=== PATIENT | female | born 1960 | race Caucasian/White ===

== ENCOUNTER → 2017-10-31 09:10 | Outpatient (CLI) | payer MEDICARE, OTHER, SELFPAY ==
[2017-10-31 09:48] LABS: Basophils # 0.1 K/mm3 (0-0.2); Basophils % 0.7 % (0.1-2.0); Eosinophils # 0.2 K/mm3 (0.0-0.4); Eosinophils % 2.3 % (0.1-12.0); Hematocrit 42.1 % (37.0-47.0); Hemoglobin 13.6 g/dL (12.2-16.2); Lymphocytes # 1.7 K/mm3 (0.7-4.5); Lymphocytes % 18.8 K/mm3 (10-50); Mean Corpuscular HGB Conc 32.4 g/dL (31.8-35.4); Mean Corpuscular Hemoglobin 33.5 pg (27.0-31.2); Mean Corpuscular Volume 103.5 fl (81-99); Monocytes # 0.7 K/mm3 (0.1-1.0); Monocytes % 7.8 % (1.7-9.3); Neutrophils # 6.5 K/mm3 (1.8-7.8); Neutrophils % 70.4 % (37.0-80.0); Platelet Count 322 K/mm3 (142-424); Red Blood Count 4.07 M/mm3 (4.20-5.40); Red Cell Distribution Width 15.6 % (11.5-17.5); White Blood Count 9.2 K/mm3 (4.8-10.8)
[2017-10-31 10:44] LABS: Alanine Aminotransferase 25 U/L (12-78); Aspartate Amino Transferase 21 U/L (15-37); Blood Urea Nitrogen 21 mg/dL (7-18); Creatinine,Serum 0.85 mg/dL (0.55-1.02); Estimated Glomerular Filt Rate 69 ml/min (>60); GFR (African American) 84 ML/MIN (>60)
[2017-10-31 10:55] LABS: Chol/HDL Ratio 1.9 (1-3.5); Cholesterol 153 mg/dL (140-200); HDL Cholesterol 79 mg/dL (29-89); LDL Cholesterol 47 mg/dL (0-130); Triglycerides 136 mg/dL (30-200); VLDL Cholesterol 27 mg/dL (0-40)
[2017-11-01 10:16] LABS: Creatinine, Urine 62.7 mg/dL (Not Estab.); Microalbumin, Urine <3.0 ug/mL (Not Estab.)
== END ==
PROVIDERS: Nurse Practitioner; PCP Family Medicine; Visit Provider Family Medicine
DX: M06.9 Rheumatoid arthritis, unspecified (principal); E78.5 Hyperlipidemia, unspecified; I10 Essential (primary) hypertension
CPT/HCPCS: 36415; 80061; 82043; 82565; 84450; 84460; 84520; 85025

== ENCOUNTER → 2018-01-27 10:49 | Outpatient (CLI) | payer MEDICARE, OTHER, SELFPAY ==
--- NOTE | 2018-01-27 10:53 | MM_ITS ---
MM Dig screening mamm BI w/CAD CAD Screening COMPARISON: Digital mammograms 12/27/2016 and 12/09/2015 INDICATION: There is a history of breast cancer patient's mother diagnosed in her 50s TECHNIQUE: Standard CC and MLO images were obtained. R2 CAD reviewed. FINDINGS: The breasts are composed primarily of fat with minimal scattered fiber glandular densities in each breast. There is no suspicious lesion in either breast and there are no suspicious microcalcifications. IMPRESSION: Fatty type breast parenchyma with no suspicious lesion seen BI-RADS Category: 1 Negative RECOMMENDED FOLLOW-UP: 1YR - 1 YEAR FOLLOW-UP (A letter has been sent to the patient regarding results of the study.)
[2018-01-27 11:48] LABS: Basophils # 0.1 K/mm3 (0-0.2); Basophils % 0.4 % (0.1-2.0); Eosinophils # 0.1 K/mm3 (0.0-0.4); Eosinophils % 0.7 % (0.1-12.0); Hematocrit 48.1 % (37.0-47.0); Hemoglobin 15.4 g/dL (12.2-16.2); Lymphocytes # 1.3 K/mm3 (0.7-4.5); Lymphocytes % 7.7 K/mm3 (10-50); Mean Corpuscular HGB Conc 32.1 g/dL (31.8-35.4); Mean Corpuscular Hemoglobin 33.8 pg (27.0-31.2); Mean Corpuscular Volume 105.4 fl (81-99); Mean Platelet Volume 8.4 fl (7.4-10.4); Monocytes # 0.7 K/mm3 (0.1-1.0); Monocytes % 4.1 % (1.7-9.3); Neutrophils # 14.3 K/mm3 (1.8-7.8); Platelet Count 431 K/mm3 (142-424); Red Blood Count 4.57 M/mm3 (4.20-5.40); Red Cell Distribution Width 14.5 % (11.5-17.5); White Blood Count 16.4 K/mm3 (4.8-10.8)
[2018-01-27 11:51] LABS: MANUAL DIFFERENTIAL MANUAL DIFFERENTIAL (MANUAL DIFF)
[2018-01-27 12:30] LABS: Lymphocytes % 3 % (10-50); Monocytes % 6 % (2-9); Neutrophils % 91 % (42-76); Platelet Estimate Slight Increase; Total Cells Counted 100
[2018-01-27 12:31] LABS: Macrocytosis 1+
[2018-01-27 12:32] LABS: Erythrocyte Sedimentation Rate 32 mm/hr (0-30)
[2018-01-27 14:57] LABS: Alanine Aminotransferase 27 U/L (12-78); Aspartate Amino Transferase 24 U/L (15-37); Blood Urea Nitrogen 18 mg/dL (7-18); Creatinine,Serum 1.04 mg/dL (0.55-1.02); Estimated Glomerular Filt Rate 55 ml/min (>60); GFR (African American) 66 ML/MIN (>60)
== END ==
PROVIDERS: Nurse Practitioner; PCP Family Medicine; Visit Provider Family Medicine
DX: Z12.31 Encounter for screening mammogram for malignant neoplasm of breast (principal); M06.9 Rheumatoid arthritis, unspecified
CPT/HCPCS: 36415; 77067; 82565; 84450; 84460; 84520; 85007; 85025; 85651

== ENCOUNTER → 2018-02-15 13:23 | Outpatient (CLI) | payer MEDICARE, OTHER, SELFPAY ==
[2018-02-15 14:04] LABS: Basophils % 0.3 % (0.1-2.0); Eosinophils % 0.3 % (0.1-12.0); Hematocrit 43.5 % (37.0-47.0); Hemoglobin 14.3 g/dL (12.2-16.2); Lymphocytes # 0.9 K/mm3 (0.7-4.5); Mean Corpuscular Hemoglobin 33.8 pg (27.0-31.2); Mean Corpuscular Volume 102.5 fl (81-99); Mean Platelet Volume 8.4 fl (7.4-10.4); Monocytes # 0.8 K/mm3 (0.1-1.0); Monocytes % 5.7 % (1.7-9.3); Neutrophils # 11.6 K/mm3 (1.8-7.8); Neutrophils % 86.7 % (37.0-80.0); Platelet Count 342 K/mm3 (142-424); Red Blood Count 4.24 M/mm3 (4.20-5.40); Red Cell Distribution Width 14.8 % (11.5-17.5); White Blood Count 13.4 K/mm3 (4.8-10.8)
[2018-02-15 14:20] LABS: MANUAL DIFFERENTIAL MANUAL DIFFERENTIAL (MANUAL DIFF)
[2018-02-15 15:33] LABS: Erythrocyte Sedimentation Rate 26 mm/hr (0-30)
[2018-02-15 16:07] LABS: Alanine Aminotransferase 23 U/L (12-78); Aspartate Amino Transferase 24 U/L (15-37); Creatinine,Serum 1.03 mg/dL (0.55-1.02); Estimated Glomerular Filt Rate 55 ml/min (>60); GFR (African American) 67 ML/MIN (>60)
[2018-02-15 17:03] LABS: Lymphocytes % 4 % (10-50); Monocytes % 4 % (2-9); Neutrophils % 91 % (42-76); Platelet Estimate Normal; Total Cells Counted 100
[2018-02-15 17:04] LABS: Macrocytosis 1+
== END ==
PROVIDERS: Visit Provider Nurse Practitioner
DX: M06.9 Rheumatoid arthritis, unspecified (principal); Z79.899 Other long term (current) drug therapy
CPT/HCPCS: 36415; 82565; 84450; 84460; 85007; 85025; 85651

== ENCOUNTER → 2018-04-25 11:52 | Outpatient (CLI) | payer MEDICARE, OTHER, SELFPAY ==
[2018-04-25 12:14] LABS: Basophils # 0.1 K/mm3 (0-0.2); Basophils % 0.4 % (0.1-2.0); Eosinophils # 0.1 K/mm3 (0.0-0.4); Eosinophils % 0.9 % (0.1-12.0); Hematocrit 48.7 % (37.0-47.0); Hemoglobin 14.9 g/dL (12.2-16.2); Lymphocytes % 6.6 K/mm3 (10-50); Mean Corpuscular HGB Conc 30.6 g/dL (31.8-35.4); Mean Corpuscular Hemoglobin 31.9 pg (27.0-31.2); Mean Platelet Volume 8.5 fl (7.4-10.4); Monocytes # 0.8 K/mm3 (0.1-1.0); Monocytes % 5.2 % (1.7-9.3); Neutrophils # 13.6 K/mm3 (1.8-7.8); Platelet Count 344 K/mm3 (142-424); Red Blood Count 4.68 M/mm3 (4.20-5.40); Red Cell Distribution Width 14.7 % (11.5-17.5); White Blood Count 15.6 K/mm3 (4.8-10.8)
[2018-04-25 12:34] LABS: MANUAL DIFFERENTIAL MANUAL DIFFERENTIAL (MANUAL DIFF)
[2018-04-25 13:27] LABS: Alanine Aminotransferase 26 U/L (12-78); Aspartate Amino Transferase 16 U/L (15-37); Blood Urea Nitrogen 25 mg/dL (7-18); Creatinine,Serum 0.92 mg/dL (0.55-1.02); Estimated Glomerular Filt Rate 63 ml/min (>60); GFR (African American) 76 ML/MIN (>60)
[2018-04-25 14:22] LABS: Lymphocytes % 12 % (10-50); Monocytes % 5 % (2-9); Neutrophils % 80 % (42-76); Platelet Estimate Normal; Total Cells Counted 100
[2018-04-25 14:23] LABS: Macrocytosis 1+
== END ==
PROVIDERS: Visit Provider Nurse Practitioner
DX: M06.9 Rheumatoid arthritis, unspecified (principal)
CPT/HCPCS: 36415; 82565; 84450; 84460; 84520; 85007; 85025

== ENCOUNTER → 2018-05-04 11:25 | Outpatient (CLI) | payer MEDICARE, OTHER, SELFPAY ==
[2018-05-04 11:30] LABS: Microscopic, Urine URINE MICROSCOPIC (MICROSCOPIC)
--- NOTE | 2018-05-04 11:49 | XR_ITS ---
XR chest 2V HISTORY: ITS.REASON: LEUKOCYTOSIS ORDERING PHYSICIAN: Sandoval Tuttle MD PATIENT AGE: 57 years Technique: PA lateral chest COMPARISON: 03/10/2016 comparison & October 2011. FINDINGS: Patient with pronounced thoracic kyphosis which distorts the chest. However overall lungs appears stable with nothing definitely acute evident. No significant new findings. There is slight blunting right CP angle but this appears to be chronic in nature. Bilateral rib deformities from Multiple old left rib fractures and right rib fractures are seen since 2011. Cardiomegaly but no vascular congestion or CHF. The prominent ascending aorta again noted and stable feature. Possibly reflection of underlying hypertension A small subtle old area of calcification in density just above the posterior left hemidiaphragm was seen on 2010 CT with subtle stippled calcification stable here since prior chest films IMPRESSION stable chest nothing definitely acute. Cardiomegaly. Bilateral rib fractures. Pronounced kyphosis
[2018-05-04 11:59] LABS: Basophils % 0.4 % (0.1-2.0); Eosinophils # 0.2 K/mm3 (0.0-0.4); Eosinophils % 1.6 % (0.1-12.0); Hematocrit 43.3 % (37.0-47.0); Hemoglobin 13.9 g/dL (12.2-16.2); Lymphocytes # 1.8 K/mm3 (0.7-4.5); Lymphocytes % 15.1 K/mm3 (10-50); Mean Corpuscular HGB Conc 32.1 g/dL (31.8-35.4); Mean Corpuscular Hemoglobin 33.7 pg (27.0-31.2); Mean Corpuscular Volume 104.7 fl (81-99); Mean Platelet Volume 8.2 fl (7.4-10.4); Monocytes # 0.7 K/mm3 (0.1-1.0); Monocytes % 6.2 % (1.7-9.3); Neutrophils # 8.9 K/mm3 (1.8-7.8); Neutrophils % 76.7 % (37.0-80.0); Platelet Count 345 K/mm3 (142-424); Red Blood Count 4.14 M/mm3 (4.20-5.40); Red Cell Distribution Width 14.8 % (11.5-17.5); White Blood Count 11.7 K/mm3 (4.8-10.8)
[2018-05-04 12:23] LABS: Appearance,Urine CLEAR (Clear); Bilirubin,Urine Negative (Negative); Blood, Urine Negative (Negative); Color,Urine YELLOW (Yellow); Glucose,Urine (UA) Negative (Negative); Ketones,Urine Negative (Negative); Leukocyte Esterase,Urine TRACE (Negative); Nitrate,Urine Negative (Negative); Protein,Urine Negative (Negative); Urobilinogen,Urine 0.2 EU/dl (0.2)
[2018-05-04 12:56] LABS: Bacteria,Urine Trace /lpf
[2018-05-04 13:21] LABS: Alanine Aminotransferase 31 U/L (12-78); Albumin Level 3.8 gm/dL (3.4-5.0); Albumin/Globulin Ratio 1.2 (1.1-1.8); Alkaline Phosphatase 103 U/L (46-116); Anion Gap 15.2 mEq/L (5-15); Aspartate Amino Transferase 19 U/L (15-37); Bilirubin,Total 0.6 mg/dL (0.2-1.0); Blood Urea Nitrogen 22 mg/dL (7-18); Calcium 9.5 mg/dL (8.5-10.1); Carbon Dioxide 27 mmol/L (21.0-32.0); Chloride 100 mmol/L (98-107); Chol/HDL Ratio 2.2 (1-3.5); Cholesterol 152 mg/dL (140-200); Creatinine,Serum 0.87 mg/dL (0.55-1.02); Estimated Glomerular Filt Rate 67 ml/min (>60); GFR (African American) 81 ML/MIN (>60); Globulin 3.1 gm/dl (1.3-3.2); Glucose 94 mg/dL (74-106); HDL Cholesterol 70 mg/dL (29-89); LDL Cholesterol 56 mg/dL (0-130); Potassium 4.2 mmoL/L (3.5-5.1); Sodium 138 mmol/L (136-145); Thyroid Stimulating Hormone 2.05 uIU/ml (0.358-3.740); Total Protein,Serum 6.9 gm/dL (6.4-8.2); Triglycerides 130 mg/dL (30-200); VLDL Cholesterol 26 mg/dL (0-40)
[2018-05-05 14:54] LABS: Folate >20.0 ng/mL (>3.0); Vitamin B12 589 pg/mL (232-1245)
[2018-05-06 11:28] LABS: Peripheral Smear Review Scanned Result
== END ==
PROVIDERS: Visit Provider Family Medicine
DX: R71.8 Other abnormality of red blood cells (principal); R10.84 Generalized abdominal pain; I10 Essential (primary) hypertension; E78.5 Hyperlipidemia, unspecified; D72.829 Elevated white blood cell count, unspecified; M06.9 Rheumatoid arthritis, unspecified
CPT/HCPCS: 36415; 71046; 80053; 80061; 81001; 82607; 82746; 84443; 85025

== ENCOUNTER → 2018-07-17 09:25 | Outpatient (CLI) | payer MEDICARE, OTHER, SELFPAY ==
[2018-07-17 10:23] LABS: Alanine Aminotransferase 25 U/L (12-78); Aspartate Amino Transferase 19 U/L (15-37); Blood Urea Nitrogen 21 mg/dL (7-18); Creatinine,Serum 0.91 mg/dL (0.55-1.02); Estimated Glomerular Filt Rate 64 ml/min (>60); GFR (African American) 77 ML/MIN (>60)
== END ==
PROVIDERS: PCP Family Medicine; Visit Provider Nurse Practitioner
DX: M06.9 Rheumatoid arthritis, unspecified (principal)
CPT/HCPCS: 36415; 82565; 84450; 84460; 84520

== ENCOUNTER → 2018-07-24 09:28 | Outpatient (CLI) | payer MEDICARE, OTHER, SELFPAY ==
[2018-07-24 10:00] LABS: Basophils # 0.1 K/mm3 (0-0.2); Basophils % 0.4 % (0.1-2.0); Eosinophils # 0.2 K/mm3 (0.0-0.4); Eosinophils % 1.4 % (0.1-12.0); Hematocrit 41.4 % (37.0-47.0); Hemoglobin 13.1 g/dL (12.2-16.2); Lymphocytes # 1.3 K/mm3 (0.7-4.5); Lymphocytes % 9.8 K/mm3 (10-50); Mean Corpuscular HGB Conc 31.6 g/dL (31.8-35.4); Mean Corpuscular Hemoglobin 33.2 pg (27.0-31.2); Mean Corpuscular Volume 105.3 fl (81-99); Mean Platelet Volume 7.9 fl (7.4-10.4); Monocytes # 0.9 K/mm3 (0.1-1.0); Monocytes % 6.4 % (1.7-9.3); Platelet Count 344 K/mm3 (142-424); Red Blood Count 3.93 M/mm3 (4.20-5.40); White Blood Count 13.4 K/mm3 (4.8-10.8)
[2018-07-24 11:07] LABS: Erythrocyte Sedimentation Rate 35 mm/hr (0-30)
== END ==
PROVIDERS: PCP Family Medicine; Visit Provider Nurse Practitioner
DX: Z79.899 Other long term (current) drug therapy (principal)
CPT/HCPCS: 36415; 85025; 85651

== ENCOUNTER → 2018-10-27 12:19 | Outpatient (CLI) | payer MEDICARE, OTHER, SELFPAY ==
[2018-10-27 12:34] LABS: Basophils % 0.3 % (0.1-2.0); Eosinophils # 0.1 K/mm3 (0.0-0.4); Eosinophils % 0.3 % (0.1-12.0); Hematocrit 44.7 % (37.0-47.0); Hemoglobin 14.2 g/dL (12.2-16.2); Lymphocytes # 1.2 K/mm3 (0.7-4.5); Lymphocytes % 7.7 % (10-50); Mean Corpuscular HGB Conc 31.9 g/dL (31.8-35.4); Mean Corpuscular Hemoglobin 32.7 pg (27.0-31.2); Mean Corpuscular Volume 102.7 fl (81-99); Monocytes # 0.7 K/mm3 (0.1-1.0); Monocytes % 4.6 % (1.7-9.3); Neutrophils # 13.2 K/mm3 (1.8-7.8); Neutrophils % 87.1 % (37.0-80.0); Platelet Count 383 K/mm3 (142-424); Red Blood Count 4.35 M/mm3 (4.20-5.40); Red Cell Distribution Width 15.7 % (11.5-17.5); White Blood Count 15.1 K/mm3 (4.8-10.8)
[2018-10-27 12:37] LABS: MANUAL DIFFERENTIAL MANUAL DIFFERENTIAL (MANUAL DIFF)
[2018-10-27 14:28] LABS: Lymphocytes % 7 % (10-50); Macrocytosis 1+; Monocytes % 3 % (2-9); Neutrophils % 90 % (42-76); Platelet Estimate Normal; Total Cells Counted 100
[2018-10-27 15:18] LABS: Alanine Aminotransferase 36 U/L (12-78); Aspartate Amino Transferase 22 U/L (15-37); Blood Urea Nitrogen 24 mg/dL (7-18); Creatinine,Serum 0.99 mg/dL (0.55-1.02); Estimated Glomerular Filt Rate 58 ml/min (>60); GFR (African American) 70 ML/MIN (>60)
== END ==
PROVIDERS: Visit Provider Nurse Practitioner
DX: M06.9 Rheumatoid arthritis, unspecified (principal)
CPT/HCPCS: 36415; 82565; 84450; 84460; 84520; 85007; 85025

== ENCOUNTER → 2019-02-01 11:19 | Outpatient (CLI) | payer MEDICARE, OTHER, SELFPAY ==
[2019-02-01 12:05] LABS: Basophils # 0.1 K/mm3 (0-0.2); Basophils % 0.5 % (0.1-2.0); Eosinophils # 0.1 K/mm3 (0.0-0.4); Eosinophils % 0.9 % (0.1-12.0); Hematocrit 45.5 % (37.0-47.0); Hemoglobin 14.6 g/dL (12.2-16.2); Lymphocytes # 1.2 K/mm3 (0.7-4.5); Mean Corpuscular HGB Conc 32.2 g/dL (31.8-35.4); Mean Corpuscular Hemoglobin 33.5 pg (27.0-31.2); Mean Corpuscular Volume 104.3 fl (81-99); Mean Platelet Volume 7.5 fl (7.4-10.4); Monocytes # 0.7 K/mm3 (0.1-1.0); Monocytes % 5.7 % (1.7-9.3); Neutrophils # 10.2 K/mm3 (1.8-7.8); Neutrophils % 82.9 % (37.0-80.0); Platelet Count 430 K/mm3 (142-424); Red Blood Count 4.37 M/mm3 (4.20-5.40); Red Cell Distribution Width 14.6 % (11.5-17.5); White Blood Count 12.4 K/mm3 (4.8-10.8)
[2019-02-01 15:52] LABS: Alanine Aminotransferase 49 U/L (12-78); Aspartate Amino Transferase 27 U/L (15-37); Blood Urea Nitrogen 18 mg/dL (7-18); Creatinine,Serum 0.99 mg/dL (0.55-1.02); Estimated Glomerular Filt Rate 58 ml/min (>60); GFR (African American) 70 ML/MIN (>60)
== END ==
PROVIDERS: Visit Provider Nurse Practitioner
DX: M06.9 Rheumatoid arthritis, unspecified (principal)
CPT/HCPCS: 36415; 82565; 84450; 84460; 84520; 85025

== ENCOUNTER → 2019-02-20 10:57 | Outpatient (CLI) | payer MEDICARE, OTHER, SELFPAY ==
--- NOTE | 2019-02-20 11:01 | MM_ITS ---
MM Dig screening mamm BI w/CAD ORDERING PHYSICIAN : Sandoval Tuttle MD PATIENT AGE: 58 years GENDER: Female COMPARISON: Bilateral digital mammogram from January 2018, December 2016, 2015 INDICATION: Routine screening no hormones. No new complaints. Rheumatoid arthritis since age 19 Family history. Mother with breast cancer age 50 TECHNIQUE: Standard CC and MLO images were obtained. R2 CAD reviewed. FINDINGS: Low-density breast bilaterally with generalized fatty replacement. Minor residual fibroglandular elements bilateral No suspicious findings. No New areas of concern either breast. No dominant mass nor suspicious calcifications either breast. No new areas of significant concern. Computer CAD review highlights no areas of concern either.. Follow follow-up one year recommended ...... IMPRESSION: ......... Negative stable bilateral mammogram. Low-density breast with no new areas of concern Bilateral follow-up one year BI-RADS Category: 1 Negative RECOMMENDED FOLLOW-UP: 1YR 1 YEAR FOLLOW-UP (A letter has been sent to the patient regarding results of the study.)
== END ==
PROVIDERS: PCP Family Medicine; Visit Provider Family Medicine
DX: Z12.31 Encounter for screening mammogram for malignant neoplasm of breast (principal)
CPT/HCPCS: 77067

== ENCOUNTER → 2019-04-23 10:01 | Outpatient (CLI) | payer MEDICARE, OTHER, SELFPAY ==
[2019-04-23 11:12] LABS: Basophils % 0.5 % (0.1-2.0); Eosinophils # 0.2 K/mm3 (0.0-0.4); Eosinophils % 1.8 % (0.1-12.0); Hematocrit 40.9 % (37.0-47.0); Hemoglobin 12.8 g/dL (12.2-16.2); Lymphocytes # 1.7 K/mm3 (0.7-4.5); Lymphocytes % 19.6 % (10-50); Mean Corpuscular HGB Conc 31.3 g/dL (31.8-35.4); Mean Corpuscular Hemoglobin 31.7 pg (27.0-31.2); Mean Corpuscular Volume 101.3 fl (81-99); Mean Platelet Volume 8.7 fl (7.4-10.4); Monocytes # 0.7 K/mm3 (0.1-1.0); Monocytes % 8.6 % (1.7-9.3); Neutrophils # 5.9 K/mm3 (1.8-7.8); Neutrophils % 69.5 % (37.0-80.0); Platelet Count 325 K/mm3 (142-424); Red Blood Count 4.04 M/mm3 (4.20-5.40); Red Cell Distribution Width 15.1 % (11.5-17.5); White Blood Count 8.4 K/mm3 (4.8-10.8)
[2019-04-23 13:49] LABS: Erythrocyte Sedimentation Rate 20 mm/hr (0-30)
[2019-04-23 14:30] LABS: Alanine Aminotransferase 26 U/L (12-78); Albumin Level 3.7 gm/dL (3.4-5.0); Albumin/Globulin Ratio 1.2 (1.1-1.8); Alkaline Phosphatase 156 U/L (46-116); Aspartate Amino Transferase 20 U/L (15-37); Bilirubin,Total 0.5 mg/dL (0.2-1.0); Blood Urea Nitrogen 21 mg/dL (7-18); Calcium 9.3 mg/dL (8.5-10.1); Carbon Dioxide 27 mmol/L (21.0-32.0); Chloride 101 mmol/L (98-107); Creatinine,Serum 1.01 mg/dL (0.55-1.02); Estimated Glomerular Filt Rate 56 ml/min (>60); GFR (African American) 68 ML/MIN (>60); Glucose 82 mg/dL (74-106); Sodium 138 mmol/L (136-145); Thyroid Stimulating Hormone 1.92 uIU/ml (0.358-3.740); Total Protein,Serum 6.7 gm/dL (6.4-8.2)
[2019-04-26 10:23] LABS: Chol/HDL Ratio 2.1 (1-3.5); Cholesterol 146 mg/dL (140-200); HDL Cholesterol 68 mg/dL (29-89); LDL Cholesterol 54 mg/dL (0-130); Triglycerides 121 mg/dL (30-200); VLDL Cholesterol 24 mg/dL (0-40)
== END ==
PROVIDERS: Nurse Practitioner; Visit Provider Family Medicine
DX: E78.5 Hyperlipidemia, unspecified (principal); I10 Essential (primary) hypertension; Z79.899 Other long term (current) drug therapy
CPT/HCPCS: 36415; 80053; 80061; 82565; 84443; 84450; 84460; 85025; 85651

== ENCOUNTER → 2019-08-13 09:56 | Outpatient (CLI) | payer MEDICARE, OTHER, SELFPAY ==
[2019-08-13 10:30] LABS: Basophils # 0.1 K/mm3 (0-0.2); Basophils % 0.5 % (0.1-2.0); Eosinophils # 0.2 K/mm3 (0.0-0.4); Hemoglobin 14.3 g/dL (12.2-16.2); Lymphocytes # 1.9 K/mm3 (0.7-4.5); Lymphocytes % 17.8 % (10-50); Mean Corpuscular HGB Conc 31.2 g/dL (31.8-35.4); Mean Corpuscular Hemoglobin 33.1 pg (27.0-31.2); Mean Corpuscular Volume 106.1 fl (81-99); Mean Platelet Volume 9.6 fl (7.4-10.4); Monocytes # 0.8 K/mm3 (0.1-1.0); Monocytes % 7.3 % (1.7-9.3); Neutrophils # 7.6 K/mm3 (1.8-7.8); Neutrophils % 72.4 % (37.0-80.0); Platelet Count 332 K/mm3 (142-424); Red Blood Count 4.33 M/mm3 (4.20-5.40); Red Cell Distribution Width 14.6 % (11.5-17.5); White Blood Count 10.4 K/mm3 (4.8-10.8)
[2019-08-13 11:42] LABS: Alanine Aminotransferase 21 U/L (12-78); Aspartate Amino Transferase 11 U/L (15-37); Creatinine,Serum 0.83 mg/dL (0.55-1.02); Estimated Glomerular Filt Rate 71 ml/min (>60); GFR (African American) 85 ML/MIN (>60)
[2019-08-13 15:10] LABS: Erythrocyte Sedimentation Rate 15 mm/hr (0-30)
== END ==
PROVIDERS: Visit Provider Nurse Practitioner
DX: M06.9 Rheumatoid arthritis, unspecified (principal)
CPT/HCPCS: 36415; 82565; 84450; 84460; 85025; 85651

== ENCOUNTER → 2019-11-13 10:45 | Outpatient (CLI) | payer MEDICARE, BC, SELFPAY ==
--- NOTE | 2019-11-13 10:50 | XR_ITS ---
PROCEDURE: XR DEXA AXIAL SKELETON CLINICAL HISTORY: POST MENOPAUSAL COMPARISON: No exams were available for comparison FINDINGS: The L1-L4 density is 1.204 g cm sq with a T-score of 1.4 which is normal. The hips were not performed as the patient has had bilateral hip replacement IMPRESSION: Normal bone density of the lumbar Dictated by: Soto Camargo MD 11/14/2019 13:39 Electronically signed by Soto Camargo MD in [place] 11/14/2019 13:39
[2019-11-13 11:42] LABS: Basophils % 0.3 % (0.1-2.0); Eosinophils # 0.2 K/mm3 (0.0-0.4); Eosinophils % 1.5 % (0.1-12.0); Hematocrit 44.8 % (37.0-47.0); Hemoglobin 14.1 g/dL (12.2-16.2); Lymphocytes # 1.3 K/mm3 (0.7-4.5); Lymphocytes % 8.8 % (10-50); Mean Corpuscular HGB Conc 31.5 g/dL (31.8-35.4); Mean Corpuscular Hemoglobin 32.4 pg (27.0-31.2); Mean Corpuscular Volume 102.9 fl (81-99); Mean Platelet Volume 9.1 fl (7.4-10.4); Monocytes # 0.9 K/mm3 (0.1-1.0); Monocytes % 6.1 % (1.7-9.3); Neutrophils # 12.1 K/mm3 (1.8-7.8); Neutrophils % 83.4 % (37.0-80.0); Platelet Count 372 K/mm3 (142-424); Red Blood Count 4.35 M/mm3 (4.20-5.40); Red Cell Distribution Width 14.9 % (11.5-17.5); White Blood Count 14.5 K/mm3 (4.8-10.8)
[2019-11-13 12:18] LABS: Erythrocyte Sedimentation Rate 19 mm/hr (0-30)
[2019-11-13 17:07] LABS: Alanine Aminotransferase 24 U/L (12-78); Aspartate Amino Transferase 19 U/L (15-37); Creatinine,Serum 0.98 mg/dL (0.55-1.02); Estimated Glomerular Filt Rate 58 ml/min (>60); GFR (African American) 71 ML/MIN (>60)
== END ==
PROVIDERS: PCP Family Medicine; Visit Provider Nurse Practitioner
DX: M81.0 Age-related osteoporosis without current pathological fracture (principal); Z79.899 Other long term (current) drug therapy
CPT/HCPCS: 36415; 77080; 82565; 84450; 84460; 85025; 85651

== ENCOUNTER → 2020-03-24 09:33 | Outpatient (CLI) | payer MEDICARE, BC, SELFPAY ==
[2020-03-24 10:53] LABS: Aspartate Amino Transferase 27 U/L (14-36)
== END ==
PROVIDERS: Visit Provider Nurse Practitioner
DX: Z79.899 Other long term (current) drug therapy (principal)
CPT/HCPCS: 36415; 84450

== ENCOUNTER → 2020-04-16 09:17 | Outpatient (CLI) | payer MEDICARE, BC, SELFPAY ==
--- NOTE | 2020-04-16 09:22 | MM_ITS ---
PROCEDURE: MM DIG SCREENING MAMM BI W/CAD DIGITAL BREAST TOMOSYNTHESIS INCLUDED Patient Age:59Y CLINICAL INDICATION: SCREENING patient kyphotic/rheumatoid arthritis No hormones and no new complaints.. Family history mother with breast cancer in her 50s COMPARISON: [facility] DIG MAMM-SCREEN CLARITA W/CAD from 12/27/2016 [facility] MM Dig screening mamm BI w/CAD from 01/27/2018 DIG MAMM-SCREEN CLARITA from 02/20/2019 TECHNIQUE: Standard CC and MLO images were obtained. R2 CAD reviewed. Bilateral digital breast tomosynthesis included. additional left breast mlo and cc views for nipple profile a. Findings: minimal Residual Fibroglandular Elements But Moderate Fatty Change Throughout But Fibroglandular Elements Are Only Slightly More Evident On Today's Higher Contrast Study t No Significant New Findings No Dominant Or Suspicious New Mass Or Density. No Suspicious Calcifications. Bilateral Follow-up 1 Year recommended Impression: Stable bilateralMammogram. No new areas of concern Bilateral follow-up 1 year recommended BI-RAD Category: 1 Negative FOLLOW-UP: 1YR 1 Year Follow-up (A letter has been sent to the patient regarding results of the study.) Dictated by: Edwin Soto MD 04/21/2020 11:40 Electronically signed by Edwin Soto MD in [place] 04/21/2020 11:40
== END ==
PROVIDERS: PCP Family Medicine; Visit Provider Family Medicine
DX: Z12.31 Encounter for screening mammogram for malignant neoplasm of breast (principal)
CPT/HCPCS: 77063; 77067

== ENCOUNTER → 2020-06-09 11:00 | Outpatient (CLI) | payer MEDICARE, BC, SELFPAY ==
--- NOTE | 2020-06-09 11:12 | XR_ITS ---
PROCEDURE: XR CHEST PORTABLE CLINICAL HISTORY: COVID TESTING COMPARISON: CR CXR CHEST(2 VIEWS-NOT PORTABLE) from 03/10/2016 CR CXR2V XR chest 2V from 05/04/2018 FINDINGS: There is cardiomegaly without failure. There are low lung volumes with chronic changes in the lung bases. There are multiple old bilateral rib fractures. The patient's chin obscures the upper chest centrally. No obvious lobar consolidation or collapse. No acute bony abnormalities. IMPRESSION: Cardiomegaly with chronic changes with old bilateral rib fractures, no acute finding Dictated by: Soto Camargo MD 06/09/2020 11:30 Soto Camargo MD in [place] 06/09/2020 11:30
[2020-06-09 14:18] LABS: Basophils # 0.1 K/mm3 (0-0.2); Basophils % 0.4 % (0.1-2.0); Eosinophils # 0.1 K/mm3 (0.0-0.4); Eosinophils % 0.4 % (0.1-12.0); Hematocrit 38.8 % (37.0-47.0); Hemoglobin 12.8 g/dL (12.2-16.2); Lymphocytes # 1.2 K/mm3 (0.7-4.5); Lymphocytes % 8.9 % (10-50); Mean Corpuscular HGB Conc 33.1 g/dL (31.8-35.4); Mean Corpuscular Volume 102.5 fl (81-99); Mean Platelet Volume 9.4 fl (7.4-10.4); Monocytes # 1.2 K/mm3 (0.1-1.0); Monocytes % 8.7 % (1.7-9.3); Neutrophils # 11.3 K/mm3 (1.8-7.8); Neutrophils % 81.6 % (37.0-80.0); Platelet Count 414 K/mm3 (142-424); Red Blood Count 3.78 M/mm3 (4.20-5.40); Red Cell Distribution Width 15.2 % (11.5-17.5); White Blood Count 13.9 K/mm3 (4.8-10.8)
[2020-06-10 13:10] LABS: Covid-19 Nasal PCR Sendout Lex Positive
== END ==
PROVIDERS: PCP Family Medicine; Visit Provider Family Medicine
DX: Z20.828 Contact with and (suspected) exposure to other viral communicable diseases (principal); U07.1 COVID-19
CPT/HCPCS: 36415; 71045; 85025; U0004

== ENCOUNTER → 2020-07-21 09:45 | Outpatient (CLI) | payer MEDICARE, BC, SELFPAY ==
[2020-07-21 10:34] LABS: Basophils # 0.1 K/mm3 (0-0.2); Basophils % 0.7 % (0.1-2.0); Eosinophils # 0.2 K/mm3 (0.0-0.4); Eosinophils % 1.7 % (0.1-12.0); Hematocrit 45.2 % (37.0-47.0); Hemoglobin 13.9 g/dL (12.2-16.2); Lymphocytes # 2.4 K/mm3 (0.7-4.5); Lymphocytes % 21.7 % (10-50); Mean Corpuscular HGB Conc 30.7 g/dL (31.8-35.4); Mean Corpuscular Hemoglobin 33.3 pg (27.0-31.2); Mean Corpuscular Volume 108.5 fl (81-99); Mean Platelet Volume 8.7 fl (7.4-10.4); Monocytes # 1.1 K/mm3 (0.1-1.0); Monocytes % 9.4 % (1.7-9.3); Neutrophils # 7.4 K/mm3 (1.8-7.8); Neutrophils % 66.6 % (37.0-80.0); Platelet Count 328 K/mm3 (142-424); Red Blood Count 4.16 M/mm3 (4.20-5.40); White Blood Count 11.1 K/mm3 (4.8-10.8)
[2020-07-21 10:57] LABS: Creatinine,Urine Random 26 mg/dL (Not Estab.)
[2020-07-21 11:01] LABS: Chloride 100 mmol/L (98-107); Potassium 4.2 mmoL/L (3.5-5.1); Sodium 138 mmol/L (136-145)
[2020-07-21 11:02] LABS: Microalbumin < 6.000 mg/L (0-16.7)
[2020-07-21 11:03] LABS: Alanine Aminotransferase 19 U/L (12-78); Anion Gap 13.2 mEq/L (5-15); Aspartate Amino Transferase 25 U/L (14-36); Blood Urea Nitrogen 20 mg/dl (7-17); Carbon Dioxide 29 mmol/L (22.0-30.0); Estimated Glomerular Filt Rate 86 ml/min (>60); GFR (African American) 104 ML/MIN (>60)
[2020-07-21 11:04] LABS: Albumin Level 4.3 g/dl (3.5-5.0); Albumin/Globulin Ratio 1.7 (1.1-1.8); Alkaline Phosphatase 136 U/L (38-126); Bilirubin,Total 0.6 mg/dl (0.2-1.3); Calcium 9.6 mg/dl (8.4-10.2); Chol/HDL Ratio 2.3 (1-3.5); Cholesterol 182 mg/dl (140-200); Globulin 2.5 g/dL (1.3-3.2); Glucose 89 mg/dl (74-100); HDL Cholesterol 80 mg/dl (40-60); Total Protein,Serum 6.8 g/dl (6.3-8.2); Triglycerides 185 mg/dl (30-150); VLDL Cholesterol 37 mg/dL (0-40)
[2020-07-21 11:15] LABS: Direct LDL Cholesterol 69.49 mg/dL (100-129)
[2020-07-21 11:35] LABS: Thyroid Stimulating Hormone 1.92 uIU/mL (0.465-4.68)
== END ==
PROVIDERS: Visit Provider Family Medicine
DX: I10 Essential (primary) hypertension (principal); E78.5 Hyperlipidemia, unspecified
CPT/HCPCS: 36415; 80053; 80061; 82043; 82570; 84443; 85025

== ENCOUNTER → 2020-09-01 08:42 | Outpatient (CLI) | payer MEDICARE, BC, SELFPAY ==
[2020-09-01 10:41] LABS: Coronavirus 19 IgG Antibody Negative (Negative); Coronavirus 19 IgM Antibody Negative (Negative)
== END ==
PROVIDERS: Visit Provider Ophthalmology
DX: Z01.818 Encounter for other preprocedural examination (principal)
CPT/HCPCS: 36415; 86328

== ENCOUNTER 2020-09-02 09:06 | Day surgery (SDC) | payer MEDICARE, BC, SELFPAY ==
[2020-08-26 12:59] VITALS: BMI 26.6
[2020-09-02 10:05] VITALS: BP 126/78; PULSE 103; RESP 18; TEMP 36.4; O2SAT 99
[2020-09-02 11:04] VITALS: BP 120/67; PULSE 99; RESP 18; TEMP 36.1; O2SAT 95
== END 2020-09-02 11:10 | disposition home or self-care (01) ==
LOC: OUTP 09:08
PROVIDERS: PCP Family Medicine; Visit Provider Ophthalmology
PROC: (CPT 66821; principal; 2020-09-02 09:30)
DX: H26.493 Other secondary cataract, bilateral (principal); Z96.1 Presence of intraocular lens; I10 Essential (primary) hypertension; E78.00 Pure hypercholesterolemia, unspecified; J45.909 Unspecified asthma, uncomplicated; F41.9 Anxiety disorder, unspecified; K21.9 Gastro-esophageal reflux disease without esophagitis; M19.90 Unspecified osteoarthritis, unspecified site; Z96.649 Presence of unspecified artificial hip joint; Z96.659 Presence of unspecified artificial knee joint; Z88.0 Allergy status to penicillin; Z79.899 Other long term (current) drug therapy
CPT/HCPCS: 66821

== ENCOUNTER → 2020-10-20 10:07 | Outpatient (CLI) | payer MEDICARE, BC, SELFPAY ==
[2020-10-20 10:53] LABS: Basophils # 0.1 K/mm3 (0-0.2); Basophils % 0.7 % (0.1-2.0); Eosinophils # 0.2 K/mm3 (0.0-0.4); Eosinophils % 1.2 % (0.1-12.0); Hematocrit 49.8 % (37.0-47.0); Hemoglobin 15.7 g/dL (12.2-16.2); Lymphocytes # 1.4 K/mm3 (0.7-4.5); Lymphocytes % 11.5 % (10-50); Mean Corpuscular HGB Conc 31.5 g/dL (31.8-35.4); Mean Corpuscular Volume 104.7 fl (81-99); Mean Platelet Volume 8.5 fl (7.4-10.4); Monocytes % 7.8 % (1.7-9.3); Neutrophils # 9.7 K/mm3 (1.8-7.8); Neutrophils % 78.8 % (37.0-80.0); Platelet Count 328 K/mm3 (142-424); Red Blood Count 4.76 M/mm3 (4.20-5.40); Red Cell Distribution Width 15.7 % (11.5-17.5); White Blood Count 12.3 K/mm3 (4.8-10.8)
[2020-10-20 12:40] LABS: Chloride 99 mmol/L (98-107); Potassium 4.1 mmoL/L (3.5-5.1); Sodium 138 mmol/L (136-145)
[2020-10-20 12:43] LABS: Alanine Aminotransferase 18 U/L (12-78); Albumin Level 4.4 g/dl (3.5-5.0); Albumin/Globulin Ratio 1.6 (1.1-1.8); Alkaline Phosphatase 133 U/L (38-126); Anion Gap 15.1 mEq/L (5-15); Aspartate Amino Transferase 26 U/L (14-36); Bilirubin,Total 0.6 mg/dl (0.2-1.3); Blood Urea Nitrogen 25 mg/dl (7-17); Carbon Dioxide 28 mmol/L (22.0-30.0); Estimated Glomerular Filt Rate 73 ml/min (>60); GFR (African American) 89 ML/MIN (>60); Globulin 2.8 g/dL (1.3-3.2); Total Protein,Serum 7.2 g/dl (6.3-8.2)
[2020-10-20 12:44] LABS: Calcium 9.8 mg/dl (8.4-10.2); Glucose 89 mg/dl (74-100)
== END ==
PROVIDERS: Visit Provider Internal Medicine Rheumatology
DX: Z79.899 Other long term (current) drug therapy (principal)
CPT/HCPCS: 36415; 80053; 85025

== ENCOUNTER → 2020-12-10 12:09 | Outpatient (CLI) | payer MEDICARE, BC, SELFPAY ==
[2020-12-10 12:39] LABS: Basophils # 0.1 K/mm3 (0-0.2); Basophils % 0.6 % (0.1-2.0); Eosinophils # 0.2 K/mm3 (0.0-0.4); Eosinophils % 1.1 % (0.1-12.0); Hematocrit 41.5 % (37.0-47.0); Hemoglobin 13.1 g/dL (12.2-16.2); Lymphocytes # 1.7 K/mm3 (0.7-4.5); Lymphocytes % 13.1 % (10-50); Mean Corpuscular HGB Conc 31.6 g/dL (31.8-35.4); Mean Corpuscular Hemoglobin 32.9 pg (27.0-31.2); Mean Corpuscular Volume 103.9 fl (81-99); Mean Platelet Volume 9.1 fl (7.4-10.4); Monocytes # 0.8 K/mm3 (0.1-1.0); Monocytes % 6.2 % (1.7-9.3); Neutrophils # 10.4 K/mm3 (1.8-7.8); Platelet Count 356 K/mm3 (142-424); Red Cell Distribution Width 16.3 % (11.5-17.5); White Blood Count 13.1 K/mm3 (4.8-10.8)
[2020-12-10 13:11] LABS: Erythrocyte Sedimentation Rate 20 mm/hr (0-30)
[2020-12-10 13:39] LABS: Chloride 102 mmol/L (98-107); Potassium 3.8 mmoL/L (3.5-5.1); Sodium 137 mmol/L (136-145)
[2020-12-10 13:42] LABS: Alanine Aminotransferase 28 U/L (12-78); Albumin Level 4.1 g/dl (3.5-5.0); Albumin/Globulin Ratio 1.7 (1.1-1.8); Alkaline Phosphatase 122 U/L (38-126); Anion Gap 11.8 mEq/L (5-15); Aspartate Amino Transferase 33 U/L (14-36); Bilirubin,Total 0.5 mg/dl (0.2-1.3); Blood Urea Nitrogen 26 mg/dl (7-17); Calcium 9.6 mg/dl (8.4-10.2); Carbon Dioxide 27 mmol/L (22.0-30.0); Estimated Glomerular Filt Rate 86 ml/min (>60); GFR (African American) 104 ML/MIN (>60); Globulin 2.4 g/dL (1.3-3.2); Glucose 93 mg/dl (74-100); Total Protein,Serum 6.5 g/dl (6.3-8.2)
[2020-12-10 13:48] LABS: C-Reactive Protein 1.1 mg/L (0-4)
== END ==
PROVIDERS: Visit Provider Internal Medicine Rheumatology
DX: Z79.899 Other long term (current) drug therapy (principal)
CPT/HCPCS: 36415; 80053; 85025; 85651; 86140

== ENCOUNTER → 2021-03-13 11:47 | Outpatient (CLI) | payer MEDICARE, BC, SELFPAY ==
[2021-03-13 12:10] LABS: Basophils # 0.1 K/mm3 (0-0.2); Basophils % 0.4 % (0.1-2.0); Eosinophils # 0.2 K/mm3 (0.0-0.4); Eosinophils % 1.5 % (0.1-12.0); Hematocrit 41.7 % (37.0-47.0); Hemoglobin 13.6 g/dL (12.2-16.2); Lymphocytes # 1.2 K/mm3 (0.7-4.5); Lymphocytes % 10.6 % (10-50); Mean Corpuscular HGB Conc 32.7 g/dL (31.8-35.4); Mean Corpuscular Hemoglobin 33.3 pg (27.0-31.2); Mean Corpuscular Volume 101.8 fl (81-99); Mean Platelet Volume 8.7 fl (7.4-10.4); Monocytes # 0.7 K/mm3 (0.1-1.0); Neutrophils # 9.1 K/mm3 (1.8-7.8); Neutrophils % 81.6 % (37.0-80.0); Platelet Count 300 K/mm3 (142-424); Red Cell Distribution Width 16.3 % (11.5-17.5); White Blood Count 11.2 K/mm3 (4.8-10.8)
[2021-03-13 12:26] LABS: Chloride 100 mmol/L (98-107); Potassium 4.1 mmoL/L (3.5-5.1); Sodium 137 mmol/L (136-145)
[2021-03-13 12:28] LABS: Blood Urea Nitrogen 19 mg/dl (7-17); Estimated Glomerular Filt Rate 73 ml/min (>60); GFR (African American) 89 ML/MIN (>60)
[2021-03-13 12:29] LABS: Alanine Aminotransferase 47 U/L (12-78); Albumin Level 4.1 g/dl (3.5-5.0); Albumin/Globulin Ratio 1.6 (1.1-1.8); Alkaline Phosphatase 158 U/L (38-126); Anion Gap 14.1 mEq/L (5-15); Aspartate Amino Transferase 41 U/L (14-36); Bilirubin,Total 0.7 mg/dl (0.2-1.3); Calcium 9.3 mg/dl (8.4-10.2); Carbon Dioxide 27 mmol/L (22.0-30.0); Globulin 2.5 g/dL (1.3-3.2); Glucose 100 mg/dl (74-100); Total Protein,Serum 6.6 g/dl (6.3-8.2)
[2021-03-13 12:36] LABS: C-Reactive Protein 4.5 mg/L (0-4)
[2021-03-13 12:41] LABS: Erythrocyte Sedimentation Rate 18 mm/hr (0-30)
== END ==
PROVIDERS: Visit Provider Internal Medicine Rheumatology
DX: Z79.899 Other long term (current) drug therapy (principal)
CPT/HCPCS: 36415; 80053; 85025; 85651; 86140

== ENCOUNTER → 2021-04-01 10:55 | Outpatient (CLI) | payer MEDICARE, BC, SELFPAY ==
--- NOTE | 2021-04-01 | XR_ITS ---
PROCEDURE: XR ANKLE LT MIN 3V CLINICAL INDICATION: ACUTE LT ANKLE PAIN Mild osteopenia, no acute findings seen COMPARISON: No exams were available for comparison FINDINGS: There is mild generalized osteopenia. Lower tibia and fibula appear intact, medial and lateral malleolus appear grossly normal. There is minor spurring of the tip of the lateral malleolus. The ankle mortise appears. There is minor spurring superiorly of the talo navicular articulation there is no significant soft tissue swelling. IMPRESSION: No acute findings. Dictated by: Dr. Андрей Sawyer MD 04/01/2021 12:13 Dr. Андрей Sawyer MD in [place] 04/01/2021 12:13
--- NOTE | 2021-04-01 | XR_ITS ---
PROCEDURE: XR FOOT RT MIN 3V CLINICAL INDICATION: RT FOOT PAIN COMPARISON: No exams were available for comparison FINDINGS: There is generalized osteopenia. There is mild deformity of the distal fibula secondary an old healed fracture. There is apparent auto fusion of the talus and navicular bone and there is sclerosis and narrowing of the navicular trapezium articulation. Metatarsals and phalanges appear intact. There appear to be hammertoe deformities of the 2nd through 5th toes. The plantar arch is normal, the there are no calcaneal spurs. There is very minor cortical irregularity of the head of the 4th metatarsal possibly due to old healed fracture. The possibility of an acute nondisplaced fracture cannot be entirely excluded, difficult to be certain because of the underlying osteopenia. Other findings:None. IMPRESSION: Generalized osteopenia which could be secondary to the patient's known rheumatoid arthritis, apparent auto fusion of the talus and navicular bone and arthritic changes between the navicular and trapezium. Hammertoe deformities as noted. Question nondisplaced fracture head of 4th metatarsal though somewhat favor deformity from an old healed fracture. Dictated by: Dr. Андрей Sawyer MD 04/01/2021 12:20 Dr. Андрей Sawyer MD in [place] 04/01/2021 12:20
--- NOTE | 2021-04-01 | XR_ITS ---
PROCEDURE: XR TIBIA FIBULA LT 2V CLINICAL INDICATION: ACUTE LT ANKLE PAIN COMPARISON: No exams were available for comparison FINDINGS: A total knee prosthesis in place. The femoral component is in alignment apposition to the tibial plateau component. Opaque methylmethacrylate seen about the medullary stem of the tibial component. No evidence of loosening. There is and opaque plug undersurface of patella. The proximal tibia and fibula appear intact with no evidence of recent or old fracture. The soft tissues are normal. IMPRESSION: Normal appearing total knee prosthesis and proximal tibia and fibula Dictated by: Dr. Андрей Sawyer MD 04/01/2021 12:10 Dr. Андрей Sawyer MD in [place] 04/01/2021 12:10
--- NOTE | 2021-04-01 | CA_ITS ---
APPROVED REPORT Left Lower Extremity Venous Study for DVT. Sports Writer: RT Minesh(R) Indications Lower Extremity Pain: Left Fell 1 week ago with pain to the posterior lateral distal calf. Redness noted. HTN, hyperlipidemia Vein Imaging CFV (L): compressive, spontaneous, phasic, augmentation FEM (L): compressive, spontaneous, phasic, augmentation POP (L): compressive, spontaneous, phasic, augmentation PTV (L): Compressible GSV (L): Compressible Peroneals (L):Compressible GAS (L): Compressible Findings No evidence of DVT or superficial thrombophlebitis in the veins scanned of the left lower extremity. Conclusion No evidence of DVT or superficial thrombophlebitis in the veins scanned of the left lower extremity. Electronically signed by : Soto Camargo MD 04/02/2021 16:12:29
== END ==
PROVIDERS: PCP Family Medicine; Visit Provider Nurse Practitioner
DX: M79.662 Pain in left lower leg (principal); M25.572 Pain in left ankle and joints of left foot; M79.671 Pain in right foot
CPT/HCPCS: 73590; 73610; 73630; 93971

== ENCOUNTER → 2021-04-27 09:59 | Outpatient (CLI) | payer MEDICARE, BC, SELFPAY ==
--- NOTE | 2021-04-27 10:04 | MM_ITS ---
PROCEDURE: MM DIG SCREENING MAMM BI W/CAD Digital Breast Tomosynthesis Included CLINICAL INDICATION: SCREENING COMPARISON: MG MM DIG SCREENING MAMM BI W/CAD from 04/16/2020 TECHNIQUE: Standard CC and MLO images and 3D Tomosynthesis was obtained. R2 CAD reviewed. FINDINGS: The breasts are composed of scattered fibroglandular tissue. No dominant mass lesion, suspicious calcification or architectural distortion is noted. IMPRESSION: No focal lesions. BI-RAD Category: 1 Negative FOLLOW-UP: 1 YR 1 Year Follow-up (A letter has been sent to the patient regarding results of the study.) Dictated by: Carol Shah 04/28/2021 08:33 Carol Shah in [place] 04/28/2021 08:33
== END ==
PROVIDERS: PCP Family Medicine; Visit Provider Family Medicine
DX: Z12.31 Encounter for screening mammogram for malignant neoplasm of breast (principal)
CPT/HCPCS: 77063; 77067

== ENCOUNTER → 2021-05-12 11:09 | Outpatient (POV) | payer MEDICARE, BC, SELFPAY | PROVIDERS: Visit Provider Dermatology | DX: Z00.00 Encounter for general adult medical examination without abnormal findings (principal) ==

== ENCOUNTER → 2021-05-28 11:52 | Outpatient (CLI) | payer MEDICARE, BC, SELFPAY ==
[2021-05-28 12:34] LABS: Basophils # 0.1 K/mm3 (0-0.2); Basophils % 0.5 % (0.1-2.0); Eosinophils # 0.2 K/mm3 (0.0-0.4); Eosinophils % 1.2 % (0.1-12.0); Hematocrit 42.2 % (37.0-47.0); Hemoglobin 14.1 g/dL (12.2-16.2); Lymphocytes # 1.7 K/mm3 (0.7-4.5); Lymphocytes % 11.6 % (10-50); Mean Corpuscular HGB Conc 33.5 g/dL (31.8-35.4); Mean Corpuscular Hemoglobin 33.5 pg (27.0-31.2); Mean Corpuscular Volume 100.1 fl (81-99); Mean Platelet Volume 9.1 fl (7.4-10.4); Monocytes # 1.1 K/mm3 (0.1-1.0); Monocytes % 7.5 % (1.7-9.3); Neutrophils # 11.3 K/mm3 (1.8-7.8); Neutrophils % 79.2 % (37.0-80.0); Platelet Count 365 K/mm3 (142-424); Red Blood Count 4.22 M/mm3 (4.20-5.40); Red Cell Distribution Width 16.5 % (11.5-17.5); White Blood Count 14.3 K/mm3 (4.8-10.8)
[2021-05-28 13:01] LABS: Erythrocyte Sedimentation Rate 18 mm/hr (0-30)
[2021-05-28 13:12] LABS: Alanine Aminotransferase 23 U/L (12-78); Aspartate Amino Transferase 33 U/L (14-36); Blood Urea Nitrogen 20 mg/dl (7-17); Estimated Glomerular Filt Rate 85 ml/min (>60); GFR (African American) 103 ML/MIN (>60)
[2021-05-28 13:13] LABS: Albumin Level 4.4 g/dl (3.5-5.0); Albumin/Globulin Ratio 1.8 (1.1-1.8); Alkaline Phosphatase 174 U/L (38-126); Bilirubin,Total 0.6 mg/dl (0.2-1.3); Calcium 9.3 mg/dl (8.4-10.2); Creatine Kinase 23 U/L (30-135); Globulin 2.5 g/dL (1.3-3.2); Glucose 94 mg/dl (74-100); Total Protein,Serum 6.9 g/dl (6.3-8.2)
[2021-05-28 13:18] LABS: C-Reactive Protein 1.8 mg/L (0-4)
[2021-05-28 19:18] LABS: Anion Gap 14.3 mEq/L (5-15); Carbon Dioxide 26 mmol/L (22.0-30.0); Chloride 101 mmol/L (98-107); Potassium 4.3 mmoL/L (3.5-5.1); Sodium 137 mmol/L (136-145)
[2021-05-29 17:34] LABS: Aldolase 7.9 U/L (3.3-10.3)
== END ==
PROVIDERS: Visit Provider Internal Medicine Rheumatology
DX: D72.829 Elevated white blood cell count, unspecified (principal); M34.9 Systemic sclerosis, unspecified; I10 Essential (primary) hypertension; E78.00 Pure hypercholesterolemia, unspecified; M81.0 Age-related osteoporosis without current pathological fracture; Z79.899 Other long term (current) drug therapy
CPT/HCPCS: 36415; 80053; 82085; 82550; 85025; 85651; 86140

== ENCOUNTER → 2021-06-17 11:53 | Outpatient (CLI) | payer MEDICARE, BC, SELFPAY ==
[2021-06-17 13:41] LABS: Uric Acid 5.5 mg/dl (2.5-6.2)
== END ==
PROVIDERS: Visit Provider Internal Medicine Rheumatology
DX: D72.829 Elevated white blood cell count, unspecified (principal); M81.0 Age-related osteoporosis without current pathological fracture; E78.00 Pure hypercholesterolemia, unspecified; I10 Essential (primary) hypertension; M34.9 Systemic sclerosis, unspecified; Z79.52 Long term (current) use of systemic steroids; Z79.899 Other long term (current) drug therapy; Z96.652 Presence of left artificial knee joint; Z96.651 Presence of right artificial knee joint
CPT/HCPCS: 36415; 84550

== ENCOUNTER → 2021-07-14 11:08 | Outpatient (POV) | payer MEDICARE, BC, SELFPAY | PROVIDERS: Visit Provider Dermatology | DX: Z00.00 Encounter for general adult medical examination without abnormal findings (principal) ==

== ENCOUNTER → 2021-08-11 15:23 | Outpatient (POV) | payer MEDICARE, BC, SELFPAY | PROVIDERS: Visit Provider Dermatology | DX: Z00.00 Encounter for general adult medical examination without abnormal findings (principal) ==

== ENCOUNTER → 2021-08-17 09:05 | Outpatient (CLI) | payer MEDICARE, SELFPAY ==
[2021-08-17 10:16] LABS: Alanine Aminotransferase 17 U/L (12-78); Albumin Level 3.8 g/dl (3.5-5.0); Albumin/Globulin Ratio 1.6 (1.1-1.8); Alkaline Phosphatase 140 U/L (38-126); Anion Gap 10.2 mEq/L (5-15); Aspartate Amino Transferase 26 U/L (14-36); Bilirubin,Total 0.4 mg/dl (0.2-1.3); Blood Urea Nitrogen 24 mg/dl (7-17); Calcium 8.9 mg/dl (8.4-10.2); Carbon Dioxide 26 mmol/L (22.0-30.0); Chloride 103 mmol/L (98-107); Chol/HDL Ratio 2.1 (1-3.5); Cholesterol 158 mg/dl (140-200); Estimated Glomerular Filt Rate 102 ml/min (>60); GFR (African American) 123 ML/MIN (>60); Globulin 2.4 g/dL (1.3-3.2); Glucose 83 mg/dl (74-100); HDL Cholesterol 74 mg/dl (40-60); Potassium 4.2 mmoL/L (3.5-5.1); Sodium 135 mmol/L (136-145); Total Protein,Serum 6.2 g/dl (6.3-8.2); Triglycerides 82 mg/dl (30-150); VLDL Cholesterol 16 mg/dL (0-40)
[2021-08-17 10:27] LABS: Direct LDL Cholesterol 64.43 mg/dL (100-129)
[2021-08-17 10:46] LABS: Thyroid Stimulating Hormone 1.24 uIU/mL (0.465-4.68)
[2021-08-17 11:30] LABS: Creatinine,Urine Random 53 mg/dL (Not Estab.)
[2021-08-17 11:50] LABS: Microalbumin < 6.000 mg/L (0-16.7)
== END ==
PROVIDERS: Visit Provider Family Medicine
DX: I10 Essential (primary) hypertension (principal); E78.5 Hyperlipidemia, unspecified
CPT/HCPCS: 36415; 80053; 80061; 82043; 82570; 84443

== ENCOUNTER → 2021-08-25 13:23 | Outpatient (POV) | payer MEDICARE, BC, OTHER, SELFPAY | PROVIDERS: Visit Provider Dermatology | DX: Z00.00 Encounter for general adult medical examination without abnormal findings (principal) ==

== ENCOUNTER → 2021-10-02 10:36 | Outpatient (CLI) | payer MEDICARE, SELFPAY ==
[2021-10-02 13:15] LABS: Adenovirus,PCR Not Detected (NotDetected); Bordetella Pertussis Not Detected (NotDetected); Chlamydophila Pneumoniae, PCR Not Detected (NotDetected); Coronavirus 229E Not Detected (NotDetected); Coronavirus NL63 Not Detected (NotDetected); Coronavirus OC43 Not Detected (NotDetected); Coronovirus HKU1,PCR Not Detected (NotDetected); Human Metapneumovirus Not Detected (NotDetected); Influenza A, PCR Not Detected (NotDetected); Influenza AH1, 2009 Not Detected (NotDetected); Influenza AH1, PCR Not Detected (NotDetected); Influenza AH3,PCR Not Detected (NotDetected); Influenza B, PCR Not Detected (NotDetected); Mycoplasma Pneumoniae, PCR Not Detected (NotDetected); Parainfluenza 1, PCR Not Detected (NotDetected); Parainfluenza 2, PCR Not Detected (NotDetected); Parainfluenza 3, PCR Not Detected (NotDetected); Parainfluenza 4, PCR Not Detected (NotDetected); Respiratory Syncytial Virus Not Detected (NotDetected); Rhinovirus/Enterovirus Not Detected (NotDetected)
[2021-10-02 13:23] LABS: Basophils # 0.1 K/mm3 (0-0.2); Basophils % 0.6 % (0.1-2.0); Eosinophils # 0.1 K/mm3 (0.0-0.4); Eosinophils % 0.5 % (0.1-12.0); Hematocrit 42.8 % (37.0-47.0); Hemoglobin 13.5 g/dL (12.2-16.2); Lymphocytes # 1.3 K/mm3 (0.7-4.5); Mean Corpuscular HGB Conc 31.5 g/dL (31.8-35.4); Mean Corpuscular Hemoglobin 33.9 pg (27.0-31.2); Mean Corpuscular Volume 107.9 fl (81-99); Mean Platelet Volume 10.1 fl (7.4-10.4); Monocytes # 0.9 K/mm3 (0.1-1.0); Monocytes % 8.4 % (1.7-9.3); Neutrophils # 8.3 K/mm3 (1.8-7.8); Neutrophils % 78.5 % (37.0-80.0); Platelet Count 313 K/mm3 (142-424); Red Blood Count 3.97 M/mm3 (4.20-5.40); Red Cell Distribution Width 16.3 % (11.5-17.5); White Blood Count 10.5 K/mm3 (4.8-10.8)
[2021-10-02 14:45] LABS: Coronavirus 19, PCR Detected (NotDetected)
== END ==
PROVIDERS: PCP Family Medicine; Visit Provider Family Medicine
DX: U07.1 COVID-19 (principal)
CPT/HCPCS: 36415; 85025; 87581; 87632; 87798; C9803; U0003; U0005

== ENCOUNTER → 2021-11-29 11:01 | Outpatient (CLI) | payer MEDICARE, SELFPAY | PROVIDERS: Visit Provider Nurse Practitioner | DX: Z20.822 Contact with and (suspected) exposure to COVID-19 (principal) | CPT/HCPCS: C9803; U0003; U0005 ==

== ENCOUNTER → 2021-12-17 12:26 | Outpatient (CLI) | payer MEDICARE, SELFPAY ==
--- NOTE | 2021-12-17 12:29 | CT_ITS ---
FINAL REPORT TECHNIQUE: Axial images were obtained from the lung apex to the mid abdomen by computed tomography. Coronal reformatted images were obtained. This study was performed with techniques to keep radiation doses as low as reasonably achievable, (ALARA). Individualized dose reduction techniques using automated exposure control or adjustment of mA and/or kV according to the patient''s size were employed. CLINICAL HISTORY: HTN,ELEVATED WBC,M[employer] THERAPY-- scleroderma FINDINGS: There is no axillary adenopathy. There is no hilar or mediastinal adenopathy. Heart size is normal. There is a right-sided aortic arch as a variant. There are moderate coronary artery calcifications. There is no pericardial or pleural effusion. Limited images of the upper abdomen demonstrate postoperative changes from cholecystectomy. There is mild scarring. There is mild to moderate peripheral interstitial fibrosis which is worse in the lung bases. There is mild honeycombing in the bases, right greater than left. There are multiple right chronic rib fractures. There is mild degenerative change in the shoulders. IMPRESSION: Mild to moderate peripheral interstitial fibrosis worse in the lung bases. Honeycombing in the lung bases, right greater the left. Reviewed, Interpreted and Dictated by Federico Coello III, MD Transcribed by Jennifer Castellon Authenticated by Federico Coello III, MD on 12/17/2021 02:06:10 PM [facility]
== END ==
PROVIDERS: PCP Family Medicine; Visit Provider Internal Medicine Rheumatology
DX: M34.9 Systemic sclerosis, unspecified (principal); M35.1 Other overlap syndromes; I10 Essential (primary) hypertension; E78.00 Pure hypercholesterolemia, unspecified; M43.26 Fusion of spine, lumbar region; D72.829 Elevated white blood cell count, unspecified; M81.0 Age-related osteoporosis without current pathological fracture; Z79.52 Long term (current) use of systemic steroids; Z79.899 Other long term (current) drug therapy
CPT/HCPCS: 71250; 93306

== ENCOUNTER → 2022-02-10 15:55 | Outpatient (CLI) | payer MEDICARE, SELFPAY ==
[2022-02-10 16:01] LABS: Adenovirus F 40/41, stool Not Detected (NotDetected); Campylobacter Not Detected (NotDetected); Clostridium Difficile A/B, PCR Not Detected (NotDetected); Cryptosporidium Not Detected (NotDetected); Cyclospora Cayetanesis Not Detected (NotDetected); Entamoeba histolytica Not Detected (NotDetected); Enteroaggregative E coli Not Detected (NotDetected); Enteropathogenic E coli Not Detected (NotDetected); Enterotoxigenic E coli Not Detected (NotDetected); Giardia lamblia Not Detected (NotDetected); Norovirus Not Detected (NotDetected); Plesimonas Shigalloides, PCR Not Detected (NotDetected); Rotavirus A Not Detected (NotDetected); Salmonella, PCR Not Detected (NotDetected); Sapovirus Not Detected (NotDetected); Shiga-like toxin E coli Not Detected (NotDetected); Shigella Enterovasive E coli Not Detected (NotDetected); Vibrio Cholerae Not Detected (NotDetected); Vibrio, PCR Not Detected (NotDetected); Yersinia Entercolitica, PCR Not Detected (NotDetected)
[2022-02-10 21:38] LABS: Astrovirus Detected (NotDetected)
== END ==
PROVIDERS: PCP Family Medicine; Visit Provider Nurse Practitioner
DX: A08.32 Astrovirus enteritis; R19.7 Diarrhea, unspecified; M34.9 Systemic sclerosis, unspecified; Z79.52 Long term (current) use of systemic steroids
CPT/HCPCS: 87507

== ENCOUNTER → 2022-02-16 10:47 | Outpatient (CLI) | payer MEDICARE, SELFPAY ==
--- NOTE | 2022-02-16 10:52 | XR_ITS ---
FINAL REPORT CLINICAL HISTORY: OSTEOPENIA, BACK PAIN FINDINGS: THORACIC SPINE SERIES. Three views were obtained. There is severe diffuse thoracic kyphosis. There is mild chronic wedging of T12. There is no acute fracture. There are moderate degenerative changes. There is no malalignment. There are multiple chronic bilateral rib fractures. IMPRESSION: Moderate degenerative change with severe diffuse thoracic kyphosis. Mild chronic wedging of T12. Reviewed, Interpreted and Dictated by Federico Coello III, MD Transcribed by Sean Dias Authenticated by Federico Coello III, MD on 02/16/2022 01:21:46 PM [facility]
--- NOTE | 2022-02-16 10:52 | XR_ITS ---
FINAL REPORT CLINICAL HISTORY: LOW BACK PAIN, OSTEOPENIA FINDINGS: Lumbar spine Five views were obtained. There is mild chronic wedging of T12. There is no acute fracture. Alignment is normal. There is mild rightward curvature. There are mild degenerative changes. Vascular calcifications are present. IMPRESSION: Mild degenerative change. Reviewed, Interpreted and Dictated by Federico Coello III, MD Transcribed by Sean Dias Authenticated by Federico Coello III, MD on 02/16/2022 01:21:29 PM [facility]
== END ==
PROVIDERS: PCP Family Medicine; Visit Provider Internal Medicine Rheumatology
DX: M34.9 Systemic sclerosis, unspecified (principal); M35.1 Other overlap syndromes; M85.80 Other specified disorders of bone density and structure, unspecified site; J84.9 Interstitial pulmonary disease, unspecified; Z78.0 Asymptomatic menopausal state; Z79.899 Other long term (current) drug therapy; Z79.52 Long term (current) use of systemic steroids
CPT/HCPCS: 72072; 72110

== ENCOUNTER → 2022-04-30 11:12 | Outpatient (CLI) | payer MEDICARE, SELFPAY ==
--- NOTE | 2022-04-30 11:12 | MM_ITS ---
PROCEDURE INFORMATION: Exam: MG Bilateral Screening 3D Mammography Exam date and time: 04/30/2022 11:08 AM Age: 61 years old Clinical indication: Screening examination TECHNIQUE: Imaging protocol: Bilateral Screening tomosynthesis and 2D mammography including computer-aided detection (CAD) when performed. COMPARISON: 1. MG MM DIG SCREENING MAMM BI W/CAD 04/27/2021 10:03 AM 2. MG MM DIG SCREENING MAMM BI W/CAD 04/16/2020 9:33 AM FINDINGS: MAMMOGRAPHY: Breast composition: There are scattered areas of fibroglandular density. Mass: None. Architectural distortion: None. Calcifications: No suspicious calcifications. Asymmetric density: None. Skin thickening: None. Axillary adenopathy: None. IMPRESSION: No mammographic evidence of malignancy. Annual screening is recommended unless otherwise clinically indicated. ASSESSMENT: BI-RADS Category 1: Negative
== END ==
PROVIDERS: PCP Family Medicine; Visit Provider Family Medicine
DX: Z12.31 Encounter for screening mammogram for malignant neoplasm of breast (principal)
CPT/HCPCS: 77063; 77067

== ENCOUNTER → 2022-05-13 13:35 | Outpatient (CLI) | payer MEDICARE, SELFPAY ==
[2022-05-13 14:53] LABS: Basophils # 0.1 K/mm3 (0-0.2); Basophils % 1.1 % (0.1-2.0); Eosinophils % 0.2 % (0.1-12.0); Hematocrit 42.1 % (37.0-47.0); Hemoglobin 12.8 g/dL (12.2-16.2); Lymphocytes # 0.7 K/mm3 (0.7-4.5); Lymphocytes % 5.2 % (10-50); Mean Corpuscular HGB Conc 30.3 g/dL (31.8-35.4); Mean Corpuscular Volume 105.3 fl (81-99); Mean Platelet Volume 9.8 fl (7.4-10.4); Monocytes # 0.6 K/mm3 (0.1-1.0); Monocytes % 4.1 % (1.7-9.3); Neutrophils # 11.9 K/mm3 (1.8-7.8); Neutrophils % 89.3 % (37.0-80.0); Platelet Count 409 K/mm3 (142-424); Red Cell Distribution Width 18.1 % (11.5-17.5); White Blood Count 13.3 K/mm3 (4.8-10.8)
[2022-05-13 14:54] LABS: MANUAL DIFFERENTIAL MANUAL DIFFERENTIAL (MANUAL DIFF)
[2022-05-13 15:36] LABS: Lymphocytes % 8 % (10-50); Monocytes % 3 % (2-9); Neutrophils % 89 % (42-76); Total Cells Counted 100
[2022-05-13 15:37] LABS: Anisocytosis 2+; Macrocytosis 1+; Platelet Estimate Normal
[2022-05-13 16:16] LABS: Vitamin B12 759 pg/mL (239-931)
[2022-05-15 13:52] LABS: Peripheral Smear Review Scanned Result
== END ==
PROVIDERS: PCP Family Medicine; Visit Provider Internal Medicine Medical Oncology
DX: D72.829 Elevated white blood cell count, unspecified (principal)
CPT/HCPCS: 36415; 82607; 85007; 85025

== ENCOUNTER → 2022-05-20 09:07 | Outpatient (CLI) | payer MEDICARE, SELFPAY ==
--- NOTE | 2022-05-20 09:12 | XR_ITS ---
FINAL REPORT TECHNIQUE: Bone mineral density was calculated of the lumbar spine. CLINICAL HISTORY: osteoporosis, carlos. hip replacements and carlos fx wrist could only image spine FINDINGS: DEXA BONE DENSITY AXIAL SKELETON Using L1-4, the bone mineral density of the spine is 1.207 g/cm2, corresponding to T-score of 1.5. Hips were not evaluated due to bilateral joint replacements. Forearms were not evaluated due to fractures bilaterally NOTE: T-score: Standard deviation compared with peak bone mass of young adult mean. *Following the recommendations of the International Society of Bone densitometry, classification of hip BMD is based on the lower of two T-scores; total hip or femoral neck. IMPRESSION: Normal bone mineral density of the lumbar spine . Note that these values may be falsely elevated secondary to hypertrophic change. Reviewed, Interpreted and Dictated by Federico Coello III, MD Transcribed by Jennifer Castellon Authenticated and [facility]
== END ==
PROVIDERS: PCP Family Medicine; Visit Provider Internal Medicine Pulmonary Disease
DX: Z78.0 Asymptomatic menopausal state (principal)
CPT/HCPCS: 77080; 94060; 94726; 94729

== ENCOUNTER 2022-05-21 08:59 | Emergency (ER) | payer MEDICARE, SELFPAY ==
[2022-05-21] VITALS (8 sets, daily range): BP systolic 103–138; BP diastolic 73–91; PULSE 79–97; RESP 16–17; TEMP 36.7–36.8; O2SAT 95–99; BMI 29.5
--- NOTE | 2022-05-21 09:05 | PC.NURSE ---
pt to restroom via wc to try and leave a urine sample; assisted by family
--- NOTE | 2022-05-21 09:09 | PC.NURSE ---
ER at for patient eval; pt hooked to monitor
[2022-05-21 09:14] LABS: Microscopic, Urine URINE MICROSCOPIC (MICROSCOPIC)
--- NOTE | 2022-05-21 09:14 | CT_ITS ---
FINAL REPORT TECHNIQUE: Pre-and postcontrast images of the abdomen were performed by computed tomography. Extensive 3-D reconstruction images were performed. A CTA was performed. This study was performed with techniques to keep radiation doses as low as reasonably achievable (ALARA). Individualized dose reduction techniques using automated exposure control or adjustment of mA and/or kV according to the patient''s size were employed. CLINICAL HISTORY: Midline abd pain radiating to back FINDINGS: ABDOMEN AND PELVIS: The lung bases are clear. Precontrast images demonstrate no evidence of nephrolithiasis. No adrenal masses are identified. Patient is status post cholecystectomy. A small cyst is seen in the right kidney. There is a mass in the lateral left kidney measuring 22 mm, which does not represent a simple cyst. Favor complex cyst. There is mild left renal scarring. There is mild stranding adjacent to the pancreatic body with mildly heterogeneous enhancement, of uncertain significance. Findings may represent pancreatitis. The liver and spleen are without acute abnormality. The appendix is normal. There is sigmoid diverticulosis without evidence of diverticulitis. Postoperative changes are seen of the hips bilaterally resulting in streak artifact. CTA: There are moderate vascular calcifications of the abdominal aorta. There is no aneurysm or dissection. No stenosis is seen in the proximal celiac axis or SMA. There is no evidence of renal artery stenosis. The KORIN is patent. No stenosis is seen of the the common iliac or external iliacs. Internal iliacs are patent. IMPRESSION: No evidence of renal vascular hypertension or significant renal artery stenosis. Mild stranding adjacent to the pancreatic body with mildly heterogeneous enhancement which could represent pancreatitis. Left renal mass, not a simple cyst. Favor complex cyst. Recommend renal mass protocol CT for further evaluation. Reviewed, Interpreted and Dictated by Federico Coelol III, MD Transcribed by Mirian Gandhi Authenticated and [facility]
[2022-05-21 09:15] LABS: Appearance,Urine CLEAR (Clear); Bilirubin,Urine Negative (Negative); Blood, Urine Negative (Negative); Color,Urine YELLOW (Yellow); Glucose,Urine (UA) Negative (Negative); Ketones,Urine Negative (Negative); Leukocyte Esterase,Urine Negative (Negative); Nitrate,Urine Negative (Negative); PH,Urine 6.5 (5.0-8.5); Protein,Urine Negative (Negative)
--- NOTE | 2022-05-21 09:16 | HMH.EDGENADL ---
ED Disposition Clinical Impression: Pancreatitis, Renal mass Disposition: Home, Self-Care Condition on Discharge: Good Additional Instructions: At this time was felt you are safe to be discharged from the emergency department. If new or worsening symptoms please do not hesitate to return. Please follow-up with your doctor in the coming days for evaluation of your pancreatitis as well as your left renal mass. Prescriptions: Ondansetron [Zofran 4mg ODT] 4 mg PO Q6H PRN #8 tab PRN Reason: Nausea Transmission Status: Pending to [facility] (Now [facility]) Referrals: Sandoval Tuttle MD [Primary Care Provider] - - Critical Care Critical Care Time: No Attestation: On , the high probability of a clinically significant, sudden or life threatening deterioration of the following system(s) required my full and direct attention, intervention and personal management. The time I documented below is in addition to time spent performing reported procedures but includes the following listed in this critical care notation. Medical Decision Making - Eduardo Inquiry Pt receiving controlled substance: No Vital Signs: 05/21/22 09:12 05/21/22 09:14 05/21/22 09:30 Temperature 98.3 F Temperature Source Oral Pulse Rate 97 H 82 Pulse Rate [Left Radial] 90 Respiratory Rate 17 Blood Pressure 120/91 H 123/84 Blood Pressure [Right Arm] 120/91 H Blood Pressure Mean 100 104 Blood Pressure Mean [Right Arm] 100 02 Sat by Pulse Oximetry 99 95 95 Oxygen Delivery Method Room Air 05/21/22 10:00 Temperature Temperature Source Pulse Rate 80 Pulse Rate [Left Radial] Respiratory Rate Blood Pressure 126/87 Blood Pressure [Right Arm] Blood Pressure Mean 100 Blood Pressure Mean [Right Arm] 02 Sat by Pulse Oximetry 97 Oxygen Delivery Method Room Air - Lab Data Lab Results 05/21/22 09:07: Urine Color Yellow, Urine Appearance Clear, Urine pH 6.5, Ur Specific [place] 1.010, Urine Protein Negative, Urine Glucose (UA) Negative, Urine Ketones Negative, Urine Blood Negative, Urine Nitrate Negative, Urine Bilirubin Negative, Urine Urobilinogen 1.0, Ur Leukocyte Esterase Negative, Urine RBC None, Urine WBC Occasional, Ur Squamous Epith Cells None, Urine Bacteria Trace 05/21/22 09:36: WBC 8.3, RBC 3.96 L, Hgb 12.7, Hct 42.1, MCV 106.3 H, MCH 32.2 H, MCHC 30.3 L, RDW 18.3 H, Plt Count 381, MPV 9.3, Neut % (Auto) 73.9, Lymph % (Auto) 15.8, [place] % (Auto) 6.6, Eos % (Auto) 2.4, Baso % (Auto) 1.3, Neut # (Auto) 6.1, Lymph # (Auto) 1.3, [place] # (Auto) 0.6, Eos # (Auto) 0.2, Baso # (Auto) 0.1 05/21/22 09:36: Sodium 137, Potassium 4.0, Chloride 101, Carbon Dioxide 31 H, Anion Gap 9.0, BUN 17, Creatinine 0.70, Estimated Creat Clear 73, Estimated GFR 85, Est GFR ( Amer) 103, Glucose 99, Calcium 9.1, Total Bilirubin 0.3, AST 35, ALT 27, Alkaline Phosphatase 119, Troponin I < 0.01, Total Protein 7.1, Albumin 3.9, Globulin 3.2, Albumin/Globulin Ratio 1.2, Lipase 464 H 05/21/22 09:36: Lactate 1.3 Result diagrams: 05/21/22 09:36 05/21/22 09:36 Orders (Tests/Meds): ED MEDICATIONS Discontinued Medications Generic Name Dose Route Start Last Admin Trade Name Julio Cesarq PRN Reason Stop Dose Admin Acetaminophen 1,000 mg 05/21/22 09:14 05/21/22 09:19 Acetaminophen 500mg Tab PO 05/21/22 09:15 1,000 mg ONCE ONE Administration Belladonna Alkaloids 60 ml 05/21/22 09:14 05/21/22 09:20 Gi Cocktail 60ml Udc PO 05/21/22 09:15 60 ml ONCE ONE Administration Iopamidol 100 ml 05/21/22 11:30 05/21/22 11:30 Iopamidol-370 (76%);100ml Bottle IV 05/21/22 11:31 100 ml ONCE ONE Administration Ondansetron HCl 4 mg 05/21/22 09:14 05/21/22 09:19 Ondansetron 4mg/2ml Vial IV 05/21/22 09:15 4 mg ONCE ONE Administration Sodium Chloride 10 ml 05/21/22 11:30 05/21/22 11:30 Sodium Chloride 0.9% 10ml Syr (Rad Only) IV 05/21/22 11:31 10 ml ONCE ONE Administration
--- NOTE | 2022-05-21 09:21 | PC.NURSE ---
Maritza RN at BS to start IV, collect blood, EKG and give medications. Family at BS
[2022-05-21 09:30] LABS: WBC,Urine Occasional #/hpf (0-3)
[2022-05-21 09:31] LABS: Bacteria,Urine Trace /lpf
--- NOTE | 2022-05-21 09:34 | ECG_ITS ---
APPROVED REPORT Exam: Resting ECG HR:86 bpm ECG Measurements Heart Rate 86 AXES NM 183 P 49 QRSd 124 QRS 116 QT 362 T 15 QTc 405 Conclusion SINUS RHYTHM RIGHT AXIS DEVIATION [QRS AXIS > 100] RIGHT BUNDLE BRANCH BLOCK [120+ ms QRS DURATION, UPRIGHT V1, 40+ ms S IN I/aVL/V4/V5/V6] ABNORMAL ECG UNCONFIRMED REPORT Electronically signed by : Osmany Zuniga MD 05/21/2022 21:40:17
--- NOTE | 2022-05-21 09:43 | PC.NURSE ---
pt medicated per DEC. IV established, blood sent to the lab and ekg obtained. pt resting in bed with no needs voiced. at the bedside. pt updated on POC.
[2022-05-21 09:51] LABS: Basophils # 0.1 K/mm3 (0-0.2); Basophils % 1.3 % (0.1-2.0); Eosinophils # 0.2 K/mm3 (0.0-0.4); Eosinophils % 2.4 % (0.1-12.0); Hematocrit 42.1 % (37.0-47.0); Hemoglobin 12.7 g/dL (12.2-16.2); Lymphocytes # 1.3 K/mm3 (0.7-4.5); Lymphocytes % 15.8 % (10-50); Mean Corpuscular HGB Conc 30.3 g/dL (31.8-35.4); Mean Corpuscular Hemoglobin 32.2 pg (27.0-31.2); Mean Corpuscular Volume 106.3 fl (81-99); Mean Platelet Volume 9.3 fl (7.4-10.4); Monocytes # 0.6 K/mm3 (0.1-1.0); Monocytes % 6.6 % (1.7-9.3); Neutrophils # 6.1 K/mm3 (1.8-7.8); Neutrophils % 73.9 % (37.0-80.0); Platelet Count 381 K/mm3 (142-424); Red Blood Count 3.96 M/mm3 (4.20-5.40); Red Cell Distribution Width 18.3 % (11.5-17.5); White Blood Count 8.3 K/mm3 (4.8-10.8)
[2022-05-21 09:53] LABS: Lactic Acid 1.3 mmol/L (0.7-2.1)
[2022-05-21 09:54] LABS: Alanine Aminotransferase 27 U/L (12-78); Albumin Level 3.9 g/dl (3.5-5.0); Albumin/Globulin Ratio 1.2 (1.1-1.8); Alkaline Phosphatase 119 U/L (38-126); Aspartate Amino Transferase 35 U/L (14-36); Bilirubin,Total 0.3 mg/dl (0.2-1.3); Blood Urea Nitrogen 17 mg/dl (7-17); Calcium 9.1 mg/dl (8.4-10.2); Carbon Dioxide 31 mmol/L (22.0-30.0); Chloride 101 mmol/L (98-107); Creatinine Clearance Estimated 73 mL/min (50-200); Estimated Glomerular Filt Rate 85 ml/min (>60); GFR (African American) 103 ML/MIN (>60); Globulin 3.2 g/dL (1.3-3.2); Glucose 99 mg/dl (74-100); Lipase 464 U/L (23-300); Sodium 137 mmol/L (136-145); Total Protein,Serum 7.1 g/dl (6.3-8.2)
[2022-05-21 10:08] LABS: Troponin I < 0.01 ng/ml (0.00-0.034)
--- NOTE | 2022-05-21 10:11 | PC.NURSE ---
pt's notified staff he was stepping out of the department for a few minutes. pt resting in bed at this time. no needs voiced
--- NOTE | 2022-05-21 10:15 | PC.NURSE ---
called radiology for CT abd. renal function WNL
--- NOTE | 2022-05-21 10:15 | PC.NURSE ---
back to the bedside. MD at the bedside to speak with pt for update
--- NOTE | 2022-05-21 10:25 | PC.NURSE ---
pt to ct via wheelchair at this time
--- NOTE | 2022-05-21 10:38 | HMH.ITSTN ---
couldnt use iv that nurse started , pt stated it hurt to bad when flushing with saline , took back to room they will attempt and iv with ultrasound
--- NOTE | 2022-05-21 10:42 | PC.NURSE ---
CT notified staff that IV was hurting pt when flushed. pt back to room at this time and MD is at the bedside establishing another IV via u/s.
--- NOTE | 2022-05-21 11:10 | PC.NURSE ---
Notified Marimar in radiology that patient had a good IV placed and was ready to go back to CT
--- NOTE | 2022-05-21 11:16 | PC.NURSE ---
pt to CT at this time via wheelchair
--- NOTE | 2022-05-21 11:29 | PC.NURSE ---
pt return from CT
--- NOTE | 2022-05-21 11:39 | PC.NURSE ---
rounded on pt at this time, pt given additional warm blanket. Hooked call light to pt bedside, oriented pt to call light. Pt has visitor at BS. Pt states no other needs at this time, will continue to monitor.
--- NOTE | 2022-05-21 12:27 | PC.NURSE ---
pt provided with leo ceballos and dylon santos for PO challenge per MD request
--- NOTE | 2022-05-21 12:38 | PC.NURSE ---
at the bedside reviewing CT with pt
== END 2022-05-21 13:08 | disposition home or self-care (01) ==
PROVIDERS: Emergency Provider Emergency Medicine; PCP Family Medicine
DX: N28.9 Disorder of kidney and ureter, unspecified (principal); K85.90 Acute pancreatitis without necrosis or infection, unspecified; M54.9 Dorsalgia, unspecified; E78.41 Elevated Lipoprotein(a); Z86.16 Personal history of COVID-19; I10 Essential (primary) hypertension; K21.9 Gastro-esophageal reflux disease without esophagitis; E78.5 Hyperlipidemia, unspecified; M06.9 Rheumatoid arthritis, unspecified; M34.81 Systemic sclerosis with lung involvement; J84.10 Pulmonary fibrosis, unspecified; J45.909 Unspecified asthma, uncomplicated; Z79.51 Long term (current) use of inhaled steroids; Z79.52 Long term (current) use of systemic steroids; Z79.899 Other long term (current) drug therapy; Z88.0 Allergy status to penicillin; Z96.641 Presence of right artificial hip joint; Z96.631 Presence of right artificial wrist joint; Z96.651 Presence of right artificial knee joint; Z82.49 Family history of ischemic heart disease and other diseases of the circulatory system; Z80.3 Family history of malignant neoplasm of breast
CPT/HCPCS: 74174; 80053; 81001; 83605; 83690; 84484; 85025; 87086; 93005; 96374; 99285; J2405; Q9967

== ENCOUNTER → 2022-06-03 10:02 | Outpatient (CLI) | payer MEDICARE, SELFPAY ==
--- NOTE | 2022-06-03 10:09 | XR_ITS ---
FINAL REPORT CLINICAL HISTORY: cough COVID OUT PATIENT FINDINGS: A portable view of the chest was obtained. Comparison is made to a prior exam dated June 09, 2020. Cardiac silhouette is enlarged but stable. The mediastinum is prominent but stable. There are bibasilar opacities, slightly asymmetric to the left, and could be related to atelectasis or pneumonia. Pleural effusions are not excluded. There is no pneumothorax. IMPRESSION: Bibasilar opacities, slightly asymmetric to the left. Recommend upright PA and lateral radiographs when patient is able to tolerate. Reviewed, Interpreted and Dictated by Keri Schofield MD Transcribed by Nuha Sy Authenticated and [facility]
[2022-06-03 11:23] LABS: Basophils # 0.1 K/mm3 (0-0.2); Basophils % 0.5 % (0.1-2.0); Eosinophils # 0.2 K/mm3 (0.0-0.4); Eosinophils % 1.4 % (0.1-12.0); Hematocrit 35.7 % (37.0-47.0); Hemoglobin 11.2 g/dL (12.2-16.2); Lymphocytes % 8.3 % (10-50); Mean Corpuscular HGB Conc 31.3 g/dL (31.8-35.4); Mean Corpuscular Hemoglobin 32.3 pg (27.0-31.2); Mean Corpuscular Volume 103.2 fl (81-99); Mean Platelet Volume 8.9 fl (7.4-10.4); Monocytes # 1.7 K/mm3 (0.1-1.0); Monocytes % 13.8 % (1.7-9.3); Neutrophils # 9.2 K/mm3 (1.8-7.8); Neutrophils % 76.1 % (37.0-80.0); Platelet Count 465 K/mm3 (142-424); Red Blood Count 3.46 M/mm3 (4.20-5.40); White Blood Count 12.1 K/mm3 (4.8-10.8)
== END ==
PROVIDERS: PCP Family Medicine; Visit Provider Family Medicine
DX: R05.9 Cough, unspecified (principal); Z20.822 Contact with and (suspected) exposure to COVID-19
CPT/HCPCS: 36415; 71045; 85025; C9803; U0003; U0005

== ENCOUNTER 2022-06-03 15:39 | Inpatient (IN) | payer MEDICARE, SELFPAY ==
[2022-06-03] VITALS (14 sets, daily range): BP systolic 106–146; BP diastolic 60–69; PULSE 78–114; RESP 12–22; TEMP 36.8–36.9; O2SAT 93–95; BMI 29.5; BMI 30.1
--- NOTE | 2022-06-03 16:03 | ECG_ITS ---
APPROVED REPORT Exam: Resting ECG HR:99 bpm ECG Measurements Heart Rate 99 AXES KS 156 P 50 QRSd 121 QRS 155 QT 356 T 39 QTc 413 Conclusion SINUS RHYTHM RIGHT AXIS DEVIATION [QRS AXIS > 100] RIGHT BUNDLE BRANCH BLOCK [120+ ms QRS DURATION, UPRIGHT V1, 40+ ms S IN I/aVL/V4/V5/V6] ABNORMAL ECG UNCONFIRMED REPORT Electronically signed by : Osmany Zuniga MD 06/05/2022 08:06:03
--- NOTE | 2022-06-03 16:08 | XR_ITS ---
FINAL REPORT CLINICAL HISTORY: sob COMPARISON: 06/03/2022 FINDINGS: SINGLE-VIEW CHEST The heart size is normal. The mediastinum is normal. The patient is rotated to the right. The lungs are underinflated. There is deformity of the right and left chest valderrama consistent with old fractures. There is pleural thickening at the periphery of the right hemithorax and scarring at the lung bases. There is no pneumothorax. IMPRESSION: Chronic appearing findings without acute cardiopulmonary process. Reviewed, Interpreted and Dictated by Adryan Oropeza MD Transcribed by Carolina Nicholson Authenticated and [facility]
[2022-06-03 16:24] LABS: Basophils # 0.1 K/mm3 (0-0.2); Basophils % 0.4 % (0.1-2.0); Eosinophils % 0.3 % (0.1-12.0); Hematocrit 37.6 % (37.0-47.0); Hemoglobin 11.7 g/dL (12.2-16.2); Lymphocytes # 0.8 K/mm3 (0.7-4.5); Lymphocytes % 5.4 % (10-50); Mean Corpuscular Hemoglobin 32.3 pg (27.0-31.2); Mean Corpuscular Volume 103.9 fl (81-99); Mean Platelet Volume 8.6 fl (7.4-10.4); Monocytes % 6.9 % (1.7-9.3); Neutrophils # 12.2 K/mm3 (1.8-7.8); Platelet Count 492 K/mm3 (142-424); Red Blood Count 3.62 M/mm3 (4.20-5.40); Red Cell Distribution Width 18.8 % (11.5-17.5)
[2022-06-03 16:27] LABS: Lactic Acid 1.5 mmol/L (0.7-2.1)
[2022-06-03 16:28] LABS: Alanine Aminotransferase 23 U/L (12-78); Albumin Level 3.7 g/dl (3.5-5.0); Albumin/Globulin Ratio 1.2 (1.1-1.8); Alkaline Phosphatase 146 U/L (38-126); Anion Gap 9.5 mEq/L (5-15); Aspartate Amino Transferase 38 U/L (14-36); Bilirubin,Total 1.2 mg/dl (0.2-1.3); Blood Urea Nitrogen 9 mg/dl (7-17); Calcium 8.4 mg/dl (8.4-10.2); Carbon Dioxide 32 mmol/L (22.0-30.0); Chloride 90 mmol/L (98-107); Creatinine Clearance Estimated 73 mL/min (50-200); Estimated Glomerular Filt Rate 102 ml/min (>60); GFR (African American) 123 ML/MIN (>60); Glucose 143 mg/dl (74-100); Potassium 3.5 mmoL/L (3.5-5.1); Sodium 128 mmol/L (136-145); Total Protein,Serum 6.7 g/dl (6.3-8.2)
--- NOTE | 2022-06-03 16:35 | HMH.EDGENADL ---
Discharge Plan Disposition Patient Disposition: Admitted As Inpatient Condition: Good Chief Complaint: Shortness of Breath/Dyspnea Clinical Impressions Clinical Impression: Pneumonia Discharge ED Provider: Anabell Loo General Adult HPI General Chief complaint: Shortness of Breath/Dyspnea Stated complaint: Cough,SOA,Fever Time Seen by Provider: 06/03/22 16:22 Mode of Arrival: Wheelchair Source of Information: Patient Limitations: No Limitations Description of Symptoms (Recalled from ER Triage Doc. by RN): pt states she has had increased shortness of breath for a week and it has been progressively worse today, she has a productive cough and states she is coughing up yellow sputum, she had a low grade fever yesterday, she was seen on the by Dr. Tuttle for the same thing where she received a zpack and cough syrup, she received labs, covid test, and chest xray this morning outpatient History of Present Illness HPI narrative: This patient is a 61-year-old female with a history of scleroderma and pulmonary issues presented to the emergency department for evaluation of shortness of breath. She states that she has been sick for about a week and a half, and her cough has become much worse. She states she is coughing up a lot of yellow sputum. She also had a fever yesterday. She was seen on the by Dr. Tuttle for similar symptoms, and she was prescribed a Z-Juan and cough syrup. Her shortness of breath has continued to worsen. She denies any chest pain, abdominal pain, nausea, vomiting, changes in bowel movements, rashes, or swelling. Exertion makes her symptoms worse. Related Data Home Medications Medication Instructions Recorded Confirmed lisinopril 10 mg tablet 10 mg PO DAILY bp 08/26/20 06/03/22 metoclopramide HCl 10 mg tablet 10 mg PO DAILY bowels 08/26/20 06/03/22 montelukast 10 mg tablet 10 mg PO PM allergies 08/26/20 06/03/22 verapamil 80 mg tablet 80 mg PO DAILY bp 08/26/20 06/03/22 omeprazole 40 mg capsule,delayed 40 mg PO DAILY GERD 05/13/22 06/03/22 release famotidine 20 mg tablet 20 mg PO HS GERD 05/26/22 06/03/22 folic acid 1 mg tablet 3 mg PO DAILY Supplement 05/26/22 06/03/22 methotrexate sodium 2.5 mg tablet 2.5 mg PO DAILY Pain 05/26/22 06/03/22 prednisone 5 mg tablet 5 mg PO DAILY Cough/cold 05/26/22 06/03/22 ondansetron 4 mg disintegrating 4 mg PO NEEDED PRN Nausea 05/31/22 06/03/22 tablet albuterol sulfate 90 mcg/actuation 2 inh inhalation QID Asthma 06/03/22 06/03/22 breath activated powder inhaler azithromycin 250 mg tablet See Rx Instructions PO .COMPLEX 06/03/22 06/03/22 (Zithromax Z-Juan) Infection budesonide-formoterol HFA 80 1 inh inhalation BID Cough/cold 06/03/22 06/03/22 mcg-4.5 mcg/actuation aerosol inhaler (Symbicort) [id number] 1 cap PO TID malabsorption 06/03/22 06/03/22 36,000-114,000-180,000 unit capsule,delay rel (Creon) Previous Rx's Medication Instructions Recorded buspirone 10 mg tablet 10 mg PO BID Anxiety #90 tabs 04/23/22 atorvastatin 40 mg tablet 20 mg PO HS Cholesterol #90 tabs 05/10/22 furosemide 40 mg tablet 40 mg PO DAILY bp #90 tabs 05/10/22 promethazine-DM 6.25 mg-15 mg/5 mL 5 ml PO Q4-6H PRN cough #473 mL 05/26/22 oral syrup Allergies Allergy/AdvReac Type Severity Reaction Status Date / Time Penicillin Allergy Intermediate I-ITCHING Uncoded 05/31/22 10:37 PFSH PFS Social History Smoking Status: Never smoker alcohol intake: never substance use type: denies use current occupational status: disabled household members: spouse housing: house caffeine: Yes ROS Obtained: Yes All systems reviewed & no additional complaints except as documented 14 point review of systems obtained and negative except otherwise mentioned in HPI. Physical Exam General General appearance: alert and in no apparent distress Head Head exam: atraumatic and normocephali
[2022-06-03 16:38] LABS: MANUAL DIFFERENTIAL MANUAL DIFFERENTIAL (MANUAL DIFF)
[2022-06-03 17:16] LABS: NT Pro Brain Natriuretic Pep. 2310 pg/mL (0-125)
[2022-06-03 17:23] LABS: Troponin I 0.01 ng/ml (0.00-0.034)
--- NOTE | 2022-06-03 17:44 | PC.NURSE ---
Called lab about covid test pt said she had this morning to see if they could switch it to rapid. Cecilia in lab stated she would look and get that changed.
--- NOTE | 2022-06-03 17:45 | PC.NURSE ---
Assisted pt to restroom by wheelchair. When pt returned from restroom she was 88% on RA but quickly recovered to 94% on RA. MD rincon.
--- NOTE | 2022-06-03 17:47 | PC.NURSE ---
Lab called and said pt's covid swab will be back in 62 minutes. aware.
[2022-06-03 18:09] LABS: Lymphocytes % 6 % (10-50); Monocytes % 4 % (2-9); Neutrophils % 89 % (42-76); Total Cells Counted 100
--- NOTE | 2022-06-03 18:09 | PC.NURSE ---
Provided pt with a can of dylon mist. at bedside.
[2022-06-03 18:10] LABS: Macrocytosis 1+; Platelet Estimate Slight Increase
--- NOTE | 2022-06-03 18:23 | PC.NURSE ---
Dr. Loo speaking with Stroke attendee with at this time
--- NOTE | 2022-06-03 19:08 | PC.NURSE ---
Dr. Tuttle is being paged by roper operator for LEYDA STEWART
--- NOTE | 2022-06-03 20:16 | PC.NURSE ---
Report called to Sandy GOLDMAN.
--- NOTE | 2022-06-03 20:29 | PC.NURSE ---
PT ARRIVED TO FLOOR VIA W/C FROM ED W/STAFF @ 2027
[2022-06-03 20:50] LABS: Troponin I < 0.01 ng/ml (0.00-0.034)
[2022-06-03 23:32] LABS: Troponin I < 0.01 ng/ml (0.00-0.034)
[2022-06-04] VITALS (14 sets, daily range): BP systolic 106–138; BP diastolic 51–87; PULSE 78–120; RESP 18–27; TEMP 36.4–36.8; O2SAT 94–98; BMI 30.1
--- NOTE | 2022-06-04 00:10 | PC.NURSE ---
pt's oxygen saturation 87-88% on room air, applied 2LNC and pt's oxygen saturation increased to 92%
[2022-06-04 06:21] LABS: Chloride 95 mmol/L (98-107)
[2022-06-04 06:22] LABS: Potassium 3.8 mmoL/L (3.5-5.1); Sodium 132 mmol/L (136-145)
[2022-06-04 06:23] LABS: Basophils % 0.1 % (0.1-2.0); Eosinophils % 0.2 % (0.1-12.0); Hemoglobin 10.8 g/dL (12.2-16.2); Lymphocytes # 0.3 K/mm3 (0.7-4.5); Mean Corpuscular HGB Conc 30.9 g/dL (31.8-35.4); Mean Corpuscular Hemoglobin 31.9 pg (27.0-31.2); Mean Corpuscular Volume 103.2 fl (81-99); Monocytes # 0.2 K/mm3 (0.1-1.0); Neutrophils # 6.1 K/mm3 (1.8-7.8); Neutrophils % 91.7 % (37.0-80.0); Platelet Count 444 K/mm3 (142-424); Red Blood Count 3.39 M/mm3 (4.20-5.40); White Blood Count 6.7 K/mm3 (4.8-10.8)
[2022-06-04 06:25] LABS: Anion Gap 10.8 mEq/L (5-15); Carbon Dioxide 30 mmol/L (22.0-30.0)
--- NOTE | 2022-06-04 06:42 | PC.NURSE ---
pt rested well overnight, pt's VSS with HR mid-nineties to one-teens, occasional pvc's noted on tele monitor, pt on 2LNC to keep sats above 90%, pt with frequent non-productive cough, pt did not c/o any pain throughout shift, pt gets up to bsc to void with one assist and adequate UOP
[2022-06-04 06:54] LABS: MANUAL DIFFERENTIAL MANUAL DIFFERENTIAL (MANUAL DIFF)
[2022-06-04 07:18] LABS: Blood Urea Nitrogen 10 mg/dl (7-17); Calcium 8.3 mg/dl (8.4-10.2); Creatinine Clearance Estimated 75 mL/min (50-200); Estimated Glomerular Filt Rate 102 ml/min (>60); GFR (African American) 123 ML/MIN (>60); Glucose 154 mg/dl (74-100)
--- NOTE | 2022-06-04 07:36 | P.CONPHA_ITS ---
[facility] Pharmacy VTE Monitoring Patient Demographics Admission date: 06/03/22 Report Date: 06/04/22 Time: 07:36 Patient Allergies Penicillin Allergy (Intermediate, Uncoded 05/31/22 10:37) I-ITCHING Height: 1.63 m Weight: 79.946 kg Current Active Problems (Updated 06/03/22 @ 21:29 by Sandy Hernandez RN) Pneumonia (Acute) VTE Risk Labs: VTE Related Lab Results Hgb 10.8 g/dL (12.2-16.2) L 06/04/22 05:40 Hct 35.0 % (37.0-47.0) L 06/04/22 05:40 Plt Count 444 K/mm3 (142-424) H 06/04/22 05:40 BUN 10 mg/dl (7-17) 06/04/22 05:40 Creatinine 0.60 mg/dl (0.52-1.04) 06/04/22 05:40 Estimated Creat Clear 75 mL/min (50-200) 06/04/22 05:40 Prophylaxis VTE Prophylaxis Ordered?: Yes Types of VTE Prophylaxis: TEDS Knee High and Pharmacological Location of Applied Device: Bilateral Lower Extremeties Pharmacologic Type: Enoxaparin
[2022-06-04 07:51] LABS: Anisocytosis 1+; Lymphocytes % 4 % (10-50); Macrocytosis 1+; Monocytes % 4 % (2-9); Neutrophils % 92 % (42-76); Platelet Estimate Slight Increase; Total Cells Counted 100
--- NOTE | 2022-06-04 08:20 | EXP.HP ---
History of Present Illness *Admission Date: 06/03/22 *Reason for consult:: shortness of breath *History of present illness: Ms. Clark is a 61-year-old female with a history of Raynaud's, rheumatoid arthritis, and asthma. She states she has been sick for approximately a week and a half and has been to see Dr. Tuttle and was prescribed a Z-Juan and some cough syrup. States her shortness of breath and cough continued to worsen and she was coughing up yellow-brown sputum. She developed a low-grade fever as well. Her shortness of breath got so bad yesterday she was unable to walk across her home and presented to the emergency room for further evaluation and treatment. Patient's chest x-ray showed chronic findings without acute cardiopulmonary process. Her white blood cell count was elevated and she was placed on IV antibiotics and admitted. This a.m. she is feeling slightly better. [facility] Medical History (Updated 06/04/22 @ 14:30 by Sandoval Tuttle MD) Allergies Asthma Cataract GERD (gastroesophageal reflux disease) History of COVID-19 Hyperlipidemia Hypertension Rheumatoid arthritis Scleroderma Surgical History (Updated 06/04/22 @ 08:41 by DARIA Gomez) History of bilateral hip replacements History of cholecystectomy History of colonoscopy History of knee replacement History of wrist replacement Family History (Updated 06/04/22 @ 08:41 by DARIA Gomez) Breast cancer in female Hypertension Stroke Social History (Updated 06/03/22 @ 21:26 by Sandy Hernandez RN) Smoking Status: Never smoker alcohol intake: never substance use type: denies use current occupational status: disabled Travel in the last 8 weeks: None adopted: No household members: spouse housing: house caffeine: Yes Review of Systems Constitutional Constitutional: Reports chills, Reports fatigue, Reports fever(s) and Reports weakness Eyes Eyes: Denies blurry vision and Denies diplopia ENT Ears, Nose, Mouth, and Throat: Denies nasal congestion, Denies sore throat and Denies vertigo *Cardiovascular Cardiovascular: Reports chest pain, Reports dyspnea and Denies leg edema *Respiratory Respiratory: Reports cough, Reports dyspnea and Reports excessive phlegm production *Gastrointestinal Gastrointestinal: Denies abdominal pain, Denies loose stools, Denies nausea and Denies vomiting *Genitourinary Genitourinary: Denies difficulty voiding and Denies dysuria *Musculoskeletal Musculoskeletal: Reports back pain Integumentary/Breasts Skin/Breast: Denies other *Neurologic Neurologic: Denies vertigo and Reports weakness Endocrine Endocrine: Reports fatigue Meds Home Medications and Allergies Home Medications Medication Instructions Recorded Confirmed Type lisinopril 10 mg tablet 10 mg PO DAILY Hypertension 08/26/20 06/03/22 History metoclopramide HCl 10 mg tablet 10 mg PO BID bowels 08/26/20 06/04/22 History montelukast 10 mg tablet 10 mg PO PM allergies 08/26/20 06/03/22 History verapamil 80 mg tablet 80 mg PO DAILY Hypertension 08/26/20 06/03/22 History buspirone 10 mg tablet 10 mg PO BID Anxiety #90 tabs 04/23/22 06/03/22 Rx atorvastatin 40 mg tablet 20 mg PO HS Cholesterol #90 tabs 05/10/22 06/03/22 Rx omeprazole 40 mg capsule,delayed 40 mg PO DAILY GERD 05/13/22 06/03/22 History release famotidine 20 mg tablet 20 mg PO HS GERD 05/26/22 06/03/22 History folic acid 1 mg tablet 3 mg PO DAILY Supplement 05/26/22 06/03/22 History prednisone 5 mg tablet 5 mg PO DAILY STEROID 05/26/22 06/03/22 History ondansetron 4 mg disintegrating 4 mg PO TIDP PRN Nausea 05/31/22 06/04/22 History tablet albuterol sulfate 90 mcg/actuation 2 inh inhalation QID Breathing 06/03/22 06/04/22 History breath activated powder inhaler problems budesonide-formoterol HFA 80 1 inh inhalation BID Breathing 06/03/22 06/03/22 History mcg-4.5 mcg/actuation aerosol problems inhaler (Symbicort) [id number] 1 cap PO TID malabsorp
--- NOTE | 2022-06-04 11:20 | EXP.PHA.CONS ---
Pharmacy Consult Date: 06/04/22 Time: 11:21 Referring provider: DR. BASS Reason for Consult:: VANCOMYCIN DOSING Allergies Allergy/AdvReac Type Severity Reaction Status Date / Time Penicillins Allergy Unknown Unknown Verified 06/04/22 07:53 allergy reaction Home Medications Medication Instructions Recorded Confirmed Type lisinopril 10 mg tablet 10 mg PO DAILY bp 08/26/20 06/03/22 History metoclopramide HCl 10 mg tablet 10 mg PO DAILY bowels 08/26/20 06/03/22 History montelukast 10 mg tablet 10 mg PO PM allergies 08/26/20 06/03/22 History verapamil 80 mg tablet 80 mg PO DAILY bp 08/26/20 06/03/22 History buspirone 10 mg tablet 10 mg PO BID Anxiety #90 tabs 04/23/22 06/03/22 Rx atorvastatin 40 mg tablet 20 mg PO HS Cholesterol #90 tabs 05/10/22 06/03/22 Rx furosemide 40 mg tablet 40 mg PO DAILY bp #90 tabs 05/10/22 06/03/22 Rx omeprazole 40 mg capsule,delayed 40 mg PO DAILY GERD 05/13/22 06/03/22 History release famotidine 20 mg tablet 20 mg PO HS GERD 05/26/22 06/03/22 History folic acid 1 mg tablet 3 mg PO DAILY Supplement 05/26/22 06/03/22 History methotrexate sodium 2.5 mg tablet 2.5 mg PO DAILY Pain 05/26/22 06/03/22 History prednisone 5 mg tablet 5 mg PO DAILY Cough/cold 05/26/22 06/03/22 History promethazine-DM 6.25 mg-15 mg/5 mL 5 ml PO Q4-6H PRN cough #473 mL 05/26/22 06/03/22 Rx oral syrup ondansetron 4 mg disintegrating 4 mg PO NEEDED PRN Nausea 05/31/22 06/03/22 History tablet albuterol sulfate 90 mcg/actuation 2 inh inhalation QID Asthma 06/03/22 06/03/22 History breath activated powder inhaler azithromycin 250 mg tablet See Rx Instructions PO .COMPLEX 06/03/22 06/03/22 History (Zithromax Z-Juan) Infection budesonide-formoterol HFA 80 1 inh inhalation BID Cough/cold 06/03/22 06/03/22 History mcg-4.5 mcg/actuation aerosol inhaler (Symbicort) [id number]-[id number]-[id number] 1 cap PO TID malabsorption 06/03/22 06/03/22 History 36,000-114,000-180,000 unit capsule,delay rel (Creon) New Prescriptions to Start Prescriptions: Height: 1.63 m Weight: 79.946 kg Laboratory Results:: Laboratory Results - last 24 hr 06/03/22 16:00: WBC 14.0 H, RBC 3.62 L, Hgb 11.7 L, Hct 37.6, MCV 103.9 H, MCH 32.3 H, MCHC 31.0 L, RDW 18.8 H, Plt Count 492 H, MPV 8.6, Neut % (Auto) 87.0 H, Lymph % (Auto) 5.4 L, Warrick % (Auto) 6.9, Eos % (Auto) 0.3, Baso % (Auto) 0.4, Neut # (Auto) 12.2 H, Lymph # (Auto) 0.8, Warrick # (Auto) 1.0, Eos # (Auto) 0.0, Baso # (Auto) 0.1, Total Counted 100, Neutrophils % (Manual) 89 H, Band Neutrophils % 1.0, Lymphocytes % (Manual) 6 L, Monocytes % (Manual) 4, Platelet Estimate Slight increase, Macrocytosis 1+ 06/03/22 16:00: Sodium 128 L, Potassium 3.5, Chloride 90 L, Carbon Dioxide 32 H, Anion Gap 9.5, BUN 9, Creatinine 0.60, Estimated Creat Clear 73, Estimated GFR 102, Est GFR ( Amer) 123, Glucose 143 H, Calcium 8.4, Total Bilirubin 1.2, AST 38 H, ALT 23, Alkaline Phosphatase 146 H, Total Protein 6.7, Albumin 3.7, Globulin 3.0, Albumin/Globulin Ratio 1.2 06/03/22 16:00: Lactate 1.5 06/03/22 16:00: Troponin I 0.01, NT-Pro-B Natriuret Pep 2310 H 06/03/22 20:15: Troponin I < 0.01 06/03/22 22:52: Troponin I < 0.01 06/04/22 05:40: WBC 6.7 D, RBC 3.39 L, Hgb 10.8 L, Hct 35.0 L, MCV 103.2 H, MCH 31.9 H, MCHC 30.9 L, RDW 19.0 H, Plt Count 444 H, MPV 9.0, Neut % (Auto) 91.7 H, Lymph % (Auto) 5.0 L, Warrick % (Auto) 3.0, Eos % (Auto) 0.2, Baso % (Auto) 0.1, Neut # (Auto) 6.1, Lymph # (Auto) 0.3 L, Warrick # (Auto) 0.2, Eos # (Auto) 0.0, Baso # (Auto) 0.0, Total Counted 100, Neutrophils % (Manual) 92 H, Lymphocytes % (Manual) 4 L, Monocytes % (Manual) 4, Platelet Estimate Slight increase, Anisocytosis 1+, Macrocytosis 1+ 06/04/22 05:40: Sodium 132 L, Potassium 3.8, Chloride 95 L, Carbon Dioxide 30, Anion Gap 10.8, BUN 10, Creatinine 0.60, Estimated Creat Clear 75, Estimated GFR 102, Est GFR ( Amer) 123, Glucose 154 H, Calcium 8.3 L Medical History: Medical History (Updated 06/04/22 @ 08
--- NOTE | 2022-06-04 11:47 | HMH.PHAINT1 ---
Pharmacy Intervention Comments: MEDICATION RECONCILIATION COMPLETED ON PATIENT USING EXTERNAL FILL HISTORY FROM PHARMACY AND PATIENT INTERVIEW. -MISA CAMPOS, LANAD
--- NOTE | 2022-06-04 15:06 | PC.NURSE ---
rounded on patient. no concerns or questions. stated oxygen tubing was hurting ear, asked to take it off and see how her oxygen was doing. pulse ox placed on finger. encouraged her to ring out with any needs or concerns.
--- NOTE | 2022-06-04 16:19 | PC.NURSE ---
1600 pt began having a coughing fit r/t dry throat. MD fire prevention bureau captain paged as office was closed at this time. Dr Tomlin returned call at 1610. kelli dm 10ml q6h prn cough. costumed character before in comp at 1620
--- NOTE | 2022-06-04 16:33 | PC.NURSE ---
pt has been awake all afternoon. nad noted, lungs are clear, bowel sounds are active in all quads. pt is alert and oriented. pt is able to take meds whole. pt was able to ambulate to the bathroom for a shower with assist x 1. getting out of the bed was more difficult for the pt than ambulating.
[2022-06-05] VITALS (16 sets, daily range): BP systolic 132–155; BP diastolic 64–86; PULSE 97–119; RESP 16–21; TEMP 36.6–37.1; O2SAT 91–98; BMI 30.9
--- NOTE | 2022-06-05 09:25 | EXP.PN ---
Subjective *Date: 06/05/22 *Time: 09:25 Interval history: I feel better . Less SOA. Denies pain. Cough is nonproductive. Exam Data for Last 24 hours Vital signs and Labs for Last 24 Hours: Temp Pulse Resp BP Pulse Ox 98.0 F 112 H 16 146/70 H 95 06/05/22 08:00 06/05/22 08:00 06/05/22 08:00 06/05/22 08:00 06/05/22 08:00 I & O for Last 24 hours: Intake & Output 06/02/22 06/03/22 06/04/22 06/05/22 11:59 11:59 11:59 11:59 Intake Total 120 / 120 1560 / 1560 Output Total 1300 / 1300 2600 / 2600 Balance -1180 / -1180 -1040 / -1040 Weight 176 lb 4.012 oz 181 lb Microbiology Reports for the Last 24 Hours: Microbiology 06/04/22 13:40 Sputum - Expectorated Sputum Gram Stain - Final Constitutional Comments: She is alert and oriented. No respiratory distress. Breath sounds are generally diminished with scattered rhonchi. No wheezes. Abdomen is soft and nondistended with no tenderness. Extremities no edema. Assessment and Plan *Assessment and plan (1) Pneumonia: Status: Acute Qualifiers: Laterality: bilateral Lung location: lower lobe of lung Category: Medical Code(s): J18.9 - Pneumonia, unspecified organism (2) Shortness of breath: Status: Acute Category: Medical Code(s): R06.02 - Shortness of breath (3) Asthma: Status: Chronic Category: Medical Code(s): J45.909 - Unspecified asthma, uncomplicated (4) Hyperlipidemia: Status: Chronic Category: Medical Code(s): E78.5 - Hyperlipidemia, unspecified (5) Hypertension: Status: Chronic Category: Medical Code(s): I10 - Essential (primary) hypertension (6) Rheumatoid arthritis: Status: Chronic Category: Medical Code(s): M06.9 - Rheumatoid arthritis, unspecified (7) Scleroderma: Status: Chronic Category: Medical Code(s): M34.9 - Systemic sclerosis, unspecified (8) Elevated brain natriuretic peptide (BNP) level: Status: Acute Category: Medical Code(s): R79.89 - Other specified abnormal findings of blood chemistry Assessment and plan all Dx Plan of Treatment: Clinically improved. White count is normal. Sodium improved. Sputum culture is pending. Continue current antibiotics
--- NOTE | 2022-06-05 18:08 | PC.NURSE ---
Patient alert and oriented x 4, patient reports breathing has improved from previous day, lung sounds slightly diminished. Sinus tach, hypertensive, other vss, O2 sat 94% on room air. Patient did have an episode of controlled coughing, administered 10ML Robitussin DM.
[2022-06-05 21:06] LABS: Vancomycin,Trough 30.2 ug/mL (5.0-10.0)
--- NOTE | 2022-06-05 21:09 | PC.NURSE ---
notified night watch of pt's critical vanc trough level of 30.2, Elvia stated to hold night dose and will write note for pharmacy to update dosing for possible future doses
[2022-06-06] VITALS (12 sets, daily range): BP systolic 130–156; BP diastolic 66–90; PULSE 93–116; RESP 16–20; TEMP 36.3–36.9; O2SAT 94–99; BMI 30.9
[2022-06-06 08:24] LABS: Anion Gap 11.3 mEq/L (5-15); Blood Urea Nitrogen 21 mg/dl (7-17); Calcium 8.7 mg/dl (8.4-10.2); Carbon Dioxide 22 mmol/L (22.0-30.0); Chloride 103 mmol/L (98-107); Creatinine Clearance Estimated 77 mL/min (50-200); Estimated Glomerular Filt Rate 85 ml/min (>60); GFR (African American) 103 ML/MIN (>60); Glucose 145 mg/dl (74-100); Potassium 4.3 mmoL/L (3.5-5.1); Sodium 132 mmol/L (136-145)
--- NOTE | 2022-06-06 09:00 | EXP.PN ---
Subjective *Date: 06/06/22 *Time: 09:00 Interval history: She rested fairly well through the night. Still feels short of breath when up and about but improved from admission. Cough is mostly nonproductive. New complaint is that of sore mouth this morning. Exam Data for Last 24 hours Vital signs and Labs for Last 24 Hours: Temp Pulse Resp BP Pulse Ox 98.4 F 108 H 20 130/66 98 06/06/22 04:00 06/06/22 06:23 06/06/22 04:00 06/06/22 04:00 06/06/22 06:23 Laboratory Results - last 24 hr 06/05/22 20:30: Vancomycin Trough 30.2 H 06/06/22 07:47: Sodium 132 L, Potassium 4.3, Chloride 103, Carbon Dioxide 22, Anion Gap 11.3, BUN 21 H D, Creatinine 0.70, Estimated Creat Clear 77, Estimated GFR 85, Est GFR ( Amer) 103, Glucose 145 H, Calcium 8.7 I & O for Last 24 hours: Intake & Output 06/03/22 06/04/22 06/05/22 06/06/22 11:59 11:59 11:59 11:59 Intake Total 120 / 120 1810 / 1810 1540 / 1540 Output Total 1300 / 1300 3400 / 3800 2049 / 2049 Balance -1180 / -1180 -1590 / -1990 -510 / -510 Weight 176 lb 4.012 oz 181 lb 181 lb 8 oz Microbiology Reports for the Last 24 Hours: Microbiology 06/03/22 16:00 Blood Blood Culture - Preliminary NO GROWTH AFTER 48 HOURS 06/03/22 16:00 Blood Blood Culture - Preliminary NO GROWTH AFTER 48 HOURS Constitutional Comments: Alert and oriented. No respiratory distress. Color is good. Breath sounds are generally diminished with occasional rhonchi and few faint wheezes. Extremities no edema Assessment and Plan *Assessment and plan (1) Pneumonia: Status: Acute Qualifiers: Laterality: bilateral Lung location: lower lobe of lung Category: Medical Code(s): J18.9 - Pneumonia, unspecified organism (2) Asthma: Status: Chronic Category: Medical Code(s): J45.909 - Unspecified asthma, uncomplicated (3) Hyperlipidemia: Status: Chronic Category: Medical Code(s): E78.5 - Hyperlipidemia, unspecified (4) Hypertension: Status: Chronic Category: Medical Code(s): I10 - Essential (primary) hypertension (5) Rheumatoid arthritis: Status: Chronic Category: Medical Code(s): M06.9 - Rheumatoid arthritis, unspecified (6) Scleroderma: Status: Chronic Category: Medical Code(s): M34.9 - Systemic sclerosis, unspecified (7) Elevated brain natriuretic peptide (BNP) level: Status: Acute Category: Medical Code(s): R79.89 - Other specified abnormal findings of blood chemistry (8) Thrush, oral: Status: Acute Category: Medical Code(s): B37.0 - Candidal stomatitis Assessment and plan all Dx Plan of Treatment: Clinically improved. Morning labs pending. Continue current antibiotics. Sputum culture still pending. Add nystatin suspension for thrush. Encourage out of bed activity.
--- NOTE | 2022-06-06 09:11 | EXP.PHA.CONS ---
Pharmacy Consult Date: 06/06/22 Time: 09:11 Referring provider: DR SOLANO Reason for Consult:: VANCOMYCIN LEVEL OBTAINED Allergies Allergy/AdvReac Type Severity Reaction Status Date / Time Penicillins Allergy Unknown Unknown Verified 06/04/22 07:53 allergy reaction Home Medications Medication Instructions Recorded Confirmed Type lisinopril 10 mg tablet 10 mg PO DAILY Hypertension 08/26/20 06/03/22 History metoclopramide HCl 10 mg tablet 10 mg PO BID bowels 08/26/20 06/04/22 History montelukast 10 mg tablet 10 mg PO PM allergies 08/26/20 06/03/22 History verapamil 80 mg tablet 80 mg PO DAILY Hypertension 08/26/20 06/03/22 History buspirone 10 mg tablet 10 mg PO BID Anxiety #90 tabs 04/23/22 06/03/22 Rx atorvastatin 40 mg tablet 20 mg PO HS Cholesterol #90 tabs 05/10/22 06/03/22 Rx omeprazole 40 mg capsule,delayed 40 mg PO DAILY GERD 05/13/22 06/03/22 History release famotidine 20 mg tablet 20 mg PO HS GERD 05/26/22 06/03/22 History folic acid 1 mg tablet 3 mg PO DAILY Supplement 05/26/22 06/03/22 History prednisone 5 mg tablet 5 mg PO DAILY STEROID 05/26/22 06/03/22 History ondansetron 4 mg disintegrating 4 mg PO TIDP PRN Nausea 05/31/22 06/04/22 History tablet albuterol sulfate 90 mcg/actuation 2 inh inhalation QID Breathing 06/03/22 06/04/22 History breath activated powder inhaler problems budesonide-formoterol HFA 80 1 inh inhalation BID Breathing 06/03/22 06/03/22 History mcg-4.5 mcg/actuation aerosol problems inhaler (Symbicort) fevpha-mrpqycct-eekvcdu 1 cap PO TID malabsorption 06/03/22 06/03/22 History 36,000-114,000-180,000 unit capsule,delay rel (Creon) furosemide 40 mg tablet 40 mg PO DAILY Fluid 06/04/22 06/03/22 History promethazine-DM 6.25 mg-15 mg/5 mL 5 ml PO Q4HP PRN cough 06/04/22 06/04/22 History oral syrup New Prescriptions to Start Prescriptions: Height: 1.63 m Weight: 82.327 kg Laboratory Results:: Laboratory Results - last 24 hr 06/05/22 20:30: Vancomycin Trough 30.2 H 06/06/22 07:47: Sodium 132 L, Potassium 4.3, Chloride 103, Carbon Dioxide 22, Anion Gap 11.3, BUN 21 H D, Creatinine 0.70, Estimated Creat Clear 77, Estimated GFR 85, Est GFR ( Amer) 103, Glucose 145 H, Calcium 8.7 Medical History: Medical History (Updated 06/06/22 @ 09:03 by Darío Tomlin MD) Allergies Asthma Cataract GERD (gastroesophageal reflux disease) History of COVID-19 Hyperlipidemia Hypertension Rheumatoid arthritis Scleroderma Assessment and Plan Assessment and plan (1) Pneumonia: Status: Acute Qualifiers: Laterality: bilateral Lung location: lower lobe of lung Category: Medical Code(s): J18.9 - Pneumonia, unspecified organism Plan Pharmacokinetic dosing service Weight: 82 Kilograms Vancomycin single level analysis: Current dose being given: 1250 mg Current dosing interval: 12 hrs Current infusion time (hrs): 2 Single level Trough Data: Trough level obtained: 30.2 mcg/ml Timing of trough - # of hrs before next dose: 0.5 Hrs Desired peak: 35 mcg/ml Desired trough: 12.5 mcg/ml Diagnosis: PNEUMONIA Estimated PK Parameters: New rate constant (florian): 0.047 hr-1 Half-life: 14.75 Hours Vd from levels: 57.40 Liters (0.7 L/kg) CLvanco=?? 2.698 L/hr Estimated New Dose and Interval Recommended dose: 1420.4 mg Recommended interval: 23.9 Hrs Recommendations: Give Vancomycin 1500 mg q 24 hrs TO START 06/06/22 AT 09:30. Infuse over 2 hrs Expected Cpeak: 36.9 mcg/mL Expected Ctrough: 13.1 mcg/mL AUC 0-24 /MARYJO Data: MARYJO 1.0 mcg/mL:?? AUC/MARYJO:? 556.0 Thank you for the consult
--- NOTE | 2022-06-06 09:47 | PC.NURSE ---
Courtesy roel rojas: Pt is in the shower and received new linens.
--- NOTE | 2022-06-06 09:59 | EXP.ACUTE.PN ---
Subjective *Date: 06/06/22 *Time: 09:59 Medical Exam Vital signs and Labs for Last 24 Hours: Temp Pulse Resp BP Pulse Ox 97.4 F L 98 H 18 139/75 99 06/06/22 08:00 06/06/22 08:00 06/06/22 08:00 06/06/22 08:00 06/06/22 08:00 Laboratory Results - last 24 hr 06/05/22 20:30: Vancomycin Trough 30.2 H 06/06/22 07:47: Sodium 132 L, Potassium 4.3, Chloride 103, Carbon Dioxide 22, Anion Gap 11.3, BUN 21 H D, Creatinine 0.70, Estimated Creat Clear 77, Estimated GFR 85, Est GFR ( Amer) 103, Glucose 145 H, Calcium 8.7 I & O for Labs for Last 24 Hours: Intake & Output 06/03/22 06/04/22 06/05/22 06/06/22 23:59 23:59 23:59 23:59 Intake Total 960 / 960 1790 / 1790 720 / 720 Output Total 650 / 650 2650 / 3250 2750 / 2750 700 / 700 Balance -650 / -650 -1690 / -2290 -960 / -960 Weight 79.946 kg 79.946 kg 82.1 kg 82.327 kg Microbiology Reports for the Last 24 Hours: Microbiology 06/03/22 16:00 Blood Blood Culture - Preliminary NO GROWTH AFTER 48 HOURS 06/03/22 16:00 Blood Blood Culture - Preliminary NO GROWTH AFTER 48 HOURS The patient's infection will respond to the chosen ABx?: Yes (SPUTUM PENDING) Is the patient receiving the right drug, dose, and route?: Yes Could a more targeted ABx be ordered?: No
--- NOTE | 2022-06-06 13:39 | PC.NURSE ---
report given to Lobo Castellon RN
--- NOTE | 2022-06-06 15:38 | PC.NURSE ---
Pt is A/Ox4. She is pleasant and was moved rooms from 216-200. She has been sitting up in the bed, and moving to the BS with assist x2. She has tolerated her cardiac diet.
[2022-06-07] VITALS: BP 159/89; PULSE 112; RESP 16; TEMP 36.4; O2SAT 95
[2022-06-07 04:00] VITALS: BP 146/82; PULSE 106; RESP 16; TEMP 36.6; O2SAT 93
--- NOTE | 2022-06-07 04:22 | PC.NURSE ---
pt has rested throughout the night. A&OX4. up to BSC with assistance. no complaints of pain this shift. O2 sats 90s on RA. CB in reach.
[2022-06-07 04:26] VITALS: BMI 31.3
[2022-06-07 06:32] VITALS: PULSE 111; PULSE 114; O2SAT 91
[2022-06-07 07:12] LABS: Basophils % 0.3 % (0.1-2.0); Eosinophils # 0.1 K/mm3 (0.0-0.4); Eosinophils % 0.3 % (0.1-12.0); Hematocrit 32.9 % (37.0-47.0); Hemoglobin 10.5 g/dL (12.2-16.2); Lymphocytes # 0.6 K/mm3 (0.7-4.5); Lymphocytes % 3.7 % (10-50); Mean Corpuscular HGB Conc 31.8 g/dL (31.8-35.4); Mean Corpuscular Hemoglobin 32.7 pg (27.0-31.2); Mean Corpuscular Volume 102.8 fl (81-99); Mean Platelet Volume 8.4 fl (7.4-10.4); Monocytes # 0.9 K/mm3 (0.1-1.0); Monocytes % 5.8 % (1.7-9.3); Neutrophils # 13.3 K/mm3 (1.8-7.8); Neutrophils % 89.8 % (37.0-80.0); Platelet Count 441 K/mm3 (142-424); Red Cell Distribution Width 19.1 % (11.5-17.5); White Blood Count 14.8 K/mm3 (4.8-10.8)
[2022-06-07 07:14] LABS: MANUAL DIFFERENTIAL MANUAL DIFFERENTIAL (MANUAL DIFF)
[2022-06-07 07:33] VITALS: BP 129/71; PULSE 113; RESP 20; TEMP 36.9; O2SAT 96
[2022-06-07 07:43] LABS: Anisocytosis 1+; Hypochromasia 1+; Lymphocytes % 17 % (10-50); Monocytes % 5 % (2-9); Neutrophils % 78 % (42-76); Platelet Estimate Normal; Total Cells Counted 100
[2022-06-07 07:44] LABS: Anion Gap 7.8 mEq/L (5-15); Blood Urea Nitrogen 22 mg/dl (7-17); Calcium 8.6 mg/dl (8.4-10.2); Carbon Dioxide 27 mmol/L (22.0-30.0); Chloride 105 mmol/L (98-107); Creatinine Clearance Estimated 78 mL/min (50-200); Estimated Glomerular Filt Rate 85 ml/min (>60); GFR (African American) 103 ML/MIN (>60); Glucose 115 mg/dl (74-100); Potassium 3.8 mmoL/L (3.5-5.1); Sodium 136 mmol/L (136-145)
--- NOTE | 2022-06-07 08:40 | EXP.ACUTE.PN ---
Subjective *Date: 06/07/22 *Time: 08:50 Interval history: Patient feels better today, less cough. Medical Exam Vital signs and Labs for Last 24 Hours: Temp Pulse Resp BP Pulse Ox 98.4 F 113 H 20 129/71 96 06/07/22 07:33 06/07/22 07:33 06/07/22 07:33 06/07/22 07:33 06/07/22 07:33 Laboratory Results - last 24 hr 06/06/22 07:47: Sodium 132 L, Potassium 4.3, Chloride 103, Carbon Dioxide 22, Anion Gap 11.3, BUN 21 H D, Creatinine 0.70, Estimated Creat Clear 77, Estimated GFR 85, Est GFR ( Amer) 103, Glucose 145 H, Calcium 8.7 06/07/22 06:41: WBC 14.8 H, RBC 3.20 L, Hgb 10.5 L, Hct 32.9 L, MCV 102.8 H, MCH 32.7 H, MCHC 31.8, RDW 19.1 H, Plt Count 441 H, MPV 8.4, Neut % (Auto) 89.8 H, Lymph % (Auto) 3.7 L, [place] % (Auto) 5.8, Eos % (Auto) 0.3, Baso % (Auto) 0.3, Neut # (Auto) 13.3 H, Lymph # (Auto) 0.6 L, [place] # (Auto) 0.9, Eos # (Auto) 0.1, Baso # (Auto) 0.0, Total Counted 100, Neutrophils % (Manual) 78 H, Lymphocytes % (Manual) 17, Monocytes % (Manual) 5, Platelet Estimate Normal, Hypochromasia 1+, Anisocytosis 1+ 06/07/22 06:41: Sodium 136, Potassium 3.8, Chloride 105, Carbon Dioxide 27, Anion Gap 7.8, BUN 22 H, Creatinine 0.70, Estimated Creat Clear 78, Estimated GFR 85, Est GFR ( Amer) 103, Glucose 115 H D, Calcium 8.6 I & O for Labs for Last 24 Hours: Intake & Output 06/04/22 06/05/22 06/06/22 06/07/22 23:59 23:59 23:59 23:59 Intake Total 960 / 960 1790 / 1790 1560 / 1560 Output Total 2650 / 3250 2750 / 2750 2049 0 / 0 Balance -1690 / -2290 -960 / -960 -490 / -490 0 / 0 Weight 176 lb 4.012 oz 181 lb 181 lb 8 oz 183 lb 4 oz Microbiology Reports for the Last 24 Hours: Microbiology 06/04/22 13:40 Sputum - Expectorated Sputum Gram Stain - Final 06/04/22 13:40 Sputum - Expectorated Sputum Sputum Culture - Preliminary Constitutional: no acute distress Respiratory: rales (bilateral) and wheezes Cardiac: Reg Rate and Rhythm GI: soft, tenderness or normal bowel sounds Assessment and Plan *Assessment and plan (1) Pneumonia: Status: Acute Qualifiers: Laterality: bilateral Lung location: lower lobe of lung Category: Medical Code(s): J18.9 - Pneumonia, unspecified organism (2) Asthma: Status: Chronic Category: Medical Code(s): J45.909 - Unspecified asthma, uncomplicated (3) Hyperlipidemia: Status: Chronic Category: Medical Code(s): E78.5 - Hyperlipidemia, unspecified (4) Hypertension: Status: Chronic Category: Medical Code(s): I10 - Essential (primary) hypertension (5) Rheumatoid arthritis: Status: Chronic Category: Medical Code(s): M06.9 - Rheumatoid arthritis, unspecified (6) Scleroderma: Status: Chronic Category: Medical Code(s): M34.9 - Systemic sclerosis, unspecified (7) Elevated brain natriuretic peptide (BNP) level: Status: Acute Category: Medical Code(s): R79.89 - Other specified abnormal findings of blood chemistry (8) Thrush, oral: Status: Acute Category: Medical Code(s): B37.0 - Candidal stomatitis Assessment and plan all Dx Plan of Treatment: Patient has improved and is ready to go home. Plan to continue outpatient oral antibiotics and f/u in the office next week.
--- NOTE | 2022-06-07 09:03 | P.PN_ITS ---
Subjective *Date: 06/07/22 *Time: 09:03 Medical Exam Vital signs and Labs for Last 24 Hours: Temp Pulse Resp BP Pulse Ox 98.4 F 113 H 20 129/71 96 06/07/22 07:33 06/07/22 07:33 06/07/22 07:33 06/07/22 07:33 06/07/22 07:33 Laboratory Results - last 24 hr 06/07/22 06:41: WBC 14.8 H, RBC 3.20 L, Hgb 10.5 L, Hct 32.9 L, MCV 102.8 H, MCH 32.7 H, MCHC 31.8, RDW 19.1 H, Plt Count 441 H, MPV 8.4, Neut % (Auto) 89.8 H, Lymph % (Auto) 3.7 L, [place] % (Auto) 5.8, Eos % (Auto) 0.3, Baso % (Auto) 0.3, Neut # (Auto) 13.3 H, Lymph # (Auto) 0.6 L, [place] # (Auto) 0.9, Eos # (Auto) 0.1, Baso # (Auto) 0.0, Total Counted 100, Neutrophils % (Manual) 78 H, Lymphocytes % (Manual) 17, Monocytes % (Manual) 5, Platelet Estimate Normal, Hypochromasia 1+, Anisocytosis 1+ 06/07/22 06:41: Sodium 136, Potassium 3.8, Chloride 105, Carbon Dioxide 27, Anion Gap 7.8, BUN 22 H, Creatinine 0.70, Estimated Creat Clear 78, Estimated GFR 85, Est GFR ( Amer) 103, Glucose 115 H D, Calcium 8.6 I & O for Labs for Last 24 Hours: Intake & Output 06/04/22 06/05/22 06/06/22 06/07/22 23:59 23:59 23:59 23:59 Intake Total 960 / 960 1790 / 1790 1560 / 1560 Output Total 2650 / 3250 2750 / 2750 2049 / 2049 0 / 0 Balance -1690 / -2290 -960 / -960 -490 / -490 0 / 0 Weight 176 lb 4.012 oz 181 lb 181 lb 8 oz 183 lb 4 oz Microbiology Reports for the Last 24 Hours: Microbiology 06/04/22 13:40 Sputum - Expectorated Sputum Gram Stain - Final 06/04/22 13:40 Sputum - Expectorated Sputum Sputum Culture - Preliminary Assessment and Plan Assessment and plan all Dx Plan of Treatment: Patient has improved and is ready to go home. Plan to continue outpatient oral antibiotics and f/u in the office next week.
[2022-06-07 09:38] VITALS: PULSE 91; PULSE 92
--- NOTE | 2022-06-07 09:58 | HMH.PHAINT1 ---
Pharmacy Intervention Comments: DISCHARGE MEDICATION COUNSELING PROVIDED. DISCUSSED CEFDINIR (TWICE DAILY, GI UPSET/DIARRHEA POSSIBLE, MAY WANT TO TAKE WITH FOOD) AND NYSTATIN (THRUSH, FOUR TIMES DAILY). PATIENT VERBALIZED NO QUESTIONS AT THIS TIME.
--- NOTE | 2022-06-07 20:38 | EXP.DC.SUM ---
General Admission date:: 06/03/22 Discharge date: 06/07/22 HPI HPI HPI: Ms. Clark is a 61-year-old female with a history of Raynaud's, rheumatoid arthritis, and asthma. She stated she had been sick for approximately a week and a half and had been to see Dr. Tuttle and was prescribed a Z-Juan and some cough syrup. She states her shortness of breath and cough continued to worsen and she was coughing up yellow-brown sputum. She developed a low-grade fever as well. Her shortness of breath got so bad that she was unable to walk across her home and presented to the emergency room for further evaluation and treatment. Patient's chest x-ray showed chronic findings without acute cardiopulmonary process. Her white blood cell count was elevated and she was placed on IV antibiotics and admitted. The following a.m. she felt slightly better. Hospital Course Hospital Course Hospital Course: On admission patient was started on antibiotics and duo nebs for her bilateral pneumonia. She was noted to have failed outpatient treatment and was hypoxic. She was started on cefepime and vancomycin while awaiting culture results. She did develop a sore mouth and was started on nystatin for probable thrush. Patient gradually improved with less shortness of breath. Cough remained mostly nonproductive. 06/07/2022 patient had improved to the point that she was ready to be discharged to home. Plan was to continue with outpatient oral antibiotic and follow-up in the office in 1 week. Exam Data for Last 24 hours Vital signs and Labs for Last 24 Hours: Temp Pulse Resp BP Pulse Ox 98.4 F 91 H 20 129/71 96 06/07/22 07:33 06/07/22 09:38 06/07/22 07:33 06/07/22 07:33 06/07/22 07:33 Laboratory Results - last 24 hr 06/07/22 06:41: WBC 14.8 H, RBC 3.20 L, Hgb 10.5 L, Hct 32.9 L, MCV 102.8 H, MCH 32.7 H, MCHC 31.8, RDW 19.1 H, Plt Count 441 H, MPV 8.4, Neut % (Auto) 89.8 H, Lymph % (Auto) 3.7 L, [place] % (Auto) 5.8, Eos % (Auto) 0.3, Baso % (Auto) 0.3, Neut # (Auto) 13.3 H, Lymph # (Auto) 0.6 L, [place] # (Auto) 0.9, Eos # (Auto) 0.1, Baso # (Auto) 0.0, Total Counted 100, Neutrophils % (Manual) 78 H, Lymphocytes % (Manual) 17, Monocytes % (Manual) 5, Platelet Estimate Normal, Hypochromasia 1+, Anisocytosis 1+ 06/07/22 06:41: Sodium 136, Potassium 3.8, Chloride 105, Carbon Dioxide 27, Anion Gap 7.8, BUN 22 H, Creatinine 0.70, Estimated Creat Clear 78, Estimated GFR 85, Est GFR ( Amer) 103, Glucose 115 H D, Calcium 8.6 I & O for Last 24 hours: Intake & Output 06/05/22 06/06/22 06/07/22 06/08/22 11:59 11:59 11:59 11:59 Intake Total 1810 / 1810 1540 / 1540 1200 / 1200 Output Total 3400 / 3400 2350 / 2350 1050 / 1050 Balance -1590 / -1590 -810 / -810 150 / 150 Weight 181 lb 181 lb 8 oz 183 lb 4 oz Microbiology Reports for the Last 24 Hours: Microbiology 06/04/22 13:40 Sputum - Expectorated Sputum Gram Stain - Final 06/04/22 13:40 Sputum - Expectorated Sputum Sputum Culture - Preliminary Narrative: Constitutional: no acute distress Respiratory: rales (bilateral) and wheezes Cardiac: Reg Rate and Rhythm GI: soft, tenderness or normal bowel sounds Results Data Completed and Pending Completed studies during hospitalization [Text1]: 06/03/2022 CXR: FINDINGS: SINGLE-VIEW CHEST? The heart size is normal. The mediastinum is normal.? The patient is rotated to the right.? The lungs are underinflated.? There is deformity of the right and left chest valderrama consistent with old fractures.? There is pleural thickening at the periphery of the right hemithorax and scarring at the lung bases.? There is no pneumothorax. IMPRESSION: Chronic appearing findings without acute cardiopulmonary process. Labs on day of discharge: Labs from last 24 hours 06/07/22 06/07/22 06:41 06:41 WBC 14.8 H RBC 3.20 L Hgb 10.5 L Hct 32.9 L MCV 102.8 H MCH 32.7 H MCHC 31.8 RDW 19.1 H Plt Count 441 H MPV 8.4 Neut % (Auto
--- NOTE | 2022-06-08 14:47 | CARE MANAGER ---
Contacted patient related to hospital discharge. She states she is doing better, but just a little weak. She picked up her medications and denies any questions or concerns at this time. JONES Hernandez
== END 2022-06-07 11:55 | disposition home or self-care (01) | DRG 194 ==
LOC: ER 16:15 → 2ND 20:33
PROVIDERS: Admitting Provider Family Medicine; Emergency Provider Emergency Medicine; PCP Family Medicine; Visit Provider Family Medicine
DX: J18.9 Pneumonia, unspecified organism (principal); B37.0 Candidal stomatitis; J45.909 Unspecified asthma, uncomplicated; I10 Essential (primary) hypertension; M34.9 Systemic sclerosis, unspecified; M06.9 Rheumatoid arthritis, unspecified; E78.5 Hyperlipidemia, unspecified; Z96.643 Presence of artificial hip joint, bilateral; K21.9 Gastro-esophageal reflux disease without esophagitis; Z96.639 Presence of unspecified artificial wrist joint; Z96.659 Presence of unspecified artificial knee joint
CPT/HCPCS: 36415; 71045; 80048; 80053; 80202; 83605; 83880; 84484; 85007; 85025; 87040; 87070; 87205; 93005; 94640; 99285; C9803; J0456; J0696; U0003; U0005

== ENCOUNTER → 2022-06-11 15:15 | Outpatient (CLI) | payer MEDICARE, SELFPAY ==
[2022-06-11 21:24] LABS: Anion Gap 5.6 mEq/L (5-15); Blood Urea Nitrogen 18 mg/dl (7-17); Calcium 8.3 mg/dl (8.4-10.2); Carbon Dioxide 39 mmol/L (22.0-30.0); Chloride 93 mmol/L (98-107); Estimated Glomerular Filt Rate 102 ml/min (>60); GFR (African American) 123 ML/MIN (>60); Glucose 115 mg/dl (74-100); Potassium 3.6 mmoL/L (3.5-5.1); Sodium 134 mmol/L (136-145)
== END ==
PROVIDERS: PCP Family Medicine; Visit Provider Family Medicine
DX: R60.0 Localized edema (principal)
CPT/HCPCS: 80048

== ENCOUNTER → 2022-06-24 09:35 | Outpatient (CLI) | payer MEDICARE, SELFPAY ==
--- NOTE | 2022-06-24 09:39 | XR_ITS ---
FINAL REPORT TECHNIQUE: Bone densitometry calculations of both forearms were obtained. CLINICAL HISTORY: .OSTEOPOROSIS FINDINGS: DEXA BONE DENSITY AXIAL SKELETON Using the right forearm, the bone mineral density of the distal 1/3 0.357 g/cm2, corresponding to T-score of -5.6. Using the left forearm, the bone mineral density of the distal 1/3 is 0.245 g/cm2, corresponding to a T-score of -7.5. NOTE: T-score: Standard deviation compared with peak bone mass of young adult mean. *Following the recommendations of the International Society of Bone Densitometry, classification of hip BMD is based on the lower of two T-scores; total hip or femoral neck. IMPRESSION: Osteoporosis: Lowest T-score is at or below -2.5. This patient's T-score meets the World Health Organization criteria for osteoporosis. Reviewed, Interpreted and Dictated by Federico Coello III, MD Transcribed by Jennifer Castellon Authenticated and . [facility]
[2022-06-24 11:10] LABS: Alanine Aminotransferase 22 U/L (12-78); Albumin Level 3.7 g/dl (3.5-5.0); Albumin/Globulin Ratio 1.4 (1.1-1.8); Alkaline Phosphatase 155 U/L (38-126); Anion Gap 13.3 mEq/L (5-15); Aspartate Amino Transferase 29 U/L (14-36); Bilirubin,Total 0.3 mg/dl (0.2-1.3); Blood Urea Nitrogen 16 mg/dl (7-17); Calcium 8.8 mg/dl (8.4-10.2); Carbon Dioxide 32 mmol/L (22.0-30.0); Chloride 96 mmol/L (98-107); Estimated Glomerular Filt Rate 85 ml/min (>60); GFR (African American) 103 ML/MIN (>60); Globulin 2.6 g/dL (1.3-3.2); Glucose 92 mg/dl (74-100); Potassium 3.3 mmoL/L (3.5-5.1); Sodium 138 mmol/L (136-145); Total Protein,Serum 6.3 g/dl (6.3-8.2)
== END ==
PROVIDERS: PCP Family Medicine; Visit Provider Internal Medicine Rheumatology
DX: Z78.0 Asymptomatic menopausal state (principal); M81.0 Age-related osteoporosis without current pathological fracture; M35.1 Other overlap syndromes; J84.9 Interstitial pulmonary disease, unspecified; Z87.19 Personal history of other diseases of the digestive system; Z79.899 Other long term (current) drug therapy; Z79.52 Long term (current) use of systemic steroids
CPT/HCPCS: 36415; 77080; 80053

== ENCOUNTER → 2022-07-29 14:22 | Outpatient (CLI) | payer MEDICARE, SELFPAY ==
[2022-07-29 16:57] LABS: Chloride 96 mmol/L (98-107); Potassium 4.9 mmoL/L (3.5-5.1); Sodium 136 mmol/L (136-145)
[2022-07-29 17:00] LABS: Alanine Aminotransferase 24 U/L (12-78); Albumin Level 4.3 g/dl (3.5-5.0); Albumin/Globulin Ratio 1.7 (1.1-1.8); Alkaline Phosphatase 97 U/L (38-126); Amylase 66 U/L (30-110); Anion Gap 20.9 mEq/L (5-15); Aspartate Amino Transferase 34 U/L (14-36); Bilirubin,Total 0.2 mg/dl (0.2-1.3); Blood Urea Nitrogen 25 mg/dl (7-17); Calcium 9.2 mg/dl (8.4-10.2); Carbon Dioxide 24 mmol/L (22.0-30.0); Estimated Glomerular Filt Rate 56 ml/min (>60); GFR (African American) 68 ML/MIN (>60); Globulin 2.6 g/dL (1.3-3.2); Glucose 104 mg/dl (74-100); Lipase 150 U/L (23-300); Total Protein,Serum 6.9 g/dl (6.3-8.2)
[2022-07-31 13:19] LABS: Calcium, Ionized 5.3 mg/dL (4.5-5.6)
== END ==
PROVIDERS: PCP Family Medicine; Visit Provider Nurse Practitioner Family
DX: K85.90 Acute pancreatitis without necrosis or infection, unspecified (principal); K58.9 Irritable bowel syndrome, unspecified
CPT/HCPCS: 36415; 80053; 82150; 82330; 83690

== ENCOUNTER → 2022-08-05 12:54 | Outpatient (CLI) | payer MEDICARE, SELFPAY ==
[2022-08-05 13:21] LABS: Basophils # 0.1 K/mm3 (0-0.2); Basophils % 0.5 % (0.1-2.0); Eosinophils # 0.1 K/mm3 (0.0-0.4); Eosinophils % 0.5 % (0.1-12.0); Hematocrit 41.1 % (37.0-47.0); Hemoglobin 13.2 g/dL (12.2-16.2); Lymphocytes % 6.1 % (10-50); Mean Corpuscular HGB Conc 32.1 g/dL (31.8-35.4); Mean Corpuscular Hemoglobin 31.9 pg (27.0-31.2); Mean Corpuscular Volume 99.4 fl (81-99); Mean Platelet Volume 9.1 fl (7.4-10.4); Monocytes # 0.4 K/mm3 (0.1-1.0); Monocytes % 2.3 % (1.7-9.3); Neutrophils # 14.5 K/mm3 (1.8-7.8); Neutrophils % 90.6 % (37.0-80.0); Platelet Count 440 K/mm3 (142-424); Red Blood Count 4.14 M/mm3 (4.20-5.40); Red Cell Distribution Width 16.4 % (11.5-17.5)
[2022-08-05 13:26] LABS: MANUAL DIFFERENTIAL MANUAL DIFFERENTIAL (MANUAL DIFF)
[2022-08-05 13:45] LABS: Erythrocyte Sedimentation Rate 17 mm/hr (0-30)
[2022-08-05 13:53] LABS: Lymphocytes % 4 % (10-50); Monocytes % 1 % (2-9); Neutrophils % 95 % (42-76); Total Cells Counted 100
[2022-08-05 13:54] LABS: Platelet Estimate Slight Increase; RBC Morphology Normal
[2022-08-05 14:01] LABS: Chloride 97 mmol/L (98-107); Potassium 4.2 mmoL/L (3.5-5.1); Sodium 134 mmol/L (136-145)
[2022-08-05 14:04] LABS: Alanine Aminotransferase 26 U/L (12-78); Albumin Level 4.1 g/dl (3.5-5.0); Albumin/Globulin Ratio 1.9 (1.1-1.8); Alkaline Phosphatase 102 U/L (38-126); Anion Gap 13.2 mEq/L (5-15); Aspartate Amino Transferase 37 U/L (14-36); Bilirubin,Total 0.3 mg/dl (0.2-1.3); Blood Urea Nitrogen 17 mg/dl (7-17); Carbon Dioxide 28 mmol/L (22.0-30.0); Creatine Kinase 29 U/L (30-135); Estimated Glomerular Filt Rate 73 ml/min (>60); GFR (African American) 88 ML/MIN (>60); Globulin 2.2 g/dL (1.3-3.2); Glucose 107 mg/dl (74-100); Total Protein,Serum 6.3 g/dl (6.3-8.2)
[2022-08-05 14:10] LABS: C-Reactive Protein 1.4 mg/L (0-4)
[2022-08-09 15:09] LABS: Aldolase 6.2 U/L (3.3-10.3)
[2022-08-09 16:12] LABS: Pancreatic Elastase, Fecal 160 (>200)
== END ==
PROVIDERS: PCP Internal Medicine Rheumatology; Visit Provider Nurse Practitioner Family
DX: M35.1 Other overlap syndromes (principal); M81.0 Age-related osteoporosis without current pathological fracture; J84.9 Interstitial pulmonary disease, unspecified; K85.90 Acute pancreatitis without necrosis or infection, unspecified; K58.9 Irritable bowel syndrome, unspecified; Z79.52 Long term (current) use of systemic steroids; Z79.899 Other long term (current) drug therapy
CPT/HCPCS: 36415; 80053; 82085; 82550; 82656; 85007; 85025; 85651; 86140

== ENCOUNTER → 2022-08-13 08:50 | Outpatient (CLI) | payer MEDICARE, SELFPAY | PROVIDERS: PCP Internal Medicine Rheumatology; Visit Provider Nurse Practitioner Family | DX: K85.90 Acute pancreatitis without necrosis or infection, unspecified (principal); K58.9 Irritable bowel syndrome, unspecified ==

== ENCOUNTER 2022-09-07 06:29 | Day surgery (SDC) | payer MEDICARE, SELFPAY ==
[2022-09-03 13:17] VITALS: BMI 27.9
[2022-09-07 06:45] VITALS: BP 146/80; PULSE 102; RESP 18; TEMP 37.1; O2SAT 95
--- NOTE | 2022-09-07 07:00 | EXP.ANES.CKL ---
[facility] Medical History Acquired hammer toes of both feet Allergies Asthma Callus of foot Cataract Elevated brain natriuretic peptide (BNP) level GERD (gastroesophageal reflux disease) History of COVID-19 Hyperlipidemia Hypertension Keratosis Localized edema Onychodystrophy Pancreatitis Renal mass Rheumatoid arthritis Scleroderma Surgical History History of bilateral hip replacements History of cholecystectomy History of colonoscopy History of knee replacement History of wrist replacement Family History Other Breast cancer in female Hypertension Stroke Social History Smoking Status: Never smoker alcohol intake: never substance use type: denies use current occupational status: disabled Travel in the last 8 weeks: None adopted: No household members: spouse housing: house caffeine: Yes [facility] Anesthesia Checklist Patient Identification Patient Identification: Arm Band and Verbal (Name & ) Structural Data Admitted From: Home Planned Operative Procedure/s: Colonoscopy Consent for Planned Operative Procedure(s) Verified: Yes NPO Status Verified Time NPO: 00:00 Airway Assessment C-Spine Mobility Assessed: Yes TMJ Mobility Assessed: Yes Dentition: Poor Dentition Neurological Assessment Level of Consciousness: Awake Hx Seizures: No Numbness or tingling in extremities: No Anesthesia Plan Anesthesia Risk discussed: Yes Anesthesia Plan: Verified ASA Class: III Anesthesia Type: MAC
[2022-09-07 07:11] VITALS: O2SAT 95
[2022-09-07 08:01] VITALS: BP 104/61; PULSE 83; RESP 22; TEMP 36.1; O2SAT 93
--- NOTE | 2022-09-07 08:02 | HMH.SCOPE ---
Procedure: Date: 09/07/22 Patient Date of :: 1960 Procedure Performed:: Colonoscopy with polypectomy Indications:: Screening Performing Provider:: See Edwards MD Referring Provider:: Dr. Tuttle Sedation:: Monitored anesthesia care Procedure:: After informed consent was obtained the patient was taken to the endoscopy suite. Sedation ensued after the patient was transferred to the left lateral decubitus position. Pulse, blood pressure, and oxygen saturation were monitored throughout the procedure. Digital rectal exam revealed no significant abnormality. The colonoscope was placed in position. The entire colon was evaluated. The colonoscope was carefully removed and the patient was transferred to recovery in stable condition. Please see findings and specimens below for detail. Findings:: Bowel preparation moderate Scattered sigmoid diverticulosis Hemorrhoidal cushions Polyps (see specimens) Specimens:: Cecal polyp (cold biopsy forceps) Partially-pedunculated right colon polyp (cold snare) Polyp at 60 cm (cold biopsy forceps) Recommendations:: Timing of repeat colonoscopy is pending pathology but likely be between 2-3 years. Complications:: No immediate Estimated blood obtained (mL): 1
[2022-09-07 08:11] VITALS: BP 107/58; PULSE 84; RESP 20; O2SAT 97
[2022-09-07 08:21] VITALS: BP 114/64; PULSE 84; RESP 20; O2SAT 98
[2022-09-07 08:31] VITALS: BP 112/57; PULSE 86; RESP 18; TEMP 36.3; O2SAT 97
== END 2022-09-07 08:35 | disposition home or self-care (01) ==
PROVIDERS: PCP Family Medicine; Visit Provider Surgery
PROC: 0DJD8ZZ Inspection of Lower Intestinal Tract, Via Natural or Artificial Opening Endoscopic (ICD-10-PCS; principal; 2022-09-07 07:30)
DX: Z12.11 Encounter for screening for malignant neoplasm of colon (principal); D12.6 Benign neoplasm of colon, unspecified; Z79.899 Other long term (current) drug therapy
CPT/HCPCS: 45380; 45385; J2704

== ENCOUNTER → 2022-09-10 07:53 | Outpatient (CLI) | payer MEDICARE, SELFPAY ==
[2022-09-10 08:21] LABS: Blood Urea Nitrogen 17 mg/dl (7-17); Estimated Glomerular Filt Rate 73 ml/min (>60); GFR (African American) 88 ML/MIN (>60)
== END ==
PROVIDERS: PCP Internal Medicine Rheumatology; Visit Provider Nurse Practitioner Family
DX: K85.90 Acute pancreatitis without necrosis or infection, unspecified (principal)
CPT/HCPCS: 36415; 82565; 84520

== ENCOUNTER → 2022-09-17 08:59 | Outpatient (CLI) | payer MEDICARE, SELFPAY ==
--- NOTE | 2022-09-17 10:17 | HMH.ITSTN ---
called as spoke with Leonel from [facility] [employer] office. Both Mrs Harvey and her nurse were out today but i left a message making this aware that we were unsuccessful in gettinig Mrs Clarks CT With contrast. We had Roseanne from outpatient nurse come over with ultrasound to start her iv since we were unsuccessful last week to. Both of Roseanne iv extravasated.
== END ==
PROVIDERS: PCP Family Medicine; Visit Provider Nurse Practitioner Family
DX: K85.90 Acute pancreatitis without necrosis or infection, unspecified (principal)

== ENCOUNTER → 2022-10-27 10:59 | Outpatient (CLI) | payer OTHER, SELFPAY ==
[2022-10-27 11:45] LABS: Basophils # 0.1 K/mm3 (0-0.2); Basophils % 0.8 % (0.1-2.0); Eosinophils # 0.2 K/mm3 (0.0-0.4); Eosinophils % 1.8 % (0.1-12.0); Hematocrit 42.5 % (37.0-47.0); Hemoglobin 13.4 g/dL (12.2-16.2); Lymphocytes # 1.8 K/mm3 (0.7-4.5); Lymphocytes % 15.9 % (10-50); Mean Corpuscular HGB Conc 31.6 g/dL (31.8-35.4); Mean Corpuscular Volume 101.4 fl (81-99); Monocytes # 0.8 K/mm3 (0.1-1.0); Monocytes % 7.6 % (1.7-9.3); Neutrophils # 8.2 K/mm3 (1.8-7.8); Neutrophils % 73.9 % (37.0-80.0); Platelet Count 367 K/mm3 (142-424); Red Cell Distribution Width 18.3 % (11.5-17.5); White Blood Count 11.2 K/mm3 (4.8-10.8)
[2022-10-27 12:43] LABS: Alanine Aminotransferase 34 U/L (12-78); Albumin Level 4.1 g/dl (3.5-5.0); Albumin/Globulin Ratio 1.8 (1.1-1.8); Alkaline Phosphatase 63 U/L (38-126); Anion Gap 10.2 mEq/L (5-15); Aspartate Amino Transferase 45 U/L (14-36); Bilirubin,Total 0.5 mg/dl (0.2-1.3); Blood Urea Nitrogen 16 mg/dl (7-17); Calcium 8.9 mg/dl (8.4-10.2); Carbon Dioxide 30 mmol/L (22.0-30.0); Chloride 101 mmol/L (98-107); Creatine Kinase 27 U/L (30-135); Estimated Glomerular Filt Rate 85 ml/min (>60); GFR (African American) 103 ML/MIN (>60); Globulin 2.3 g/dL (1.3-3.2); Glucose 94 mg/dl (74-100); Potassium 3.2 mmoL/L (3.5-5.1); Sodium 138 mmol/L (136-145); Total Protein,Serum 6.4 g/dl (6.3-8.2)
[2022-10-27 12:48] LABS: C-Reactive Protein 0.8 mg/L (0-4)
[2022-10-27 12:57] LABS: Erythrocyte Sedimentation Rate 16 mm/hr (0-30)
[2022-10-28 17:05] LABS: Aldolase 6.6 U/L (3.3-10.3)
== END ==
PROVIDERS: PCP Family Medicine; Visit Provider Internal Medicine Rheumatology
DX: M35.1 Other overlap syndromes (principal); D72.829 Elevated white blood cell count, unspecified; M81.0 Age-related osteoporosis without current pathological fracture; J84.9 Interstitial pulmonary disease, unspecified; Z79.899 Other long term (current) drug therapy; Z79.52 Long term (current) use of systemic steroids
CPT/HCPCS: 36415; 80053; 82085; 82550; 85025; 85651; 86140

== ENCOUNTER → 2022-11-30 12:22 | Outpatient (CLI) | payer OTHER, MEDICARE, SELFPAY ==
[2022-12-01 08:16] LABS: CA 19-9 12 U/mL (0-35)
[2022-12-01 18:08] LABS: IgG, Subclass 1 523 mg/dL (248-810); IgG, Subclass 2 246 mg/dL (130-555); IgG, Subclass 3 178 mg/dL (15-102); IgG, Subclass 4 18 mg/dL (2-96); Immunoglobulin G, Qn 1003 mg/dL (586-1602)
[2022-12-30 08:00] LABS: Miscellaneous Test SCANNED IMAGE
== END ==
PROVIDERS: PCP Family Medicine; Visit Provider Nurse Practitioner Family
DX: K86.1 Other chronic pancreatitis (principal); K85.90 Acute pancreatitis without necrosis or infection, unspecified; K58.9 Irritable bowel syndrome, unspecified; K86.81 Exocrine pancreatic insufficiency
CPT/HCPCS: 36415; 82784; 82787; 86316

== ENCOUNTER → 2023-01-25 12:43 | Outpatient (CLI) | payer MEDICARE, SELFPAY ==
[2023-01-25 13:13] LABS: Basophils % 0.3 % (0.1-2.0); Eosinophils # 0.1 K/mm3 (0.0-0.4); Eosinophils % 0.7 % (0.1-12.0); Hematocrit 45.4 % (37.0-47.0); Hemoglobin 14.5 g/dL (12.2-16.2); Lymphocytes # 0.8 K/mm3 (0.7-4.5); Lymphocytes % 5.6 % (10-50); Mean Corpuscular Hemoglobin 33.6 pg (27.0-31.2); Mean Corpuscular Volume 105.2 fl (81-99); Mean Platelet Volume 8.9 fl (7.4-10.4); Monocytes # 0.7 K/mm3 (0.1-1.0); Monocytes % 4.8 % (1.7-9.3); Neutrophils % 88.7 % (37.0-80.0); Platelet Count 398 K/mm3 (142-424); Red Blood Count 4.32 M/mm3 (4.20-5.40); Red Cell Distribution Width 17.3 % (11.5-17.5); White Blood Count 13.6 K/mm3 (4.8-10.8)
[2023-01-25 13:57] LABS: MANUAL DIFFERENTIAL MANUAL DIFFERENTIAL (MANUAL DIFF)
[2023-01-25 14:08] LABS: Alanine Aminotransferase 22 U/L (12-78); Albumin Level 4.5 g/dl (3.5-5.0); Albumin/Globulin Ratio 1.7 (1.1-1.8); Alkaline Phosphatase 95 U/L (38-126); Anion Gap 13.4 mEq/L (5-15); Aspartate Amino Transferase 37 U/L (14-36); Bilirubin,Total 0.6 mg/dl (0.2-1.3); Blood Urea Nitrogen 24 mg/dl (7-17); Calcium 9.1 mg/dl (8.4-10.2); Carbon Dioxide 29 mmol/L (22.0-30.0); Chloride 97 mmol/L (98-107); Creatine Kinase 34 U/L (30-135); Estimated Glomerular Filt Rate 85 ml/min (>60); GFR (African American) 103 ML/MIN (>60); Globulin 2.6 g/dL (1.3-3.2); Glucose 105 mg/dl (74-100); Potassium 4.4 mmoL/L (3.5-5.1); Sodium 135 mmol/L (136-145); Total Protein,Serum 7.1 g/dl (6.3-8.2)
[2023-01-25 14:14] LABS: C-Reactive Protein 1.6 mg/L (0-4)
[2023-01-25 14:21] LABS: Erythrocyte Sedimentation Rate 40 mm/hr (0-30)
[2023-01-25 14:44] LABS: Lymphocytes % 4 % (10-50); Neutrophils % 96 % (42-76); Total Cells Counted 100
[2023-01-25 14:45] LABS: Macrocytosis 1+; Platelet Estimate Normal
[2023-01-27 12:14] LABS: Aldolase 6.2 U/L (3.3-10.3)
== END ==
PROVIDERS: PCP Family Medicine; Visit Provider Internal Medicine Rheumatology
DX: M35.1 Other overlap syndromes (principal); D72.829 Elevated white blood cell count, unspecified; M81.0 Age-related osteoporosis without current pathological fracture; J84.9 Interstitial pulmonary disease, unspecified; Z79.899 Other long term (current) drug therapy; Z79.52 Long term (current) use of systemic steroids
CPT/HCPCS: 36415; 80053; 82085; 82550; 85007; 85025; 85651; 86140

== ENCOUNTER → 2023-02-07 12:57 | Outpatient (CLI) | payer MEDICARE, SELFPAY ==
[2023-02-07 13:40] VITALS: PULSE 87; PULSE 90
== END ==
PROVIDERS: PCP Family Medicine; Visit Provider Internal Medicine Pulmonary Disease
DX: R06.09 Other forms of dyspnea (principal)
CPT/HCPCS: 94060; 94640; 94727; 94729

== ENCOUNTER 2023-04-19 09:07 | Day surgery (SDC) | payer MEDICARE, SELFPAY ==
[2023-04-18 08:17] VITALS: BMI 30.5
[2023-04-19 10:32] VITALS: BP 110/61; PULSE 92; RESP 16; TEMP 36.6; O2SAT 98
[2023-04-19 10:52] VITALS: BP 110/61; PULSE 92; RESP 16; TEMP 36.6; O2SAT 98
[2023-04-19 12:01] LABS: Basophils % 0.2 % (0.1-2.0); Eosinophils # 0.1 K/mm3 (0.0-0.4); Eosinophils % 0.5 % (0.1-12.0); Hematocrit 48.2 % (37.0-47.0); Hemoglobin 15.1 g/dL (12.2-16.2); Lymphocytes # 0.8 K/mm3 (0.7-4.5); Lymphocytes % 5.4 % (10-50); Mean Corpuscular HGB Conc 31.3 g/dL (31.8-35.4); Mean Corpuscular Hemoglobin 32.6 pg (27.0-31.2); Mean Platelet Volume 9.4 fl (7.4-10.4); Monocytes # 0.6 K/mm3 (0.1-1.0); Monocytes % 3.9 % (1.7-9.3); Neutrophils # 13.7 K/mm3 (1.8-7.8); Platelet Count 350 K/mm3 (142-424); Red Blood Count 4.63 M/mm3 (4.20-5.40); Red Cell Distribution Width 16.6 % (11.5-17.5); White Blood Count 15.2 K/mm3 (4.8-10.8)
[2023-04-19 12:05] LABS: MANUAL DIFFERENTIAL MANUAL DIFFERENTIAL (MANUAL DIFF)
[2023-04-19 12:48] LABS: Creatine Kinase 38 U/L (30-135)
[2023-04-19 12:58] LABS: C-Reactive Protein 1.7 mg/L (0-4)
[2023-04-19 13:15] LABS: Erythrocyte Sedimentation Rate 26 mm/hr (0-30)
[2023-04-19 13:25] LABS: Lymphocytes % 2 % (10-50); Microcytosis 1+; Monocytes % 3 % (2-9); Neutrophils % 95 % (42-76); Platelet Estimate Normal; Total Cells Counted 100
[2023-04-19 16:29] LABS: Chol/HDL Ratio 2.8 (1-3.5); Cholesterol 208 mg/dl (140-200); HDL Cholesterol 74 mg/dl (40-60); Triglycerides 202 mg/dl (30-150); VLDL Cholesterol 40 mg/dL (0-40)
[2023-04-19 16:41] LABS: Direct LDL Cholesterol 72.96 mg/dL (100-129)
[2023-04-19 16:48] LABS: Creatinine,Urine Random 55 mg/dL (Not Estab.)
[2023-04-19 16:53] LABS: Microalbumin/Creatinine Ratio 18.7
[2023-04-19 17:01] LABS: Thyroid Stimulating Hormone 1.63 uIU/mL (0.465-4.68)
[2023-04-20 16:24] LABS: Aldolase 11.4 U/L (3.3-10.3)
== END 2023-04-19 10:52 | disposition home or self-care (01) ==
PROVIDERS: PCP Family Medicine; Referring Provider Internal Medicine Rheumatology; Visit Provider Ophthalmology
PROC: (CPT 66821; principal; 2023-04-19 09:00)
DX: E78.5 Hyperlipidemia, unspecified (principal); I10 Essential (primary) hypertension; H26.40 Unspecified secondary cataract
CPT/HCPCS: 66821; 36415; 80061; 82043; 82085; 82550; 82570; 84443; 85007; 85025; 85651; 86140

== ENCOUNTER → 2023-04-21 10:27 | Outpatient (CLI) | payer MEDICARE, SELFPAY ==
[2023-04-21 11:18] LABS: Alanine Aminotransferase 21 U/L (12-78); Albumin Level 3.9 g/dl (3.5-5.0); Albumin/Globulin Ratio 1.6 (1.1-1.8); Alkaline Phosphatase 75 U/L (38-126); Aspartate Amino Transferase 27 U/L (14-36); Bilirubin,Total 0.5 mg/dl (0.2-1.3); Blood Urea Nitrogen 21 mg/dl (7-17); Calcium 8.5 mg/dl (8.4-10.2); Carbon Dioxide 27 mmol/L (22.0-30.0); Chloride 102 mmol/L (98-107); Estimated Glomerular Filt Rate 85 ml/min (>60); GFR (African American) 103 ML/MIN (>60); Globulin 2.4 g/dL (1.3-3.2); Glucose 91 mg/dl (74-100); Sodium 135 mmol/L (136-145); Total Protein,Serum 6.3 g/dl (6.3-8.2)
== END ==
PROVIDERS: PCP Internal Medicine Rheumatology; Visit Provider Family Medicine
DX: Z79.899 Other long term (current) drug therapy (principal)
CPT/HCPCS: 80053

== ENCOUNTER → 2023-05-20 10:55 | Outpatient (CLI) | payer MEDICARE, SELFPAY ==
--- NOTE | 2023-05-20 10:55 | MM_ITS ---
PROCEDURE INFORMATION: Exam: MG Bilateral Screening 3D Mammography Exam date and time: 05/20/2023 11:00 AM Age: 62 years old Clinical indication: Screening mammogram TECHNIQUE: Imaging protocol: Bilateral Screening tomosynthesis and 2D mammography including computer-aided detection (CAD) when performed. COMPARISON: 1. MG MM DIG SCREENING MAMM BI W/CAD 04/30/2022 11:08 AM 2. MG MM DIG SCREENING MAMM BI W/CAD 04/27/2021 10:03 AM 3. MG MM DIG SCREENING MAMM BI W/CAD 04/16/2020 9:33 AM 4. MG DIG MAMM-SCREEN CLARITA 02/20/2019 11:08 AM FINDINGS: MAMMOGRAPHY: Breast composition: There are scattered areas of fibroglandular density. Mass: None. Architectural distortion: No new or suspicious architectural distortion. Calcifications: No new or suspicious calcifications are present Asymmetric density: No new or suspicious asymmetric density is present Skin thickening: None. Axillary adenopathy: None. IMPRESSION: No mammographic evidence of malignancy. Recommend annual screening mammography unless otherwise clinically indicated. ASSESSMENT: BI-RADS category 1: Negative
== END ==
PROVIDERS: PCP Internal Medicine Rheumatology; Visit Provider Family Medicine
DX: Z12.31 Encounter for screening mammogram for malignant neoplasm of breast (principal)
CPT/HCPCS: 77063; 77067

== ENCOUNTER → 2023-07-21 12:43 | Outpatient (CLI) | payer MEDICARE, SELFPAY ==
--- NOTE | 2023-07-21 12:51 | XR_ITS ---
FINAL REPORT CLINICAL HISTORY: LT FOOT PAIN-- no inj poss fx FINDINGS: Left foot Three views were obtained. There is no acute fracture or dislocation. There are mild and moderate degenerative changes. There is deformity of the 3rd metatarsal head which appears chronic. The bones are osteopenic. No soft tissue abnormality is identified. IMPRESSION: Degenerative and chronic appearing findings. Reviewed, Interpreted and Dictated by Federico Coello III, MD Transcribed by Carolina Nicholson Authenticated and [facility]
[2023-07-21 13:34] LABS: Basophils % 0.3 % (0.1-2.0); Eosinophils # 0.1 K/mm3 (0.0-0.4); Eosinophils % 0.7 % (0.1-12.0); Hematocrit 41.8 % (37.0-47.0); Hemoglobin 13.8 g/dL (12.2-16.2); Lymphocytes % 6.5 % (10-50); Mean Corpuscular HGB Conc 32.9 g/dL (31.8-35.4); Mean Corpuscular Hemoglobin 35.1 pg (27.0-31.2); Mean Corpuscular Volume 106.5 fl (81-99); Mean Platelet Volume 8.6 fl (7.4-10.4); Monocytes # 0.9 K/mm3 (0.1-1.0); Monocytes % 5.7 % (1.7-9.3); Neutrophils % 86.8 % (37.0-80.0); Platelet Count 330 K/mm3 (142-424); Red Blood Count 3.92 M/mm3 (4.20-5.40); White Blood Count 14.9 K/mm3 (4.8-10.8)
[2023-07-21 13:50] LABS: MANUAL DIFFERENTIAL MANUAL DIFFERENTIAL (MANUAL DIFF)
[2023-07-21 13:57] LABS: Alanine Aminotransferase 25 U/L (12-78); Albumin Level 3.9 g/dl (3.5-5.0); Albumin/Globulin Ratio 1.4 (1.1-1.8); Alkaline Phosphatase 88 U/L (38-126); Anion Gap 13.7 mEq/L (5-15); Aspartate Amino Transferase 32 U/L (14-36); Bilirubin,Total 0.4 mg/dl (0.2-1.3); Blood Urea Nitrogen 24 mg/dl (7-17); Calcium 9.1 mg/dl (8.4-10.2); Carbon Dioxide 28 mmol/L (22.0-30.0); Chloride 99 mmol/L (98-107); Creatine Kinase 22 U/L (30-135); Estimated Glomerular Filt Rate 73 ml/min (>60); GFR (African American) 88 ML/MIN (>60); Globulin 2.8 g/dL (1.3-3.2); Glucose 104 mg/dl (74-100); Potassium 3.7 mmoL/L (3.5-5.1); Sodium 137 mmol/L (136-145); Total Protein,Serum 6.7 g/dl (6.3-8.2)
[2023-07-21 15:45] LABS: C-Reactive Protein 2.1 mg/L (0-4)
[2023-07-21 17:14] LABS: Erythrocyte Sedimentation Rate 16 mm/hr (0-30)
[2023-07-21 18:29] LABS: Lymphocytes % 4 % (10-50); Monocytes % 5 % (2-9); Neutrophils % 86 % (42-76); Platelet Estimate Normal; RBC Morphology Normal; Total Cells Counted 100
[2023-07-25 21:39] LABS: Aldolase 5.3 U/L (3.3-10.3)
== END ==
PROVIDERS: Internal Medicine Rheumatology; PCP Family Medicine; Visit Provider Family Medicine
DX: M79.672 Pain in left foot (principal); M35.1 Other overlap syndromes; D72.829 Elevated white blood cell count, unspecified; M81.0 Age-related osteoporosis without current pathological fracture; J84.9 Interstitial pulmonary disease, unspecified; Z79.52 Long term (current) use of systemic steroids; Z79.899 Other long term (current) drug therapy
CPT/HCPCS: 36415; 73630; 80053; 82085; 82550; 85007; 85025; 85651; 86140

== ENCOUNTER → 2023-08-18 11:43 | Outpatient (CLI) | payer MEDICARE, SELFPAY ==
--- NOTE | 2023-08-18 11:50 | XR_ITS ---
FINAL REPORT CLINICAL HISTORY: ACUTE COUGH COMPARISON: 06/03/2022 FINDINGS: PA and lateral views of the chest are obtained. There is no prior exam for comparison. Cardiomegaly is present, stable since the prior film of May 2022. There are improved but not resolved bilateral interstitial appearing infiltrates. There is a probable very small pleural effusion present as well. There are multiple thoracic compression fractures, age-indeterminate. IMPRESSION: Cardiomegaly, stable. Improved but not resolved bilateral interstitial appearing infiltrates. There may be a small pleural effusion present as well. Reviewed, Interpreted and Dictated by Keri Schofield MD Transcribed by Noy Salgado Authenticated and [facility]
== END ==
LOC: RAD 11:45
PROVIDERS: PCP Family Medicine; Visit Provider Family Medicine
DX: R05.1 Acute cough (principal)
CPT/HCPCS: 71046

== ENCOUNTER 2023-12-15 11:59 | Outpatient (CLI) | payer MEDICARE, SELFPAY ==
[2023-12-15 12:24] LABS: Microscopic, Urine URINE MICROSCOPIC (MICROSCOPIC)
[2023-12-15 13:12] LABS: Appearance,Urine CLEAR (Clear); Bilirubin,Urine Negative (Negative); Blood, Urine Negative (Negative); Color,Urine YELLOW (Yellow); Glucose,Urine (UA) Negative (Negative); Ketones,Urine Negative (Negative); Leukocyte Esterase,Urine Negative (Negative); Nitrate,Urine Negative (Negative); PH,Urine 6.5 (5.0-8.5); Protein,Urine Negative (Negative); Specific Gravity, Urine <= 1.005 (1.005-1.030); Urobilinogen,Urine 0.2 EU/dl (0.2)
[2023-12-15 13:32] LABS: Chol/HDL Ratio 2.7 (1-3.5); Cholesterol 161 mg/dl (140-200); HDL Cholesterol 60 mg/dl (40-60); Triglycerides 175 mg/dl (30-150); VLDL Cholesterol 35 mg/dL (0-40)
[2023-12-15 13:33] LABS: Alanine Aminotransferase 31 U/L (12-78); Albumin/Globulin Ratio 1.6 (1.1-1.8); Alkaline Phosphatase 91 U/L (38-126); Anion Gap 10.8 mEq/L (5-15); Aspartate Amino Transferase 38 U/L (14-36); Bilirubin,Total 0.8 mg/dl (0.2-1.3); Blood Urea Nitrogen 19 mg/dl (7-17); Calcium 9.1 mg/dl (8.4-10.2); Carbon Dioxide 28 mmol/L (22.0-30.0); Chloride 101 mmol/L (98-107); Creatine Kinase 25 U/L (30-135); Estimated Glomerular Filt Rate 85 ml/min (>60); GFR (African American) 103 ML/MIN (>60); Globulin 2.5 g/dL (1.3-3.2); Glucose 85 mg/dl (74-100); Magnesium 2.2 mg/dl (1.6-2.3); Phosphorous 3.6 mg/dl (2.5-4.5); Potassium 3.8 mmoL/L (3.5-5.1); Sodium 136 mmol/L (136-145); Total Protein,Serum 6.5 g/dl (6.3-8.2)
[2023-12-15 13:36] LABS: Microalbumin/Creatinine Ratio 16.1
[2023-12-15 13:40] LABS: C-Reactive Protein 3.8 mg/L (0-4)
[2023-12-15 13:43] LABS: Creatinine,Urine Random 39 mg/dL (Not Estab.)
[2023-12-15 13:45] LABS: Direct LDL Cholesterol 64.51 mg/dL (100-129)
[2023-12-15 13:45] LABS: Intact Parathyroid Hormone 84.3 pg/mL (7.5-53.5)
[2023-12-15 13:52] LABS: 25-OH Vitamin D, Total 74.7 ng/mL (30-100)
[2023-12-15 14:03] LABS: Bacteria,Urine Trace /lpf; RBC,Urine Occasional #/hpf (0-3)
[2023-12-15 14:04] LABS: Squamous Epithelial Cell,Urine Occasional #/hpf (0-5)
[2023-12-15 14:04] LABS: Thyroid Stimulating Hormone 1.77 uIU/mL (0.465-4.68)
[2023-12-21 10:06] LABS: Miscellaneous Test SCANNED IMAGE
== END 2023-12-15 23:59 ==
LOC: LAB 12:00
PROVIDERS: PCP Family Medicine; Visit Provider Internal Medicine Rheumatology
DX: Z79.899 Other long term (current) drug therapy (principal); M81.0 Age-related osteoporosis without current pathological fracture; E78.5 Hyperlipidemia, unspecified; M35.1 Other overlap syndromes; Z78.0 Asymptomatic menopausal state; J84.9 Interstitial pulmonary disease, unspecified; Z79.52 Long term (current) use of systemic steroids; Z68.30 Body mass index [BMI] 30.0-30.9, adult
CPT/HCPCS: 36415; 80053; 80061; 81001; 82043; 82306; 82330; 82550; 82570; 83735; 83970; 84100; 84443; 86140

== ENCOUNTER 2023-12-20 08:42 | Outpatient (CLI) | payer MEDICARE, SELFPAY ==
[2023-12-20 11:35] LABS: Basophils # 0.1 K/mm3 (0-0.2); Basophils % 0.7 % (0.1-2.0); Eosinophils # 0.1 K/mm3 (0.0-0.4); Eosinophils % 0.5 % (0.1-12.0); Hematocrit 44.6 % (37.0-47.0); Hemoglobin 14.3 g/dL (12.2-16.2); Lymphocytes # 0.6 K/mm3 (0.7-4.5); Lymphocytes % 4.5 % (10-50); Mean Corpuscular HGB Conc 32.1 g/dL (31.8-35.4); Mean Corpuscular Hemoglobin 35.2 pg (27.0-31.2); Mean Corpuscular Volume 109.4 fl (81-99); Mean Platelet Volume 9.3 fl (7.4-10.4); Monocytes # 0.6 K/mm3 (0.1-1.0); Monocytes % 4.1 % (1.7-9.3); Neutrophils # 12.7 K/mm3 (1.8-7.8); Neutrophils % 90.1 % (37.0-80.0); Platelet Count 225 K/mm3 (142-424); Red Blood Count 4.07 M/mm3 (4.20-5.40); Red Cell Distribution Width 17.7 % (11.5-17.5); White Blood Count 14.1 K/mm3 (4.8-10.8)
[2023-12-20 11:37] LABS: MANUAL DIFFERENTIAL MANUAL DIFFERENTIAL (MANUAL DIFF)
[2023-12-20 12:52] LABS: Lymphocytes % 8 % (10-50); Macrocytosis 2+; Monocytes % 2 % (2-9); Neutrophils % 90 % (42-76); Platelet Estimate Normal; Total Cells Counted 100
[2023-12-21 16:22] LABS: Calcium, Ionized 5.1 mg/dL (4.5-5.6)
== END 2023-12-20 23:59 ==
LOC: LAB 08:43
PROVIDERS: PCP Family Medicine; Visit Provider Internal Medicine Rheumatology
DX: M35.1 Other overlap syndromes (principal); Z78.0 Asymptomatic menopausal state; M81.0 Age-related osteoporosis without current pathological fracture; J84.9 Interstitial pulmonary disease, unspecified; Z79.899 Other long term (current) drug therapy; Z79.52 Long term (current) use of systemic steroids
CPT/HCPCS: 36415; 82330; 85007; 85025

== ENCOUNTER 2024-01-19 09:59 | Outpatient (CLI) | payer MEDICARE, SELFPAY ==
[2024-01-19] MEDS: ALBUTEROL 0.083% 2.5 MG/3 ML NEB IH (10:54)
--- NOTE | 2024-01-19 10:54 | PC.NURSE ---
PFT complete without incident. Albuterol 0.0983
--- NOTE | 2024-01-19 11:00 | PC.NURSE ---
PFT completed without incident. Albuterol 0.083% given via HHN, per written protocol, Pt tolerated tx well.
== END 2024-01-19 23:59 ==
LOC: RT 10:00
PROVIDERS: PCP Family Medicine; Visit Provider Internal Medicine Pulmonary Disease
DX: R06.09 Other forms of dyspnea (principal)
CPT/HCPCS: 94060; 94726; 94729

== ENCOUNTER 2024-03-02 09:25 | Outpatient (CLI) | payer MEDICARE, SELFPAY ==
--- NOTE | 2024-03-02 09:34 | CA_ITS ---
APPROVED REPORT EXAM: Comprehensive 2D, Doppler, and color-flow Echocardiogram Condemnation Engineer: Tatiana Mcguire CRT Ht: 5 ft 4 in Wt: 179lbs BSA: 1.87 BP: 103/65 mmHg Indications: pulmonary fibrosis, gerd, hx covid, htn, hld, sob 2D Dimensions LA Volume 53.00 mL LA Volume Index 28.34 mL/m2 (M/F) 16-34 M-Mode Dimensions RVDd 2.82 cm (0.9-2.6) LA Diam 2.33 cm (1.9-4.0) LVDd 4.19 cm (3.5-5.7) LVDs 3.26 cm (3.5-5.7) IVSd 1.57 cm (0.6-1.1) PWd 1.41 cm (0.6-1.1) EF (Teich) 45.20% FS 22.20% EDV (Teich) 78.10 mL TAPSE 2.59 (<1.7) ESV (Teich) 42.80 mL LV Diastology E Decel Time 197 (160-240 msec) E/A Ratio 0.8 MED A' 11.50 cm/s LAT A' 11.30 cm/s Aortic Valve AO Peak GR. 7.20 mmHg Mitral Valve MV E Max Jhony. 59.0 (40-130 cm/s) MV A Velocity 77.0 (40-130 cm/s) E/A Ratio 0.77 MV PHT 58.0 ms Pulmonary Valve PV Peak Velocity 87.0 (50-150 cm/s) Tricuspid Valve TR P. Velocity 138.00 cm/s RAP Estimate 10.00 mmHg RVSP 17.70 mmHg Left Ventricle The left ventricle is normal size. The left ventricular systolic function is normal. The left ventricular ejection fraction is within the normal range. There is increased LV wall thickness. Regional wall motion cannot be accurately estimated due to technically difficult study. LVEF is 55%. Right Ventricle The right ventricle is mildly to moderately dilated. The right ventricular systolic function is normal. TAPSE 2.6 cm. Atria The left atrium is grossly normal in size. The right atrium is not well-visualized. The interatrial septum is not well-visualized. Aortic Valve The aortic valve is mildly thickened. There is no aortic valvular stenosis. No aortic regurgitation is present. Mitral Valve The mitral valve leaflets are mildly thickened. No evidence of mitral valve stenosis. There is no mitral valve regurgitation noted. Tricuspid Valve The tricuspid valve leaflets are thin and pliable. Trace tricuspid regurgitation. There is insufficient TR jet to estimate RVSP. Pulmonic Valve The pulmonic valve is not well-visualized. Great Vessels The aortic root is not well-visualized. The IVC is not well-visualized. Pericardium There is no pericardial effusion. Other Information Study Quality: Technically Difficult Conclusion Technically difficult study due to poor acoustic windows. Normal LV systolic function. Mild to moderate RV dilation with normal RV function. TAPSE 2.6 cm. No significant valvular stenosis or regurgitation in the visualized valves. Electronically signed by : Lorelei Dias MD 03/06/2024 13:00:56
--- NOTE | 2024-03-02 10:34 | CT_ITS ---
FINAL REPORT TECHNIQUE: The patient was injected with IV contrast. Axial images were obtained through the chest in a PE protocol. 3-D reconstruction images were also performed. Individualized dose reduction techniques using automated exposure control or adjustment of the MA and/or KV according to patient's size were employed. 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 Mediastinal vasculature is adequately opacified. No pulmonary artery filling defects are identified to suggest PE. There is no aortic dissection. There is no axillary adenopathy. There is no hilar or mediastinal adenopathy. The heart size is normal. There is no pericardial or pleural effusion. There is pleural thickening at the lung bases. There is bibasilar scarring and honeycombing at the lung bases, similar to the prior study. Pleural calcification is noted at the left lung base. IMPRESSION: No pulmonary embolus or dissection. Stable abnormalities of the lung bases. Right aortic arch. Reviewed, Interpreted and Dictated by Adryan Oropeza MD Transcribed by Rabia Briggs Authenticated and . [facility]
[2024-03-02 10:36] LABS: Blood Urea Nitrogen 24 mg/dl (7-17); Estimated Glomerular Filt Rate 72 ml/min (>60); GFR (African American) 88 ML/MIN (>60)
[2024-03-02] MEDS: SODIUM CHLORIDE 0.9% 10ML SYR (RAD ONLY) 10 ML IV (11:09)
[2024-03-02] MEDS: IOPAMIDOL-370 (76%);100ML BOTTLE 75 ML IV (11:09)
[2024-03-02] MEDS: 0.9 % SODIUM CHLORIDE 50 ML VIAL IV (11:09)
== END 2024-03-02 23:59 | disposition home or self-care (01) ==
LOC: RT 09:26
PROVIDERS: PCP Family Medicine; Visit Provider Internal Medicine Pulmonary Disease
DX: R06.02 Shortness of breath (principal); J84.9 Interstitial pulmonary disease, unspecified; J84.112 Idiopathic pulmonary fibrosis; I27.20 Pulmonary hypertension, unspecified
CPT/HCPCS: 36415; 71275; 82565; 84520; 93306; Q9967

== ENCOUNTER 2024-06-08 10:25 | Outpatient (CLI) | payer MEDICARE, SELFPAY ==
--- NOTE | 2024-06-08 10:28 | MM_ITS ---
PROCEDURE INFORMATION: Exam: MG Bilateral Screening 3D Mammography Exam date and time: 06/08/2024 10:16 AM Age: 63 years old Clinical indication: Screening examination TECHNIQUE: Imaging protocol: Bilateral Screening tomosynthesis and 2D mammography including computer-aided detection (CAD) when performed. COMPARISON: 1. MG MM DIG SCREENING MAMM BI W/CAD 05/20/2023 11:00 AM 2. MG MM DIG SCREENING MAMM BI W/CAD 04/30/2022 11:08 AM FINDINGS: MAMMOGRAPHY: Breast composition: The breasts are almost entirely fatty. Mass: None. Architectural distortion: None. Calcifications: No suspicious calcifications. Asymmetric density: None. Skin thickening: None. Axillary adenopathy: None. IMPRESSION: No mammographic evidence of malignancy. Annual screening is recommended unless otherwise clinically indicated. ASSESSMENT: BI-RADS Category 1: Negative
== END 2024-06-08 23:59 | disposition home or self-care (01) ==
LOC: RAD 10:25
PROVIDERS: PCP Family Medicine; Visit Provider Family Medicine
DX: Z12.31 Encounter for screening mammogram for malignant neoplasm of breast (principal)
CPT/HCPCS: 77063; 77067

== ENCOUNTER 2024-06-28 13:44 | Outpatient (CLI) | payer MEDICARE, SELFPAY ==
--- NOTE | 2024-06-28 13:49 | CA_ITS ---
FINAL REPORT TECHNIQUE: Real-time imaging was performed of the extracranial carotid arteries in transverse and longitudinal planes, with color duplex evaluation of blood flow velocity. Spectral analysis was performed. The cervical vertebral arteries were also examined. CLINICAL HISTORY: MIGUELINA,HTN,HLD,PRE-OP COMPARISON: None FINDINGS: NASCET technique is utilized for stenosis evaluation. Right carotid system (centimeters/second): CCA: 102 ICA: 109 ECA: 123 Vertebral artery: Antegrade ICA/CCA ratio: 1.17 Mild plaque is identified at the bifurcation. Left carotid system (centimeters/second): CCA: 90 ICA: 131 ECA: 135 Vertebral artery: Antegrade ICA/CCA ratio: 1.64 Mild plaque is identified at the bifurcation. IMPRESSION: Less than 50% stenosis in the cervical carotid arteries bilaterally. Antegrade flow bilateral vertebral arteries. Reviewed, Interpreted and Dictated by Adryan Oropeza MD Transcribed by Noy Salgado Authenticated and . [facility]
== END 2024-06-28 23:59 | disposition home or self-care (01) ==
LOC: RT 13:45
PROVIDERS: PCP Family Medicine; Visit Provider Psychiatry & Neurology Neurology
DX: I65.23 Occlusion and stenosis of bilateral carotid arteries (principal); Z01.818 Encounter for other preprocedural examination
CPT/HCPCS: 93880

== ENCOUNTER 2024-10-17 11:14 | Outpatient (CLI) | payer MEDICARE, SELFPAY ==
[2024-10-17 12:31] LABS: Albumin Level 3.8 g/dl (3.5-5.0); Chloride 97 mmol/L (98-107); Sodium 137 mmol/L (136-145)
[2024-10-17 12:32] LABS: Potassium 3.9 mmoL/L (3.5-5.1)
[2024-10-17 12:34] LABS: Alanine Aminotransferase 32 U/L (12-78); Alkaline Phosphatase 104 U/L (38-126); Anion Gap 12.9 mEq/L (5-15); Aspartate Amino Transferase 45 U/L (14-36); Bilirubin,Total 0.5 mg/dl (0.2-1.3); Carbon Dioxide 31 mmol/L (22.0-30.0); Total Protein,Serum 6.3 g/dl (6.3-8.2)
[2024-10-17 12:35] LABS: Albumin/Globulin Ratio 1.5 (1.1-1.8); Calcium 9.1 mg/dl (8.4-10.2); Globulin 2.5 g/dL (1.3-3.2); Glucose 92 mg/dl (74-100)
[2024-10-17 12:39] LABS: Blood Urea Nitrogen 18 mg/dl (7-17); Estimated Glomerular Filt Rate 72 ml/min (>60); GFR (African American) 88 ML/MIN (>60)
== END 2024-10-17 23:59 | disposition home or self-care (01) ==
LOC: LAB 11:15
PROVIDERS: PCP Family Medicine; Visit Provider Internal Medicine Rheumatology
DX: J84.9 Interstitial pulmonary disease, unspecified (principal); M35.1 Other overlap syndromes; Z78.0 Asymptomatic menopausal state; M25.532 Pain in left wrist; M81.0 Age-related osteoporosis without current pathological fracture; Z79.899 Other long term (current) drug therapy; Z79.52 Long term (current) use of systemic steroids
CPT/HCPCS: 36415; 80053

== ENCOUNTER 2024-11-12 09:50 | Outpatient (CLI) | payer MEDICARE, SELFPAY ==
[2024-11-12 10:18] LABS: Basophils # 0.1 K/mm3 (0-0.2); Eosinophils # 0.2 K/mm3 (0.0-0.4); Eosinophils % 2.6 % (0.1-12.0); Hematocrit 38.4 % (37.0-47.0); Hemoglobin 12.5 g/dL (12.2-16.2); Lymphocytes # 1.4 K/mm3 (0.7-4.5); Lymphocytes % 16.6 % (10-50); Mean Corpuscular HGB Conc 32.6 g/dL (31.8-35.4); Mean Corpuscular Hemoglobin 33.8 pg (27.0-31.2); Mean Corpuscular Volume 103.8 fl (81-99); Mean Platelet Volume 10.6 fl (7.4-10.4); Monocytes # 0.9 K/mm3 (0.1-1.0); Neutrophils # 5.7 K/mm3 (1.8-7.8); Neutrophils % 67.7 % (37.0-80.0); Platelet Count 296 K/mm3 (142-424); Red Cell Distribution Width 15.8 % (11.5-17.5); White Blood Count 8.4 K/mm3 (4.8-10.8)
[2024-11-12 10:28] LABS: Creatinine,Urine Random 26 mg/dL (Not Estab.)
[2024-11-12 10:33] LABS: Microalbumin < 6.000 mg/L (0-16.7)
[2024-11-12 10:41] LABS: Alanine Aminotransferase 22 U/L (12-78); Albumin/Globulin Ratio 1.7 (1.1-1.8); Alkaline Phosphatase 92 U/L (38-126); Anion Gap 12.7 mEq/L (5-15); Aspartate Amino Transferase 30 U/L (14-36); Bilirubin,Total 0.4 mg/dl (0.2-1.3); Blood Urea Nitrogen 23 mg/dl (7-17); Calcium 8.5 mg/dl (8.4-10.2); Carbon Dioxide 25 mmol/L (22.0-30.0); Chloride 103 mmol/L (98-107); Chol/HDL Ratio 2.3 (1-3.5); Cholesterol 149 mg/dl (140-200); Estimated Glomerular Filt Rate 85 ml/min (>60); GFR (African American) 102 ML/MIN (>60); Globulin 2.3 g/dL (1.3-3.2); Glucose 80 mg/dl (74-100); HDL Cholesterol 64 mg/dl (40-60); Potassium 4.7 mmoL/L (3.5-5.1); Sodium 136 mmol/L (136-145); Total Protein,Serum 6.3 g/dl (6.3-8.2); Triglycerides 87 mg/dl (30-150); VLDL Cholesterol 17 mg/dL (0-40)
[2024-11-12 10:41] LABS: Creatine Kinase 38 U/L (30-135)
[2024-11-12 10:52] LABS: C-Reactive Protein 1.7 mg/L (0-4)
[2024-11-12 10:55] LABS: Erythrocyte Sedimentation Rate 21 mm/hr (0-30)
[2024-11-12 11:11] LABS: Thyroid Stimulating Hormone 1.88 uIU/mL (0.465-4.68)
== END 2024-11-12 23:59 | disposition home or self-care (01) ==
LOC: LAB 09:51
PROVIDERS: PCP Family Medicine; Visit Provider Internal Medicine Rheumatology
DX: J84.9 Interstitial pulmonary disease, unspecified (principal); M35.1 Other overlap syndromes; M81.0 Age-related osteoporosis without current pathological fracture; Z79.899 Other long term (current) drug therapy; Z79.52 Long term (current) use of systemic steroids; E78.5 Hyperlipidemia, unspecified; I10 Essential (primary) hypertension; R61 Generalized hyperhidrosis
CPT/HCPCS: 36415; 80053; 80061; 82043; 82550; 82570; 84443; 85025; 85651; 86140

== ENCOUNTER 2025-02-13 11:34 | Day surgery (SDC) | payer MEDICARE, SELFPAY ==
[2025-02-06 14:15] VITALS: BMI 30.9
[2025-02-13 12:03] VITALS: BP 121/93; PULSE 94; RESP 17; TEMP 36.3; O2SAT 94
--- NOTE | 2025-02-13 12:04 | P.HP_ITS ---
History of Present Illness *Admission Date: 02/13/25 *Reason for visit:: Personal history of adenomatous colon polyps *History of present illness: Mrs. Clark is a 64-year-old female who is here for follow-up surveillance colonoscopy secondary to a personal history of adenomatous colon polyps. The examination is deemed medically necessary for surveillance colonoscopy. The patient has been seen, interviewed and examined prior to the procedure by both myself and the anesthesia provider. [facility] Disclaimer: The information contained in this section may have been updated after the lali cm was seen, as this information can be updated by other users. Medical History Pulmonary hypertension Kyphosis Restrictive lung disease UIP (usual interstitial pneumonitis) Mild persistent asthma ILD (interstitial lung disease) Pulmonary fibrosis Shortness of breath Chronic pancreatitis Localized edema Elevated brain natriuretic peptide (BNP) level Cataract GERD (gastroesophageal reflux disease) History of COVID-19 Asthma Scleroderma Rheumatoid arthritis Allergies Hyperlipidemia Hypertension Renal mass Pancreatitis Keratosis Onychodystrophy Callus of foot Acquired hammer toes of both feet Surgical History History of cholecystectomy History of colonoscopy History of wrist replacement History of bilateral hip replacements History of knee replacement total knee replacement Family History Other Breast cancer in female Hypertension Stroke Social History Smoking Status: Never smoker alcohol intake: never substance use type: denies use current occupational status: disabled Travel in the last 8 weeks?: None adopted: No household members: spouse housing: house caffeine: Yes Have you lived/traveled outside US in past 30 days?: No Contact w/someone who lives/traveled outside US past 30 days?: No Exposure to someone with infectious disease in past 14 days?: No Do you have a fever (greater than 100.4 F or 38 C)?: No Have you tested positive for COVID-19?: No Exposed to someone with COVID-19 in past 14 days?: No Do you have a sore throat?: No Do you have a cough?: No Do you have any weakness?: No Do you have any diarrhea?: No Are you experiencing any unusual bleeding?: No Do you have any muscle aches/pain?: No Do you have any abdominal pain?: No Are you experiencing loss of taste or smell?: No Other Medical History Have you received the Flu Vaccine for this season: No Have you received the Pneumonia Vaccine: Yes Review of Systems Review of Systems Review of systems (narrative): Negative *Cardiovascular Comments: Negative *Gastrointestinal Comments: Negative *Genitourinary Comments: Negative *Musculoskeletal Comments: Negative *Neurologic Comments: Negative Meds Home Medications and Allergies Home Medications ?Medication ?Instructions ?Recorded ?Confirmed ?Type famotidine 20 mg tablet 20 mg PO HS GERD 05/26/22 02/13/25 History folic acid 1 mg tablet 3 mg PO DAILY Supplement 05/26/22 02/13/25 History albuterol sulfate 90 mcg/actuation 2 inh inhalation QID Breathing 06/03/22 02/13/25 History breath activated powder inhaler problems denosumab 60 mg/mL subcutaneous 60 mg SQ [id number] osteo 09/29/22 02/13/25 Hist ory syringe [id number]-[id number] 2 cap PO TID malabsorption 02/07/23 02/13/25 History 36,000-114,000-180,000 unit capsule,delay rel (Creon) buspirone 10 mg tablet 10 mg PO BID Anxiety #90 tabs 02/28/23 02/13/25 Rx omeprazole 40 mg capsule,delayed 40 mg PO DAILY GERD #90 caps 02/28/23 02/13/25 Rx release fluticasone propionate 50 2 spray intranasal DAILY allergies 04/18/23 02/13/25 History mcg/actuation nasal spray,suspension (Flonase Allergy Relief) methotrexate sodium 2.5 mg tablet 2.5 mg PO WEEKLY Rheumatoid 04/19/23 02/13/25 History Arthritis furosemide 40 mg tablet 40 mg PO DAILY Fluid #90 tabs 06/27/23 02/13/25 Rx metoclopramide HCl 10 mg tablet 10 mg PO BID bowels #180 tabs 06/27/23 02/13/25 Rx prednisone 5 mg tablet 5 mg PO DAILY 07/01/23 02/13/25 History lisinopril 10 mg tablet See Rx Instructions .Route 02/02/24 02/13/25 Rx .COMPLEX #90 tabs montelukast 10 mg tablet See Rx Instructions .Route 02/02/24 02/13/25 Rx .COMPLEX #90 tabs verapamil 80 mg tablet See Rx Instructions .Route 02/02/24 02/13/25 Rx .COMPLEX #90 tabs atorvastatin 40 mg tablet See Rx Instructions .Route 05/28/24 02/13/25 Rx .COMPLEX #45 tabs New Prescriptions to Start Prescriptions: Allergies Allergy/AdvReac Type Severity Reaction Status Date / Time Penicillins Allergy Mild Rash Verified 02/13/25 11:57 Exam *Routine HEENT Exam Head: Present normocephalic Eye: Present EOMI and PERRL ENT: Present mucous membranes moist *Routine Neck Exam Neck: Present supple *Routine Respiratory Exam Respiratory: Present CTA bilaterally *Routine Cardiovascular Exam Cardiovascular: Present RRR *Routine Abdominal Exam Abdominal: Present soft and normoactive bowel sounds; Absent tenderness *Routine Rectal Exam Rectal:: deferred *Routine Genitalia Exam Genitalia:: deferred *Routine Extremities Exam Extremities: Absent cyanosis, clubbing or edema *Routine Skin Exam Skin: Present warm; Absent rash *Routine Neurological Exam Neurological: Present alert and oriented X3 Assessment and Plan *Assessment and plan (1) Personal history of adenomatous and serrated colon polyps: Status: Acute Category: Medical Code(s): Z86.0101 - Personal history of adenomatous and serrated colon polyps Plan A/P: 1. Personal history of adenomatous colon polyps is the preprocedural diagnosis. The patient will be anesthetized/sedated using MAC sedation. The patient has been seen and examined. Cardiac and lung assessment prior to the examination is stable. Proceed with planned surveillance colonoscopy.
--- NOTE | 2025-02-13 12:13 | P.PNANES_ITS ---
[facility] Disclaimer: The information contained in this section may have been updated after the patient was seen, as this information can be updated by other users. Medical History Pulmonary hypertension Kyphosis Restrictive lung disease UIP (usual interstitial pneumonitis) Mild persistent asthma ILD (interstitial lung disease) Pulmonary fibrosis Shortness of breath Chronic pancreatitis Localized edema Elevated brain natriuretic peptide (BNP) level Cataract GERD (gastroesophageal reflux disease) History of COVID-19 Asthma Scleroderma Rheumatoid arthritis Allergies Hyperlipidemia Hypertension Renal mass Pancreatitis Keratosis Onychodystrophy Callus of foot Acquired hammer toes of both feet Surgical History History of cholecystectomy History of colonoscopy History of wrist replacement History of bilateral hip replacements History of knee replacement Family History Other Breast cancer in female Hypertension Stroke Social History Smoking Status: Never smoker alcohol intake: never substance use type: denies use current occupational status: disabled Travel in the last 8 weeks?: None adopted: No household members: spouse housing: house caffeine: Yes Have you lived/traveled outside US in past 30 days?: No Contact w/someone who lives/traveled outside US past 30 days?: No Exposure to someone with infectious disease in past 14 days?: No Do you have a fever (greater than 100.4 F or 38 C)?: No Have you tested positive for COVID-19?: No Exposed to someone with COVID-19 in past 14 days?: No Do you have a sore throat?: No Do you have a cough?: No Do you have any weakness?: No Do you have any diarrhea?: No Are you experiencing any unusual bleeding?: No Do you have any muscle aches/pain?: No Do you have any abdominal pain?: No Are you experiencing loss of taste or smell?: No [facility] Anesthesia Checklist Patient Identification Patient Identification: Arm Band and Verbal (Name & ) Structural Data Admitted From: Home Planned Operative Procedure/s: colonscopy Consent for Planned Operative Procedure(s) Verified: Yes Verified Documents: Surgical Consent and History and Physical NPO Status Verified Time NPO: 00:00 Additional verifications Patient : No Anesthesia Reactions: No Previous Colonoscopy: Yes Airway Assessment Mallampati Score:: Class II Neurological Assessment Level of Consciousness: Awake, Alert and Appropriate Anesthesia Plan Anesthesia Risk discussed: Yes Anesthesia Plan: Verified ASA Class: III Anesthesia Type: MAC
--- NOTE | 2025-02-13 12:24 | HMH.PROCNOTE ---
[facility] Procedure Note Date: 02/13/25 Time: 12:40 Procedure Note:: Colonoscopy Procedure Report: Colonoscopy Endoscopist: Talib De Paz II, MD Referring physician: Sandoval Tuttle MD Date of Procedure: February 13, 2025 Equipment: Olympus 190 variable stiffness pediatric colonoscope Sedation: MAC sedation Indication: Mrs. Clark is a 64-year-old female who is here for follow-up surveillance colonoscopy secondary to a personal history of adenomatous colon polyps. The patient did have a colonoscopy in August 2022 and had 3 polyps (tubular adenomas x 3) which were removed. She was given 2 or 3-year surveillance interval. She reports no abdominal pain, weight loss, change in her bowel habits or rectal bleeding. She reports no family history of colon cancer. The patient has had recurrent pancreatitis and has had cholecystectomy. Her endoscopic ultrasound has shown some pancreatic atrophy and honeycombing with some lobularity consistent with chronic pancreatitis. Her IgG 4 subclass was 18 (normal). 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 Procedure: Prior to the procedure, a history and physical exam was performed, and patient's medications and allergies were reviewed. The risks, benefits and alternatives of the sedation and procedure were discussed with the patient. All questions were answered and informed consent was obtained. The patient was brought to the procedure room. Patient identification and proposed procedure were verified by the physician and the nurse. The patient was placed in a left lateral decubitus position and the scope was passed under direct vision. Throughout the procedure, the patient's blood pressure, pulse, and oxygen saturations were monitored continuously. The colonoscopy was accomplished without difficulty. The patient tolerated the procedure well. Findings: On digital rectal examination there was normal rectal tone. There were no external hemorrhoids. The colonoscope was introduced through the anal canal to the rectum and advanced to the cecum. The ileocecal valve and appendiceal orifice were identified. The scope was advanced a short distance into the ileum which appeared grossly normal. The scope was then withdrawn into the colon. The cecum, ascending and transverse colon and mucosa were grossly normal. There were scattered diverticuli throughout the descending and sigmoid colon (LEFT colon). The rectum itself was normal. Upon retroflexion within the rectum there were grade 1-2 internal hemorrhoids. The preparation was excellent throughout with [place] Preparation Score of 9. The cecal time was 10 minutes. Impression: 1. Left-sided diverticulosis 2. Grade 1-2 internal hemorrhoids Plan: The patient will not require surveillance colonoscopy again for 10 years by ACS guidelines. I would encourage psyllium fiber supplementation on a long-term daily maintenance basis.
[2025-02-13 12:41] VITALS: BP 98/70; PULSE 85; RESP 16; TEMP 36.4; O2SAT 98
[2025-02-13 12:51] VITALS: BP 99/59; PULSE 96; RESP 16; O2SAT 99
[2025-02-13 13:01] VITALS: BP 115/64; PULSE 85; RESP 16; O2SAT 97
[2025-02-13 13:11] VITALS: BP 118/55; PULSE 86; RESP 16; O2SAT 97
== END 2025-02-13 13:11 | disposition home or self-care (01) ==
PROVIDERS: PCP Family Medicine; Visit Provider Internal Medicine Gastroenterology
PROC: 0DJD8ZZ Inspection of Lower Intestinal Tract, Via Natural or Artificial Opening Endoscopic (ICD-10-PCS; CPT 45378; principal; 2025-02-13 13:00)
DX: Z12.11 Encounter for screening for malignant neoplasm of colon (principal); Z86.0101 Personal history of adenomatous and serrated colon polyps; K86.1 Other chronic pancreatitis; K57.30 Diverticulosis of large intestine without perforation or abscess without bleeding; K64.8 Other hemorrhoids
CPT/HCPCS: G0105

== ENCOUNTER 2025-02-26 11:16 | Outpatient (CLI) | payer MEDICARE, SELFPAY ==
--- OUTSIDE RECORDS SUMMARY | 2025-02-26 11:19 | XMS_ITS ---
Author Organization Unknown Medications Date Medication Dosage DosageUnit StartDate StopDate StopReason Active DoseQuantity DoseUnit Dispense DispenseUnit Refills NdcCode DrugCode PharmacyId IsPrescription MappedMedication Srcstatus 05/02 00:00 :00 Albuterol Sulfate (2.5 MG/3ML) 0.083% Nebulizatio n Solution 08/18/2023 00:00:00 0 50 1 [id number] 7 052 P Discontinu ed 10/31 00:00 :00 Atorvastati n Calcium 20 MG Tablet 1 000 06201 910 Continue 10/31 00:00 :00 Atorvastati n Calcium 20 MG Tablet 1 90 2 000 47111 910 Taking 10/09 00:00 :00 Atorvastati n Calcium 20 MG Tablet 1 90 2 000 14750 910 Taking 08/10 00:00 :00 Atorvastati n Calcium 20 MG Tablet 1 90 2 000 39344 910 Taking 05/02 00:00 :00 Atorvastati n Calcium 20 MG Tablet 1 90 2 000 03154 910 Taking 10/31 00:00 :00 Benzonatate 200 MG Capsule 08/10/2024 00:00:00 0 30 1 8109375 3 205 P Discontinu ed 10/09 00:00 :00 Benzonatate 200 MG Capsule 08/10/2024 00:00:00 1 30 1 1608720 3 205 P Taking 08/10 00:00 :00 Benzonatate 200 MG Capsule 08/10/2024 00:00:00 1 30 1 9652813 3 205 P Start 10/31 00:00 :00 busPIRone HCl 10 MG Tablet 1 180 Tablet 1 71465413 401 Taking 10/09 00:00 :00 busPIRone HCl 10 MG Tablet 1 180 Tablet 1 37715380 401 Taking 09/13 00:00 :00 busPIRone HCl 10 MG Tablet 1 180 Tablet 1 14552529 401 Start 09/13 00:00 :00 busPIRone HCl 10 MG Tablet 0 180 Tablet 1 52660693 401 Stop 08/10 00:00 :00 busPIRone HCl 10 MG Tablet 1 180 Tablet 1 41009235 401 Taking 05/02 00:00 :00 busPIRone HCl 10 MG Tablet 1 180 Tablet 1 95988245 401 Taking 04/19 00:00 :00 busPIRone HCl 10 MG Tablet 1 180 Tablet 1 27960984 401 Start 04/19 00:00 :00 busPIRone HCl 10 MG Tablet 0 180 Tablet 2 01712726 401 Stop 10/31 00:00 :00 Centrum Silver Ultra Womens - Tablet 10/24/2013 00:00:00 1 90 3 9711592 5 664 Taking 10/09 00:00 :00 Centrum Silver Ultra Womens - Tablet 10/24/2013 00:00:00 1 90 3 8370200 5 664 Taking 08/10 00:00 :00 Centrum Silver Ultra Womens - Tablet 10/24/2013 00:00:00 1 90 3 7131832 5 664 Taking 05/02 00:00 :00 Centrum Silver Ultra Womens - Tablet 10/24/2013 00:00:00 1 90 3 5862245 5 664 Taking 05/02 00:00 :00 Colchicine 0.6 MG Tablet 07/21/2023 00:00:00 0 30 0 5612374 0 801 P Discontinu ed 10/31 00:00 :00 Famotidine 20 MG Tablet 1 610700 72 860 Taking 10/09 00:00 :00 Famotidine 20 MG Tablet 1 134344 72 860 Taking 08/10 00:00 :00 Famotidine 20 MG Tablet 1 635454 72 860 Taking 05/02 00:00 :00 Famotidine 20 MG Tablet 1 153717 72 860 Taking 10/31 00:00 :00 Fluticasone Propionate 50 MCG/ACT Suspension 1 16 2 1991677 7 099 P Taking 10/09 00:00 :00 Fluticasone Propionate 50 MCG/ACT Suspension 1 16 2 6677001 7 099 P Taking 08/10 00:00 :00 Fluticasone Propionate 50 MCG/ACT Suspension 1 16 2 4547689 7 099 P Taking 05/02 00:00 :00 Fluticasone Propionate 50 MCG/ACT Suspension 1 16 2 3277967 7 099 P Taking 03/16 00:00 :00 Fluticasone Propionate 50 MCG/ACT Suspension 1 16 2 4355455 7 099 P Unknown Status 10/31 00:00 :00 Folic Acid 1 MG Tablet 1 9916491 2 461 Taking 10/09 00:00 :00 Folic Acid 1 MG Tablet 1 5647844 2 461 Taking 08/10 00:00 :00 Folic Acid 1 MG Tablet 1 9955324 2 461 Taking 05/02 00:00 :00 Folic Acid 1 MG Tablet 1 1895255 2 461 Taking 11/26 00:00 :00 Furosemide 40 MG Tablet 1 90 Tablet 1 6 3078555 310 Start 11/26 00:00 :00 Furosemide 40 MG Tablet 0 877448 56 310 Stop 10/31 00:00 :00 Furosemide 40 MG Tablet 1 967355 56 310 Continue 10/31 00:00 :00 Furosemide 40 MG Tablet 1 90 Tablet 1 6 6051190 310 Taking 10/09 00:00 :00 Furosemide 40 MG Tablet 1 90 Tablet 1 6 8604876 310 Taking 08/10 00:00 :00 Furosemide 40 MG Tablet 1 90 Tablet 1 6 2803912 310 Taking 07/02 00:00 :00 Furosemide 40 MG Tablet 1 90 Tablet 1 6 5456021 310 Start 07/02 00:00 :00 Furosemide 40 MG Tablet 0 90 Tablet 1 6 4414249 310 Stop 05/02 00:00 :00 Furosemide 40 MG Tablet 1 90 Tablet 1 6 8142480 310 Taking 10/31 00:00 :00 Lisinopril 10 MG Tablet 1 431182 40 701 P Continue 10/31 00:00 :00 Lisinopril 10 MG Tablet 1 90 Tablet 0 0 0884849 701 P Taking 10/09 00:00 :00 Lisinopril 10 MG Tablet 1 90 Tablet 0 0 1123065 701 P Taking 08/10 00:00 :00 Lisinopril 10 MG Tablet 1 90 Tablet 0 0 2893748 701 P Taking 05/02 00:00 :00 Lisinopril 10 MG Tablet 1 90 Tablet 0 0 0198512 701 P Taking 02/01 00:00 :00 Lisinopril 10 MG Tablet 1 90 Tablet 0 0 6203930 701 P Unknown Status 10/31 00:00 :00 Loratadine 10 MG Tablet 1 30 736885 67 430 Taking 10/09 00:00 :00 Loratadine 10 MG Tablet 1 30 060199 67 430 Taking 08/10 00:00 :00 Loratadine 10 MG Tablet 1 30 465626 67 430 Taking 05/02 00:00 :00 Loratadine 10 MG Tablet 1 30 370285 67 430 Taking 10/31 00:00 :00 Meclizine HCl 25 MG Tablet 05/02/2024 00:00:00 1 30 0 0875293 7 661 P Taking 10/09 00:00 :00 Meclizine HCl 25 MG Tablet 05/02/2024 00:00:00 1 30 0 8602043 7 661 P Taking 08/10 00:00 :00 Meclizine HCl 25 MG Tablet 05/02/2024 00:00:00 1 30 0 3386408 7 661 P Taking 05/02 00:00 :00 Meclizine HCl 25 MG Tablet 05/02/2024 00:00:00 1 30 0 8382393 7 661 P Start 10/31 00:00 :00 Methotrexat e 2.5 MG Tablet 2013 00:00:00 1 0873047 5 015 Taking 10/09 00:00 :00 Methotrexat e 2.5 MG Tablet 2013 00:00:00 1 3842942 5 015 Taking 08/10 00:00 :00 Methotrexat e 2.5 MG Tablet 2013 00:00:00 1 6589644 5 015 Taking 05/02 00:00 :00 Methotrexat e 2.5 MG Tablet 2013 00:00:00 1 8933170 5 015 Taking 10/31 00:00 :00 Metoclopram yanna HCl 10 MG Tablet 1 180 Tablet 1 01359650 301 Taking 10/09 00:00 :00 Metoclopram yanna HCl 10 MG Tablet 1 180 Tablet 1 92666408 301 Taking 09/13 00:00 :00 Metoclopram yanna HCl 10 MG Tablet 1 180 Tablet 1 39012716 301 Start 09/13 00:00 :00 Metoclopram yanna HCl 10 MG Tablet 0 180 Tablet 1 20078056 301 Stop 08/10 00:00 :00 Metoclopram yanna HCl 10 MG Tablet 1 180 Tablet 1 45781550 301 Taking 05/02 00:00 :00 Metoclopram yanna HCl 10 MG Tablet 1 180 Tablet 1 41647832 301 Taking 04/19 00:00 :00 Metoclopram yanna HCl 10 MG Tablet 1 180 Tablet 1 88708248 301 Start 04/19 00:00 :00 Metoclopram yanna HCl 10 MG Tablet 0 180 Tablet 1 41683224 301 Stop 10/31 00:00 :00 Montelukast Sodium 10 MG Tablet 1 90 Tablet 0 00 750863 806 P Taking 10/09 00:00 :00 Montelukast Sodium 10 MG Tablet 1 90 Tablet 0 00 780250 806 P Taking 08/10 00:00 :00 Montelukast Sodium 10 MG Tablet 1 90 Tablet 0 00 107784 806 P Taking 05/02 00:00 :00 Montelukast Sodium 10 MG Tablet 1 90 Tablet 0 00 476390 806 P Taking 02/01 00:00 :00 Montelukast Sodium 10 MG Tablet 1 90 Tablet 0 00 933308 806 P Unknown Status 05/02 00:00 :00 Nebulizer - Miscellaneo us 08/18/2023 00:00:00 0 1 0 2055048 6 00 P Discontinu ed 11/26 00:00 :00 Omeprazole 40 MG Capsule Delayed Release 1 90 Capsule 1 00432234 710 Start 11/26 00:00 :00 Omeprazole 40 MG Capsule Delayed Release 0 41007280 401 Stop 10/31 00:00 :00 Omeprazole 40 MG Capsule Delayed Release 1 51434521 401 Continue 10/31 00:00 :00 Omeprazole 40 MG Capsule Delayed Release 1 90 1 95572198 401 Taking 10/09 00:00 :00 Omeprazole 40 MG Capsule Delayed Release 1 90 1 57285406 401 Taking 08/10 00:00 :00 Omeprazole 40 MG Capsule Delayed Release 1 90 1 93141313 401 Taking 07/02 00:00 :00 Omeprazole 40 MG Capsule Delayed Release 1 90 1 28084066 401 Start 07/02 00:00 :00 Omeprazole 40 MG Capsule Delayed Release 0 90 0 72654796 401 Stop 05/02 00:00 :00 Omeprazole 40 MG Capsule Delayed Release 1 90 0 56051665 401 P Taking 02/01 00:00 :00 Omeprazole 40 MG Capsule Delayed Release 1 90 0 12658105 401 P Unknown Status 02/01 00:00 :00 Omeprazole 40 MG Capsule Delayed Release 1 90 1 64026970 401 Start 02/01 00:00 :00 Omeprazole 40 MG Capsule Delayed Release 0 23100866 401 Stop 10/31 00:00 :00 predniSONE 5 MG Tablet 1 4891393 2 825 Taking 10/09 00:00 :00 predniSONE 5 MG Tablet 1 4920571 2 825 Taking 08/10 00:00 :00 predniSONE 5 MG Tablet 1 1547289 2 825 Taking 05/02 00:00 :00 predniSONE 5 MG Tablet 1 9082913 2 825 Taking 10/31 00:00 :00 Promethazin e-DM 6.25-15 MG/5ML Syrup 10/09/2024 00:00:00 1 240 ml 8471596 5 701 P Taking 10/31 00:00 :00 Promethazin e-DM 6.25-15 MG/5ML Syrup 08/10/2024 00:00:00 0 473 mL 1 3080881 5 701 P Discontinu ed 10/09 00:00 :00 Promethazin e-DM 6.25-15 MG/5ML Syrup 10/09/2024 00:00:00 1 240 ml 9008939 5 701 P Start 10/09 00:00 :00 Promethazin e-DM 6.25-15 MG/5ML Syrup 08/10/2024 00:00:00 1 473 mL 1 1923444 5 701 P Taking 08/10 00:00 :00 Promethazin e-DM 6.25-15 MG/5ML Syrup 08/10/2024 00:00:00 1 473 mL 1 2639820 5 701 P Start 10/31 00:00 :00 Symbicort 80-4.5 MCG/ACT Aerosol 1 3 4 63657870 220 P Taking 10/09 00:00 :00 Symbicort 80-4.5 MCG/ACT Aerosol 1 3 4 64073078 220 P Taking 08/10 00:00 :00 Symbicort 80-4.5 MCG/ACT Aerosol 1 3 4 39937154 220 P Taking 05/02 00:00 :00 Symbicort 80-4.5 MCG/ACT Aerosol 1 3 4 47211959 220 P Unknown Status 05/02 00:00 :00 Symbicort 80-4.5 MCG/ACT Aerosol 1 3 4 65096840 220 P Taking 10/31 00:00 :00 Verapamil HCl 80 MG Tablet 1 4274866 4 301 P Continue 10/31 00:00 :00 Verapamil HCl 80 MG Tablet 1 90 Tablet 0 005 37717 301 P Taking 10/09 00:00 :00 Verapamil HCl 80 MG Tablet 1 90 Tablet 0 005 94293 301 P Taking 08/10 00:00 :00 Verapamil HCl 80 MG Tablet 1 90 Tablet 0 005 22272 301 P Taking 05/02 00:00 :00 Verapamil HCl 80 MG Tablet 1 90 Tablet 0 005 04362 301 P Taking 02/01 00:00 :00 Verapamil HCl 80 MG Tablet 1 90 Tablet 0 005 48535 301 P Unknown Status 10/31 00:00 :00 Zithromax Z-Juan 250 MG Tablet 10/09/2024 00:00:00 0 1 0 8005529 6 075 P Discontinu ed 10/09 00:00 :00 Zithromax Z-Juan 250 MG Tablet 10/09/2024 00:00:00 1 1 0 8409621 6 075 P Start 08/10 00:00 :00 Zithromax Z-Juan 250 MG Tablet 08/10/2024 00:00:00 1 6 tabs 0 0891457 6 075 P Start
--- OUTSIDE RECORDS SUMMARY | 2025-02-26 11:19 | XMS_ITS | Data Portability ---
Author Organization [place] Hilario [place] [facility]OS[facility] Address [address] [facility] [address] [place] [address] Care Team Providers Care Nurse Private Duty Name Role Phone LONNIE SOLANO Primary Care Provider Assessment Encounter Date Assessment Date Assessment LastModified by Organization Details LastModified Time 08/08/2018 08/08/2018 will hold off on her prolia for a year and await her next dexa scan in 08/2019 smoberly Not available 08/08/2018 14:14:44 03/21/2019 03/21/2019 will hold off on her prolia for a year and await her next dexa scan in 08/2019 smoberly Not available 03/21/2019 16:03:25 10/30/2019 10/30/2019 will hold off on her prolia for a year and await her next dexa scan in 08/2019 smoberly Not available 10/30/2019 15:15:23 Plan of Treatment Reminders Order Date Submit Date Provider Last Modified By Organization Details Last Modified Time Details Appointments None recorded. Lab ALT (alanine aminotrans ferase), serum or plasma 2019 020 [facility] (Lab), [address], [place], [address], 0 15:33:22 AST/SGOT (aspartate aminotrans ferase), serum or plasma 2019 020 [facility] (Lab), [address], [place], [address], 0 15:33:09 CBC w/ auto diff 2019 020 [facility] (Lab), [address], [place], [address], 0 15:34:33 creatinine , serum or plasma 2019 020 [facility] (Lab), [address], [place], [address], 0 15:32:57 ESR (erythrocy te sedimentat ion rate), blood 2019 020 [facility] (Lab), [address], [place], [address], 0 15:34:22 ALT (alanine aminotrans ferase), serum or plasma [address] (Lab), [address], [place], [address], 9 10:37:56 AST/SGOT (aspartate aminotrans ferase), serum or plasma [address] (Lab), [address], [place], [address], 9 10:37:56 CBC w/ auto diff [address] (Lab), [address], [place], [address], 9 10:37:56 creatinine , serum or plasma [address] (Lab), [address], [place], [address], 9 10:37:56 ESR (erythrocy te sedimentat ion rate), blood 2018 019 [email or web address] [facility] (Lab), [address], [place], [address], 9 10:37:57 CBC w/ auto diff [address] (Lab), [address], [place], [address], 8 08:10:55 ALT (alanine aminotrans ferase), serum or plasma [address] (Lab), [address], [place], [place], [address], 8 08:10:55 AST/SGOT (aspartate aminotrans ferase), serum or plasma [address] (Lab), [address], [place], [address], 8 08:10:55 CBC w/ auto diff [address] (Lab), [address], [place], [address], 8 08:10:55 creatinine , serum or plasma [address] (Lab), [address], [place], [address], 8 08:10:55 ESR (erythrocy te sedimentat ion rate), blood [address] (Lab), [address], [place], [address], 8 08:10:55 CBC w/ auto diff 05/07/ 2018 05/10/2 018 [email or web address] [facility] (Lab), [address], [place], [address], 8 11:10:12 ALT (alanine aminotrans ferase), serum or plasma [address] (Lab), [address], [place], [address], 8 07:27:32 AST/SGOT (aspartate aminotrans ferase), serum or plasma [address] (Lab), [address], [place], [address], 8 07:27:33 CBC w/ auto diff [address] (Lab), [address], [place], [address], 8 07:27:33 creatinine , serum or plasma [address] (Lab), [address], [place], [address], 8 07:27:33 ESR (erythrocy te sedimentat ion rate), blood [address] (Lab), [address], [place], [address], 8 07:27:33 Referral hand therapy referral [address] [facility], [address], [address], [place], [address], 8 09:52:32 Procedures None recorded. Surgeries None recorded. Imaging DEXA 2019 020 [facility] (X-Ray), [address], [place], [address], 0 13:46:38 Medication Orders prednisone 5 mg tablet 2019 020 [facility]FACE [facility], [address] [place] [address], [address], 0 15:11:20 methotrexa te sodium 2.5 mg tablet 2019 020 [facility]FACE [facility], [address] [place] [address], [address], 0 15:11:20 prednisone 5 mg tablet 2018 019 INTERFACE [facility], [address] [place] [address], [facility] [address], [place], [id number], 9 16:03:05 methotrexa te sodium 2.5 mg tablet 2017 018 smoberly [facility], [address], [address], [place], [place], [id number], 8 14:23:28 prednisone 5 mg tablet 2017 018 smoberly [facility], [address] [facility] [place], [address], [place], [place], [id number], 8 14:23:28 Prolia 60 mg/mL subcutaneo us syringe 2017 018 [facility], [address] [place] [address], [address], 9 15:45:53 methotrexa te sodium 2.5 mg tablet 2017 018 INTERFACE [facility], [address] [place] [address], [address], [place], [place], [id number], 8 13:57:15 prednisone 5 mg tablet 2017 018 INTERFACE [facility], [address] [place] [address], [id number], 8 13:57:15 Patient TargetsNo targets recorded. Patient Instructions Encounter Date Encounter Id Patient Instructions Last Modified By Organization Details Last Modified Time 02/13/2018 [id number] eating healthy foods: care instructions [place] Not available 02/13/2018 13:57:13 scleroderma: car e instructions smoberly Not available 02/13/2018 13:57:13 05/16/2018 [id number] osteoporosis: care instructions smoberly Not available 05/16/2018 18:39:01 08/08/2018 [id number] eating healthy foods: care instructions smoberly Not available 08/08/2018 14:23:28 scleroderma: car e instructions smoberly Not available 08/08/2018 14:23:28 03/21/2019 [id number] eating healthy foods: care instructions smoberly Not available 03/21/2019 16:03:04 scleroderma: car e instructions smoberly Not available 03/21/2019 16:03:04 10/30/2019 [id number] osteoporosis: care instructions smoberly Not available 10/30/2019 15:11:16 eating healthy foods: care instructions smoberly Not available 10/30/2019 15:11:16 scleroderma: car e instructions smoberly Not available 10/30/2019 15:11:17 Reason for Referral Hand Therapy Referral for Se ronegative rheumatoid arthritis bilateral hand deformities/scleroderma/RA Referring Physician: Sima Martinez, Rheumatology, Encounter Date: 02/13/2018 Results Created Date Observation Date Name Description Value Unit Range Abnormal Flag Note LastModifiedBy Organization Detail LastModifiedTime 11/14/19 20 11/13/2019 DEXA No observ ation record ed. [facility] [address], [id number], 11/14/2019 18:20:29 Result Notes None recorded. Problems Name Problem SNOMED Code Status Onset Date Resolution Date Notes Provider Name and Address Organization Details Recorded Time Systemic sclerosis 74204623 Active 2014 From Automated Load;Provi evonne: Schmid, Orin;Stat us: Active Not Available [facility] 6 05:17:28 Seronegat apryl rheumatoi d arthritis 527057650 Active 2014 From Automated Load;Provi evonne: Schmid, Orin;Stat us: Active Not Available [facility] 6 05:17:28 Osteoporo sis 06222600 Active 2015 From Automated Load;Provi evonne: [place], Sima;St atus: Active Not Available [facility] 6 05:17:28 Problem Notes None recorded. Procedures Surgical History None recorded. Imaging Results Imaging Date Name Status LastModified by Organizatio n Details LastModified Time 11/13/2019 DEXA completed [address], [id number], 11/14/2019 18:20:29 Procedure Notes None recorded. Medical Equipment None Reported. Allergies Allergen ID Allergen Name Allergen Category Reaction Reaction Severity Criticality Documentation Date Start Date Code Code System Note Provider Name and Address Organization Details Recorded Time 988997 Product containin g penicilli n (product) medicatio n Not available Not available Not available 09/03/20162010 56798 8001 SNOMED Comme nt: Creat ed By: Romeo sánchezCre ated Date: 2010 9:28: 34 AM; Not Available [facility] 6 04:19:29 Medications Name Sig Start Date Stop Date Status Note LastModified by Organization Details LastModified Time Singulair 10 mg tablet Daily active Frequenc y: daily;Me dication Descript ion: monteluk ast; Dosage:1 ; Route:or al; refills: 5; Quantity :30 tablet Not Available Not Available Not Available Evista 60 mg tablet Daily 2011 active Duration : 90 days;Julio Cesar quency: daily;Me dication Descript ion: raloxife ne; Dosage:1 ; Route:or al; refills: 1; Quantity :90 tablet Not Available Not Available Not Available methotrex ate 2.5 mg tablet Every week 02/10 completed Frequenc y: Every week;Med ication Descript ion: methotre xate; Dosage:a s directed ; Route:or al; refills: 0 Not Available Not Available Not Available pravastat in 40 mg tablet Daily active Frequenc y: daily;Me dication Descript ion: pravasta tin; Route:or al; refills: 0 Not Available Not Available Not Available Claritin 10 mg tablet Daily active Frequenc y: daily;Me dication Descript ion: loratadi ne; Dosage:1 ; Route:or al; refills: 0; Quantity :30 tablet Not Available Not Available Not Available Lasix 40 mg tablet Daily active Duration : 30 days;Julio Cesar quency: daily;Al t Frequenc y: as direct.; Medicati on Descript ion: furosemi de; Dosage:1 ; Route:or al; refills: 5; Quantity :30 tablet Not Available Not Available Not Available lisinopri l 20 mg tablet Bedtime 2010 active Duration : 30 days;Julio Cesar quency: hs;Medic ation Descript ion: lisinopr il; Dosage:1 ; Route:or al; refills: 5; Quantity :30 tablet Not Available Not Available Not Available ondansetr on HCl 4 mg tablet Take 2 tablets twice a day by oral route. 2016 active Not Available Not Available Not Avai lable prednison e 5 mg tablet Take 1 tablet every day by oral route. 2019 active Duration : 90 days;Ins truction s: TAKE DIRECTED DAILY;Fr equency: as direct.; Medicati on Descript ion: predniso ne; Dosage:a s directed ; Route:or al; refills: 3; Quantity :90 tablet Not Available Not Available Not Available Reglan 10 mg tablet Two times a day 2012 active Duration : 90 days;Julio Cesar quency: bid;Alt Frequenc y: as direct.; Medicati on Descript ion: metoclop ramide; Dosage:1 ; Route:or al; refills: 1; Quantity :180 tablet Not Available Not Available Not Available methotrex ate sodium 2.5 mg tablet TAKE 5 TABLETS BY MOUTH WEEKLY 2019 active Not Available Not Available Not Avai lable buspirone 10 mg tablet Two times a day active Frequenc y: bid;Medi cation Descript ion: buspiron e; Route:or al; refills: 0 Not Available Not Available Not Available captopril 50 mg tablet Two times a day active Duration : 30 days;Julio Cesar quency: bid;Medi cation Descript ion: captopri l; Dosage:1 ; Route:or al; refills: 0; Quantity :30 tablet Not Available Not Available Not Available folic acid 1 mg tablet Daily 2015 active Duration : 90 days;Julio Cesar quency: daily;Me dication Descript ion: folic acid; Dosage:2 ; Route:or al; refills: 2; Quantity :180 tablet Not Available Not Available Not Available verapamil 80 mg tablet Two times a day active Frequenc y: bid;Medi cation Descript ion: verapami l; Dosage:2 ; Route:or al; refills: 0 Not Available Not Available Not Available atenolol 50 mg tablet Daily active Duration : 30 days;Julio Cesar quency: daily;Me dication Descript ion: atenolol ; Dosage:1 ; Route:or al; refills: 0; Quantity :30 tablet Not Available Not Available Not Available Prilosec OTC 20 mg tablet,de layed release active Medicati on Descript ion: omeprazo le; Route:or al; refills: 0 Not Available Not Available Not Available Calcium-V itamin D Two times a day active Frequenc y: bid;Medi cation Descript ion: calcium- vitamin D; Route:or al; refills: 0 Not Available Not Available Not Available Symbicort 80 mcg-4.5 mcg/actua tion HFA aerosol inhaler Two times a day active Frequenc y: bid;Medi cation Descript ion: budesoni de-formo terol; Dosage:2 puffs; Route:in halation ; refills: 0 Not Available Not Available Not Available Prolia 60 mg/mL subcutane ous syringe Inject 1 mL by subcutan eous route. 2017 active not currentl y Not Available Not Available Not Available Vitals Date Recorded Body height Body mass index (BMI) Body weight Respiratory rate Heart rate Systolic blood pressure Diastolic blood pressure Provider Name and Address Organization Details Last Updated DateTime 8 165.1 cm 27.8 kg/m2 78252.9 3 g 16 /min 107 /min 111 mm[Hg] 71 mm[Hg] January Patito [facility] 8 13:42:34 Date Recorded Body height Body mass index (BMI) Body weight Respiratory rate Heart rate Systolic blood pressure Diastolic blood pressure Provider Name and Address Organization Details Last Updated DateTime 8 165.1 cm 27.8 kg/m2 70907.9 3 g 18 /min 59 /min 116 mm[Hg] 77 mm[Hg] Nevaeh Andrews [facility] 8 14:00:50 Date Recorded Body height Body mass index (BMI) Body weight Respiratory rate Heart rate Systolic blood pressure Diastolic blood pressure Provider Name and Address Organization Details Last Updated DateTime 9 165.1 cm 30.5 kg/m2 09860.4 g 18 /min 94 /min 98 mm[Hg] 76 mm[Hg] Carlita Guevara [facility] 9 15:44:22 Date Recorded Body height Respiratory rate Heart rate Systolic blood pressure Diastolic blood pressure Provider Name and Address Organization Details Last Updated DateTime 10/30/2019 165.1 cm 18 /min 101 /min 91 mm[Hg] 64 mm[Hg] Marisol Castellon [facility] 0 14:55:10 Social History Question Answer Notes LastModified by [employer] Details LastModified Time Tobacco Smoking Status Never Smoker Tresa morin [facility] 02/10/2017 14:31:18 How Much Tobacco Do You Chew? None [email or web address] Information not available 03/21/2019 What Was The Date Of Your Most Recent Tobacco Screening? 03/21/2019 Information n ot available 11/27/2019 How Much Tobacco Do You Smoke? No [email or web address] Information not available 03/21/2019 How Many Years Have You Smoked Tobacco? 0 Information not available 03/21/2019 Sex: Unknown Functional Status Question Answer Note LastModified by [employer] Details LastModified Time What is your level of alcohol consumption? None [email or web address] Information not available 02/10/2017 Do you or have you ever used smokeless tobacco? Never used smokeless tobacco Information not available 10/30/2019 Do you or have you ever used e-cigarettes or vape? Never used electronic cigarettes [email or web address] Information not available 10/30/2019 Mental Status None recorded. Family History Nothing Reported Notes:Maternal grandmother h ad severe RA Medical History Condition Response Emphysema N COPD N Diabetes N Bleeding Disorder N Arthritis Y Acid Reflux (GERD) Y Asthma Y Heart Disease N Rheumatoid Arthritis Y Hypertension Y Gynecological HistoryNo gynecological history recorded. Obstetrics History GPAL:G 0 P 0 0 0 0 Immunizations Vaccine Type Date Status Note Provider Nam e and Address Organization Details Recorded Time Influenza, split virus, quadrivalent, preservative 8 completed [place] Kel[place] [facility] 03/21/2019 15:46:12 Past Encounters Encounter ID Performer Location Encounter Start Date Encounter Closed Date Diagnosis/Indication Diagnosis SNOMED-CT Code Diagnosis ICD10 Code Diagnosis Note [id number] SIMA MARTINEZ APRN [facility] [address] [address] [place] [address] Osteoporosis 75614407 M81.0 [facility] [phone] [phone] injected one 60mg/1mL syringe [id number] SIMA MARTINEZ APRN [facility]UMATOL [facility] [address] [place] [address] 02/10/2017 13:28:02 02/10/2017 15:20:18 Osteoporosis 19042747 M81.0 needs clearance labs todaynext injection due april 24, 2017 or laterlabs today Nausea 412248277 R11.0 recurring; will have her f/u with pcp Seronegati ve rheumatoid arthritis 673979878 M06.00 fpc medication therapynor mal systemic examWithou t synovitis or dactylitis [id number] SIMA MARTINEZ APRN [facility]OL [address] [address] [place] [address] 04/28/2017 13:37:05 04/28/2017 14:33:24 Osteoporosis 55173532 M81.0 needs clearance labs todaynext injection due april 24, 2017 or laterlabs today [id number] SIMA MARTINEZ APRN [facility] [address] [address] [place] [address] 08/16/2017 13:19:55 08/22/2017 08:27:15 Osteoporosis 98127901 M81.0 needs clearance labs todaynext injection due october 29, 2017needs bone density --requests for it to be done close to hom[facility] today Nausea 118344916 R11.0 recurring; will have her f/u with pcp Seronegati ve rheumatoid arthritis 781788039 M06.00 fpc medication therapysta ble systemic exam Without major synovitis or dactylitis stiff and limited with bony deformity from RA and OA combinatio n snf methotrexate user 7001532052 00 Z79.899 Postmenopa usal osteoporosis 336676520 M81.0 [id number] [place] [address] [place] [address] 1 11/08/2017 13:18:59 11/09/2017 08:59:29 Osteoporosis 63146763 M81.0 needs clearance labs todaynext injection due october 29, 2017needs bone density --requests for it to be done close to [facility] today [id number] SIMA MARTINEZ APRN RHEUMATOL O[facility] [address] [place] [address] 1 02/13/2018 13:21:56 02/13/2018 14:05:56 Systemic sclerosis 11713946 M34.9 Seronegati ve rheumatoid arthritis 192073094 M06.00 fpc medication therapysta ble systemic exam Without major synovitis or dactylitis stiff and limited with bony deformity from RA and OA combinatio n snf methotrexate user 2374235655 00 Z79.899 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 D72.9 elevated wbc count at 16.5 will obtain further assessment [id number] SIMA MARTINEZ APRN RHEUMATOL OGY [address] [place] [address] 1 05/16/2018 12:47:45 05/16/2018 13:29:04 Osteoporosis 73266877 M81.0 needs clearance labs todaynext injection due october 29, 2017needs bone density --requests for it to be done close to [facility] today [id number] SIMA MARTINEZ APRN RHEUMATOL OGY [address] [place] [address] 1 08/08/2018 13:29:44 08/09/2018 07:56:56 Seronegative rheumatoid arthritis 593642239 M06.00 f/u on RA with chronic fpc medication therapyWit hout major synovitis or dactylitis todayconti nues with crippling and bony deformity from RA, systemic sclerosis and OA combinatio ncontinue with mtx and prn prednisone take 5 po once weekly, Systemic sclerosis 17132 008 M34.9 overlap syndrome treated as Ra snf methotrexate user 4009275194 Z79.899 labs reviewed will obtain labs prior to next visit f/u 6 months or sooner White bloo d cell disorder 69188755 D72.9 elevated wbc count at 13.5 from 16.5 will obtain further assessment today all other labs reviewed [id number] SIMA MARTINEZ APRN RHEUMATOL OGY [address] [address] 03/21/2019 15:07:26 03/23/2019 13:21:44 Seronegative rheumatoid arthritis 858179892 M06.00 f/u on RA with chronic fpc medication therapyWit hout major synovitis or dactylitis todayconti nues with crippling and bony deformity from RA, systemic sclerosis and OA combinatio ncontinue with mtx and prn prednisone take 5 po once weekly, Systemic sclerosis 56877 008 M34.9 overlap syndrome treated as Ra snf methotrexate user 6431224085 00 Z79.899 labs reviewed will obtain labs prior to next visit f/u 6 months or sooner [id number] SIMA MARTINEZ APRN RHEUMATOL OGY [address] [place] [address] 10/30/2019 14:15:11 10/30/2019 15:19:58 Seronegative rheumatoid arthritis 282690089 M06.00 f/u on RA with chronic fpc medication therapyWit hout major synovitis or dactylitis todayconti nues with crippling and bony deformity from RA, systemic sclerosis and OA combinatio ncontinue with mtx and prn prednisone take 5 po once weekly, Systemic sclerosis 07868 008 M34.9 overlap syndrome treated as Ra snf methotrexate user 5031091422 Z79.899 labs reviewed will obtain labs prior to next visit f/u 6 months or sooner Osteoporosis 34495773 M8 1.0 needs clearance labs todaynext injection due october 29, 2017needs bone density --requests for it to be done close to homelabs today Health Concerns Section Related Observation LastModified by Organization Detai ls LastModified Time None Recorded Concern Status LastModified by Organization Details LastModified Time None Recorded Advance Directives Directive None Recorded Payers Insurance Date Sequence Insurance Name Policy Number Policy Nieves Covered Member ID Nieves Member ID Guarantor Name 10/30/2019 2 [facility] [id number] David Clark [id number] Mari Lionel Amber 04/28/2020 1 [place] Mari G Amber [id number] Mari G Amber 04/28/2020 2 [place] [id number] 2 David Clark [id number] 2 Mari Clark 10/09/2017 PAYMENT PLAN Mari Clark Notes Date Note Type Note Provider Name and Address Organization Details Recorded Time 02/13/2018 text/html no major flare i n the interim, without interval infection; no s/e from medications; chronic deformities from the scleroderma and RA; having right 5th digit curling; having soa with asthma with the weather; she currently denies bowel or bladder changes, chest pain, rashes, fevers and all others are negative SIMA MARTINEZ APRN [address] [place], [address], [facility] 02/13/2018 14:09:06 08/08/2018 text/html recent flare; to ok 15 mg prednisone one day and cut it off at the pass; she reports she is without interval infection; no s/e from medications; she has bilateral chronic deformities from the scleroderma and RA; having right 5th digit curling; she currently denies bowel or bladder changes, chest pain, soa, rashes, fevers and all others are negative SIMA MARTINEZ APRN [address] [place], [address], [facility] 08/08/2018 14:26:23 03/21/2019 text/html f/u on RA; she h as had some recurring bowel issues; she had a uri since her last visit but so did everyone at home; she reports she is without interval infection; no s/e from medications; she has bilateral chronic deformities from the scleroderma and RA; having right 5th digit curling; she's had multiple joint surgeries; with carlos knee replacement; carlos hips, carlos wrists, fingers and elbows; she currently denies bowel or bladder changes, chest pain, soa, rashes, fevers and all others are negative SIMA MARTINEZ APRN [address] [place], [address], [facility] 03/21/2019 16:07:16 10/30/2019 text/html f/u on RA; she h as had some recurring bowel issues and constipation; she reports she is without interval infection; no s/e from medications; she has bilateral chronic deformities from the scleroderma and RA; having right 5th digit curling; she's had multiple joint surgeries; with carlos knee replacement; carlos hips, carlos wrists, fingers and elbows; she is happy now with her outcome; she is in a wheelchair due to the ramp here at the [facility] but she is walking around 5000 steps daily; she is losing weight with weight watchers; she currently denies bowel or bladder changes, chest pain, soa, rashes, fevers and all others are negative SIMA MARTINEZ APRN [address] [place], [address], [facility] 10/30/2019 15:15:32 OBGyn Episode No OBEpisode recorded.
[2025-02-26 11:55] LABS: Basophils # 0.1 K/mm3 (0-0.2); Basophils % 0.4 % (0.1-2.0); Eosinophils # 0.1 Kmm3 (0.0-0.4); Eosinophils % 0.8 % (0.1-12.0); Hematocrit 40.8 % (37.0-47.0); Immature Granulocytes # 0.12 10^3uL; Immature Granulocytes % 0.9 %; Lymphocytes # 0.8 K/mm3 (0.7-4.5); Lymphocytes % 5.5 % (10-50); Mean Corpuscular HGB Conc 31.9 g/dL (31.8-35.4); Mean Corpuscular Hemoglobin 32.1 pg (27.0-31.2); Mean Corpuscular Volume 100.7 fl (81-99); Monocytes % 7.2 % (1.7-9.3); Neutrophils # 11.8 K/mm3 (1.8-7.8); Neutrophils % 85.2 % (37.0-80.0); Nucleated Red Blood Cells # 0 10^3/uL; Nucleated Red Blood Cells % 0 %; Platelet Count 312 K/mm3 (142-424); Red Blood Count 4.05 M/mm3 (4.20-5.40); Red Cell Distribution Width 17.4 % (11.5-17.5); Red Cell Distribution Width-SD 63.7 fL; White Blood Count 13.8 K/mm3 (4.8-10.8)
[2025-02-26 12:09] LABS: Chloride 101 mmol/L (98-107); Sodium 135 mmol/L (136-145)
[2025-02-26 12:11] LABS: Blood Urea Nitrogen 26 mg/dl (7-17)
[2025-02-26 12:12] LABS: Alanine Aminotransferase 20 U/L (12-78); Alkaline Phosphatase 84 U/L (38-126); Aspartate Amino Transferase 28 U/L (14-36); Bilirubin,Total 0.5 mg/dl (0.2-1.3); Calcium 9.4 mg/dl (8.4-10.2); Carbon Dioxide 28 mmol/L (22.0-30.0); Creatine Kinase 43 U/L (30-135); Estimated Glomerular Filt Rate 72 ml/min (>60); GFR (African American) 87 ML/MIN (>60); Glucose 101 mg/dl (74-100); Total Protein,Serum 6.6 g/dl (6.3-8.2)
[2025-02-26 12:17] LABS: C-Reactive Protein 1.1 mg/L (0-4)
[2025-02-26 12:40] LABS: Erythrocyte Sedimentation Rate 15 mm/hr (0-30)
[2025-02-26 12:41] LABS: 25-OH Vitamin D, Total 40.2 ng/mL (30-100)
[2025-02-26 13:05] LABS: Albumin/Globulin Ratio 1.5 (1.1-1.8); Globulin 2.6 g/dL (1.3-3.2)
== END 2025-02-26 23:59 | disposition home or self-care (01) ==
LOC: LAB 11:18
PROVIDERS: PCP Family Medicine; Visit Provider Internal Medicine Rheumatology
DX: M35.1 Other overlap syndromes (principal); M81.0 Age-related osteoporosis without current pathological fracture; J84.9 Interstitial pulmonary disease, unspecified; Z79.899 Other long term (current) drug therapy; Z79.52 Long term (current) use of systemic steroids
CPT/HCPCS: 36415; 80053; 82306; 82550; 85025; 85651; 86140

== ENCOUNTER 2025-05-01 10:40 | Outpatient (CLI) | payer MEDICARE, SELFPAY ==
--- OUTSIDE RECORDS SUMMARY | 2024-10-09 05:45 | XMS_ITS ---
Author Organization [facility] Address [facility] [address] [place] [phone] Care Team Providers Care Barrel Repairer Name Role Phone Sandoval Tuttle Primary Care Provider [phone] Paulette Moreno Unavailable [phone] Allergies Allergen (clinical drug ingredient) Drug/Non Drug [...] 10/09/2024 Encounters Encounter Location Date Provider Diagnosis [facility] [facility]10 [facility] [address] [phone] 10/09/2024 Paulette Moreno URI (upper respirato ry [...] Up: prn, Reason: Provider Name:Sandoval Kern ry, 05/01/2025 11:30:00 AM, [address] , [place], [place], [phone], Progress Notes * Yuliana PIERCEeDOB: (64 yo F)Acc No.[id number]:10/09/2024 Progress Notes Patient: Mari HILARIO Provider: JEFF Hu :1960 A ge:63 Y S ex:Female Date:10/09/2024 Address:[address] [place], [place] [address] Pcp:Sandoval Tuttle Subjective: * Chief Complaints: * [...] G 2211 Complex e/[place], [address] Flu Test- Nasal Swab, Modifiers: QW , 04604 COVID TEST IN HOUSE, Modifiers: QW , 3074F SYST BP LT 130 MM HG, 3078F DIAST BP < 80 MM HG * Follow Up: p rn * Images: Billing Information: * Visit Code: 98463 Office Visit, Est Pt., Level 3. * Procedure Codes: G2211 Complex e/[place]. [address] Flu Test- Nasal Swab. Modifiers: QW 34313 COVID TEST IN HOUSE. Modifiers: QW 3074F SYST BP LT 130 MM HG. 3078F DIAST BP < 80 MM HG. * Electronic signature of Lynn stuart Tiffanie , TONYA on 05/01/2025 at 10:45 AM EDT Sign off status: Pending * Provider: JEFF Hu Date: 1 Generated for Marci khalil/Octavia/eTransmitting on: 0 05/01/2025 10:45 AM EDT History and Physical Notes * [...]
--- OUTSIDE RECORDS SUMMARY | 2024-10-31 06:00 | XMS_ITS ---
Author Organization [facility] Address [facility] [address] [phone] Care Team Providers Care Central Office Installer Name Role Phone Sandoval Tuttle Primary Care [...] Provider Diagnosis [facility] [address] [phone] 10/31/2024 Sandoval Tuttle HTN (hypertension) I 10 [...] 6 Months, Reason: Provider Name:Sandoval [place] ry, 05/01/2025 11:30:00 AM, [address] [facility] [address], [place], [place], [phone], Progress Notes * Yuliana PIERCEeDOB: (64 yo F)Acc No.[id number]:10/31/2024 Progress Notes Patient: Mari HILARIO Provider: Eliot Tuttle M.D. :1960 A ge:63 Y S ex:Female Date:10/31/2024 Address:[address] [place], [place] [phone] Subjective: * Chief Complaints: * 1 . [...] * Images: Billing Information: * Visit Code: 97586 Office Visit, Est Pt., Level 4. * Procedure Codes: G2211 Complex e/m visit add on. * Electronic signature of Alice Tuttle MD on 05/01/2025 at 10:46 AM EDT Sign off status: Pending * Provider: Eliot Tuttle M.D. Date: 0 10/31/2024 Generated for Marci khalil/Octavia/Holly on: 0 05/01/2025 10:46 AM EDT History and Physical Notes * [...]
--- OUTSIDE RECORDS SUMMARY | 2025-05-01 10:45 | XMS_ITS | Clinical Summary ---
Author Organization [facility] Address [address] [place] [address] Care Team Providers Care Employment Recruiter Name Role Phone Unavailable Primary Care Provider Unavailabl e Social History Tobacco Use Types Packs/Day Years Used Date Smoking Tobacco: Never Assessed Comments Unknown Sex and Gender Information Value Date Recorded Sex Assigned at Not on file Legal Sex Female 8:39 PM EDT Gender Identity Not on file Sexual Orientation Not on file Plan of Treatment Health Maintenance Due Date Last Done Comments [facility]-Depression Screening 1960 [facility]-/Child/Adol SDOH Screenings 1960 [facility]- SDOH Screenings 1978 [facility]-Adult SDOH Screenings 1978 [facility]-DTaP,Tdap,and Td Vaccines (1 - Tdap) 12/19/1979 CT Colonography 2005 Colonoscopy 2005 FIT-DNA 2005 FIT 2005 FOBT 2005 Sigmoidoscopy 2005 [facility]-Colorectal Cancer Screening 2005 [facility]-Pneumococcal Vaccine: 50+ Years (1 of 1 - PCV) 2010 [facility]-Zoster Vaccines (1 of 2) 2010 [facility]-Pap Smear 03/18/2011 03/18/2008, 02/07, 02/05/2005, Additional history exists [facility]-Cervical Cancer Screening 03/18/2013 [facility]-HPV/Cotest 03/18/2013 03/18/2008, 02/07, 02/05/2005, Additional history exists [id number] Vaccine ( - 2023- season) 2024 06/08/2021, 01/09/2021, 12/12/2020 [facility]-Influenza Vaccine (#1) 06/10/202506/24, 07/10/2020, 08/03/2019, Additional history exists [facility]-RSV Vaccine: 60+ Years or (1 - 1-dose 75+ series) 12/19/2035 HPV Vaccines Aged Out No longer eligi ble based on patient's age to complete this topic [facility]-HIB Vaccines Aged Out No longer e ligible based on patient's age to complete this topic [facility]-Hepatitis A Vaccines Aged Out No longer eligible based on patient's age to complete this topic [facility]-IPV Vaccines Aged Out No longer e ligible based on patient's age to complete this topic [facility]-Rotavirus Vaccines Aged Out No lo nger eligible based on patient's age to complete this topic Procedures Procedure Name Priority Date/Time Associated Diagnosis Comments CYTO DATA CONVERSION Routine 03/18/2008 12:00 AM EDT from Last 3 Months or Most Recently Relevant to Health Maintenance Results * Cytology (03/18/2008 12:00 AM EDT) 03/18/2008 03/19/2008 10: 07 AM EDT Narrative SUNQUEST - 03/21/2008 3:01 PM EDT [facility] MR #: [id number] [facility] [place] [id number] 1960 (Age: 47) FU Collect Date: 03/18/2008 00:00 Receipt Date: 03/19/2008 10:07 Page 1 DEPARTMENT OF PATHOLOGY AND LABORATORY MEDICINE CYTOPATHOLOGY REPORT Email: [email or web address] ATTENDING MD/Practitioner: Emma Ochoa MD Service: [facility] Location: [facility] Reported: 03/21/2008 15:01 Collected: 03/18/2008 00:00 INTERPRETATION A. THIN PREP (CERVICAL/VAGINAL): NEGATIVE FOR INTRAEPITHELIAL LESION OR MALIGNANCY. SATISFACTORY FOR EVALUATION; TRANSFORMATION ZONE COMPONENT CANNOT BE DEFINITIVELY IDENTIFIED DUE TO THE PRESENCE OF ATROPHY OR OTHER HORMONAL CHANGES. Slide scanned and imaged by [email or web address] ThinPrep Imaging System with manual review of all selected stevenson. Electronically Signed Out By GANGA Mohan(ASCP) GANGA Mohan(ASCP) Cervical cytology is a screening test primarily for squamous cancers and precursors and has associated false negative and positive results. New technologies such as liquid based sampling may decrease but will not eliminate all false negative results. Regular screening and follow-up of unexplained clinical signs and symptoms are recommended to minimize false negative results. Please see the ASCCP website (www.asccp.org) for followup recommendations. If HPV testing was requested, correlation with the results is suggested (please call Microbiology at [phone] for results). CLINICAL INFORMATION: Menstrual History: Postmenopausal Date of Last Menstrual Period: {Not Provided} Other Clinical Conditions: If ASCUS and > 24 years of age, HPV/DNA testing requested. SPECIMEN DESCRIPTION: A: THIN PREP (CERVICAL/VAGINAL) THIN PREP PROCESS CELLULAR ENHANCEMENT ICD: V76.2 CERVIX, SPECIAL SCREENING FOR MALIGNANT NEOPLASM F: A; RT IMAGE 69711 SNOMED CODES: A; [id number] In cases where a pathologist has signed out the report, the service has been rendered in part by a resident. The signing pathologist has performed and is responsible for the reported pathologic evaluation. us Historical Provider MD LAB PATHOLOGY ORDERABLES Final Result [facility] from Last 3 Months or Most Recently Relevant to Health Maintenance
--- OUTSIDE RECORDS SUMMARY | 2025-05-01 10:45 | XMS_ITS | Clinical Summary ---
[facility] Organization [facility] Address [address] [place] [address] Care Team Providers Care Portfolio Lead Name Role Phone Sandoval Tuttle MD Primary Care Provider [phone] Social History Tobacco Use Types Packs/Day Years Used Date Smoking Tobacco: Never Assessed Abuse Screen Answer Date Recorded Unsafe at Home or Work/School Not on file Feels Threatened by Someone? Not on file Does Anyone Keep You from Co ntacting Others or Doint Things Outside the Home? Not on file 07/22/2023 Physical Sign of Abuse Present Not on file 1 Housing Stability Answer Date Recorded Current Living Arrangements Not on file 07/10 Potentially Unsafe Housing Conditions Not on kierra e 07/22/2023 Family and Community Support Answer Mehdi e Recorded Help with Day-to-Day Activities Not on file 07/22/2023 Lonely or Isolated Not on file 07/22/2023 Employment Answer Date Recorded Do you want help finding or keeping work or a pedrito b? Not on file 07/22/2023 Disabilities Answer Date Recorded Concentrating, Remembering, or Making Decisions Difficulty Not on file 07/22/2023 Doing Errands Independently Difficulty Not on fi le 07/22/2023 Education Answer Date Recorded Help with school or training? Not on file Preferred Language Not on file 07/22/2023 Comments Unknown Sex and Gender Information Value Date Recorded Sex Assigned at Not on file Legal Sex Female 2:55 PM EDT Gender Identity Not on file Sexual Orientation Not on file Plan of Treatment Health Maintenance Due Date Last Done Comments Annual Gynecologic Pelvic and Breast Exam 1960 TDAP/TD VACCINES (1 - Tdap) 12/19/1979 MAMMOGRAM 2000 COLOGUARD 2005 COLON CANCER SCREENING 5 YEA R SIGMOIDOSCOPY 2005 COLONOSCOPY [address] CAN[address] SCREENING [address] COLONOGRAPHY 2005 FECAL OCCULT BLOOD TEST 2005 FIT Testing (1 year) 2005 Pneumococcal Vaccine 50+ (1 of 1 - PCV) 2010 ZOSTER VACCINE (1 of 2) 2010 ANNUAL PHYSICAL 01/20/2023 COVID-19 Vaccine ( season) 2024 INFLUENZA VACCINE 07/10/2025 07/16/2022, 07/10/2018 HEPATITIS C SCREENING Completed 05/14/2020 Insurance [facility] MEDIC[facility] ADVANTAGE Care Teams Portfolio Lead Relationship Specialty Start Date End Date Sandoval Tuttle MD [address] [facility] [address] [place] [address] PCP - General Family Medicine 01/06/23
--- OUTSIDE RECORDS SUMMARY | 2025-05-01 10:46 | XMS_ITS | Clinical Summary ---
Author Organization [facility] [place] Address [address] [place] [address] Phone Care Team Providers Care Die Tripper Name Role Phone Unavailable Primary Care Provider Unavailabl e Allergies Active Allergy Reactions Criticality Noted Date Comments Penicillins Itching 09/19/2017 Medications SYMBICORT 80-4.5 mcg/actuation Inhl HFA Aerosol Inhaler 5 08/24/2017 Active clindamycin (CLEOCIN) 150 mg Oral Capsule 0 09/14/2017 Active methotrexate 2.5 mg Oral Tablet 1 08/16/2017 Acti ve ondansetron (ZOFRAN) 4 mg Oral Tablet 5 08/16/2017 Active pantoprazole (PROTONIX) 40 mg Oral Tablet, Delayed Release (E.C.) 3 08/29/2017 Active predniSONE (DELTASONE) 5 mg Oral Tablet 5 08/26/2017 Active calcium acetate (PHOSLO) 667 mg Oral Capsule Take by mouth 3 times daily (with meals). Active multivitamin with folic acid (THERAGRAN) 400 mcg Oral Tablet Take by mouth daily. Active lisinopril (PRINIVIL;ZESTRI L) 10 mg Oral Tablet Take by mouth daily. Active verapamil (CALAN) 80 mg Oral Tablet Take by mouth every 8 hours. Active busPIRone (BUSPAR) 10 mg Oral Tablet Take by mouth 2 times daily. Active metoclopramide HCl (REGLAN) 10 mg Oral Tablet Take by mouth 4 times daily. Active fUROsemide (LASIX) 40 mg/4 mL Oral Solution Take 40 mg by mouth daily. Active montelukast (SINGULAIR) 10 mg Oral Tablet Take by mouth every evening. Active HYDROcodone-acet aminophen (NORCO) 10-325 mg Oral Tablet Take 1 Tab by mouth every 6 hours as needed for Pain. Active Social History Tobacco Use Types Packs/Day Years Used Date Smoking Tobacco: Never Smokeless Tobacco: Never Comments Unknown Sex and Gender Information Value Date Recorded Sex Assigned at Not on file Legal Sex Female 9:25 AM EDT Gender Identity Not on file Sexual Orientation Not on file Obstetrics History Plan of Treatment Health Maintenance Due Date Last Done Comments Wellness Exam Medicare 12/19/1963 COVID-19 Vaccine (#1) 1965 DTaP/TDaP/Td (1 - Tdap) 12/19/1979 Pneumococcal Vaccine 50+ (1 of 2 - PCV) 12/19/1979 Zoster (1 of 2) 12/19/1979 Cervical Cancer Screening 1981 Pap Smear 1981 HPV/Pap Cotest 1990 Breast Cancer Screening 2000 Cologuard 2005 Colon Cancer Screening 2005 Colonoscopy 2005 FIT 2005 Sigmoidoscopy 2005 Virtual Colonography 2005 RSV or 60+ (1 - Ris k 60-74 years 1-dose series) 2020 Influenza Vaccine (#1) 2025 07/10/2018 Hepatitis C Screening Completed 05/14/2020 Hepatitis B Vaccine Aged Out No longe r eligible based on patient's age to complete this topic Meningococcal B Vaccine Aged Out No l onger eligible based on patient's age to complete this topic Procedures Procedure Name Priority Date/Time Associated Diagnosis Comments HCV ANTIBODY SCREEN W/ REFLEX Routine 05/14/2020 12:52 PM EDT Arthralgia, unspecified joint Arthralgia of right hand Myalgia Rheumatoid arthritis of multiple sites without rheumatoid factor (HCC) Need for prophylactic chemotherapy Fatigue, unspecified type Hypouricemia Rash and other nonspecific skin eruption Mixed connective tissue disease Myositis, unspecified myositis type, unspecified site Vitamin disease from Last 3 Months or Most Recently Relevant to Health Maintenance Results * HEPATITIS C ANTIBODY - SCREENING (05/14/2020 12:52 PM EDT) Hep C Ab Non-Reactiv e Non-Reacti ve 05/14/2020 2:15 PM EDT PREFERRED LAB [facility] Blood VENOUS BLOOD / Unknown Venipuncture / Unknown 05/14/2020 12:52 PM EDT 05/14/2020 12:52 PM EDT us Dagmar Lundberg MD HEMATOLOGY ORDERABLES Final Result PREFERRED [facility] [address] [facility] , [place] [address] from Last 3 Months or Most Recently Relevant to Health Maintenance Insurance MEDICARE [place] PART A AND B Member Subscriber Plan / Payer (Ef fective 2008-Present) Name:Mari Pierce Member ID:[id number] Relation to Subscriber:Self Name:AmberYulianae Subscriber ID:[id number] Payer ID:Not on file Group ID:Not on file Type:Not on file Address: [address] MEDICARE [place] PART A AND B
--- OUTSIDE RECORDS SUMMARY | 2025-05-01 10:46 | XMS_ITS | Clinical Summary ---
Author Organization [employer] ([place], [place], [place], [place]) Address [address] [place] [address] Care Team Providers Care Outreach Liaison Name Role Phone Sandoval Tuttle MD Primary Care Provider + [phone] Allergies Active Allergy Reactions Criticality Noted Date Comments Penicillins Itching,Other (See Comments),Rash Low 10/14/1978 Other Reaction(s): Unknown allergy reaction Medications albuterol-budes onide 90-80 mcg/actuation HFAA 10/14/2014 Active atorvastatin 20 mg/5 mL (4 mg/mL) susp 10/14/2009 Active denosumab (PROLIA) 60 mg/mL syrg TWICE YEARLY. 10/14/2021 Acti ve famotidine Take 20 mLs (20 mg total) by mouth Daily (1800). 10/14/2009 Active fluticasone propion-salmete roL (ADVAIR) 100-50 mcg/dose diskus inhaler 10/14/2009 Acti ve fluticasone propionate (FLONASE NASAL) 1 spray by each nostril route once at bedtime. 10/14/2009 Active folic acid (FOLVITE) 1 MG tablet Take 3 tablets (3 mg total) by mouth daily. Active furosemide (LASIX) 40 MG tablet Take 1 tablet (40 mg total) by mouth daily. Active pancrelipase, Ivv-Tvic-Psrr, (Creon) 36,000-114,000- 180,000 unit cpDR capsule Take 2 capsules (72,000 units of lipase total) by mouth 3 (three) times daily with meals. 06/14/2022 Active methotrexate 2.5 MG tablet Take 8 tablets (20 mg total) by mouth once a week. 05/26/2024 Active metoclopramide HCl (REGLAN) 10 MG tablet Take 1 tablet (10 mg total) by mouth 2 (two) times daily. Active omeprazole (PriLOSEC) 10 MG capsule Take 4 capsules (40 mg total) by mouth daily. 10/14/2009 Active verapamiL (CALAN) 80 MG tablet Take 1 tablet (80 mg total) by mouth daily. Active atorvastatin (LIPITOR) 40 MG tablet Take 1 tablet (40 mg total) by mouth nightly. Active Symbicort 80-4.5 mcg/actuation inhaler Inhale 2 puffs by mouth via inhaler 2 (two) times daily. Active busPIRone (BUSPAR) 10 MG tablet Take 1 tablet (10 mg total) by mouth 2 (two) times daily. 10/14/2009 Active lisinopriL (ZESTRIL) 10 MG tablet Take 1 tablet (10 mg total) by mouth daily. 02/06/2024 Active montelukast (SINGULAIR) 10 mg tablet Take 1 tablet (10 mg total) by mouth nightly. 06/14/2015 Active multivitamin with folic acid 400 mcg tab Take 1 tablet by mouth Daily (1800). Active predniSONE (DELTASONE) 5 MG tablet Take 1 tablet (5 mg total) by mouth Daily (1800). 10/14/1979 Active loratadine (CLARITIN) 10 mg tablet Take 1 tablet (10 mg total) by mouth daily. Active Active Problems Problem Noted Date Diagnosed Date Asthma 11/05/2024 Kyphosis 11/05/2024 Hyperlipidemia 11/05/2024 Anxiety 11/05/2024 Chronic pancreatitis 11/05/2024 GERD (gastroesophageal reflux disease) HTN (hypertension) 11/05/2024 Shoulder dislocation, recurrent, left 11/05/2024 Debility 11/05/2024 At high risk for falls 11/05/2024 Breathing problem 06/14/2022 Scleroderma 10/14/1979 RA (rheumatoid arthritis) 11/14/1978 Family History Medical History Relation Name Comments Rheum arthritis Maternal Grandmother Sariah Wilkes Cancer Mother Amie Browne Stroke Paternal Grandmother Katina Browne Relation Name Status Comments Maternal Grandmother Sariah Lynched Mother Amie Browne Paternal Grandmother Katina Sarabiason Social History Tobacco Use Types Packs/Day Years Used Date Smoking Tobacco: Never Smokeless Tobacco: Never Alcohol Use Standard Drinks/Week Comments Never 0 (1 standard drink = 0.6 oz pur e alcohol) Family and Community Support Answer Mehdi e Recorded Help with Day to Day Activities Not on file 06/08/2024 Feeling Lonely or Isolated Not on file 06/08 Educational Attainment Answer Date Moreno rded Speak language other than Somali at home Not on file 06/08/2024 Want help with school or training Not on file 06/08/2024 Substance Use Answer Date Recorded Used prescription meds for non-medical reasons N ot on file 06/08/2024 Used illegal drugs past 12 months Not on file 06/08/2024 Comments Unknown Sex and Gender Information Value Date Recorded Sex Assigned at Not on file Legal Sex Female 1:17 PM CDT Gender Identity Not on file Sexual Orientation Not on file Last Filed Vital Signs Vital Sign Reading Time Taken Comments Blood Pressure 116/63 11/14/2024 2:38 PM EST Pulse 100 11/14/2024 2:38 PM EST Temperature 36.4 C (97.6 F) 11/14/2024 2:34 PM EST Respiratory Rate 16 11/14/2024 2:38 PM EST Oxygen Saturation 97% 11/14/2024 2:38 PM EST Inhaled Oxygen Concentration - - Weight 81.6 kg (180 lb) 11/14/2024 11:07 AM EST Height 162.6 cm (5' 4 ) 11/05/2024 1:20 PM EST Body Mass Index 30.9 11/05/2024 1:20 PM EST Plan of Treatment Health Maintenance Due Date Last Done Comments CT Colonography 1960 Colonoscopy 1960 Colorectal Cancer Screening 1960 FOBT/FIT 1960 Fit-DNA (Cologuard) 1960 Sigmoidoscopy 1960 Depression Screening (12+) 1972 HIV Screening 12/19/1975 Hepatitis C Screening 1978 DTAP/TDAP/TD VACCINES (1 - Tdap) 12/19/1979 Pneumococcal 50+ years (1 of 2 - PCV) 12/19/1979 Pap Smear 1981 Breast Cancer Screening 2000 Lipid Panel 2005 Respiratory Syncytial Virus (RSV) Adult or (1 - Risk 60-74 years 1-dose series) 2020 Shingles Vaccine (Zoster) (2 of 2) 05/16/20232022 Medicare Initial AWV [id number] 10/11/2023 COVID-19 VACCINE (6 - 2023-2 5 season) 2024 08/11/2022, 03/01/2022, 06/08/2021, Additional history exists Influenza Vaccine (#1) 2025 Tobacco Cessation Counseling and Screening (12+) 11/05/2025 11/05/2024 Medical Devices Implanted Type Area Waste Treatment Operator Device Identifier Shelf Expiration Date Model / Serial / Lot Wire C Trcr [id number] Ss [id number] - [id number] Implanted:Qty: 4 on 11/14/2024 by Osvaldo Sorensen MD at [facility] IMPLANTS Right: Hand CONMED:[employer] 08/07/2029 [id number] / / [id number] Wire C Trcr [id number] Ss [id number] - [id number] Implanted:Qty: 4 on 11/14/2024 by Osvaldo Sorensen MD at [facility] IMPLANTS Right: Hand CONMED:[employer] 11/07/2028 [id number] / / [id number] Insurance [employer] MEDICARE HMO Advance Directives For more information, please contact: [phone] * Full Code (Latest Code Status on File) Date Activated Date Inactivated Comments 11/14/2024 9:15 AM 11/14/2024 4:25 PM Care Teams Outreach Liaison Relationship Specialty Start Date End Date Sandoval Tuttle MD [address] [place] [address] [place] [address] PCP - General Family Medicine 11/14/24
--- OUTSIDE RECORDS SUMMARY | 2025-05-01 10:46 | XMS_ITS | Patient Health Record ---
Author Organization [facility] Address [address] [place] [id number] Care Team Providers Care Microbiology Technologist Name Role Phone Sandoval Tuttle Primary Care Provider Paulette Moreno Unavailable [phone] Allergies Allergen (clinical drug ingredient) Drug/Non Drug [...] Interpretation:neg Performing Lab: Notes/Report: neg Result: neg H-TSH Reviewed date:11/12/2024 12:22:52 PM Interpretation: Performing Lab: Notes/Report: H-Microalbumine/Creatinine Reviewed date:11/12/2024 12:23:03 PM Interpretation: Performing Lab: Notes/Report: H-Lipid Panel Reviewed date:11/12/2024 12:23:14 PM Interpretation: Performing Lab: Notes/Report: H-CMP Reviewed date:11/12/2024 12:23:26 PM Interpretation: Performing Lab: Notes/Report: H-CRP Reviewed date:11/12/2024 12:23:38 PM Interpretation: Performing Lab: Notes/Report: H-Sed Rate Reviewed date:11/12/2024 12:23:51 PM Interpretation: Performing Lab: Notes/Report: H-Sed Rate Reviewed date:11/12/2024 12:27:21 PM Interpretation: Normal Performing Lab: Notes/Report: ESR 21 0-30 mm/hr H-CRP Reviewed date:11/12/2024 12:27:21 PM Interpretation: Normal Performing Lab: Notes/Report: CRP 1.7 0-4 mg/L H-CMP Reviewed date:11/12/2024 12:27:21 PM Interpretation:bun 23 Performing Lab: Notes/Report: NA 136 136-145 mmol/L K 4.7 3.5-5.1 mmoL/L CL 103 98-107 mmol/L CO2 25 22.0-30.0 mmol/L GAP 12.7 5-15 mEq/L BUN 23 7-17 mg/dl CREATT 0.70 0.52-1.04 mg/dl GFRAA 102 >60 ML/MIN EGFR 85 >60 ml/min GLU 80 74-100 mg/dl CA 8.5 8.4-10.2 mg/dl BILIT 0.4 0.2-1.3 mg/dl AST 30 14-36 U/L ALT 22 12-78 U/L TP 6.3 6.3-8.2 g/dl ALB 4.0 3.5-5.0 g/dl GLOB 2.3 1.3-3.2 g/dL AGRATIO 1.7 1.1-1.8 ALP 92 38-126 U/L H-Lipid Panel Reviewed date:11/12/2024 12:27:21 PM Interpretation:dldl 56.7, hdl 64 Performing Lab: Notes/Report: Patient Fasting? Y TRIG 87 30-150 mg/dl CHOL 149 140-200 mg/dl DLDL 56.70 100-129 mg/dL VLDL 17 0-40 mg/dL HDL 64 40-60 mg/dl CHLHDL 2.3 1-3.5 H-Microalbumine/Creatinine Reviewed date:11/12/2024 12:27:21 PM Interpretation: Normal Performing Lab: Notes/Report: UCREAT 26 Not Estab. mg/dL Random urine reference range not established. 24 hour urine samples recommended. MICROALB < 6.000 0-16.7 mg/L MALBCREAT Unable to calculate Urine Microalbumin/Creatinine Ratio due to the less than value for Urine Microalbumin. H-TSH Reviewed date:11/12/2024 12:27:21 PM Interpretation: Normal Performing Lab: Notes/Report: TSH 1.88 0.465-4.68 uIU/mL Mammogram Reviewed date:06/13/2024 04:50:04 PM Interpretation:Negative; annual f/u Performing Lab: Notes/Report: Negative; annual f/u CBC Fingerstick (in house) Reviewed date:08/13/2024 02:19:02 [...] - 38 plat 357 100 - 400 Medications Medication SIG (Take, Route, Frequency, Duration) Notes Start Date End Date Status Symbicort 80-4.5 MCG/ACT 2 puffs Inhalat ion Two times a day; Duration: 90 days Active Lisinopril 10 MG 1 tab(s) orally once a day; Duration: 90 days Active busPIRone HCl 10 MG 1 tablet Orally Twic e a day; Duration: 90 days Active Famotidine 20 MG 1 tab(s) orally bedtime Active Atorvastatin Calcium 40 MG TAKE 1/2 TABL ET EVERY NIGHT AT BEDTIME FOR CHOLESTEROL; Duration: 90 Active Folic Acid 1 MG 3 tab orally once a day Active Centrum Silver Ultra Womens - 1 tab(s) orally once a day; Duration: 90 day(s) 10/24/2013 Active Methotrexate 2.5 MG 8 tab orally once weekly 12/18 Active predniSONE 5 MG 1 tab orally once a day Active Meclizine HCl 25 MG 1 tablet as needed Orally every 8 hrs 05/02/2024 Active Omeprazole 40 MG 1 capsule 1/2 to 1 h our before morning meal Orally Once a day; Duration: 90 days Active Furosemide 40 MG 1 tablet Orally Once a day; Duration: 90 days Active Loratadine 10 MG 1 tablet Orally Once a day; Duration: 30 day(s) Active Montelukast Sodium 10 MG 1 tab(s) orally once a day; Duration: 90 days Active Promethazine-DM 6.25-15 MG/5ML 5 ml as needed Orally every 6 hrs prn 10/09/2024 Active Fluticasone Propionate 50 MCG/ACT USE 1 SPRAY NASALLY ONE TIME DAILY; Duration: 90 Active Verapamil HCl 80 MG 1 tab(s) orally once a day; Duration: 90 days Active Metoclopramide HCl 10 MG 1 tablet before meals Orally Twice a day; Duration: 90 days Active Immunizations Vaccine Route Administration Date Status Comme nts eCxpobid-vfzurwdzy-vi dicare pts. IM Intramuscular 08/11/2011 Administered cJvlnqni-gcfemwtvn-wk dicare pts. IM Intramuscular 07/21/2012 Administered xFluzone Intradermal (18-64yrs)-trivalent- medicare pts ID Intradermal 07/04/2013 Administered xFluzone (6mos and older)-trivalent IM Intramuscular 07/29/2010 Administered xFluzone (6mos and older)-trivalent IM Intramuscular 07/26/2014 Administered xAdministration of injection Unknown 03/21/2023 Administered Prevnar (PCV13) IM Intramuscular 09/24/2015 Administered Fluzone Quad-Medicare (6months&older) IM Intramuscular 07/31/2015 Administered Fluzone Quad-Medicare (6months&older) IM Intramuscular 07/25/2017 Administered Fluzone Quad-Medicare (6months&older) IM Intramuscular 08/15/2018 Administered Fluzone Quad-Medicare (6months&older) IM Intramuscular 08/03/2019 Administered Fluzone Quad-Medicare (6months&older) IM Intramuscular 07/10/2020 Administered Fluzone Quad (6months&older) IM Intramuscular 06/24/2021 Administered Given by Juli Gauthier Fluzone PF Quad (6-35 months) Unknown 07/16/2022 Administered Fluzone Intradermal Quad private(18-64yrs) ID Intradermal 07/26/2016 Administered COVID 19 Moderna Unknown 12/12/2020 Administered COVID 19 Moderna Unknown 01/09/2021 Administered COVID 19 Moderna Unknown 06/08/2021 Administered COVID 19 Moderna Unknown 03/01/2022 Administered Problems Problem Type SNOMED Code ICD Code Onset Dates Problem Status W/U Status Risk Notes Problem Gastroesophageal reflux disease (556375594) GERD (gastroesophageal reflux disease) (K21.9) Active confirmed Problem Essential hypertension (27542066) Essential (primary) hypertension (I10) Active confirmed Problem Hypertension (75717114) HTN (hypertension) (I10) Active confirmed Problem Hyperlipidemia (97591714) Hyperlipidemia (E78.5) Active confirmed Problem Anxiety (19516182) Anxiety (F41.9) Active confi rmed Problem Sciatica (36383756) Lumbago with sciatica, right side (M54.41) Active confirmed Problem Primary insomnia (7300026) Primary insomnia (F51.01) Active confirmed Problem Sciatica (73329667) Lumbago with sciatica, left side (M54.42) Active confirmed Problem Constipation (47022969) Constipation, unspecified constipation type (K59.00) Active confirmed Problem Flatulence, eructation and gas pain (540912983) Bloating (R14.0) Active confirmed Problem Allergic rhinitis (24590244) Allergic rhinitis, unspecified allergic rhinitis type (J30.9) Active confirmed Problem Mild intermittent asthma (103261805) Mild intermittent asthma without complication (J45.20) Active confirmed Problem Leukocytosis (979987275) Leukocytosis, unspecified type (D72.829) Active confirmed Problem Rheumatoid arthritis (05585788) Rheumatoid arthritis involving multiple sites, unspecified rheumatoid factor presence (M06.9) Active confirmed Problem Hyperlipidaemia (58172719) Hyperlipidemia, unspecified hyperlipidemia type (E78.5) Active confirmed Problem Chronic gouty arthritis (50848226) Chronic gout without tophus, unspecified cause, unspecified site (M1A.9XX0) Active confirmed Problem Bursitis of left shoulder (058808440927121) Bursitis of left deltoid (M75.52) Active confirmed Problem Asthma without status asthmaticus (61268729) Asthma, unspecified asthma severity, unspecified whether complicated, unspecified whether persistent (J45.909) Active confirmed Problem Scleroderma (836031601) Scleroderma (M34.9) Active confirmed Problem Rheumatoid arthritis (18613311) Rheumatoid arthritis, involving unspecified site, unspecified whether rheumatoid factor present (M06.9) Active confirmed Vital Signs Heart Rate 102 /min 10/31/2024 Blood pressure diastolic 54 mm Hg 10/31/2024 Height 65 in 10/31/2024 Blood pressure systolic 98 mm Hg 10/31/2024 Weight 180 lbs 10/31/2024 BMI 29.95 kg/m2 10/31/2024 Encounters Encounter Location Date Provider Diagnosis [facility] [address] [facility] [address] [place], [place] [id number] 05/02/2024 Sandoval Oxford Dizziness R42 and Asthma, unspecified asthma severity, unspecified whether complicated, unspecified whether persistent J45.909 [facility] [address] [facility] [address] [place], [place] [id number] 08/10/2024 Sandoval [place] Acute cough R05.1 [facility] [address] [facility] [address] [place], [place] [id number] 10/09/2024 Paulette Moreno URI (upper respirato ry infection) J06.9 [facility] [address] [facility] [address] [place], [place] [id number] 10/31/2024 Sandoval Oxford HTN (hypertension) I 10 ; Hyperlipidemia E78.5 ; Night sweats R61 and GERD (gastroesophageal reflux disease) K21.9 [facility] [address] [facility] [address] [place], [place] [id number] 11/12/2024 Sandoval Oxford [facility] [address] [facility] [address] [place], [place] [id number] 01/16/2025 Sandoval Oxford HTN (hypertension) I 10 and Asthma, unspecified asthma severity, unspecified whether complicated, unspecified whether persistent J45.909 Assessments Encounter Date Diagnosis (ICD Code) Assessment Notes Treatment Notes Treatment Clinical Notes Section Notes 10/31/2024 HTN (hypertension) (ICD-10 - I10) 10/31/2024 Hyperlipidemia (ICD-10 - E78.5) 01/16/2025 HTN (hypertension) (ICD-10 - I10) 05/02/2024 Dizziness (ICD-10 - R42) 05/02/2024 Asthma, unspecified asthma severity, unspecified whether complicated, unspecified whether persistent (ICD-10 - J45.909) 08/10/2024 Acute cough (ICD-10 - R05.1) 10/09/2024 URI (upper respiratory infection) (ICD-10 - J06.9) fluids, rest, supportive measures for fever/symptom relief; has an albuterol inhaler at home which she will use bid-tid 01/16/2025 Asthma, unspecified asthma severity, unspecified whether complicated, unspecified whether persistent (ICD-10 - J45.909) 10/31/2024 Night sweats (ICD-10 - R61) 10/31/2024 GERD (gastroesophageal reflux disease) (ICD-10 - K21.9) Plan Of Treatment Pending Test Test Name Order Date H-TSH 12/14/2023 H-CMP 12/14/2023 Next Appt Details Provider Name:Sandoval Kern ry, 05/01/2025 11:30:00 AM, [address], [place], [place], [id number], Insurance Providers Payer Name Payer Address Payer Phone Subscriber Number Group Number Insured Name Patient Relationship to Insured Coverage Start Date Coverage End Date [employer] (MEDICAR E) [address] [address] [place] [address] [id number] Mari Clark Self - patient is the insured Medical (General) History Medical History History ICD Code Hypertension Hyperlipidemia Osteoporosis Rheumatoid arthritis, followed by Rheuma tolilene Scleroderma Esophageal reflux Post op anemia 01/18, s/p transfusion of 2 units of PRBC Raynaud's asthma COVID 19, Dx: 2019 skin cancer Surgical History Surgery Date(Month/Year) Bilateral Hips Bilateral Knees Bilateral Wrists finger 2 on lt hand one on rt hand LT lbow Colonoscopy 2000 Cholecystectomy 01/22/2011 RT Wrist Replacement 07/05/2011 Thumb Fused 11/24/2011 RT Thumb Repair 10/17/2012 Cataract x 2 10/2015 Hospitalization History Reason Date(Month/Year) Stomach Pain 12/24/2010
--- OUTSIDE RECORDS SUMMARY | 2025-05-01 10:46 | XMS_ITS | Referral Summary ---
Author Organization [employer] ([place], [place], [place], [place]) Address [address] [place] [address] Care Team Providers Care Sheriffs Detective Name Role Phone Sandoval Tuttle MD Primary Care Provider + [phone] Allergies Active Allergy Reactions Criticality Noted Date [...] mg total) by mouth daily. Active pancrelipase, Cen-Tecs-Aiqu, (Creon) 36,000-114,000- 180,000 unit cpDR capsule Take [...] 06/14/2022 Scleroderma 10/14/1979 RA (rheumatoid arthritis) 11/14/1978 Social History Tobacco Use Types Packs/Day Years [...] Date Moreno rded Speak language other than Croatian at home Not on file 06/08/2024 Want [...] 11/05/2024 1:20 PM EST Plan of Treatment Not on file Medical Devices Implanted Type Area Mental Health Technician Device Identifier Shelf Expiration Date Model / Serial / Lot Wire C Trcr 0.001heu2.14mm Ss [id number] - [id number] Implanted:Qty: 4 on 11/14/2024 by Osvaldo Sorensen MD at [facility] IMPLANTS Right: Hand [employer]MED:[employer] 08/07/2029 [id number] / / [id number] Wire C Trcr [id number] Ss [id number] - [id number] Implanted:Qty: 4 on 11/14/2024 by Osvaldo Sorensen MD at [facility] IMPLANTS Right: Hand [employer]MED:[employer] 11/07/2028 [id number] / / [id number] Insurance [facility] MEDICARE HMO Advance Directives For more information, please contact: [phone] * Full Code (Latest Code Status on File) Date Activated Date Inactivated Comments 11/14/2024 9:15 AM 11/14/2024 4:25 PM Care Teams Sheriffs Detective Relationship Specialty Start Date End Date Sandoval Tuttle MD [address] [facility] [address] [place] [address] PCP - General Family Medicine 11/14/24
--- OUTSIDE RECORDS SUMMARY | 2025-05-01 10:46 | XMS_ITS | Data Portability ---
Author Organization [place] [facility]OS[facility] Address [address] [facility] [address] [place] [address] Care Team Providers Care It Audit Manager Name Role Phone LONNIE SOLANO Primary Care Provider [phone] Assessment Encounter Date Assessment Date Assessment LastModified [...] aminotrans ferase), serum or plasma 2019 020 [facility] (Lab), [address], [place], [address], 0 15:33:22 AST/SGOT (aspartate aminotrans ferase), serum or plasma 2019 020 [facility] (Lab), [address], [place], [address], 0 15:33:09 CBC w/ auto diff 2019 020 [facility] (Lab), [address], [place], [address], 0 15:34:33 creatinine , serum or plasma 2019 020 [facility] (Lab), [address], [place], [address], 0 15:32:57 ESR (erythrocy te sedimentat ion rate), blood 2019 020 [facility] (Lab), [address], [place], [address], 0 15:34:22 ALT (alanine aminotrans ferase), serum or plasma [address] (Lab), [address], [place], [address], 9 10:37:56 AST/SGOT (aspartate aminotrans ferase), serum or plasma [address] (Lab), [address], [place], [address], 9 10:37:56 CBC w/ auto diff [address] (Lab), [address], [place], [address], 9 10:37:56 creatinine , serum or plasma [address] (Lab), [address], [place], [place], [address], 9 10:37:56 ESR (erythrocy te sedimentat ion rate), blood 2018 019 [email or web address] [facility] (Lab), [address], [place], [address], 9 10:37:57 CBC w/ auto diff [address] (Lab), [address], [place], [place], [address], 8 08:10:55 ALT (alanine aminotrans ferase), serum or plasma [address] (Lab), [address], [place], [address], 8 08:10:55 AST/SGOT (aspartate aminotrans ferase), serum or plasma [address] (Lab), [address], [place], [address], 8 08:10:55 CBC w/ auto diff [address] (Lab), [address], [place], [place], [address], 8 08:10:55 creatinine , serum or plasma [address] (Lab), [address], [place], [address], 8 08:10:55 ESR (erythrocy te sedimentat ion rate), blood [address] (Lab), [address], [place], [address], 8 08:10:55 CBC w/ auto diff 2017 018 [email or web address] [facility] (Lab), [address], [place], [address], 8 11:10:12 ALT (alanine aminotrans ferase), serum or plasma [address] (Lab), [address], [place], [address], 8 07:27:32 AST/SGOT (aspartate aminotrans ferase), serum or plasma [address] (Lab), [address], [place], [address], 8 07:27:33 CBC w/ auto diff [address] (Lab), [address], [place], [address], 8 07:27:33 creatinine , serum or plasma [address] (Lab), [address], [place], [address], 8 07:27:33 ESR (erythrocy te sedimentat ion rate), blood [address] (Lab), [address], [place], [address], 8 07:27:33 Referral hand therapy referral [address] [facility], [address], [address], [place], [address], 8 09:52:32 Procedures None recorded. Surgeries None recorded. Imaging DEXA 2019 020 [facility] (X-Ray), [address], [place], [address], 0 13:46:38 Medication Orders prednisone 5 mg tablet 2019 020 INTERFACE [facility], [address] [place], [address], 0 15:11:20 methotrexa te sodium 2.5 mg tablet 2019 020 INTERFACE [facility], [address] [place], [address], 0 15:11:20 prednisone 5 mg tablet 2018 019 INTERFACE [facility], [address] [place] [address], [facility] [address], [id number], 9 16:03:05 methotrexa te sodium 2.5 mg tablet 2017 018 smoberly [facility], [address], [address], [place], [place], [id number], 8 14:23:28 prednisone 5 mg tablet 2017 018 smoberly [facility], [address], [address], [place], [place], [id number], 8 14:23:28 Prolia 60 mg/mL subcutaneo us syringe 2017 018 [email or web address] [facility], [address] [facility] [place], [address], 9 15:45:53 methotrexa te sodium 2.5 mg tablet 2017 018 INTERFACE [facility], [address], [address], [id number], 8 13:57:15 prednisone 5 mg tablet 2017 018 INTERFACE [facility], [address] [place] [address], [facility] [address], [place], [place], [id number], 8 13:57:15 Patient TargetsNo targets recorded. Patient Instructions Encounter Date Encounter Id Patient Instructions Last Modified By Organization Details Last Modified Time 02/13/2018 [id number] eating healthy foods: care instructions smoberly Not available 02/13/2018 13:57:13 scleroderma: car e instructions smoberly Not available 02/13/2018 13:57:13 05/16/2018 [id number] osteoporosis: care instructions smoberly Not available 05/16/2018 18:39:01 08/08/2018 [id number] eating healthy foods: care instructions smoberly Not available 08/08/2018 14:23:28 scleroderma: car e instructions smoberly Not available 08/08/2018 14:23:28 03/21/2019 [id number] eating healthy foods: care instructions smoberly Not available 03/21/2019 16:03:04 scleroderma: car e instructions smoberly Not available 03/21/2019 16:03:04 10/30/2019 [id number] osteoporosis: care instructions smoberly Not available 10/30/2019 [...] 11/13/2019 DEXA No observ ation record ed. [facility] [address] [facility] [address] [place] [address], [place], [id number], 11/14/2019 18:20:29 Result Notes None recorded. Problems Name Problem SNOMED Code Status Onset Date Resolution Date Notes Provider Name and Address Organization Details Recorded Time Systemic sclerosis 44684177 Active 2014 From Automated Load;Provi evonne: Schmid, Orin;Stat us: Active Not Available [facility] 6 05:17:28 Seronegat apryl rheumatoi d arthritis 626020097 Active 2014 From Automated Load;Provi evonne: Schmid, Orin;Stat us: Active Not Available [facility] 6 05:17:28 Osteoporo sis 08642837 Active 2015 From Automated Load;Provi evonne: Condon, Sima;St atus: Active Not Available [facility] 6 05:17:28 Problem Notes None recorded. Medical Equipment None Reported. Allergies Allergen ID Allergen Name Allergen Category Reaction Reaction Severity Criticality Documentation Date Start Date Code Code System Note Provider Name and Address Organization Details Recorded Time 883410 Product containin g penicilli n (product) medicatio n Not available Not available Not available 09/03/20162010 30490 8001 SNOMED Comme nt: Creat ed By: Romeo sánchezCre ated Date: 2010 9:28: 34 AM; Not Available [facility] 6 04:19:29 Medications Name Sig Start Date [...] Not Available Vitals Date Recorded Body height Respiratory rate Heart rate Systolic And Diastolic Provider Name and Address Organization Details Last Updated DateTime 10/30/2019 165.1 cm 18 /min 101 /min 91/64 mm[Hg] Marisol Castellon [facility] 10/30/2019 14:55:10 Date Recorded Body height Body mass index (BMI) Body weight Respiratory rate Heart rate Systolic And Diastolic Provider Name and Address Organization Details Last Updated DateTime 8 165.1 cm 27.8 kg/m2 54512.9 3 g 16 /min 107 /min 111/71 mm[Hg] January Patito [facility] 8 13:42:34 Date Recorded Body height Body mass index (BMI) Body weight Respiratory rate Heart rate Systolic And Diastolic Provider Name and Address Organization Details Last Updated DateTime 9 165.1 cm 30.5 kg/m2 42792.4 g 18 /min 94 /min 98/76 mm[Hg] Carlita Guevara [facility] 9 15:44:22 Date Recorded Body height Body mass index (BMI) Body weight Respiratory rate Heart rate Systolic And Diastolic Provider Name and Address Organization Details Last Updated DateTime 8 165.1 cm 27.8 kg/m2 62735.9 3 g 18 /min 59 /min 116/77 mm[Hg] Nevaeh Andrews [facility] 8 14:00:50 Social History Question Answer Notes LastModified by [facility] Details LastModified Time Tobacco Smoking Status Never Smoker Tresa Kelley [facility] 02/10/2017 14:31:18 How Much Tobacco Do You Chew? None [email or web address] Information not available 03/21/2019 What Was The Date Of Your Most Recent Tobacco Screening? 03/21/2019 Information n ot available 11/27/2019 How Much Tobacco Do You Smoke? No [email or web address] Information not available 03/21/2019 How Many Years Have You Smoked Tobacco? 0 [email or web address] Information not available 03/21/2019 Sex: Unknown Functional Status Question Answer Note LastModified by [facility] Details LastModified Time What is your level of alcohol consumption? None Information not available 02/10/2017 Do you or have you ever used smokeless tobacco? Never used smokeless tobacco [email or web address] Information not available 10/30/2019 Do you or have you ever used e-cigarettes or vape? Never used electronic cigarettes [email or web address] Information not available 10/30/2019 Mental Status None recorded. Family History Nothing Reported Notes:Maternal grandmother h ad severe RA Medical History Condition Response Diabetes N Bleeding Disorder N Arthritis Y Emphysema N Acid Reflux (GERD) Y Heart Disease N Rheumatoid Arthritis Y Hypertension Y COPD N Asthma Y Gynecological HistoryNo gynecological history recorded. Obstetrics History GPAL:G 0 P 0 0 0 0 Immunizations Vaccine Type Date Status Note Provider Nam e and Address Organization Details Recorded Time Influenza, split virus, quadrivalent, preservative 8 completed [place] Guevara [facility] 03/21/2019 15:46:12 Past Encounters Encounter ID Performer Location Encounter Start Date Encounter Closed Date Diagnosis/Indication Diagnosis SNOMED-CT Code Diagnosis ICD10 Code Diagnosis Note [id number] SIMA MARTINEZ APRN RHEUMATOL [place] [address] [place] [address] 1 Osteoporosis 05069725 M81.0 [facility] [address]- 11 injected one 60mg/1mL syringe [id number] [place] [address] [place] [address] 1 02/10/2017 13:28:02 02/10/2017 15:20:18 Osteoporosis 15441714 M81.0 needs clearance labs todaynext injection due april 24, 2017 or laterlabs today Nausea 138951677 R11.0 recurring; will have her f/u with pcp Seronegati ve rheumatoid arthritis 986164607 M06.00 rodent exterminator medication therapynor mal systemic examWithou t synovitis or dactylitis [id number] [place] [address] [place] [address] 1 04/28/2017 13:37:05 04/28/2017 14:33:24 Osteoporosis 22923944 M81.0 needs clearance labs todaynext injection due april 24, 2017 or laterlabs today [id number] SIMA MARTINEZ APRN RHEUMATOL [place] [address] [place] [address] 1 08/16/2017 13:19:55 08/22/2017 08:27:15 Osteoporosis 29227818 M81.0 needs clearance labs todaynext injection due october 29, 2017needs bone density --requests for it to be done close to hom[facility]abs today Nausea 913331450 R11.0 recurring; will have her f/u with pcp Seronegati ve rheumatoid arthritis 695401722 M06.00 [facility] medication therapysta ble systemic exam Without major synovitis or dactylitis stiff and limited with bony deformity from RA and OA combinatio n skilled nursing methotrexate user [id number] 00 Z79.899 Postmenopa usal osteoporosis 262019320 M81.0 [id number] [place] [address] [place] [address] 1 11/08/2017 13:18:59 11/09/2017 08:59:29 Osteoporosis 11370753 M81.0 needs clearance labs todaynext injection due october 29, 2017needs bone density --requests for it to be done close to homelabs today [id number] [place] [address] [place] [address] 1 02/13/2018 13:21:56 02/13/2018 14:05:56 Systemic sclerosis 30997836 M34.9 Seronegati ve rheumatoid arthritis 044714835 M06.00 rodent exterminator medication therapysta ble systemic exam Without major synovitis or dactylitis stiff and limited with bony deformity from RA and OA combinatio n skilled nursing methotrexate user [id number] Z79.899 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 elevated wbc count at 16.5 will obtain further assessment [id number] SIMA [place]INEZ [place] [address] 1 05/16/2018 12:47:45 05/16/2018 13:29:04 Osteoporosis 99945397 M81.0 needs clearance labs todaynext injection due october 29, 2017needs bone density --requests for it to be done close to hom[facility] today [id number] SIMA MARTINEZ [place]N [place] [address] 1 08/08/2018 13:29:44 08/09/2018 07:56:56 Seronegative rheumatoid arthritis 016995118 M06.00 f/u on RA with chronic rodent exterminator medication therapyWit hout major synovitis or dactylitis todayconti nues with crippling and bony deformity from RA, systemic sclerosis and OA combinatio ncontinue with mtx and prn prednisone take 5 po once weekly, Systemic sclerosis 39799 008 M34.9 overlap syndrome treated as Ra 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 methotrexate user [id number] Z79.899 labs reviewed will obtain labs prior to next visit f/u 6 months or sooner White bloo d cell disorder 20784988 D72.9 elevated wbc count at 13.5 from 16.5 will obtain further assessment today all other labs reviewed [id number] SIMA MARTINEZ APRN RHEUMATOL [facility] [address] [place] [address] 03/21/2019 15:07:26 03/23/2019 13:21:44 Seronegative rheumatoid arthritis 607120669 M06.00 f/u on RA with chronic rodent exterminator medication therapyWit hout major synovitis or dactylitis todayconti nues with crippling and bony deformity from RA, systemic sclerosis and OA combinatio ncontinue with mtx and prn prednisone take 5 po once weekly, Systemic sclerosis 77029 008 M34.9 overlap syndrome treated as Ra skilled nursing methotrexate user [id number] 00 Z79.899 labs reviewed will obtain labs prior to next visit f/u 6 months or sooner [id number] SIMA MARTINEZ APRN RHEUMATOL [address] [address] 10/30/2019 14:15:11 10/30/2019 15:19:58 Seronegative rheumatoid arthritis 760579416 M06.00 f/u on RA with chronic chcf medication therapyWit hout major synovitis or dactylitis todayconti nues with crippling and bony deformity from RA, systemic sclerosis and OA combinatio ncontinue with mtx and prn prednisone take 5 po once weekly, Systemic sclerosis 78005 008 M34.9 overlap syndrome treated as Ra skilled nursing methotrexate user [id number] 00 Z79.899 labs reviewed will obtain labs prior to next visit f/u 6 months or sooner Osteoporosis 48771048 M8 1.0 needs clearance labs todaynext injection [...] ID Nieves Member ID Guarantor Name 10/30/[address] [place] [address] [id number] David Clark [id number] Mari Clark 04/28/2020 1 [place] Mari Clark [id number] Mari Clark 04/28/2020 2 [place] [id number] David Clark Jr [id number] Mari Clark 10/09/2017 PAYMENT PLAN Mari [...] all others are negative SIMA MARTINEZ APRN [address] [place], [address], [facility] 02/13/2018 14:09:06 08/08/2018 text/html recent flare; to [...] all others are negative SIMA MARTINEZ APRN [address] [place], [address], [facility] 08/08/2018 14:26:23 03/21/2019 text/html f/u on RA; [...] all others are negative SIMA MARTINEZ APRN [address] [place], [address], [facility] 03/21/2019 16:07:16 10/30/2019 text/html f/u on RA; [...] due to the ramp here at the [facility] but she is walking around 5000 steps daily; she is losing weight with weight watchers; she currently denies bowel or bladder changes, chest pain, soa, rashes, fevers and all others are negative SIMA MARTINEZ, TEMPLATE REPRODUCTION TECHNICIAN [address] [place], [address], [facility] 10/30/2019 15:15:32 OBGyn Episode No OBEpisode recorded.
--- OUTSIDE RECORDS SUMMARY | 2025-05-01 10:46 | XMS_ITS | Encounter Summary ---
Author Organization [employer] ([place], [place], [place], [place]) Address [address] [place] [address] Care Team Providers Care Song Plugger Name Role Phone [facility] Tomasa Harris Primary Care Provider Sandoval Tuttle MD Primary Care Provider [phone] Reason for Referral * Consultation (Routine) - Closed Specialty Diagnoses / Procedures Referred By Sabrina glass Referred To Contact Neurology Diagnoses Pre-operative clearance Osvaldo Sorensen MD [address] [facility] 2nd [place] [address] Phone: [place]: [place] [address] [place] [address] [address] [place] [address] Phone: tel: fax: Referral ID Status Reason Start Date Expiration Date V isits Requested Visits Authorized [id number] Closed Specialty Services Required 06/08/2024 06/08/2025 1 1 Encounter Details Date Type Department Care Team (Late st Contact Info) Description 06/08/2024 Outside Orders [facility] Neurology - [place] [address] [place] [address] Osvaldo Sorensen MD [address] [facility] 2nd [place] [address] Pre-operative clearance (Primary Dx) Social History Tobacco Use Types Packs/Day Years Used Date Smoking Tobacco: Never Assessed Family and Community Support Answer Mehdi e Recorded Help with Day to Day Activities Not on file 06/08/2024 Feeling Lonely or Isolated Not on file 06/08 Educational Attainment Answer Date Moreno rded Speak language other than Japanese at home Not on file 06/08/2024 Want [...] on file Sexual Orientation Not on file documented as of this encounter Plan of Treatment Scheduled Referrals Name Type Priority Associated Diagnoses Order Schedule Ambulatory referral to Neurology Outpatient Referral Routine Pre-operative clearance Ordered: 06/08/2024 documented as of this encounter Visit Diagnoses Diagnosis Pre-operative clearance- Primary Unspecified pre-operative examination documented in this encounter Care Teams Song Plugger Relationship Specialty Start Date End Date [facility] Connection, [facility] [place] [address] PCP - General 11/05/24 11/13/24 Sandoval Tuttle MD [address] [facility] [address] [place] [address] PCP - General Family Medicine 11/14/24 documented as of this encounter
[2025-05-01 11:27] LABS: Hematocrit 41.3 % (37.0-47.0); Hemoglobin 13.1 g/dL (12.2-16.2); Immature Granulocytes % 0.6 %; Mean Corpuscular HGB Conc 31.7 g/dL (31.8-35.4); Mean Corpuscular Hemoglobin 33.3 pg (27.0-31.2); Mean Corpuscular Volume 105.1 fl (81-99); Nucleated Red Blood Cells % 0 %; Platelet Count 359 K/mm3 (142-424); Red Blood Count 3.93 M/mm3 (4.20-5.40); Red Cell Distribution Width-SD 66.1 fL; White Blood Count 17.6 K/mm3 (4.8-10.8)
[2025-05-01 11:56] LABS: Albumin Level 4.1 g/dl (3.5-5.0); Chloride 96 mmol/L (98-107); Potassium 3.8 mmoL/L (3.5-5.1); Sodium 132 mmol/L (136-145)
[2025-05-01 11:59] LABS: Alanine Aminotransferase 21 U/L (12-78); Albumin/Globulin Ratio 1.6 (1.1-1.8); Alkaline Phosphatase 128 U/L (38-126); Anion Gap 10.8 mEq/L (5-15); Aspartate Amino Transferase 30 U/L (14-36); Bilirubin,Total 0.9 mg/dl (0.2-1.3); Blood Urea Nitrogen 29 mg/dl (7-17); Carbon Dioxide 29 mmol/L (22.0-30.0); Creatine Kinase 38 U/L (30-135); Creatinine,Serum 1.00 mg/dl (0.52-1.04); Estimated Glomerular Filt Rate 56 ml/min (>60); GFR (African American) 68 ML/MIN (>60); Globulin 2.5 g/dL (1.3-3.2); Total Protein,Serum 6.6 g/dl (6.3-8.2)
[2025-05-01 12:00] LABS: Calcium 9.5 mg/dl (8.4-10.2); Glucose 99 mg/dl (74-100)
[2025-05-01 12:05] LABS: C-Reactive Protein 1.0 mg/L (0-4)
== END 2025-05-01 23:59 | disposition home or self-care (01) ==
LOC: LAB 10:40
PROVIDERS: PCP Family Medicine; Visit Provider Internal Medicine Rheumatology
DX: J84.9 Interstitial pulmonary disease, unspecified (principal); M81.0 Age-related osteoporosis without current pathological fracture; M35.1 Other overlap syndromes; Z79.899 Other long term (current) drug therapy; Z79.52 Long term (current) use of systemic steroids
CPT/HCPCS: 36415; 80053; 82550; 85025; 85651; 86140

== ENCOUNTER 2025-07-10 09:02 | Outpatient (CLI) | payer MEDICARE, SELFPAY ==
--- OUTSIDE RECORDS SUMMARY | 2024-10-31 06:00 | XMS_ITS ---
[facility] Address [facility] [facility] [address] [phone] Care Team Providers Care Wheel Buffer Name Role Phone Sandoval Tuttle Primary Care [...] Provider Diagnosis [facility] [address] [phone] 10/31/2024 Sandoval Tuttle HTN (hypertension) I 10 [...] 11/01/2025 11:00:00 AM, [address] [facility] [address], [address], [place], [place], [phone], Progress Notes * Yuliana PIERCEeDOB: (64 yo F)Acc No.[id number]:10/31/2024 Progress Notes Patient: Mari HILARIO Provider: Eliot Tuttle M.D. :1960 A ge:63 Y S ex:Female Date:10/31/2024 Address:[address] [place], [place] [phone] Subjective: * Chief Complaints: * 1 . [...] * Images: Billing Information: * Visit Code: 35408 Office Visit, Est Pt., Level 4. * Procedure Codes: G2211 Complex e/m visit add on. * Electronic signature of Alice Tuttle MD on 07/10/2025 at 09:20 AM EDT Sign off status: Pending * Provider: Eliot Tuttle M.D. Date: 0 10/31/2024 Generated for Marci khalil/Octavia/Holly on: 1 09:20 AM EDT History and Physical Notes * [...]
--- OUTSIDE RECORDS SUMMARY | 2025-05-01 07:30 | XMS_ITS ---
Author Organization [facility] Address 1210 [facility] [address] [place] [phone] Care Team Providers Care Pedigree Tracer Name Role Phone Sandoval Tuttle Primary Care Provider [phone] Allergies Allergen (clinical drug ingredient) Drug/Non Drug [...] Problem Body mass index 30+ - obesity (487717900) BMI 30.0-30.9,a dult (Z68.30) Active confirmed Vital Signs Blood pressure systolic 102 mm Hg 05/01/20 25 Blood pressure diastolic 60 mm Hg 025 Height 65 in 05/01/2025 Weight 181 lbs 05/01/2025 BMI 30.12 kg/m2 05/01/2025 Encounters Encounter Location Date Provider Diagnosis [facility] [address] [place] [id number] 05/01/2025 Sandoval Tuttle HTN (hypertension) I 10 [address], [place], [phone], Progress Notes * Papa IPERCEOB: 1 (64 yo F)Acc No.[id number]:05/01/2025 Progress Notes Patient: Mari HILARIO Provider: Eliot Tuttle M.D. :1960 A ge:64 Y S ex:Female Date:05/01/2025 Address:[address] [place] [address] Subjective: * Chief Complaints: * 1 . [...] whether persistent - J45.909 4 . B MT 30.0-30.9,adult - Z68.30 Plan: * Treatment: 2. B loating Notes: OTC probiotic recommended * Procedure Codes: G 2211 Complex e/m visit add on, 1036F TOBACCO NON-USER, G8950 PREHTN/HTN BP DOC INDCD F/U DOC, G8752 MOST RECENT SYSTOLIC BP < 140MM HG, G8754 MOST RECENT DIASTOLIC BP < 90MM HG * Follow Up: 6 Months * Images: Billing Information: * Visit Code: 23830 Office Visit, Est Pt., Level 3. * [...] M.D. Date: 0 05/01/2025 Generated for Marci khalil/Octavia/Elliotransmitting on: 1 09:20 AM EDT History and [...]
--- OUTSIDE RECORDS SUMMARY | 2025-06-14 07:30 | XMS_ITS ---
Author Organization [facility] Address [facility] [address] [place] [phone] Care Team Providers Care Hot Header Operator Name Role Phone Sandoval Tuttle Primary [...] 06/14/2025 Encounters Encounter Location Date Provider Diagnosis [facility] 1210 [facility] 36 [facility] [address] [place], [place] [phone] 06/14/2025 Sandoval Tuttle Acute cough R 05.1 [...] Name:Sandoval Kern ry, 11/01/2025 11:00:00 AM, 1210 [facility] 36 [facility], [address], [place], [place], [phone], Progress Notes * Yuliana PIERCEeDOB: 1 (64 yo F)Acc No.[id number]:06/14/2025 Progress Notes Patient: Mari HILARIO Provider: Eliot Tuttle M.D. :1960 A ge:64 Y S ex:Female Date:06/14/2025 Address:[address] [place], [place] [phone] Subjective: * Chief Complaints: * 1 . [...] G 2211 Complex e/[place], [address] CBC WITH AUTO DIFF, 64213 VENIPUNCT, ROUTINE*, 1036F TOBACCO NON-USER, G8752 MOST RECENT SYSTOLIC BP < 140MM HG, G8754 MOST RECENT DIASTOLIC BP < 90MM HG, G8783 BP SCR PRFRM RCMDD DEFIND SCR INTVL * Follow Up: v ia phone to report progress * Images: Billing Information: * Visit Code: 26318 Office Visit, Est Pt., Level 3. * Procedure Codes: G2211 Complex e/[place]. [address] CBC WITH AUTO DIFF. 47855 VENIPUNCT, ROUTINE*. 1036F TOBACCO NON-USER. G8752 MOST RECENT SYSTOLIC BP < 140MM HG. G8754 MOST RECENT DIASTOLIC BP < 90MM HG. G8783 BP SCR PRFRM RCMDD DEFIND SCR INTVL. * Electronic signature of Alice Tuttle MD on 07/10/2025 at 09:19 AM EDT Sign off status: Pending * Provider: Eliot Tuttle M.D. Date: 0 06/14/2025 Generated for Marci khalil/Octavia/eTransmitting on: 1 09:19 AM EDT History and Physical Notes * [...] Heart: RSR Lungs: good air entry bilat kourtney, coarse breath sounds present Extremities: contractures noted i n hands General Appearance: NAD, sitting in a wh eel chair Skin: no rash Oral cavity: minimal erythema Back: dorsal kyphosis
--- OUTSIDE RECORDS SUMMARY | 2025-06-24 10:15 | XMS_ITS ---
Author Organization [facility] Address [facility] [address] [place] [phone] Care Team Providers Care Sand Filler Name [...] 06/24/2025 Encounters Encounter Location Date Provider Diagnosis [facility] 1210 [facility] 36 [facility] [address] [place] [id number] 06/24/2025 Sandoval Tuttle Acute cough R 05.1 [...] 11/01/2025 11:00:00 AM, [address] [facility], [address], [place], [id number], Progress Notes * Papa PIERCEOB: 1 (64 yo F)Acc No.[id number]:06/24/2025 Progress Notes Patient: Mari HILARIO Provider: Eliot Tuttle M.D. :1960 A ge:64 Y S ex:Female Date:06/24/2025 [facility] Subjective: * Chief Complaints: * 1 . [...] latlet 412 100 - 400 * Lisbeth Miur 06/24/2025 02:46: 15 PM EDT > Provider reviewed results while patient in office. * Procedure Codes: G 2211 Complex e/[place], [address] CBC WITH AUTO DIFF, 00848 VENIPUNCT, ROUTINE*, 1036F TOBACCO NON-USER, G8783 BP SCR PRFRM RCMDD DEFIND SCR INTVL, G8752 MOST RECENT SYSTOLIC BP < 140MM HG, G8754 MOST RECENT DIASTOLIC BP < 90MM HG, 3074F SYST BP LT 130 MM HG, 3078F DIAST BP < 80 MM HG * Follow Up: v ia phone to report progress * Images: Billing Information: * Visit Code: 27290 Office Visit, Est Pt., Level 3. * Procedure Codes: G2211 Complex e/[place]. [address] CBC WITH AUTO DIFF. 54235 VENIPUNCT, ROUTINE*. 1036F TOBACCO NON-USER. G8783 BP [...] 06/24/2025 Generated for Marci khalil/Octavia/eTkacysmitting on: 1 09:20 AM EDT History and [...]
--- NOTE | 2025-07-10 09:06 | XR_ITS ---
FINAL REPORT CLINICAL HISTORY: SCREENING METAL IN BOTH WRISTS AND BOTH HIPS COMPARISON: 05/20/2022 FINDINGS: Using L1-4, the bone mineral density of the spine is 1.293 g/cm2, corresponding to T-score of 2.2, within normal limits with previous of 1.207 with a T-score of 1.5. Hips and wrists were not evaluated as metal is present in both. NOTE: T-score: Standard deviation compared with peak bone mass of young adult mean. *Following the recommendations of the International Society of Bone densitometry, classification of hip BMD is based on the lower of two T-scores; total hip or femoral neck. IMPRESSION: Normal bone mineral density of the lumbar spine. Reviewed, Interpreted and Dictated by Adryan Oropeza MD Transcribed by Rabia Briggs Authenticated and [facility]
--- OUTSIDE RECORDS SUMMARY | 2025-07-10 09:20 | XMS_ITS | Clinical Summary ---
Author Organization [facility] Address [address] [place] [address] Care Team Providers Care Sanding Machine Operator Name Role Phone Unavailable Primary Care Provider [...] 03/18/2013 03/18/2008, 02/07, 02/05/2005, Additional history exists [id number] Vaccine (2024- season) 2025 06/08/2021, 01/09/2021, 12/12/2020 UKY-Influenza Vaccine (#1) 06/10/202506/24, [...] Narrative SUNQUEST - 03/21/2008 3:01 PM EDT [facility] MR #: [id number] [facility] [place] [address] 1960 (Age: 47) FU Collect Date: 03/18/2008 00:00 Receipt Date: 03/19/2008 10:07 Page 1 DEPARTMENT OF PATHOLOGY AND LABORATORY MEDICINE CYTOPATHOLOGY REPORT Email: [email or web address] [phone] ATTENDING MD/Practitioner: Emma Ochoa MD Service: [facility] [place] [facility] [place]orted: 03/21/2008 15:01 Collected: 03/18/2008 00:00 INTERPRETATION A. THIN PREP (CERVICAL/VAGINAL): NEGATIVE FOR INTRAEPITHELIAL LESION OR MALIGNANCY. SATISFACTORY FOR EVALUATION; TRANSFORMATION ZONE COMPONENT CANNOT BE DEFINITIVELY IDENTIFIED DUE TO THE PRESENCE OF ATROPHY OR OTHER HORMONAL CHANGES. Slide scanned and imaged by [employer] ThinPrep Imaging System with manual review of [...] results is suggested (please call Microbiology at [phone] for results). CLINICAL INFORMATION: Menstrual History: Postmenopausal Date of Last Menstrual Period: {Not Provided} Other Clinical Conditions: If ASCUS and > 24 years of age, HPV/DNA testing requested. SPECIMEN DESCRIPTION: A: THIN PREP (CERVICAL/VAGINAL) THIN PREP PROCESS CELLULAR ENHANCEMENT ICD: V76.2 CERVIX, SPECIAL SCREENING FOR MALIGNANT NEOPLASM F: A; RT IMAGE 57245 SNOMED CODES: A; A6Y283 [id number] [id number] M-[id number] In cases where a pathologist has signed out the report, the service has been rendered in part by a resident. The signing pathologist has performed and is responsible for the reported pathologic evaluation. us Historical Provider LAB PATHOLOGY ORDERABLES Fin al Result SUNButton from Last 3 Months or Most Recently Relevant to Health Maintenance
--- OUTSIDE RECORDS SUMMARY | 2025-07-10 09:20 | XMS_ITS | Clinical Summary ---
Author Organization [facility] Address [address] [place] [address] Care Team Providers Care Radio Interference Trouble Shooter Name Role Phone Sandoval Tuttle MD Primary Care Provider [phone] Social History Tobacco Use Types Packs/Day Years [...] (1 of 2) 2010 ANNUAL PHYSICAL 01/20/2023 INFLUENZA VACCINE 05/10/2025 07/16/2022, 07/10/2018 HEPATITIS C SCREENING Completed 05/14/2020 Insurance [facility] MEDICARE ADVANTAGE Care Teams Radio Interference Trouble Shooter Relationship Specialty Start Date End Date Sandoval Tuttle MD [address] [facility] [address] [place] [address] PCP - General Family Medicine 01/06/23
--- OUTSIDE RECORDS SUMMARY | 2025-07-10 09:21 | XMS_ITS | Clinical Summary ---
Author Organization [employer] ([place], [place], [place], [place]) Address [address] [place] [address] Care Team Providers Care Sanitary Chemist Name Role Phone Sandoval Tuttle MD Primary Care Provider + [phone] Allergies Active Allergy Reactions Criticality Noted Date [...] mg total) by mouth daily. Active pancrelipase, Zmi-Xxhn-Qzui, (Creon) 36,000-114,000- 180,000 unit cpDR capsule Take [...] Date Moreno rded Speak language other than Burkinan at home Not on file 06/08/2024 Want [...] AWV G0438 10/11/2023 COVID-19 VACCINE (6 - 2024-2 6 season) 2025 08/11/2022, 03/01/2022, 06/08/2021, Additional history exists Influenza Vaccine (#1) 2025 Tobacco Cessation Counseling and Screening (12+) 11/05/2025 11/05/2024 Medical Devices Implanted Type Area Client Hr Manager Device Identifier Shelf Expiration Date Model / Serial / Lot Wire C Trcr 0.740wsr2.14mm Ss [id number] - [id number] Implanted:Qty: 4 on 11/14/2024 by Osvaldo Sorensen MD at [facility] IMPLANTS Right: Hand [employer] 08/07/2029 [id number] / / [id number] Wire C Trcr 0.325vpr0.14mm Ss [id number] - [id number] Implanted:Qty: 4 on 11/14/2024 by Osvaldo Sorensen MD at [facility] IMPLANTS Right: Hand [employer] 11/07/2028 [id number] / / [id number] Insurance [employer] MEDICARE HMO Advance Directives For more information, please contact: [phone] * Full Code (Latest Code Status on File) Date Activated Date Inactivated Comments 11/14/2024 9:15 AM 11/14/2024 4:25 PM Care Teams Sanitary Chemist Relationship Specialty Start Date End Date Sandoval Tuttle MD [address] [place] [facility] [address] [place] [id number] PCP - General Family Medicine 11/14/24
--- OUTSIDE RECORDS SUMMARY | 2025-07-10 09:21 | XMS_ITS | Clinical Summary ---
Author Organization [facility] [place] Address [address] [place] [address] Phone Care Team Providers Care Auto Tune Up Mechanic Name Role Phone Unavailable Primary Care Provider [...] ve 05/14/2020 2:15 PM EDT [facility]REFERR[facility] Blood VENOUS BLOOD / Unknown Venipuncture / Unknown 05/14/2020 12:52 PM EDT 05/14/2020 12:52 PM EDT us Dagmar Lundberg MD HEMATOLOGY ORDERABLES Final Result [facility] [place] [address] from Last 3 Months or Most Recently Relevant to Health Maintenance Insurance MEDICARE [place] PART A AND B Member Subscriber Plan / Payer (Ef fective 2008-Present) Name:Mari Pierce Member ID:[id number] Relation to Subscriber:Self Name:Edwar Piercelene Subscriber ID:[id number] Payer ID:Not on file Group ID:Not on file Type:Not on file Address: [address] MEDICARE [place] PART A AND B
--- OUTSIDE RECORDS SUMMARY | 2025-07-10 09:21 | XMS_ITS | Patient Health Record ---
[facility] Organization [facility] Address [address] [facility] [address] [place] [id number] Care Team Providers Care Nursing Unit Manager Name Role Phone Sandoval Tuttle Primary Care Provider [phone] Paulette Moreno Unavailable [phone] Allergies Allergen (clinical drug ingredient) Drug/Non Drug [...] - 38 plat 357 100 - 400 CBC Venipuncture (in house) Reviewed date:06/17/2025 04:25:16 [...] - 38 platlet 370 100 - 400 CBC Venipuncture (in house) Reviewed date:06/25/2025 10:56:26 [...] - 38 platlet 412 100 - 400 H-Microalbumine/Creatinine Reviewed date:11/12/2024 12:27:21 PM Interpretation: Normal Performing Lab: Notes/Report: UCREAT 26 Not Estab. mg/dL Random urine reference range not established. 24 hour urine samples recommended. MICROALB < 6.000 0-16.7 mg/L MALBCREAT Unable to calculate Urine Microalbumin/Creatinine Ratio due to the less than value for Urine Microalbumin. H-Lipid Panel Reviewed date:11/12/2024 12:27:21 PM Interpretation:dldl 56.7, hdl 64 Performing Lab: Notes/Report: Patient Fasting? Y TRIG 87 30-150 mg/dl CHOL 149 140-200 mg/dl DLDL 56.70 100-129 mg/dL VLDL 17 0-40 mg/dL HDL 64 40-60 mg/dl CHLHDL 2.3 1-3.5 H-CMP Reviewed date:11/12/2024 12:27:21 PM Interpretation:bun 23 [...] AGRATIO 1.7 1.1-1.8 ALP 92 38-126 U/L H-Sed Rate Reviewed date:11/12/2024 12:27:21 PM Interpretation: Normal Performing Lab: Notes/Report: ESR 21 0-30 mm/hr H-CRP Reviewed date:11/12/2024 12:27:21 PM Interpretation: Normal Performing Lab: Notes/Report: CRP 1.7 0-4 mg/L H-TSH Reviewed date:11/12/2024 12:27:21 PM Interpretation: Normal Performing Lab: Notes/Report: TSH 1.88 0.465-4.68 uIU/mL Covid test (in house) Reviewed date:10/09/2024 08:43:50 PM Interpretation:neg Performing Lab: Notes/Report: neg Result: neg Influenza Screen (in house) Reviewed date:10/09/2024 08:44:03 PM Interpretation:neg Performing Lab: Notes/Report: neg results neg H-TSH Reviewed date:11/12/2024 12:22:52 PM Interpretation: Performing Lab: Notes/Report: H-Microalbumine/Creatinine Reviewed date:11/12/2024 12:23:03 PM Interpretation: Performing Lab: Notes/Report: H-Lipid Panel Reviewed date:11/12/2024 12:23:14 PM Interpretation: Performing Lab: Notes/Report: H-CMP Reviewed date:11/12/2024 12:23:26 PM Interpretation: Performing Lab: Notes/Report: H-CRP Reviewed date:11/12/2024 12:23:38 PM Interpretation: Performing Lab: Notes/Report: H-Sed Rate Reviewed date:11/12/2024 12:23:51 PM Interpretation: Performing Lab: Notes/Report: Medications Medication SIG (Take, Route, Frequency, Duration) Notes Start Date End Date Status Zithromax Z-Juan 250 MG as directed Orall y daily; Duration: 5 days 06/24/2025 Active busPIRone HCl 10 MG TAKE 1 TABLET TWICE DAILY; Duration: Active Omeprazole 40 MG TAKE 1 CAPSULE 1/2 T O 1 HOUR BEFORE MORNING MEAL ONCE A DAY; Duration: Active Metoclopramide HCl 10 MG TAKE 1 TABLET T WICE DAILY BEFORE MEALS; Duration: 90 Active Loratadine 10 MG 1 tablet Orally Once a day; Duration: 30 day(s) Active predniSONE 5 MG 1 tab orally once a day Active Montelukast Sodium 10 MG 1 tab(s) orally once a day; Duration: 90 days Active Furosemide 40 MG TAKE 1 TABLET EVERY DAY; Duration: 90 Active Methotrexate 2.5 MG 8 tab orally once weekly 12/18 Active Atorvastatin Calcium 40 MG 1/2 tablet at bedtime Orally Once a day; Duration: 90 days Active Centrum Silver Ultra Womens - 1 tab(s) orally once a day; Duration: 90 day(s) 10/24/2013 Active Fluticasone Propionate 50 MCG/ACT USE 1 SPRAY NASALLY ONE TIME DAILY; Duration: 90 Active Folic Acid 1 MG 3 tab orally once a day Active Lisinopril 10 MG 1 tab(s) orally once a day; Duration: 90 days Active Famotidine 20 MG 1 tab(s) orally bedtime Active Verapamil HCl 80 MG 1 tab(s) orally once a day; Duration: 90 days Active Meclizine HCl 25 MG 1 tablet as needed Orally every 8 hrs 05/02/2024 Active Promethazine-DM 6.25-15 MG/5ML 5 mL as needed Orally every 6 hrs 06/14/2025 Active Symbicort 80-4.5 MCG/ACT 2 puffs Inhalat ion Two times a day; Duration: 90 days Active Immunizations Vaccine Route Administration Date Status Comme nts bJuumwzx-xfyyfkoan-ea dicare pts. IM Intramuscular 08/11/2011 Administered sQkvggyy-fxzaqhfqd-gs dicare pts. IM Intramuscular 07/21/2012 Administered xFluzone [...] Status Risk Notes Problem Gastroesophageal reflux disease (009056928) GERD (gastroesophageal reflux disease) (K21.9) Active confirmed Problem Essential hypertension (00737246) Essential (primary) hypertension (I10) Active confirmed Problem Hypertension (01269228) HTN (hypertension) (I10) Active confirmed Problem Hyperlipidemia (50954312) Hyperlipidemia (E78.5) Active confirmed Problem Anxiety (44089037) Anxiety (F41.9) Active confi rmed Problem Body mass index 30+ - obesity (050494521) BMI 30.0-30.9,adult (Z68.30) Active confirmed Problem Sciatica (11766335) Lumbago with sciatica, right side (M54.41) Active confirmed Problem Primary insomnia (5108614) Primary insomnia (F51.01) Active confirmed Problem Sciatica (51687457) Lumbago with sciatica, left side (M54.42) Active confirmed Problem Constipation (86628546) Constipation, unspecified constipation type (K59.00) Active confirmed Problem Flatulence, eructation and gas pain (193460108) Bloating (R14.0) Active confirmed Problem Allergic rhinitis (52312204) Allergic rhinitis, unspecified allergic rhinitis type (J30.9) Active confirmed Problem Mild intermittent asthma (381469762) Mild intermittent asthma without complication (J45.20) Active confirmed Problem Leukocytosis (473174267) Leukocytosis, unspecified type (D72.829) Active confirmed Problem Rheumatoid arthritis (34181241) Rheumatoid arthritis involving multiple sites, unspecified rheumatoid factor presence (M06.9) Active confirmed Problem Hyperlipidaemia (46296395) Hyperlipidemia, unspecified hyperlipidemia type (E78.5) Active confirmed Problem Chronic gouty arthritis (69355277) Chronic gout without tophus, unspecified cause, unspecified site (M1A.9XX0) Active confirmed Problem Bursitis of left shoulder (968948575419832) Bursitis of left deltoid (M75.52) Active confirmed Problem Asthma without status asthmaticus (18858280) Asthma, unspecified asthma severity, unspecified whether complicated, unspecified whether persistent (J45.909) Active confirmed Problem Scleroderma (917282407) Scleroderma (M34.9) Active confirmed Problem Rheumatoid arthritis (46604652) Rheumatoid arthritis, involving unspecified site, unspecified whether rheumatoid factor present (M06.9) Active confirmed Vital Signs Heart Rate 102 /min 10/31/2024 Blood pressure diastolic 68 mm Hg 06/24/2025 Height 65 in 06/24/2025 Blood pressure systolic 110 mm Hg 06/24/2025 Weight 180.6 lbs 06/14/2025 BMI 30.05 kg/m2 06/14/2025 Encounters Encounter Location Date Provider Diagnosis [facility] [address] [facility] [address] [place], [place] [id number] 08/10/2024 Sandoval [place] Acute cough R05.1 [facility] [address] [place], [place] [id number] 10/09/2024 Paulette Moreno URI (upper respirato ry infection) J06.9 [facility] [address] [facility] [address] [place], [place] [id number] 10/31/2024 Sandoval [place] HTN (hypertension) I 10 ; Hyperlipidemia E78.5 ; Night sweats R61 and GERD (gastroesophageal reflux disease) K21.9 [facility] [address] [facility] [address] [place], [place] [id number] 05/01/2025 Sandoval [place] HTN (hypertension) I 10 ; Bloating R14.0 ; Asthma, unspecified asthma severity, unspecified whether complicated, unspecified whether persistent J45.909 and BMI 30.0-30.9,adult Z68.30 [facility] [address] [place], [place] [id number] 06/14/2025 [place] Acute cough R05.1 [facility] [address] [facility] [address] [facility] [address] [place], [place] [id number] 06/24/2025 Sandoval [place] Acute cough R05.1 [facility] [address] [facility] [address] [facility] [address] [place], [place] [id number] 11/12/2024 [place] [facility] [address] [facility] [address] [facility] [address] [place], [place] [id number] 01/16/2025 Sandoval [place] HTN (hypertension) I 10 and Asthma, unspecified asthma severity, unspecified whether complicated, unspecified whether persistent J45.909 [facility] [address] [facility] [address] [place], [place] [id number] 05/07/2025 [place] Screening for breast cancer Z12.39 [facility] [address] [facility] [address] [place] [id number] 05/20/2025 Sandoval [place] Assessments Encounter Date Diagnosis (ICD Code) Assessment Notes Treatment Notes Treatment Clinical Notes Section Notes 10/31/2024 HTN (hypertension) (ICD-10 - I10) 10/31/2024 Hyperlipidemia (ICD-10 - E78.5) 01/16/2025 HTN (hypertension) (ICD-10 - I10) 05/01/2025 HTN (hypertension) (ICD-10 - I10) 05/01/2025 Bloating (ICD-10 - R14.0) OTC probiotic recommended 05/07/2025 Screening for breast cancer (ICD-10 - Z12.39) 06/14/2025 Acute cough (ICD-10 - R05.1) 06/24/2025 Acute cough (ICD-10 - R05.1) 08/10/2024 Acute cough (ICD-10 - R05.1) 10/09/2024 URI (upper respiratory infection) (ICD-10 - J06.9) fluids, rest, supportive measures for fever/symptom relief; has an albuterol inhaler at home which she will use bid-tid 05/01/2025 Asthma, unspecified asthma severity, unspecified whether complicated, unspecified whether persistent (ICD-10 - J45.909) 01/16/2025 Asthma, unspecified asthma severity, unspecified whether complicated, unspecified whether persistent (ICD-10 - J45.909) 10/31/2024 Night sweats (ICD-10 - R61) 05/01/2025 BMI 30.0-30.9,adult (ICD-10 - Z68.30) 10/31/2024 GERD (gastroesophageal reflux disease) (ICD-10 - K21.9) Plan Of Treatment Pending Test Test Name Order Date Mammogram 05/07/2025 H-TSH 12/14/2023 H-CMP 12/14/2023 Next Appt Details Provider Name:Sandoval Kern ry, 11/01/2025 11:00:00 AM, [address], [address], [place], [place], [id number], Insurance Providers Payer Name Payer Address Payer Phone Subscriber Number Group Number Insured Name Patient Relationship to Insured Coverage Start Date Coverage End Date [employer] (MEDICAR E) [address] [address] [place] [address] [id number] Mari Clark Self - patient is the insured Medical (General) History Medical History History ICD Code Hypertension Hyperlipidemia Osteoporosis Rheumatoid arthritis, followed by Rheuma kevin Scleroderma Esophageal reflux Post op anemia 01/18, s/p transfusion of 2 units of PRBC Raynaud's asthma COVID 19, Dx: 2019 skin cancer Colon polyps Surgical History Surgery Date(Month/Year) Bilateral Hips Bilateral Knees Bilateral Wrists finger 2 on lt hand one on rt hand LT lbow Colonoscopy 2021, 2021 Cholecystectomy 01/22/2011 RT Wrist Replacement 07/05/2011 Thumb Fused 11/24/2011 RT Thumb Repair 10/17/2012 Cataract x 2 10/2015 Hospitalization History Reason Date(Month/Year) Stomach Pain 12/24/2010
--- OUTSIDE RECORDS SUMMARY | 2025-07-10 09:21 | XMS_ITS | Encounter Summary ---
Author Organization [email or web address] ([place], [place], [place], [place]) Address [address] [place] [address] Care Team Providers Care Pocket Cutter Name Role Phone [facility] Tomasa Harris Primary Care Provider Sandoval Tuttle MD Primary Care Provider [phone] Reason for Referral * Consultation (Routine) - Closed Specialty Diagnoses / Procedures Referred By Sabrina glass Referred To Contact Neurology Diagnoses Pre-operative clearance Osvaldo Sorensen MD [address] [facility] 2nd [place] [address] Phone: [place]: [place] [address] [place] [address] [address] [place] [address] Phone: tel: fax: Referral ID Status Reason Start Date Expiration Date V isits Requested Visits Authorized [id number] Closed Specialty Services Required 06/08/2024 06/08/2025 1 1 Encounter Details Date Type Department Care Team (Late st Contact Info) Description 06/08/2024 Outside Orders [facility] Neurology - [place] [address] [place] [address] Osvaldo Sorensen MD [address] [facility] 2nd [place] [address] Pre-operative clearance (Primary Dx) Social History Tobacco Use Types Packs/Day Years Used Date Smoking Tobacco: Never Assessed Family and Community Support Answer Mehdi e Recorded Help with Day to Day Activities Not on file 06/08/2024 Feeling Lonely or Isolated Not on file 06/08 Educational Attainment Answer Date Moreno rded Speak language other than Irish at home Not on file 06/08/2024 Want [...] examination documented in this encounter Care Teams Pocket Cutter Relationship Specialty Start Date End Date [facility] Connection, [facility] [place] [address] PCP - General 11/05/24 11/13/24 Sandoval Tuttle MD [address] [facility] [address] [place] [address] PCP - General Family Medicine 11/14/24 documented as of this encounter
--- OUTSIDE RECORDS SUMMARY | 2025-07-10 09:21 | XMS_ITS | Referral Summary ---
Author Organization [employer] ([place], [place], [place], [place]) Address [address] [place] [address] Care Team Providers Care Motorsports Technician Name Role Phone Sandoval Tuttle MD Primary Care Provider [phone] Allergies Active Allergy Reactions Criticality Noted Date [...] mg total) by mouth daily. Active pancrelipase, Yrx-Uccj-Vetm, (Creon) 36,000-114,000- 180,000 unit cpDR capsule Take [...] Date Moreno rded Speak language other than Luxembourgish at home Not on file 06/08/2024 Want [...] on file Medical Devices Implanted Type Area Web Press Operator Helper Offset Device Identifier Shelf Expiration Date Model / Serial / Lot Wire C Trcr [id number] Ss [id number] - [id number] Implanted:Qty: 4 on 11/14/2024 by Osvaldo Sorensen MD at [facility] IMPLANTS Right: Hand [employer] 08/07/2029 [id number] / / [id number] Wire C Trcr [id number] Ss [id number] - [id number] Implanted:Qty: 4 on 11/14/2024 by Osvaldo Sorensen MD at [facility] IMPLANTS Right: Hand [employer] 11/07/2028 [id number] / / [id number] Insurance [facility] MEDIC[facility] HMO Advance Directives For more information, please contact: [phone] * Full Code (Latest Code Status on File) Date Activated Date Inactivated Comments 11/14/2024 9:15 AM 11/14/2024 4:25 PM Care Teams Motorsports Technician Relationship Specialty Start Date End Date Sandoval Tuttle MD [address] [facility] [address] [place] [address] PCP - General Family Medicine 11/14/24
== END 2025-07-10 23:59 | disposition home or self-care (01) ==
LOC: RAD 09:03
PROVIDERS: PCP Family Medicine; Visit Provider Internal Medicine Rheumatology
DX: M81.0 Age-related osteoporosis without current pathological fracture (principal); Z78.0 Asymptomatic menopausal state
CPT/HCPCS: 77080

== ENCOUNTER 2025-08-08 09:36 | Outpatient (CLI) | payer MEDICARE, SELFPAY ==
--- OUTSIDE RECORDS SUMMARY | 2024-05-02 06:15 | XMS_ITS ---
Author Organization [facility] Address [facility] [address] [place] [id number] Care Team Providers Care Applications Engineer Manufacturing Name Role Phone Sandoval Tuttle Primary Care [...] 05/02/2024 Encounters Encounter Location Date Provider Diagnosis [facility]10 [facility] 36 [facility] [address] [place], [place] [id number] 05/02/2024 Sandoval Tuttle Dizziness R42 and Asthma, [...] Name:Sandoval Kern ry, 11/01/2025 11:00:00 AM, 1210 [facility] 36 [facility], [address], [place], [place], [address], Progress Notes * Yuliana PIERCEeDOB: (64 yo F)Acc No.[id number]:05/02/2024 Progress Notes Patient: Mari HILARIO Provider: Eliot Tuttle M.D. :1960 A ge:63 Y S ex:Female Date:05/02/2024 Address:[address] [place], [place] [phone] Subjective: * Chief Complaints: * 1 . [...] * Images: Billing Information: * Visit Code: 90913 Office Visit, Est Pt., Level 3. * Procedure Codes: G2211 Complex e/m visit add on. * Electronic signature of Alice Tuttle MD on 08/08/2025 at 10:03 AM EDT Sign off status: Pending * Provider: Eliot Tuttle M.D. Date: 0 05/02/2024 Generated for Marci khalil/Octavia/Elliotranrafael on: 1 10:03 AM EDT History and Physical Notes * HPI (History [...]
--- OUTSIDE RECORDS SUMMARY | 2024-05-17 07:30 | XMS_ITS ---
Author Organization [facility] Address [facility] [address] [place] [phone] Care Team Providers Care Sand Filler Name Role Phone Sandoval Tuttle Primary Care Provider REASON FOR VISIT 6 month check up Encounters Encounter Location Date Provider Diagnosis [facility] [address] [place] [id number] 05/17/2024 Sandoval Tuttle Plan Of Treatment Next Appt Details Provider Name:Sandoval Kern ry, 11/01/2025 11:00:00 AM, [address], [address], [place], [place], [phone], Progress Notes * Yuliana PIERCEeDOB: (64 yo F)Acc No.[id number]:05/17/2024 Progress Notes Patient: Mari HILARIO Provider: Eliot Tuttle M.D. :1960 A ge:63 Y S ex:Female Date:05/17/2024 [facility] Subjective: * Chief Complaints: * 1 . 6 month check up. * Medical History: Objective: * Vitals: Assessment: Plan: * Treatment: * Images: Billing Information: * Visit Code: * Procedure Codes: * Electronic signature of Alice Tuttle MD on 08/08/2025 at 10:04 AM EDT Sign off status: Pending * Provider: Eliot Tuttle M.D. Date: 0 05/17/2024 Generated for Pamelai simran/Octavia/eTransmitting on: 1 10:04 AM EDT
--- OUTSIDE RECORDS SUMMARY | 2024-08-10 11:15 | XMS_ITS ---
Author [facility] [address] [phone] Care Team Providers Care Pencil Sorter Name Role Phone Sandoval Tuttle Primary Care [...] 08/10/2024 Encounters Encounter Location Date Provider Diagnosis [facility]10 [facility] [address] [id number] 08/10/2024 Sandoval Tuttle Acute cough R 05.1 [address], [place], [phone], Progress Notes * Yuliana PIERCEeDOB: 1 (64 yo F)Acc No.[id number]:08/10/2024 Progress Notes Patient: Mari HILARIO Provider: Eliot Tuttle M.D. :1960 A ge:63 Y S ex:Female Date:08/10/2024 [facility] Subjective: * Chief Complaints: * 1 . [...] lat 357 100 - 400 * Lisbeth Muri 08/10/2024 4:04:07 PM > , Provider reviewed results while patient in office. * Procedure Codes: G 2211 Complex e/[place], [address] CAPILLARY BLOOD DRAW, 90619 CBC WITH AUTO DIFF * Follow Up: p rn * Images: Billing Information: * Visit Code: 97676 Office Visit, Est Pt., Level 3. * Procedure Codes: G2211 Complex e/[place]. [address] CAPILLARY BLOOD DRAW. 89442 CBC WITH AUTO DIFF. * Electronic signature of Alice Tuttle MD on 08/08/2025 at 10:03 AM EDT Sign off status: Pending * Provider: Eliot Tuttle M.D. Date: 10/10/2023 Generated for Marci khalil/Octavia/Kellenitting on: 10:03 AM EDT History and Physical Notes [...]
--- OUTSIDE RECORDS SUMMARY | 2024-08-22 06:30 | XMS_ITS ---
Author Organization [facility] Address 1210 [facility] 36 [facility] [address] [place] [phone] Care Team Providers Care Turbine Room Attendant Name Role Phone Sandoval Tuttle Primary Care Provider REASON FOR VISIT ear ache ,dry cough Encounters Encounter Location Date Provider Diagnosis [facility] [address] [place] [id number] 08/22/2024 Sandoval Tuttle Plan Of Treatment Next Appt Details Provider Name:Sandoval Kern ry, 11/01/2025 11:00:00 AM, [address], [address], [place], [place], [id number], Progress Notes * Yuliana PIERCEeDOB: (64 yo F)Acc No.[id number]:08/22/2024 Progress Notes Patient: Mari HILARIO Provider: Eliot Tuttle M.D. :1960 A ge:63 Y S ex:Female Date:08/22/2024 [facility] Subjective: * Chief Complaints: * 1 . Ear ache ,dry cough. * Medical History: Objective: * Vitals: Assessment: Plan: * Treatment: * Images: Billing Information: * Visit Code: * Procedure Codes: * Electronic signature of Alice Tuttle MD on 08/08/2025 at 10:02 AM EDT Sign off status: Pending * Provider: Eliot Tuttle M.D. Date: 10/22/2023 Generated for Marci khalil/Faxing/eTransmitting on: 1 10:02 AM EDT
--- OUTSIDE RECORDS SUMMARY | 2024-10-09 05:45 | XMS_ITS ---
Author Organization [facility] Address [facility] [address] [place] [phone] Care Team Providers Care Band Saw Runner Name Role Phone Sandoval Tuttle Primary Care Provider Paulette Moreno Unavailable [phone] Allergies Allergen (clinical drug ingredient) Drug/Non Drug [...] 10/09/2024 Encounters Encounter Location Date Provider Diagnosis [facility] [facility] [address] [phone] 10/09/2024 Paulette Moreno URI (upper respirato ry [...] [address] , [place], [place], [phone], Progress Notes * Yuliana PIERCEeDOB: (64 yo F)Acc No.[id number]:10/09/2024 Progress Notes Patient: Mari HILARIO Provider: JEFF Hu :1960 A ge:63 Y S ex:Female Date:10/09/2024 Address:[address] [place], [place] [address] Pcp:Sandoval Tuttle Subjective: * Chief Complaints: * [...] G 2211 Complex e/[place], [address] Flu Test- Nasal Swab, Modifiers: QW , 24091 COVID TEST IN HOUSE, Modifiers: QW , 3074F SYST BP LT 130 MM HG, 3078F DIAST BP < 80 MM HG * Follow Up: p rn * Images: Billing Information: * Visit Code: 38357 Office Visit, Est Pt., Level 3. * Procedure Codes: G2211 Complex e/[place]. [address] Flu Test- Nasal Swab. Modifiers: QW 70346 COVID TEST IN HOUSE. Modifiers: QW 3074F SYST BP LT 130 MM HG. 3078F DIAST BP < 80 MM HG. * Electronic signature of Lynn yunstephen Moreno , TONYA on 08/08/2025 at 10:02 AM EDT Sign off status: Pending * Provider: JEFF Hu Date: Generated for Marci khalil/Octavia/eTransmitting on: 10:02 AM EDT History and Physical Notes * [...]
--- OUTSIDE RECORDS SUMMARY | 2024-10-31 06:00 | XMS_ITS ---
Author Organization [facility] Address [facility] [address] [phone] Care Team Providers Care Manager Shipping Name Role Phone Sandoval Ttutle Primary Care Provider Allergies Allergen (clinical drug [...] Provider Diagnosis [facility] [address] [phone] 10/31/2024 Sandoval Tuttle HTN (hypertension) I 10 [...] [place] ry, 11/01/2025 11:00:00 AM, [address] [facility] [address], [place], [place], [phone], Progress Notes * Yuliana PIERCEeDOB: (64 yo F)Acc No.[id number]:10/31/2024 Progress Notes Patient: Mari HILARIO Provider: Eliot Tuttle M.D. :1960 A ge:63 Y S ex:Female Date:10/31/2024 Address:[address] [place], [place] [phone] Subjective: * Chief Complaints: * 1 . [...] * Images: Billing Information: * Visit Code: 88027 Office Visit, Est Pt., Level 4. * Procedure Codes: G2211 Complex e/m visit add on. * Electronic signature of Alice Tuttle MD on 08/08/2025 at 10:05 AM EDT Sign off status: Pending * Provider: Eliot Tuttle M.D. Date: 0 10/31/2024 Generated for Marci khalil/Octavia/Holly on: 10:05 AM EDT History and Physical Notes * [...]
--- OUTSIDE RECORDS SUMMARY | 2025-05-01 07:30 | XMS_ITS ---
Author Organization [facility] Address 1210 [facility] [address] [place] [phone] Care Team Providers Care Biochemistry Technician Name Role Phone Sandoval Tuttle Primary Care [...] Problem Body mass index 30+ - obesity (342645134) BMI 30.0-30.9,a dult (Z68.30) Active confirmed Vital Signs Blood pressure systolic 102 mm Hg 05/01/20 25 Blood pressure diastolic 60 mm Hg 025 Height 65 in 05/01/2025 Weight 181 lbs 05/01/2025 BMI 30.12 kg/m2 05/01/2025 Encounters Encounter Location Date Provider Diagnosis [facility] [address] [place] [phone] 05/01/2025 Sandoval Tuttle HTN (hypertension) I 10 [address], [place], [phone], Progress Notes * Papa PIERCEOB: 1 (64 yo F)Acc No.[id number]:05/01/2025 Progress Notes Patient: Mari HILARIO Provider: Eliot Tuttle M.D. :1960 A ge:64 Y S ex:Female Date:05/01/2025 Address:[address] [place] [address] Subjective: * Chief Complaints: * 1 . [...] whether persistent - J45.909 4 . B DC 30.0-30.9,adult - Z68.30 Plan: * Treatment: 2. B loating Notes: OTC probiotic recommended * Procedure Codes: G 2211 Complex e/m visit add on, 1036F TOBACCO NON-USER, G8950 PREHTN/HTN BP DOC INDCD F/U DOC, G8752 MOST RECENT SYSTOLIC BP < 140MM HG, G8754 MOST RECENT DIASTOLIC BP < 90MM HG * Follow Up: 6 Months * Images: Billing Information: * Visit Code: 64336 Office Visit, Est Pt., Level 3. * [...] 05/01/2025 Generated for Marci khalil/Octavia/Elliotransmitting on: 1 10:03 AM EDT History and [...]
--- OUTSIDE RECORDS SUMMARY | 2025-06-14 07:30 | XMS_ITS ---
Author Organization [facility] Address [facility] [address] [place] [phone] Care Team Providers Care Mail Processing Clerk Name Role Phone Sandoval Tuttle Primary Care Provider [phone] Allergies Allergen (clinical drug ingredient) Drug/Non Drug [...] 06/14/2025 Encounters Encounter Location Date Provider Diagnosis [facility] 1210 [facility] 36 [facility] [address] [place], [place] [phone] 06/14/2025 Sandoval Tuttle Acute cough R 05.1 [...] Name:Sandoval Kern ry, 11/01/2025 11:00:00 AM, 1210 [facility] 36 [facility], [address], [place], [place], [phone], Progress Notes * Yuliana PIERCEeDOB: 1 (64 yo F)Acc No.[id number]:06/14/2025 Progress Notes Patient: Mari HILARIO Provider: Eliot Tuttle M.D. :1960 A ge:64 Y S ex:Female Date:06/14/2025 Address:[address] [place], [place] [phone] Subjective: * Chief Complaints: * 1 . [...] G 2211 Complex e/[place], [address] CBC WITH AUTO DIFF, 93582 VENIPUNCT, ROUTINE*, 1036F TOBACCO NON-USER, G8752 MOST RECENT SYSTOLIC BP < 140MM HG, G8754 MOST RECENT DIASTOLIC BP < 90MM HG, G8783 BP SCR PRFRM RCMDD DEFIND SCR INTVL * Follow Up: v ia phone to report progress * Images: Billing Information: * Visit Code: 43714 Office Visit, Est Pt., Level 3. * Procedure Codes: G2211 Complex e/[place]. [address] CBC WITH AUTO DIFF. 67536 VENIPUNCT, ROUTINE*. 1036F TOBACCO NON-USER. G8752 MOST RECENT SYSTOLIC BP < 140MM HG. G8754 MOST RECENT DIASTOLIC BP < 90MM HG. G8783 BP SCR PRFRM RCMDD DEFIND SCR INTVL. * Electronic signature of Alice Ttutle MD on 08/08/2025 at 10:02 AM EDT Sign off status: Pending * Provider: Eliot Tuttle M.D. Date: 0 06/14/2025 Generated for Marci khalil/Octavia/eTransmitting on: 1 10:02 AM EDT History and Physical Notes [...] Heart: RSR Lungs: good air entry bilat kourtney coarse breath sounds present Extremities: contractures noted i n hands General Appearance: NAD, sitting in a wh eel chair Skin: no rash Oral cavity: minimal erythema Back: dorsal kyphosis
--- OUTSIDE RECORDS SUMMARY | 2025-06-24 10:15 | XMS_ITS ---
Author Organization [facility] Address [facility] [address] [place] [phone] Care Team Providers Care Pin Worker Name Role Phone Sandoval Tuttle Primary [...] 06/24/2025 Encounters Encounter Location Date Provider Diagnosis [facility] [facility] 36 [facility] [address] [place] [id number] 06/24/2025 Sandoval Tuttle Acute cough R 05.1 [...] 11/01/2025 11:00:00 AM, [address] [facility], [address], [place], [id number], Progress Notes * Papa PIERCEOB: 1 (64 yo F)Acc No.[id number]:06/24/2025 Progress Notes Patient: Mari HILAIRO Provider: Eliot Tuttle M.D. :1960 A ge:64 Y S ex:Female Date:06/24/2025 [address] Subjective: * Chief Complaints: * 1 . [...] G 2211 Complex e/[place], [address] CBC WITH AUTO DIFF, 43873 VENIPUNCT, ROUTINE*, 1036F TOBACCO NON-USER, G8783 BP SCR PRFRM RCMDD DEFIND SCR INTVL, G8752 MOST RECENT SYSTOLIC BP < 140MM HG, G8754 MOST RECENT DIASTOLIC BP < 90MM HG, 3074F SYST BP LT 130 MM HG, 3078F DIAST BP < 80 MM HG * Follow Up: v ia phone to report progress * Images: Billing Information: * Visit Code: 07396 Office Visit, Est Pt., Level 3. * Procedure Codes: G2211 Complex e/[place]. [address] CBC WITH AUTO DIFF. 39565 VENIPUNCT, ROUTINE*. 1036F TOBACCO NON-USER. G8783 BP [...] 06/24/2025 Generated for Marci khalil/Octavia/eTkacysmitting on: 1 10:04 AM EDT History and Physical Notes * [...]
--- OUTSIDE RECORDS SUMMARY | 2025-08-08 10:02 | XMS_ITS | Clinical Summary ---
[facility] Organization [facility] Address [address] [place] [address] Care Team Providers Care [facility] Name Role Phone Sandoval Tuttle MD Primary Care Provider [phone] Social History Tobacco Use Types Packs/Day Years [...] 07/10/2018 HEPATITIS C SCREENING Completed 05/14/2020 Insurance [facility] MEDICARE ADVANTAGE Care Teams [facility] Relationship Specialty Start Date End Date Sandoval Tuttle MD [address] [facility] [address] [place] [address] PCP - General Family Medicine 01/06/23
--- OUTSIDE RECORDS SUMMARY | 2025-08-08 10:02 | XMS_ITS | Clinical Summary ---
Author Organization [facility] Address [address] [facility] [place] [address] Phone Care Team Providers Care Deck Scaler Name Role Phone Osvaldo Sorensen MD Unavailable [phone] LONNIE SOLANO Primary Care Provider [phone] Reason for Visit and Chief Complaint Follow Up Problems Includes: Problems addressed during this encounter and other active Problems All Visits Onset Date Resolved Date Provider Condition S tatus Joint Pain Wrist Right 02/09/2024 Michell Philip APRN Active Last Documented On 4 10:10AM ; [facility], [facility] Joint Pain Shoulder 10/17/2012 Osvaldo olson MD Active Last Documented On 3 12:57PM ; [facility], [facility] Joint Pain Hip 09/26/2012 Chelsea Slater MD Ac tive Last Documented On 2 1:28PM ; [facility], [facility] Plan of Treatment Future Appointments Date Time Location Provi evonne Follow Up 08/08/2025 11:00AM [facility] Osvaldo Sorensen MD Last Documented On 5 9:50AM ; [facility], [facility] Assessments Includes: Assessments from this encounter No Assessments Recorded Medical Equipment - Implanted Devices Includes: Current Devices No Medical Equipment Recorded Medications Includes: Medications discussed during this encounter and other current Medications Current Medications (continue as prescribed) Fluticasone Propionate 50 MC G/ACT Nasal Suspension 04/02/2025 Provider: LONNIE SOLANO Diagnosis: Last Documented On 5 9:26AM By Gerry Willis ; [facility], [facility] Fluconazole 100 MG Oral Tablet 04/01/2025 Provider: Diagnosis: Last Documented On 5 9:26AM By Gerry Willis ; [facility], [facility] Albuterol Sulfate HFA 108 (9 0 Base) MCG/ACT Inhalation Aerosol Solution 03/11/2025 Provider: Diagnosis: Last Documented On 5 9:26AM By Gerry Willis ; [facility], [facility] Nystatin 091147 UNIT/ML Mouth/Throat Suspension 2024 Provider: Diagnosis: Last Documented On 5 9:26AM By Gerry Willis ; [facility], [facility] Omeprazole 40 MG Oral Capsule Delayed Release 02/12/20 Provider: LONNIE SOLANO Diagnosis: Last Documented On 5 9:26AM By Gerry Willis ; [facility], [facility] busPIRone HCl 10 MG Oral Tablet 02/11/2025 Provider: LONNIE KIRANGLO Diagnosis: Last Documented On 5 9:26AM By Gerry Willis ; [facility], [facility] predniSONE 5 MG Oral Tablet 02/08/2025 Provider: Dagmar Lundberg MD Diagnosis: Last Documented On 5 9:26AM By Gerry Willis ; [facility], [facility] Folic Acid 1 MG Oral Tablet 02/08/2025 Provider: Dagmar Lundberg MD Diagnosis: Last Documented On 5 9:26AM By Gerry Willis ; [facility], [facility] Methotrexate Sodium 2.5 MG Oral Tablet 02/08/2025 Pr ovider: Dagmar Lundberg MD Diagnosis: Last Documented On 5 9:26AM By Gerry Willis ; [facility], [facility] Atorvastatin Calcium 40 MG Oral Tablet 10/21/2024 Pr ovider: CHELSEA FORDE MD Diagnosis: Last Documented On 5 1:13PM By Addison Preston ; [facility], [facility] predniSONE 5 MG Oral Tablet 10/19/2024 Provider: Dagmar Lundberg MD Diagnosis: Last Documented On 5 1:13PM By Addison Preston ; [facility] Azithromycin 250 MG Oral Tablet 10/09/2024 Provider: Paulette Moreno APRN Diagnosis: Last Documented On 5 1:13PM By Addison Preston ; [facility] Symbicort 80-4.5 MCG/ACT Inhalation Aerosol 10/05/2024 Provider: LONNIE SOLANO Diagnosis: Last Documented On 5 1:13PM By Addison Preston ; [facility] Montelukast Sodium 10 MG Oral Tablet 09/13/2024 Prov ider: CHELSEA FORDE MD Diagnosis: Last Documented On 5 1:13PM By Addison Preston ; [facility] Metoclopramide HCl 10 MG Oral Tablet 09/13/2024 Prov ider: LONNIE SOLANO Diagnosis: Last Documented On 5 1:13PM By Addison Preston ; [facility] Furosemide 40 MG Oral Tablet 09/13/2024 Provider: LONNIE SOLANO Diagnosis: Last Documented On 5 1:13PM By Addison Preston ; [facility] Lisinopril 10 MG Oral Tablet 09/13/2024 Provider: CHELSEA FORDE MD Diagnosis: Last Documented On 5 1:13PM By Addison Preston ; [facility] Verapamil HCl 80 MG Oral Tablet 09/13/2024 Provider: CHELSEA FORDE MD Diagnosis: Last Documented On 5 1:13PM By Addison Preston ; [facility] Medications Administered Includes: Administered Medications from this encounter No Administered Medications Recorded Results Includes: Results discussed during this encounter No Results Recorded For Specified Dates History of Present Illness Includes: History of Present Illness from this encounter No History of Present Illness Recorded Social History No Social History Recorded - Smoking Status Unknown Procedures and Surgical History Includes: Procedures from this encounter Procedures Code Diagnosis Performing Provider Service Location Service Date OT Eval - Mod Complexity (Occupational therapy) 39796 Other specified rheumatoid arthritis, right hand Genny Harris OT [facility] 11/15/2024 Last Documented On 5 12:02PM ; [facility] SELF CARE MNGMENT TRAINING (Occupational therapy) 7[address] Other specified rheumatoid arthritis, right hand Genny Ashtonmings OT [facility] 11/15/2024 Last Documented On 5 12:02PM ; [facility] Wrist hand finger orthosis, rigid without joints, february (RIGHT) L3808 Other specified rheumatoid arthritis, right hand Genny Harris OT [facility] 11/15/2024 Last Documented On 5 12:02PM ; [facility] Medical History Includes: Medical History addressed during this encounter No Medical History Recorded Family History Includes: Family History addressed during this encounter No Family History Recorded Review of Systems Includes: Review of Systems from this encounter No Review of Systems Recorded Mental Status Includes: Mental Status from this encounter No Mental Status Recorded Functional Status Includes: Functional Status from this encounter No Functional Status Recorded Physical Exam Includes: Physical Exam from this encounter No Physical Exam Recorded Allergies Includes: Active Allergies Substance Type Reaction Onset Date Resolved Date Statu s Penicillins Allergy 03/04/2006 Active Last Documented On 5 9:25AM ; [facility] Encounters Encounter Provider Location Date Check-In Time Check-Out Time Diagnosis Follow Up [facility] 11/15/2024 2:24PM 11:59PM Insurance Includes: Active Insurance Policies Plan Name Member ID Group # Subscriber Relationship Effect apryl Dates 1 - [employer] [id number] Mari gasca Clinical Notes Includes: Clinical Notes from this encounter No Clinical Notes Recorded
--- OUTSIDE RECORDS SUMMARY | 2025-08-08 10:03 | XMS_ITS ---
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 Name Role Phone Osvaldo Sorensen MD Unavailable [phone] LONNIE SOLANO Primary Care Provider [phone] Problems Includes: Active, inactive, and resolved Problems All Visits Onset Date Resolved Date Provider Condition S tatus Joint Pain Wrist Right 02/09/2024 Michell Philip APRN Active Last Documented On 4 10:10AM ; [facility] Joint Pain Shoulder 10/17/2012 Osvaldo olson MD Active Last Documented On 3 12:57PM ; [facility], [facility] Joint Pain Hip 09/26/2012 Chelsea Slater MD Ac tive Last Documented On 2 1:28PM ; [facility], [facility] Plan of Treatment Findings Encounter Date Patient screened for future fall risk: documentation of any fall with injury in past year Follow Up with Osvaldo Sorensen MD 04/05/2024 Last Documented On 4 4:20PM ; [facility], [facility] Ordered weight loss diet Follow Up with Jose Long MD 05/14/2013 Last Documented On 4 2:18PM ; [facility] Ordered weight loss diet Post Op with Osvaldo Sorensen MD 11/30/2012 Last Documented On 3 11:34AM ; [facility] Ordered weight loss diet Follow Up with Chelsea saenz MD 09/26/2012 Last Documented On 3 3:21PM ; [facility] Ordered weight loss diet NEW PROBLEM/EST PT with Chelsea Slater MD 08/22/2012 Last Documented On 3 3:21PM ; [facility] Future Appointments Date Time Location Provi evonne Follow Up 08/08/2025 11:00AM [facility] Osvaldo Sorensen MD Last Documented On 5 9:50AM ; [facility] Instructions to patient Lose weight Last Documented On 5 9:27AM ; [facility] Lose weight Last Documented On 5 11:18AM ; [facility] Lose weight Last Documented On 5 1:58PM ; [facility] Lose weight Last Documented On 5 10:25AM ; [facility] Lose weight Last Documented On 5 1:13PM ; [facility] Lose weight Last Documented On 4 11:22AM ; [facility] Lose weight Last Documented On 4 1:29PM ; [facility] Lose weight Last Documented On 4 2:15PM ; [facility] Lose weight Last Documented On 4 12:56PM ; [facility] Lose weight Last Documented On 4 10:12AM ; [facility] Instructions for patient See PCP for bp Last Documented On 0 9:29AM ; [facility] Lose weight Last Documented On 0 9:29AM ; [facility] Instructions for patient See PCP for bp Last Documented On 0 1:35PM ; [facility] Lose weight Last Documented On 0 1:20PM ; [facility] Instructions for patient cait ght loss diet plan with pcp Last Documented On 4 3:19PM ; [facility] Lose weight Last Documented On 4 3:19PM ; [facility] Instructions for patient cait ght loss diet plan with pcp Last Documented On 3 11:15AM ; [facility] Lose weight Last Documented On 3 11:15AM ; [facility] Instructions for patient Last Documented On 3 1:31PM ; [facility] Lose weight Last Documented On 3 1:31PM ; [facility] No intervention and counseli ng on cessation of tobacco use Last Documented On 3 11:03AM ; [facility] Instructions for patient Last Documented On 2 1:29PM ; [facility] Lose weight Last Documented On 2 1:29PM ; [facility] Instructions for patient Last Documented On 2 11:08AM ; [facility] Lose weight Last Documented On 2 11:08AM ; [facility] Education and Decision Aids were provided during visit for: Education and counseling Last Documented On 0 9:29AM ; [facility] The patient will lose weight Last Documented On 0 9:29AM ; [facility] Education and counseling Last Documented On 0 1:20PM ; [facility] The patient will lose weight Last Documented On 0 1:20PM ; [facility] Education and counseling Last Documented On 4 3:19PM ; [facility] The patient will lose weight Last Documented On 4 3:19PM ; [facility] Education and counseling Last Documented On 3 11:15AM ; [facility] The patient will lose weight Last Documented On 3 11:15AM ; [facility] Education and counseling Last Documented On 3 1:31PM ; [facility] Assessments Includes: Assessments for all patient encounters Findings Encounter Date Overweight Follow Up with Osvaldo Waggoner to 04/25/2025 Last Documented On 5 9:17AM ; [facility] Overweight Follow Up with Osvaldo Waggoner to 04/18/2025 Last Documented On 5 2:29PM ; [facility] Overweight Post Op with Osvaldo Sorensen MD 01/22/2025 Last Documented On 5 11:42AM ; [facility] Overweight Follow Up with Osvaldo Waggoner to 11/01/2024 Last Documented On 5 3:48PM ; [facility] Overweight Post Op with Michell ROSAS RN 08/21/2024 Last Documented On 4 11:44AM ; [facility] Overweight Follow Up with Osvaldo Waggoner to 06/19/2024 Last Documented On 4 12:44PM ; [facility] Overweight Follow Up with Osvaldo Waggoner to 04/05/2024 Last Documented On 4 4:20PM ; [facility] Overweight Physician Specified with Michell Philip APRN 02/09/2024 Last Documented On 4 10:11AM ; [facility] Instructions Includes: Instructions for all patient encounters Instructions to patient Lose weight Last Documented On 5 9:27AM ; [facility] Lose weight Last Documented On 5 11:18AM ; [facility] Lose weight Last Documented On 5 1:58PM ; [facility] Lose weight Last Documented On 5 10:25AM ; [facility] Lose weight Last Documented On 5 1:13PM ; [facility] Lose weight Last Documented On 4 11:22AM ; [facility] Lose weight Last Documented On 4 1:29PM ; [facility] Lose weight Last Documented On 4 2:15PM ; [facility] Lose weight Last Documented On 4 12:56PM ; [facility] Lose weight Last Documented On 4 10:12AM ; [facility] Instructions for patient See PCP for bp Last Documented On 0 9:29AM ; [facility] Lose weight Last Documented On 0 9:29AM ; [facility] Instructions for patient See PCP for bp Last Documented On 0 1:35PM ; [facility] Lose weight Last Documented On 0 1:20PM ; [facility] Instructions for patient cait ght loss diet plan with pcp Last Documented On 4 3:19PM ; [facility] Lose weight Last Documented On 4 3:19PM ; [facility] Instructions for patient cait ght loss diet plan with pcp Last Documented On 3 11:15AM ; [facility] Lose weight Last Documented On 3 11:15AM ; [facility] Instructions for patient Last Documented On 3 1:31PM ; [facility] Lose weight Last Documented On 3 1:31PM ; [facility] No intervention and counseli ng on cessation of tobacco use Last Documented On 3 11:03AM ; [facility] Instructions for patient Last Documented On 2 1:29PM ; [facility] Lose weight Last Documented On 2 1:29PM ; [facility] Instructions for patient Last Documented On 2 11:08AM ; [facility] Lose weight Last Documented On 2 11:08AM ; [facility] Education and Decision Aids were provided during visit for: Education and counseling Last Documented On 0 9:29AM ; [facility] The patient will lose weight Last Documented On 0 9:29AM ; [facility] Education and counseling Last Documented On 0 1:20PM ; [facility] The patient will lose weight Last Documented On 0 1:20PM ; [facility] Education and counseling Last Documented On 4 3:19PM ; [facility] The patient will lose weight Last Documented On 4 3:19PM ; [facility], [facility] Education and counseling Last Documented On 3 11:15AM ; [facility] The patient will lose weight Last Documented On 3 11:15AM ; [facility] Education and counseling Last Documented On 3 1:31PM ; [facility] Medical Equipment - Implanted Devices Includes: Current and historical Devices No Medical Equipment Recorded Medications Includes: Current and historical Medications Current Medications (continue as prescribed) Fluticasone Propionate 50 MC G/ACT Nasal Suspension 04/02/2025 Provider: LONNIE SOLANO Diagnosis: Last Documented On 5 9:26AM By Gerry Willis ; [facility] Fluconazole 100 MG Oral Tablet 04/01/2025 Provider: Diagnosis: Last Documented On 5 9:26AM By Gerry Willis ; [facility] Albuterol Sulfate HFA 108 (9 0 Base) MCG/ACT Inhalation Aerosol Solution 03/11/2025 Provider: Diagnosis: Last Documented On 5 9:26AM By Gerry Willis ; [facility] Nystatin [id number] UNIT/ML Mouth/Throat Suspension 2024 Provider: Diagnosis: Last Documented On 5 9:26AM By Gerry Willis ; [facility] Omeprazole 40 MG Oral Capsule Delayed Release 02/12/20 25 Provider: LONNIE SOLANO Diagnosis: Last Documented On 5 9:26AM By Gerry Willis ; [facility] busPIRone HCl 10 MG Oral Tablet 02/11/2025 Provider: LONNIE SOLANO Diagnosis: Last Documented On 5 9:26AM By Gerry Willis ; [facility] predniSONE 5 MG Oral Tablet 02/08/2025 Provider: Dagmar Lundberg MD Diagnosis: Last Documented On 5 9:26AM By Gerry Willis ; [facility] Folic Acid 1 MG Oral Tablet 02/08/2025 Provider: Dagmar Lundberg MD Diagnosis: Last Documented On 5 9:26AM By Gerry Willis ; [facility] Methotrexate Sodium 2.5 MG Oral Tablet 02/08/2025 Pr ovider: Dagmar Lundberg MD Diagnosis: Last Documented On 5 9:26AM By Gerry Willis ; [facility] Atorvastatin Calcium 40 MG Oral Tablet 10/21/2024 Pr ovider: CHELSEA FORDE MD Diagnosis: Last Documented On 5 1:13PM By Addison Preston ; [facility] predniSONE 5 MG Oral Tablet 10/19/2024 Provider: Dagmar Lundberg MD Diagnosis: Last Documented On 5 1:13PM By Addison Preston ; [facility] Azithromycin 250 MG Oral Tablet 10/09/2024 Provider: Paulette Moreno APRN Diagnosis: Last Documented On 5 1:13PM By Addison Preston ; [facility] Symbicort 80-4.5 MCG/ACT Inhalation Aerosol 10/05/2024 Provider: LONNIE SOLANO Diagnosis: Last Documented On 5 1:13PM By Addison Preston ; [facility] Montelukast Sodium 10 MG Oral Tablet 09/13/2024 Prov ider: CHELSEA FORDE MD Diagnosis: Last Documented On 5 1:13PM By Addison Preston ; [facility] Metoclopramide HCl 10 MG Oral Tablet 09/13/2024 Prov ider: LONNIE BECKBERRY Diagnosis: Last Documented On 5 1:13PM By Addison Preston ; [facility] Furosemide 40 MG Oral Tablet 09/13/2024 Provider: LONNIE SOLANO Diagnosis: Last Documented On 5 1:13PM By Addison Preston ; [facility] Lisinopril 10 MG Oral Tablet 09/13/2024 Provider: CHELSEA FORDE MD Diagnosis: Last Documented On 5 1:13PM By Addison Preston ; [facility] Verapamil HCl 80 MG Oral Tablet 09/13/2024 Provider: CHELSEA FORDE MD Diagnosis: Last Documented On 5 1:13PM By Addison Preston ; [facility] Past Medications on file Magic Mouthwash (L/N/B/M) Oral Solution 11/20/2024 - 11/26/2024 Provider: Osvaldo olson MD Diagnosis: swish, gargle spit 1-2 teasp oons (5-10 mL) every 4-6 hours as needed Last Documented On 10:33AM By Dr. Sorensen ; [facility] Vitamin C 1000 MG Oral Tablet 11/12/2024 - 01/11/2025 Provider: Osvaldo olson MD Diagnosis: once a day take 1 tablet once daily post surgery Last Documented On 12:55PM By Lita Barrera ; [facility] Naproxen 500 MG Oral Tablet 11/12/2024 - 12/12/2024 Pr ovider: Osvaldo Sorensen MD Diagnosis: take one tablet twice a day prn following surger y Last Documented On 12:55PM By Lita Barrera ; [facility] HYDROcodone-Acetaminophen 7. 5-325 MG Oral Tablet 11/12/2024 - 11/15/2024 Provider: Osvaldo Sorensen MD Diagnosis: 1 tab every 6 hrs prn pain Last Documented On 12:55PM By Dr. Sorensen ; [facility] Vitamin C 1000 MG Oral Tablet 08/03/2024 - 10/02/2024 Provider: Osvaldo olson MD Diagnosis: once a day take 1 tablet once daily post surgery Last Documented On 4 9:39AM By Lita Barrera ; [facility] Naproxen 500 MG Oral Tablet 08/03/2024 - 09/02/2024 Pr ovider: Osvaldo Sorensen MD Diagnosis: take one tablet twice a day prn following surger y Last Documented On 4 9:39AM By Lita Barrera ; [facility] Lisinopril 10 MG Oral Tablet 02/06/2024 - 11/01/2024 Ace ramos: CHELSEA FORDE MD Diagnosis: Last Documented On 5 1:12PM By Addison Preston ; [facility] Metoclopramide HCl 10 MG Oral Tablet 02/06/2024 - 10/11 Provider: LONNIE SOLANO Diagnosis: Last Documented On 1:12PM By Addison Preston ; [facility] Furosemide 40 MG Oral Tablet 02/06/2024 - 11/01/2024 P rovider: LONNIE SOLANO Diagnosis: Last Documented On 1:13PM By Addison Preston ; [facility] busPIRone HCl 10 MG Oral Tablet 02/06/2024 - Provider: LONNIE BECKGLO Diagnosis: Last Documented On 1:13PM By Addison Preston ; [facility] Omeprazole 40 MG Oral Capsul e Delayed Release 02/06/2024 - 11/01/2024 Provider: LONNIE SOLANO Diagnosis: Last Documented On 1:12PM By Addison Preston ; [facility] Verapamil HCl 80 MG Oral Tablet 02/06/2024 - 11/01/2024 Provider: CHELSEA MICHELE MD Diagnosis: Last Documented On 1:12PM By Addison Preston ; [facility] Montelukast Sodium 10 MG Oral Tablet 02/06/2024 - 11/01/2024 Provider: CHELSEA MICHELE MD Diagnosis: Last Documented On 1:12PM By Addison Preston ; [facility] Atorvastatin Calcium 40 MG Oral Tablet 12/22/2023 - 11/01/2024 Provider: CHELSEA MICHELE MD Diagnosis: Last Documented On 1:12PM By Addison Preston ; [facility] Fluticasone Propionate 50 MC G/ACT Nasal Suspension 12/16/2023 - 11/01/2024 Provider: LONNIELAMIN SOLANO Diagnosis: Last Documented On 1:12PM By Addison Preston ; [facility] Folic Acid 1 MG Oral Tablet 12/16/2023 - 11/01/2024 Pr ovider: Dagmar Lundberg MD Diagnosis: Last Documented On 5 1:12PM By Addison Preston ; [facility] Methotrexate Sodium 2.5 MG O ral Tablet 12/16/2023 - 11/01/2024 Provider: Dagmar Lundberg MD Diagnosis: Last Documented On 5 1:12PM By Addison Preston ; [facility] predniSONE 5 MG Oral Tablet 12/16/2023 - 11/01/2024 Pr ovider: Dagmar Lundberg MD Diagnosis: Last Documented On 5 1:12PM By Addison Preston ; [facility] Montelukast Sodium 10 MG Oral Tablet 11/29/2023 - 11/01/2024 Provider: CHELSEA MICHELE MD Diagnosis: Last Documented On 5 1:12PM By Addison Preston ; [facility] Symbicort 80-4.5 MCG/ACT Inh alation Aerosol 11/30/2019 - 02/09/2024 Provider: LONNIE MULBERRY Diagnosis: Last Documented On 4 10:10AM By Cecilia Moise ; [facility] Omeprazole 40 MG Oral Capsul e Delayed Release 11/20/2019 - 02/09/2024 Provider: LONNIE MULBERRY Diagnosis: Last Documented On 4 10:10AM By Cecilia Moise ; [facility] Verapamil HCl 80 MG Oral Tablet 11/19/2019 - Provider: LONNIE MULBERRY Diagnosis: Last Documented On 4 10:10AM By Cecilia Moise ; [facility] Metoclopramide HCl 10 MG Oral Tablet 11/19/2019 - 11/2023 Provider: LONNIE MULBERRY Diagnosis: Last Documented On 4 10:10AM By Cecilia Moise ; [facility] Furosemide 40 MG Oral Tablet 11/19/2019 - 02/09/2024 P sawder: LONNIE MULBERRY Diagnosis: Last Documented On 4 10:10AM By Cecilia Moise ; [facility] Folic Acid 1 MG Oral Tablet 11/19/2019 - 02/09/2024 Pr ovider: LONNIE MULBERRY Diagnosis: Last Documented On 4 10:10AM By Cecilia Moise ; [facility] Montelukast Sodium 10 MG Oral Tablet 11/19/2019 - 11/2023 Provider: LONNIE SOLANO Diagnosis: Last Documented On 4 10:10AM By Cecilia Moise ; [facility] Atorvastatin Calcium 20 MG O ral Tablet 11/19/2019 - 02/09/2024 Provider: LONNIE BECKBERRY Diagnosis: Last Documented On 4 10:10AM By Cecilia Moise ; [facility] busPIRone HCl 10 MG Oral Tablet 11/19/2019 - Provider: LONNIE SOLANO Diagnosis: Last Documented On 4 10:10AM By Cecilia Moise ; [facility] Lisinopril 10 MG Oral Tablet 11/19/2019 - 02/09/2024 P rovider: LONNIE SOLANO Diagnosis: Last Documented On 4 10:10AM By Cecilia Moise ; [facility] Methotrexate 2.5 MG Oral Tablet 10/30/2019 - 02/09/2024 Provider: Sima Vazquez APRN Diagnosis: Last Documented On 4 10:10AM By Cecilia Moise ; [facility] predniSONE 5 MG Oral Tablet 10/30/2019 - 02/09/2024 Pr ovider: Sima Vazquez APRN Diagnosis: Last Documented On 4 10:10AM By Cecilia Moise ; [facility] Atorvastatin Calcium 10 MG OR TABS 06/19/2014 - 2019 Provider: Diagnosis: Last Documented On 0 1:20PM By Lita Barrera ; [facility] Flagstaff 5-325 MG OR TABS 06/19/2014 - 07/19/2014 Provider: Jose Long MD Diagnosis: DEGENERATIVE MARY NT DISEASE KNEE Last Documented On 4 3:42PM By Rome Marinelli User ; [facility] Naproxen 500 MG OR TABS 10/17/2012 - 11/01/2012 Provid er: Osvaldo Sorensen MD Diagnosis: sx 1-9-13 //cr Last Documented On 3 1:15PM By Roseanne Barragan ; [facility] Lortab 7.5-500 MG OR TABS 10/17/2012 - 10/22/2012 Prov ider: Osvaldo Sorensen MD Diagnosis: sx 1-06-22cr Last Documented On 3 1:15PM By Roseanne Barragan ; [facility] Pepcid 20 MG OR TABS 08/22/2012 - 12/26/2019 Provider: Diagnosis: patient takes 10mg Last Documented On 0 1:20PM By Lita Barrera ; [facility] Loratadine 10 MG OR TABS 08/22/2012 - 12/26/2019 Provi evonne: Diagnosis: Last Documented On 0 1:20PM By Lita Barrera ; [facility] Symbicort 160-4.5 MCG/ACT IN AERO 08/22/2012 - 020 Provider: Diagnosis: Last Documented On 0 1:18PM By Lita Barrera ; [facility] Methotrexate POWD 08/22/2012 - 12/26/2019 Provider: Diagnosis: Last Documented On 0 1:20PM By Lita Barrera ; [facility] PriLOSEC OTC 20 MG OR TBEC 08/22/2012 - 12/26/2019 Pro vider: Diagnosis: Last Documented On 0 1:18PM By Lita Barrera ; [facility] busPIRone HCl POWD 08/22/2012 - 12/26/2019 Provider: Diagnosis: Last Documented On 0 1:20PM By Lita Barrera ; [facility] Symbyax 12-25 MG OR CAPS 08/22/2012 - 12/26/2019 Provi evonne: Diagnosis: Last Documented On 0 1:18PM By Lita Barrera ; [facility] Singulair 4 MG OR PACK 08/22/2012 - 12/26/2019 Provide r: Diagnosis: Last Documented On 0 1:18PM By Lita Barrera ; [facility] Forteo 600 mcg/2.4ml SC INJ 08/22/2012 - 12/26/2019 Pr ovider: Diagnosis: Last Documented On 0 1:20PM By Lita Barrera ; [facility] Furosemide 40 MG OR TABS 08/22/2012 - 12/26/2019 Provi evonne: Diagnosis: Last Documented On 0 1:20PM By Lita Barrera ; [facility] Verapamil HCl POWD 08/22/2012 - 12/26/2019 Provider: Diagnosis: Last Documented On 0 1:18PM By Lita Barrera ; [facility] Pravastatin Sodium 10 MG OR TABS 08/22/2012 - 12/26/19 20 Provider: Diagnosis: Last Documented On 0 1:20PM By Lita Barrera ; [facility] predniSONE 20 MG OR TABS 08/22/2012 - 12/26/2019 Provi evonne: Diagnosis: Last Documented On 0 1:20PM By Lita Barrera ; [facility] Reglan 5 MG OR TABS 08/22/2012 - 12/26/2019 Provider: Diagnosis: Last Documented On 0 1:18PM By Lita Barrera ; [facility] Folic Acid POWD 08/22/2012 - 12/26/2019 Provider: Diagnosis: Last Documented On 0 1:20PM By Lita Barrera ; [facility] Lortab 7.5-500 MG OR TABS 11/22/2011 - 12/02/2011 Prov ider: Osvaldo Sorensen MD Diagnosis: sx 2-15-12//cr Last Documented On 2 10:00AM By Roseanne Barragan ; [facility] OxyCONTIN 20 MG OR TB12 11/22/2011 - 12/02/2011 Provid er: Osvaldo Sorensen MD Diagnosis: sx 2-15-12//cr Last Documented On 2 10:00AM By Roseanne Barragan ; [facility] Naproxen 500 MG OR TABS 11/22/2011 - 12/07/2011 Provid er: Osvaldo Sorensen MD Diagnosis: sx 2-15-12//cr Last Documented On 2 10:00AM By Roseanne Barragan ; [facility] Lortab 7.5-500 MG OR TABS 07/29/2011 - 08/04/2011 Prov ider: Osvaldo Sorensen MD Diagnosis: [facility] [phone] Last Documented On 1 10:49AM By Stacey Peter ; [facility] OxyCONTIN 20 MG OR TB12 07/02/2011 - 07/16/2011 Provid er: Osvaldo Sorensen MD Diagnosis: sx 07-05-11//cr Last Documented On 1 1:18PM By Roseanne Barragan ; [facility] Voltaren 50 MG OR TBEC 07/02/2011 - 07/09/2011 Provide r: Osvaldo Sorensen MD Diagnosis: sx 07-05-11//cr Last Documented On 1 1:17PM By Roseanne Barragan ; [facility] Percocet 5-325 MG OR TABS 07/02/2011 - 07/09/2011 Prov ider: Osvaldo Sorensen MD Diagnosis: sx 07-05-11//cr Last Documented On 1 1:16PM By Roseanne Barragan ; [facility] Voltaren 50 MG OR TBEC 08/07/2008 - 08/14/2008 Provide r: Osvaldo Sorensen MD Diagnosis: cb Last Documented On 8 10:41AM By Nikky Andrews ; [facility] Percocet 5-325 MG OR TABS 08/07/2008 - 08/12/2008 Prov ider: Osvaldo Sorensen MD Diagnosis: cb Last Documented On 8 10:40AM By Nikky Andrews ; [facility] OxyCONTIN 20 MG OR TB12 08/07/2008 - 08/21/2008 Provid er: Osvaldo Sorensen MD Diagnosis: cb Last Documented On 8 10:34AM By Nikky Andrews ; [facility] Medications Administered Includes: Administered Medications in patient's chart No Administered Medications Recorded Vital Signs Includes: Vital Signs from 08/08/2024 through 08/08/2025 Vital Name 04/25/2025 09:27A 04/18/2025 11:19A 01/22/2025 01:58P 11/01/2024 01:18P 08/21/2024 11:22A Height (in) 64 64 64 64 64 Weight (lb) 175 175 175 175 175 Body Mass Index 30 30 30 30 30 Body Surface Area 1.8 1.8 1.8 1.8 1.8 Note: aek sjp ah cd aek Last Documented: On 04/25/2025 9:27AM ; [facility] On 04/18/2025 11:19AM ; [facility] On 01/22/2025 1:58PM ; [facility] On 11/01/2024 1:18PM ; [facility] On 08/21/2024 11:23AM ; [facility] Results Includes: Results from 08/08/2024 through 08/08/2025 No Results Recorded For Specified Dates History of Present Illness History of Present Illness not supported for this document type No History of Present Illness Recorded Social History Description Last Updated Caffeine use 02/10/2024 Last Documented On 4 10:11AM ; [facility] No recent change in diet 02/10/2024 Last Documented On 4 10:11AM ; [facility] Not a current smoker. 02/10/2024 Last Documented On 4 10:11AM ; [facility] Not exercising regularly 02/10/2024 Last Documented On 4 10:11AM ; [facility] Not using alcohol 02/10/2024 Last Documented On 4 10:11AM ; [facility] Not using drugs 02/10/2024 Last Documented On 4 10:11AM ; [facility] Tobacco non-user 02/09/2024 Last Documented On 4 10:11AM ; [facility] No tobacco use 06/19/2014 Last Documented On 4 9:53AM ; [facility] Smoking status : Never smoked/ Recode: 4 06/19/2014 Last Documented On 4 9:53AM ; [facility] Procedures and Surgical History Includes: Procedures from 08/08/2024 through 08/08/2025 Procedures Code Diagnosis Performing Provider Service Location Service Date X-RAY EXAM OF HAND 3 VIEWS (RIGHT) 66794 Other specified rheumatoid arthritis, right hand Osvaldo Sorensen MD [facility] 04/18/2025 Last Documented On 5 3:54PM ; [facility] X-RAY EXAM OF HAND 3 VIEWS (RIGHT) 61541 Other specified rheumatoid arthritis, right hand Osvaldo Sorensen MD [facility] 01/22/2025 Last Documented On 5 10:19AM ; [facility] THERAPEUTIC ACTIVITIES (Occupational therapy) 42742 Other specified rheumatoid arthritis, right hand Cristobal Angle OT [facility] 01/22/2025 Last Documented On 5 9:20AM ; [facility] MANUAL THERAPY (Occupational therapy) 21687 Other specified rheumatoid arthritis, right hand Cristobal Angle OT [facility] 01/22/2025 Last Documented On 5 9:20AM ; [facility] THERAPEUTIC EXERCISES (Occupational therapy) 26244 Other specified rheumatoid arthritis, right hand Cristobal Angle OT [facility] 01/22/2025 Last Documented On 5 9:20AM ; [facility] SELF CARE MNGMENT TRAINING (Occupational therapy) 59236 Other specified rheumatoid arthritis, right hand Genny Harris OT [facility] 01/17/2025 Last Documented On 5 1:22PM ; [facility] THERAPEUTIC ACTIVITIES (Occupational therapy) 88989 Other specified rheumatoid arthritis, right hand Genny Harris OT [facility] 01/17/2025 Last Documented On 5 1:22PM ; [facility] MANUAL THERAPY (Occupational therapy) 60595 Other specified rheumatoid arthritis, right hand Genny Harris OT [facility] 01/17/2025 Last Documented On 5 1:22PM ; [facility] MANUAL THERAPY (Occupational therapy) 53222 Other specified rheumatoid arthritis, right hand Cristobal Angle OT [facility] 01/03/2025 Last Documented On 5 1:54PM ; [facility] THERAPEUTIC EXERCISES (Occupational therapy) 09685 Other specified rheumatoid arthritis, right hand Cristobal Angle OT [facility] 01/03/2025 Last Documented On 5 1:54PM ; [facility] MANUAL THERAPY (Occupational therapy) 08189 Other specified rheumatoid arthritis, right hand Genny Harris OT [facility] 12/25/2024 Last Documented On 5 1:58PM ; [facility] THERAPEUTIC EXERCISES (Occupational therapy) 23809 Other specified rheumatoid arthritis, right hand Genny Harris OT [facility] 12/25/2024 Last Documented On 5 1:58PM ; [facility] MANUAL THERAPY (Occupational therapy) 03099 Other specified rheumatoid arthritis, right hand Genny Harris OT [facility] 12/20/2024 Last Documented On 5 2:09PM ; [facility] THERAPEUTIC EXERCISES (Occupational therapy) 89855 Other specified rheumatoid arthritis, right hand Genny Harris OT [facility] 12/20/2024 Last Documented On 5 2:09PM ; [facility] SELF CARE MNGMENT TRAINING (Occupational therapy) 68579 Other specified rheumatoid arthritis, right hand Ninfa Chester OT [facility] 11/29/2024 Last Documented On 5 8:43AM ; [facility] THERAPEUTIC EXERCISES (Occupational therapy) 67250 Other specified rheumatoid arthritis, right hand Cristobal Angle OT [facility] 11/22/2024 Last Documented On 5 10:07PM ; [facility] Wrist hand finger orthosis, rigid without joints, may includ (RIGHT) [id number] Other specified rheumatoid arthritis, right hand Genny Harris OT [facility] 11/15/2024 Last Documented On 5 12:02PM ; [facility] SELF CARE MNGMENT TRAINING (Occupational therapy) 47817 Other specified rheumatoid arthritis, right hand Genny Madisons OT [facility] 11/15/2024 Last Documented On 5 12:02PM ; [facility] OT Eval - Mod Complexity (Occupational therapy) 89714 Other specified rheumatoid arthritis, right hand Genny Madisons OT [facility] 11/15/2024 Last Documented On 5 12:02PM ; [facility] FUSION OF KNUCKLE (Distinct procedure, RIGHT HAND, FIFTH DIGIT) 90220 Other specified rheumatoid arthritis, right hand Osvaldo Sorensen MD [facility] 11/14/2024 Last Documented On 5 8:53AM ; [facility] FUSION OF KNUCK[place] (Distinct procedure, RIGHT HAND, FOURTH DIGIT) 29742 Other specified rheumatoid arthritis, right hand Osvaldo Sorensen MD [facility] 11/14/2024 Last Documented On 5 8:53AM ; [facility] FUSION OF [place]CK[place] (Distinct procedure, RIGHT HAND, THIRD DIGIT) 06993 Other specified rheumatoid arthritis, right hand Osvaldo Sorensen MD [facility] 11/14/2024 Last Documented On 5 8:53AM ; [facility] FUSION OF K[place]CKLE (RIGHT HAND,SECOND DIGIT) 26452 Other specified rheumatoid arthritis, right hand Osvaldo Sorensen MD [facility] 11/14/2024 Last Documented On 5 8:53AM ; [facility] X-RAY EXAM OF ELBOW 1-2 VIEWS (LEFT) 52359 Primary osteoarthritis, left elbow Osvaldo [facility] 11/01/2024 Last Documented On 5 10:02AM ; [facility] Surgical History Last Updated History of History of Gallbladder 2023 Last Documented On 4 10:11AM ; [facility] Past Surgical History: total wrist, thum b fusion, finger joints 02/10/2024 Last Documented On 4 10:11AM ; [facility] Medical History Includes: Medical History in patient's chart Description Last Updated scleroderma, IBS 02/10/2024 Last Documented On 4 10:11AM ; [facility] History of arthritis 02/10/2024 Last Documented On 4 10:11AM ; [facility] History of asthma 02/10/2024 Last Documented On 4 10:11AM ; [facility] History of Fractures 02/10/2024 Last Documented On 4 10:11AM ; [facility] History of Heartburn / Acid Reflux 02/09 Last Documented On 4 10:11AM ; [facility] History of History of Rheumatology 02/09 Last Documented On 4 10:11AM ; [facility] History of Hypertension 02/10/2024 Last Documented On 4 10:11AM ; [facility] History of osteoporosis 02/10/2024 Last Documented On 4 10:11AM ; [facility] Family History Includes: Family History in patient's chart Description Last Updated Diabetes mellitus 02/10/2024 Last Documented On 4 10:11AM ; [facility] Family history of cancer 02/10/2024 Last Documented On 4 10:11AM ; [facility] Family history of osteoporosis 4 Last Documented On 4 10:11AM ; [facility] Family history of rheumatoid arthritis 0 02/10/2024 Last Documented On 4 10:11AM ; [facility] Family history of systemic hypertension 02/10/2024 Last Documented On 4 10:11AM ; [facility] Stroke / Seizures 02/10/2024 Last Documented On 4 10:11AM ; [facility] Review of Systems Review of Systems not supported for this document type No Review of Systems Recorded Mental Status Description Anxiety Functional Status No Functional Status Recorded Physical Exam Physical Exam not supported for this document type No Physical Exam Recorded Allergies Includes: Active, inactive, and resolved Allergies Substance Type Reaction Onset Date Resolved Date Statu s Penicillins Allergy 03/04/2006 Active Last Documented On 9:25AM ; [facility] Encounters Includes: Encounters from 08/08/2024 through 08/08/2025 Encounter Provider Location Date Check-In Time Check-Out Time Diagnosis Follow Up Osvaldo Sorensen MD [facility] 04/25/20 9:19AM 10:22AM Overweight Follow Up Osvaldo Sorensen MD [facility] 04/18/20 10:47AM 12:39PM Overweight Post Op Osvaldo Sorensen MD [facility] 01/23/20 1:56PM 3:19PM Overweight Post Op Osvaldo Sorensen MD [facility] 11/29/19 25 10:53AM 11:44AM Follow Up [facility] 11/15/19 25 2:24PM 11/01/2024 11:59PM [facility] Osvaldo Sorensen MD Surgery 11/14/19 25 8:57AM 11/01/2024 11:59PM Follow Up Osvaldo Sorensen MD [facility] 11/01/19 1:03PM 2:28PM Overweight Post Op Michell Philip APRN [facility] 08/21/20 24 11:12AM 11:56AM Overweight Insurance Includes: Active Insurance Policies Plan Name Member ID Group # Subscriber Relationship Effect apryl Dates 1 - [employer] [id number] Mari Clark Imelda f Clinical Notes Includes: Signed Clinical Notes starting from 09/23/2022 * Progress note Date Encounter Last Documented by 04/25/2025 Follow Up Last documented on 04/26/2025; 9:17 AM, Osvaldo Sorensen MD; [facility], [facility] Active Problems & Conditions - Joint Pain, Localized in the Hip - Joint Pain, Localized in the Right Wrist - Joint Pain, Localized in the Shoulder Chief Complaint The Chief Complaint is: R wrist pain. Referred Here Referred by pcp. History of Present Illness Mari Clark is a 64 year old female. - Allergy list reviewed - Problem list reviewed - Medication list reviewed Patient is here today for follow up of her rheumatoid arthritis. The wound where the pin was coming through the skin is now fully healed without any sign of infection Current Medication - Albuterol Sulfate HFA 108 (90 Base) MCG/ACT Inhalation Aerosol Solution take as directed 25 days, 0 refills - Atorvastatin Calcium 40 MG Oral Tablet 90 days, 0 refills - Azithromycin 250 MG Oral Tablet 5 days, 0 refills - busPIRone HCl 10 MG Oral Tablet 90 days, 0 refills - Fluconazole 100 MG Oral Tablet take as directed 7 days, 0 refills - Fluticasone Propionate 50 MCG/ACT Nasal Suspension use as directed 90 days, 0 refills - Folic Acid 1 MG Oral Tablet 90 days, 0 refills - Furosemide 40 MG Oral Tablet 90 days, 0 refills - Lisinopril 10 MG Oral Tablet 90 days, 0 refills - Methotrexate Sodium 2.5 MG Oral Tablet 84 days, 0 refills - Metoclopramide HCl 10 MG Oral Tablet 90 days, 0 refills - Montelukast Sodium 10 MG Oral Tablet 90 days, 0 refills - Nystatin 305468 UNIT/ML Mouth/Throat Suspension 7 days, 0 refills - Omeprazole 40 MG Oral Capsule Delayed Release 90 days, 0 refills - predniSONE 5 MG Oral Tablet 90 days, 0 refills - predniSONE 5 MG Oral Tablet 90 days, 0 refills - Symbicort 80-4.5 MCG/ACT Inhalation Aerosol 90 days, 0 refills - Verapamil HCl 80 MG Oral Tablet 90 days, 0 refills Past Medical/Surgical History Reported: History of Fractures. Diagnoses: Asthma Heartburn / Acid Reflux Hypertension History of Rheumatology. Osteoporosis. Arthritis Procedural: Past Surgical History: total wrist, thumb fusion, finger joints Scleroderma, IBS. Surgical: - History of Gallbladder Social History Not a current smoker. Current diet: No recent change in diet. Behavioral: Tobacco non-user. Caffeine: Caffeine use. Tobacco use: No tobacco use and smoking status: Never smoker. Alcohol: Not using alcohol. Drug Use: Not using drugs. Habits: Not exercising regularly. Allergies - Penicillins Family History Cancer Stroke / Seizures - Diabetes mellitus Systemic hypertension Osteoporosis Rheumatoid arthritis Review Of Systems Systemic: Not feeling tired, no recent weight loss, and no recent weight gain. Head: No headache. Sinus pain. Eyes: No vision problems. Cataracts and Glasses/Contacts. No Glaucoma. Otolaryngeal: No hearing loss and no tinnitus. Cardiovascular: No chest pain or discomfort and no palpitations. Hypertension and High Cholesterol. Pulmonary: Daytime asthma symptoms. No chronic cough. No wheezing. Gastrointestinal: Heartburn. No abdominal pain. No Indigestion, no Peptic Ulcer, no GI Stomach Bleed, and no Ulcers. Acid Reflux. Endocrine: Hot flashes and muscle weakness. No Diabetes, no Hypothyroid, and no Hyperthyroid. Hematologic: No easy bleeding. A tendency for easy bruising. No Anemia. Musculoskeletal: Arthritis. No lower back pain. No soft tissue swelling. Pain localized to one or more joints. Neurological: No dizziness and no convulsions. Numbness. Psychological: Anxiety and emotional lability. No depression and no insomnia. Not crying for no reason. Skin: No dry skin. No Ulcers. Scars. No rash. Allergic and Immunologic: Complaint of seasonal allergic reaction. Physical Findings - Vitals taken 04/25/2025 09:27 am aek Height 64 in 59 - 78 Weight 175 lbs 96 - 178 Body Mass Index 30 kg/m2 Body Surface Area 1.8 m2 The patient is awake alert oriented in time place and person. Is in no acute distress. Has normal mood and affect. Is neatly dressed. Pupils are equal and react to light normally. Eyes move normally. Mucous membranes are moist. The patient has no trouble with speech. The patient is afebrile. The patient has rheumatoid arthritis, she has a healed wound where the pin was protruding. Some of the pins are still prominent and slightly tender. Neurovascular exam is normal Assessment - Overweight Counseling/Education Tobacco non-user. use of tobacco assessment performed. - Lose weight Care Team - LONNIE SOLANO - [employer] Notes This dictation was done with voice recognition software and may contain errors and omissions. User Defined 5 Patient has rheumatoid arthritis that is quite severe. We have carried out arthrodesis of the index middle ring and small finger metacarpophalangeal joints and she is doing quite well. The pins are prominent and I do recommend removing the pins whenever she is ready. She will let me know. She will return to clinic as needed. * Progress note Date Encounter Last Documented by 04/18/2025 Follow Up Last documented on 04/22/2025; 2:29 PM, Osvaldo Sorensen MD; [facility] Active Problems & Conditions - Joint Pain, Localized in the Hip - Joint Pain, Localized in the Right Wrist - Joint Pain, Localized in the Shoulder Chief Complaint The Chief Complaint is: R wrist pain. Referred Here Referred by pcp. History of Present Illness Mari Clark is a 64 year old female. - Allergy list reviewed - Problem list reviewed - Medication list reviewed - Review of medications documented Patient is here today for follow up of her metacarpophalangeal joint fusion for rheumatoid arthritis. She has noticed that 1 of the pins has been protruding from her skin. This has been going on for about 3 weeks but she had other appointments and was unable to come in to see me before this time. She does not report any redness or drainage Current Medication - Atorvastatin Calcium 40 MG Oral Tablet 90 days, 0 refills - Azithromycin 250 MG Oral Tablet 5 days, 0 refills - Furosemide 40 MG Oral Tablet 90 days, 0 refills - Lisinopril 10 MG Oral Tablet 90 days, 0 refills - Metoclopramide HCl 10 MG Oral Tablet 90 days, 0 refills - Montelukast Sodium 10 MG Oral Tablet 90 days, 0 refills - predniSONE 5 MG Oral Tablet 90 days, 0 refills - Symbicort 80-4.5 MCG/ACT Inhalation Aerosol 90 days, 0 refills - Verapamil HCl 80 MG Oral Tablet 90 days, 0 refills Past Medical/Surgical History Reported: History of Fractures. Diagnoses: Asthma Heartburn / Acid Reflux Hypertension History of Rheumatology. Osteoporosis. Arthritis Procedural: Past Surgical History: total wrist, thumb fusion, finger joints Scleroderma, IBS. Surgical: - History of Gallbladder Social History Not a current smoker. Current diet: No recent change in diet. Behavioral: Tobacco non-user. Caffeine: Caffeine use. Tobacco use: Smoking status: Never smoker. Alcohol: Not using alcohol. Drug Use: Not using drugs. Habits: Not exercising regularly. Allergies - Penicillins Family History Cancer Stroke / Seizures - Diabetes mellitus Systemic hypertension Osteoporosis Rheumatoid arthritis Review Of Systems Systemic: Not feeling tired, no recent weight loss, and no recent weight gain. Head: No headache. Sinus pain. Eyes: No vision problems. Cataracts and Glasses/Contacts. No Glaucoma. Otolaryngeal: No hearing loss and no tinnitus. Cardiovascular: No chest pain or discomfort and no palpitations. Hypertension and High Cholesterol. Pulmonary: Daytime asthma symptoms. No chronic cough. No wheezing. Gastrointestinal: Heartburn. No abdominal pain. No Indigestion, no Peptic Ulcer, no GI Stomach Bleed, and no Ulcers. Acid Reflux. Endocrine: Hot flashes and muscle weakness. No Diabetes, no Hypothyroid, and no Hyperthyroid. Hematologic: No easy bleeding. A tendency for easy bruising. No Anemia. Musculoskeletal: Arthritis. No lower back pain. No soft tissue swelling. Pain localized to one or more joints. Neurological: No dizziness and no convulsions. Numbness. Psychological: Anxiety and emotional lability. No depression and no insomnia. Not crying for no reason. Skin: No dry skin. No Ulcers. Scars. No rash. Allergic and Immunologic: Complaint of seasonal allergic reaction. Physical Findings - Vitals taken 04/18/2025 11:19 am [place] [employer] Height 64 in 59 - 78 Weight 175 lbs 96 - 178 Body Mass Index 30 kg/m2 Body Surface Area 1.8 m2 The patient is awake alert oriented in time place and person. Is in no acute distress. Has normal mood and affect. Is neatly dressed. Patient is in a wheelchair. Pupils are equal and react to light normally. Eyes move normally. Mucous membranes are moist. The patient has no trouble with speech. The patient is afebrile. The patient has well-healed wounds. She does have a pin that is prominent protruding through the skin. There is no sign of infection Neurovascular exam is normal Assessment - Overweight Counseling/Education Tobacco non-user. use of tobacco assessment performed. - Lose weight Care Team - LONNIE SOLANO - [employer] Notes This dictation was done with voice recognition software and may contain errors and omissions. User Defined 5 X-ray of the hand three views shows good position of the metacarpophalangeal joints with the implants in position. The patient has had a radial carpal joint replacement as well as a distal radioulnar joint replacement and a fusion of the IP joint of the thumb. The patient has metacarpophalangeal joint fusion, 1 of the pins was protruding from the skin. It has been over 3 weeks since this started. I have explained to the patient that as soon as this is noticeable she needs to come and see me. I can remove the rest of the pins but I would like to remove the in the operating room. The prominent pin will be removed in the clinic today. The pin was grasped with a hemostat and removed after the skin is thoroughly prepped with chlorhexidine. Patient tolerates this well. A sterile dressing is applied. The patient will return to clinic for follow up in 1 week. * Progress note Date Encounter Last Documented by 01/22/2025 Post Op Last documented on 01/23/2025; 11:42 AM, Osvaldo Sorensen MD; [facility], [facility] Active Problems & Conditions - Joint Pain, Localized in the Hip - Joint Pain, Localized in the Right Wrist - Joint Pain, Localized in the Shoulder Chief Complaint The Chief Complaint is: R wrist pain. Referred Here Referred by pcp. History of Present Illness Mari Clark is a 64 year old female. - Allergy list reviewed - Problem list reviewed - Medication list reviewed - - Review of medications documented Patient is here today for follow up after fusion of the metacarpophalangeal joints of the index middle ring and small fingers of her right hand. She is doing well but has noticed a swelling on the dorsum of the hand Current Medication - Atorvastatin Calcium 40 MG Oral Tablet 90 days, 0 refills - Azithromycin 250 MG Oral Tablet 5 days, 0 refills - Furosemide 40 MG Oral Tablet 90 days, 0 refills - Lisinopril 10 MG Oral Tablet 90 days, 0 refills - Metoclopramide HCl 10 MG Oral Tablet 90 days, 0 refills - Montelukast Sodium 10 MG Oral Tablet 90 days, 0 refills - predniSONE 5 MG Oral Tablet 90 days, 0 refills - Symbicort 80-4.5 MCG/ACT Inhalation Aerosol 90 days, 0 refills - Verapamil HCl 80 MG Oral Tablet 90 days, 0 refills Past Medical/Surgical History Reported: History of Fractures. Diagnoses: Asthma Heartburn / Acid Reflux Hypertension History of Rheumatology. Osteoporosis. Arthritis Scleroderma, IBS. Surgical: - Past Surgical History: total wrist, thumb fusion, finger joints - History of Gallbladder Social History Not a current smoker. Current diet: No recent change in diet. Caffeine use: Caffeine use. Tobacco use: No tobacco use. Tobacco non-user. Smoking status: Never smoker. Alcohol: Not using alcohol. Drug Use: Not using drugs. Habits: Not exercising regularly. Allergies - Penicillins Family History Cancer Stroke / Seizures Diabetes mellitus Systemic hypertension Osteoporosis Rheumatoid arthritis Review Of Systems Systemic: Not feeling tired, no recent weight loss, and no recent weight gain. Head: No headache. Sinus pain. Eyes: No vision problems. Cataracts and Glasses/Contacts. No Glaucoma. Otolaryngeal: No hearing loss and no tinnitus. Cardiovascular: No chest pain or discomfort and no palpitations. Hypertension and High Cholesterol. Pulmonary: Daytime asthma symptoms. No chronic cough. No wheezing. Gastrointestinal: Heartburn. No abdominal pain. No Indigestion, no Peptic Ulcer, no GI Stomach Bleed, and no Ulcers. Acid Reflux. Endocrine: Hot flashes and muscle weakness. No Diabetes, no Hypothyroid, and no Hyperthyroid. Hematologic: No easy bleeding. A tendency for easy bruising. No Anemia. Musculoskeletal: Arthritis. No lower back pain. No soft tissue swelling. Pain localized to one or more joints. Neurological: No dizziness and no convulsions. Numbness. Psychological: Anxiety and emotional lability. No depression and no insomnia. Not crying for no reason. Skin: No dry skin. No Ulcers. Scars. No rash. Allergic and Immunologic: Complaint of seasonal allergic reaction. Physical Findings - Vitals taken 01/22/2025 01:58 pm ah Height 64 in 59 - 78 Weight 175 lbs 96 - 178 Body Mass Index 30 kg/m2 Body Surface Area 1.8 m2 The patient is awake alert oriented in time place and person. Is in no acute distress. Has normal mood and affect. Is neatly dressed. The patient is in a wheelchair. Pupils are equal and react to light normally. Eyes move normally. Mucous membranes are moist. The patient has no trouble with speech. The patient is afebrile. The patient has minimal swelling in the metacarpophalangeal joint in her hand and finger position is better than before surgery. The wires are prominent on the 2nd and 3rd metacarpals. Assessment - Overweight Previous Tests Basic Management Procedures And Services: - Brace Counseling/Education - Tobacco non-user - Use of tobacco assessment performed - Lose weight Care Team - LONNIE SOLANO - [employer] OPERATOR Notes This dictation was done with voice recognition software and may contain errors and omissions. User Defined 5 X-ray of the hand three views shows healing metacarpophalangeal joint fusions of the index middle ring and small fingers. The wire on the 2nd and 3rd metacarpals have backed out a little bit and are now prominent. The patient has prominent wires index and middle fingers. At some point if the wires were symptomatic they can be removed * Progress note Date Encounter Last Documented by 11/29/2024 Post Op Last documented on 12/17/2024; 10:26 AM, Osvaldo Sorensen MD; [facility], [facility] Active Problems & Conditions - Joint Pain, Localized in the Hip - Joint Pain, Localized in the Right Wrist - Joint Pain, Localized in the Shoulder Chief Complaint The Chief Complaint is: R wrist pain. Referred Here Referred by pcp. History of Present Illness Patient is here today for follow up after fusion of the metacarpophalangeal joints of the right hand. She is doing reasonably well. Her function is improving. Her sutures have been removed. Current Medication - Atorvastatin Calcium 40 MG Oral Tablet 90 days, 0 refills - Azithromycin 250 MG Oral Tablet 5 days, 0 refills - Furosemide 40 MG Oral Tablet 90 days, 0 refills - Lisinopril 10 MG Oral Tablet 90 days, 0 refills - Metoclopramide HCl 10 MG Oral Tablet 90 days, 0 refills - Montelukast Sodium 10 MG Oral Tablet 90 days, 0 refills - predniSONE 5 MG Oral Tablet 90 days, 0 refills - Symbicort 80-4.5 MCG/ACT Inhalation Aerosol 90 days, 0 refills - Verapamil HCl 80 MG Oral Tablet 90 days, 0 refills - Vitamin C 1000 MG Oral Tablet once a day take 1 tablet once daily post surgery, 60 days, 0 refills Past Medical/Surgical History Reported: History of Fractures. Diagnoses: Asthma Heartburn / Acid Reflux Hypertension History of Rheumatology. Osteoporosis. Arthritis Scleroderma, IBS. Surgical: - Past Surgical History: total wrist, thumb fusion, finger joints - History of Gallbladder Social History Not a current smoker. Current diet: No recent change in diet. Caffeine use: Caffeine use. Tobacco use: No tobacco use. Tobacco non-user. Smoking status: Never smoker. Alcohol: Not using alcohol. Drug Use: Not using drugs. Habits: Not exercising regularly. Allergies - Penicillins Family History Cancer Stroke / Seizures Diabetes mellitus Systemic hypertension Osteoporosis Rheumatoid arthritis Review Of Systems Systemic: Not feeling tired, no recent weight loss, and no recent weight gain. Head: No headache. Sinus pain. Eyes: No vision problems. Cataracts and Glasses/Contacts. No Glaucoma. Otolaryngeal: No hearing loss and no tinnitus. Cardiovascular: No chest pain or discomfort and no palpitations. Hypertension and High Cholesterol. Pulmonary: Daytime asthma symptoms. No chronic cough. No wheezing. Gastrointestinal: Heartburn. No abdominal pain. No Indigestion, no Peptic Ulcer, no GI Stomach Bleed, and no Ulcers. Acid Reflux. Endocrine: Hot flashes and muscle weakness. No Diabetes, no Hypothyroid, and no Hyperthyroid. Hematologic: No easy bleeding. A tendency for easy bruising. No Anemia. Musculoskeletal: Arthritis. No lower back pain. No soft tissue swelling. Pain localized to one or more joints. Neurological: No dizziness and no convulsions. Numbness. Psychological: Anxiety and emotional lability. No depression and no insomnia. Not crying for no reason. Skin: No dry skin. No Ulcers. Scars. No rash. Allergic and Immunologic: Complaint of seasonal allergic reaction. Physical Findings The patient is awake alert oriented in time place and person. Is in no acute distress. Has normal mood and affect. Is neatly dressed. Pupils are equal and react to light normally. Eyes move normally. Mucous membranes are moist. The patient has no trouble with speech. The patient is afebrile. The wounds are clean and dry, there is no sign of infection, alignment is acceptable. Previous Tests Basic Management Procedures And Services: - Brace Counseling/Education - Tobacco non-user - Use of tobacco assessment performed - Lose weight Practice Management Use of tobacco assessment performed Review of medications documented. Care Team - LONNIE SOLANO - [employer] OPERATOR Notes This dictation was done with voice recognition software and may contain errors and omissions. User Defined 5 Patient has severe rheumatoid arthritis. The wounds are clean and dry. She has good alignment of the MP joints. She has minimal motion at the interphalangeal joints. At this point she is doing well she is going to continue with therapy and bracing. She will return to clinic for follow up in a few weeks. * Progress note Date Encounter Last Documented by 11/01/2024 Follow Up Last documented on 11/01/2024; 3:48 PM, Osvaldo Sorensen MD; [facility], [facility] Active Problems & Conditions - Joint Pain, Localized in the Hip - Joint Pain, Localized in the Right Wrist - Joint Pain, Localized in the Shoulder Chief Complaint The Chief Complaint is: R wrist pain. Referred Here Referred by pcp. History of Present Illness Mari Clark is a 63 year old female. - Allergy list reviewed - Problem list reviewed - Medication list reviewed - - Review of medications documented Patient is here today for follow up after nail plate resection. She is back in her fingernail is healing without sign of infection. She has been feeling pain in his stability in the left elbow. She had a radial head resection in 2007 Current Medication - Atorvastatin Calcium 40 MG Oral Tablet 90 days, 0 refills - Azithromycin 250 MG Oral Tablet 5 days, 0 refills - Furosemide 40 MG Oral Tablet 90 days, 0 refills - Lisinopril 10 MG Oral Tablet 90 days, 0 refills - Metoclopramide HCl 10 MG Oral Tablet 90 days, 0 refills - Montelukast Sodium 10 MG Oral Tablet 90 days, 0 refills - predniSONE 5 MG Oral Tablet 90 days, 0 refills - Symbicort 80-4.5 MCG/ACT Inhalation Aerosol 90 days, 0 refills - Verapamil HCl 80 MG Oral Tablet 90 days, 0 refills Past Medical/Surgical History Reported: History of Fractures. Diagnoses: Asthma Heartburn / Acid Reflux Hypertension History of Rheumatology. Osteoporosis. Arthritis Scleroderma, IBS. Surgical: - Past Surgical History: total wrist, thumb fusion, finger joints - History of Gallbladder Social History Not a current smoker. Current diet: No recent change in diet. Caffeine use: Caffeine use. Tobacco use: No tobacco use. Tobacco non-user. Smoking status: Never smoker. Alcohol: Not using alcohol. Drug Use: Not using drugs. Habits: Not exercising regularly. Allergies - Penicillins Family History Cancer Stroke / Seizures Diabetes mellitus Systemic hypertension Osteoporosis Rheumatoid arthritis Review Of Systems Systemic: Not feeling tired, no recent weight loss, and no recent weight gain. Head: No headache. Sinus pain. Eyes: No vision problems. Cataracts and Glasses/Contacts. No Glaucoma. Otolaryngeal: No hearing loss and no tinnitus. Cardiovascular: No chest pain or discomfort and no palpitations. Hypertension and High Cholesterol. Pulmonary: Daytime asthma symptoms. No chronic cough. No wheezing. Gastrointestinal: Heartburn. No abdominal pain. No Indigestion, no Peptic Ulcer, no GI Stomach Bleed, and no Ulcers. Acid Reflux. Endocrine: Hot flashes and muscle weakness. No Diabetes, no Hypothyroid, and no Hyperthyroid. Hematologic: No easy bleeding. A tendency for easy bruising. No Anemia. Musculoskeletal: Arthritis. No lower back pain. No soft tissue swelling. Pain localized to one or more joints. Neurological: No dizziness and no convulsions. Numbness. Psychological: Anxiety and emotional lability. No depression and no insomnia. Not crying for no reason. Skin: No dry skin. No Ulcers. Scars. No rash. Allergic and Immunologic: Complaint of seasonal allergic reaction. Physical Findings - Vitals taken 11/01/2024 01:18 pm cd Height 64 in 59 - 78 Weight 175 lbs 96 - 178 Body Mass Index 30 kg/m2 Body Surface Area 1.8 m2 The patient is awake alert oriented in time place and person. Is in no acute distress. Has normal mood and affect. Is neatly dressed. Pupils are equal and react to light normally. Eyes move normally. Mucous membranes are moist. The patient has no trouble with speech. The patient is afebrile. Patient was in a wheelchair. The left elbow is unstable medial lateral. There is pain without a palpable joint effusion. On the right hand she has a contracted metacarpophalangeal joints of the index middle ring and small fingers she can move her interphalangeal joints but she can not extend the metacarpophalangeal joints. Assessment - Overweight Previous Tests Basic Management Procedures And Services: - Brace Counseling/Education - Tobacco non-user - Use of tobacco assessment performed - Lose weight Practice Management Use of tobacco assessment performed Review of medications documented. Care Team - LONNIE SOLANO - [employer] OPERATOR Notes This dictation was done with voice recognition software and may contain errors and omissions. User Defined 5 The patient has severe metacarpophalangeal joint contractures due to rheumatoid arthritis. At this point the best option is metacarpophalangeal joint fusion with shortening of the metacarpal as necessary to release the degree of contracture. X-ray of the elbow two views shows a radial head resection with significant ulnar humeral arthritis. The patient has some degree of ulnar humeral arthritis due to instability following radial head resection. At this point her hand bothers her more and we will focus on her hand and wants her hand has been taking care of we will consider treatment for her elbow. The patient will be scheduled for metacarpophalangeal joint fusion of the right index middle ring and small fingers. I discussed the condition and treatment options with the patient. We have covered all of the common complications associated with surgical treatment. The patient has had plenty of time to ask questions. Once all the questions are answered they are ready to proceed with surgical treatment. * Progress note Date Encounter Last Documented by 08/21/2024 Post Op Last documented on 08/21/2024; 11:44 AM, Michell Philip APRN; [facility], [facility] Active Problems & Conditions - Joint Pain, Localized in the Hip - Joint Pain, Localized in the Right Wrist - Joint Pain, Localized in the Shoulder Chief Complaint The Chief Complaint is: Right small finger nail. Referred Here Referred by pcp. History of Present Illness Mari Clark is a 63 year old female. - Allergy list reviewed - Problem list reviewed - Medication list reviewed - - Review of medications documented Patient is 15 is days s/p removal right small finger nail plate due to thickened, curved, yellowed nail and concern for possible fungal infection. She is doing very well post-operatively. She denies any pain. She states she would like to go ahead and reschedule her original rheumatoid surgery. Current Medication - Atorvastatin Calcium 40 MG Oral Tablet 90 days, 0 refills - busPIRone HCl 10 MG Oral Tablet 90 days, 0 refills - Fluticasone Propionate 50 MCG/ACT Nasal Suspension 90 days, 0 refills - Folic Acid 1 MG Oral Tablet 90 days, 0 refills - Furosemide 40 MG Oral Tablet 90 days, 0 refills - Lisinopril 10 MG Oral Tablet 90 days, 0 refills - Methotrexate Sodium 2.5 MG Oral Tablet 84 days, 0 refills - Metoclopramide HCl 10 MG Oral Tablet 90 days, 0 refills - Montelukast Sodium 10 MG Oral Tablet 90 days, 0 refills - Montelukast Sodium 10 MG Oral Tablet 90 days, 0 refills - Naproxen 500 MG Oral Tablet take one tablet twice a day prn following surgery, 15 days, 1 refills - Omeprazole 40 MG Oral Capsule Delayed Release 90 days, 0 refills - predniSONE 5 MG Oral Tablet 90 days, 0 refills - Verapamil HCl 80 MG Oral Tablet 90 days, 0 refills - Vitamin C 1000 MG Oral Tablet once a day take 1 tablet once daily post surgery, 60 days, 0 refills Past Medical/Surgical History Reported: History of Fractures. Diagnoses: Asthma Heartburn / Acid Reflux Hypertension History of Rheumatology. Osteoporosis. Arthritis Scleroderma, IBS. Surgical: - Past Surgical History: total wrist, thumb fusion, finger joints - History of Gallbladder Social History Not a current smoker. Current diet: No recent change in diet. Caffeine use: Caffeine use. Tobacco use: No tobacco use. Tobacco non-user. Smoking status: Never smoker. Alcohol: Not using alcohol. Drug Use: Not using drugs. Habits: Not exercising regularly. Allergies - Penicillins Family History Cancer Stroke / Seizures Diabetes mellitus Systemic hypertension Osteoporosis Rheumatoid arthritis Review Of Systems Systemic: Not feeling tired, no recent weight loss, and no recent weight gain. Head: No headache. Sinus pain. Eyes: No vision problems. Cataracts and Glasses/Contacts. No Glaucoma. Otolaryngeal: No hearing loss and no tinnitus. Cardiovascular: No chest pain or discomfort and no palpitations. Hypertension and High Cholesterol. Pulmonary: Daytime asthma symptoms. No chronic cough. No wheezing. Gastrointestinal: Heartburn. No abdominal pain. No Indigestion, no Peptic Ulcer, no GI Stomach Bleed, and no Ulcers. Acid Reflux. Endocrine: Hot flashes and muscle weakness. No Diabetes, no Hypothyroid, and no Hyperthyroid. Hematologic: No easy bleeding. A tendency for easy bruising. No Anemia. Musculoskeletal: Arthritis. No lower back pain. No soft tissue swelling. Pain localized to one or more joints. Neurological: No dizziness and no convulsions. Numbness. Psychological: Anxiety and emotional lability. No depression and no insomnia. Not crying for no reason. Skin: No dry skin. No Ulcers. Scars. No rash. Allergic and Immunologic: Complaint of seasonal allergic reaction. Reviewed 08/21/24 Physical Findings - Vitals taken 08/21/2024 11:22 am aek Height 64 in Weight 175 lbs Body Mass Index 30 kg/m2 Body Surface Area 1.8 m2 The patient is awake alert oriented in time place and person. Is in no acute distress. Has normal mood and affect. Is neatly dressed. Has normal gait and station. Pupils are equal and react to light normally. Eyes move normally. Mucous membranes are moist. The patient has no trouble with speech. The patient is afebrile. On exam, the right small finger is pink and warm brisk cap refill. Her nail bed is clean and dry with no evidence of infection. The Adaptic dressing is still intact over the nail plate. Tests Surgical pathology report dated 08/06/2024 final diagnosis: right small finger nail with no fungal elements identified on PAS stain. Assessment - Overweight s/p removal right small finger nail plate Previous Tests Basic Management Procedures And Services: - Brace Counseling/Education - Tobacco non-user - Use of tobacco assessment performed - Lose weight Plan 1. Patient's right nail bed is well healed. I advised to let the Adaptic dressing fall off on its own. In the meantime, she may wash her hands and bathe without having to cover up her right small finger. 2. Her surgical pathology report is reviewed with her which confirms no fungal elements identified. 3. She will be rescheduled for her previously scheduled rheumatoid surgery. 4. I discussed the condition and treatment options with the patient. We have covered all of the common complications associated with surgical treatment. The patient has had plenty of time to ask questions. Once all of her questions are answered she is ready to proceed with surgical treatment. 5. She will return to the office post-operatively for continued follow-up care. Notes This dictation was done with voice recognition software and may contain errors and omissions. Practice Management Use of tobacco assessment performed Review of medications documented. Care Team - LONNIE SOLANO - MET[employer] P[employer]CH PRESS OPERATOR
--- OUTSIDE RECORDS SUMMARY | 2025-08-08 10:03 | XMS_ITS | Clinical Summary ---
Author Organization [facility] , [facility] Address [address] [address] Phone Care Team Providers Care Mower Mechanic Name Role Phone Osvaldo Sorensen MD Unavailable [phone] LONNIE SOLANO Primary Care Provider [phone] Reason for Visit and Chief Complaint The Chief Complaint is: R wrist pain Problems Includes: Problems addressed during this encounter and other active Problems All Visits Onset Date Resolved Date Provider Condition S tatus Joint Pain Wrist Right 02/09/2024 Michell Philip APRN Active Last Documented On 4 10:10AM ; [facility] Joint Pain Shoulder 10/17/2012 Osvaldo olson MD Active Last Documented On 3 12:57PM ; [facility] Joint Pain Hip 09/26/2012 Chelsea Slater MD Ac tive Last Documented On 2 1:28PM ; [facility], [facility] Plan of Treatment Future Appointments Date Time Location Provi evonne Follow Up 08/08/2025 11:00AM [facility] Osvaldo Sorensen MD Last Documented On 5 9:50AM ; [facility], [facility] Instructions to patient Lose weight Last Documented On 5 1:58PM ; [facility], [facility] Assessments Includes: Assessments from this encounter Findings - Overweight - Last Documented On 01/23/2025 11:42AM ; [facility] Instructions Includes: Instructions from this encounter Instructions to patient Lose weight Last Documented On 5 1:58PM ; [facility] Medical Equipment - Implanted Devices Includes: Current Devices No Medical Equipment Recorded Medications Includes: Medications discussed during this encounter and other current Medications Current Medications (continue as prescribed) Fluticasone Propionate 50 MC G/ACT Nasal Suspension 04/02/2025 Provider: LONNIE SOLANO Diagnosis: Last Documented On 5 9:26AM By Gerry Willis ; [facility], [facility] Fluconazole 100 MG Oral Tablet 04/01/2025 Provider: Diagnosis: Last Documented On 5 9:26AM By Gerry Willis ; [facility], [facility] Albuterol Sulfate HFA 108 (9 0 Base) MCG/ACT Inhalation Aerosol Solution 03/11/2025 Provider: Diagnosis: Last Documented On 5 9:26AM By Gerry Willis ; [facility], [facility] Nystatin 625042 UNIT/ML Mouth/Throat Suspension 2024 Provider: Diagnosis: Last Documented On 5 9:26AM By Gerry Willis ; [facility], [facility] Omeprazole 40 MG Oral Capsule Delayed Release 02/12/20 Provider: LONNIE SOLANO Diagnosis: Last Documented On 5 9:26AM By Gerry Willis ; [facility], [facility] busPIRone HCl 10 MG Oral Tablet 02/11/2025 Provider: LONNIE SOLANO Diagnosis: Last Documented On 5 9:26AM By Gerry Willis ; [facility], [facility] predniSONE 5 MG Oral Tablet 02/08/2025 Provider: Dagmar Lundberg MD Diagnosis: Last Documented On 5 9:26AM By Gerry Willis ; [facility], [facility] Folic Acid 1 MG Oral Tablet 02/08/2025 Provider: Dagmar Lundberg MD Diagnosis: Last Documented On 5 9:26AM By Gerry Willis ; [facility], [facility] Methotrexate Sodium 2.5 MG Oral Tablet 02/08/2025 Pr ovider: Dagmar Lundberg MD Diagnosis: Last Documented On 5 9:26AM By Gerry Willis ; [facility] Atorvastatin Calcium 40 MG Oral Tablet 10/21/2024 Pr ovider: CHELSEA FORDE MD Diagnosis: Last Documented On 5 1:13PM By Addison Preston ; [facility] predniSONE 5 MG Oral Tablet 10/19/2024 Provider: Dagmar Lundberg MD Diagnosis: Last Documented On 5 1:13PM By Addison Preston ; [facility] Azithromycin 250 MG Oral Tablet 10/09/2024 Provider: Paulette Moreno APRN Diagnosis: Last Documented On 5 1:13PM By Addison Preston ; [facility] Symbicort 80-4.5 MCG/ACT Inhalation Aerosol 10/05/2024 Provider: LONNIE SOLANO Diagnosis: Last Documented On 5 1:13PM By Addison Preston ; [facility], [facility] Montelukast Sodium 10 MG Oral Tablet 09/13/2024 Prov ider: CHELSEA FORDE MD Diagnosis: Last Documented On 5 1:13PM By Addison Preston ; [facility], [facility] Metoclopramide HCl 10 MG Oral Tablet 09/13/2024 Prov ider: LONNIE BECKGLO Diagnosis: Last Documented On 5 1:13PM By Addison Preston ; [facility] Furosemide 40 MG Oral Tablet 09/13/2024 Provider: LONNIE SOLANO Diagnosis: Last Documented On 5 1:13PM By Addison Preston ; [facility], [facility] Lisinopril 10 MG Oral Tablet 09/13/2024 Provider: CHELSEA FORDE MD Diagnosis: Last Documented On 5 1:13PM By Addison Preston ; [facility] Verapamil HCl 80 MG Oral Tablet 09/13/2024 Provider: CHELSEA FORDE MD Diagnosis: Last Documented On 5 1:13PM By Addison Preston ; [facility], [facility] Past Medications on file Magic Mouthwash (L/N/B/M) Oral Solution 11/20/2024 - 11/26/2024 Provider: Osvaldo olson MD Diagnosis: swish, gargle spit 1-2 teasp oons (5-10 mL) every 4-6 hours as needed Last Documented On 5 10:33AM By Dr. Sorensen ; [facility] Vitamin C 1000 MG Oral Tablet 11/12/2024 - 01/11/2025 Provider: Osvaldo olson MD Diagnosis: once a day take 1 tablet once daily post surgery Last Documented On 5 12:55PM By Lita Barrera ; [facility] Naproxen 500 MG Oral Tablet 11/12/2024 - 12/12/2024 Pr ovider: Osvaldo Sorensen MD Diagnosis: take one tablet twice a day prn following surger y Last Documented On 5 12:55PM By Lita Barrera ; [facility] HYDROcodone-Acetaminophen 7. 5-325 MG Oral Tablet 11/12/2024 - 11/15/2024 Provider: Osvaldo Sorensen MD Diagnosis: 1 tab every 6 hrs prn pain Last Documented On 5 12:55PM By Dr. Sorensen ; [facility] Vitamin C 1000 MG Oral Tablet 08/03/2024 - 10/02/2024 Provider: Osvaldo olson MD Diagnosis: once a day take 1 tablet once daily post surgery Last Documented On 4 9:39AM By Lita Barrera ; [facility] Naproxen 500 MG Oral Tablet 08/03/2024 - 09/02/2024 Pr ovider: Osvaldo Sorensen MD Diagnosis: take one tablet twice a day prn following surger y Last Documented On 4 9:39AM By Lita Barrera ; [facility] [place] 5-325 MG OR TABS 06/19/2014 - 07/19/2014 Provider: Jose Long MD Diagnosis: DEGENERATIVE MARY NT DISEASE KNEE Last Documented On 4 3:42PM By Rome Marinelli User ; [facility] Naproxen 500 MG OR TABS 10/17/2012 - 11/01/2012 Provid er: Osvaldo Sorensen MD Diagnosis: sx 1-9-13 //cr Last Documented On 3 1:15PM By Roseanne Yung ; [facility] Lortab 7.5-500 MG OR TABS 10/17/2012 - 10/22/2012 Prov ider: Osvaldo Sorensen MD Diagnosis: sx 1-9-13 //cr Last Documented On 3 1:15PM By Roseanne Nebo ; [facility] Lortab 7.5-500 MG OR TABS 11/22/2011 - 12/02/2011 Prov ider: Osvaldo Sorensen MD Diagnosis: sx 2-15-12//cr Last Documented On 2 10:00AM By Roseanne Yung ; [facility] OxyCONTIN 20 MG OR TB12 11/22/2011 - 12/02/2011 Provid er: Osvaldo Sorensen MD Diagnosis: sx 2-15-12//cr Last Documented On 2 10:00AM By Roseanne Nebo ; [facility] Naproxen 500 MG OR TABS 11/22/2011 - 12/07/2011 Provid er: Osvaldo Sorensen MD Diagnosis: sx 2-15-12//cr Last Documented On 2 10:00AM By Roseanne Yung ; [facility] Lortab 7.5-500 MG OR TABS 07/29/2011 - 08/04/2011 Prov ider: Osvaldo Sorensen MD Diagnosis: [facility] [phone] Last Documented On 1 10:49AM By Stacey Peter ; [facility] OxyCONTIN 20 MG OR TB12 07/02/2011 - 07/16/2011 Provid er: Osvaldo Sorensen MD Diagnosis: sx 07-05-11//cr Last Documented On 1 1:18PM By Roseanne Nebo ; [facility] Voltaren 50 MG OR TBEC 07/02/2011 - 07/09/2011 Provide r: Osvaldo Sorensen MD Diagnosis: sx 9-11//cr Last Documented On 1 1:17PM By Roseanne Nebo ; [facility] Percocet 5-325 MG OR TABS 07/02/2011 - 07/09/2011 Prov ider: Osvaldo Sorensen MD Diagnosis: sx 9--/cr Last Documented On 1 1:16PM By Roseanne Barragan ; [facility] Voltaren 50 MG OR TBEC 08/07/2008 - 08/14/2008 Provide r: Osvaldo Sorensen MD Diagnosis: cb Last Documented On 8 10:41AM By Nikky Andrews ; [facility] Percocet 5-325 MG OR TABS 08/07/2008 - 08/12/2008 Prov ider: Osvaldo Sorensen MD Diagnosis: cb Last Documented On 8 10:40AM By Nikky Andrews ; [facility] OxyCONTIN 20 MG OR TB12 08/07/2008 - 08/21/2008 Provid er: Osvaldo Sorensen MD Diagnosis: cb Last Documented On 8 10:34AM By Nikky Andrews ; [facility] Medications Administered Includes: Administered Medications from this encounter No Administered Medications Recorded Vital Signs Includes: Vital Signs from this encounter Vital Name 01/22/2025 01:58P Height (in) 64 Weight (lb) 175 Body Mass Index 30 Body Surface Area 1.8 Note: ah Last Documented: On 01/22/2025 1:58PM ; [facility] Results Includes: Results discussed during this encounter No Results Recorded For Specified Dates History of Present Illness Includes: History of Present Illness from this encounter NAT Clark is a 64 year old female. [...] swelling on the dorsum of the hand Social History Description Last Updated Caffeine use 02/10/2024 Last Documented On 5 1:58PM ; [facility] No recent change in diet 02/10/2024 Last Documented On 5 1:58PM ; [facility] Not a current smoker. 02/10/2024 Last Documented On 5 1:58PM ; [facility], [facility] Not exercising regularly 02/10/2024 Last Documented On 5 1:58PM ; [facility], [facility] Not using alcohol 02/10/2024 Last Documented On 5 1:58PM ; [facility], [facility] Not using drugs 02/10/2024 Last Documented On 5 1:58PM ; [facility], [facility] Tobacco non-user 02/09/2024 Last Documented On 5 1:58PM ; [facility], [facility] No tobacco use 06/19/2014 Last Documented On 5 1:58PM ; [facility], [facility] Smoking status : Never smoked/ Recode: 4 06/19/2014 Last Documented On 5 1:58PM ; [facility], [facility] Procedures and Surgical History Includes: Procedures from this encounter Procedures Code Diagnosis Performing Provider Service Location Service Date X-RAY EXAM OF HAND 3 VIEWS (RIGHT) 73746 Other specified rheumatoid arthritis, right hand Osvaldo Sorensen MD [facility] 01/22/2025 Last Documented On 5 10:19AM ; [facility], [facility] brace Last Documented On 5 1:58PM ; [facility], [facility] Surgical History Last Updated History of History of Gallbladder 2023 Last Documented On 5 1:58PM ; [facility], [facility] Past Surgical History: total wrist, thum b fusion, finger joints 02/10/2024 Last Documented On 5 1:58PM ; [facility], [facility] Medical History Includes: Medical History addressed during this encounter Description Last Updated scleroderma, IBS 02/10/2024 Last Documented On 5 1:58PM ; [facility], [facility] History of arthritis 02/10/2024 Last Documented On 5 1:58PM ; [facility], [facility] History of asthma 02/10/2024 Last Documented On 5 1:58PM ; [facility], [facility] History of Fractures 02/10/2024 Last Documented On 5 1:58PM ; [facility], [facility] History of Heartburn / Acid Reflux 02/09 Last Documented On 5 1:58PM ; [facility], [facility] History of History of Rheumatology 02/09 Last Documented On 5 1:58PM ; [facility], [facility] History of Hypertension 02/10/2024 Last Documented On 5 1:58PM ; [facility], [facility] History of osteoporosis 02/10/2024 Last Documented On 5 1:58PM ; [facility], [facility] Family History Includes: Family History addressed during this encounter Description Last Updated Diabetes mellitus 02/10/2024 Last Documented On 5 1:58PM ; [facility], [facility] Family history of cancer 02/10/2024 Last Documented On 5 1:58PM ; [facility], [facility] Family history of osteoporosis 4 Last Documented On 5 1:58PM ; [facility], [facility] Family history of rheumatoid arthritis 0 02/10/2024 Last Documented On 5 1:58PM ; [facility] Family history of systemic hypertension 02/10/2024 Last Documented On 5 1:58PM ; [facility], [facility] Stroke / Seizures 02/10/2024 Last Documented On 5 1:58PM ; [facility], [facility] Review of Systems Includes: Review of Systems from this encounter Systemic: Not feeling tired, no recent weight [...] and Immunologic: Complaint of seasonal allergic reaction. Mental Status Includes: Mental Status from this encounter Description Anxiety Functional Status Includes: Functional Status from this encounter No Functional Status Recorded Physical Exam Includes: Physical Exam from this encounter Allergies Includes: Active Allergies Substance Type Reaction Onset Date Resolved Date Statu s Penicillins Allergy 03/04/2006 Active Last Documented On 5 9:25AM ; [facility], [facility] Encounters Encounter Provider Location Date Check-In Time Check-Out Time Diagnosis Post Op Osvaldo Sorensen MD [facility] 5 1:56PM 3:19PM Overweight Insurance Includes: Active Insurance Policies Plan Name Member ID Group # Subscriber Relationship Effect apryl Dates 1 - [employer] [id number] Mari Clark Imelda f Clinical Notes Includes: Clinical Notes from this encounter * Progress note Date Encounter Last Documented by 01/22/2025 Post Op Last documented on 01/23/2025; 11:42 AM, Osvaldo Sorensen MD; [facility], [facility] Active Problems & Conditions - Joint Pain, [...] weight Care Team - LONNIE SOLANO - MEASUREMENT AND SENSING TECHNICIAN Notes This dictation was done with voice [...]
--- OUTSIDE RECORDS SUMMARY | 2025-08-08 10:03 | XMS_ITS | Clinical Summary ---
Author Organization [facility] Address [address] [place] [address] Care Team Providers Care Corn Breeder Name Role Phone Unavailable Primary Care Provider [...] 03/18/2013 03/18/2008, 02/07, 02/05/2005, Additional history exists [id number] Vaccine (2024- season) 2025 06/08/2021, 01/09/2021, 12/12/2020 [...] Narrative SUNQUEST - 03/21/2008 3:01 PM EDT [facility] MR #: [id number] [facility] [place] [id number] (Age: 47) FU Collect Date: 03/18/2008 00:00 Receipt Date: 03/19/2008 10:07 Page 1 DEPARTMENT OF PATHOLOGY AND LABORATORY MEDICINE CYTOPATHOLOGY REPORT Email: [email or web address] ATTENDING MD/Practitioner: Emma Ochoa [place] [facility] [place] [facility] [place] Reported: 03/21/2008 15:01 Collected: 03/18/2008 00:00 INTERPRETATION A. THIN PREP (CERVICAL/VAGINAL): NEGATIVE FOR INTRAEPITHELIAL LESION OR MALIGNANCY. SATISFACTORY FOR EVALUATION; TRANSFORMATION ZONE COMPONENT CANNOT BE DEFINITIVELY IDENTIFIED DUE TO THE PRESENCE OF ATROPHY OR OTHER HORMONAL CHANGES. Slide scanned and imaged by [employer] ThinPrep Imaging System with manual review of [...] results is suggested (please call Microbiology at [phone] for results). CLINICAL INFORMATION: Menstrual History: Postmenopausal Date of Last Menstrual Period: {Not Provided} Other Clinical Conditions: If ASCUS and > 24 years of age, HPV/DNA testing requested. SPECIMEN DESCRIPTION: A: THIN PREP (CERVICAL/VAGINAL) THIN PREP PROCESS CELLULAR ENHANCEMENT ICD: V76.2 CERVIX, SPECIAL SCREENING FOR MALIGNANT NEOPLASM F: A; RT IMAGE [id number] SNOMED CODES: A; [id number] In cases where a pathologist has signed out the report, the service has been rendered in part by a resident. The signing pathologist has performed and is responsible for the reported pathologic evaluation. us Historical Provider LAB PATHOLOGY ORDERABLES Fin al Result [employer] from Last 3 Months or Most Recently Relevant to Health Maintenance
--- OUTSIDE RECORDS SUMMARY | 2025-08-08 10:04 | XMS_ITS | Patient Health Record ---
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 Name Role Phone Sandoval Tuttle Primary Care Provider Paulette Moreno Unavailable [phone] Allergies Allergen (clinical drug ingredient) Drug/Non Drug [...] - 38 plat 357 100 - 400 Influenza Screen (in house) Reviewed date:10/09/2024 08:44:03 PM Interpretation:neg Performing Lab: Notes/Report: neg results neg Covid test (in house) Reviewed date:10/09/2024 08:43:50 PM Interpretation:neg Performing Lab: Notes/Report: neg Result: neg CBC Venipuncture (in house) Reviewed date:06/17/2025 04:25:16 [...] - 38 platlet 412 100 - 400 H-Sed Rate Reviewed date:11/12/2024 12:23:51 PM Interpretation: Performing Lab: Notes/Report: H-CRP Reviewed date:11/12/2024 12:23:38 PM Interpretation: Performing Lab: Notes/Report: H-CMP Reviewed date:11/12/2024 12:23:26 PM Interpretation: Performing Lab: Notes/Report: H-Lipid Panel Reviewed date:11/12/2024 12:23:14 PM Interpretation: Performing Lab: Notes/Report: H-Microalbumine/Creatinine Reviewed date:11/12/2024 12:23:03 PM Interpretation: Performing Lab: Notes/Report: H-TSH Reviewed date:11/12/2024 12:22:52 PM Interpretation: Performing Lab: Notes/Report: H-TSH Reviewed date:11/12/2024 12:27:21 PM Interpretation: Normal Performing Lab: Notes/Report: TSH 1.88 0.465-4.68 uIU/mL H-Microalbumine/Creatinine Reviewed date:11/12/2024 12:27:21 PM Interpretation: Normal [...] AGRATIO 1.7 1.1-1.8 ALP 92 38-126 U/L H-CRP Reviewed date:11/12/2024 12:27:21 PM Interpretation: Normal Performing Lab: Notes/Report: CRP 1.7 0-4 mg/L H-Sed Rate Reviewed date:11/12/2024 12:27:21 PM Interpretation: Normal Performing Lab: Notes/Report: ESR 21 0-30 mm/hr Medications Medication SIG (Take, Route, Frequency, Duration) Notes Start Date End Date Status Montelukast Sodium 10 MG 1 tab(s) orally [...] TABLET T WICE DAILY BEFORE MEALS; Duration: Active Loratadine 10 MG 1 tablet Orally Once a day; Duration: 30 day(s) Active predniSONE 5 MG 1 tab orally once a day Active Furosemide 40 MG TAKE 1 TABLET [...] Vaccine Route Administration Date Status Comme nts COVID 19 Moderna Unknown 12/12/2020 Administered COVID 19 Moderna Unknown 01/09/2021 Administered COVID 19 Moderna Unknown 06/08/2021 Administered COVID 19 Moderna Unknown 03/01/2022 Administered Fluzone Intradermal Quad private(18-64yrs) ID Intradermal 07/26/2016 Administered Fluzone PF Quad (6-35 months) Unknown 07/16/2022 Administered Fluzone Quad (6months&older) IM Intramuscular 06/24/2021 Administered Given by Juli Gauthier Fluzone Quad-Medicare (6months&older) IM Intramuscular 07/31/2015 Administered Fluzone Quad-Medicare (6months&older) IM Intramuscular 07/25/2017 Administered Fluzone Quad-Medicare (6months&older) IM Intramuscular 08/15/2018 Administered Fluzone Quad-Medicare (6months&older) IM Intramuscular 08/03/2019 Administered Fluzone Quad-Medicare (6months&older) IM Intramuscular 07/10/2020 Administered Prevnar (PCV13) IM Intramuscular 09/24/2015 Administered xAdministration of injection Unknown 03/21/2023 Administered xFluzone (6mos and older)-trivalent IM Intramuscular 07/29/2010 Administered xFluzone (6mos and older)-trivalent IM Intramuscular 07/26/2014 Administered xFluzone Intradermal (18-64yrs)-trivalent- medicare pts ID Intradermal 07/04/2013 Administered wKsusoee-wcbbixteb-tb dicare pts. IM Intramuscular 08/11/2011 Administered cXxpztwt-ieyoqfpwl-vi dicare pts. IM Intramuscular 07/21/2012 Administered Problems Problem Type SNOMED Code ICD Code Onset Dates Problem Status W/U Status Risk Notes Problem Gastroesophageal reflux disease (939973069) GERD (gastroesophageal reflux disease) (K21.9) Active confirmed Problem Essential hypertension (22677495) Essential (primary) hypertension (I10) Active confirmed Problem Hypertension (23557178) HTN (hypertension) (I10) Active confirmed Problem Hyperlipidemia (99965949) Hyperlipidemia (E78.5) Active confirmed Problem Anxiety (48534274) Anxiety (F41.9) Active confi rmed Problem Body mass index 30+ - obesity (168296868) BMI 30.0-30.9,adult (Z68.30) Active confirmed Problem Sciatica (81473402) Lumbago with sciatica, right side (M54.41) Active confirmed Problem Primary insomnia (2322142) Primary insomnia (F51.01) Active confirmed Problem Sciatica (20112454) Lumbago with sciatica, left side (M54.42) Active confirmed Problem Constipation (98407522) Constipation, unspecified constipation type (K59.00) Active confirmed Problem Flatulence, eructation and gas pain (033410331) Bloating (R14.0) Active confirmed Problem Allergic rhinitis (52341299) Allergic rhinitis, unspecified allergic rhinitis type (J30.9) Active confirmed Problem Mild intermittent asthma (232268596) Mild intermittent asthma without complication (J45.20) Active confirmed Problem Leukocytosis (909728752) Leukocytosis, unspecified type (D72.829) Active confirmed Problem Rheumatoid arthritis (05619983) Rheumatoid arthritis involving multiple sites, unspecified rheumatoid factor presence (M06.9) Active confirmed Problem Hyperlipidaemia (05350547) Hyperlipidemia, unspecified hyperlipidemia type (E78.5) Active confirmed Problem Chronic gouty arthritis (93627199) Chronic gout without tophus, unspecified cause, unspecified site (M1A.9XX0) Active confirmed Problem Bursitis of left shoulder (778184183695917) Bursitis of left deltoid (M75.52) Active confirmed Problem Asthma without status asthmaticus (02006304) Asthma, unspecified asthma severity, unspecified whether complicated, unspecified whether persistent (J45.909) Active confirmed Problem Scleroderma (359113248) Scleroderma (M34.9) Active confirmed Problem Rheumatoid arthritis (74165701) Rheumatoid arthritis, involving unspecified site, unspecified whether rheumatoid factor present (M06.9) Active confirmed Vital Signs Heart Rate 102 /min 10/31/2024 Blood pressure diastolic 68 mm Hg 06/24/2025 Height 65 in 06/24/2025 Blood pressure systolic 110 mm Hg 06/24/2025 Weight 180.6 lbs 06/14/2025 BMI 30.05 kg/m2 06/14/2025 Encounters Encounter Location Date Provider Diagnosis [facility] [address] [facility] [address] [place], [place] [id number] 08/10/2024 Sandoval [place] Acute cough R05.1 [facility] [address] [place], [place] [id number] 10/09/2024 Paulette Moreno URI (upper respirato ry infection) J06.9 [facility] [address] [facility] [address] [place], [place] [id number] 10/31/2024 Sandoval [place] HTN (hypertension) I 10 ; Hyperlipidemia E78.5 ; Night sweats R61 and GERD (gastroesophageal reflux disease) K21.9 [facility] [address] [facility] [address] [place], [place] [id number] 05/01/2025 Sandoval [place] HTN (hypertension) I 10 ; Bloating R14.0 ; Asthma, unspecified asthma severity, unspecified whether complicated, unspecified whether persistent J45.909 and BMI 30.0-30.9,adult Z68.30 [facility] [address] [place], [place] [id number] 06/14/2025 Sandoval [place] Acute cough R05.1 [facility] [address] [facility] [address] [place] [id number] 06/24/2025 Sandoval [place] Acute cough R05.1 [facility] [address] [facility] [address] [facility] [address] [place], [place] [id number] 11/12/2024 Sandoval [place] [facility] [address] [facility] 36 [facility] [address] [place], [place] [id number] 01/16/2025 Sandoval [place] HTN (hypertension) I 10 and Asthma, unspecified asthma severity, unspecified whether complicated, unspecified whether persistent J45.909 [facility] [address] [facility] [address] [place], [place] [id number] 05/07/2025 Sandoval [place] Screening for breast cancer Z12.39 [facility] [address] [facility] [address] [place] [id number] 05/20/2025 Sandoval [place] Assessments Encounter Date Diagnosis (ICD Code) Assessment Notes Treatment Notes Treatment Clinical Notes Section Notes 08/10/2024 Acute cough (ICD-10 - R05.1) 10/09/2024 URI (upper respiratory infection) (ICD-10 - J06.9) fluids, rest, supportive measures for fever/symptom relief; has an albuterol inhaler at home which she will use bid-tid 10/31/2024 HTN (hypertension) (ICD-10 - I10) 10/31/2024 Hyperlipidemia (ICD-10 - E78.5) 01/16/2025 HTN (hypertension) (ICD-10 - I10) 05/01/2025 HTN (hypertension) (ICD-10 - I10) 05/01/2025 Bloating (ICD-10 - R14.0) OTC probiotic recommended 05/07/2025 Screening for breast cancer (ICD-10 - Z12.39) 06/14/2025 Acute cough (ICD-10 - R05.1) 06/24/2025 Acute cough (ICD-10 - R05.1) 05/01/2025 Asthma, unspecified asthma severity, unspecified whether complicated, unspecified whether persistent (ICD-10 - J45.909) 01/16/2025 Asthma, unspecified asthma severity, unspecified whether complicated, unspecified whether persistent (ICD-10 - J45.909) 10/31/2024 Night sweats (ICD-10 - R61) 10/31/2024 GERD (gastroesophageal reflux disease) (ICD-10 - K21.9) 05/01/2025 BMI 30.0-30.9,adult (ICD-10 - Z68.30) Plan Of Treatment Pending Test Test Name Order Date Mammogram 05/07/2025 H-TSH 12/14/2023 H-CMP 12/14/2023 Next Appt Details Provider Name:Sandoval Kern ry, 11/01/2025 11:00:00 AM, [address], [address], [place], [place], [id number], Insurance Providers Payer Name Payer Address Payer Phone Subscriber Number Group Number Insured Name Patient Relationship to Insured Coverage Start Date Coverage End Date [employer] (MEDICAR E) [address] [address] [place] [address] [id number] Mari Clark Self - patient is the [...]
--- OUTSIDE RECORDS SUMMARY | 2025-08-08 10:04 | XMS_ITS | Encounter Summary ---
Author Organization [facility] ([place], [place], [place], [place]) Address [address] [place] [address] Care Team Providers Care Underliner Name Role Phone [facility] Tomasa Harris Primary Care Provider Sandoval Tuttle MD Primary Care Provider [phone] Reason for Referral * Consultation (Routine) - Closed Specialty Diagnoses / Procedures Referred By Sabrina glass Referred To Contact Neurology Diagnoses Pre-operative clearance Osvaldo Sorensen MD [address] [facility] [address] [place] [address] Phone: [place]: [place] [address] [place] [address] [address] [place] [address] Phone: tel: fax: Referral ID Status Reason Start Date Expiration Date V isits Requested Visits Authorized [id number] Closed Specialty Services Required 06/08/2024 06/08/2025 1 1 Encounter Details Date Type Department Care Team (Late st Contact Info) Description 06/08/2024 Outside Orders [facility] - [facility] [place] [address] [place] [address] Osvaldo Sorensen MD [address] [facility] [address] [place] [address] Pre-operative clearance (Primary Dx) Social History Tobacco Use Types Packs/Day Years Used Date Smoking Tobacco: Never Assessed Family and Community Support Answer Mehdi e Recorded Help with Day to Day Activities Not on file 06/08/2024 Feeling Lonely or Isolated Not on file 06/08 Educational Attainment Answer Date Moreno rded Speak language other than Amharic at home Not on file 06/08/2024 Want [...] examination documented in this encounter Care Teams Underliner Relationship Specialty Start Date End Date [facility] Connection, [facility] [place] [address] PCP - General 11/05/24 11/13/24 Sandoval Tuttle MD [address] [facility] [address] [place] [address] PCP - General Family Medicine 11/14/24 documented as of this encounter
--- OUTSIDE RECORDS SUMMARY | 2025-08-08 10:04 | XMS_ITS | Clinical Summary ---
Author Organization [facility] Address [address] [place] [address] Phone Care Team Providers Care Lead Presser Name Role Phone Osvaldo Sorensen MD Unavailable [phone] LONNIE SOLANO Primary Care Provider [phone] Reason for Visit and Chief Complaint The Chief Complaint is: R wrist pain Problems Includes: Problems addressed during this encounter and other active Problems All Visits Onset Date Resolved Date Provider Condition S tatus Joint Pain Wrist Right 02/09/2024 Michell Philip APRN Active Last Documented On 4 10:10AM ; [facility] Joint Pain Shoulder 10/17/2012 Osvaldo olson MD Active Last Documented On 3 12:57PM ; [facility] Joint Pain Hip 09/26/2012 Chelsea Slater MD Ac tive Last Documented On 2 1:28PM ; [facility] Plan of Treatment Future Appointments Date Time Location Provi evonne Follow Up 08/08/2025 11:00AM [facility] Osvaldo Sorensen MD Last Documented On 5 9:50AM ; [facility] Instructions to patient Lose weight Last Documented On 5 11:18AM ; [facility] Assessments Includes: Assessments from this encounter Findings - Overweight - Last Documented On 04/22/2025 2:29PM ; [facility] Instructions Includes: Instructions from this encounter Instructions to patient Lose weight Last Documented On 5 11:18AM ; [facility] Medical Equipment - Implanted Devices Includes: Current Devices No Medical Equipment Recorded Medications Includes: Medications discussed during this encounter and other current Medications Current Medications (continue as prescribed) Fluticasone Propionate 50 MC G/ACT Nasal Suspension 04/02/2025 Provider: LONNIE SOLANO Diagnosis: Last Documented On 5 9:26AM By Gerry Willis ; [facility] Fluconazole 100 MG Oral Tablet 04/01/2025 Provider: Diagnosis: Last Documented On 5 9:26AM By Gerry Willis ; [facility] Albuterol Sulfate HFA 108 (9 0 Base) MCG/ACT Inhalation Aerosol Solution 03/11/2025 Provider: Diagnosis: Last Documented On 5 9:26AM By Gerry Willis ; [facility] Nystatin 870252 UNIT/ML Mouth/Throat Suspension 2024 Provider: Diagnosis: Last Documented On 5 9:26AM By Gerry Willis ; [facility] Omeprazole 40 MG Oral Capsule Delayed Release 02/12/20 Provider: LONNIE SOLANO Diagnosis: Last Documented On 5 9:26AM By Gerry Willis ; [facility] busPIRone HCl 10 MG Oral Tablet 02/11/2025 Provider: LONNIE SOLANO Diagnosis: Last Documented On 5 9:26AM By Gerry Willis ; [facility] predniSONE 5 MG Oral Tablet 02/08/2025 Provider: Dagmar Lundberg MD Diagnosis: Last Documented On 5 9:26AM By Gerry Willis ; [facility] Folic Acid 1 MG Oral Tablet 02/08/2025 Provider: Dagmar Lundberg MD Diagnosis: Last Documented On 5 9:26AM By Gerry Willis ; [facility] Methotrexate Sodium 2.5 MG Oral Tablet 02/08/2025 Pr ovider: Dagmar Lundberg MD Diagnosis: Last Documented On 5 9:26AM By Gerry Willis ; [facility] Atorvastatin Calcium 40 MG Oral Tablet 10/21/2024 Pr ovider: CHELSEA FORDE MD Diagnosis: Last Documented On 5 1:13PM By Addison Preston ; [facility] predniSONE 5 MG Oral Tablet 10/19/2024 Provider: Dagmar Lundberg MD Diagnosis: Last Documented On 5 1:13PM By Addison Preston ; [facility] Azithromycin 250 MG Oral Tablet 10/09/2024 Provider: Paulette Moreno APRN Diagnosis: Last Documented On 5 1:13PM By Addison Preston ; [facility] Symbicort 80-4.5 MCG/ACT Inhalation Aerosol 10/05/2024 Provider: LONNIE SOLANO Diagnosis: Last Documented On 5 1:13PM By Addison Preston ; [facility] Montelukast Sodium 10 MG Oral Tablet 09/13/2024 Prov ider: CHELSEA FORDE MD Diagnosis: Last Documented On 5 1:13PM By Addison Preston ; [facility] Metoclopramide HCl 10 MG Oral Tablet 09/13/2024 Prov ider: LONNIE BECKGLO Diagnosis: Last Documented On 5 1:13PM By Addison Preston ; [facility] Furosemide 40 MG Oral Tablet 09/13/2024 Provider: LONNIE SOLANO Diagnosis: Last Documented On 5 1:13PM By Addison Preston ; [facility] Lisinopril 10 MG Oral Tablet 09/13/2024 Provider: CHELSEA FORDE MD Diagnosis: Last Documented On 5 1:13PM By Addison Preston ; [facility] Verapamil HCl 80 MG Oral Tablet 09/13/2024 Provider: CHELSEA FORDE MD Diagnosis: Last Documented On 5 1:13PM By Addison Preston ; [facility] Past Medications on file Magic Mouthwash (L/N/B/M) Oral Solution 11/20/2024 - 11/26/2024 Provider: Osvaldo olson MD Diagnosis: swish, gargle spit 1-2 teasp oons (5-10 mL) every 4-6 hours as needed Last Documented On 5 10:33AM By Dr. Sorensen ; [facility] Vitamin C 1000 MG Oral Tablet 11/12/2024 - 01/11/2025 Provider: Osvaldo olson MD Diagnosis: once a day take 1 tablet once daily post surgery Last Documented On 5 12:55PM By Lita Barrera ; [facility] Naproxen 500 MG Oral Tablet 11/12/2024 - 12/12/2024 Pr ovider: Osvaldo Sorensen MD Diagnosis: take one tablet twice a day prn following surger y Last Documented On 5 12:55PM By Lita Barrera ; [facility] HYDROcodone-Acetaminophen 7. 5-325 MG Oral Tablet 11/12/2024 - 11/15/2024 Provider: Osvaldo Sorensen MD Diagnosis: 1 tab every 6 hrs prn pain Last Documented On 5 12:55PM By Dr. Sorensen ; [facility] Vitamin C 1000 MG Oral Tablet 08/03/2024 - 10/02/2024 Provider: Osvaldo olson MD Diagnosis: once a day take 1 tablet once daily post surgery Last Documented On 4 9:39AM By Lita Barrera ; [facility] Naproxen 500 MG Oral Tablet 08/03/2024 - 09/02/2024 Pr ovider: Osvaldo Sorensen MD Diagnosis: take one tablet twice a day prn following surger y Last Documented On 4 9:39AM By Lita Barrera ; [facility] [place] 5-325 MG OR TABS 06/19/2014 - 07/19/2014 Provider: Jose Long MD Diagnosis: DEGENERATIVE MARY NT DISEASE KNEE Last Documented On 4 3:42PM By Rome Marinelli User ; [facility] Naproxen 500 MG OR TABS 10/17/2012 - 11/01/2012 Provid er: Osvaldo Sorensen MD Diagnosis: sx 1-9-13 //cr Last Documented On 3 1:15PM By Roseanne Calhoun ; [facility] Lortab 7.5-500 MG [...] Last Documented On 2 10:00AM By Roseanne Calhoun ; [facility] Naproxen 500 MG OR TABS 11/22/2011 - 12/07/2011 Provid er: Osvaldo Sorensen MD Diagnosis: sx 2-15-12//cr Last Documented On 2 10:00AM By Roseanne Yung ; [facility] Lortab 7.5-500 MG OR TABS 07/29/2011 - 08/04/2011 Prov ider: Osvaldo Sorensen MD Diagnosis: [facility] [phone] Last Documented On 1 10:49AM By Stacey Peter ; [facility] OxyCONTIN 20 MG OR TB12 07/02/2011 - 07/16/2011 Provid er: Osvaldo Sorensen MD Diagnosis: sx 07-05-11//cr Last Documented On 1 1:18PM By Roseanne Yung ; [facility] Voltaren 50 MG OR TBEC 07/02/2011 - 07/09/2011 Provide r: Osvaldo Sorensen MD Diagnosis: sx 9-11//cr Last Documented On 1 1:17PM By Roseanne Calhoun ; [facility] Percocet 5-325 MG OR TABS 07/02/2011 - 07/09/2011 Prov ider: Osvaldo Sorensen MD Diagnosis: sx 07-05-/cr Last Documented On 1 1:16PM By Roseanne Barragan ; [facility] Voltaren 50 MG OR TBEC 08/07/2008 - 08/14/2008 Provide r: Osvaldo Sorensen MD Diagnosis: cb Last Documented On 8 10:41AM By Nikky Andrews ; [facility] Percocet 5-325 MG OR TABS 08/07/2008 - 08/12/2008 Prov ider: Ovsaldo Sorensen MD Diagnosis: cb Last Documented On 8 10:40AM By Nikky Andrews ; [facility] OxyCONTIN 20 MG OR TB12 08/07/2008 - 08/21/2008 Provid er: Osvaldo Sorensen MD Diagnosis: cb Last Documented On 8 10:34AM By Nikky Andrews ; [facility] Medications Administered Includes: Administered Medications from this encounter No Administered Medications Recorded Vital Signs Includes: Vital Signs from this encounter Vital Name 04/18/2025 11:19A Height (in) 64 Weight (lb) 175 Body Mass Index 30 Body Surface Area 1.8 Note: sjp Last Documented: On 04/18/2025 11:19A M ; [facility] Results Includes: Results discussed during this encounter [...] does not report any redness or drainage Social History Description Last Updated Caffeine use 02/10/2024 Last Documented On 11:18AM ; [facility] No recent change in diet 02/10/2024 Last Documented On 5 11:18AM ; [facility] Not a current smoker. 02/10/2024 Last Documented On 5 11:18AM ; [facility] Not exercising regularly 02/10/2024 Last Documented On 5 11:18AM ; [facility] Not using alcohol 02/10/2024 Last Documented On 5 11:18AM ; [facility] Not using drugs 02/10/2024 Last Documented On 5 11:18AM ; [facility] Tobacco non-user 02/09/2024 Last Documented On 5 11:18AM ; [facility] Smoking status : Never smoked/ Recode: 4 06/19/2014 Last Documented On 5 11:18AM ; [facility] Procedures and Surgical History Includes: Procedures from this encounter Procedures Code Diagnosis Performing Provider Service Location Service Date X-RAY EXAM OF HAND 3 VIEWS (RIGHT) 66555 Other specified rheumatoid arthritis, right hand Osvaldo Sorensen MD [facility] 04/18/2025 Last Documented On 5 3:54PM ; [facility] Surgical History Last Updated History of History of Gallbladder 2023 Last Documented On 5 11:18AM ; [facility] Past Surgical History: total wrist, thum b fusion, finger joints 02/10/2024 Last Documented On 5 11:18AM ; [facility] Medical History Includes: Medical History addressed during this encounter Description Last Updated scleroderma, IBS 02/10/2024 Last Documented On 5 11:18AM ; [facility] History of arthritis 02/10/2024 Last Documented On 5 11:18AM ; [facility] History of asthma 02/10/2024 Last Documented On 5 11:18AM ; [facility] History of Fractures 02/10/2024 Last Documented On 5 11:18AM ; [facility] History of Heartburn / Acid Reflux 02/09 Last Documented On 5 11:18AM ; [facility] History of History of Rheumatology 02/09 Last Documented On 5 11:18AM ; [facility] History of Hypertension 02/10/2024 Last Documented On 5 11:18AM ; [facility] History of osteoporosis 02/10/2024 Last Documented On 5 11:18AM ; [facility] Family History Includes: Family History addressed during this encounter Description Last Updated Diabetes mellitus 02/10/2024 Last Documented On 5 11:18AM ; [facility] Family history of cancer 02/10/2024 Last Documented On 5 11:18AM ; [facility] Family history of osteoporosis 4 Last Documented On 5 11:18AM ; [facility] Family history of rheumatoid arthritis 0 02/10/2024 Last Documented On 5 11:18AM ; [facility] Family history of systemic hypertension 02/10/2024 Last Documented On 5 11:18AM ; [facility] Stroke / Seizures 02/10/2024 Last Documented On 5 11:18AM ; [facility] Review of Systems Includes: Review of Systems [...] Active Last Documented On 5 9:25AM ; [facility] Encounters Encounter Provider Location Date Check-In Time Check-Out Time Diagnosis Follow Up Osvaldo Sorensen MD [facility] 5 10:47AM 12:39PM Overweight Insurance Includes: Active Insurance Policies Plan Name Member ID Group # Subscriber Relationship Effect apryl Dates 1 - [employer] [id number] Mari Clark Imelda f Clinical Notes Includes: Clinical Notes from this encounter * Progress note Date Encounter Last Documented by 04/18/2025 Follow Up Last documented on 04/22/2025; 2:29 PM, Osvaldo Sorensen MD; [facility] Active Problems & Conditions - Joint Pain, [...] Findings - Vitals taken 04/18/2025 11:19 am sjp Height 64 in 59 - 78 Weight [...] weight Care Team - LONNIE SOLANO - [employer] Notes This dictation was done with voice [...]
--- OUTSIDE RECORDS SUMMARY | 2025-08-08 10:04 | XMS_ITS | Data Portability ---
Author Organization [place] H[facility] CLOS[facility] Address [address] [place] [address] Care Team Providers Care Spanish Interpreter/Translator Name Role Phone LONNIE SOLANO Primary Care [...] aminotrans ferase), serum or plasma 2019 020 [facility] (Lab), [address], [place], [address], 0 15:33:22 AST/SGOT (aspartate aminotrans ferase), serum or plasma 2019 020 [facility] (Lab), [address], [place], [address], 0 15:33:09 CBC w/ auto diff 2019 020 [facility] (Lab), [address], [place], [address], 0 15:34:33 creatinine , serum or plasma 2019 020 [facility] (Lab), [address], [place], [address], 0 15:32:57 ESR (erythrocy te sedimentat ion rate), blood 2019 020 [facility] (Lab), [address], [place], [address], 0 15:34:22 ALT (alanine aminotrans ferase), serum or plasma [address] (Lab), [address], [place], [address], 9 10:37:56 AST/SGOT (aspartate aminotrans ferase), serum or plasma [address] (Lab), [address], [place], [address], 9 10:37:56 CBC w/ auto diff [address] (Lab), [address], [place], [address], 9 10:37:56 creatinine , serum or plasma [address] (Lab), [address], [place], [place], [address], 9 10:37:56 ESR (erythrocy te sedimentat ion rate), blood 2018 019 [email or web address] [facility] (Lab), [address], [place], [address], 9 10:37:57 CBC w/ auto diff [address] (Lab), [address], [place], [place], [address], 8 08:10:55 ALT (alanine aminotrans ferase), serum or plasma [address] (Lab), [address], [place], [address], 8 08:10:55 AST/SGOT (aspartate aminotrans ferase), serum or plasma [address] (Lab), [address], [place], [address], 8 08:10:55 CBC w/ auto diff [address] (Lab), [address], [place], [place], [address], 8 08:10:55 creatinine , serum or plasma [address] (Lab), [address], [place], [address], 8 08:10:55 ESR (erythrocy te sedimentat ion rate), blood [address] (Lab), [address], [place], [address], 8 08:10:55 CBC w/ auto diff 2017 018 [email or web address] [facility] (Lab), [address], [place], [address], 8 11:10:12 ALT (alanine aminotrans ferase), serum or plasma [address] (Lab), [address], [place], [address], 8 07:27:32 AST/SGOT (aspartate aminotrans ferase), serum or plasma [address] (Lab), [address], [place], [address], 8 07:27:33 CBC w/ auto diff [address] (Lab), [address], [place], [address], 8 07:27:33 creatinine , serum or plasma [address] (Lab), [address], [place], [address], 8 07:27:33 ESR (erythrocy te sedimentat ion rate), blood [address] (Lab), [address], [place], [address], 8 07:27:33 Referral hand therapy referral [address], [address], [address], [place], [address], 8 09:52:32 Procedures None recorded. Surgeries None recorded. Imaging DEXA 2019 020 [facility] (X-Ray), [address], [place], [address], 0 13:46:38 Medication Orders prednisone 5 mg tablet 2019 020 [facility], [address] [facility] [place], [address], 0 15:11:20 methotrexa te sodium 2.5 mg tablet 2019 020 INTERFACE [facility], [address] [place], [address], 0 15:11:20 prednisone 5 mg tablet 2018 019 INTERFACE [facility], [address] [place] [address], [facility] [address], [id number], 9 16:03:05 methotrexa te sodium 2.5 mg tablet 2017 018 smoberly [facility], [address], [address], [place], [place], [id number], 8 14:23:28 prednisone 5 mg tablet 2017 018 smoberly [facility], [address], [address], [place], [place], [id number], 8 14:23:28 Prolia 60 mg/mL subcutaneo us syringe 2017 018 [email or web address] [facility], [address] [facility] [place], [address], 9 15:45:53 methotrexa te sodium 2.5 mg tablet 2017 018 INTERFACE [facility], [address], [place] [address], [id number], 8 13:57:15 prednisone 5 mg tablet 2017 018 INTERFACE [facility], [address] [facility] [address], [place], [place], [id number], 8 13:57:15 Patient TargetsNo targets recorded. Patient Instructions Encounter Date Encounter Id Patient Instructions Last Modified By Organization Details Last Modified Time 02/13/2018 [id number] eating healthy foods: care instructions smoberly Not available 02/13/2018 13:57:13 scleroderma: car e instructions smoberly Not available 02/13/2018 13:57:13 05/16/2018 [id number] osteoporosis: care instructions smoberly Not available 05/16/2018 18:39:01 08/08/2018 [id number] eating healthy foods: care instructions smoberly Not available 08/08/2018 14:23:28 scleroderma: car e instructions smoberly Not available 08/08/2018 14:23:28 03/21/2019 [id number] eating healthy foods: care instructions smoberly Not available 03/21/2019 16:03:04 scleroderma: car e instructions smoberly Not available 03/21/2019 16:03:04 10/30/2019 [id number] osteoporosis: care instructions smoberly Not available 10/30/2019 [...] 11/13/2019 DEXA No observ ation record ed. [facility] [address] [facility] [facility] [address] [facility], [place], [id number], 11/14/2019 18:20:29 Result Notes None recorded. Problems Name Problem SNOMED Code Status Onset Date Resolution Date Notes Provider Name and Address Organization Details Recorded Time Systemic sclerosis 52357277 Active 2014 From Automated Load;Provi evonne: Schmid, Orin;Stat us: Active Not Available [facility] 6 05:17:28 Seronegat apryl rheumatoi d arthritis 898259701 Active 2014 From Automated Load;Provi evonne: Schmid, Orin;Stat us: Active Not Available [facility] 6 05:17:28 Osteoporo sis 30204154 Active 2015 From Automated Load;Provi evonne: Durham, Sima;St atus: Active Not Available [facility] 6 05:17:28 Problem Notes None recorded. Medical Equipment None Reported. Allergies Allergen ID Allergen Name Allergen Category Reaction Reaction Severity Criticality Documentation Date Start Date Code Code System Note Provider Name and Address Organization Details Recorded Time 589582 Product containin g penicilli n (product) medicatio n Not available Not available Not available 09/03/20162010 66138 8001 SNOMED Comme nt: Creat ed By: Romeo sánchezCre ated Date: 2010 9:28: 34 AM; Not Available [facility] 6 04:19:29 Medications Name Sig Start Date [...] /min 101 /min 91/64 mm[Hg] Marisol Castellon [facility] 10/30/2019 14:55:10 Date Recorded Body height Body mass index (BMI) Body weight Respiratory rate Heart rate Systolic And Diastolic Provider Name and Address Organization Details Last Updated DateTime 8 165.1 cm 27.8 kg/m2 19410.9 3 g 16 /min 107 /min 111/71 mm[Hg] January Patito [facility] 8 13:42:34 Date Recorded Body height Body mass index (BMI) Body weight Respiratory rate Heart rate Systolic And Diastolic Provider Name and Address Organization Details Last Updated DateTime 9 165.1 cm 30.5 kg/m2 30263.4 g 18 /min 94 /min 98/76 mm[Hg] Carlita Guevara [facility] 9 15:44:22 Date Recorded Body height Body mass index (BMI) Body weight Respiratory rate Heart rate Systolic And Diastolic Provider Name and Address Organization Details Last Updated DateTime 8 165.1 cm 27.8 kg/m2 48237.9 3 g 18 /min 59 /min 116/77 mm[Hg] Nevaeh Andrews [facility] 8 14:00:50 Social History Question Answer Notes LastModified by [employer] Details LastModified Time Tobacco Smoking Status Never Smoker Tresa Kelley [facility] 02/10/2017 14:31:18 How Much Tobacco Do You Chew? None [email or web address] Information not available 03/21/2019 What Was The Date Of Your Most Recent Tobacco Screening? 03/21/2019 Information n ot available 11/27/2019 How Much Tobacco Do You Smoke? No [email or web address] Information not available 03/21/2019 How Many Years Have You Smoked Tobacco? 0 [email or web address] Information not available 03/21/2019 Sex: Unknown Functional Status Question Answer Note LastModified by [employer] Details LastModified Time What is your level of alcohol consumption? None Information not available 02/10/2017 Do you or have you ever used smokeless tobacco? Never used smokeless tobacco Information not available 10/30/2019 Do you or have you ever used e-cigarettes or vape? Never used electronic cigarettes [email or web address] Information not available 10/30/2019 Mental Status None recorded. Family History Nothing Reported Notes:Maternal grandmother h ad severe RA Medical History Condition Response Diabetes N Bleeding Disorder N Arthritis Y Emphysema N Heart Disease N Acid Reflux (GERD) Y Rheumatoid Arthritis Y Hypertension Y COPD N Asthma Y Gynecological HistoryNo gynecological history recorded. Obstetrics History GPAL:G 0 P 0 0 0 0 Immunizations Vaccine Type Date Status Note Provider Nam e and Address Organization Details Recorded Time Influenza, split virus, quadrivalent, preservative 8 completed La Kelton Guevara [facility] 03/21/2019 15:46:12 Past Encounters Encounter ID Performer Location Encounter Start Date Encounter Closed Date Diagnosis/Indication Diagnosis SNOMED-CT Code Diagnosis ICD10 Code Diagnosis IMO Codes Diagnosis Note [id number] SIMA MARTINEZ APRN [facility] [place] [address] [place] [address] 1 Osteoporosis 71077741 M81.0 [facility] [address]97-859- 11 injected one 60mg/1mL syringe [id number] SIM[place] [address] [place] [address] 1 02/10/2017 13:28:02 02/10/2017 15:20:18 Osteoporosis 59420684 M81.0 needs clearance labs todaynext injection due april 24, 2017 or laterlabs today Nausea 710876670 R11.0 recurring; will have her f/u with pcp Seronegati ve rheumatoid arthritis 131583883 M06.00 dance historian medication therapynor mal systemic examWithou t synovitis or dactylitis [id number] SIMA MARTINEZ APRN [facility] [place] [address] 1 04/28/2017 13:37:05 04/28/2017 14:33:24 Osteoporosis 26544324 M81.0 needs clearance labs todaynext injection due april 24, 2017 or laterlabs today [id number] SIMA MARTINEZ APRN [facility] [place] [address] 1 08/16/2017 13:19:55 08/22/2017 08:27:15 Osteoporosis 88197144 M81.0 needs clearance labs todaynext injection due october 29, 2017needs bone density --requests for it to be done close to homelabs today Nausea 084227915 R11.0 recurring; will have her f/u with pcp Seronegati ve rheumatoid arthritis 829514674 M06.00 shelter medication therapysta ble systemic exam Without major synovitis or dactylitis stiff and limited with bony deformity from RA and 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 [id number] Z79.899 Postmenopa usal osteoporosis 976001833 M81.0 [id number] [place] [address] [place] [address] 1 11/08/2017 13:18:59 11/09/2017 08:59:29 Osteoporosis 74479411 M81.0 needs clearance labs todaynext injection due october 29, 2017needs bone density --requests for it to be done close to homelabs today [id number] [place] [address] [place] [address] 1 02/13/2018 13:21:56 02/13/2018 14:05:56 Systemic sclerosis 00123735 M34.9 Seronegati ve rheumatoid arthritis 354257849 M06.00 dance historian medication therapysta ble systemic exam Without major synovitis or dactylitis stiff and limited with bony deformity from RA and OA combinatio n longterm methotrexate user [id number] Z79.899 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 elevated wbc count at 16.5 will obtain further assessment [id number] SIMA MARTINEZ APRN [facility] [place] [address] [place] [address] 1 05/16/2018 12:47:45 05/16/2018 13:29:04 Osteoporosis 34522424 M81.0 needs clearance labs todaynext injection due october 29, 2017needs bone density --requests for it to be done close to homelabs today [id number] SIMA MARTINEZ [place]N [place] [address] 1 08/08/2018 13:29:44 08/09/2018 07:56:56 Seronegative rheumatoid arthritis 351671675 M06.00 f/u on RA with chronic shelter medication therapyWit hout major synovitis or dactylitis todayconti nues with crippling and bony deformity from RA, systemic sclerosis and OA combinatio ncontinue with mtx and prn prednisone take 5 po once weekly, Systemic sclerosis 30770 008 M34.9 overlap syndrome treated as Ra longterm methotrexate user [id number] Z79.899 labs reviewed will obtain labs prior to next visit f/u 6 months or sooner White bloo d cell disorder 65768265 D72.9 elevated wbc count at 13.5 from 16.5 will obtain further assessment today all other labs reviewed [id number] SIMA MARTINEZ APRN RHEUMATOL [facility] [address] [place] [address] 03/21/2019 15:07:26 03/23/2019 13:21:44 Seronegative rheumatoid arthritis 556001981 M06.00 f/u on RA with chronic dance historian medication therapyWit hout major synovitis or dactylitis todayconti nues with crippling and bony deformity from RA, systemic sclerosis and OA combinatio ncontinue with mtx and prn prednisone take 5 po once weekly, Systemic sclerosis 62246 008 M34.9 overlap syndrome 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 [id number] 00 Z79.899 labs reviewed will obtain labs prior to next visit f/u 6 months or sooner [id number] SMIA MARTINEZ APRN R[facility] [address] [address] 10/30/2019 14:15:11 10/30/2019 15:19:58 Seronegative rheumatoid arthritis 675019952 M06.00 f/u on RA with chronic shelter medication therapyWit hout major synovitis or dactylitis todayconti nues with crippling and bony deformity from RA, systemic sclerosis and OA combinatio ncontinue with mtx and prn prednisone take 5 po once weekly, Systemic sclerosis 23324 008 M34.9 overlap syndrome 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 [id number] 00 Z79.899 labs reviewed will obtain labs prior to next visit f/u 6 months or sooner Osteoporosis 60046263 M8 1.0 needs clearance labs todaynext injection [...] ID Nieves Member ID Guarantor Name 10/30/[address] [place] [address] [id number] David Clark [id number] Mari Clark 04/28/2020 1 [place] Mari Clark [id number] Mari Clark 04/28/2020 2 [place] [id number] David Clark Jr [id number] Mari Clark 10/09/2017 PAYMENT PLAN Mari Clark Notes Date Note Type Note Provider Name and Address Organization Details Recorded Time 02/13/2018 text/html ROS as noted in the HPI no major flare in the interim, without interval infection; no s/e from medications; chronic deformities from the scleroderma and RA; having right 5th digit curling; having soa with asthma with the weather; she currently denies bowel or bladder changes, chest pain, rashes, fevers and all others are negative SIMA MARTINEZ APRN [address] [place], [address], [facility] 02/13/2018 14:09:06 08/08/2018 text/html ROS as noted in the HPI recent flare; took 15 mg prednisone one day and cut it off at the pass; she reports she is without interval infection; no s/e from medications; she has bilateral chronic deformities from the scleroderma and RA; having right 5th digit curling; she currently denies bowel or bladder changes, chest pain, soa, rashes, fevers and all others are negative SIMA MARTINEZ APRN [address] [place], [address], [facility] 08/08/2018 14:26:23 03/21/2019 text/html ROS as noted in the HPI f/u on RA; she has had some recurring bowel issues; she had [...] others are negative SIMA MARTINEZ APRN [address] [place], [address], [facility] 03/21/2019 16:07:16 10/30/2019 text/html ROS as noted in the HPI f/u on RA; she has had some recurring bowel issues and constipation; [...] [facility] but she is walking around 5000 steps daily; she is losing weight with weight watchers; she currently denies bowel or bladder changes, chest pain, soa, rashes, fevers and all others are negative SIMA MARTINEZ APRN [address] [place], [address], [facility] 10/30/2019 15:15:32 OBGyn Episode No OBEpisode recorded.
--- OUTSIDE RECORDS SUMMARY | 2025-08-08 10:05 | XMS_ITS | Clinical Summary ---
Author Organization [facility] Address [address] [place] [address] Phone Care Team Providers Care Licensing Court Magistrate Name Role Phone Osvaldo Sorensen MD Unavailable [phone] LONNIE SOLANO Primary Care Provider [phone] Reason for Visit and Chief Complaint The Chief Complaint is: R wrist pain Problems Includes: Problems addressed during this encounter and other active Problems All Visits Onset Date Resolved Date Provider Condition S tatus Joint Pain Wrist Right 02/09/2024 Michell Philip APRN Active Last Documented On 4 10:10AM ; [facility] Joint Pain Shoulder 10/17/2012 Osvaldo olson MD Active Last Documented On 3 12:57PM ; [facility] Joint Pain Hip 09/26/2012 Chelsea Slater MD Ac tive Last Documented On 2 1:28PM ; [facility] Plan of Treatment Future Appointments Date Time Location Provi evonne Follow Up 08/08/2025 11:00AM [facility] Osvaldo Sorensen MD Last Documented On 5 9:50AM ; [facility] Instructions to patient Lose weight Last Documented On 5 9:27AM ; [facility] Assessments Includes: Assessments from this encounter Findings - Overweight - Last Documented On 04/26/2025 9:17AM ; [facility] Instructions Includes: Instructions from this encounter Instructions to patient Lose weight Last Documented On 5 9:27AM ; [facility], [facility] Medical Equipment - Implanted Devices Includes: Current Devices No Medical Equipment Recorded Medications Includes: Medications discussed during this encounter and other current Medications Current Medications (continue as prescribed) Fluticasone Propionate 50 MC G/ACT Nasal Suspension 04/02/2025 Provider: LONNIE SOLANO Diagnosis: Last Documented On 5 9:26AM By Gerry Willis ; [facility], [facility] Fluconazole 100 MG Oral Tablet 04/01/2025 Provider: Diagnosis: Last Documented On 5 9:26AM By Gerry Willis ; [facility], [facility] Albuterol Sulfate HFA 108 (9 0 Base) MCG/ACT Inhalation Aerosol Solution 03/11/2025 Provider: Diagnosis: Last Documented On 5 9:26AM By Gerry Willis ; [facility], [facility] Nystatin 999543 UNIT/ML Mouth/Throat Suspension 2024 Provider: Diagnosis: Last Documented On 5 9:26AM By Gerry Willis ; [facility], [facility] Omeprazole 40 MG Oral Capsule Delayed Release 02/12/20 Provider: LONNIE SOLANO Diagnosis: Last Documented On 5 9:26AM By Gerry Willis ; [facility], [facility] busPIRone HCl 10 MG Oral Tablet 02/11/2025 Provider: LONNIE SOLANO Diagnosis: Last Documented On 5 9:26AM By Gerry Willis ; [facility], [facility] predniSONE 5 MG Oral Tablet 02/08/2025 Provider: Dagmar Lundberg MD Diagnosis: Last Documented On 5 9:26AM By Gerry Willis ; [facility], [facility] Folic Acid 1 MG Oral Tablet 02/08/2025 Provider: Dagmar Lundberg MD Diagnosis: Last Documented On 5 9:26AM By Gerry Willis ; [facility], [facility] Methotrexate Sodium 2.5 MG Oral Tablet 02/08/2025 Pr ovider: Dagmar Lundberg MD Diagnosis: Last Documented On 5 9:26AM By Gerry Willis ; [facility] Atorvastatin Calcium 40 MG Oral Tablet 10/21/2024 Pr ovider: CHELSEA FORDE MD Diagnosis: Last Documented On 5 1:13PM By Addison Preston ; [facility] predniSONE 5 MG Oral Tablet 10/19/2024 Provider: Dagmar Lundberg MD Diagnosis: Last Documented On 5 1:13PM By Addison Preston ; [facility] Azithromycin 250 MG Oral Tablet 10/09/2024 Provider: Paulette Moreno APRN Diagnosis: Last Documented On 5 1:13PM By Addison Preston ; [facility] Symbicort 80-4.5 MCG/ACT Inhalation Aerosol 10/05/2024 Provider: LONNIE SOLANO Diagnosis: Last Documented On 5 1:13PM By Addison Preston ; [facility], [facility] Montelukast Sodium 10 MG Oral Tablet 09/13/2024 Prov ider: CHELSEA FORDE MD Diagnosis: Last Documented On 5 1:13PM By Addison Preston ; [facility] Metoclopramide HCl 10 MG Oral Tablet 09/13/2024 Prov ider: LONNIE BECKGLO Diagnosis: Last Documented On 5 1:13PM By Addison Preston ; [facility] Furosemide 40 MG Oral Tablet 09/13/2024 Provider: LONNIE SOLANO Diagnosis: Last Documented On 5 1:13PM By Addison Preston ; [facility] Lisinopril 10 MG Oral Tablet 09/13/2024 Provider: CHELSEA FORDE MD Diagnosis: Last Documented On 5 1:13PM By Addison Preston ; [facility] Verapamil HCl 80 MG Oral Tablet 09/13/2024 Provider: CHELSEA FORDE MD Diagnosis: Last Documented On 5 1:13PM By Addison Preston ; [facility] Past Medications on file Magic Mouthwash (L/N/B/M) Oral Solution 11/20/2024 - 11/26/2024 Provider: Osvaldo olson MD Diagnosis: swish, gargle spit 1-2 teasp oons (5-10 mL) every 4-6 hours as needed Last Documented On 5 10:33AM By Dr. Sorensen ; [facility] Vitamin C 1000 MG Oral Tablet 11/12/2024 - 01/11/2025 Provider: Osvaldo olson MD Diagnosis: once a day take 1 tablet once daily post surgery Last Documented On 5 12:55PM By Lita Barrera ; [facility] Naproxen 500 MG Oral Tablet 11/12/2024 - 12/12/2024 Pr ovider: Osvaldo Sorensen MD Diagnosis: take one tablet twice a day prn following surger y Last Documented On 5 12:55PM By Lita Barrera ; [facility] HYDROcodone-Acetaminophen 7. 5-325 MG Oral Tablet 11/12/2024 - 11/15/2024 Provider: Osvaldo Sorensen MD Diagnosis: 1 tab every 6 hrs prn pain Last Documented On 5 12:55PM By Dr. Sorensen ; [facility] Vitamin C 1000 MG Oral Tablet 08/03/2024 - 10/02/2024 Provider: Osvaldo olson MD Diagnosis: once a day take 1 tablet once daily post surgery Last Documented On 4 9:39AM By Lita Barrera ; [facility] Naproxen 500 MG Oral Tablet 08/03/2024 - 09/02/2024 Pr ovider: Osvaldo Sorensen MD Diagnosis: take one tablet twice a day prn following surger y Last Documented On 4 9:39AM By Lita Barrera ; [facility] [place] 5-325 MG OR TABS 06/19/2014 - 07/19/2014 Provider: Jose Long MD Diagnosis: DEGENERATIVE MARY NT DISEASE KNEE Last Documented On 4 3:42PM By Rome Marinelli User ; [facility] Naproxen 500 MG [...] Last Documented On 2 10:00AM By Roseanne Norton ; [facility] Naproxen 500 MG OR TABS 11/22/2011 - 12/07/2011 Provid er: Osvaldo Sorensen MD Diagnosis: sx 2-15-12//cr Last Documented On 2 10:00AM By Roseanne Norton ; [facility] Lortab 7.5-500 MG OR TABS 07/29/2011 - 08/04/2011 Prov ider: Osvaldo Sorensen MD Diagnosis: [facility] [phone] Last Documented On 1 10:49AM By Stacey Peter ; [facility] OxyCONTIN 20 MG OR TB12 07/02/2011 - 07/16/2011 Provid er: Osvaldo Sorensen MD Diagnosis: sx 07-05-11//cr Last Documented On 1 1:18PM By Roseanne Norton ; [facility] Voltaren 50 MG OR TBEC 07/02/2011 - 07/09/2011 Provide r: Osvaldo Sorensen MD Diagnosis: sx 9-11//cr Last Documented On 1 1:17PM By Roseanne Norton ; [facility] Percocet 5-325 MG OR TABS 07/02/2011 - 07/09/2011 Prov ider: Osvaldo Sorensen MD Diagnosis: sx 07-05-cr Last Documented On 1 1:16PM By Roseanne [...] Vital Signs from this encounter Vital Name 04/25/2025 09:27A Height (in) 64 Weight (lb) 175 Body Mass Index 30 Body Surface Area 1.8 Note: aek Last Documented: On 04/25/2025 9:27AM ; [facility] Results Includes: Results discussed during this [...] fully healed without any sign of infection Social History Description Last Updated Caffeine use 02/10/2024 Last Documented On 5 9:26AM ; [facility] No recent change in diet 02/10/2024 Last Documented On 5 9:26AM ; [facility] Not a current smoker. 02/10/2024 Last Documented On 5 9:26AM ; [facility] Not exercising regularly 02/10/2024 Last Documented On 5 9:26AM ; [facility] Not using alcohol 02/10/2024 Last Documented On 5 9:26AM ; [facility] Not using drugs 02/10/2024 Last Documented On 5 9:26AM ; [facility] Tobacco non-user 02/09/2024 Last Documented On 5 9:26AM ; [facility] No tobacco use 06/19/2014 Last Documented On 5 9:26AM ; [facility] Smoking status : Never smoked/ Recode: 4 06/19/2014 Last Documented On 5 9:26AM ; [facility] Procedures and Surgical History Surgical History Last Updated History of History of Gallbladder 2023 Last Documented On 5 9:26AM ; [facility] Past Surgical History: total wrist, thum b fusion, finger joints 02/10/2024 Last Documented On 5 9:26AM ; [facility] Medical History Includes: Medical History addressed during this encounter Description Last Updated scleroderma, IBS 02/10/2024 Last Documented On 5 9:26AM ; [facility] History of arthritis 02/10/2024 Last Documented On 5 9:26AM ; [facility] History of asthma 02/10/2024 Last Documented On 5 9:26AM ; [facility] History of Fractures 02/10/2024 Last Documented On 5 9:26AM ; [facility] History of Heartburn / Acid Reflux 02/09 Last Documented On 5 9:26AM ; [facility] History of History of Rheumatology 02/09 Last Documented On 5 9:26AM ; [facility] History of Hypertension 02/10/2024 Last Documented On 5 9:26AM ; [facility] History of osteoporosis 02/10/2024 Last Documented On 5 9:26AM ; [facility] Family History Includes: Family History addressed during this encounter Description Last Updated Diabetes mellitus 02/10/2024 Last Documented On 5 9:26AM ; [facility] Family history of cancer 02/10/2024 Last Documented On 5 9:26AM ; [facility] Family history of osteoporosis 4 Last Documented On 5 9:26AM ; [facility] Family history of rheumatoid arthritis 0 02/10/2024 Last Documented On 5 9:26AM ; [facility] Family history of systemic hypertension 02/10/2024 Last Documented On 5 9:26AM ; [facility] Stroke / Seizures 02/10/2024 Last Documented On 5 9:26AM ; [facility] Review of Systems Includes: Review of Systems [...] Active Last Documented On 5 9:25AM ; [facility] Encounters Encounter Provider Location Date Check-In Time Check-Out Time Diagnosis Follow Up [facility] 5 9:19AM 10:22AM Overweight Insurance Includes: Active Insurance Policies Plan Name Member ID Group # Subscriber Relationship Effect apryl Dates 1 - [employer] [id number] Mari Segura f Clinical Notes Includes: Clinical Notes from this encounter * Progress note Date Encounter Last Documented by 04/25/2025 Follow Up Last documented on 04/26/2025; 9:17 AM, [facility]; [facility] Active Problems & Conditions - Joint [...] Tablet 90 days, 0 refills - Nystatin [id number] UNIT/ML Mouth/Throat Suspension 7 days, 0 refills [...] weight Care Team - LONNIE SOLANO - DIRECTOR OF PARTNERSHIPS Notes This dictation was done with voice [...]
--- OUTSIDE RECORDS SUMMARY | 2025-08-08 10:05 | XMS_ITS | Referral Summary ---
Author Organization [employer] ([place], [place], [place], [place]) Address [address] [place] [address] Care Team Providers Care Vault Maker Name Role Phone Sandoval Tuttle MD Primary Care Provider [phone] Allergies Active Allergy Reactions Criticality Noted Date [...] mg total) by mouth daily. Active pancrelipase, Jir-Duci-Zpfc, (Creon) 36,000-114,000- 180,000 unit cpDR capsule Take [...] Date Moreno rded Speak language other than Czech at home Not on file 06/08/2024 Want [...] on file Medical Devices Implanted Type Area Oven Loader Device Identifier Shelf Expiration Date Model / Serial / Lot Wire C Trcr 0.932ynn3.14mm Ss [id number] - [id number] Implanted:Qty: 4 on 11/14/2024 by Osvaldo Sorensen MD at [facility] IMPLANTS Right: Hand [employer]MED:[employer] 08/07/2029 [id number] / / [id number] Wire C Trcr 0.674slf2.14mm Ss [id number] - [id number] Implanted:Qty: 4 on 11/14/2024 by Osvaldo Sorensen MD at [facility] IMPLANTS Right: Hand [employer]MED:[employer] 11/07/2028 [id number] / / [id number] Insurance [facility] MEDICARE HMO Advance Directives For more information, please contact: [phone] * Full Code (Latest Code Status on File) Date Activated Date Inactivated Comments 11/14/2024 9:15 AM 11/14/2024 4:25 PM Care Teams Vault Maker Relationship Specialty Start Date End Date Sandoval Tuttle MD [address] [facility] [address] [place] [address] PCP - General Family Medicine 11/14/24
--- OUTSIDE RECORDS SUMMARY | 2025-08-08 10:05 | XMS_ITS ---
Care Plan - [facility], [facility] Created on: August 08, 2025 Yuliana Clarkrandy Flowers .0 : 1960 Sex: Female Author Organization [facility], [facility] Address [address] [place] [address] Phone Care Team Providers Care Club Concierge Name Role Phone Osvaldo Sorensen MD Unavailable [phone] LONNIE SOALNO Primary Care Provider [phone]
--- OUTSIDE RECORDS SUMMARY | 2025-08-08 10:05 | XMS_ITS | Clinical Summary ---
Author Organization [employer] ([place], [place], [place], [place]) Address [address] [place] [address] Care Team Providers Care Site Surveyor Name Role Phone Sandoval Tuttle MD Primary Care Provider + [phone] Allergies Active Allergy Reactions Criticality Noted Date [...] mg total) by mouth daily. Active pancrelipase, Ljw-Ibwl-Zuwe, (Creon) 36,000-114,000- 180,000 unit cpDR capsule Take [...] Date Moreno rded Speak language other than Yoruba at home Not on file 06/08/2024 Want [...] 11/05/2025 11/05/2024 Medical Devices Implanted Type Area Mental Health Clinician Device Identifier Shelf Expiration Date Model / Serial / Lot Wire C Trcr 0.678dkt4.14mm Ss [id number] - [id number] Implanted:Qty: 4 on 11/14/2024 by Osvaldo Sorensen MD at [facility] IMPLANTS Right: Hand [employer] 08/07/2029 [id number] / / [id number] Wire C Trcr 0.490nug8.14mm Ss [id number] - [id number] Implanted:Qty: 4 on 11/14/2024 by Osvaldo Sorensen MD at [facility] IMPLANTS Right: Hand [employer] 11/07/2028 [id number] / / [id number] Insurance [employer] MEDICARE HMO Advance Directives For more information, please contact: [phone] * Full Code (Latest Code Status on File) Date Activated Date Inactivated Comments 11/14/2024 9:15 AM 11/14/2024 4:25 PM Care Teams Site Surveyor Relationship Specialty Start Date End Date Sandoval Tuttle MD [address] [place] [facility] [address] [place] [address] PCP - General Family Medicine 11/14/24
--- OUTSIDE RECORDS SUMMARY | 2025-08-08 10:05 | XMS_ITS | Clinical Summary ---
Author Organization [facility] Address [address] [place] [address] Phone Care Team Providers Care Duty Manager Name Role Phone Osvaldo Sorensen MD Unavailable [phone] LONNIE SOLANO Primary Care Provider [phone] Reason for Visit and Chief Complaint The Chief Complaint is: R wrist pain Problems Includes: Problems addressed during this encounter and other active Problems All Visits Onset Date Resolved Date Provider Condition S tatus Joint Pain Wrist Right 02/09/2024 Michell Philip APRN Active Last Documented On 4 10:10AM ; [facility] Joint Pain Shoulder 10/17/2012 Osvaldo olson MD Active Last Documented On 3 12:57PM ; [facility] Joint Pain Hip 09/26/2012 Chelsea Slater MD Ac tive Last Documented On 2 1:28PM ; [facility] Plan of Treatment Future Appointments Date Time Location Provi evonne Follow Up 08/08/2025 11:00AM [facility] Osvaldo Sorensen MD Last Documented On 5 9:50AM ; [facility] Instructions to patient Lose weight Last Documented On 5 10:25AM ; [facility] Assessments Includes: Assessments from this encounter Findings Patient has severe rheumatoid arthritis. The wounds are clean and dry. She has good alignment of the MP joints. She has minimal motion at the interphalangeal joints. - Last Documented On 12/17/2024 10:26AM ; [facility] At this point she is doing well she is going to continue with therapy and bracing. She will return to clinic for follow up in a few weeks. - Last Documented On 12/17/2024 10:26AM ; [facility] Instructions Includes: Instructions from this encounter Instructions to patient Lose weight Last Documented On 10:25AM ; [facility] Medical Equipment - Implanted Devices Includes: Current Devices No Medical Equipment Recorded Medications Includes: Medications discussed during this encounter and other current Medications Current Medications (continue as prescribed) Fluticasone Propionate 50 MC G/ACT Nasal Suspension 04/02/2025 Provider: LONNIE SOLANO Diagnosis: Last Documented On 9:26AM By Gerry SHEN [facility], [facility] Fluconazole 100 MG Oral Tablet 04/01/2025 Provider: Diagnosis: Last Documented On 9:26AM By Gerry Willis ; [facility], [facility] Albuterol Sulfate HFA 108 (9 0 Base) MCG/ACT Inhalation Aerosol Solution 03/11/2025 Provider: Diagnosis: Last Documented On 9:26AM By Gerry Willis ; [facility], [facility] Nystatin 359420 UNIT/ML Mouth/Throat Suspension 2024 Provider: Diagnosis: Last Documented On 9:26AM By Gerry Kwong [facility], [facility] Omeprazole 40 MG Oral Capsule Delayed Release 02/12/20 Provider: LONNIE SOLANO Diagnosis: Last Documented On 5 9:26AM By Gerry Kwong [facility], [facility] busPIRone HCl 10 MG Oral Tablet 02/11/2025 Provider: LONNIE SOLANO Diagnosis: Last Documented On 9:26AM By Gerry Willis ; [facility], [facility] predniSONE 5 MG Oral Tablet 02/08/2025 Provider: Dagmar Lundberg MD Diagnosis: Last Documented On 9:26AM By Gerry Willis ; [facility], [facility] Folic Acid 1 MG Oral Tablet 02/08/2025 Provider: Dagmar Lundberg MD Diagnosis: Last Documented On 5 9:26AM By Gerry Willis ; [facility] Methotrexate Sodium 2.5 MG Oral Tablet 02/08/2025 Pr ovider: Dagmar Lundberg MD Diagnosis: Last Documented On 5 9:26AM By Gerry Willis ; [facility] Atorvastatin Calcium 40 MG Oral Tablet 10/21/2024 Pr ovider: CHELSEA FORDE MD Diagnosis: Last Documented On 5 1:13PM By Addison Preston ; [facility] predniSONE 5 MG Oral Tablet 10/19/2024 Provider: Dagmar Lundberg MD Diagnosis: Last Documented On 5 1:13PM By Addison Preston ; [facility] Azithromycin 250 MG Oral Tablet 10/09/2024 Provider: Paulette Moreno APRN Diagnosis: Last Documented On 5 1:13PM By Addison Preston ; [facility] Symbicort 80-4.5 MCG/ACT Inhalation Aerosol 10/05/2024 Provider: LONNIE SOLANO Diagnosis: Last Documented On 5 1:13PM By Addison Preston ; [facility] Montelukast Sodium 10 MG Oral Tablet 09/13/2024 Prov ider: CHELSEA FORDE MD Diagnosis: Last Documented On 5 1:13PM By Addison Preston ; [facility] Metoclopramide HCl 10 MG Oral Tablet 09/13/2024 Prov ider: LONNIE MULBERRY Diagnosis: Last Documented On 5 1:13PM By Addison Preston ; [facility] Furosemide 40 MG Oral Tablet 09/13/2024 Provider: LONNIE BECKBERRY Diagnosis: Last Documented On 5 1:13PM By Addison Preston ; [facility] Lisinopril 10 MG Oral Tablet 09/13/2024 Provider: CHELSEA FORDE MD Diagnosis: Last Documented On 5 1:13PM By Addison Preston ; [facility] Verapamil HCl 80 MG Oral Tablet 09/13/2024 Provider: CHELSEA FORDE MD Diagnosis: Last Documented On 5 1:13PM By Addison Preston ; [facility] Past Medications on file Magic Mouthwash (L/N/B/M) Oral Solution 11/20/2024 - 11/26/2024 Provider: Osvaldo olson MD Diagnosis: swish, gargle spit 1-2 teasp oons (5-10 mL) every 4-6 hours as needed Last Documented On 5 10:33AM By Dr. Sorensen ; [facility], [facility] Vitamin C 1000 MG Oral Tablet 11/12/2024 - 01/11/2025 Provider: Osvaldo olson MD Diagnosis: once a day take 1 tablet once daily post surgery Last Documented On 5 12:55PM By Lita Barrera ; [facility] Naproxen 500 MG Oral Tablet 11/12/2024 - 12/12/2024 Pr ovider: Osvaldo Sorensen MD Diagnosis: take one tablet twice a day prn following surger y Last Documented On 12:55PM By Lita Barrera ; [facility] HYDROcodone-Acetaminophen 7. 5-325 MG Oral Tablet 11/12/2024 - 11/15/2024 Provider: Osvaldo Sorensen MD Diagnosis: 1 tab every 6 hrs prn pain Last Documented On 12:55PM By Dr. Sorensen ; [facility] Vitamin C 1000 MG Oral Tablet 08/03/2024 - 10/02/2024 Provider: Osvaldo olson MD Diagnosis: once a day take 1 tablet once daily post surgery Last Documented On 4 9:39AM By Lita Barrera ; [facility] Naproxen 500 MG Oral Tablet 08/03/2024 - 09/02/2024 Pr ovider: Osvaldo Sorensen MD Diagnosis: take one tablet twice a day prn following surger y Last Documented On 4 9:39AM By Lita Barrera ; [facility] Mal[place] 5-325 MG OR TABS 06/19/2014 - 07/19/2014 Provider: Jose Long MD Diagnosis: DEGENERATIVE MARY NT DISEASE KNEE Last Documented On 4 3:42PM By Rome Marinelli User ; [facility] Naproxen 500 MG OR TABS 10/17/2012 - 11/01/2012 Provid er: Osvaldo Sorensen MD Diagnosis: sx 1-- //cr Last Documented On 3 1:15PM By Roseanne Yung ; [facility] Lortab 7.5-500 MG OR TABS 10/17/2012 - 10/22/2012 Prov ider: Osvaldo Sorensen MD Diagnosis: sx 1 //cr Last Documented On 3 1:15PM By Roseanne Yung ; [facility] Lortab 7.5-500 MG OR TABS 11/22/2011 - 12/02/2011 Prov ider: Osvaldo Sorensen MD Diagnosis: sx 2-//cr Last Documented On 2 10:00AM By Roseanne Barragan ; [facility] OxyCONTIN 20 MG OR TB12 11/22/2011 - 12/02/2011 Provid er: Osvaldo Sorensen MD Diagnosis: sx 2--//cr Last Documented On 2 10:00AM By Roseanne Barragan ; [facility] Naproxen 500 MG OR TABS 11/22/2011 - 12/07/2011 Provid er: Osvaldo Sorensen MD Diagnosis: sx 2-//cr Last Documented On 2 10:00AM By Roseanne Barragan ; [facility] Lortab 7.5-500 MG OR TABS 07/29/2011 - 08/04/2011 Prov ider: Osvaldo Sorensen MD Diagnosis: [facility] [phone] Last Documented On 1 10:49AM By Stacey [...] Prov ider: Osvaldo Sorensen MD Diagnosis: sx 11//cr Last Documented On 1 1:16PM By Roseanne Barragan ; [facility] Voltaren 50 MG OR TBEC 08/07/2008 - 08/14/2008 Provide r: Osvaldo Sorensen MD Diagnosis: cb Last Documented On 8 10:41AM By Nikky Andrews ; [facility] Percocet 5-325 MG OR TABS 08/07/2008 - 08/12/2008 Prov ider: Osvaldo Sorensen MD Diagnosis: cb Last Documented On 8 10:40AM By Nikky Andrews ; [facility] OxyCONTIN 20 MG OR TB12 [...] History of Present Illness from this encounter HPI Patient is here today for follow up after fusion of the metacarpophalangeal joints of the right hand. She is doing reasonably well. Her function is improving. Her sutures have been removed. Social History Description Last Updated Caffeine use 02/10/2024 Last Documented On 5 11:05AM ; [facility] No recent change in diet 02/10/2024 Last Documented On 5 11:05AM ; [facility] Not a current smoker. 02/10/2024 Last Documented On 5 11:05AM ; [facility] Not exercising regularly 02/10/2024 Last Documented On 5 11:05AM ; [facility], [facility] Not using alcohol 02/10/2024 Last Documented On 5 11:05AM ; [facility] Not using drugs 02/10/2024 Last Documented On 5 11:05AM ; [facility], [facility] Tobacco non-user 02/09/2024 Last Documented On 5 11:05AM ; [facility], [facility] No tobacco use 06/19/2014 Last Documented On 5 11:05AM ; [facility] Smoking status : Never smoked/ Recode: 4 06/19/2014 Last Documented On 5 11:05AM ; [facility], [facility] Procedures and Surgical History Includes: Procedures from this encounter Procedures Code Diagnosis Performing Provider Service L ocation Service Date use of tobacco assessment performed 1000F Last Documented On 5 10:25AM ; [facility] review of medications documented 1160F Last Documented On 5 10:25AM ; [facility] brace Last Documented On 5 10:25AM ; [facility], [facility] Surgical History Last Updated History of History of Gallbladder 2023 Last Documented On 5 11:05AM ; [facility], [facility] Past Surgical History: total wrist, thum b fusion, finger joints 02/10/2024 Last Documented On 5 11:05AM ; [facility], [facility] Medical History Includes: Medical History addressed during this encounter Description Last Updated scleroderma, IBS 02/10/2024 Last Documented On 5 11:05AM ; [facility] History of arthritis 02/10/2024 Last Documented On 5 11:05AM ; [facility] History of asthma 02/10/2024 Last Documented On 5 11:05AM ; [facility] History of Fractures 02/10/2024 Last Documented On 5 11:05AM ; [facility] History of Heartburn / Acid Reflux 02/09 Last Documented On 5 11:05AM ; [facility] History of History of Rheumatology 02/09 Last Documented On 5 11:05AM ; [facility] History of Hypertension 02/10/2024 Last Documented On 5 11:05AM ; [facility] History of osteoporosis 02/10/2024 Last Documented On 5 11:05AM ; [facility], [facility] Family History Includes: Family History addressed during this encounter Description Last Updated Diabetes mellitus 02/10/2024 Last Documented On 5 11:05AM ; [facility] Family history of cancer 02/10/2024 Last Documented On 5 11:05AM ; [facility] Family history of osteoporosis 4 Last Documented On 5 11:05AM ; [facility] Family history of rheumatoid arthritis 0 02/10/2024 Last Documented On 5 11:05AM ; [facility] Family history of systemic hypertension 02/10/2024 Last Documented On 5 11:05AM ; [facility] Stroke / Seizures 02/10/2024 Last Documented On 5 11:05AM ; [facility] Review of Systems Includes: Review [...] Active Last Documented On 5 9:25AM ; [facility], [facility] Encounters Encounter Provider Location Date Check-In Time Check- Out Time Diagnosis Post Op Osvaldo Sorensen MD [facility] 5 10:53AM 11:44AM Insurance Includes: Active Insurance Policies Plan Name Member ID Group # Subscriber Relationship Effect apryl Dates 1 - [employer] [id number] Mari gasca Clinical Notes Includes: Clinical Notes from this encounter * Progress note Date Encounter Last Documented by 11/29/2024 Post Op Last documented on 12/17/2024; 10:26 AM, Osvaldo Sorensen MD; [facility], [facility] Active Problems & Conditions - [...] documented. Care Team - LONNIE SOLANO - PHYSICIAN ASSISTANT CERTIFIED Notes This dictation was done with voice [...]
[2025-08-08 10:44] LABS: Hematocrit 41.6 % (37.0-47.0); Hemoglobin 13.0 g/dL (12.2-16.2); Immature Granulocytes % 0.7 %; Mean Corpuscular HGB Conc 31.3 g/dL (31.8-35.4); Mean Corpuscular Hemoglobin 32.3 pg (27.0-31.2); Mean Corpuscular Volume 103.2 fl (81-99); Nucleated Red Blood Cells % 0 %; Platelet Count 304 K/mm3 (142-424); Red Blood Count 4.03 M/mm3 (4.20-5.40); Red Cell Distribution Width-SD 60.8 fL; White Blood Count 11.4 K/mm3 (4.8-10.8)
[2025-08-08 11:25] LABS: Chloride 100 mmol/L (98-107)
[2025-08-08 11:26] LABS: Albumin Level 2.9 g/dl (3.5-5.0); Potassium 3.8 mmoL/L (3.5-5.1); Sodium 134 mmol/L (136-145)
[2025-08-08 11:28] LABS: Alanine Aminotransferase 27 U/L (12-78); Alkaline Phosphatase 88 U/L (38-126); Anion Gap 9.8 mEq/L (5-15); Aspartate Amino Transferase 34 U/L (14-36); Bilirubin,Total 0.4 mg/dl (0.2-1.3); Blood Urea Nitrogen 18 mg/dl (7-17); Carbon Dioxide 28 mmol/L (22.0-30.0); Creatinine,Serum 1.00 mg/dl (0.52-1.04); Estimated Glomerular Filt Rate 56 ml/min (>60); GFR (African American) 68 ML/MIN (>60)
[2025-08-08 11:29] LABS: Albumin/Globulin Ratio 0.8 (1.1-1.8); Calcium 8.2 mg/dl (8.4-10.2); Globulin 3.5 g/dL (1.3-3.2); Glucose 86 mg/dl (74-100); Total Protein,Serum 6.4 g/dl (6.3-8.2)
[2025-08-08 13:15] LABS: C-Reactive Protein 4.2 mg/L (0-4)
== END 2025-08-08 23:59 | disposition home or self-care (01) ==
LOC: LAB 09:37
PROVIDERS: PCP Family Medicine; Visit Provider Internal Medicine Rheumatology
DX: M81.0 Age-related osteoporosis without current pathological fracture (principal); M35.1 Other overlap syndromes; J84.9 Interstitial pulmonary disease, unspecified; Z79.899 Other long term (current) drug therapy; Z79.52 Long term (current) use of systemic steroids
CPT/HCPCS: 36415; 80053; 85025; 85651; 86140

== ENCOUNTER 2025-08-15 09:37 | Outpatient (CLI) | payer MEDICARE, SELFPAY ==
--- OUTSIDE RECORDS SUMMARY | 2024-05-02 05:15 | XMS_ITS ---
Author Organization [facility] Address [facility] [address] [place] [id number] Care Team Providers Care Mine Safety Manager Name Role Phone Sandoval Tuttle Primary Care Provider [phone] Allergies Allergen (clinical drug ingredient) Drug/Non Drug Allergy documented on EMR Reaction Allergy Type Onset Date Status metronidazole Flagyl stomach upset Drug Allergy Active Penicillin rash Drug Allergy Active REASON FOR VISIT vertigo Medications Medication SIG (Take, Route, Frequency, Duration) Notes Start Date End Date Status busPIRone HCl 10 MG 1 tab(s) orally 2 ti mes a day; Duration: 90 days Active Metoclopramide HCl 10 MG TAKE ONE TABLET BY MOUTH TWICE A DAY; Duration: 90 Active Verapamil HCl 80 MG 1 tab(s) orally once a day; Duration: 90 days Active Omeprazole 40 MG TAKE ONE CAPSULE BY MOUTH DAILY; Duration: 90 days Active Meclizine HCl 25 MG 1 tablet as needed O rally every 8 hrs 05/02/2024 Active Fluticasone Propionate 50 MCG/ACT 1 spray(s) intranasally once a day Active Montelukast Sodium 10 MG 1 tab(s) orally once a day; Duration: 90 days Active Famotidine 20 MG 1 tab(s) orally bedtime Active Furosemide 40 MG TAKE 1 TABLET EVERY DAY; Duration: 90 Active Atorvastatin Calcium 20 MG 1 tab(s) oral ly once a day (at bedtime); Duration: 90 days Active Lisinopril 10 MG 1 tab(s) orally once a day; Duration: 90 days Active Symbicort 80-4.5 MCG/ACT INHALE 2 PUFFS INTO THE LUNGS 2 TIMES DAILY; Duration: 90 days Active Loratadine 10 MG 1 tablet Orally Once a day; Duration: 30 day(s) Active Folic Acid 1 MG 3 tab orally once a day Active Centrum Silver Ultra Womens - 1 tab(s) orally once a day; Duration: 90 day(s) 10/24/2013 Active Methotrexate 2.5 MG 8 tab orally once weekly 12/18 Active predniSONE 5 MG 1 tab orally once a day Active Vital Signs Blood pressure systolic 94 mm Hg 05/02/20 Blood pressure diastolic 58 mm Hg 024 Height 65 in 05/02/2024 Weight 180 lbs 05/02/2024 BMI 29.95 kg/m2 05/02/2024 Encounters Encounter Location Date Provider Diagnosis [facility] [facility] 36 [facility] [address] [place], [place] [id number] 05/02/2024 Sandoval Tuttle Dizziness R42 and Asthma, unspecified asthma severity, unspecified whether complicated, unspecified whether persistent J45.909 Assessments Encounter Date Diagnosis (ICD Code) Assessment Notes Treatment Notes Treatment Clinical Notes Section Notes 05/02/2024 Dizziness (ICD-10 - R42) 05/02/2024 Asthma, unspecified asthma severity, unspecified whether complicated, unspecified whether persistent (ICD-10 - J45.909) Plan Of Treatment Medication Medication Name Sig Start Date Stop Date Notes Meclizine HCl 25 MG 1 tablet as needed O rally every 8 hrs 05/02/2024 Symbicort 80-4.5 MCG/ACT INHALE 2 PUFFS INTO THE LUNGS 2 TIMES DAILY; Duration: 90 days Next Appt Details Follow Up: 6 Months, Reason: Provider Name:Sandoval Kern ry, 11/01/2025 11:00:00 AM, [address] [facility] 36 [facility], [address], [place], [place], [id number], Progress Notes * Yuliana PIERCEeDOB: (64 yo F)Acc No.[id number]:05/02/2024 Progress Notes Patient: Mari HILARIO Provider: Eliot Tuttle M.D. :1960 A ge:63 Y S ex:Female Date:05/02/2024 Address:[address] [place], [place] [id number] Subjective: * Chief Complaints: * 1 . Vertigo. * HPI: N eurology: 63 year old female presents with c/o Dizziness P t complains of dizziness when she lays down in bed for about 3 weeks. Pt states when she lays on her back the ceiling spins . Pt states her ear feel full and like there is something heavy on her head. * ROS: D ERMATOLOGY: no R rosemary. n o H yris. G ASTROENTEROLOGY: no N ausea. n o V omiting. M USCULOSKELETAL: Positive for p atient is planning on having fusion surgery on right hand to correct contractures. U ROLOGY: no D ifficulty urinating. n o B lood in urine. * Medical History: H ypertension, Hyperlipidemia, Osteoporosis, Rheumatoid arthritis, followed by Rheumatology, Scleroderma, Esophageal reflux, Post op anemia 01/18, s/p transfusion of 2 units of PRBC, Raynaud's, Asthma, COVID 19, Dx: 2019, Skin cancer. * Surgical History: B ilateral Hips , Bilateral Knees , Bilateral Wrists , finger 2 on lt hand one on rt hand , LT lbow , Colonoscopy 1999, Cholecystectomy 01/22/2011, RT Wrist Replacement 07/05/2011, Thumb Fused 11/24/2011, RT Thumb Repair 10/17/2012, Cataract x 2 10/2015. * Hospitalization/Major Diagno stic Procedure: S tomach Pain 12/24/2010. * Family History: F ather: alive, hypotension. M other: , cancer, lung. 1 sister(s) . . * Social History: C URRENT TOBACCO USE S moking Status: Patient does NOT smoke, Former Smoker: No. C affeine: yes, frequency: tea. Marital Status: . Past smoking status: no, Smoking status: Does not smoke, Former Smoker: No. Janisbrenda is Stacy Talavera. * Medications: T aking Loratadine 10 MG Tablet 1 tablet Orally Once a day , Taking predniSONE 5 MG Tablet 1 tab orally once a day , Taking Methotrexate 2.5 MG Tablet 8 tab orally once weekly , Taking Centrum Silver Ultra Womens - Tablet 1 tab(s) orally once a day , Taking Folic Acid 1 MG Tablet 3 tab orally once a day , Taking Atorvastatin Calcium 20 MG Tablet 1 tab(s) orally once a day (at bedtime) , Taking Furosemide 40 MG Tablet TAKE 1 TABLET EVERY DAY , Taking Symbicort 80-4.5 MCG/ACT Aerosol INHALE 2 PUFFS INTO THE LUNGS 2 TIMES DAILY , Taking Famotidine 20 MG Tablet 1 tab(s) orally bedtime , Taking Lisinopril 10 MG Tablet 1 tab(s) orally once a day , Taking Verapamil HCl 80 MG Tablet 1 tab(s) orally once a day , Taking Omeprazole 40 MG Capsule Delayed Release TAKE ONE CAPSULE BY MOUTH DAILY , Taking Montelukast Sodium 10 MG Tablet 1 tab(s) orally once a day , Taking Fluticasone Propionate 50 MCG/ACT Suspension 1 spray(s) intranasally once a day , Taking Metoclopramide HCl 10 MG Tablet TAKE ONE TABLET BY MOUTH TWICE A DAY , Taking busPIRone HCl 10 MG Tablet 1 tab(s) orally 2 times a day , Discontinued Colchicine 0.6 MG Tablet 1 tablet Orally once daily , Discontinued Nebulizer - Miscellaneous as directed As needed , Discontinued Albuterol Sulfate (2.5 MG/3ML) 0.083% Nebulization Solution 3 ml as needed Inhalation every 4 hrs as needed , Medication List reviewed and reconciled with the patient * Allergies: P enicillin: rash, Flagyl: stomach upset. Objective: * Vitals: W t:180, Temp:98.0, BP:94/58, Nurse:marzena, Ht: 65, BMI:29.95. * Examination: G eneral Examination: General Appearance: N AD, sitting in a wheel chair. H eart: R SR. L ungs: c lear to auscultation. S kin: n o rash. B ack: d orsal kyphosis. E xtremities: c ontractures noted in hands. Assessment: * Assessment: 1. D izziness - R42 (Primary) 2 . A sthma, unspecified asthma severity, unspecified whether complicated, unspecified whether persistent - J45.909 Plan: * Treatment: 2. A sthma, unspecified asthma severity, unspecified whether complicated, unspecified whether persistent Refill Symbicort Aerosol, 80-4.5 MCG/ACT, INHALE 2 PUFFS INTO THE LUNGS 2 TIMES DAILY, 90 days, 3, Refills 4. * Procedure Codes: G 2211 Complex e/m visit add on * Follow Up: 6 Months * Images: Billing Information: * Visit Code: 79171 Office Visit, Est Pt., Level 3. * Procedure Codes: G2211 Complex e/m visit add on. * Electronic signature of Alice Tuttle MD on 08/15/2025 at 09:42 AM EST Sign off status: Pending * Provider: Eliot Tuttle M.D. Date: 0 05/02/2024 Generated for Marci khalil/Octavia/Elliotransmitting on: 10/15/2024 09:42 AM EST History and Physical Notes * HPI (History of Present Illness) Category Sub-Category Detail Notes Category Not es Neurology Dizziness Pt complains of dizziness when she lays down in bed for about 3 weeks. Pt states when she lays on her back the ceiling spins . Pt states her ear feel full and like there is something heavy on her head Examination Category Sub-Category Detail Notes Category Not es General Examination Heart: RSR Lungs: clear to auscultatio n Extremities: contractures noted i n hands General Appearance: NAD, sitting in a wh eel chair Skin: no rash Back: dorsal kyphosis
--- OUTSIDE RECORDS SUMMARY | 2024-05-17 06:30 | XMS_ITS ---
Author Organization [facility] Address [facility] 36 [facility] [address] [place] [phone] Care Team Providers Care Parking Manager Name Role Phone Sandoval Tuttle Primary Care Provider [phone] REASON FOR VISIT 6 month check up Encounters Encounter Location Date Provider Diagnosis [facility] [address] [place] [id number] 05/17/2024 Sandoval Tuttle Plan Of Treatment Next Appt Details Provider Name:Sandoval Kern ry, 11/01/2025 11:00:00 AM, [address], [address], [place], [place], [phone], Progress Notes * Papa PIERCEOB: (64 yo F)Acc No.[id number]:05/17/2024 Progress Notes Patient: Mari HILARIO Provider: Eliot Tuttle M.D. :1960 A ge:63 Y S ex:Female Date:05/17/2024 [facility] Subjective: * Chief Complaints: * 1 . 6 month check up. * Medical History: Objective: * Vitals: Assessment: Plan: * Treatment: * Images: Billing Information: * Visit Code: * Procedure Codes: * Electronic signature of Alice Tuttle MD on 08/15/2025 at 09:42 AM EST Sign off status: Pending * Provider: Eliot Tuttle M.D. Date: 0 05/17/2024 Generated for Marci khalil/Octavia/eTransmitting on: 10/15/2024 09:42 AM EST
--- OUTSIDE RECORDS SUMMARY | 2024-08-10 10:15 | XMS_ITS ---
Author [facility] Address [facility] [facility] [address] [phone] Care Team Providers Care Bell Spinner Sousaphones Name Role Phone Sandoval Tuttle Primary Care Provider [phone] Allergies Allergen (clinical drug ingredient) Drug/Non Drug [...] 08/10/2024 Encounters Encounter Location Date Provider Diagnosis [facility] [facility] [address] [phone] 08/10/2024 Sandoval Tuttle Acute cough R 05.1 [address], [place], [phone], Progress Notes * Yuliana PIERCEeDOB: 1 (64 yo F)Acc No.[id number]:08/10/2024 Progress Notes Patient: Mari HILARIO Provider: Eliot Tuttle M.D. :1960 A ge:63 Y S ex:Female Date:08/10/2024 Address[facility] Subjective: * Chief Complaints: * 1 . [...] G 2211 Complex e/[place], [address] CAPILLARY BLOOD DRAW, 63458 CBC WITH AUTO DIFF * Follow Up: p rn * Images: Billing Information: * Visit Code: 87938 Office Visit, Est Pt., Level 3. * Procedure Codes: G2211 Complex e/[place]. [address] CAPILLARY BLOOD DRAW. 55032 CBC WITH AUTO DIFF. * Electronic signature of Alice Tuttle MD on 08/15/2025 at 09:41 AM EST Sign off status: Pending * Provider: Eliot Tuttle M.D. Date: 10/10/2023 Generated for Marci khalil/Octavia/Kellenitting on: 10/15/2024 09:41 AM EST History and Physical Notes * [...]
--- OUTSIDE RECORDS SUMMARY | 2024-08-22 05:30 | XMS_ITS ---
Author Organization [facility] Address 1210 [facility] 36 [facility] [address] [place] [phone] Care Team Providers Care Sign Manufacturer Name Role Phone Sandoval Tuttle Primary Care Provider [phone] REASON FOR VISIT ear ache ,dry cough Encounters Encounter Location Date Provider Diagnosis [facility] [address] [place] [id number] 08/22/2024 Sandoval Tuttle Plan Of Treatment Next Appt Details Provider Name:Sandoval Kern ry, 11/01/2025 11:00:00 AM, [address], [address], [place], [place], [phone], Progress Notes * Yuliana PIERCEeDOB: (64 yo F)Acc No.[id number]:08/22/2024 Progress Notes Patient: Mari HILARIO Provider: Eliot Tuttle M.D. :1960 A ge:63 Y S ex:Female Date:08/22/2024 [facility] Subjective: * Chief Complaints: * 1 . Ear ache ,dry cough. * Medical History: Objective: * Vitals: Assessment: Plan: * Treatment: * Images: Billing Information: * Visit Code: * Procedure Codes: * Electronic signature of Alice Tuttle MD on 08/15/2025 at 09:41 AM EST Sign off status: Pending * Provider: Eliot Tuttle M.D. Date: 10/22/2023 Generated for Marci khalil/Octavia/eTransmitting on: 10/15/2024 09:41 AM EST
--- OUTSIDE RECORDS SUMMARY | 2024-10-09 04:45 | XMS_ITS ---
Author Organization [facility] [address] [place] [id number] Care Team Providers Care Glued Wood Tester Name Role Phone Sandoval Tuttle Primary Care Provider [phone] Paulette Moreno Unavailable [phone] Allergies Allergen (clinical drug ingredient) Drug/Non Drug [...] DAILY; Duration: 90 days Active Vital Signs Blood pressure systolic 100 mm Hg 10/09/20 24 Blood pressure diastolic 60 mm Hg 024 Height 65 in 10/09/2024 Weight 180 lbs 10/09/2024 BMI 29.95 kg/m2 10/09/2024 Encounters Encounter Location Date Provider Diagnosis [facility] [facility] [address] [phone] 10/09/2024 Paulette Moreno URI (upper respirato ry [...] [address] , [place], [place], [id number], Progress Notes * Yuliana PIERCEeDOB: (64 yo F)Acc No.[id number]:10/09/2024 Progress Notes Patient: Mari HILARIO Provider: JEFF Hu :1960 A ge:63 Y S ex:Female Date:10/09/2024 Address:[address] [place], [place] [id number] Pcp:Sandoval Tuttle Subjective: * Chief Complaints: * [...] G 2211 Complex e/[place], [address] Flu Test- Nasal Swab, Modifiers: QW , 10110 COVID TEST IN HOUSE, Modifiers: QW , 3074F SYST BP LT 130 MM HG, 3078F DIAST BP < 80 MM HG * Follow Up: p rn * Images: Billing Information: * Visit Code: 82474 Office Visit, Est Pt., Level 3. * Procedure Codes: G2211 Complex e/[place]. [address] Flu Test- Nasal Swab. Modifiers: QW 33330 COVID TEST IN HOUSE. Modifiers: QW 3074F SYST BP LT 130 MM HG. 3078F DIAST BP < 80 MM HG. * Electronic signature of Lynn yunstephen Moreno APRN on 08/15/2025 at 09:41 AM EST Sign off status: Pending * Provider: JEFF Hu Date: Generated for Marci khalil/Octavia/eTransmitting on: 10/15/2024 09:41 AM EST History and [...]
--- OUTSIDE RECORDS SUMMARY | 2024-10-31 05:00 | XMS_ITS ---
[facility] [address] [facility] [address] [phone] Care Team Providers Care Pantry Worker Name Role Phone Sandoval Tuttle Primary Care [...] A DAY; Duration: 90 Active Vital Signs Blood pressure systolic 98 mm Hg 10/31/19 25 Blood pressure diastolic 54 mm Hg 025 Heart Rate 102 /min 10/31/2024 Height 65 in 10/31/2024 Weight 180 lbs 10/31/2024 BMI 29.95 kg/m2 10/31/2024 Encounters Encounter Location Date Provider Diagnosis [facility] [address] [phone] 10/31/2024 Sandoval Tuttle HTN (hypertension) I 10 [...] [place], 11/01/2025 11:00:00 AM, [address] [facility] [address], [place], [place], [phone], Progress Notes * Yuliana PIERCEeDOB: (64 yo F)Acc No.[id number]:10/31/2024 Progress Notes Patient: Mari HILARIO Provider: Eliot Tuttle M.D. :1960 A ge:63 Y S ex:Female Date:10/31/2024 Address:[address] [place], [place] [phone] Subjective: * Chief Complaints: * 1 . [...] * Images: Billing Information: * Visit Code: 23117 Office Visit, Est Pt., Level 4. * Procedure Codes: G2211 Complex e/m visit add on. * Electronic signature of Alice Tuttle MD on 08/15/2025 at 09:43 AM EST Sign off status: Pending * Provider: Eliot Tuttle M.D. Date: 0 10/31/2024 Generated for Marci khalil/Octavia/Holly on: 10/15/2024 09:43 AM EST History and Physical Notes * [...]
--- OUTSIDE RECORDS SUMMARY | 2025-05-01 06:30 | XMS_ITS ---
Author Organization [facility] Address 1210 [facility] [address] [place] [phone] Care Team Providers Care Circuit Walker Name Role Phone Sandoval Tuttle Primary Care Provider [phone] Allergies Allergen (clinical drug ingredient) Drug/Non Drug [...] Problem Body mass index 30+ - obesity (809638399) BMI 30.0-30.9,a dult (Z68.30) Active confirmed Vital Signs Blood pressure systolic 102 mm Hg 05/01/20 25 Blood pressure diastolic 60 mm Hg 025 Height 65 in 05/01/2025 Weight 181 lbs 05/01/2025 BMI 30.12 kg/m2 05/01/2025 Encounters Encounter Location Date Provider Diagnosis [facility] [address] [place] [id number] 05/01/2025 Sandoval Tuttle HTN (hypertension) I 10 [address], [place], [phone], Progress Notes * Papa PIERCEOB: 1 (64 yo F)Acc No.[id number]:05/01/2025 Progress Notes Patient: Mari HILARIO Provider: Eliot Tuttle M.D. :1960 A ge:64 Y S ex:Female Date:05/01/2025 Address:[address] [place] [address] Subjective: * Chief Complaints: * 1 . [...] whether persistent - J45.909 4 . B NC 30.0-30.9,adult - Z68.30 Plan: * Treatment: 2. B loating Notes: OTC probiotic recommended * Procedure Codes: G 2211 Complex e/m visit add on, 1036F TOBACCO NON-USER, G8950 PREHTN/HTN BP DOC INDCD F/U DOC, G8752 MOST RECENT SYSTOLIC BP < 140MM HG, G8754 MOST RECENT DIASTOLIC BP < 90MM HG * Follow Up: 6 Months * Images: Billing Information: * Visit Code: 55508 Office Visit, Est Pt., Level 3. * [...] 05/01/2025 Generated for Marci khalil/Octavia/Himanshusmitting on: 1 10/15/2024 09:42 AM EST History and Physical [...]
--- OUTSIDE RECORDS SUMMARY | 2025-06-14 06:30 | XMS_ITS ---
Author Organization [facility] Address [facility] [address] [place] [phone] Care Team Providers Care Assembly Machine Tool Setter Name Role Phone Sandoval Tuttle Primary Care [...] 06/14/2025 Encounters Encounter Location Date Provider Diagnosis [facility] 1210 [facility] 36 [facility] [address] [place], [place] [phone] 06/14/2025 Sandoval Tuttle Acute cough R 05.1 [...] Name:Sandoval Kern ry, 11/01/2025 11:00:00 AM, 1210 [facility] 36 [facility], [address], [place], [place], [phone], Progress Notes * Yuliana PIERCEeDOB: 1 (64 yo F)Acc No.[id number]:06/14/2025 Progress Notes Patient: Mari HILARIO Provider: Eliot Tuttle M.D. :1960 A ge:64 Y S ex:Female Date:06/14/2025 Address:[address] [place], [place] [phone] Subjective: * Chief Complaints: * 1 . [...] G 2211 Complex e/[place], [address] CBC WITH AUTO DIFF, 56391 VENIPUNCT, ROUTINE*, 1036F TOBACCO NON-USER, G8752 MOST RECENT SYSTOLIC BP < 140MM HG, G8754 MOST RECENT DIASTOLIC BP < 90MM HG, G8783 BP SCR PRFRM RCMDD DEFIND SCR INTVL * Follow Up: v ia phone to report progress * Images: Billing Information: * Visit Code: 77659 Office Visit, Est Pt., Level 3. * Procedure Codes: G2211 Complex e/[place]. [address] CBC WITH AUTO DIFF. 09536 VENIPUNCT, ROUTINE*. 1036F TOBACCO NON-USER. G8752 MOST RECENT SYSTOLIC BP < 140MM HG. G8754 MOST RECENT DIASTOLIC BP < 90MM HG. G8783 BP SCR PRFRM RCMDD DEFIND SCR INTVL. * Electronic signature of Alice Tuttle MD on 08/15/2025 at 09:41 AM EST Sign off status: Pending * Provider: Eliot Tuttle M.D. Date: 0 06/14/2025 Generated for Marci khalil/Octavia/eTkacysmitting on: 10/15/2024 09:41 AM EST History and [...]
--- OUTSIDE RECORDS SUMMARY | 2025-06-24 09:15 | XMS_ITS ---
Author Organization [facility] Address [facility] [address] [place] [id number] Care Team Providers Care Powered Bridge Specialist Name Role Phone Sandoval Tuttle Primary Care [...] 06/24/2025 Encounters Encounter Location Date Provider Diagnosis [facility] 1210 [facility] 36 [facility] [address] [place] [id number] 06/24/2025 Sandoval Tuttle Acute cough R 05.1 [...] 11/01/2025 11:00:00 AM, [address] [place] [address] [facility], [address], [place], [id number], Progress Notes * Papa PIERCEOB: 1 (64 yo F)Acc No.[id number]:06/24/2025 Progress Notes Patient: Mari HILARIO Provider: Eliot Tuttle M.D. :1960 A ge:64 Y S ex:Female Date:06/24/2025 [facility] [facility] Subjective: * Chief Complaints: * 1 . [...] G 2211 Complex e/[place], [address] CBC WITH AUTO DIFF, 53767 VENIPUNCT, ROUTINE*, 1036F TOBACCO NON-USER, G8783 BP SCR PRFRM RCMDD DEFIND SCR INTVL, G8752 MOST RECENT SYSTOLIC BP < 140MM HG, G8754 MOST RECENT DIASTOLIC BP < 90MM HG, 3074F SYST BP LT 130 MM HG, 3078F DIAST BP < 80 MM HG * Follow Up: v ia phone to report progress * Images: Billing Information: * Visit Code: 83328 Office Visit, Est Pt., Level 3. * Procedure Codes: G2211 Complex e/[place]. [address] CBC WITH AUTO DIFF. 79191 VENIPUNCT, ROUTINE*. 1036F TOBACCO NON-USER. G8783 BP [...] 06/24/2025 Generated for Marci khalil/Octavia/eTkacysmitting on: 1 10/15/2024 09:42 AM EST History [...]
--- OUTSIDE RECORDS SUMMARY | 2025-08-14 02:25 | XMS_ITS | Continuity of Care Document ---
Author Organization [facility] Phone Care Team Providers Care Slurry Worker Name Role Phone LION GARCÍA Admitting LONNIE SOLANO Primary Care LION GARCÍA Primary Attending LION GARCÍA Unavailable ALLERGIES AND ADVERSE REACTIONS ALLERGIES AND ADVERSE REACTIONS Code System Allergy Substance Adverse Reaction Date Reaction (Severity) Comment Status Reported By Updated By 7990 RXNorm PENICILLIN Rash active Patient [id number] on November 16, 2022 6:49:56 PM [facility] FAMILY HISTORY RELATION: Father Status: LIVING SNOMED-CT Diagnosis Age At Onset Information not available RELATION: Mother Status: Cause of : Unknown Age at : Unknown SNOMED-CT Diagnosis Age At Onset [id number] Malignant tumor of breast RESULTS Patient: KARI Flowers Date of : December 18 9 LABORATORY RESULTS Information is not available LABORATORY NARRATIVE RESULTS Information is not available RADIOLOGY RESULTS ORDER 100: MRI LWR EXT NON-J T W/O LT (LOINC: 14384-6) ORDER DATE: August 12, 2025 9:37:00 PM [facility] PERFORMING LAB: [address] [id number] Final Result Date: August 12, 2025 11:17:[address] [address] Name: ULISSES PIERCE Exam Date: 08/12/2025 : 1960 Age 64 years Gender: F Physician: LION GARCÍA Facility: [facility] Facility HSV: Outpatient Exam: MRI LWR EXT NON-JT W/O LT MR LOWER EXTREMITY WITHOUT IV CONTRAST LEFT 08/12/2025 4:37 PM ACCOUNTING RECONCILIATION CLERK COMPARISON: None TECHNIQUE: MRI of the left lower leg was performed without IV contrast. FINDINGS: Abnormal marrow signal with increased T2 and decreased T1 signal centrally distal fibular diaphysis no osseous destructive change demonstrated. Cortical defect is not identified. There is surrounding soft tissue edema signal surrounding this portion of the distal fibula involving musculature and subcutaneous soft tissues. No organized fluid collection identified. IMPRESSION: Focal marrow edema distal fibular diaphysis with extensive surrounding soft tissue edema differential favors osteomyelitis and surrounding myositis without abscess at this time. Electronically signed by: Andie Jensen MD 08/12/2025 06:17 PM [facility] Dictated By: Andie Jensen Transcribed By: Transcribed On: 08/12/2025 6:17 PM Electronically signed by: Andie Jensen 08/12/2025 Thank you for referring ULISSES PIERCE to [facility]. Legally authenticated by JEFFREY ABARCA 2025-08-12 18:17:24 PATHOLOGY NARRATIVE RESULTS Information is not available MICROBIOLOGY RESULTS No Micro Labs/Results Exist for Patient BLOOD ADMIN RESULTS Information is not available MEDICATIONS HOME MEDICATIONS Status RXNORM NDC Medication Dose Route Frequency Dates Comments Reported By Updated By Drug Treatment Unknown DISCHARGE MEDICATIONS Status RXNORM NDC Medication Dose Route Frequency Dates Dis pense Data Comments Physician Updated By No Discharge Medication Info rmation Available INPATIENT MEDICATIONS Status RXNORM NDC Medication Dose Route Frequency Rat e Quantity Dates Indication Dispense Data Comments Physician Updated By No Inpatient Medication Info rmation Available SOCIAL HISTORY SOCIAL HISTORY - Smoking Status SNOMED-CT Social History Element Description Effective Dates Offered Cessation Comment Updated By [id number] Historical Tobacco smoking status Never Smoked [id number] on November 16, 2022 6:49:33 PM [facility] SOCIAL HISTORY - Gender Sex: Female SOCIAL HISTORY - Status : status i nformation is not available Intention in Next Year: intention information is not available SOCIAL HISTORY - Assessments Code System Description Status Date Value of Assessment Updated By Comment Assessment Information is no t available SOCIAL HISTORY - [place] Affiliation [place] information is not av ailable SOCIAL HISTORY - Legal Sex Legal Sex information is not available SOCIAL HISTORY - Sexual Behavior Sexual Orientation Gender Identity SNOMED-CT Description SNO MED -CT Description Activity Level No of Partners Partner Type UpdatedBy Information is not available SOCIAL HISTORY - Occupation Occupation information is no t available HEALTH CONCERNS Problems Concern Status Health Concern problem infor mation not available. Smoking Status Status Years Used Consumed packs p er day Health Concern smoking histo ry information not available. Family History Concern Status Health Concern family histor y information not available. ENCOUNTERS ENCOUNTER INFORMATION Reason for Visit MRI TIB/FIB Admission August 12, 2025 9:25:00 PM [place] [id number] [facility] [phone] Discharge August 12, 2025 9:25:00 PM [facility] DISCHARGED TO HOME OR SELF CARE ENCOUNTER DIAGNOSES Notes information is not meenu ilable. Code System Diagnosis Onset Date Diagnosis information is not available. ABSTRACT DIAGNOSES Code System Diagnosis Updated By Abatement Date M79.662 ICD10 PAIN IN LEFT LOWER LEG [id number] on August 14, 2025 4:36:21 AM [facility] R93.6 ICD10 ABNORMAL FINDING S ON DIAGNOSTIC IMAGING OF LIMBS [id number] on August 14, 2025 4:36:21 AM [facility] CARE TEAM Care Slurry Worker Role LION GARCÍA Admitting LONNIE SOLANO Primary Care LION GARCÍA Primary Attending LION GARCÍA Referring CARE TEAM CARE tiler's assistant Role on Team Location Telecom Status Start Date End Mehdi e Updated By RICKY GOLD Referring normal August 12, 2025 5:00:00 AM [facility] August 12, 2025 9:25:00 PM [facility] [id number] on August 12, 2025 9:28:28 PM [facility] XIOMARA FLEMING PCP normal August 09, 2025 5:31:12 PM [facility] August 12, 2025 9:25:00 PM [facility] [id number] on August 12, 2025 9:28:28 PM [facility] RICKY GOLD Attending normal August 09, 2025 5:31:12 PM [facility] August 12, 2025 9:25:00 PM [facility] [id number] on August 12, 2025 9:28:28 PM [facility] RICKY GOLD Admitting normal August 09, 2025 5:31:12 PM [facility] August 12, 2025 9:25:00 PM [facility] [id number] on August 12, 2025 9:28:28 PM [facility]
--- NOTE | 2025-08-15 09:39 | CT_ITS ---
FINAL REPORT TECHNIQUE: Thin section axial images were obtained through the left lower leg without contrast. Reconstruction images were obtained from the axial data. Exam was performed using dose reduction technique. CLINICAL HISTORY: PAIN COMPARISON: None FINDINGS: Changes from left knee arthroplasty. The hardware appears intact. No evidence of hardware complication. There is severe osteopenia. There is no acute fracture. There is old fracture deformity of the lateral malleolus. Degenerative disease is noted of the ankle. There is a joint effusion at the knee. Remaining soft tissues are without acute abnormality. IMPRESSION: No acute fracture of the tibia or fibula. Changes from knee arthroplasty. Severe osteopenia and degenerative disease. Reviewed, Interpreted and Dictated by Keri Schofield MD Transcribed by Rabia Briggs Authenticated and [facility]
--- OUTSIDE RECORDS SUMMARY | 2025-08-15 09:41 | XMS_ITS | Clinical Summary ---
Author Organization [facility] Address [address] [place] [address] Care Team Providers Care Bioinformatics Assistant Name Role Phone Unavailable Primary Care Provider [...] 03/18/2013 03/18/2008, 02/07, 02/05/2005, Additional history exists [id number] Vaccine (2024- season) 2025 06/08/2021, 01/09/2021, 12/12/2020 [...] Narrative SUNQUEST - 03/21/2008 3:01 PM EDT [facility] MR #: [id number] [facility] [place] [address] 1960 (Age: 47) FU Collect Date: 03/18/2008 00:00 Receipt Date: 03/19/2008 10:07 Page 1 DEPARTMENT OF PATHOLOGY AND LABORATORY MEDICINE CYTOPATHOLOGY REPORT Email: [email or web address] [phone] ATTENDING MD/Practitioner: Emma Ochoa MD Service: [facility] Location: [facility] Reported: 03/21/2008 15:01 Collected: 03/18/2008 00:00 INTERPRETATION A. THIN PREP (CERVICAL/VAGINAL): NEGATIVE FOR INTRAEPITHELIAL LESION OR MALIGNANCY. SATISFACTORY FOR EVALUATION; TRANSFORMATION ZONE COMPONENT CANNOT BE DEFINITIVELY IDENTIFIED DUE TO THE PRESENCE OF ATROPHY OR OTHER HORMONAL CHANGES. Slide scanned and imaged by [employer] ThinPrep Imaging System with manual review of [...] results is suggested (please call Microbiology at [phone] for results). CLINICAL INFORMATION: Menstrual History: Postmenopausal Date of Last Menstrual Period: {Not Provided} Other Clinical Conditions: If ASCUS and > 24 years of age, HPV/DNA testing requested. SPECIMEN DESCRIPTION: A: THIN PREP (CERVICAL/VAGINAL) THIN PREP PROCESS CELLULAR ENHANCEMENT ICD: V76.2 CERVIX, SPECIAL SCREENING FOR MALIGNANT NEOPLASM F: A; RT IMAGE [id number] SNOMED CODES: A; [id number] In cases where a pathologist has signed out the report, the service has been rendered in part by a resident. The signing pathologist has performed and is responsible for the reported pathologic evaluation. us Historical Provider LAB PATHOLOGY ORDERABLES Fin al Result [email or web address] from Last 3 Months or Most Recently Relevant to Health Maintenance
--- OUTSIDE RECORDS SUMMARY | 2025-08-15 09:41 | XMS_ITS | Clinical Summary ---
[facility] Organization [facility] Address [address] [place] [address] Care Team Providers Care Drafter Cartographic Name Role Phone Sandoval Tuttle MD Primary Care Provider [phone] Social History Tobacco Use Types Packs/Day Years [...] 07/10/2018 HEPATITIS C SCREENING Completed 05/14/2020 Insurance [facility] MEDICARE ADVANTAGE Care Teams Drafter Cartographic Relationship Specialty Start Date End Date Sandoval Tuttle MD [address] [facility] [address] [place] [address] PCP - General Family Medicine 01/06/23
--- OUTSIDE RECORDS SUMMARY | 2025-08-15 09:42 | XMS_ITS | Patient Health Record ---
[facility] Address [address] [facility] [address] [place] [id number] Care Team Providers Care Ice Cream Vendor Name Role Phone Sandoval Tuttle Primary Care Provider [phone] Paulette Moreno Unavailable [phone] Allergies Allergen (clinical drug ingredient) Drug/Non Drug [...] 100 - 400 H-Sed Rate Reviewed date:11/12/2024 12:27:21 PM Interpretation: [...] Performing Lab: Notes/Report: TSH 1.88 0.465-4.68 uIU/mL H-TSH Reviewed date:11/12/2024 12:22:52 PM Interpretation: Performing [...] MG TAKE 1 TABLET TWICE DAILY; Duration: 90 Active Omeprazole 40 MG TAKE 1 CAPSULE 1/2 T O 1 HOUR BEFORE MORNING MEAL ONCE A DAY; Duration: 90 Active Metoclopramide HCl 10 MG TAKE 1 [...] Vaccine Route Administration Date Status Comme nts nQhkozfm-aluxpwrab-kw dicare pts. IM Intramuscular 08/11/2011 Administered eKartuji-vegtqakgj-ww dicare pts. IM Intramuscular 07/21/2012 Administered xFluzone [...] Status Risk Notes Problem Gastroesophageal reflux disease (823069930) GERD (gastroesophageal reflux disease) (K21.9) Active confirmed Problem Essential hypertension (39349331) Essential (primary) hypertension (I10) Active confirmed Problem Hypertension (31519922) HTN (hypertension) (I10) Active confirmed Problem Hyperlipidemia (50395069) Hyperlipidemia (E78.5) Active confirmed Problem Anxiety (20568101) Anxiety (F41.9) Active confi rmed Problem Body mass index 30+ - obesity (596195067) BMI 30.0-30.9,adult (Z68.30) Active confirmed Problem Sciatica (94549294) Lumbago with sciatica, right side (M54.41) Active confirmed Problem Primary insomnia (5956613) Primary insomnia (F51.01) Active confirmed Problem Sciatica (48460547) Lumbago with sciatica, left side (M54.42) Active confirmed Problem Constipation (28316336) Constipation, unspecified constipation type (K59.00) Active confirmed Problem Flatulence, eructation and gas pain (564859620) Bloating (R14.0) Active confirmed Problem Allergic rhinitis (84248126) Allergic rhinitis, unspecified allergic rhinitis type (J30.9) Active confirmed Problem Mild intermittent asthma (179803586) Mild intermittent asthma without complication (J45.20) Active confirmed Problem Leukocytosis (962900211) Leukocytosis, unspecified type (D72.829) Active confirmed Problem Rheumatoid arthritis (87668544) Rheumatoid arthritis involving multiple sites, unspecified rheumatoid factor presence (M06.9) Active confirmed Problem Hyperlipidaemia (78842021) Hyperlipidemia, unspecified hyperlipidemia type (E78.5) Active confirmed Problem Chronic gouty arthritis (81857928) Chronic gout without tophus, unspecified cause, unspecified site (M1A.9XX0) Active confirmed Problem Bursitis of left shoulder (776926519781958) Bursitis of left deltoid (M75.52) Active confirmed Problem Asthma without status asthmaticus (41306255) Asthma, unspecified asthma severity, unspecified whether complicated, unspecified whether persistent (J45.909) Active confirmed Problem Scleroderma (299828199) Scleroderma (M34.9) Active confirmed Problem Rheumatoid arthritis (40220979) Rheumatoid arthritis, involving unspecified site, unspecified whether rheumatoid factor present (M06.9) Active confirmed Vital Signs Heart Rate 102 /min 10/31/2024 Blood pressure diastolic 68 mm Hg 06/24/2025 Height 65 in 06/24/2025 Blood pressure systolic 110 mm Hg 06/24/2025 Weight 180.6 lbs 06/14/2025 BMI 30.05 kg/m2 06/14/2025 Encounters Encounter Location Date Provider Diagnosis [facility] [address] [facility] [address] [place], [place] [id number] 10/09/2024 Paulettemarissa Moreno URI (upper respirato ry infection) J06.9 [facility] [address] [facility] [address] [place], [place] [id number] 10/31/2024 Sandoval Bristow HTN (hypertension) I 10 ; Hyperlipidemia E78.5 ; Night sweats R61 and GERD (gastroesophageal reflux disease) K21.9 [facility] [address] [facility] [address] [place], [place] [id number] 05/01/2025 Sandoval Bristow HTN (hypertension) I 10 ; Bloating R14.0 ; Asthma, unspecified asthma severity, unspecified whether complicated, unspecified whether persistent J45.909 and BMI 30.0-30.9,adult Z68.30 [facility] [address] [place], [place] [id number] 06/14/2025 Sandoval Bristow Acute cough R05.1 [facility] [address] [place], [place] [id number] 06/24/2025 Sandoval Bristow Acute cough R05.1 [facility] [address] [place], [place] [id number] 11/12/2024 Sandoval Bristow [facility] [address] [place], [place] [id number] 01/16/2025 Sandoval Bristow HTN (hypertension) I 10 and Asthma, unspecified asthma severity, unspecified whether complicated, unspecified whether persistent J45.909 [facility] [address] [facility] [address] [place] [id number] 05/07/2025 Sandoval Parag Screening for breast cancer Z12.39 [facility] [address] [facility] [address] [facility] [address] [place] [id number] 05/20/2025 Sandoval Tuttle Assessments Encounter Date Diagnosis (ICD Code) Assessment [...] R05.1) 06/24/2025 Acute cough (ICD-10 - R05.1) 10/09/2024 URI [...] 11/01/2025 11:00:00 AM, [address] [facility], [address], [place], [place], [id number], Insurance Providers Payer Name Payer Address Payer Phone Subscriber Number Group Number Insured Name Patient Relationship to Insured Coverage Start Date Coverage End Date [employer] (MEDICAR E) [address] [address] [place] [address] [phone] [id number] Mari Clark Self - patient is the insured Medical (General) History Medical History History ICD Code Hypertension Hyperlipidemia Osteoporosis Rheumatoid arthritis, followed by Oral brown Scleroderma Esophageal reflux Post op anemia 01/18, [...]
--- OUTSIDE RECORDS SUMMARY | 2025-08-15 09:43 | XMS_ITS | Referral Summary ---
Author Organization [employer] ([place], [place], [place], [place], [place]) Address [address] [place] [address] Care Team Providers Care First Responder Name Role Phone Sandoval Tuttle MD Primary Care Provider + [phone] Allergies Active Allergy Reactions Criticality Noted Date [...] mg total) by mouth daily. Active pancrelipase, Jdb-Cbcd-Uvlm, (Creon) 36,000-114,000- 180,000 unit cpDR capsule Take [...] Date Moreno rded Speak language other than Bulgarian at home Not on file 06/08/2024 Want [...] on file Medical Devices Implanted Type Area Portable Sawmill Operator Device Identifier Shelf Expiration Date Model / Serial / Lot Wire C Trcr 0.827nlv3.14mm Ss [id number] - [id number] Implanted:Qty: 4 on 11/14/2024 by Osvaldo Sorensen MD at [facility] IMPLANTS Right: Hand [employer]MED:[employer] 08/07/2029 [id number] / / [id number] Wire C Trcr 0.032kqd1.14mm Ss [id number] - [id number] Implanted:Qty: 4 on 11/14/2024 by Osvaldo Sorensen MD at [facility] IMPLANTS Right: Hand [employer]MED:[employer] 11/07/2028 [id number] / / [id number] Insurance [facility] MEDICARE HMO Advance Directives For more information, please contact: [phone] * Full Code (Latest Code Status on File) Date Activated Date Inactivated Comments 11/14/2024 9:15 AM 11/14/2024 4:25 PM Care Teams First Responder Relationship Specialty Start Date End Date Sandoval Tuttle MD [address] [place] [facility] [address] [place] [address] PCP - General Family Medicine 11/14/24
--- OUTSIDE RECORDS SUMMARY | 2025-08-15 09:43 | XMS_ITS | Clinical Summary ---
Author Organization [employer] ([place], [place], [place], [place], [place]) Address [address] [place] [address] Care Team Providers Care Orthopaedic Surgeon Name Role Phone Sandoval Tuttle MD Primary Care Provider + [phone] Allergies Active Allergy Reactions Criticality Noted Date [...] mg total) by mouth daily. Active pancrelipase, Awp-Agwu-Nywq, (Creon) 36,000-114,000- 180,000 unit cpDR capsule Take [...] Lynched Mother Amie Browne Paternal Grandmother Katina Sarabianicanor Social History Tobacco Use Types Packs/Day Years [...] Date Moreno rded Speak language other than Moldovan at home Not on file 06/08/2024 Want [...] 11/05/2025 11/05/2024 Medical Devices Implanted Type Area Industrial Accountant Device Identifier Shelf Expiration Date Model / Serial / Lot Wire C Trcr 0.959vig4.14mm Ss [id number] - [id number] Implanted:Qty: 4 on 11/14/2024 by Osvaldo Sorensen MD at [facility] IMPLANTS Right: Hand [employer]MED:[employer] 08/07/2029 [id number] / / [id number] Wire C Trcr 0.910pmv4.14mm Ss [id number] - [id number] Implanted:Qty: 4 on 11/14/2024 by Osvaldo Sorensen MD at [facility] IMPLANTS Right: Hand [employer] 11/07/2028 [id number] / / [id number] Insurance [employer] MEDICARE HMO Advance Directives For more information, please contact: [phone] * Full Code (Latest Code Status on File) Date Activated Date Inactivated Comments 11/14/2024 9:15 AM 11/14/2024 4:25 PM Care Teams Orthopaedic Surgeon Relationship Specialty Start Date End Date Sandoval Tuttle MD [address] [facility] [address] [place] [address] PCP - General Family Medicine 11/14/24
--- OUTSIDE RECORDS SUMMARY | 2025-08-15 09:43 | XMS_ITS | Data Portability ---
Author Organization [place] [facility] [place] [facility] Address [address] [place] [address] Care Team Providers Care Braille Operator Name Role Phone LONNIE SOLANO Primary Care [...] aminotrans ferase), serum or plasma 2019 020 [facility] (Lab), [address], [place], [address], 0 15:33:22 AST/SGOT (aspartate aminotrans ferase), serum or plasma 2019 020 [facility] (Lab), [address], [place], [address], 0 15:33:09 CBC w/ auto diff 2019 020 [facility] (Lab), [address], [place], [address], 0 15:34:33 creatinine , serum or plasma 2019 020 [facility] (Lab), [address], [place], [address], 0 15:32:57 ESR (erythrocy te sedimentat ion rate), blood 2019 020 [facility] (Lab), [address], [place], [address], 0 15:34:22 ALT (alanine aminotrans ferase), serum or plasma [address] (Lab), [address], [place], [address], 9 10:37:56 AST/SGOT (aspartate aminotrans ferase), serum or plasma [address] (Lab), [address], [place], [address], 9 10:37:56 CBC w/ auto diff [address] (Lab), [address], [place], [address], 9 10:37:56 creatinine , serum or plasma [address] (Lab), [address], [place], [place], [address], 9 10:37:56 ESR (erythrocy te sedimentat ion rate), blood 2018 019 [email or web address] [facility] (Lab), [address], [place], [address], 9 10:37:57 CBC w/ auto diff [address] (Lab), [address], [place], [place], [address], 8 08:10:55 ALT (alanine aminotrans ferase), serum or plasma [address] (Lab), [address], [place], [address], 8 08:10:55 AST/SGOT (aspartate aminotrans ferase), serum or plasma [address] (Lab), [address], [place], [address], 8 08:10:55 CBC w/ auto diff [address] (Lab), [address], [place], [place], [address], 8 08:10:55 creatinine , serum or plasma [address] (Lab), [address], [place], [address], 8 08:10:55 ESR (erythrocy te sedimentat ion rate), blood [address] (Lab), [address], [place], [address], 8 08:10:55 CBC w/ auto diff 2017 018 [email or web address] [facility] (Lab), [address], [place], [address], 8 11:10:12 ALT (alanine aminotrans ferase), serum or plasma [address] (Lab), [address], [place], [address], 8 07:27:32 AST/SGOT (aspartate aminotrans ferase), serum or plasma [address] (Lab), [address], [place], [address], 8 07:27:33 CBC w/ auto diff [address] (Lab), [address], [place], [address], 8 07:27:33 creatinine , serum or plasma [address] (Lab), [address], [place], [address], 8 07:27:33 ESR (erythrocy te sedimentat ion rate), blood [address] (Lab), [address], [place], [address], 8 07:27:33 Referral hand therapy referral [address] [facility], [address], [address], [place], [address], 8 09:52:32 Procedures None recorded. Surgeries None recorded. Imaging DEXA 2019 020 [facility] (X-Ray), [address], [place], [address], 0 13:46:38 Medication Orders prednisone 5 mg tablet 2019 020 [facility], [address] [facility] [place], [address], 0 15:11:20 methotrexa te sodium 2.5 mg tablet 2019 020 INTERFACE [facility], [address] [facility] [place], [address], 0 15:11:20 prednisone 5 mg tablet 2018 019 INTERFACE [facility], [address] [place] [address], [facility] [address], [id number], 9 16:03:05 methotrexa te sodium 2.5 mg tablet 2017 018 smoberly [facility], [address], [address], [place], [place], [id number], 8 14:23:28 prednisone 5 mg tablet 2017 018 smoberly [facility], [address], [address], [place], [id number], 8 14:23:28 Prolia 60 mg/mL subcutaneo us syringe 2017 018 [email or web address] [facility], [address] [facility] [place], [address], 9 15:45:53 methotrexa te sodium 2.5 mg tablet 2017 018 INTERFACE [facility], [address], [place] [address], [id number], 8 13:57:15 prednisone 5 mg tablet 2017 018 INTERFACE [facility], [address], [facility] [address], [place], [place], [id number], 8 13:57:15 Patient TargetsNo targets recorded. Patient Instructions Encounter Date Encounter Id Patient Instructions Last Modified By Organization Details Last Modified Time 02/13/2018 [id number] eating healthy foods: care instructions smoberly Not available 02/13/2018 13:57:13 scleroderma: car e instructions smoberly Not available 02/13/2018 13:57:13 05/16/2018 [id number] osteoporosis: care instructions smoberly Not available 05/16/2018 18:39:01 08/08/2018 [id number] eating healthy foods: care instructions smoberly Not available 08/08/2018 14:23:28 scleroderma: car e instructions smoberly Not available 08/08/2018 14:23:28 03/21/2019 [id number] eating healthy foods: care instructions smoberly Not available 03/21/2019 16:03:04 scleroderma: car e instructions smoberly Not available 03/21/2019 16:03:04 10/30/2019 [id number] osteoporosis: care instructions smoberly Not available 10/30/2019 [...] 11/13/2019 DEXA No observ ation record ed. [facility] [address] [facility] [address] [facility], [place], [id number], 11/14/2019 18:20:29 Result Notes None recorded. Problems Name Problem SNOMED Code Status Onset Date Resolution Date Notes Provider Name and Address Organization Details Recorded Time Systemic sclerosis 59690715 Active 2014 From Automated Load;Provi evonne: Schmid, Orin;Stat us: Active Not Available [facility] 6 05:17:28 Seronegat apryl rheumatoi d arthritis 801400312 Active 2014 From Automated Load;Provi evonne: Schmid, Orin;Stat us: Active Not Available [facility] 6 05:17:28 Osteoporo sis 73785489 Active 2015 From Automated Load;Provi evonne: [place], Sima;St atus: Active Not Available [facility] 6 05:17:28 Problem Notes None recorded. Medical Equipment None Reported. Allergies Allergen ID Allergen Name Allergen Category Reaction Reaction Severity Criticality Documentation Date Start Date Code Code System Note Provider Name and Address Organization Details Recorded Time 688995 Product containin g penicilli n (product) medicatio n Not available Not available Not available 09/03/20162010 78344 8001 SNOMED Comme nt: Creat ed By: Romeo sánchezCre ated Date: 2010 9:28: 34 AM; Not Available [facility] 6 04:19:29 Medications Name Sig Start Date [...] /min 101 /min 91/64 mm[Hg] Marisol Castellon [facility] 10/30/2019 14:55:10 Date Recorded Body height Body mass index (BMI) Body weight Respiratory rate Heart rate Systolic And Diastolic Provider Name and Address Organization Details Last Updated DateTime 8 165.1 cm 27.8 kg/m2 25906.9 3 g 16 /min 107 /min 111/71 mm[Hg] January Patito [facility] 8 13:42:34 Date Recorded Body height Body mass index (BMI) Body weight Respiratory rate Heart rate Systolic And Diastolic Provider Name and Address Organization Details Last Updated DateTime 9 165.1 cm 30.5 kg/m2 95862.4 g 18 /min 94 /min 98/76 mm[Hg] Carlita Guevara [facility] 9 15:44:22 Date Recorded Body height Body mass index (BMI) Body weight Respiratory rate Heart rate Systolic And Diastolic Provider Name and Address Organization Details Last Updated DateTime 8 165.1 cm 27.8 kg/m2 38423.9 3 g 18 /min 59 /min 116/77 mm[Hg] Nevaeh Andrews [facility] 8 14:00:50 Social History Question Answer Notes LastModified by [email or web address] Details LastModified Time Tobacco Smoking Status Never Smoker Tresa Kelley [facility] 02/10/2017 14:31:18 How Much Tobacco Do You Chew? None [email or web address] Information not available 03/21/2019 What Was The Date Of Your Most Recent Tobacco Screening? 03/21/2019 Information n ot available 11/27/2019 How Much Tobacco Do You Smoke? No [email or web address] Information not available 03/21/2019 How Many Years Have You Smoked Tobacco? 0 [email or web address] Information not available 03/21/2019 Sex: Unknown Functional Status Question Answer Note LastModified by [email or web address] Details LastModified Time What is your level of alcohol consumption? None [email or web address] Information not available 02/10/2017 Do you or have you ever used smokeless tobacco? Never used smokeless tobacco [email or web address] Information not available 10/30/2019 Do you or have you ever used e-cigarettes or vape? Never used electronic cigarettes Information not available 10/30/2019 Mental Status None recorded. Family History Nothing Reported Notes:Maternal grandmother h ad severe RA Medical History Condition Response Emphysema N COPD N Arthritis Y Acid Reflux (GERD) Y Rheumatoid Arthritis Y Diabetes N Bleeding Disorder N Asthma Y Heart Disease N Hypertension Y Gynecological HistoryNo gynecological history recorded. Obstetrics History GPAL:G 0 P 0 0 0 0 Immunizations Vaccine Type Date Status Note Provider Nam e and Address Organization Details Recorded Time Influenza, split virus, quadrivalent, preservative 8 completed [place] Guevara [facility] 03/21/2019 15:46:12 Past Encounters Encounter ID Performer Location Encounter Start Date Encounter Closed Date Diagnosis/Indication Diagnosis SNOMED-CT Code Diagnosis ICD10 Code Diagnosis IMO Codes Diagnosis Note [id number] SIMA MARTINEZ APRN [facility] [place] [address] [place] [address] 1 Osteoporosis 73689788 M81.0 [facility] [address]87[address]948- 11 injected one 60mg/1mL syringe [id number] SIM[place] [address] [place] [address] 1 02/10/2017 13:28:02 02/10/2017 15:20:18 Osteoporosis 63819693 M81.0 needs clearance labs todaynext injection due april 24, 2017 or laterlabs today Nausea 454741423 R11.0 recurring; will have her f/u with pcp Seronegati ve rheumatoid arthritis 253189217 M06.00 functional skills tutor medication therapynor mal systemic examWithou t synovitis or dactylitis [id number] SIMA MARTINEZ APRN [place] [address] 1 04/28/2017 13:37:05 04/28/2017 14:33:24 Osteoporosis 55265115 M81.0 needs clearance labs todaynext injection due april 24, 2017 or laterlabs today [id number] SIMA MARTINEZ APRN [place] [address] 1 08/16/2017 13:19:55 08/22/2017 08:27:15 Osteoporosis 59520257 M81.0 needs clearance labs todaynext injection due october 29, 2017needs bone density --requests for it to be done close to homelabs today Nausea 356160200 R11.0 recurring; will have her f/u with pcp Seronegati ve rheumatoid arthritis 897312062 M06.00 jail medication therapysta ble systemic exam Without major synovitis or dactylitis stiff and limited with bony deformity from RA and OA 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 n 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 methotrexate user [id number] Z79.899 Postmenopa usal osteoporosis 716195380 M81.0 [id number] [place] [address] [place] [address] 1 11/08/2017 13:18:59 11/09/2017 08:59:29 Osteoporosis 54443046 M81.0 needs clearance labs todaynext injection due october 29, 2017needs bone density --requests for it to be done close to homelabs today [id number] [place] [address] [place] [address] 1 02/13/2018 13:21:56 02/13/2018 14:05:56 Systemic sclerosis 73623345 M34.9 Seronegati ve rheumatoid arthritis 253030287 M06.00 functional skills tutor medication therapysta ble systemic exam Without major synovitis or dactylitis stiff and limited with bony deformity from RA and OA combinatio n group home methotrexate user 7433115787 Z79.899 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 elevated wbc count at 16.5 will obtain further assessment [id number] SIMA MARTINEZ APRN RHEUMATOL [place] [address] [place] [address] 1 05/16/2018 12:47:45 05/16/2018 13:29:04 Osteoporosis 83614941 M81.0 needs clearance labs todaynext injection due october 29, 2017needs bone density --requests for it to be done close to homelabs today [id number] SIMA MARTINEZ APRN [place] [address] 1 08/08/2018 13:29:44 08/09/2018 07:56:56 Seronegative rheumatoid arthritis 833782232 M06.00 f/u on RA with chronic jail medication therapyWit hout major synovitis or dactylitis todayconti nues with crippling and bony deformity from RA, systemic sclerosis and OA combinatio ncontinue with mtx and prn prednisone take 5 po once weekly, Systemic sclerosis 47571 008 M34.9 overlap syndrome treated as Ra group home methotrexate user 5238039115 Z79.899 labs reviewed will obtain labs prior to next visit f/u 6 months or sooner White bloo d cell disorder 67600096 D72.9 elevated wbc count at 13.5 from 16.5 will obtain further assessment today all other labs reviewed [id number] SIMA MARTINEZ APRN RHEUMATOL [facility] [address] [place] [address] 03/21/2019 15:07:26 03/23/2019 13:21:44 Seronegative rheumatoid arthritis 299224699 M06.00 f/u on RA with chronic functional skills tutor medication therapyWit hout major synovitis or dactylitis todayconti nues with crippling and bony deformity from RA, systemic sclerosis and OA combinatio ncontinue with mtx and prn prednisone take 5 po once weekly, Systemic sclerosis 30901 008 M34.9 overlap syndrome treated as Ra 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 methotrexate user [id number] 00 Z79.899 labs reviewed will obtain labs prior to next visit f/u 6 months or sooner [id number] SIMA MARTINEZ APRN RHEUMATOL [address] [address] 10/30/2019 14:15:11 10/30/2019 15:19:58 Seronegative rheumatoid arthritis 181982401 M06.00 f/u on RA with chronic jail medication therapyWit hout major synovitis or dactylitis todayconti nues with crippling and bony deformity from RA, systemic sclerosis and OA combinatio ncontinue with mtx and prn prednisone take 5 po once weekly, Systemic sclerosis 39685 008 M34.9 overlap syndrome treated as Ra 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 methotrexate user [id number] 00 Z79.899 labs reviewed will obtain labs prior to next visit f/u 6 months or sooner Osteoporosis 92881291 M8 1.0 needs clearance labs todaynext injection [...] ID Nieves Member ID Guarantor Name 10/30/[address] [place] [address] [id number] David Clark [id number] Mari Clark 04/28/2020 1 [place] Mari Clark [id number] Mari Clark 04/28/2020 2 [place] [id number] David Clark Jr [id number] Mari Clark 10/09/2017 PAYMENT PLAN Mari [...] are negative SIMA MARTINEZ APRN [address] [place], [address], [facility] 02/13/2018 14:09:06 08/08/2018 text/html ROS as noted [...] are negative SIMA MARTINEZ APRN [address] [place], [address], [facility] 08/08/2018 14:26:23 03/21/2019 text/html ROS as noted [...] are negative SIMA MARTINEZ APRN [address] [place], [address], [facility] 03/21/2019 16:07:16 10/30/2019 text/html ROS as noted [...] due to the ramp here at the [facility] but she is walking around 5000 steps daily; she is losing weight with weight watchers; she currently denies bowel or bladder changes, chest pain, soa, rashes, fevers and all others are negative SIMA MARTINEZ APRN [address] [place], [address], [facility] 10/30/2019 15:15:32 OBGyn Episode No OBEpisode recorded.
--- OUTSIDE RECORDS SUMMARY | 2025-08-15 09:43 | XMS_ITS | Clinical Summary ---
Author Organization [facility] [place] Address [address] [place] [address] Phone Care Team Providers Care Slitting Machine Operator Helper Name Role Phone Unavailable Primary Care Provider [...] RSV or 60+ (1 - Ris k 50-74 years 1-dose series) 2010 Influenza Vaccine (#1) 2025 07/10/2018 Hepatitis C [...] ve 05/14/2020 2:15 PM EDT PREFERRED LAB In Flow Blood VENOUS BLOOD / Unknown Venipuncture / Unknown 05/14/2020 12:52 PM EDT 05/14/2020 12:52 PM EDT us Dagmar Lundberg MD HEMATOLOGY ORDERABLES Final Result PREFERRED LAB In Flow [address] [facility] , [place] [address] from Last 3 Months or Most Recently Relevant to Health Maintenance Insurance MEDICARE [place] [address] [place] [address]
== END 2025-08-15 23:59 | disposition home or self-care (01) ==
PROVIDERS: PCP Family Medicine; Visit Provider Physician Assistant
DX: M17.12 Unilateral primary osteoarthritis, left knee (principal); M85.862 Other specified disorders of bone density and structure, left lower leg; Z96.652 Presence of left artificial knee joint; M79.605 Pain in left leg
CPT/HCPCS: 73700

== ENCOUNTER 2025-08-16 07:25 | Outpatient (CLI) | payer MEDICARE, SELFPAY ==
--- OUTSIDE RECORDS SUMMARY | 2024-05-02 05:15 | XMS_ITS ---
Author Organization [facility] Address [facility] [address] [place] [id number] Care Team Providers Care Senior Cost Accountant Name Role Phone Sandoval Tuttle Primary Care [...] 05/02/2024 Encounters Encounter Location Date Provider Diagnosis [facility] 1210 [facility] 36 [facility] [address] [place], [place] [phone] 05/02/2024 Sandoval Tuttle Dizziness R42 and Asthma, [...] Name:Sandoval Kern ry, 11/01/2025 11:00:00 AM, [address], [address], [place], [place], [id number], Progress Notes * Yuliana PIERCEeDOB: (64 yo F)Acc No.[id number]:05/02/2024 Progress Notes Patient: Mari HILARIO Provider: Eliot Tuttle M.D. :1960 A ge:63 Y S ex:Female Date:05/02/2024 Address:[address] [place], [place] [phone] Subjective: * Chief Complaints: * 1 . [...] ERMATOLOGY: no R rosemary. n o H ryis. G ASTROENTEROLOGY: no N ausea. n o [...] smoke, Former Smoker: No. Janisbrenda is Stacy Talvaera. * Medications: T aking Loratadine 10 MG [...] * Images: Billing Information: * Visit Code: 82338 Office Visit, Est Pt., Level 3. * Procedure Codes: G2211 Complex e/m visit add on. * Electronic signature of Alice Tuttle MD on 08/16/2025 at 07:29 AM EST Sign off status: Pending * Provider: Eliot Tuttle M.D. Date: 0 05/02/2024 Generated for Marci khalil/Octavia/Elliotransmitting on: 10/16/2024 07:29 AM EST History and Physical Notes * [...]
--- OUTSIDE RECORDS SUMMARY | 2024-05-17 06:30 | XMS_ITS ---
Author Organization [facility] Address [facility] 36 [facility] [address] [place] [phone] Care Team Providers Care Chief Operations Officer Name Role Phone Sandoval Tuttle Primary Care Provider REASON FOR VISIT 6 month check up Encounters Encounter Location Date Provider Diagnosis [facility] [address] [place] [id number] 05/17/2024 Sandoval Tuttle Plan Of Treatment Next Appt Details Provider Name:Sandoval Kern ry, 11/01/2025 11:00:00 AM, [address], [address], [place], [place], [phone], Progress Notes * Papa PIERCEOB: (64 yo F)Acc No.[id number]:05/17/2024 Progress Notes Patient: Mari HILARIO Provider: Eliot Tuttle M.D. :1960 A ge:63 Y S ex:Female Date:05/17/2024 [facility] Subjective: * Chief Complaints: * 1 . 6 month check up. * Medical History: Objective: * Vitals: Assessment: Plan: * Treatment: * Images: Billing Information: * Visit Code: * Procedure Codes: * Electronic signature of Alice Tuttle MD on 08/16/2025 at 07:30 AM EST Sign off status: Pending * Provider: Eliot Tuttle M.D. Date: 0 05/17/2024 Generated for Marci khalil/Octavia/eTransmitting on: 10/16/2024 07:30 AM EST
--- OUTSIDE RECORDS SUMMARY | 2024-08-10 10:15 | XMS_ITS ---
Author Organization [facility] Address [facility] [address] [phone] Care Team Providers Care Records Associate Name Role Phone Sandoval Tuttle Primary Care Provider [phone] Allergies Allergen (clinical drug ingredient) Drug/Non Drug [...] 08/10/2024 Encounters Encounter Location Date Provider Diagnosis [facility] [address] [id number] 08/10/2024 Sandoval Tuttle Acute cough R 05.1 [address], [place], [phone], Progress Notes * Yuliana PIERCEeDOB: 1 (64 yo F)Acc No.[id number]:08/10/2024 Progress Notes Patient: Mari HILARIO Provider: Eliot Tuttle M.D. :1960 A ge:63 Y S ex:Female Date:08/10/2024 [facility] Subjective: * Chief Complaints: * 1 . [...] G 2211 Complex e/[place], [address] CAPILLARY BLOOD DRAW, 24334 CBC WITH AUTO DIFF * Follow Up: p rn * Images: Billing Information: * Visit Code: 25952 Office Visit, Est Pt., Level 3. * Procedure Codes: G2211 Complex e/[place]. [address] CAPILLARY BLOOD DRAW. 56327 CBC WITH AUTO DIFF. * Electronic signature of Alice Tuttle MD on 08/16/2025 at 07:29 AM EST Sign off status: Pending * Provider: Eliot Tuttle M.D. Date: 10/10/2023 Generated for Marci khalil/Octavia/Kellenitting on: 10/16/2024 07:29 AM EST History and [...]
--- OUTSIDE RECORDS SUMMARY | 2024-08-22 05:30 | XMS_ITS ---
Author Organization [facility] Address 1210 [facility] 36 [facility] [address] [place] [phone] Care Team Providers Care Spinning Lathe Operator Name Role Phone Sandoval Tuttle Primary Care Provider REASON FOR VISIT ear ache ,dry cough Encounters Encounter Location Date Provider Diagnosis [facility] [address] [place] [phone] 08/22/2024 Sandoval Tuttle Plan Of Treatment Next Appt Details Provider Name:Sandoval Kern ry, 11/01/2025 11:00:00 AM, [address], [address], [place], [place], [phone], Progress Notes * Yuliana PIERCEeDOB: (64 yo F)Acc No.[id number]:08/22/2024 Progress Notes Patient: Mari HILARIO Provider: Eliot Tuttle M.D. :1960 A ge:63 Y S ex:Female Date:08/22/2024 [facility] Subjective: * Chief Complaints: * 1 . Ear ache ,dry cough. * Medical History: Objective: * Vitals: Assessment: Plan: * Treatment: * Images: Billing Information: * Visit Code: * Procedure Codes: * Electronic signature of Alice Tuttle MD on 08/16/2025 at 07:28 AM EST Sign off status: Pending * Provider: Eliot Tuttle M.D. Date: 10/22/2023 Generated for Marci khalil/Octavia/eTransmitting on: 10/16/2024 07:28 AM EST
--- OUTSIDE RECORDS SUMMARY | 2024-10-09 04:45 | XMS_ITS ---
Author Organization [facility] Address [facility] [address] [place] [id number] Care Team Providers Care Programmer Name Role Phone Sandoval Tuttle Primary Care Provider [phone] Paulette Moreno Unavailable [phone] Allergies Allergen (clinical drug ingredient) Drug/Non Drug Allergy documented on EMR Reaction Allergy Type Onset Date Status metronidazole Flagyl stomach upset Drug Allergy Active Penicillin rash Drug Allergy Active Results Component Value Reference Range Notes Influenza Screen (in house) Reviewed date:10/09/2024 08:44:03 PM Interpretation:neg Performing Lab: Notes/Report: neg results neg Covid test (in house) Reviewed date:10/09/2024 08:43:50 PM Interpretation:neg Performing Lab: Notes/Report: neg Result: neg REASON FOR VISIT poss sinus infection Medications Medication SIG (Take, Route, Frequency, Duration) Notes Start Date End Date Status Symbicort 80-4.5 MCG/ACT INHALE 2 PUFFS INTO THE LUNGS 2 TIMES DAILY; Duration: 90 days Active Meclizine HCl 25 MG 1 tablet as needed O rally every 8 hrs 05/02/2024 Active Verapamil HCl 80 MG 1 tab(s) orally once a day; Duration: 90 days Active Montelukast Sodium 10 MG 1 tab(s) orally once a day; Duration: 90 days Active Fluticasone Propionate 50 MCG/ACT 1 spray(s) intranasally once a day Active Centrum Silver Ultra Womens - 1 tab(s) orally once a day; Duration: 90 day(s) 10/24/2013 Active Folic Acid 1 MG 3 tab orally once a day Active Atorvastatin Calcium 20 MG 1 tab(s) oral ly once a day (at bedtime); Duration: 90 days Active Famotidine 20 MG 1 tab(s) orally bedtime Active Lisinopril 10 MG 1 tab(s) orally once a day; Duration: 90 days Active Loratadine 10 MG 1 tablet Orally Once a day; Duration: 30 day(s) Active predniSONE 5 MG 1 tab orally once a day Active Methotrexate 2.5 MG 8 tab orally once weekly 12/18 Active Zithromax Z-Juan 250 MG 2 pills first day then one daily for 4 days orally as directed; Duration: 5 days 10/09/2024 Active Promethazine-DM 6.25-15 MG/5ML 5 ml as needed Orally every 6 hrs prn 10/09/2024 Active Furosemide 40 MG TAKE 1 TABLET EVERY DAY; Duration: 90 Active Promethazine-DM 6.25-15 MG/5ML 5 ml as needed Orally every 6 hrs 08/10/2024 Active Benzonatate 200 MG 1 capsule as needed Orally Three times a day 08/10/2024 Active Metoclopramide HCl 10 MG TAKE ONE TABLET BY MOUTH TWICE A DAY; Duration: 90 Active busPIRone HCl 10 MG 1 tab(s) orally 2 ti mes a day; Duration: 90 days Active Omeprazole 40 MG TAKE ONE CAPSULE BY MOUTH DAILY; Duration: 90 days Active Vital Signs Weight 180 lbs 10/09/2024 Blood pressure systolic 100 mm Hg 10/09/20 24 Blood pressure diastolic 60 mm Hg 024 Height 65 in 10/09/2024 BMI 29.95 kg/m2 10/09/2024 Encounters Encounter Location Date Provider Diagnosis [facility] [facility]10 [facility] [address] [phone] 10/09/2024 Paulette Moreno URI (upper respirato ry infection) J06.9 Assessments Encounter Date Diagnosis (ICD Code) Assessment Notes Treatment Notes Treatment Clinical Notes Section Notes 10/09/2024 URI (upper respiratory infection) (ICD-10 - J06.9) fluids, rest, supportive measures for fever/symptom relief; has an albuterol inhaler at home which she will use bid-tid Plan Of Treatment Medication Medication Name Sig Start Date Stop Date Notes Zithromax Z-Juan 250 MG 2 pills first day then one daily for 4 days orally as directed; Duration: 5 days 10/09/2024 Promethazine-DM 6.25-15 MG/5ML 5 ml as n eeded Orally every 6 hrs prn 10/09/2024 Treatment Notes Assessment Notes URI (upper respiratory infection) fluids , rest, supportive measures for fever/symptom relief; has an albuterol inhaler at home which she will use bid-tid Next Appt Details Follow Up: prn, Reason: Provider Name:Sandoval Kern ry, 11/01/2025 11:00:00 AM, [address] , [place], [place], [phone], Progress Notes * Yuliana PIERCEeDOB: (64 yo F)Acc No.[id number]:10/09/2024 Progress Notes Patient: Mari HILARIO Provider: JEFF Hu :1960 A ge:63 Y S ex:Female Date:10/09/2024 Address:[address] [place], [place] [address] Pcp:Sandoval Tuttle Subjective: * Chief Complaints: * 1 . Poss sinus infection. * HPI: E NT/respiratory: 63 year old female presents with c/o cough h as improved a little. c/o nasal congestion P t sts her drainage varies between color in clear, green and yellow. c/o ear pain. c/o rhinorrhea. c/o post nasal drainage. c/o Short of Breath. c/o headache. c/o chest congestion. Denies : sore throat. D enies : smoking. D enies : body aches. Fever P t sts she kept breaking out in sweats last night, but is unsure if she had a fever or not. Pt sts her symptoms started last ; eating and drinking OK. * ROS: D ERMATOLOGY: no R rosemary. [...] spray(s) intranasally once a day , Taking Symbicort 80-4.5 MCG/ACT Aerosol INHALE 2 PUFFS INTO THE LUNGS 2 TIMES DAILY , Taking Meclizine HCl 25 MG Tablet 1 tablet as needed Orally every 8 hrs , Taking Omeprazole 40 MG Capsule Delayed Release TAKE ONE CAPSULE BY MOUTH DAILY , Taking Furosemide 40 MG Tablet TAKE 1 TABLET EVERY DAY , Taking Promethazine-DM 6.25-15 MG/5ML Syrup 5 ml as needed Orally every 6 hrs , Taking Benzonatate 200 MG Capsule 1 capsule as needed Orally Three times a day , Taking Metoclopramide HCl 10 MG Tablet TAKE ONE TABLET BY MOUTH TWICE A DAY , Taking busPIRone HCl 10 MG Tablet 1 tab(s) orally 2 times a day , Medication List reviewed and reconciled with the patient * Allergies: P enicillin: rash, Flagyl: stomach upset. Objective: * Vitals: W t:180, Temp:97.8, BP:100/60, Nurse:BAO, Ht: 65, BMI:29.95. * Examination: E NT/Respiratory: General Appearance: well nourished and hydrated, NAD, alert; presents in a wheelchair; infrequent congested cough. E yes: sclera and conjunctiva clear. E ars: auditory canals normal bilaterally, tympanic membranes normal bilaterally. Nose : nares patent. O ral cavity : e rythema without exudate on pharynx. N shira : supple, no cervical lymphadenopathy. H eart : RRR. L ungs: bilateral rhonchi. Assessment: * Assessment: 1. U RI (upper respiratory infection) - J06.9 (Primary) Plan: * Treatment: * Labs: * L ab: Covid test (in house) (Collection Date & Time - 10/09/2024) n eg Value Reference Range R esult: neg * Sharon Wu 10/09/2024 10:2 0:11 AM > Provider reviewed results while patient in office.Paulette Moreno 10/09/2024 8:43:50 PM > ?Lab: Influenza Screen (in house) (Collection Date & Time - 10/09/2024)?neg * Value Reference Range r esults neg * Sharon Wu 10/09/2024 10:1 9:49 AM > Provider reviewed results while patient in office.Paulette Moreno 10/09/2024 8:44:03 PM > * Procedure Codes: G 2211 Complex e/[place], [address] Flu Test- Nasal Swab, Modifiers: QW , 68772 COVID TEST IN HOUSE, Modifiers: QW , 3074F SYST BP LT 130 MM HG, 3078F DIAST BP < 80 MM HG * Follow Up: p rn * Images: Billing Information: * Visit Code: 75852 Office Visit, Est Pt., Level 3. * Procedure Codes: G2211 Complex e/[place]. [address] Flu Test- Nasal Swab. Modifiers: QW 78314 COVID TEST IN HOUSE. Modifiers: QW 3074F SYST BP LT 130 MM HG. 3078F DIAST BP < 80 MM HG. * Electronic signature of Lynn yunstephen Moreno APRN on 08/16/2025 at 07:28 AM EST Sign off status: Pending * Provider: JEFF Hu Date: Generated for Marci khalil/Octavia/eTransmitting on: 10/16/2024 07:28 AM EST History and Physical Notes * HPI (History of Present Illness) Category Sub-Category Detail Notes Category Not es ENT/respiratory sore throat Pt sts her s ymptoms started last ; eating and drinking OK ear pain Short of Breath cough has improved a littl e Fever Pt sts she kept tip jad out in sweats last night, but is unsure if she had a fever or not post nasal drainage headache chest congestion rhinorrhea nasal congestion Pt sts her drainage varies between color in clear, green and yellow smoking body aches Examination Category Sub-Category Detail Notes Category Not es ENT/Respiratory Oral cavity : erythema without exudate on pharynx Ears: auditory canals norm al bilaterally, tympanic membranes normal bilaterally Neck : supple, no cervical lymphadenopathy Heart : RRR Lungs: bilateral rhonchi General Appearance: well nourished and h ydrated, NAD, alert; presents in a wheelchair; infrequent congested cough Nose : nares patent Eyes: sclera and conjuncti va clear
--- OUTSIDE RECORDS SUMMARY | 2024-10-31 05:00 | XMS_ITS ---
Author Organization [facility] Address [facility] [address] [phone] Care Team Providers Care Interactive Web Developer Name Role Phone Sandoval Tuttle Primary Care Provider Allergies Allergen (clinical drug ingredient) Drug/Non Drug Allergy documented on EMR Reaction Allergy Type Onset Date Status metronidazole Flagyl stomach upset Drug Allergy Active Penicillin rash Drug Allergy Active Results Component Value Reference Range Notes H-TSH Reviewed date:11/12/2024 12:22:52 PM Interpretation: Performing Lab: Notes/Report: H-Microalbumine/Creatinine Reviewed date:11/12/2024 12:23:03 PM Interpretation: Performing Lab: Notes/Report: H-Lipid Panel Reviewed date:11/12/2024 12:23:14 PM Interpretation: Performing Lab: Notes/Report: H-CMP Reviewed date:11/12/2024 12:23:26 PM Interpretation: Performing Lab: Notes/Report: H-CRP Reviewed date:11/12/2024 12:23:38 PM Interpretation: Performing Lab: Notes/Report: H-Sed Rate Reviewed date:11/12/2024 12:23:51 PM Interpretation: Performing Lab: Notes/Report: REASON FOR VISIT 6 months Medications Medication SIG (Take, Route, Frequency, Duration) Notes Start Date End Date Status Symbicort 80-4.5 MCG/ACT INHALE 2 PUFFS INTO THE LUNGS 2 TIMES DAILY; Duration: 90 days Active Fluticasone Propionate 50 MCG/ACT 1 spray(s) intranasally once a day Active Meclizine HCl 25 MG 1 tablet as needed O rally every 8 hrs 05/02/2024 Active Montelukast Sodium 10 MG 1 tab(s) orally once a day; Duration: 90 days Active Famotidine 20 MG 1 tab(s) orally bedtime Active Folic Acid 1 MG 3 tab orally once a day Active Centrum Silver Ultra Womens - 1 tab(s) orally once a day; Duration: 90 day(s) 10/24/2013 Active Methotrexate 2.5 MG 8 tab orally once weekly 12/18 Active Furosemide 40 MG TAKE 1 TABLET EVERY DAY Active Loratadine 10 MG 1 tablet Orally Once a day; Duration: 30 day(s) Active Omeprazole 40 MG TAKE ONE CAPSULE BY MOUTH DAILY Active Atorvastatin Calcium 20 MG 1 tab(s) oral ly once a day (at bedtime) Active predniSONE 5 MG 1 tab orally once a day Active Promethazine-DM 6.25-15 MG/5ML 5 ml as needed Orally every 6 hrs prn 10/09/2024 Active Lisinopril 10 MG 1 tab(s) orally once a day Active Verapamil HCl 80 MG 1 tab(s) orally once a day Active busPIRone HCl 10 MG 1 tab(s) orally 2 ti mes a day; Duration: 90 days Active Metoclopramide HCl 10 MG TAKE ONE TABLET BY MOUTH TWICE A DAY; Duration: 90 Active Vital Signs Weight 180 lbs 10/31/2024 Blood pressure systolic 98 mm Hg 10/31/19 25 Blood pressure diastolic 54 mm Hg 025 Heart Rate 102 /min 10/31/2024 Height 65 in 10/31/2024 BMI 29.95 kg/m2 10/31/2024 Encounters Encounter Location Date Provider Diagnosis [facility] [address] [phone] 10/31/2024 Sandoval Tuttle HTN (hypertension) I 10 ; Hyperlipidemia E78.5 ; Night sweats R61 and GERD (gastroesophageal reflux disease) K21.9 Assessments Encounter Date Diagnosis (ICD Code) Assessment Notes Treatment Notes Treatment Clinical Notes Section Notes 10/31/2024 HTN (hypertension) (ICD-10 - I10) 10/31/2024 Hyperlipidemia (ICD-10 - E78.5) 10/31/2024 Night sweats (ICD-10 - R61) 10/31/2024 GERD (gastroesophageal reflux disease) (ICD-10 - K21.9) Plan Of Treatment Medication Medication Name Sig Start Date Stop Date Notes Furosemide 40 MG TAKE 1 TABLET EVERY DAY Omeprazole 40 MG TAKE ONE CAPSULE BY MOUTH DAILY Atorvastatin Calcium 20 MG 1 tab(s) oral ly once a day (at bedtime) Lisinopril 10 MG 1 tab(s) orally once a day Verapamil HCl 80 MG 1 tab(s) orally once a day Next Appt Details Follow Up: via phone to repo rt test results, 6 Months, Reason: Provider Name:Sandoval Kern ry, 11/01/2025 11:00:00 AM, [address] [facility] [address], [place], [place], [phone], Progress Notes * Yuliana PIERCEeDOB: (64 yo F)Acc No.[id number]:10/31/2024 Progress Notes Patient: Mari HILARIO Provider: Eliot Tuttle M.D. :1960 A ge:63 Y S ex:Female Date:10/31/2024 Address:[address] [place], [place] [phone] Subjective: * Chief Complaints: * 1 . 6 months. * HPI: C ardiology: 63 year old female presents with c/o Blood Pressure Elevated?Pt here for 6 mo f/u on hypertension, states she is doing well and does not have any concerns.? c/o Hyperlipidemia P t is not fasting today. * ROS: D ERMATOLOGY: no R rosemary. [...] TAKE 1 TABLET EVERY DAY , Taking Metoclopramide HCl 10 MG Tablet TAKE ONE TABLET BY MOUTH TWICE A DAY , Taking busPIRone HCl 10 MG Tablet 1 tab(s) orally 2 times a day , Taking Promethazine-DM 6.25-15 MG/5ML Syrup 5 ml as needed Orally every 6 hrs prn , Discontinued Promethazine-DM 6.25-15 MG/5ML Syrup 5 ml as needed Orally every 6 hrs , Discontinued Benzonatate 200 MG Capsule 1 capsule as needed Orally Three times a day , Discontinued Zithromax Z-Juan 250 MG Tablet 2 pills first day then one daily for 4 days orally as directed , Medication List reviewed and reconciled with the patient * Allergies: P enicillin: rash, Flagyl: stomach upset. Objective: * Vitals: W t:180, Temp:97.9, BP:98/54, HR:102, Nurse:marzena, Ht: 65, BMI:29.95. * Examination: G eneral Examination: General Appearance: N AD, sitting in a wheel chair. H eart: R SR. L ungs: c lear to auscultation. S kin: n o rash. B ack: d orsal kyphosis. E xtremities: c ontractures noted in hands. Assessment: * Assessment: 1. H TN (hypertension) - I10 (Primary) 2 . H yperlipidemia - E78.5 ? 3 . N ight sweats - R61 4 . G ERD (gastroesophageal reflux disease) - K21.9 Plan: * Treatment: ?LAB: H-CMP (Collection Date & Time - 11/12/2024)* see duplicate order 2.?Hyperlipidemia? Continue Atorvastatin Calcium Tablet, 20 MG, 1 tab(s), orally, once a day (at bedtime).?LAB: H-TSH (Collection Date & Time - 11/12/2024)* see duplicate order ?LAB: H-Lipid Panel (Collection Date & Time - 11/12/2024)* see duplicate order ?LAB: H-CMP (Collection Date & Time - 11/12/2024)* see duplicate order 3.?Night sweats?LAB: H-CRP (Collection Date & Time - 11/12/2024)* see duplicate order ?LAB: H-Sed Rate (Collection Date & Time - 11/12/2024)* see duplicate order 4.?GERD (gastroesophageal reflux disease)? Continue Omeprazole Capsule Delayed Release, 40 MG, TAKE ONE CAPSULE BY MOUTH DAILY.?? * Procedure Codes: G 2211 Complex e/m visit add on * Follow Up: v ia phone to report test results, 6 Months * Images: Billing Information: * Visit Code: 54855 Office Visit, Est Pt., Level 4. * Procedure Codes: G2211 Complex e/m visit add on. * Electronic signature of Alice Tuttle MD on 08/16/2025 at 07:30 AM EST Sign off status: Pending * Provider: Eliot Tuttle M.D. Date: 0 10/31/2024 Generated for Marci khalil/Octavia/Holly on: 10/16/2024 07:30 AM EST History and Physical Notes * HPI (History of Present Illness) Category Sub-Category Detail Notes Category Not es Cardiology Blood Pressure Elevated Pt here for 6 mo f/u on hypertension, states she is doing well and does not have any concerns Hyperlipidemia Pt is not fasting to day Examination Category Sub-Category Detail Notes Category Not es General Examination Heart: RSR Lungs: clear to auscultatio n Extremities: contractures noted i n hands General Appearance: NAD, sitting in a wh eel chair Skin: no rash Back: dorsal kyphosis
--- OUTSIDE RECORDS SUMMARY | 2025-05-01 06:30 | XMS_ITS ---
Author Organization [facility] Address 1210 [facility] [address] [place] [phone] Care Team Providers Care Balloon Dipper Name Role Phone Sandoval Tuttle Primary Care [...] Problem Body mass index 30+ - obesity (109519679) BMI 30.0-30.9,a dult (Z68.30) Active confirmed Vital Signs Weight 181 lbs 05/01/2025 Blood pressure systolic 102 mm Hg 05/01/20 25 Blood pressure diastolic 60 mm Hg 025 Height 65 in 05/01/2025 BMI 30.12 kg/m2 05/01/2025 Encounters Encounter Location Date Provider Diagnosis [facility] [address] [place] [id number] 05/01/2025 Sandoval Tuttle HTN (hypertension) I 10 [address], [place], [id number], Progress Notes * Papa PIERCEOB: 1 (64 yo F)Acc No.[id number]:05/01/2025 Progress Notes Patient: Mari HILARIO Provider: Eliot Tuttle M.D. :1960 A ge:64 Y S ex:Female Date:05/01/2025 Address:[address] [place] [address] Subjective: * Chief Complaints: * 1 . [...] whether persistent - J45.909 4 . B FL 30.0-30.9,adult - Z68.30 Plan: * Treatment: 2. B loating Notes: OTC probiotic recommended * Procedure Codes: G 2211 Complex e/m visit add on, 1036F TOBACCO NON-USER, G8950 PREHTN/HTN BP DOC INDCD F/U DOC, G8752 MOST RECENT SYSTOLIC BP < 140MM HG, G8754 MOST RECENT DIASTOLIC BP < 90MM HG * Follow Up: 6 Months * Images: Billing Information: * Visit Code: 99890 Office Visit, Est Pt., Level 3. * [...] 05/01/2025 Generated for Marci khalil/Octavia/Himanshusmitting on: 1 10/16/2024 07:29 AM EST History and Physical [...]
--- OUTSIDE RECORDS SUMMARY | 2025-06-14 06:30 | XMS_ITS ---
Author Organization [facility] Address [facility] [address] [place] [phone] Care Team Providers Care Steam Frame Operator Name Role Phone Sandoval Tuttle Primary [...] 06/14/2025 Encounters Encounter Location Date Provider Diagnosis [facility] 1210 [facility] 36 [facility] [address] [place], [place] [phone] 06/14/2025 Sandoval Tuttle Acute cough R 05.1 [...] Name:Sandoval Kern ry, 11/01/2025 11:00:00 AM, 1210 [facility] 36 [facility], [address], [place], [place], [phone], Progress Notes * Yuliana PIERCEeDOB: 1 (64 yo F)Acc No.[id number]:06/14/2025 Progress Notes Patient: Mari HILARIO Provider: Eliot Tuttle M.D. :1960 A ge:64 Y S ex:Female Date:06/14/2025 Address:[address] [place], [place] [phone] Subjective: * Chief Complaints: * 1 . [...] p latlet 370 100 - 400 * Lisbeth Muir 06/14/2025 12:27:0 1 PM EDT > Provider reviewed results while patient in office. * Procedure Codes: G 2211 Complex e/[place], [address] CBC WITH AUTO DIFF, 79900 VENIPUNCT, ROUTINE*, 1036F TOBACCO NON-USER, G8752 MOST RECENT SYSTOLIC BP < 140MM HG, G8754 MOST RECENT DIASTOLIC BP < 90MM HG, G8783 BP SCR PRFRM RCMDD DEFIND SCR INTVL * Follow Up: v ia phone to report progress * Images: Billing Information: * Visit Code: 94889 Office Visit, Est Pt., Level 3. * Procedure Codes: G2211 Complex e/[place]. [address] CBC WITH AUTO DIFF. 34781 VENIPUNCT, ROUTINE*. 1036F TOBACCO NON-USER. G8752 MOST RECENT SYSTOLIC BP < 140MM HG. G8754 MOST RECENT DIASTOLIC BP < 90MM HG. G8783 BP SCR PRFRM RCMDD DEFIND SCR INTVL. * Electronic signature of Alice Tuttle MD on 08/16/2025 at 07:27 AM EST Sign off status: Pending * Provider: Eliot Tuttle M.D. Date: 0 06/14/2025 Generated for Marci khalil/Octavia/Himanshusmitting on: 10/16/2024 07:27 AM EST History and Physical Notes * [...]
--- OUTSIDE RECORDS SUMMARY | 2025-06-24 09:15 | XMS_ITS ---
Author Organization [facility] [address] [place] [phone] Care Team Providers Care Agricultural Economics Professor Name Role Phone Sandoval Tuttle Primary Care Provider [phone] Allergies Allergen (clinical drug ingredient) Drug/Non Drug [...] 06/24/2025 Encounters Encounter Location Date Provider Diagnosis [facility] 1210 [facility] 36 [facility] [address] [place] [id number] 06/24/2025 Sandoval Tuttle Acute cough R 05.1 [...] AM, [address] [facility], [address], [place], [phone], Progress Notes * Papa PIERCEOB: 1 (64 yo F)Acc No.[id number]:06/24/2025 Progress Notes Patient: Mari HILARIO Provider: Eliot Tuttle M.D. :1960 A ge:64 Y S ex:Female Date:06/24/2025 [address] [facility] Subjective: * Chief Complaints: * 1 . [...] G 2211 Complex e/[place], [address] CBC WITH AUTO DIFF, 20761 VENIPUNCT, ROUTINE*, 1036F TOBACCO NON-USER, G8783 BP SCR PRFRM RCMDD DEFIND SCR INTVL, G8752 MOST RECENT SYSTOLIC BP < 140MM HG, G8754 MOST RECENT DIASTOLIC BP < 90MM HG, 3074F SYST BP LT 130 MM HG, 3078F DIAST BP < 80 MM HG * Follow Up: v ia phone to report progress * Images: Billing Information: * Visit Code: 42015 Office Visit, Est Pt., Level 3. * Procedure Codes: G2211 Complex e/[place]. [address] CBC WITH AUTO DIFF. 95693 VENIPUNCT, ROUTINE*. 1036F TOBACCO NON-USER. G8783 BP [...] 06/24/2025 Generated for Marci khalil/Octavia/eTkacysmitting on: 1 10/16/2024 07:30 AM EST History and Physical [...]
--- OUTSIDE RECORDS SUMMARY | 2025-08-16 07:28 | XMS_ITS | Clinical Summary ---
[facility] Address [address] [place] [address] Care Team Providers Care Block Hacker Name Role Phone Sandoval Tuttle MD Primary Care Provider [phone] Social History Tobacco Use Types Packs/Day Years [...] 07/10/2018 HEPATITIS C SCREENING Completed 05/14/2020 Insurance [facility] MEDICARE ADVANTAGE Care Teams Block Hacker Relationship Specialty Start Date End Date Sandoval Tuttle MD [address] [facility] [address] [place] [address] PCP - General Family Medicine 01/06/23
--- OUTSIDE RECORDS SUMMARY | 2025-08-16 07:28 | XMS_ITS | Clinical Summary ---
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 Name Role Phone Osvaldo Sorensen MD Unavailable [phone] LONNIE SOLANO Primary Care Provider [phone] Reason for Visit and Chief Complaint The Chief Complaint is: R wrist pain Problems Includes: Problems addressed during this encounter and other active Problems Current Visit Onset Date Resolved Date Provider Conditio n Status Bone Pain in Left Lower Leg 08/13/2025 Linda Oro PA-C Active Last Documented On 5 1:42PM ; [facility], [facility] Past Visits Onset Date Resolved Date Provider Condition Status Soft Tissue Pain Lower Leg Left 08/13/2025 Linda Oro PA-C Active Last Documented On 5 1:44PM ; [facility], [facility] Joint Pain Wrist Right 02/09/2024 Michell douglass APRN Active Last Documented On 4 10:10AM ; [facility], [facility] Joint Pain Shoulder 10/17/2012 Osvaldo olson MD Active Last Documented On 3 12:57PM ; [facility], [facility] Joint Pain Hip 09/26/2012 Chelsea Slater MD Ac tive Last Documented On 2 1:28PM ; [facility], [facility] Plan of Treatment Pending Tests Order Diagnosis Results Due Ordering P rovider Radiology - MRI MRI Tib/Fib Pain in left leg 11/13/25 Laura Sorensen MD Last Documented On 12:30PM ; [facility] Future Appointments Date Time Location Provi evonne Outside Test 08/16/2025 9:45AM [facility] Last Documented On 10:07AM ; [facility] Follow Up 08/19/2025 1:00PM [facility] PS C Linda Oro PA-C Last Documented On 10:04AM ; [facility] Assessments Includes: Assessments from this encounter Findings The patient has had x-rays of the hand and wrist, 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 The pins are prominent and are painful. - Last Documented On 08/08/2025 2:03PM ; [facility] The patient has prominent pins she has very thin skin. We will plan on removing all of the pins. - Last Documented On 08/08/2025 2:03PM ; [facility] Medical Equipment - Implanted Devices Includes: Current Devices No Medical Equipment Recorded Medications Includes: Medications discussed during this encounter and other current Medications Discontinued / Stopped on this date LONNIE SOLANO on 06/14/2025 Cefdinir 300 MG Oral Capsule Provider: LONNIE SOLANO Diagnosis: Last Documented On 11:17AM By Shila Steiner ; [facility] Fluticasone Propionate 50 MC G/ACT Nasal Suspension Provider: LONNIE SOLANO Diagnosis: Last Documented On 11:16AM By Shila Steiner ; [facility] Fluconazole 100 MG Oral Tablet Provider: Diagnosis: Last Documented On 11:16AM By Shila Steiner ; [facility] Albuterol Sulfate HFA 108 (9 0 Base) MCG/ACT Inhalation Aerosol Solution Provider: Diagnosis: Last Documented On 11:16AM By Shila Steiner ; [facility] Nystatin 115380 UNIT/ML Mouth/Throat Suspension Provider: Diagnosis: Last Documented On 5 11:16AM By Shila Steiner ; [facility] busPIRone HCl 10 MG Oral Tablet Provider: LONNIE SOLANO Diagnosis: Last Documented On 5 11:16AM By Shila Steiner ; [facility], [facility] Omeprazole 40 MG Oral Capsule Delayed Release Provider: LONNIE BECKGLO Diagnosis: Last Documented On 5 11:16AM By Shila Steiner ; [facility] predniSONE 5 MG Oral Tablet Provider: Dagmar Lundberg MD Diagnosis: Last Documented On 5 11:16AM By Shila Steiner ; [facility] Folic Acid 1 MG Oral Tablet Provider: Dagmar Lundberg MD Diagnosis: Last Documented On 5 11:16AM By Shila Steiner ; [facility], [facility] Methotrexate Sodium 2.5 MG Oral Tablet Pr ovider: Dagmar Lundberg MD Diagnosis: Last Documented On 5 11:16AM By Shila Steiner ; [facility], [facility] Atorvastatin Calcium 40 MG Oral Tablet Pr ovider: CHELSEA FORDE MD Diagnosis: Last Documented On 5 11:16AM By Shila Steiner ; [facility], [facility] predniSONE 5 MG Oral Tablet Provider: Dagmar Lundberg MD Diagnosis: Last Documented On 5 11:16AM By Shila Steiner ; [facility], [facility] Azithromycin 250 MG Oral Tablet Provider: Paulette Moreno APRN Diagnosis: Last Documented On 5 11:16AM By Shila Steiner ; [facility], [facility] Symbicort 80-4.5 MCG/ACT Inhalation Aerosol Provider: LONNIE SOLANO Diagnosis: Last Documented On 5 11:16AM By Shila Steiner ; [facility] Verapamil HCl 80 MG Oral Tablet Provider: CHELSEA FORDE MD Diagnosis: Last Documented On 5 11:16AM By Shila Steiner ; [facility] Metoclopramide HCl 10 MG Oral Tablet Prov ider: LONNIE BECKGLO Diagnosis: Last Documented On 5 11:16AM By Shila Steiner ; [facility] Montelukast Sodium 10 MG Oral Tablet Prov ider: CHELSEA FORDE MD Diagnosis: Last Documented On 11:16AM By Shila Steiner ; [facility] Lisinopril 10 MG Oral Tablet Provider: CHELSEA FORDE MD Diagnosis: Last Documented On 11:16AM By Shila Steiner ; [facility] Furosemide 40 MG Oral Tablet Provider: LONNIE SOLANO Diagnosis: Last Documented On 11:16AM By Shila Steiner ; [facility], [facility] Current Medications (continue as prescribed) Loratadine 10 MG Oral Tablet 08/09/2025 Provider: Diagnosis: Last Documented On 1:21PM By Lita Barrera ; [facility], [facility] Famotidine 20 MG Oral Tablet 08/09/2025 Provider: Diagnosis: Last Documented On 1:21PM By Lita Barrera ; [facility] Symbicort 160-4.5 MCG/ACT Inhalation Aerosol Provider: Diagnosis: Last Documented On 1:20PM By Lita Barrera ; [facility], [facility] Prolia 60 MG/ML Subcutaneous Solution Prefilled Syring e 08/09/2025 Provider: Diagnosis: Last Documented On 1:22PM By Lita Barrera ; [facility] Atorvastatin Calcium 20 MG Oral Tablet 08/09/2025 Pr ovider: Diagnosis: Last Documented On 1:21PM By Lita Barrera ; [facility] Methotrexate 125 MG/5ML Intr amuscular Solution Prefilled Syringe 08/09/2025 Provider: Diagnosis: Last Documented On 1:19PM By Lita Barrera ; [facility] Clindamycin HCl 150 MG Oral Capsule 08/05/2025 Provi evonne: Diagnosis: Last Documented On 11:17AM By Shila Steiner ; [facility] Montelukast Sodium 10 MG Oral Tablet 08/02/2025 Prov ider: LONNIE SOLANO Diagnosis: Last Documented On 1:20PM By Lita Barrera ; [facility], [facility] Montelukast Sodium 10 MG Oral Tablet 08/02/2025 Prov ider: LONNIE BECKBERRY Diagnosis: Last Documented On 11:17AM By Shila Steiner ; [facility] Folic Acid 1 MG Oral Tablet 07/31/2025 Provider: Dagmar Lundberg MD Diagnosis: Last Documented On 11:17AM By Shila Steiner ; [facility] predniSONE 5 MG Oral Tablet 07/31/2025 Provider: Dagmar Lundberg MD Diagnosis: Last Documented On 1:20PM By Lita Barrera ; [facility], [facility] Furosemide 40 MG Oral Tablet 07/09/2025 Provider: LONNIE BECKGLO Diagnosis: Last Documented On 11:17AM By Shila Steiner ; [facility] Metoclopramide HCl 10 MG Oral Tablet 07/09/2025 Prov ider: LONNIE MULBERRY Diagnosis: Last Documented On 11:17AM By Shila Steiner ; [facility], [facility] Omeprazole 40 MG Oral Capsule Delayed Release 07/09/20 Provider: LONNIE BECKBERRY Diagnosis: Last Documented On 11:17AM By Shila Steiner ; [facility], [facility] busPIRone HCl 10 MG Oral Tablet 07/09/2025 Provider: LONNIE BECKBERRY Diagnosis: Last Documented On 1:20PM By Lita Barrera ; [facility], [facility] Lisinopril 10 MG Oral Tablet 06/15/2025 Provider: LONNIE MULBERRY Diagnosis: Last Documented On 11:17AM By Shila Steiner ; [facility], [facility] Verapamil HCl 80 MG Oral Tablet 06/15/2025 Provider: LONNIE MULBERRY Diagnosis: Last Documented On 11:17AM By Shila Steiner ; [facility], [facility] Past Medications on file Magic Mouthwash (L/N/B/M) Oral Solution 11/20/2024 - 11/26/2024 Provider: Osvaldo olson MD Diagnosis: swish, gargle spit 1-2 teasp oons (5-10 mL) every 4-6 hours as needed Last Documented On 5 10:33AM By Dr. Sorensen ; [facility] HYDROcodone-Acetaminophen 7. 5-325 MG Oral Tablet 11/12/2024 - 11/15/2024 Provider: Osvaldo Sorensen MD Diagnosis: 1 tab every 6 hrs prn pain Last Documented On 5 12:55PM By Dr. Sorensen ; [facility] Vitamin C 1000 MG Oral Tablet 11/12/2024 - 01/11/2025 Provider: Osvadlo olson MD Diagnosis: once a day take 1 tablet once daily post surgery Last Documented On 12:55PM By Lita Barrera ; [facility] Naproxen 500 MG Oral Tablet 11/12/2024 - 12/12/2024 Pr ovider: Osvaldo Sorensen MD Diagnosis: take one tablet twice a day prn following surger y Last Documented On 5 12:55PM By Lita Barrera ; [facility] Vitamin C 1000 MG Oral Tablet 08/03/2024 - 10/02/2024 Provider: sOvaldo olson MD Diagnosis: once a day take 1 tablet once daily post surgery Last Documented On 4 9:39AM By Lita Barrera ; [facility] Naproxen 500 MG Oral Tablet 08/03/2024 - 09/02/2024 Pr ovider: Osvaldo Sorensen MD Diagnosis: take one tablet twice a day prn following surger y Last Documented On 4 9:39AM By Lita Barrera ; [facility] [place] 5-325 MG OR TABS 06/19/2014 - 07/19/2014 Provider: Jose Long MD Diagnosis: DEGENERATIVE MARY NT DISEASE KNEE Last Documented On 4 3:42PM By Rome Marinelli User ; [facility] Lortab 7.5-500 MG OR TABS 10/17/2012 - 10/22/2012 Prov ider: Osvaldo Sorensen MD Diagnosis: sx 1--13 //cr Last Documented On 3 1:15PM By Roseanne [place] ; [facility] Naproxen 500 MG OR TABS 10/17/2012 - 11/01/2012 Provid er: Osvaldo Sorensen MD Diagnosis: sx 1-9-13 //cr Last Documented On 3 1:15PM By Roseanne Yung ; [facility] Lortab 7.5-500 MG OR TABS 11/22/2011 - 12/02/2011 Prov ider: Osvaldo Sorensen MD Diagnosis: sx 2-15-12//cr Last Documented On 2 10:00AM By Roseanne [place] ; [facility] OxyCONTIN 20 MG OR TB12 11/22/2011 - 12/02/2011 Provid er: Osvaldo Sorensen MD Diagnosis: sx 2-15-12//cr Last Documented On 2 10:00AM By Roseanne [place] ; [facility] Naproxen 500 MG OR TABS 11/22/2011 - 12/07/2011 Provid er: Osvaldo Sorensen MD Diagnosis: sx 2-15-12//cr Last Documented On 2 10:00AM By Roseanne [place] ; [facility] Lortab 7.5-500 MG OR TABS 07/29/2011 - 08/04/2011 Prov ider: Osvaldo Sorensen MD Diagnosis: [facility] [phone] Last Documented On 1 10:49AM By Stacey Peter ; [facility] OxyCONTIN 20 MG OR TB12 07/02/2011 - 07/16/2011 Provid er: Osvaldo Sorensen MD Diagnosis: sx 07-05-11//cr Last Documented On 1 1:18PM By Roseanne [place] ; [facility] Voltaren 50 MG OR TBEC 07/02/2011 - 07/09/2011 Provide r: Osvaldo Sorensen MD Diagnosis: sx 07-05-11//cr Last Documented On 1 1:17PM By Roseanne Yung ; [facility] Percocet 5-325 MG OR TABS 07/02/2011 - 07/09/2011 Prov ider: Osvaldo Sorensen MD Diagnosis: sx 07-05-11//cr Last Documented On 1 1:16PM By Roseanne Barragan ; [facility] Voltaren 50 MG OR TBEC 08/07/2008 - 08/14/2008 Provide r: Osvaldo Sorensen MD Diagnosis: cb Last Documented On 8 10:41AM By Nikky Andrews ; [facility] Percocet 5-325 MG OR TABS 08/07/2008 - 08/12/2008 Prov ider: Osvaldo Sorensen MD Diagnosis: cb Last Documented On 8 10:40AM By Nikky Andrews ; [facility] OxyCONTIN 20 MG OR TB12 08/07/2008 - 08/21/2008 Provid er: Osvaldo Sorensen MD Diagnosis: cb Last Documented On 8 10:34AM By Nikky Andrews ; [facility] Medications Administered Includes: Administered Medications from this encounter No Administered Medications Recorded Vital Signs Includes: Vital Signs from this encounter Vital Name 08/08/2025 11:17A Height (in) 64 Weight (lb) 175 Body Mass Index 30 Body Surface Area 1.8 Note: ah Last Documented: On 08/08/2025 11:17A M ; [facility] Results Includes: Results discussed during this encounter No Results Recorded For Specified Dates History of Present Illness Includes: History of Present Illness from this encounter NAT Clark is a 64 year old female. - Allergy list reviewed - Problem list reviewed - Medication list reviewed Patient is here today for follow up, she has had fusion of the metacarpophalangeal joints and the pins are prominent. They have been bothering her. She has also noticed severe pain in her left leg just above the ankle, she does not have any trauma but has had a history of stress fractures. She has very severe osteoporosis Social History Description Last Updated Caffeine use 02/10/2024 Last Documented On 5 11:17AM ; [facility] No recent change in diet 02/10/2024 Last Documented On 5 11:17AM ; [facility] Not a current smoker. 02/10/2024 Last Documented On 5 11:17AM ; [facility] Not exercising regularly 02/10/2024 Last Documented On 5 11:17AM ; [facility] Not using alcohol 02/10/2024 Last Documented On 5 11:17AM ; [facility] Not using drugs 02/10/2024 Last Documented On 5 11:17AM ; [facility] Tobacco non-user 02/09/2024 Last Documented On 5 11:17AM ; [facility] No tobacco use 06/19/2014 Last Documented On 5 11:17AM ; [facility] Smoking status : Never smoked/ Recode: 4 06/19/2014 Last Documented On 5 11:17AM ; [facility] Procedures and Surgical History Surgical History Last Updated History of History of Gallbladder 2023 Last Documented On 5 11:17AM ; [facility] Past Surgical History: total wrist, thum b fusion, finger joints 02/10/2024 Last Documented On 5 11:17AM ; [facility] Medical History Includes: Medical History addressed during this encounter Description Last Updated scleroderma, IBS 02/10/2024 Last Documented On 5 11:17AM ; [facility] History of arthritis 02/10/2024 Last Documented On 5 11:17AM ; [facility] History of asthma 02/10/2024 Last Documented On 5 11:17AM ; [facility] History of Fractures 02/10/2024 Last Documented On 5 11:17AM ; [facility] History of Heartburn / Acid Reflux 02/09 Last Documented On 5 11:17AM ; [facility] History of History of Rheumatology 02/09 Last Documented On 5 11:17AM ; [facility] History of Hypertension 02/10/2024 Last Documented On 5 11:17AM ; [facility] History of osteoporosis 02/10/2024 Last Documented On 5 11:17AM ; [facility] Family History Includes: Family History addressed during this encounter Description Last Updated Diabetes mellitus 02/10/2024 Last Documented On 5 11:17AM ; [facility] Family history of cancer 02/10/2024 Last Documented On 5 11:17AM ; [facility] Family history of osteoporosis 4 Last Documented On 5 11:17AM ; [facility] Family history of rheumatoid arthritis 0 02/10/2024 Last Documented On 5 11:17AM ; [facility] Family history of systemic hypertension 02/10/2024 Last Documented On 5 11:17AM ; [facility], [facility] Stroke / Seizures 02/10/2024 Last Documented On 5 11:17AM ; [facility] Review of Systems Includes: Review of [...] Allergy 03/04/2006 Active Last Documented On 5 12:57PM ; [facility] Encounters Encounter Provider Location Date Check-In Time Check- Out Time Diagnosis Follow Up Osvaldo Sorensen MD [facility] 5 10:58AM 1:00PM Insurance Includes: Active Insurance Policies Plan Name Member ID Group # Subscriber Relationship Effect apryl Dates 1 - [employer] [id number] Mari gasca Clinical Notes Includes: Clinical Notes from this encounter No Clinical Notes Recorded
--- OUTSIDE RECORDS SUMMARY | 2025-08-16 07:28 | XMS_ITS | Clinical Summary ---
Author Organization [facility] , [facility] Address [address] [place] [address] Phone Care Team Providers Care Channel Development Director Name Role Phone Osvaldo Sorensen MD Unavailable [phone] LONNIE SOLANO Primary Care Provider [phone] Reason for Visit and Chief Complaint The Chief Complaint is: L tib/fib pain Problems Includes: Problems addressed during this encounter and other active Problems Current Visit Onset Date Resolved Date Provider Conditio n Status Soft Tissue Pain Lower Leg Left 08/13/2025 Linda Oro PA-C Active Last Documented On 5 1:44PM ; [facility], [facility] Past Visits Onset Date Resolved Date Provider Condition Status Bone Pain in Left Lower Leg 08/13/2025 Linda Oro PA-C Active Last Documented On 5 1:42PM ; [facility], [facility] Joint Pain Wrist Right 02/09/2024 Michell douglass APRN Active Last Documented On 4 10:10AM ; [facility], [facility] Joint Pain Shoulder 10/17/2012 Osvaldo olson MD Active Last Documented On 3 12:57PM ; [facility], [facility] Joint Pain Hip 09/26/2012 Faustino Slater MD Ac tive Last Documented On 2 1:28PM ; [facility], [facility] Plan of Treatment I have reviewed the available imaging and physical exam findings with the patient and her family member at today's appointment. I have also reviewed these with Dr. Patiño who is in agreement with the plan as outlined below. We will order a stat CT scan of the left lower extremity in addition to a total body bone scan with emphasis on the left lower extremity. Additionally, we will order blood work including a CBC, ESR, and CRP. I will follow up with her after these imaging studies have been performed. Should the patient develop a fever or constitutional symptoms concerning for infection she will present to an emergency department. I will otherwise plan to follow up with her after the imaging studies. She and her family member are very comfortable with this plan and will call our office with any questions or concerns. - Last Documented On 08/13/2025 3:05PM ; [facility], [facility] Future Appointments Date Time Location Provi evonne Outside Test 08/16/2025 9:45AM [facility] Last Documented On 10:07AM ; [facility], [facility] Follow Up 08/19/2025 1:00PM [facility] LLUVIA Oro PA-C Last Documented On 10:04AM ; [facility], [facility] Instructions to patient Lose weight Last Documented On 1:30PM ; [facility], [facility] Assessments Includes: Assessments from this encounter Findings - Overweight - Last Documented On 08/13/2025 3:05PM ; [facility], [facility] Instructions Includes: Instructions from this encounter Instructions to patient Lose weight Last Documented On 1:30PM ; [facility], [facility] Medical Equipment - Implanted Devices Includes: Current Devices No Medical Equipment Recorded Medications Includes: Medications discussed during this encounter and other current Medications Current Medications (continue as prescribed) Loratadine 10 MG Oral Tablet 08/09/2025 Provider: Diagnosis: Last Documented On 1:21PM By [facility] Famotidine 20 MG Oral Tablet 08/09/2025 Provider: Diagnosis: Last Documented On 1:21PM By Lita GARAY [facility] Symbicort 160-4.5 MCG/ACT Inhalation Aerosol Provider: Diagnosis: Last Documented On 1:20PM By Lita Karbo ; [facility] Prolia 60 MG/ML Subcutaneous Solution Prefilled Syring e 08/09/2025 Provider: Diagnosis: Last Documented On 1:22PM By Lita Barrera ; [facility] Atorvastatin Calcium 20 MG Oral Tablet 08/09/2025 Pr ovider: Diagnosis: Last Documented On 1:21PM By Lita Barrera ; [facility] Methotrexate 125 MG/5ML Intr amuscular Solution Prefilled Syringe 08/09/2025 Provider: Diagnosis: Last Documented On 1:19PM By Lita Barerra ; [facility] Clindamycin HCl 150 MG Oral Capsule 08/05/2025 Provi evonne: Diagnosis: Last Documented On 11:17AM By Shila Steiner ; [facility] Montelukast Sodium 10 MG Oral Tablet 08/02/2025 Prov ider: LONNIE SOLANO Diagnosis: Last Documented On 1:20PM By Lita Barrera ; [facility] Montelukast Sodium 10 MG Oral Tablet 08/02/2025 Prov ider: LONNIE MULGLO Diagnosis: Last Documented On 11:17AM By Shila Steiner ; [facility] Folic Acid 1 MG Oral Tablet 07/31/2025 Provider: Dagmar Lundberg MD Diagnosis: Last Documented On 11:17AM By Shila Steiner ; [facility] predniSONE 5 MG Oral Tablet 07/31/2025 Provider: Dagmar Lundberg MD Diagnosis: Last Documented On 1:20PM By Lita Barrera ; [facility] Furosemide 40 MG Oral Tablet 07/09/2025 Provider: LONNIE SOLANO Diagnosis: Last Documented On 11:17AM By Shila Steiner ; [facility] Metoclopramide HCl 10 MG Oral Tablet 07/09/2025 Prov ider: LONNIE KIRANGLO Diagnosis: Last Documented On 11:17AM By Shila Steiner ; [facility] Omeprazole 40 MG Oral Capsule Delayed Release 07/09/20 Provider: LONNIE MULBERRY Diagnosis: Last Documented On 11:17AM By Shila Steiner ; [facility] busPIRone HCl 10 MG Oral Tablet 07/09/2025 Provider: LONNIE BECKBERRY Diagnosis: Last Documented On 1:20PM By Lita Barrera ; [facility] Lisinopril 10 MG Oral Tablet 06/15/2025 Provider: LONNIE BECKBERRY Diagnosis: Last Documented On 11:17AM By Shila Steiner ; [facility] Verapamil HCl 80 MG Oral Tablet 06/15/2025 Provider: LONNIE MULBERRY Diagnosis: Last Documented On 11:17AM By Shila Steiner ; [facility], [facility] Past Medications on file Magic Mouthwash (L/N/B/M) Oral Solution 11/20/2024 - 11/26/2024 Provider: Osvaldo olson MD Diagnosis: swish, gargle spit 1-2 teasp oons (5-10 mL) every 4-6 hours as needed Last Documented On 10:33AM By Dr. Sorensen ; [facility], [facility] HYDROcodone-Acetaminophen 7. 5-325 MG Oral Tablet 11/12/2024 - 11/15/2024 Provider: Osvaldo Sorensen MD Diagnosis: 1 tab every 6 hrs prn pain Last Documented On 12:55PM By Dr. Sorensen ; [facility] Vitamin C 1000 MG Oral Tablet 11/12/2024 - 01/11/2025 Provider: Osvaldo olson MD Diagnosis: once a day take 1 tablet once daily post surgery Last Documented On 12:55PM By Lita Barrera ; [facility] Naproxen 500 MG Oral Tablet 11/12/2024 - 12/12/2024 Pr ovider: Osvaldo Sorensen MD Diagnosis: take one tablet twice a day prn following surger y Last Documented On 12:55PM By Lita Barrera ; [facility] Vitamin C 1000 MG Oral Tablet 08/03/2024 - 10/02/2024 Provider: Osvaldo olson MD Diagnosis: once a day take 1 tablet once daily post surgery Last Documented On 4 9:39AM By Lita Barrera ; [facility] Naproxen 500 MG Oral Tablet 08/03/2024 - 09/02/2024 Pr ovider: Osvaldo Sorensen MD Diagnosis: take one tablet twice a day prn following surger y Last Documented On 4 9:39AM By Lita Barrera ; [facility] [place] 5-325 MG OR TABS 06/19/2014 - 07/19/2014 Provider: Jose Long MD Diagnosis: DEGENERATIVE MARY NT DISEASE KNEE Last Documented On 4 3:42PM By Peter 5 User ; [facility] Lortab 7.5-500 MG OR TABS 10/17/2012 - 10/22/2012 Prov ider: Osvaldo Sorensen MD Diagnosis: sx 1-9-13 //cr Last Documented On 3 1:15PM By Roseanne Barragan ; [facility] Naproxen 500 MG OR TABS 10/17/2012 - 11/01/2012 Provid er: Osvaldo Sorensen MD Diagnosis: sx 1-9-13 //cr Last Documented On 3 1:15PM By Roseanne Barragan ; [facility] Lortab 7.5-500 MG OR TABS 11/22/2011 - 12/02/2011 Prov ider: Osvaldo Sorensen MD Diagnosis: sx 2-15-12//cr Last Documented On 2 10:00AM By Roseanne Barragan ; [facility] OxyCONTIN 20 MG OR TB12 11/22/2011 - 12/02/2011 Provid er: Osvaldo Sorensen MD Diagnosis: sx 2-15-12//cr Last Documented On 2 10:00AM By Roseanne Barragan ; [facility] Naproxen 500 MG OR TABS 11/22/2011 - 12/07/2011 Provid er: Osvaldo Sorensen MD Diagnosis: sx 2-15-12//cr Last Documented On 2 10:00AM By Roseanne Barragan ; [facility] Lortab 7.5-500 MG OR TABS 07/29/2011 - 08/04/2011 Prov ider: Osvaldo Sorensen MD Diagnosis: [facility] [phone] Last Documented On 1 10:49AM By Stacey [...] 07-05-11//cr Last Documented On 1 1:16PM By Rosaenne Barragan ; [facility] Voltaren 50 [...] Vital Signs from this encounter Vital Name 08/13/2025 12:57P Height (in) 64 Weight (lb) 180 Body Mass Index 30.9 Body Surface Area 1.9 Note: LJ Last Documented: On 08/13/2025 12:58P M ; [facility] Results Includes: Results discussed during this encounter No Results Recorded For Specified Dates History of Present Illness Includes: History of Present Illness from this encounter HPI Mari Clark is a 64 year old female. - Symptoms better with staying off feet Worse with standing or walking. - Allergy list reviewed - Problem list reviewed - Medication list reviewed - Previous history of new onset pain 07/23/2025 Injury is not work related or an automotive accident - Pain is constant (100% of the time) - Pain is dull, aching - Patient pain level from 1-10: 9 - - Review of medications documented She presents today as a referral from Dr. Sorensen for left lower extremity pain. She has had an MRI which is available for my review. No direct injury, trauma, or fall contributing to her symptoms. The symptoms has been present and progressive over the last 3 weeks. She describes the pain primarily at the lateral aspect of the left lower leg. She denies any recent fever or infections. No history of diabetes. Her medical history is significant for severe osteoporosis and rheumatoid arthritis. Recently, the pain has been so severe she is unable to ambulate without significant pain. She is using a wheelchair at today's appointment. At baseline, she is able to ambulate with a walker or a cane. Social History Description Last Updated Caffeine use 02/10/2024 Last Documented On 5 12:57PM ; [facility] No recent change in diet 02/10/2024 Last Documented On 5 12:57PM ; [facility] Not a current smoker. 02/10/2024 Last Documented On 5 12:57PM ; [facility] Not exercising regularly 02/10/2024 Last Documented On 5 12:57PM ; [facility] Not using alcohol 02/10/2024 Last Documented On 5 12:57PM ; [facility] Not using drugs 02/10/2024 Last Documented On 5 12:57PM ; [facility] Tobacco non-user 02/09/2024 Last Documented On 5 12:57PM ; [facility] No tobacco use 06/19/2014 Last Documented On 5 12:57PM ; [facility] Smoking status : Never smoked/ Recode: 4 06/19/2014 Last Documented On 5 12:57PM ; [facility] Procedures and Surgical History Surgical History Last Updated History of History of Gallbladder 2023 Last Documented On 5 12:57PM ; [facility], [facility] Past Surgical History: total wrist, thum b fusion, finger joints 02/10/2024 Last Documented On 5 12:57PM ; [facility] Medical History Includes: Medical History addressed during this encounter Description Last Updated scleroderma, IBS 02/10/2024 Last Documented On 5 12:57PM ; [facility] History of arthritis 02/10/2024 Last Documented On 5 12:57PM ; [facility], [facility] History of asthma 02/10/2024 Last Documented On 5 12:57PM ; [facility] History of Fractures 02/10/2024 Last Documented On 5 12:57PM ; [facility] History of Heartburn / Acid Reflux 02/09 Last Documented On 5 12:57PM ; [facility] History of History of Rheumatology 02/09 Last Documented On 5 12:57PM ; [facility] History of Hypertension 02/10/2024 Last Documented On 5 12:57PM ; [facility] History of osteoporosis 02/10/2024 Last Documented On 5 12:57PM ; [facility], [facility] Family History Includes: Family History addressed during this encounter Description Last Updated Diabetes mellitus 02/10/2024 Last Documented On 5 12:57PM ; [facility] Family history of cancer 02/10/2024 Last Documented On 5 12:57PM ; [facility] Family history of osteoporosis 4 Last Documented On 5 12:57PM ; [facility] Family history of rheumatoid arthritis 0 02/10/2024 Last Documented On 5 12:57PM ; [facility] Family history of systemic hypertension 02/10/2024 Last Documented On 5 12:57PM ; [facility] Stroke / Seizures 02/10/2024 Last Documented On 5 12:57PM ; [facility] Review of Systems Includes: Review of [...] Active Last Documented On 5 12:57PM ; [facility] Encounters Encounter Provider Location Date Check-In Time Check-Out Time Diagnosis IN HOUSE REFERRAL Linda Oro PA-C [facility] 08/13/20 25 12:53PM 1:51PM Overweight Insurance Includes: Active Insurance Policies Plan Name Member ID Group # Subscriber Relationship Effect apryl Dates 1 - [employer] [id number] Mari Clark Imelda f Clinical Notes Includes: Clinical Notes from this encounter * Progress note Date Encounter Last Documented by 08/13/2025 IN HOUSE REFERRAL Last documente d on 08/13/2025; 3:05 PM, Linda Oro PA-C; [facility] Active Problems & Conditions - Bone Pain in Left Lower Leg - Joint Pain Hip - Joint Pain Shoulder - Joint Pain Wrist Right - Soft Tissue Pain Lower Leg Left Chief Complaint - L tib/fib pain Referred Here Referred by Edu. History of Present Illness Mari Clark is a 64 year old female. - Symptoms better with staying off feet Worse with standing or walking. - Allergy list reviewed - Problem list reviewed - Medication list reviewed - Previous history of new onset pain 07/23/2025 Injury is not work related or an automotive accident - Pain is constant (100% of the time) - Pain is dull, aching - Patient pain level from 1-10: 9 - - Review of medications documented She presents today as a referral from Dr. Sorensen for left lower extremity pain. She has had an MRI which is available for my review. No direct injury, trauma, or fall contributing to her symptoms. The symptoms has been present and progressive over the last 3 weeks. She describes the pain primarily at the lateral aspect of the left lower leg. She denies any recent fever or infections. No history of diabetes. Her medical history is significant for severe osteoporosis and rheumatoid arthritis. Recently, the pain has been so severe she is unable to ambulate without significant pain. She is using a wheelchair at today's appointment. At baseline, she is able to ambulate with a walker or a cane. Current Medication - Atorvastatin Calcium 20 MG Oral Tablet use as directed 0 days, 0 refills - busPIRone HCl 10 MG Oral Tablet 90 days, 0 refills - Clindamycin HCl 150 MG Oral Capsule 1 days, 0 refills - Famotidine 20 MG Oral Tablet take as directed 0 days, 0 refills - Folic Acid 1 MG Oral Tablet 90 days, 0 refills - Furosemide 40 MG Oral Tablet 90 days, 0 refills - Lisinopril 10 MG Oral Tablet 90 days, 0 refills - Loratadine 10 MG Oral Tablet use as directed 0 days, 0 refills - Methotrexate 125 MG/5ML Intramuscular Solution Prefilled Syringe use as directed 0 days, 0 refills - Metoclopramide HCl 10 MG Oral Tablet 90 days, 0 refills - Montelukast Sodium 10 MG Oral Tablet 90 days, 0 refills - Montelukast Sodium 10 MG Oral Tablet 90 days, 0 refills - Omeprazole 40 MG Oral Capsule Delayed Release 90 days, 0 refills - predniSONE 5 MG Oral Tablet 90 days, 0 refills - Prolia 60 MG/ML Subcutaneous Solution Prefilled Syringe use as directed 0 days, 0 refills - Symbicort 160-4.5 MCG/ACT Inhalation Aerosol use as directed 0 days, 0 refills - Verapamil HCl 80 [...] exercising regularly. Allergies - Penicillins Family History Malignant neoplasm Stroke / Seizures Diabetes mellitus Systemic hypertension [...] allergic reaction. Physical Findings - Vitals taken 08/13/2025 12:57 pm LJ Height 64 in Weight 180 lbs Body Mass Index 30.9 kg/m2 Body Surface Area 1.9 m2 The patient is well dressed and groomed. They have normal mood and affect. She is sitting in a wheelchair. The left lower leg has normal alignment. The skin over the left lower leg is intact. There is skin discoloration of the left lower extremity which could be consistent with chronic venous stasis. There is localized soft tissue swelling of the left lateral lower extremity There is no tenderness of the lateral aspect of the left lower leg. Left knee and ankle I have no pain with gentle active range of motion. Grossly normal motor and sensory function. Grossly normal vascular status. No calf tenderness. Tests MRI of the left lower extremity shows focal marrow edema distal fibular diaphysis with extensive surrounding soft tissue edema with a differential that favors osteomyelitis and surrounding myositis without abscess at this time. Previous two-view radiographs of the tib-fib show no obvious acute osseous abnormality. Assessment - Overweight Counseling/Education - Tobacco non-user - Use of tobacco assessment performed - Lose weight Plan StartCited - Pain in left leg Lab: CBC With Differential/Platelet Lab: Erythrocyte Sedimentation Rate Lab: C-Reactive Protein, Quant EndCited I have reviewed the available imaging and physical exam findings with the patient and her family member at today's appointment. I have also reviewed these with Dr. Patiño who is in agreement with the plan as outlined below. We will order a stat CT scan of the left lower extremity in addition to a total body bone scan with emphasis on the left lower extremity. Additionally, we will order blood work including a CBC, ESR, and CRP. I will follow up with her after these imaging studies have been performed. Should the patient develop a fever or constitutional symptoms concerning for infection she will present to an emergency department. I will otherwise plan to follow up with her after the imaging studies. She and her family member are very comfortable with this plan and will call our office with any questions or concerns. Notes This dictation was done with voice recognition software and may contain errors and omissions. Care Team - LONNIE SOLANO - GAMING DEALER
--- OUTSIDE RECORDS SUMMARY | 2025-08-16 07:29 | XMS_ITS | Clinical Summary ---
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 Role Phone Osvaldo Sorensen MD Unavailable [phone] LONNIE SOLANO Primary Care Provider [phone] Reason for Visit and Chief Complaint The Chief Complaint is: R wrist pain Problems Includes: Problems addressed during this encounter and other active Problems All Visits Onset Date Resolved Date Provider Condition S tatus Bone Pain in Left Lower Leg 08/13/2025 Linda Oro PA-C Active Last Documented On 5 1:42PM ; [facility], [facility] Soft Tissue Pain Lower Leg Left 08/13/2025 Blu Oro PA-C Active Last Documented On 5 1:44PM ; [facility], [facility] Joint Pain Wrist Right 02/09/2024 Michell douglass APRN Active Last Documented On 4 10:10AM ; [facility], [facility] Joint Pain Shoulder 10/17/2012 Osvaldo olson MD Active Last Documented On 3 12:57PM ; [facility] Joint Pain Hip 09/26/2012 Faustino Slater MD Ac tive Last Documented On 2 1:28PM ; [facility], [facility] Plan of Treatment Pending Tests Order Diagnosis Results Due Ordering P rovider Radiology - MRI MRI Tib/Fib Pain in left leg 08/22/25 Laura Sorensen MD Last Documented On 12:30PM ; [facility], [facility] Future Appointments Date Time Location Provi evonne Outside Test 08/16/2025 9:45AM [facility] Last Documented On 10:07AM ; [facility], [facility] Follow Up 08/19/2025 1:00PM [facility] Linda Oro PA-C Last Documented On 10:04AM ; [facility], [facility] Instructions to patient Lose weight Last Documented On 1:58PM ; [facility], [facility] Assessments Includes: Assessments from this encounter Findings - Overweight - Last Documented On 01/23/2025 11:42AM ; [facility], [facility] Instructions Includes: Instructions from this encounter Instructions to patient Lose weight Last Documented On 1:58PM ; [facility], [facility] Medical Equipment - Implanted Devices Includes: Current Devices No Medical Equipment Recorded Medications Includes: Medications discussed during this encounter and other current Medications Current Medications (continue as prescribed) Loratadine 10 MG Oral Tablet 08/09/2025 Provider: Diagnosis: Last Documented On 1:21PM By Lita [facility] Famotidine 20 MG Oral Tablet 08/09/2025 Provider: Diagnosis: Last Documented On 1:21PM By Lita GARAY, [facility] Symbicort 160-4.5 MCG/ACT Inhalation Aerosol Provider: Diagnosis: Last Documented On 1:20PM By Lita GARAY, [facility] Prolia 60 MG/ML Subcutaneous Solution Prefilled Syring e 08/09/2025 Provider: Diagnosis: Last Documented On 1:22PM By Lita GARAY [facility] Atorvastatin Calcium 20 MG Oral Tablet 08/09/2025 Pr ovider: Diagnosis: Last Documented On 1:21PM By Lita GARAY [facility] Methotrexate 125 MG/5ML Intr amuscular Solution Prefilled Syringe 08/09/2025 Provider: Diagnosis: Last Documented On 1:19PM By Lita Karbo ; [facility] Clindamycin HCl 150 MG Oral Capsule 08/05/2025 Provi evonne: Diagnosis: Last Documented On 11:17AM By Shila Steiner ; [facility] Montelukast Sodium 10 MG Oral Tablet 08/02/2025 Prov ider: LONNIE MULBERRY Diagnosis: Last Documented On 1:20PM By Lita Barrera ; [facility] Montelukast Sodium 10 MG Oral Tablet 08/02/2025 Prov ider: LONNIE MULBERRY Diagnosis: Last Documented On 11:17AM By Shila Steiner ; [facility] Folic Acid 1 MG Oral Tablet 07/31/2025 Provider: Dagmar Lundberg MD Diagnosis: Last Documented On 11:17AM By Shila Steiner ; [facility] predniSONE 5 MG Oral Tablet 07/31/2025 Provider: Dagmar Lundberg MD Diagnosis: Last Documented On 1:20PM By Lita Barrera ; [facility] Furosemide 40 MG Oral Tablet 07/09/2025 Provider: LONNIE MULBERRY Diagnosis: Last Documented On 11:17AM By Shila Steiner ; [facility] Metoclopramide HCl 10 MG Oral Tablet 07/09/2025 Prov ider: LONNIE MULBERRY Diagnosis: Last Documented On 11:17AM By Shila Steiner ; [facility] Omeprazole 40 MG Oral Capsule Delayed Release 07/09/20 Provider: LONNIE MULBERRY Diagnosis: Last Documented On 11:17AM By Shila Steiner ; [facility] busPIRone HCl 10 MG Oral Tablet 07/09/2025 Provider: LONNIE MULBERRY Diagnosis: Last Documented On 1:20PM By Lita Barrera ; [facility] Lisinopril 10 MG Oral Tablet 06/15/2025 Provider: LONNIE MULBERRY Diagnosis: Last Documented On 11:17AM By Shila Steiner ; [facility] Verapamil HCl 80 MG Oral Tablet 06/15/2025 Provider: LONNIE SOLANO Diagnosis: Last Documented On 11:17AM By Shila Steiner ; [facility], [facility] Past Medications on file Magic Mouthwash (L/N/B/M) Oral Solution 11/20/2024 - 11/26/2024 Provider: Osvaldo olson MD Diagnosis: swish, gargle spit 1-2 teasp oons (5-10 mL) every 4-6 hours as needed Last Documented On 5 10:33AM By Dr. Sorensen ; [facility], [facility] HYDROcodone-Acetaminophen 7. 5-325 MG Oral Tablet 11/12/2024 - 11/15/2024 Provider: Osvaldo Sorensen MD Diagnosis: 1 tab every 6 hrs prn pain Last Documented On 12:55PM By Dr. Sorensen ; [facility], [facility] Vitamin C 1000 MG Oral Tablet 11/12/2024 - 01/11/2025 Provider: Osvaldo olson MD Diagnosis: once a day take 1 tablet once daily post surgery Last Documented On 12:55PM By Lita Barrera ; [facility], [facility] Naproxen 500 MG Oral Tablet 11/12/2024 - 12/12/2024 Pr ovider: Osvaldo Sorensen MD Diagnosis: take one tablet twice a day prn following surger y Last Documented On 12:55PM By Lita Barrera ; [facility], [facility] Vitamin C 1000 MG Oral Tablet 08/03/2024 - 10/02/2024 Provider: Osvaldo olson MD Diagnosis: once a day take 1 tablet once daily post surgery Last Documented On 4 9:39AM By Lita Barrera ; [facility], [facility] Naproxen 500 MG Oral Tablet 08/03/2024 - 09/02/2024 Pr ovider: Osvaldo Sorensen MD Diagnosis: take one tablet twice a day prn following surger y Last Documented On 4 9:39AM By Lita Barrera ; [facility], [facility] Buford 5-325 MG OR TABS 06/19/2014 - 07/19/2014 Provider: Jose Long MD Diagnosis: DEGENERATIVE MARY NT DISEASE KNEE Last Documented On 4 3:42PM By Rome Marinelli User ; [facility] Lortab 7.5-500 MG OR TABS 10/17/2012 - 10/22/2012 Prov ider: Osvaldo Sorensen MD Diagnosis: sx 1 //cr Last Documented On 3 1:15PM By Roseanne Vanderbilt ; [facility] Naproxen 500 MG OR TABS 10/17/2012 - 11/01/2012 Provid er: Osvaldo Sorensen MD Diagnosis: sx 10-18-12 //cr Last Documented On 3 1:15PM By Roseanne Barragan ; [facility] Lortab 7.5-500 MG OR TABS 11/22/2011 - 12/02/2011 Prov ider: Osvaldo Sorensen MD Diagnosis: sx 11-24-//cr Last Documented On 2 10:00AM By Roseanne Barragan ; [facility] OxyCONTIN 20 MG OR TB12 11/22/2011 - 12/02/2011 Provid er: Osvaldo Sorensen MD Diagnosis: sx 11-24-11//cr Last Documented On 2 10:00AM By Roseanne Barragan ; [facility] Naproxen 500 MG OR TABS 11/22/2011 - 12/07/2011 Provid er: Osvaldo Sorensen MD Diagnosis: sx 11-24-11//cr Last Documented On 2 10:00AM By Roseanne Barragan ; [facility] Lortab 7.5-500 MG OR TABS 07/29/2011 - 08/04/2011 Prov ider: Osvaldo Sorensen MD Diagnosis: [facility] [phone] Last Documented On 1 10:49AM By Stacey [...] On 8 10:40AM By Nikky Andrews ; [facility] OxyCONTIN 20 MG OR TB12 08/07/2008 - 08/21/2008 Provid er: Osvaldo Sorensen MD Diagnosis: cb Last Documented On 8 10:34AM By Nikky Andrews ; [facility] Medications Administered Includes: Administered Medications from this encounter No Administered Medications Recorded Vital Signs Includes: Vital Signs from this encounter Vital Name 01/22/2025 01:58P Height (in) 64 Weight (lb) 175 Body Mass Index 30 Body Surface Area 1.8 Note: ah Last Documented: On 01/22/2025 1:58PM ; [facility] Results Includes: Results discussed during [...] Last Documented On 5 1:58PM ; [facility] No recent change in diet 02/10/2024 Last Documented On 5 1:58PM ; [facility] Not a current smoker. 02/10/2024 Last Documented On 5 1:58PM ; [facility] Not exercising regularly 02/10/2024 Last Documented On 5 1:58PM ; [facility] Not using alcohol 02/10/2024 Last Documented On 1:58PM ; [facility] Not using drugs 02/10/2024 Last Documented On 5 1:58PM ; [facility] Tobacco non-user 02/09/2024 Last Documented On 5 1:58PM ; [facility] No tobacco use 06/19/2014 Last Documented On 5 1:58PM ; [facility], [facility] Smoking status : Never smoked/ Recode: 4 06/19/2014 Last Documented On 5 1:58PM ; [facility], [facility] Procedures and Surgical History Includes: Procedures from this encounter Procedures Code Diagnosis Performing Provider Service Location Service Date X-RAY EXAM OF HAND 3 VIEWS (RIGHT) 80875 Other specified rheumatoid arthritis, right hand [facility] 01/22/2025 Last Documented On 5 10:19AM ; [facility], [facility] brace Last Documented On 5 1:58PM ; [facility], [facility] Surgical History Last Updated History of History of Gallbladder 2023 Last Documented On 5 1:58PM ; [facility] Past Surgical History: total wrist, thum b fusion, finger joints 02/10/2024 Last Documented On 5 1:58PM ; [facility] Medical History Includes: Medical History addressed during this encounter Description Last Updated scleroderma, IBS 02/10/2024 Last Documented On 5 1:58PM ; [facility], [facility] History of arthritis 02/10/2024 Last Documented On 5 1:58PM ; [facility], [facility] History of asthma 02/10/2024 Last Documented On 5 1:58PM ; [facility], [facility] History of Fractures 02/10/2024 Last Documented On 5 1:58PM ; [facility], [facility] History of Heartburn / Acid Reflux 02/09 Last Documented On 5 1:58PM ; [facility], [facility] History of History of Rheumatology 02/09 Last Documented On 5 1:58PM ; [facility], [facility] History of Hypertension 02/10/2024 Last Documented On 5 1:58PM ; [facility], [facility] History of osteoporosis 02/10/2024 Last Documented On 5 1:58PM ; [facility], [facility] Family History Includes: Family History addressed during this encounter Description Last Updated Diabetes mellitus 02/10/2024 Last Documented On 5 1:58PM ; [facility], [facility] Family history of cancer 02/10/2024 Last Documented On 5 1:58PM ; [facility], [facility] Family history of osteoporosis 4 Last Documented On 5 1:58PM ; [facility], [facility] Family history of rheumatoid arthritis 0 02/10/2024 Last Documented On 5 1:58PM ; [facility], [facility] Family history of systemic hypertension 02/10/2024 Last Documented On 5 1:58PM ; [facility], [facility] Stroke / Seizures 02/10/2024 Last Documented On 5 1:58PM ; [facility], [facility] Review of Systems Includes: Review [...] Active Last Documented On 5 12:57PM ; [facility] Encounters Encounter Provider Location Date Check-In Time Check-Out Time Diagnosis Post Op Osvaldo Sorensen MD [facility] 5 1:56PM 3:19PM Overweight Insurance Includes: Active Insurance Policies Plan Name Member ID Group # Subscriber Relationship Effect apryl Dates - [employer] [id number] Mari Clark Imelda elo Clinical Notes Includes: Clinical Notes from this encounter * Progress note Date Encounter Last Documented by 01/22/2025 Post Op Last documented on 01/23/2025; 11:42 AM, Osvaldo Sorensen MD; [facility] Active Problems & Conditions - [...] weight Care Team - LONNIE SOLANO - 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
--- OUTSIDE RECORDS SUMMARY | 2025-08-16 07:29 | XMS_ITS | Clinical Summary ---
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 Name Role Phone Unavailable Primary Care Provider [...] 03/18/2013 03/18/2008, 02/07, 02/05/2005, Additional history exists [id number] Vaccine (2024- season) 2025 06/08/2021, 01/09/2021, 12/12/2020 [...] Narrative SUNQUEST - 03/21/2008 3:01 PM EDT [facility] MR #: [id number] [facility] [place] [id number] (Age: 47) FU Collect Date: 03/18/2008 00:00 Receipt Date: 03/19/2008 10:07 Page 1 DEPARTMENT OF PATHOLOGY AND LABORATORY MEDICINE CYTOPATHOLOGY REPORT Email: [phone] ATTENDING MD/Practitioner: Emma Ochoa MD Service: [facility] [place] [place] Location: [facility] Reported: 03/21/2008 15:01 Collected: 03/18/2008 00:00 INTERPRETATION A. THIN PREP (CERVICAL/VAGINAL): NEGATIVE FOR INTRAEPITHELIAL LESION OR MALIGNANCY. SATISFACTORY FOR EVALUATION; TRANSFORMATION ZONE COMPONENT CANNOT BE DEFINITIVELY IDENTIFIED DUE TO THE PRESENCE OF ATROPHY OR OTHER HORMONAL CHANGES. Slide scanned and imaged by [employer] ThinPrep Imaging System with manual review of [...] results is suggested (please call Microbiology at [phone] for results). CLINICAL INFORMATION: Menstrual History: Postmenopausal Date of Last Menstrual Period: {Not Provided} Other Clinical Conditions: If ASCUS and > 24 years of age, HPV/DNA testing requested. SPECIMEN DESCRIPTION: A: THIN PREP (CERVICAL/VAGINAL) THIN PREP PROCESS CELLULAR ENHANCEMENT ICD: V76.2 CERVIX, SPECIAL SCREENING FOR MALIGNANT NEOPLASM F: A; RT IMAGE [id number] SNOMED CODES: A; [id number] In cases where a pathologist has signed out the report, the service has been rendered in part by a resident. The signing pathologist has performed and is responsible for the reported pathologic evaluation. us Historical Provider LAB PATHOLOGY ORDERABLES Fin al Result [employer] from Last 3 Months or Most Recently Relevant to Health Maintenance
--- OUTSIDE RECORDS SUMMARY | 2025-08-16 07:29 | XMS_ITS ---
Author Organization [facility], [facility] Address [address] [place] [address] Phone Care Team Providers Care [employer] Name Role Phone Osvaldo Sorensen MD Unavailable [phone] LONNIE SOLANO Primary Care Provider [phone] Problems Includes: Active, inactive, and resolved Problems All Visits Onset Date Resolved Date Provider Condition S tatus Bone Pain in Left Lower Leg 08/13/2025 Linda Oro PA-C Active Last Documented On 5 1:42PM ; [facility] Soft Tissue Pain Lower Leg Left 08/13/2025 Blu Oro PA-C Active Last Documented On 5 1:44PM ; [facility] Joint Pain Wrist Right 02/09/2024 Michell douglass APRN Active Last Documented On 4 10:10AM ; [facility] Joint Pain Shoulder 10/17/2012 Osvaldo olson MD Active Last Documented On 3 12:57PM ; [facility] Joint Pain Hip 09/26/2012 Chelsea Slater MD Ac tive Last Documented On 2 1:28PM ; [facility], [facility] Plan of Treatment Findings Encounter Date Patient screened for future fall risk: documentation of any fall with injury in past year Follow Up with Osvaldo Sorensen MD 04/05/2024 Last Documented On 4 4:20PM ; [facility] Ordered weight loss diet Follow Up with Jose Long MD 05/14/2013 Last Documented On 4 2:18PM ; [facility] Ordered weight loss diet Post Op with Osvaldo Sorensen MD 11/30/2012 Last Documented On 3 11:34AM ; [facility] Ordered weight loss diet Follow Up with Chelsea saenz MD 09/26/2012 Last Documented On 3 3:21PM ; [facility] Ordered weight loss diet NEW PROBLEM/EST PT with Chelsea Slater MD 08/22/2012 Last Documented On 3 3:21PM ; [facility] Pending Tests Order Diagnosis Results Due Ordering P rovider Radiology - MRI MRI Tib/Fib Pain in left leg 08/22/25 Laura Sorensen MD Last Documented On 5 12:30PM ; [facility] Future Appointments Date Time Location Provi evonne Outside Test 08/16/2025 9:45AM [facility] Last Documented On 5 10:07AM ; [facility] Follow Up 08/19/2025 1:00PM [facility] Chuy Oro PA-C Last Documented On 5 10:04AM ; [facility] Instructions to patient Lose weight Last Documented On 5 1:30PM ; [facility] Lose weight Last Documented On 5 9:27AM ; [facility] Lose weight Last Documented On 5 11:18AM ; [facility] Lose weight Last Documented On 5 1:58PM ; [facility] Lose weight Last Documented On 5 10:25AM ; [facility] Lose weight Last Documented On 5 1:13PM ; [facility] Lose weight Last Documented On 4 11:22AM ; [facility] Lose weight Last Documented On 4 1:29PM ; [facility] Lose weight Last Documented On [...] all patient encounters Findings Encounter Date Overweight IN HOUSE REFERRAL with Linda Oro PA-C 08/13/2025 Last Documented On 5 3:05PM ; [facility] Overweight Follow Up [...] patient Lose weight Last Documented On 5 1:30PM ; [facility] Lose weight Last Documented On 5 9:27AM [...] Documented On 3 1:31PM ; [facility] No intervention and counseli ng on cessation of tobacco use Last Documented On 3 11:03AM ; [facility] Instructions for patient Last Documented On 2 1:29PM ; [facility] Lose weight Last Documented On 2 1:29PM ; [facility] Instructions for patient Last Documented On 2 11:08AM ; [facility] Lose weight Last Documented On 2 11:08AM ; [facility] Education and Decision Aids were provided during visit for: Education and counseling Last Documented On 0 9:29AM ; [facility] The patient will lose weight Last Documented On 0 9:29AM ; [facility] Education and counseling Last Documented On 0 1:20PM ; [facility] The patient will lose weight Last Documented On 0 1:20PM ; [facility] Education and counseling Last Documented On 4 3:19PM ; [facility] The patient will lose weight Last Documented On 4 3:19PM ; [facility] Education and counseling Last Documented On 3 11:15AM ; [facility] The patient will lose weight Last Documented On 3 11:15AM ; [facility] Education and counseling Last Documented On 3 1:31PM ; [facility], [facility] Medical Equipment - Implanted Devices Includes: Current and historical Devices No Medical Equipment Recorded Medications Includes: Current and historical Medications Current Medications (continue as prescribed) Loratadine 10 MG Oral Tablet 08/09/2025 Provider: Diagnosis: Last Documented On 5 1:21PM By Lita Barrera ; [facility] Famotidine 20 MG Oral Tablet 08/09/2025 Provider: Diagnosis: Last Documented On 5 1:21PM By Lita Barrera ; [facility] Symbicort 160-4.5 MCG/ACT Inhalation Aerosol 5 Provider: Diagnosis: Last Documented On 5 1:20PM By Lita Barrera ; [facility] Prolia 60 MG/ML Subcutaneous Solution Prefilled Syring e 08/09/2025 Provider: Diagnosis: Last Documented On 1:22PM By Lita Barrera ; [facility] Atorvastatin Calcium 20 MG Oral Tablet 08/09/2025 Pr ovider: Diagnosis: Last Documented On 1:21PM By Lita Barrera ; [facility] Methotrexate 125 MG/5ML Intr amuscular Solution Prefilled Syringe 08/09/2025 Provider: Diagnosis: Last Documented On 1:19PM By Lita Barrera ; [facility] Clindamycin HCl 150 MG Oral Capsule 08/05/2025 Provi evonne: Diagnosis: Last Documented On 11:17AM By Shila Steiner ; [facility] Montelukast Sodium 10 MG Oral Tablet 08/02/2025 Prov ider: LONNIE SOLANO Diagnosis: Last Documented On 1:20PM By Lita Barrera ; [facility] Montelukast Sodium 10 MG Oral Tablet 08/02/2025 Prov ider: LONNIE MULBERRY Diagnosis: Last Documented On 11:17AM By Shila Steiner ; [facility] Folic Acid 1 MG Oral Tablet 07/31/2025 Provider: Dagmar Lundberg MD Diagnosis: Last Documented On 11:17AM By Shila Steiner ; [facility] predniSONE 5 MG Oral Tablet 07/31/2025 Provider: Dagmar Ludnberg MD Diagnosis: Last Documented On 1:20PM By Lita Barrera ; [facility] Furosemide 40 MG Oral Tablet 07/09/2025 Provider: LONNIE SOLANO Diagnosis: Last Documented On 11:17AM By Shila Steiner ; [facility] Metoclopramide HCl 10 MG Oral Tablet 07/09/2025 Prov ider: LONNIE MULBERRY Diagnosis: Last Documented On 11:17AM By Shila Steiner ; [facility] Omeprazole 40 MG Oral Capsule Delayed Release 07/09/20 Provider: LONNIE KIRANGLO Diagnosis: Last Documented On 11:17AM By Shila Steiner ; [facility] busPIRone HCl 10 MG Oral Tablet 07/09/2025 Provider: LONNIE SOLANO Diagnosis: Last Documented On 1:20PM By Lita Barrera ; [facility] Lisinopril 10 MG Oral Tablet 06/15/2025 Provider: LONNIE SOLANO Diagnosis: Last Documented On 11:17AM By Shila Steiner ; [facility] Verapamil HCl 80 MG Oral Tablet 06/15/2025 Provider: LONNIE SOLANO Diagnosis: Last Documented On 11:17AM By Shila Steiner ; [facility] Past Medications on file Azithromycin 250 MG Oral Tablet 06/24/2025 - Provider: LONNIE SOLANO Diagnosis: Last Documented On 1:19PM By Lita Barrera ; [facility] Fluconazole 100 MG Oral Tablet 06/15/2025 - 08/09/2025 Provider: Diagnosis: Last Documented On 1:19PM By Lita Barrera ; [facility] Cefdinir 300 MG Oral Capsule 06/14/2025 - 08/08/2025 P sawder: LONNIE BECKGLO Diagnosis: Last Documented On 11:17AM By Shila Steiner ; [facility] Fluticasone Propionate 50 MC G/ACT Nasal Suspension 04/02/2025 - 08/08/2025 Provider: LONNIE SOLANO Diagnosis: Last Documented On 11:16AM By Shila Steiner ; [facility] Fluconazole 100 MG Oral Tablet 04/01/2025 - 08/08/2025 Provider: Diagnosis: Last Documented On 11:16AM By Shila Steiner ; [facility] Albuterol Sulfate HFA 108 (9 0 Base) MCG/ACT Inhalation Aerosol Solution 03/11/2025 - 08/08/2025 Provider: Diagnosis: Last Documented On 11:16AM By Shila Steiner ; [facility] Nystatin [id number] UNIT/ML Mouth/Throat Suspension 02/14/2025 - 08/08/2025 Provider: Diagnosis: Last Documented On 5 11:16AM By Shila Steiner ; [facility], [facility] busPIRone HCl 10 MG Oral Tablet 02/11/2025 - Provider: LONNIE SOLANO Diagnosis: Last Documented On 5 11:16AM By Shila Steiner ; [facility] Omeprazole 40 MG Oral Capsul e Delayed Release 02/11/2025 - 08/08/2025 Provider: LONNIE SOLANO Diagnosis: Last Documented On 5 11:16AM By Shila Steiner ; [facility] predniSONE 5 MG Oral Tablet 02/08/2025 - 08/08/2025 Pr ovider: Dagmar Lundberg MD Diagnosis: Last Documented On 5 11:16AM By Shila Steiner ; [facility] Folic Acid 1 MG Oral Tablet 02/08/2025 - 08/08/2025 Pr ovider: Dagmar Lundberg MD Diagnosis: Last Documented On 5 11:16AM By Shila Steiner ; [facility] Methotrexate Sodium 2.5 MG O ral Tablet 02/08/2025 - 08/08/2025 Provider: Dagmar Lundberg MD Diagnosis: Last Documented On 5 11:16AM By Shila Steiner ; [facility] Magic Mouthwash (L/N/B/M) Oral Solution 11/20/2024 - 11/26/2024 Provider: Osvaldo olson MD Diagnosis: swish, gargle spit 1-2 teasp oons (5-10 mL) every 4-6 hours as needed Last Documented On 5 10:33AM By Dr. Sorensen ; [facility] HYDROcodone-Acetaminophen 7. 5-325 MG Oral Tablet 11/12/2024 - 11/15/2024 Provider: Osvaldo Sorensen MD Diagnosis: 1 tab every 6 hrs prn pain Last Documented On 5 12:55PM By Dr. Sorensen ; [facility], [facility] Vitamin C 1000 MG Oral Tablet 11/12/2024 - 01/11/2025 Provider: Osvaldo olson MD Diagnosis: once a day take 1 tablet once daily post surgery Last Documented On 12:55PM By Lita Barrera ; [facility], [facility] Naproxen 500 MG Oral Tablet 11/12/2024 - 12/12/2024 Pr ovider: Osvaldo Sorensen MD Diagnosis: take one tablet twice a day prn following surger y Last Documented On 12:55PM By Lita Barrera ; [facility] Atorvastatin Calcium 40 MG Oral Tablet 10/21/2024 - 08/08/2025 Provider: CHELSEA MICHELE MD Diagnosis: Last Documented On 11:16AM By Shila Steiner ; [facility] predniSONE 5 MG Oral Tablet 10/19/2024 - 08/08/2025 Pr ovider: Dagmar Lundberg MD Diagnosis: Last Documented On 11:16AM By Shila Steiner ; [facility] Azithromycin 250 MG Oral Tablet 10/09/2024 - 08/08/2025 Provider: Paulette montana APRN Diagnosis: Last Documented On 11:16AM By Shila Steiner ; [facility] Symbicort 80-4.5 MCG/ACT Inh alation Aerosol 10/05/2024 - 08/08/2025 Provider: LONNIE SOLANO Diagnosis: Last Documented On 11:16AM By Shila Steiner ; [facility] Verapamil HCl 80 MG Oral Tablet 09/13/2024 - 08/08/2025 Provider: CHELSEA MICHELE MD Diagnosis: Last Documented On 11:16AM By Shila Steiner ; [facility] Metoclopramide HCl 10 MG Oral Tablet 09/13/2024 - 07/12 Provider: LONNIE SOLANO Diagnosis: Last Documented On 11:16AM By Shila Steiner ; [facility] Montelukast Sodium 10 MG Oral Tablet 09/13/2024 - 08/08/2025 Provider: CHELSEA MICHELE MD Diagnosis: Last Documented On 11:16AM By Shila Steiner ; [facility] Lisinopril 10 MG Oral Tablet 09/13/2024 - 08/08/2025 P rovider: CHELSEA FORDE MD Diagnosis: Last Documented On 11:16AM By Shila Steiner ; [facility] Furosemide 40 MG Oral Tablet 09/13/2024 - 08/08/2025 P rovider: LONNIE SOLANO Diagnosis: Last Documented On 11:16AM By Shila Steiner ; [facility] Vitamin C 1000 MG Oral Tablet 08/03/2024 - 10/02/2024 Provider: Osvaldo olson MD Diagnosis: once a day take 1 tablet once daily post surgery Last Documented On 9:39AM By Lita Barrera ; [facility] Naproxen 500 MG Oral Tablet 08/03/2024 - 09/02/2024 Pr ovider: Osvaldo Sorensen MD Diagnosis: take one tablet twice a day prn following surger y Last Documented On 9:39AM By Lita Barrera ; [facility] busPIRone HCl 10 MG Oral Tablet 02/06/2024 - Provider: LONNIE SOLANO Diagnosis: Last Documented On 1:13PM By Addison Preston ; [facility] Verapamil HCl 80 MG Oral Tablet 02/06/2024 - 11/01/2024 Provider: CHELSEA MICHELE MD Diagnosis: Last Documented On 1:12PM By Addison Preston ; [facility] Omeprazole 40 MG Oral Capsul e Delayed Release 02/06/2024 - 11/01/2024 Provider: LONNIE SOLANO Diagnosis: Last Documented On 1:12PM By Addison Preston ; [facility] Montelukast Sodium 10 MG Oral Tablet 02/06/2024 - 11/01/2024 Provider: CHELSEA MICHELE MD Diagnosis: Last Documented On 1:12PM By Addison Preston ; [facility] Metoclopramide HCl 10 MG Oral Tablet 02/06/2024 - 10/11 Provider: LONNIE SOLANO Diagnosis: Last Documented On 1:12PM By Addison Preston ; [facility] Lisinopril 10 MG Oral Tablet 02/06/2024 - 11/01/2024 P rovider: CHELSEA FORDE MD Diagnosis: Last Documented On 1:12PM By Addison Preston ; [facility] Furosemide 40 MG Oral Tablet 02/06/2024 - 11/01/2024 P jhoanavider: LONNIE SOLANO Diagnosis: Last Documented On 1:13PM By Addison Preston ; [facility] Atorvastatin Calcium 40 MG Oral Tablet 12/22/2023 - 11/01/2024 Provider: CHELSEA MICHELE MD Diagnosis: Last Documented On 1:12PM By Addison Preston ; [facility] Fluticasone Propionate 50 MC G/ACT Nasal Suspension 12/16/2023 - 11/01/2024 Provider: LONNIE SOLANO Diagnosis: Last Documented On 1:12PM By Addison Preston ; [facility] Methotrexate Sodium 2.5 MG O ral Tablet 12/16/2023 - 11/01/2024 Provider: Dagmar Lundberg MD Diagnosis: Last Documented On 1:12PM By Addison Preston ; [facility] predniSONE 5 MG Oral Tablet 12/16/2023 - 11/01/2024 Pr ovider: Dagmar Lundberg MD Diagnosis: Last Documented On 1:12PM By Addison Preston ; [facility] Folic Acid 1 MG Oral Tablet 12/16/2023 - 11/01/2024 Pr ovider: Dagmar Lundberg MD Diagnosis: Last Documented On 1:12PM By Addison Preston ; [facility] Montelukast Sodium 10 MG Oral Tablet 11/29/2023 - 11/01/2024 Provider: CHELSEA MICHELE MD Diagnosis: Last Documented On 5 1:12PM By Addison Preston ; [facility] Symbicort 80-4.5 MCG/ACT Inh alation Aerosol 11/30/2019 - 02/09/2024 Provider: LONNIE KIRANGLO Diagnosis: Last Documented On 4 10:10AM By Cecilia Moise ; [facility] Omeprazole 40 MG Oral Capsul e Delayed Release 11/20/2019 - 02/09/2024 Provider: LONNIE BECKLGO Diagnosis: Last Documented On 4 10:10AM By Cecilia Moise ; [facility] Furosemide 40 MG Oral Tablet 11/19/2019 - 02/09/2024 P rovider: LONNIE SOLANO Diagnosis: Last Documented On 4 10:10AM By Cecilia Moise ; [facility] Metoclopramide HCl 10 MG Oral Tablet 11/19/2019 - 11/2023 Provider: LONNIE BECKBERRY Diagnosis: Last Documented On 4 10:10AM By Cecilia Moise ; [facility] busPIRone HCl 10 MG Oral Tablet 11/19/2019 - 4 Provider: LONNIE BECKBERRY Diagnosis: Last Documented On 4 10:10AM By Cecilia Moise ; [facility] Lisinopril 10 MG Oral Tablet 11/19/2019 - 02/09/2024 P rovider: LONNIE BECKBERRY Diagnosis: Last Documented On 4 10:10AM By Cecilia Moies ; [facility] Verapamil HCl 80 MG Oral Tablet 11/19/2019 - 4 Provider: LONNIE MULBERRY Diagnosis: Last Documented On 4 10:10AM By Cecilia Moise ; [facility] Montelukast Sodium 10 MG Oral Tablet 11/19/2019 - 11/2023 Provider: LONNIE BECKGLO Diagnosis: Last Documented On 4 10:10AM By Cecilia Moise ; [facility] Atorvastatin Calcium 20 MG O ral Tablet 11/19/2019 - 02/09/2024 Provider: LONNIE SOLANO Diagnosis: Last Documented On 4 10:10AM By Cecilia Moise ; [facility] Folic Acid 1 MG Oral Tablet 11/19/2019 - 02/09/2024 Pr ovider: LONNIE SOLANO Diagnosis: Last Documented On 4 10:10AM By Cecilia Moise ; [facility] Methotrexate 2.5 MG Oral Tablet 10/30/2019 - 02/09/2024 Provider: Sima Vazquez APRN Diagnosis: Last Documented On 4 10:10AM By Cecilia Moise ; [facility] predniSONE 5 MG Oral Tablet 10/30/2019 - 02/09/2024 Pr ovider: Sima Vazquez APRN Diagnosis: Last Documented On 4 10:10AM By Cecilia Moise ; [facility] Atorvastatin Calcium 10 MG OR TABS 06/19/2014 - 2019 Provider: Diagnosis: Last Documented On 0 1:20PM By Lita Barrera ; [facility] [place] 5-325 MG OR TABS 06/19/2014 - 07/19/2014 Provider: Jose Long MD Diagnosis: DEGENERATIVE MARY NT DISEASE KNEE Last Documented On 4 3:42PM By [place] 5 User ; [facility] Lortab 7.5-500 MG OR TABS 10/17/2012 - 10/22/2012 Prov ider: Osvaldo Sorensen MD Diagnosis: sx 10-18-12cr Last Documented On 3 1:15PM By Roseanne Barragan ; [facility] Naproxen 500 MG OR TABS 10/17/2012 - 11/01/2012 Provid er: Osvaldo Sorensen MD Diagnosis: sx 10-18-12cr Last Documented On 3 1:15PM By Roseanne Barragan ; [facility] Pepcid 20 MG OR TABS 08/22/2012 - 12/26/2019 Provider: Diagnosis: patient takes 10mg Last Documented On 0 1:20PM By Lita Barrera ; [facility] Furosemide 40 MG OR TABS 08/22/2012 - 12/26/2019 Provi evonne: Diagnosis: Last Documented On 0 1:20PM By Lita Barrera ; [facility] predniSONE 20 MG OR TABS 08/22/2012 - 12/26/2019 Provi evonne: Diagnosis: Last Documented On 0 1:20PM By Lita Barrera ; [facility] Forteo 600 mcg/2.4ml SC INJ 08/22/2012 - 12/26/2019 Pr ovider: Diagnosis: Last Documented On 0 1:20PM By Lita Barrera ; [facility] Symbyax 12-25 MG OR CAPS 08/22/2012 - 12/26/2019 Provi evonne: Diagnosis: Last Documented On 0 1:18PM By Lita Barrera ; [facility] Loratadine 10 MG OR TABS 08/22/2012 - 12/26/2019 Provi evonne: Diagnosis: Last Documented On 0 1:20PM By Lita Barrera ; [facility] Symbicort 160-4.5 MCG/ACT IN AERO 08/22/2012 - 020 Provider: Diagnosis: Last Documented On 0 1:18PM By Lita Barrera ; [facility] Methotrexate POWD 08/22/2012 - 12/26/2019 Provider: Diagnosis: Last Documented On 0 1:20PM By Lita Barrera ; [facility] PriLOSEC OTC 20 MG OR TBEC 08/22/2012 - 12/26/2019 Pro vider: Diagnosis: Last Documented On 0 1:18PM By Lita Barrera ; [facility] Singulair 4 MG OR PACK 08/22/2012 - 12/26/2019 Provide r: Diagnosis: Last Documented On 0 1:18PM By Lita Barrera ; [facility] busPIRone HCl POWD 08/22/2012 - 12/26/2019 Provider: Diagnosis: Last Documented On 0 1:20PM By Lita Barrera ; [facility] Pravastatin Sodium 10 MG OR TABS 08/22/2012 - 12/26/19 20 Provider: Diagnosis: Last Documented On 0 1:20PM By Lita Barrera ; [facility] Verapamil HCl POWD 08/22/2012 - 12/26/2019 Provider: Diagnosis: Last Documented On 0 1:18PM By Lita Barrera ; [facility] Reglan 5 MG OR TABS 08/22/2012 - 12/26/2019 Provider: Diagnosis: Last Documented On 0 1:18PM By Lita Barrera ; [facility] Folic Acid POWD 08/22/2012 - 12/26/2019 Provider: Diagnosis: Last Documented On 0 1:20PM By Lita Barrera ; [facility] Lortab 7.5-500 MG OR TABS 11/22/2011 - 12/02/2011 Prov ider: Osvaldo Sorensen MD Diagnosis: sx 2-15-12//cr Last Documented On 2 10:00AM By Roseanne Barragan ; [facility] OxyCONTIN 20 MG OR TB12 11/22/2011 - 12/02/2011 Provid er: Osvaldo Sorensen MD Diagnosis: sx 2-15-12//cr Last Documented On 2 10:00AM By Roseanne Barragan ; [facility] Naproxen 500 MG OR TABS 11/22/2011 - 12/07/2011 Provid er: Osvaldo Sorensen MD Diagnosis: sx 2-15-12//cr Last Documented On 2 10:00AM By Roseanne Barragan ; [facility] Lortab 7.5-500 MG OR TABS 07/29/2011 - 08/04/2011 Prov ider: Osvaldo Sorensen MD Diagnosis: [facility] [phone] Last Documented On 1 10:49AM By Stacey Peter ; [facility] OxyCONTIN 20 MG OR TB12 07/02/2011 - 07/16/2011 Provid er: Osvaldo Sorensen MD Diagnosis: sx 11//cr Last Documented On 1 1:18PM By Roseanne [...] Recorded Vital Signs Includes: Vital Signs from 08/16/2024 through 08/16/2025 Vital Name 08/13/2025 12:57P 08/08/2025 11:17A 04/25/2025 09:27A 04/18/2025 11:19A 01/22/2025 01:58P Height (in) 64 64 64 64 64 Weight (lb) 180 175 175 175 175 Body Mass Index 30.9 30 30 30 30 Body Surface Area 1.9 1.8 1.8 1.8 1.8 Note: LJ ah aek sjp ah Last Documented: On 08/13/2025 12:58PM ; [facility] On 08/08/2025 11:17AM ; [facility] On 04/25/2025 9:27AM ; [facility] On 04/18/2025 11:19AM ; [facility] On 01/22/2025 1:58PM ; [facility] Vital Name 11/01/2024 01:18P 08/21/2024 11: 22A Height (in) 64 64 Weight (lb) 175 175 Body Mass Index 30 30 Body Surface Area 1.8 1.8 Note: cd aek Last Documented: On 11/01/2024 1:18PM ; [facility] On 08/21/2024 11:23AM ; [facility] Results Includes: Results from 08/16/2024 through 08/16/2025 CBC With Differential/Platelet [facility] o f Marjan Ordered by Linda Oro PA-C on 08/13 Collected: 08/13/2025 Reported: 08/14/20 13:07 Last Documented On 1:29PM ; [facility] [facility] All test results are final unless otherw ise noted. WBC 13.8 x10E3/uL (3.4-10.8) H (High) Last Documented On 1:29PM ; [facility] RBC 4.01 x10E6/uL (3.77-5.28) None Last Documented On 1:29PM ; [facility] Hemoglobin 13.4 g/dL (11.1-15.9) None Last Documented On 1:29PM ; [facility] Hematocrit 42.1 % (34.0-46.6) None Last Documented On 1:29PM ; [facility] MCV 105 fL (79-97) H (High) Last Documented On 1:29PM ; [facility] MCH 33.4 pg (26.6-33.0) H (High) Last Documented On 1:29PM ; [facility] MCHC 31.8 g/dL (31.5-35.7) None Last Documented On 1:29PM ; [facility] Neutrophils 90 % (Not Estab.) None Last Documented On 1:29PM ; [facility] Immature Granulocytes 1 % (Not Estab.) None Last Documented On 1:29PM ; [facility] Lymphs 4 % (Not Estab.) None Last Documented On 1:29PM ; [facility] Monocytes 5 % (Not Estab.) None Last Documented On 1:29PM ; [facility] Eos 0 % (Not Estab.) None Last Documented On 1:29PM ; [facility] Basos 0 % (Not Estab.) None Last Documented On 1:29PM ; [facility] Platelets 328 x10E3/uL (150-450) None Last Documented On 1:29PM ; [facility] Neutrophils (Absolute) 12.2 x10E3/uL (1.4-7.0) H (High) Last Documented On 1:29PM ; [facility] Immature Grans (Abs) 0.1 x10E3/uL (0.0-0.1) None Last Documented On 1:29PM ; [facility] Lymphs (Absolute) 0.6 x10E3/uL (0.7-3.1) L (Low) Last Documented On 1:29PM ; [facility] Monocytes(Absolute) 0.7 x10E3/uL (0.1-0.9) None Last Documented On 1:29PM ; [facility] Eos (Absolute) 0.0 x10E3/uL (0.0-0.4) None Last Documented On 1:29PM ; [facility] Baso (Absolute) 0.1 x10E3/uL (0.0-0.2) None Last Documented On 1:29PM ; [facility] RDW 15.5 % (11.7-15.4) H (High) Last Documented On 1:29PM ; [facility] Erythrocyte Sedimentation Rate [facility] [place] Ordered by Linda Oro PA-C on 08/13 Collected: 08/13/2025 Reported: 08/14/20 13:07 Last Documented On 1:29PM ; [facility] All test results are final unless otherw ise noted. Erythrocyte Sedimentation Rate 14 mm/hr (0-40) None Last Documented On 1:29PM ; [facility] C-Reactive Protein, Quant [facility] [place] Ordered by Linda Oro PA-C on 08/13 Collected: 08/13/2025 Reported: 08/14/20 13:07 Last Documented On 1:29PM ; [facility] All test results are final unless otherw ise noted. C-Reactive Protein, Quant 2 mg/L (0-10) None Last Documented On 1:29PM ; [facility] Reported Physicians [facility] [place] Ordered by Linda Oro PA-C on 08/13 Collected: 08/13/2025 Reported: 08/14/20 13:07 Last Documented On 1:29PM ; [facility] All test results are final unless otherw ise noted. Reported Physicians See Note None Last Documented On 08/14/2025 1:29PM ; Eliot [facility] Note: Reported Physicians:Gerald: Linda Oro History of Present Illness History of Present Illness not supported for this document type No History of Present Illness Recorded Social History Description Last Updated Caffeine use 02/10/2024 Last Documented On 4 10:11AM ; [facility] No recent change in diet 02/10/2024 Last Documented On 4 10:11AM ; [facility] Not a current smoker. 02/10/2024 Last Documented On 4 10:11AM ; [facility] Not exercising regularly 02/10/2024 Last Documented On 4 10:11AM ; [facility] Not using alcohol 02/10/2024 Last Documented On 4 10:11AM ; [facility] Not using drugs 02/10/2024 Last Documented On 4 10:11AM ; [facility] Tobacco non-user 02/09/2024 Last Documented On 4 10:11AM ; [facility] No tobacco use 06/19/2014 Last Documented On 4 9:53AM ; [facility] Smoking status : Never smoked/ Recode: 4 06/19/2014 Last Documented On 4 9:53AM ; [facility] Procedures and Surgical History Includes: Procedures from 08/16/2024 through 08/16/2025 Procedures Code Diagnosis Performing Provider Service Location Service Date X-RAY EXAM OF HAND 3 VIEWS (RIGHT) 96509 Other specified rheumatoid arthritis, right hand Osvaldo Sorensen MD [facility] 04/18/2025 Last Documented On 5 3:54PM ; [facility] X-RAY EXAM OF HAND 3 VIEWS (RIGHT) 25390 Other specified rheumatoid arthritis, right hand Osvaldo Sorensen MD [facility] 01/22/2025 Last Documented On 5 10:19AM ; [facility] THERAPEUTIC ACTIVITIES (Occupational therapy) 14663 Other specified rheumatoid arthritis, right hand Cristobal Angle OT [facility] 01/22/2025 Last Documented On 5 9:20AM ; [facility] MANUAL THERAPY (Occupational therapy) 79623 Other specified rheumatoid arthritis, right hand Cristobal Angle OT [facility] 01/22/2025 Last Documented On 5 9:20AM ; [facility] THERAPEUTIC EXERCISES (Occupational therapy) 64242 Other specified rheumatoid arthritis, right hand Cristobal Angle OT [facility] 01/22/2025 Last Documented On 5 9:20AM ; [facility] SELF CARE MNGMENT TRAINING (Occupational therapy) 54407 Other specified rheumatoid arthritis, right hand Genny Harris [facility] 01/17/2025 Last Documented On 5 1:22PM ; [facility] THERAPEUTIC ACTIVITIES (Occupational therapy) 64650 Other specified rheumatoid arthritis, right hand Genny Harris OT [facility] 01/17/2025 Last Documented On 5 1:22PM ; [facility] MANUAL THERAPY (Occupational therapy) 64019 Other specified rheumatoid arthritis, right hand Genny Harris OT [facility] 01/17/2025 Last Documented On 5 1:22PM ; [facility] MANUAL THERAPY (Occupational therapy) 42584 Other specified rheumatoid arthritis, right hand Cristobal Angle OT [facility] 01/03/2025 Last Documented On 5 1:54PM ; [facility] THERAPEUTIC EXERCISES (Occupational therapy) 98563 Other specified rheumatoid arthritis, right hand Cristobal Angle OT [facility] 01/03/2025 Last Documented On 5 1:54PM ; [facility] MANUAL THERAPY (Occupational therapy) 75562 Other specified rheumatoid arthritis, right hand Genny Harris OT [facility] 12/25/2024 Last Documented On 5 1:58PM ; [facility] THERAPEUTIC EXERCISES (Occupational therapy) 81603 Other specified rheumatoid arthritis, right hand Genny Harris OT [facility] 12/25/2024 Last Documented On 5 1:58PM ; [facility] MANUAL THERAPY (Occupational therapy) 13532 Other specified rheumatoid arthritis, right hand Genny Harris OT [facility] 12/20/2024 Last Documented On 5 2:09PM ; [facility] THERAPEUTIC EXERCISES (Occupational therapy) 09542 Other specified rheumatoid arthritis, right hand Genny Harris OT [facility] 12/20/2024 Last Documented On 5 2:09PM ; [facility] SELF CARE MNGMENT TRAINING (Occupational therapy) 80171 Other specified rheumatoid arthritis, right hand Ninfa Chester OT [facility] 11/29/2024 Last Documented On 5 8:43AM ; [facility] THERAPEUTIC EXERCISES (Occupational therapy) 44916 Other specified rheumatoid arthritis, right hand Cristobal Angle OT [facility] 11/22/2024 Last Documented On 5 10:07PM ; [facility] Wrist hand finger orthosis, rigid without joints, may includ (RIGHT) L3808 Other specified rheumatoid arthritis, right hand Genny Madisons OT [facility] 11/15/2024 Last Documented On 5 12:02PM ; [facility] SELF CARE MNGMENT TRAINING (Occupational therapy) 48535 Other specified rheumatoid arthritis, right hand Genny Madisons OT [facility] 11/15/2024 Last Documented On 5 12:02PM ; [facility] OT Eval - Mod Complexity (Occupational therapy) 49033 Other specified rheumatoid arthritis, right hand Genny Madisons OT [facility] 11/15/2024 Last Documented On 5 12:02PM ; [facility] FUSION OF KNUCKLE (Distinct procedure, RIGHT HAND, FIFTH DIGIT) 36077 Other specified rheumatoid arthritis, right hand Osvaldo Sorensen MD [facility] 11/14/2024 Last Documented On 5 8:53AM ; [facility] FUSION OF KNUCKLE (Distinct procedure, RIGHT HAND, FOURTH DIGIT) 40881 Other specified rheumatoid arthritis, right hand Osvaldo Sorensen MD [facility] 11/14/2024 Last Documented On 5 8:53AM ; [facility] FUSION OF KNUCKLE (Distinct procedure, RIGHT HAND, THIRD DIGIT) 49721 Other specified rheumatoid arthritis, right hand Osvaldo Sorensen MD [facility] 11/14/2024 Last Documented On 5 8:53AM ; [facility] FUSION OF KNUCKLE (RIGHT HAND,SECOND DIGIT) 40143 Other specified rheumatoid arthritis, right hand Osvaldo Sorensen MD [facility] 11/14/2024 Last Documented On 5 8:53AM ; [facility] X-RAY EXAM OF ELBOW 1-2 VIEWS (LEFT) 25048 Primary osteoarthritis, left elbow Osvaldo Sorensen [facility] 11/01/2024 Last Documented On 5 10:02AM ; [facility] Surgical History Last Updated History of History of Gallbladder 2023 Last Documented On 4 10:11AM ; [facility] Past Surgical History: total wrist, thum b fusion, finger joints 02/10/2024 Last Documented On 4 10:11AM ; [facility] Medical History Includes: Medical History in patient's chart Description Last Updated scleroderma, IBS 02/10/2024 Last Documented On 4 10:11AM ; [facility] History of arthritis 02/10/2024 Last Documented On 4 10:11AM ; [facility] History of asthma 02/10/2024 Last Documented On 4 10:11AM ; [facility] History of Fractures 02/10/2024 Last Documented On 4 10:11AM ; [facility] History of Heartburn / Acid Reflux 02/09 Last Documented On 4 10:11AM ; [facility] History of History of Rheumatology 02/09 Last Documented On 4 10:11AM ; [facility] History of Hypertension 02/10/2024 Last Documented On 4 10:11AM ; [facility] History of osteoporosis 02/10/2024 Last Documented On 4 10:11AM ; [facility] Family History Includes: Family History in patient's chart Description Last Updated Diabetes mellitus 02/10/2024 Last Documented On 4 10:11AM ; [facility] Family history of cancer 02/10/2024 Last Documented On 4 10:11AM ; [facility] Family history of osteoporosis 4 Last Documented On 4 10:11AM ; [facility] Family history of rheumatoid arthritis 0 02/10/2024 Last Documented On 4 10:11AM ; [facility] Family history of systemic hypertension 02/10/2024 Last Documented On 4 10:11AM ; [facility] Stroke / Seizures 02/10/2024 Last Documented On 4 10:11AM ; [facility] Review of Systems Review of Systems not [...] Active Last Documented On 5 12:57PM ; [facility] Encounters Includes: Encounters from 08/16/2024 through 08/16/2025 Encounter Provider Location Date Check-In Time Check-Out Time Diagnosis IN HOUSE REFERRAL Lnida Oro PA-C [facility] 08/13/20 25 12:53PM 1:51PM Overweight Follow Up Osvaldo Sorensen MD [facility] 08/08/20 25 10:58AM 1:00PM Follow Up Osvaldo Sorensen MD [facility] 04/25/20 25 9:19AM 10:22AM Overweight Follow Up Osvaldo Sorensen MD [facility] 04/18/20 25 10:47AM 12:39PM Overweight Post Op Osvaldo Sorensen MD [facility] 01/23/20 25 1:56PM 3:19PM Overweight Post Op Osvaldo Sorensen MD [facility] 11/29/19 25 10:53AM 11:44AM Follow Up [facility] 11/15/19 25 2:24PM 11/01/2024 11:59PM [facility] Osvaldo Sorensen MD Surgery 11/14/19 25 8:57AM 11/01/2024 11:59PM Follow Up Osvaldo Sorensen MD [facility] 11/01/19 25 1:03PM 2:28PM Overweight Post Op Michell Philip APRN [facility] 08/21/20 24 11:12AM 11:56AM Overweight Insurance Includes: Active Insurance Policies Plan Name Member ID Group # Subscriber Relationship Effect apryl Dates 1 - [employer] [id number] Mari Clark Imelda f Clinical Notes Includes: Signed Clinical Notes starting from 09/23/2022 * Progress note Date Encounter Last Documented by 08/13/2025 IN HOUSE REFERRAL Last documente d on 08/13/2025; 3:05 PM, Linda Oro PA-C; [facility] Active Problems & Conditions - Bone Pain [...] omissions. Care Team - LONNIE SOLANO - MANAGER LABOR RELATIONS * Progress note Date Encounter Last Documented by 04/25/2025 Follow Up Last documented on 04/26/2025; 9:17 AM, Osvaldo Sorensen MD; [facility] Active Problems & [...] Tablet 90 days, 0 refills - Nystatin 664382 UNIT/ML Mouth/Throat Suspension 7 days, 0 refills [...] weight Care Team - LONNIE SOLANO - MANAGER LABOR RELATIONS Notes This dictation was done with voice [...] on 04/22/2025; 2:29 PM, Osvaldo Sorensen MD; [facility] Active Problems & [...] Findings - Vitals taken 04/18/2025 11:19 am [facility] Height 64 in 59 - 78 Weight [...] weight Care Team - LONNIE SOLANO - MANAGER LABOR RELATIONS Notes This dictation was done with voice [...] on 01/23/2025; 11:42 AM, Osvaldo Sorensen MD; [facility] Active Problems & [...] weight Care Team - LONNIE SOLANO - MANAGER LABOR RELATIONS Notes This dictation was done with voice [...] on 12/17/2024; 10:26 AM, Osvaldo Sorensen MD; [facility] Active Problems & [...] documented. Care Team - LONNIE SOLANO - MANAGER LABOR RELATIONS Notes This dictation was done with voice [...] on 11/01/2024; 3:48 PM, Osvaldo Sorensen MD; [facility] Active Problems & [...] documented. Care Team - LONNIE SOLANO - MANAGER LABOR RELATIONS Notes This dictation was done with voice [...] on 08/21/2024; 11:44 AM, Michell Philip APRN; [facility] Active Problems & [...] documented. Care Team - LONNIE SOLANO - MANAGER LABOR RELATIONS
--- OUTSIDE RECORDS SUMMARY | 2025-08-16 07:30 | XMS_ITS | Patient Health Record ---
[facility] [address] [place] [id number] Care Team Providers Care Sanitizer Name Role Phone Sandoval Tuttle Primary Care Provider Paulette Moreno Unavailable [phone] Allergies Allergen (clinical drug ingredient) Drug/Non Drug [...] - 38 platlet 370 100 - 400 H-Microalbumine/Creatinine Reviewed date:11/12/2024 12:23:03 PM Interpretation: Performing Lab: Notes/Report: H-Lipid Panel Reviewed date:11/12/2024 12:23:14 PM Interpretation: Performing Lab: Notes/Report: H-CMP Reviewed date:11/12/2024 12:23:26 PM Interpretation: Performing Lab: Notes/Report: H-CRP Reviewed date:11/12/2024 12:23:38 PM Interpretation: Performing Lab: Notes/Report: H-Sed Rate Reviewed date:11/12/2024 12:23:51 PM Interpretation: Performing Lab: Notes/Report: H-TSH Reviewed date:11/12/2024 12:22:52 PM Interpretation: Performing Lab: Notes/Report: CBC Venipuncture (in house) Reviewed date:06/25/2025 10:56:26 [...] - 38 platlet 412 100 - 400 H-TSH Reviewed date:11/12/2024 12:27:21 PM Interpretation: Normal [...] Vaccine Route Administration Date Status Comme nts [id number] dicare pts. IM Intramuscular 08/11/2011 Administered oZueepsf-oxxenrarl-zc dicare pts. IM Intramuscular 07/21/2012 Administered xFluzone [...] Status Risk Notes Problem Gastroesophageal reflux disease (748567623) GERD (gastroesophageal reflux disease) (K21.9) Active confirmed Problem Essential hypertension (05573519) Essential (primary) hypertension (I10) Active confirmed Problem Hypertension (31026830) HTN (hypertension) (I10) Active confirmed Problem Hyperlipidemia (13767168) Hyperlipidemia (E78.5) Active confirmed Problem Anxiety (03022875) Anxiety (F41.9) Active confi rmed Problem Body mass index 30+ - obesity (814917328) BMI 30.0-30.9,adult (Z68.30) Active confirmed Problem Sciatica (71374217) Lumbago with sciatica, right side (M54.41) Active confirmed Problem Primary insomnia (2217811) Primary insomnia (F51.01) Active confirmed Problem Sciatica (67466429) Lumbago with sciatica, left side (M54.42) Active confirmed Problem Constipation (63317236) Constipation, unspecified constipation type (K59.00) Active confirmed Problem Flatulence, eructation and gas pain (712083537) Bloating (R14.0) Active confirmed Problem Allergic rhinitis (57438517) Allergic rhinitis, unspecified allergic rhinitis type (J30.9) Active confirmed Problem Mild intermittent asthma (708883015) Mild intermittent asthma without complication (J45.20) Active confirmed Problem Leukocytosis (908596969) Leukocytosis, unspecified type (D72.829) Active confirmed Problem Rheumatoid arthritis (24485599) Rheumatoid arthritis involving multiple sites, unspecified rheumatoid factor presence (M06.9) Active confirmed Problem Hyperlipidaemia (41236137) Hyperlipidemia, unspecified hyperlipidemia type (E78.5) Active confirmed Problem Chronic gouty arthritis (22825620) Chronic gout without tophus, unspecified cause, unspecified site (M1A.9XX0) Active confirmed Problem Bursitis of left shoulder (795397173811095) Bursitis of left deltoid (M75.52) Active confirmed Problem Asthma without status asthmaticus (32997739) Asthma, unspecified asthma severity, unspecified whether complicated, unspecified whether persistent (J45.909) Active confirmed Problem Scleroderma (932444220) Scleroderma (M34.9) Active confirmed Problem Rheumatoid arthritis (85989675) Rheumatoid arthritis, involving unspecified site, unspecified whether rheumatoid factor present (M06.9) Active confirmed Vital Signs Heart Rate 102 /min 10/31/2024 Blood pressure diastolic 68 mm Hg 06/24/2025 Height 65 in 06/24/2025 Blood pressure systolic 110 mm Hg 06/24/2025 Weight 180.6 lbs 06/14/2025 BMI 30.05 kg/m2 06/14/2025 Encounters Encounter Location Date Provider Diagnosis [facility] [address] [facility] [address] [place], [place] [id number] 10/09/2024 Paulettemarissa Moreno URI (upper respirato ry infection) J06.9 [facility] [address] [facility] [address] [place], [place] [id number] 10/31/2024 Sandoval [place] HTN (hypertension) I 10 ; Hyperlipidemia E78.5 ; Night sweats R61 and GERD (gastroesophageal reflux disease) K21.9 [facility] [address] [facility] [address] [place], [place] [id number] 05/01/2025 Sandoval [place] HTN (hypertension) I 10 ; Bloating R14.0 ; Asthma, unspecified asthma severity, unspecified whether complicated, unspecified whether persistent J45.909 and BMI 30.0-30.9,adult Z68.30 [facility] [address] [place], [place] [id number] 06/14/2025 Sandoval [place] Acute cough R05.1 [facility] [address] [place], [place] [id number] 06/24/2025 Sandoval [place] Acute cough R05.1 [facility] [address] [place], [place] [id number] 11/12/2024 Sandoval [place] [facility] [address] [place], [place] [id number] 01/16/2025 Sandoval [place] HTN (hypertension) I 10 and Asthma, unspecified asthma severity, unspecified whether complicated, unspecified whether persistent J45.909 [facility] [address] [facility] [address] [place] [id number] 05/07/2025 Sandoval [place] Screening for breast cancer Z12.39 [facility] [address] [facility] [address] [facility] [address] [place] [id number] 05/20/2025 Sandoval Tuttle Assessments Encounter Date Diagnosis [...] [address] [facility], [address], [place], [place], [id number], Insurance Providers Payer Name Payer Address Payer Phone Subscriber Number Group Number Insured Name Patient Relationship to Insured Coverage Start Date Coverage End Date [employer] (MEDICAR E) [address] [address] [place] [address] [phone] [id number] Mari Clark Self - patient is the [...]
--- OUTSIDE RECORDS SUMMARY | 2025-08-16 07:30 | XMS_ITS | Clinical Summary ---
Author Organization [facility] Address [address] [place] [address] Phone Care Team Providers Care Joggle Press Operator Name Role Phone Osvaldo Sorensen MD Unavailable [phone] LONNIE SOLANO Primary Care Provider [phone] Reason for Visit and Chief Complaint The Chief Complaint is: R wrist pain Problems Includes: Problems addressed during this encounter and other active Problems All Visits Onset Date Resolved Date Provider Condition S tatus Bone Pain in Left Lower Leg 08/13/2025 Linda Oro PA-C Active Last Documented On 5 1:42PM ; [facility], [facility] Soft Tissue Pain Lower Leg Left 08/13/2025 Blu Oro PA-C Active Last Documented On 5 1:44PM ; [facility], [facility] Joint Pain Wrist Right 02/09/2024 Michell douglass APRN Active Last Documented On 4 10:10AM ; [facility], [facility] Joint Pain Shoulder 10/17/2012 Osvaldo olson MD Active Last Documented On 3 12:57PM ; [facility] Joint Pain Hip 09/26/2012 Faustino Slater MD Ac tive Last Documented On 2 1:28PM ; [facility], [facility] Plan of Treatment Pending Tests Order Diagnosis Results Due Ordering P rovider Radiology - MRI MRI Tib/Fib Pain in left leg 08/22/25 Laura Sorensen MD Last Documented On 12:30PM ; [facility], [facility] Future Appointments Date Time Location Provi evonne Outside Test 08/16/2025 9:45AM [facility] Last Documented On 10:07AM ; [facility], [facility] Follow Up 08/19/2025 1:00PM [facility] Linda Oro PA-C Last Documented On 10:04AM ; [facility], [facility] Instructions to patient Lose weight Last Documented On 9:27AM ; [facility], [facility] Assessments Includes: Assessments from this encounter Findings - Overweight - Last Documented On 04/26/2025 9:17AM ; [facility], [facility] Instructions Includes: Instructions from this encounter Instructions to patient Lose weight Last Documented On 9:27AM ; [facility], [facility] Medical Equipment - Implanted Devices Includes: Current Devices No Medical Equipment Recorded Medications Includes: Medications discussed during this encounter and other current Medications Current Medications (continue as prescribed) Loratadine 10 MG Oral Tablet 08/09/2025 Provider: Diagnosis: Last Documented On 1:21PM By Lita GARAY, [facility] Famotidine 20 MG Oral Tablet 08/09/2025 Provider: Diagnosis: Last Documented On 1:21PM By Lita GARAY, [facility] Symbicort 160-4.5 MCG/ACT Inhalation Aerosol Provider: Diagnosis: Last Documented On 1:20PM By Lita GARAY, [facility] Prolia 60 MG/ML Subcutaneous Solution Prefilled Syring e 08/09/2025 Provider: Diagnosis: Last Documented On 1:22PM By Lita GARAY [facility] Atorvastatin Calcium 20 MG Oral Tablet 08/09/2025 Pr ovider: Diagnosis: Last Documented On 1:21PM By Lita GARAY, [facility] Methotrexate 125 MG/5ML Intr amuscular Solution Prefilled Syringe 08/09/2025 Provider: Diagnosis: Last Documented On 1:19PM By Lita Karbo ; [facility] Clindamycin HCl 150 MG Oral Capsule 08/05/2025 Provi evonne: Diagnosis: Last Documented On 11:17AM By Shila Steiner ; [facility] Montelukast Sodium 10 MG Oral Tablet 08/02/2025 Prov ider: LONNIE MULBERRY Diagnosis: Last Documented On 1:20PM By Lita Barrera ; [facility] Montelukast Sodium 10 MG Oral Tablet 08/02/2025 Prov ider: LONNIE MULBERRY Diagnosis: Last Documented On 11:17AM By Shila Steiner ; [facility] Folic Acid 1 MG Oral Tablet 07/31/2025 Provider: Dagmar Lundberg MD Diagnosis: Last Documented On 11:17AM By hSila Steiner ; [facility] predniSONE 5 MG Oral Tablet 07/31/2025 Provider: Dagmar Lundberg MD Diagnosis: Last Documented On 1:20PM By Lita Barrera ; [facility] Furosemide 40 MG Oral Tablet 07/09/2025 Provider: LONNIE MULBERRY Diagnosis: Last Documented On 11:17AM By Shila Steiner ; [facility] Metoclopramide HCl 10 MG Oral Tablet 07/09/2025 Prov ider: LONNIE MULBERRY Diagnosis: Last Documented On 11:17AM By Shila Steiner ; [facility] Omeprazole 40 MG Oral Capsule Delayed Release 07/09/20 Provider: LONNIE MULBERRY Diagnosis: Last Documented On 11:17AM By Shila Steiner ; [facility] busPIRone HCl 10 MG Oral Tablet 07/09/2025 Provider: LONNIE MULBERRY Diagnosis: Last Documented On 1:20PM By Lita Barrera ; [facility] Lisinopril 10 MG Oral Tablet 06/15/2025 Provider: LONNIE MULBERRY Diagnosis: Last Documented On 11:17AM By Shila Steiner ; [facility] Verapamil HCl 80 MG Oral Tablet 06/15/2025 Provider: LONNIE SOLANO Diagnosis: Last Documented On 11:17AM By Shila Steiner ; [facility] Past Medications on file Magic Mouthwash (L/N/B/M) Oral Solution 11/20/2024 - 11/26/2024 Provider: Osvaldo olson MD Diagnosis: swish, gargle spit 1-2 teasp oons (5-10 mL) every 4-6 hours as needed Last Documented On 5 10:33AM By Dr. Sorensen ; [facility] HYDROcodone-Acetaminophen 7. 5-325 MG Oral Tablet 11/12/2024 - 11/15/2024 Provider: Osvaldo Sorensen MD Diagnosis: 1 tab every 6 hrs prn pain Last Documented On 12:55PM By Dr. Sorensen ; [facility] Vitamin C 1000 MG Oral Tablet 11/12/2024 - 01/11/2025 Provider: Osvaldo olson MD Diagnosis: once a day take 1 tablet once daily post surgery Last Documented On 12:55PM By Lita Barrera ; [facility] Naproxen 500 MG Oral Tablet 11/12/2024 - 12/12/2024 Pr ovider: Osvaldo Sorensen MD Diagnosis: take one tablet twice a day prn following surger y Last Documented On 12:55PM By Lita Barrera ; [facility] Vitamin C 1000 MG Oral Tablet 08/03/2024 - 10/02/2024 Provider: Osvaldo olson MD Diagnosis: once a day take 1 tablet once daily post surgery Last Documented On 4 9:39AM By Lita Barrera ; [facility] Naproxen 500 MG Oral Tablet 08/03/2024 - 09/02/2024 Pr ovider: Osvaldo Sorensen MD Diagnosis: take one tablet twice a day prn following surger y Last Documented On 4 9:39AM By Lita Barrera ; [facility] Lithia 5-325 MG OR TABS 06/19/2014 - 07/19/2014 Provider: Jose Long MD Diagnosis: DEGENERATIVE MARY NT DISEASE KNEE Last Documented On 4 3:42PM By Rome Marinelli User ; [facility] Lortab 7.5-500 MG OR TABS 10/17/2012 - 10/22/2012 Prov ider: Osvaldo Sorensen MD Diagnosis: sx 1 //cr Last Documented On 3 1:15PM By Roseanne Benwood ; [facility] Naproxen 500 MG [...] Osvaldo Sorensen MD Diagnosis: [facility] [phone] Last Documented On 1 10:49AM By Stacey [...] On 04/25/2025 9:27AM ; [facility] Results Includes: Results discussed during [...] 02/10/2024 Last Documented On 5 9:26AM ; [facility] No recent change in diet 02/10/2024 Last Documented On 5 9:26AM ; [facility] Not a current smoker. 02/10/2024 Last Documented On 5 9:26AM ; [facility] Not exercising regularly 02/10/2024 Last Documented On 5 9:26AM ; [facility] Not using alcohol 02/10/2024 Last Documented On 5 9:26AM ; [facility] Not using drugs 02/10/2024 Last Documented On 5 9:26AM ; [facility] Tobacco non-user 02/09/2024 Last Documented On 5 9:26AM ; [facility] No tobacco use 06/19/2014 Last Documented On 5 9:26AM ; [facility] Smoking status : Never smoked/ Recode: 4 06/19/2014 Last Documented On 5 9:26AM ; [facility] Procedures and Surgical History Surgical History Last Updated History of History of Gallbladder 2023 Last Documented On 5 9:26AM ; [facility] Past Surgical History: total wrist, thum b fusion, finger joints 02/10/2024 Last Documented On 5 9:26AM ; [facility] Medical History Includes: Medical History addressed during this encounter Description Last Updated scleroderma, IBS 02/10/2024 Last Documented On 5 9:26AM ; [facility] History of arthritis 02/10/2024 Last Documented On 5 9:26AM ; [facility] History of asthma 02/10/2024 Last Documented On 5 9:26AM ; [facility] History of Fractures 02/10/2024 Last Documented On 5 9:26AM ; [facility] History of Heartburn / Acid Reflux 02/09 Last Documented On 5 9:26AM ; [facility] History of History of Rheumatology 02/09 Last Documented On 5 9:26AM ; [facility] History of Hypertension 02/10/2024 Last Documented On 5 9:26AM ; [facility] History of osteoporosis 02/10/2024 Last Documented On 5 9:26AM ; [facility] Family History Includes: Family History addressed during this encounter Description Last Updated Diabetes mellitus 02/10/2024 Last Documented On 5 9:26AM ; [facility] Family history of cancer 02/10/2024 Last Documented On 5 9:26AM ; [facility] Family history of osteoporosis 4 Last Documented On 5 9:26AM ; [facility] Family history of rheumatoid arthritis 0 02/10/2024 Last Documented On 5 9:26AM ; [facility] Family history of systemic hypertension 02/10/2024 Last Documented On 5 9:26AM ; [facility] Stroke / Seizures 02/10/2024 Last Documented On 5 9:26AM ; [facility] Review of Systems Includes: [...] Active Last Documented On 5 12:57PM ; [facility] Encounters Encounter Provider Location Date Check-In Time Check-Out Time Diagnosis Follow Up Osvaldo Sorensen MD [facility] 5 9:19AM 10:22AM Overweight Insurance Includes: Active Insurance Policies Plan Name Member ID Group # Subscriber Relationship Effect apryl Dates 1 - [employer] [id number] Mari Clark Imelda f Clinical Notes Includes: Clinical Notes from this encounter * Progress note Date Encounter Last Documented by 04/25/2025 Follow Up Last documented on 04/26/2025; 9:17 AM, Osvaldo Sorensen MD; [facility] Active Problems & Conditions [...] Tablet 90 days, 0 refills - Nystatin [id number] UNIT/ML Mouth/Throat Suspension 7 days, 0 refills [...] weight Care Team - LONNIE SOLANO - REDUCING SALON ATTENDANT Notes This dictation was done with voice [...]
--- OUTSIDE RECORDS SUMMARY | 2025-08-16 07:30 | XMS_ITS | Clinical Summary ---
Author Organization [facility] , [facility] Address [address] [place] [address] Phone Care Team Providers Care Law Secretary Name Role Phone Osvaldo Sorensen MD Unavailable [phone] LONNIE SOLANO Primary Care Provider [phone] Reason for Visit and Chief Complaint The Chief Complaint is: R wrist pain Problems Includes: Problems addressed during this encounter and other active Problems All Visits Onset Date Resolved Date Provider Condition S tatus Bone Pain in Left Lower Leg 08/13/2025 Linda Oro PA-C Active Last Documented On 5 1:42PM ; [facility], [facility] Soft Tissue Pain Lower Leg Left 08/13/2025 Blu Oro PA-C Active Last Documented On 5 1:44PM ; [facility], [facility] Joint Pain Wrist Right 02/09/2024 Michell douglass APRN Active Last Documented On 4 10:10AM ; [facility], [facility] Joint Pain Shoulder 10/17/2012 Osvaldo olson MD Active Last Documented On 3 12:57PM ; [facility] Joint Pain Hip 09/26/2012 Faustino Slater MD Ac tive Last Documented On 2 1:28PM ; [facility], [facility] Plan of Treatment Pending Tests Order Diagnosis Results Due Ordering P rovider Radiology - MRI MRI Tib/Fib Pain in left leg 08/22/25 Laura Sorensen MD Last Documented On 12:30PM ; [facility], [facility] Future Appointments Date Time Location Provi evonne Outside Test 08/16/2025 9:45AM [facility] Last Documented On 10:07AM ; [facility], [facility] Follow Up 08/19/2025 1:00PM [facility] Linda Oro PA-C Last Documented On 10:04AM ; [facility], [facility] Instructions to patient Lose weight Last Documented On 11:18AM ; [facility], [facility] Assessments Includes: Assessments from this encounter Findings - Overweight - Last Documented On 04/22/2025 2:29PM ; [facility], [facility] Instructions Includes: Instructions from this encounter Instructions to patient Lose weight Last Documented On 11:18AM ; [facility], [facility] Medical Equipment - Implanted Devices Includes: Current Devices No Medical Equipment Recorded Medications Includes: Medications discussed during this encounter and other current Medications Current Medications (continue as prescribed) Loratadine 10 MG Oral Tablet 08/09/2025 Provider: Diagnosis: Last Documented On 1:21PM By Lita GARAY, [facility] Famotidine 20 MG Oral Tablet 08/09/2025 Provider: Diagnosis: Last Documented On 1:21PM By Lita GARAY, [facility] Symbicort 160-4.5 MCG/ACT Inhalation Aerosol Provider: Diagnosis: Last Documented On 1:20PM By Lita GARAY, [facility] Prolia 60 MG/ML Subcutaneous Solution Prefilled Syring e 08/09/2025 Provider: Diagnosis: Last Documented On 1:22PM By Lita GARAY [facility] Atorvastatin Calcium 20 MG Oral Tablet 08/09/2025 Pr ovider: Diagnosis: Last Documented On 1:21PM By Lita GARAY [facility] Methotrexate 125 MG/5ML Intr amuscular Solution Prefilled [...] On 11:17AM By Shila Steiner ; [facility] predniSONE 5 MG Oral Tablet 07/31/2025 Provider: Dagmar Lundberg MD Diagnosis: Last Documented On 1:20PM By Lita Barrera ; [facility] Furosemide 40 MG Oral Tablet 07/09/2025 Provider: LONNIE MULBERRY Diagnosis: Last Documented On 11:17AM By Shila Steiner ; [facility] Metoclopramide HCl 10 MG Oral Tablet 07/09/2025 Prov ider: LONNIE MULBERRY Diagnosis: Last Documented On 11:17AM By Shila Steiner ; [facility] Omeprazole 40 MG Oral Capsule [...] On 11:17AM By Shila Steiner ; [facility], [facility] Past Medications on file Magic Mouthwash (L/N/B/M) Oral Solution 11/20/2024 - 11/26/2024 Provider: Osvaldo olson MD Diagnosis: swish, gargle spit 1-2 teasp oons (5-10 mL) every 4-6 hours as needed Last Documented On 5 10:33AM By Dr. Sorensen ; [facility], [facility] HYDROcodone-Acetaminophen 7. 5-325 MG Oral Tablet 11/12/2024 - 11/15/2024 Provider: Osvaldo Sorensen MD Diagnosis: 1 tab every 6 hrs prn pain Last Documented On 12:55PM By Dr. Sorensen ; [facility], [facility] Vitamin C 1000 MG Oral Tablet 11/12/2024 - 01/11/2025 Provider: Osvaldo olson MD Diagnosis: once a day take 1 tablet once daily post surgery Last Documented On 12:55PM By Lita Barrera ; [facility], [facility] Naproxen 500 MG Oral Tablet 11/12/2024 - 12/12/2024 Pr ovider: Osvaldo Sorensen MD Diagnosis: take one tablet twice a day prn following surger y Last Documented On 12:55PM By Lita Barrera ; [facility], [facility] Vitamin C 1000 MG Oral Tablet 08/03/2024 - 10/02/2024 Provider: Osvaldo olson MD Diagnosis: once a day take 1 tablet once daily post surgery Last Documented On 4 9:39AM By Lita Barrera ; [facility], [facility] Naproxen 500 MG Oral Tablet 08/03/2024 - 09/02/2024 Pr ovider: Osvaldo Sorensen MD Diagnosis: take one tablet twice a day prn following surger y Last Documented On 4 9:39AM By Lita Barrera ; [facility], [facility] Chatsworth 5-325 MG OR TABS 06/19/2014 - 07/19/2014 Provider: Jose Long MD Diagnosis: DEGENERATIVE MARY NT DISEASE KNEE Last Documented On 4 3:42PM By Rome Marinelli User ; [facility] Lortab 7.5-500 MG OR TABS 10/17/2012 - 10/22/2012 Prov ider: Osvaldo Sorensen MD Diagnosis: sx 1 //cr Last Documented On 3 1:15PM By Roseanne Yung ; [facility] Naproxen 500 MG [...] Osvaldo Sorensen MD Diagnosis: [facility] [phone] Last Documented On 1 10:49AM By Stacey [...] On 8 10:40AM By Nikky Andrews ; [facility] OxyCONTIN 20 MG OR TB12 08/07/2008 - 08/21/2008 Provid er: Osvaldo Sorensen MD Diagnosis: cb Last Documented On 8 10:34AM By Nikky Andrews ; [facility] Medications Administered Includes: Administered Medications from this encounter No Administered Medications Recorded Vital Signs Includes: Vital Signs from this encounter Vital Name 04/18/2025 11:19A Height (in) 64 Weight (lb) 175 Body Mass Index 30 Body Surface Area 1.8 Note: sjp Last Documented: On 04/18/2025 11:19A M ; [facility] Results Includes: Results discussed during [...] Caffeine use 02/10/2024 Last Documented On 5 11:18AM ; [facility], [facility] No recent change in diet 02/10/2024 Last Documented On 5 11:18AM ; [facility] Not a current smoker. 02/10/2024 Last Documented On 5 11:18AM ; [facility], [facility] Not exercising regularly 02/10/2024 Last Documented On 5 11:18AM ; [facility], [facility] Not using alcohol 02/10/2024 Last Documented On 5 11:18AM ; [facility], [facility] Not using drugs 02/10/2024 Last Documented On 5 11:18AM ; [facility], [facility] Tobacco non-user 02/09/2024 Last Documented On 5 11:18AM ; [facility], [facility] Smoking status : Never smoked/ Recode: 4 06/19/2014 Last Documented On 5 11:18AM ; [facility], [facility] Procedures and Surgical History Includes: Procedures from this encounter Procedures Code Diagnosis Performing Provider Service Location Service Date X-RAY EXAM OF HAND 3 VIEWS (RIGHT) 92756 Other specified rheumatoid arthritis, right hand Osvaldo Sorensen MD [facility] 04/18/2025 Last Documented On 5 3:54PM ; [facility], [facility] Surgical History Last Updated History of History of Gallbladder 2023 Last Documented On 5 11:18AM ; [facility], [facility] Past Surgical History: total wrist, thum b fusion, finger joints 02/10/2024 Last Documented On 5 11:18AM ; [facility], [facility] Medical History Includes: Medical History addressed during this encounter Description Last Updated scleroderma, IBS 02/10/2024 Last Documented On 5 11:18AM ; [facility] History of arthritis 02/10/2024 Last Documented On 5 11:18AM ; [facility], [facility] History of asthma 02/10/2024 Last Documented On 5 11:18AM ; [facility], [facility] History of Fractures 02/10/2024 Last Documented On 5 11:18AM ; [facility], [facility] History of Heartburn / Acid Reflux 02/09 Last Documented On 5 11:18AM ; [facility], [facility] History of History of Rheumatology 02/09 Last Documented On 5 11:18AM ; [facility], [facility] History of Hypertension 02/10/2024 Last Documented On 5 11:18AM ; [facility], [facility] History of osteoporosis 02/10/2024 Last Documented On 5 11:18AM ; [facility], [facility] Family History Includes: Family History addressed during this encounter Description Last Updated Diabetes mellitus 02/10/2024 Last Documented On 5 11:18AM ; [facility], [facility] Family history of cancer 02/10/2024 Last Documented On 5 11:18AM ; [facility], [facility] Family history of osteoporosis 4 Last Documented On 5 11:18AM ; [facility], [facility] Family history of rheumatoid arthritis 0 02/10/2024 Last Documented On 5 11:18AM ; [facility], [facility] Family history of systemic hypertension 02/10/2024 Last Documented On 5 11:18AM ; [facility], [facility] Stroke / Seizures 02/10/2024 Last Documented On 5 11:18AM ; [facility], [facility] Review of Systems Includes: Review of Systems [...] Active Last Documented On 5 12:57PM ; [facility] Encounters Encounter Provider Location Date Check-In Time Check-Out Time Diagnosis Follow Up Osvaldo Sorensen MD [facility] 5 10:47AM 12:39PM Overweight Insurance Includes: Active Insurance Policies Plan Name Member ID Group # Subscriber Relationship Effect apryl Dates 1 - [employer] [id number] Mari lCark Imelda f Clinical Notes Includes: Clinical Notes from this encounter * Progress note Date Encounter Last Documented by 04/18/2025 Follow Up Last documented on 04/22/2025; 2:29 PM, Osvaldo Sorensen MD; [facility] Active Problems & Conditions - Joint [...] weight Care Team - LONNIE SOLANO - SALES PROMOTION MANAGER Notes This dictation was done with [...]
--- OUTSIDE RECORDS SUMMARY | 2025-08-16 07:30 | XMS_ITS | Referral Summary ---
Author Organization [employer] ([place], [place], [place], [place], [place]) Address [address] [place] [address] Care Team Providers Care Shellfish Weigher Name Role Phone Sandoval Tuttle MD Primary Care Provider [phone] Allergies Active Allergy Reactions Criticality Noted Date [...] mg total) by mouth daily. Active pancrelipase, Hxj-Hiyd-Bugk, (Creon) 36,000-114,000- 180,000 unit cpDR capsule Take [...] Date Moreno rded Speak language other than Malay at home Not on file 06/08/2024 Want [...] on file Medical Devices Implanted Type Area Falafel Cart Cook Device Identifier Shelf Expiration Date Model / Serial / Lot Wire C Trcr 0.317vpc0.14mm Ss [id number] - [id number] Implanted:Qty: 4 on 11/14/2024 by Osvaldo Sorensen MD at [facility] IMPLANTS Right: Hand [employer]MED:[employer] 08/07/2029 [id number] / / [id number] Wire C Trcr 0.902cms8.14mm Ss [id number] - [id number] Implanted:Qty: 4 on 11/14/2024 by Osvaldo Sorensen MD at [facility] IMPLANTS Right: Hand [employer]MED:[employer] 11/07/2028 [id number] / / [id number] Insurance [facility] MEDICARE HMO Advance Directives For more information, please contact: [phone] * Full Code (Latest Code Status on File) Date Activated Date Inactivated Comments 11/14/2024 9:15 AM 11/14/2024 4:25 PM Care Teams Shellfish Weigher Relationship Specialty Start Date End Date Sandoval Tuttle MD [address] [place] [facility] [address] [place] [address] PCP - General Family Medicine 11/14/24
--- OUTSIDE RECORDS SUMMARY | 2025-08-16 07:31 | XMS_ITS | Clinical Summary ---
Author Organization [employer] ([place], [place], [place], [place], [place]) Address [address] [place] [address] Care Team Providers Care Miter Cutter Name Role Phone Sandoval Tuttle MD Primary Care Provider [phone] Allergies Active Allergy Reactions Criticality Noted Date [...] mg total) by mouth daily. Active pancrelipase, Wnz-Jivl-Gljs, (Creon) 36,000-114,000- 180,000 unit cpDR capsule Take [...] Date Moreno rded Speak language other than Martiniquais at home Not on file 06/08/2024 Want [...] 11/05/2025 11/05/2024 Medical Devices Implanted Type Area Disability Insurance Hearing Officer Device Identifier Shelf Expiration Date Model / Serial / Lot Wire C Trcr 0.292ygn2.14mm Ss [id number] - [id number] Implanted:Qty: 4 on 11/14/2024 by Osvaldo Sorensen MD at [facility] IMPLANTS Right: Hand [employer] 08/07/2029 [id number] / / [id number] Wire C Trcr 0.533pep1.14mm Ss [id number] - [id number] Implanted:Qty: 4 on 11/14/2024 by Osvaldo Sorensen MD at [facility] IMPLANTS Right: Hand [employer] 11/07/2028 [id number] / / [id number] Insurance [employer] MEDICARE HMO Advance Directives For more information, please contact: [phone] * Full Code (Latest Code Status on File) Date Activated Date Inactivated Comments 11/14/2024 9:15 AM 11/14/2024 4:25 PM Care Teams Miter Cutter Relationship Specialty Start Date End Date Sandoval Tuttle MD [address] [facility] [address] [place] [address] PCP - General Family Medicine 11/14/24
--- OUTSIDE RECORDS SUMMARY | 2025-08-16 07:31 | XMS_ITS | Clinical Summary ---
Author Organization [facility] [place] Address [address] [place] [address] Phone Care Team Providers Care Residential Program Manager Name Role Phone Unavailable Primary Care Provider [...] ve 05/14/2020 2:15 PM EDT [facility] Blood VENOUS BLOOD / Unknown Venipuncture / Unknown 05/14/2020 12:52 PM EDT 05/14/2020 12:52 PM EDT us Dagmar Lundberg MD HEMATOLOGY ORDERABLES Final Result [facility] [address] [facility] , [place] [address] from Last 3 Months or Most Recently Relevant to Health Maintenance Insurance MEDICARE [place] PART [place] [address] [place] [address]
--- OUTSIDE RECORDS SUMMARY | 2025-08-16 07:31 | XMS_ITS ---
Care Plan - [facility], [facility] Created on: August 16, 2025 Yuliana Clarkrandy Flowers .0 : 1960 Sex: Female Author Organization [facility], [facility] Address [address] [facility] [place] [address] Phone Care Team Providers Care Quality Assurance Group Leader Name Role Phone Osvaldo Sorensen MD Unavailable [phone] LONNIE SOLANO Primary Care Provider [phone]
--- NOTE | 2025-08-16 08:35 | NM_ITS ---
FINAL REPORT CLINICAL HISTORY: LT TIB FIB PAIN 8:25 am 24.4 mci tc MDP injected into rt ant FINDINGS: EXISTING RELEVANT IMAGING STUDIES: None TECHNIQUE: The patient was injected with 24.4 mCi of technetium 99-MDP. There is localized focus of intense abnormal uptake in the distal left lower leg. It is unclear if this is in the tibia or fibula. By history, there was significant marrow edema in this region on a recent outside MRI which is not available for direct comparison. Mild abnormal activity at the right ankle is probably degenerative. IMPRESSION: Abnormal activity in the left lower leg, could be related to healing fracture or osteomyelitis. Reviewed, Interpreted and Dictated by Adryan Oropeza MD Transcribed by Carolina Nicholson Authenticated and . [facility]
[2025-08-16] MEDS: SODIUM CHLORIDE 0.9% 10ML SYR (RAD ONLY) 10 ML IV (11:25)
[2025-08-16] MEDS: ISOTOPE MDP (BONE);1 DOSE VIAL IV (11:25)
== END 2025-08-16 23:59 | disposition home or self-care (01) ==
PROVIDERS: PCP Family Medicine; Visit Provider Physician Assistant
DX: N64.89 Other specified disorders of breast (principal); N63.20 Unspecified lump in the left breast, unspecified quadrant; M79.605 Pain in left leg
CPT/HCPCS: 77065; 78306; A9503

== ENCOUNTER 2025-09-13 12:30 | Outpatient (CLI) | payer MEDICARE, SELFPAY ==
--- OUTSIDE RECORDS SUMMARY | 2024-05-02 05:15 | XMS_ITS ---
Author Organization [facility] Address [facility] [address] [place] [id number] Care Team Providers Care Inspector Air Carrier Name Role Phone Sandoval Tuttle Primary Care Provider [phone] Allergies Allergen (clinical drug ingredient) Drug/Non Drug [...] orally once a day Active Vital Signs Weight 180 lbs 05/02/2024 Blood pressure systolic 94 mm Hg 05/02/20 24 Blood pressure diastolic 58 mm Hg 024 Height 65 in 05/02/2024 BMI 29.95 kg/m2 05/02/2024 Encounters Encounter Location Date Provider Diagnosis [facility] 36 [facility] [address] [place], [place] [phone] 05/02/2024 Sandoval Tuttle Dizziness R42 and Asthma, [...] Name:Sandoval Kern ry, 11/01/2025 11:00:00 AM, [address], [address], [place], [place], [phone], Progress Notes * Yuliana PIERCEeDOB: (64 yo F)Acc No.[id number]:05/02/2024 Progress Notes Patient: Mari HILARIO Provider: Eliot Tuttle M.D. :1960 A ge:63 Y S ex:Female Date:05/02/2024 Address:[address] [place], [place] [phone] Subjective: * Chief Complaints: * 1 . [...] * Images: Billing Information: * Visit Code: 98597 Office Visit, Est Pt., Level 3. * Procedure Codes: G2211 Complex e/m visit add on. * Electronic signature of Alice Tuttle MD on 09/13/2025 at 12:33 PM EST Sign off status: Pending * Provider: Eliot Tuttle M.D. Date: 0 05/02/2024 Generated for Marci khalil/Octavia/Elliotransmitting on: 1 11/14/2024 12:33 PM EST History and Physical Notes * [...]
--- OUTSIDE RECORDS SUMMARY | 2024-05-17 06:30 | XMS_ITS ---
Author Organization [facility] Address [facility] 36 [facility] [address] [place] [phone] Care Team Providers Care Transfer Station Operator Name Role Phone Sandoval Tuttle Primary Care Provider [phone] REASON FOR VISIT 6 month check up Encounters Encounter Location Date Provider Diagnosis [facility] [address] [place] [id number] 05/17/2024 Sandoval Tuttle Plan Of Treatment Next Appt Details Provider Name:Sandoval Kern ry, 11/01/2025 11:00:00 AM, [address], [address], [place], [place], [phone], Progress Notes * Papa PIERCEOB: (64 yo F)Acc No.[id number]:05/17/2024 Progress Notes Patient: Mari HILARIO Provider: Eliot Tuttle M.D. :1960 A ge:63 Y S ex:Female Date:05/17/2024 [facility] Subjective: * Chief Complaints: * 1 . 6 month check up. * Medical History: Objective: * Vitals: Assessment: Plan: * Treatment: * Images: Billing Information: * Visit Code: * Procedure Codes: * Electronic signature of Alice Tuttle MD on 09/13/2025 at 12:35 PM EST Sign off status: Pending * Provider: Eliot Tuttle M.D. Date: 0 05/17/2024 Generated for Marci khalil/Octavia/eTransmitting on: 1 11/14/2024 12:35 PM EST
--- OUTSIDE RECORDS SUMMARY | 2024-08-10 10:15 | XMS_ITS ---
Author Organization [facility] Address [facility] [address] [phone] Care Team Providers Care Vp Site Name Role Phone Sandoval Tuttle Primary Care Provider [phone] Allergies Allergen (clinical drug ingredient) Drug/Non Drug [...] Duration: 5 day(s) 08/10/2024 Active Vital Signs Weight 181 lbs 08/10/2024 Blood pressure systolic 106 mm Hg 08/10/20 24 Blood pressure diastolic 62 mm Hg 024 Heart Rate 72 /min 08/10/2024 Height 65 in 08/10/2024 BMI 30.12 kg/m2 08/10/2024 Encounters Encounter Location Date Provider Diagnosis [facility]10 [facility] [address] [phone] 08/10/2024 Sandoval Tuttle Acute cough R 05.1 [address], [place], [phone], Progress Notes * Yuliana PIERCEeDOB: 1 (64 yo F)Acc No.[id number]:08/10/2024 Progress Notes Patient: Mari HILARIO Provider: Eliot Tuttle M.D. :1960 A ge:63 Y S ex:Female Date:08/10/2024 [facility] Subjective: * Chief Complaints: * 1 . [...] G 2211 Complex e/[place], [address] CAPILLARY BLOOD DRAW, 72279 CBC WITH AUTO DIFF * Follow Up: p rn * Images: Billing Information: * Visit Code: 16116 Office Visit, Est Pt., Level 3. * Procedure Codes: G2211 Complex e/[place]. [address] CAPILLARY BLOOD DRAW. 69734 CBC WITH AUTO DIFF. * Electronic signature of Alice Tuttle MD on 09/13/2025 at 12:33 PM EST Sign off status: Pending * Provider: Eliot Tuttle M.D. Date: 10/10/2023 Generated for Marci khalil/Octavia/Kellenitting on: 11/14/2024 12:33 PM EST History and Physical [...]
--- OUTSIDE RECORDS SUMMARY | 2024-08-22 05:30 | XMS_ITS ---
Author Organization [facility] Address 1210 [facility] 36 [facility] [address] [place] [phone] Care Team Providers Care Sec Reporting Consultant Name Role Phone Sandoval Tuttle Primary Care Provider [phone] REASON FOR VISIT ear ache ,dry cough Encounters Encounter Location Date Provider Diagnosis [facility] [address] [place] [id number] 08/22/2024 Sandoval Tuttle Plan Of Treatment Next Appt Details Provider Name:Sandoval Kern ry, 11/01/2025 11:00:00 AM, [address], [address], [place], [place], [phone], Progress Notes * Yuliana PIERCEeDOB: (64 yo F)Acc No.[id number]:08/22/2024 Progress Notes Patient: Mari HILARIO Provider: Eliot Tuttle M.D. :1960 A ge:63 Y S ex:Female Date:08/22/2024 [facility] Subjective: * Chief Complaints: * 1 . Ear ache ,dry cough. * Medical History: Objective: * Vitals: Assessment: Plan: * Treatment: * Images: Billing Information: * Visit Code: * Procedure Codes: * Electronic signature of Alice Tuttle MD on 09/13/2025 at 12:32 PM EST Sign off status: Pending * Provider: Eliot Tuttle M.D. Date: 10/22/2023 Generated for Marci khalil/Octavia/eTransmitting on: 1 11/14/2024 12:32 PM EST
--- OUTSIDE RECORDS SUMMARY | 2024-10-09 04:45 | XMS_ITS ---
Author Organization [facility] Address [facility] [address] [place] [phone] Care Team Providers Care Mincing Machine Operator Name Role Phone Sandoval Tuttle Primary Care Provider [phone] Paulette Moreno Unavailable [phone] Allergies Allergen (clinical drug ingredient) Drug/Non Drug [...] 10/09/2024 Encounters Encounter Location Date Provider Diagnosis [facility] 1210 [facility] [address] [phone] 10/09/2024 Paulette Moreno URI (upper respirato ry [...] [address] , [place], [place], [phone], Progress Notes * Yuliana PIERCEeDOB: (64 yo F)Acc No.[id number]:10/09/2024 Progress Notes Patient: Mari HILARIO Provider: JEFF Hu :1960 A ge:63 Y S ex:Female Date:10/09/2024 Address:[address] [place], [place] [address] Pcp:Sandoval Tuttle Subjective: * Chief Complaints: * [...] G 2211 Complex e/[place], [address] Flu Test- Nasal Swab, Modifiers: QW , 40348 COVID TEST IN HOUSE, Modifiers: QW , 3074F SYST BP LT 130 MM HG, 3078F DIAST BP < 80 MM HG * Follow Up: p rn * Images: Billing Information: * Visit Code: 83538 Office Visit, Est Pt., Level 3. * Procedure Codes: G2211 Complex e/[place]. [address] Flu Test- Nasal Swab. Modifiers: QW 54386 COVID TEST IN HOUSE. Modifiers: QW 3074F SYST BP LT 130 MM HG. 3078F DIAST BP < 80 MM HG. * Electronic signature of Lynn yunstephen Moreno APRN on 09/13/2025 at 12:32 PM EST Sign off status: Pending * Provider: JEFF Hu Date: Generated for Marci khalil/Octavia/eTransmitting on: 11/14/2024 12:32 PM EST History and Physical Notes * [...]
--- OUTSIDE RECORDS SUMMARY | 2024-10-31 05:00 | XMS_ITS ---
[facility] [address] [phone] Care Team Providers Care Vest Baster Name Role Phone Sandoval Tuttle Primary Care Provider [phone] Allergies Allergen (clinical drug ingredient) Drug/Non Drug [...] Provider Diagnosis [facility] [address] [phone] 10/31/2024 Sandoval Tuttle HTN (hypertension) I 10 [...] [place], 11/01/2025 11:00:00 AM, [address] [facility] [address], [address], [place], [place], [phone], Progress Notes * Yuliana PIERCEeDOB: (64 yo F)Acc No.[id number]:10/31/2024 Progress Notes Patient: Mari HILARIO Provider: Eliot Tuttle M.D. :1960 A ge:63 Y S ex:Female Date:10/31/2024 Address:[address] [place], [place] [phone] Subjective: * Chief Complaints: * 1 . [...] * Images: Billing Information: * Visit Code: 32271 Office Visit, Est Pt., Level 4. * Procedure Codes: G2211 Complex e/m visit add on. * Electronic signature of Alice Tuttle MD on 09/13/2025 at 12:35 PM EST Sign off status: Pending * Provider: Eliot Tuttle M.D. Date: 0 10/31/2024 Generated for Marci khalil/Octavia/Holly on: 1 11/14/2024 12:35 PM EST History and Physical Notes * [...]
--- OUTSIDE RECORDS SUMMARY | 2025-05-01 06:30 | XMS_ITS ---
Author Organization [facility] Address 1210 [facility] [address] [place] [phone] Care Team Providers Care Operations And Maintenance Manager Name Role Phone Sandoval Tuttle Primary Care Provider Allergies Allergen (clinical drug ingredient) Drug/Non Drug Allergy documented on EMR Reaction Allergy Type Onset Date Status metronidazole Flagyl stomach upset Drug Allergy Active Penicillin rash Drug Allergy Active REASON FOR VISIT 6 month f/u Medications Medication SIG (Take, Route, Frequency, Duration) Notes Start Date End Date Status Metoclopramide HCl 10 MG 1 tablet before meals Orally Twice a day; Duration: 90 days Active Verapamil HCl 80 MG 1 tab(s) orally once a day Active Omeprazole 40 MG 1 capsule 1/2 to 1 h our before morning meal Orally Once a day; Duration: 90 days Active Lisinopril 10 MG 1 tab(s) orally once a day Active Furosemide 40 MG 1 tablet Orally Once a day; Duration: 90 days Active Symbicort 80-4.5 MCG/ACT 2 puffs Inhalat ion Two times a day; Duration: 90 days Active Atorvastatin Calcium 40 MG TAKE 1/2 TABL ET EVERY NIGHT AT BEDTIME FOR CHOLESTEROL; Duration: 90 Active Fluticasone Propionate 50 MCG/ACT USE 1 SPRAY NASALLY ONE TIME DAILY; Duration: 90 Active busPIRone HCl 10 MG 1 tablet Orally Twic e a day; Duration: 90 days Active Folic Acid 1 MG 3 tab orally once a day Active Centrum Silver Ultra Womens - 1 tab(s) orally once a day; Duration: 90 day(s) 10/24/2013 Active Meclizine HCl 25 MG 1 tablet as needed Orally every 8 hrs 05/02/2024 Active Famotidine 20 MG 1 tab(s) orally bedtime Active Montelukast Sodium 10 MG 1 tab(s) orally once a day; Duration: 90 days Active Loratadine 10 MG 1 tablet Orally Once a day; Duration: 30 day(s) Active predniSONE 5 MG 1 tab orally once a day Active Methotrexate 2.5 MG 8 tab orally once weekly 12/18 Active Problems Problem Type SNOMED Code ICD Code Onset Dates Problem Status W/U Status Risk Notes Problem Body mass index 30+ - obesity (611256827) BMI 30.0-30.9,a dult (Z68.30) Active confirmed Vital Signs Weight 181 lbs 05/01/2025 Blood pressure systolic 102 mm Hg 05/01/20 25 Blood pressure diastolic 60 mm Hg 025 Height 65 in 05/01/2025 BMI 30.12 kg/m2 05/01/2025 Encounters Encounter Location Date Provider Diagnosis [facility] [address] [place] [id number] 05/01/2025 Sandoval Tuttle HTN (hypertension) I 10 ; Bloating R14.0 ; Asthma, unspecified asthma severity, unspecified whether complicated, unspecified whether persistent J45.909 and BMI 30.0-30.9,adult Z68.30 Assessments Encounter Date Diagnosis (ICD Code) Assessment Notes Treatment Notes Treatment Clinical Notes Section Notes 05/01/2025 HTN (hypertension) (ICD-10 - I10) 05/01/2025 Bloating (ICD-10 - R14.0) OTC probiotic recommended 05/01/2025 Asthma, unspecified asthma severity, unspecified whether complicated, unspecified whether persistent (ICD-10 - J45.909) 05/01/2025 BMI 30.0-30.9,adult (ICD-10 - Z68.30) Plan Of Treatment Medication Medication Name Sig Start Date Stop Date Notes Verapamil HCl 80 MG 1 tab(s) orally once a day Lisinopril 10 MG 1 tab(s) orally once a day Treatment Notes Assessment Notes Bloating OTC probiotic recomm ended Next Appt Details Follow Up: 6 Months, Reason: Provider Name:Sandoval bell, 11/01/2025 11:00:00 AM, [address], [place], [id number], Progress Notes * Papa PIERCEOB: 1 (64 yo F)Acc No.[id number]:05/01/2025 Progress Notes Patient: Mari HILARIO Provider: Eliot Tuttle M.D. :1960 A ge:64 Y S ex:Female Date:05/01/2025 Address:[address] [place] [address] Subjective: * Chief Complaints: * 1 . 6 month f/u. * HPI: C ardiology: 64 year old female presents with c/o Blood Pressure Elevated?Pt here for 6 mo check up on hypertension. Pt states she is doing well and does not have any concerns. c/o Hyperlipidemia P t is fasting today. * ROS: D ERMATOLOGY: no [...] Raynaud's, Asthma, COVID 19, Dx: 2019, Skin cancer, Colon polyps. * Surgical History: B ilateral Hips , Bilateral Knees , Bilateral Wrists , finger 2 on lt hand one on rt hand , LT lbow , Colonoscopy 2021, 2021 , Cholecystectomy 01/22/2011, RT Wrist Replacement 07/05/2011, Thumb [...] tab orally once a day , Taking Famotidine 20 MG Tablet 1 tab(s) orally bedtime , Taking Montelukast Sodium 10 MG Tablet 1 tab(s) orally once a day , Taking Meclizine HCl 25 MG Tablet 1 tablet as needed Orally every 8 hrs , Taking Symbicort 80-4.5 MCG/ACT Aerosol 2 puffs Inhalation Two times a day , Taking Atorvastatin Calcium 40 MG Tablet TAKE 1/2 TABLET EVERY NIGHT AT BEDTIME FOR CHOLESTEROL , Taking Lisinopril 10 MG Tablet 1 tab(s) orally once a day , Taking Verapamil HCl 80 MG Tablet 1 tab(s) orally once a day , Taking Fluticasone Propionate 50 MCG/ACT Suspension USE 1 SPRAY NASALLY ONE TIME DAILY , Taking busPIRone HCl 10 MG Tablet 1 tablet Orally Twice a day , Taking Metoclopramide HCl 10 MG Tablet 1 tablet before meals Orally Twice a day , Taking Omeprazole 40 MG Capsule Delayed Release 1 capsule 1/2 to 1 hour before morning meal Orally Once a day , Taking Furosemide 40 MG Tablet 1 tablet Orally Once a day , Discontinued Promethazine-DM 6.25-15 MG/5ML Syrup 5 ml as needed Orally every 6 hrs prn , Medication List reviewed and reconciled with the patient * Allergies: P enicillin: rash, Flagyl: stomach upset. Objective: * Vitals: W t: 181, Temp: 98.1, BP: 102/60, Nurse: marzena, Ht: 65, BMI:30.12. * Examination: G eneral Examination: General Appearance: N AD, sitting in a wheel chair. H eart: R SR. L ungs: c lear to auscultation. S kin: n o rash. B ack: d orsal kyphosis. E xtremities: c ontractures noted in hands. Assessment: * Assessment: 1. H TN (hypertension) - I10 (Primary) 2 . B loating - R14.0 ?3. A sthma, unspecified asthma severity, unspecified whether complicated, unspecified whether persistent - J45.909 4 . B PA 30.0-30.9,adult - Z68.30 Plan: * Treatment: 2. B loating Notes: OTC probiotic recommended * Procedure Codes: G 2211 Complex e/m visit add on, 1036F TOBACCO NON-USER, G8950 PREHTN/HTN BP DOC INDCD F/U DOC, G8752 MOST RECENT SYSTOLIC BP < 140MM HG, G8754 MOST RECENT DIASTOLIC BP < 90MM HG * Follow Up: 6 Months * Images: Billing Information: * Visit Code: 04766 Office Visit, Est Pt., Level 3. * Procedure Codes: G2211 Complex e/m visit add on. 1036F TOBACCO NON-USER. G8950 PREHTN/HTN BP DOC INDCD F/U DOC. G8752 MOST RECENT SYSTOLIC BP < 140MM HG. G8754 MOST RECENT DIASTOLIC BP < 90MM HG. * Electronic signature of Alice Tuttle MD on 09/13/2025 at 12:34 PM EST Sign off status: Pending * Provider: Eliot Tuttle M.D. Date: 0 05/01/2025 Generated for Marci khalil/Octavia/Himanshusmitting on: 1 11/14/2024 12:34 PM EST History and Physical Notes * HPI (History of Present Illness) Category Sub-Category Detail Notes Category Not es Cardiology Blood Pressure Elevated Pt here for 6 mo check up on hypertension. Pt states she is doing well and does not have any concerns Hyperlipidemia Pt is fasting today Examination Category Sub-Category Detail Notes Category Not es General Examination Heart: RSR Lungs: clear to auscultatio n Extremities: contractures noted i n hands General Appearance: NAD, sitting in a wh eel chair Skin: no rash Back: dorsal kyphosis
--- OUTSIDE RECORDS SUMMARY | 2025-06-14 06:30 | XMS_ITS ---
Author Organization [facility] Address [facility] [address] [place] [phone] Care Team Providers Care Freight Car Repairer Name Role Phone Sandoval Tuttle Primary Care Provider Allergies Allergen (clinical drug ingredient) Drug/Non Drug Allergy documented on EMR Reaction Allergy Type Onset Date Status metronidazole Flagyl stomach upset Drug Allergy Active Penicillin rash Drug Allergy Active Results Component Value Reference Range Notes CBC Venipuncture (in house) Reviewed date:06/17/2025 04:25:16 PM Interpretation: Performing Lab: Notes/Report: wbc 12.7 3.5 - 10 lymph 7.1% 15 - 50 mid 2.2% 2 - 15 gran 90.7% 35 - 80 rbc 4.01 3.5 - 5.5 hgb 13.7 11.5 - 16.5 hct 41.3 35 - 55 mcv 103.0 75 - 100 mch 34.2 25 - 35 mchc 33.2 31 - 38 platlet 370 100 - 400 REASON FOR VISIT cold not getting better, poss infection Medications Medication SIG (Take, Route, Frequency, Duration) Notes Start Date End Date Status Omeprazole 40 MG 1 capsule 1/2 to 1 h our before morning meal Orally Once a day; Duration: 90 days Active Furosemide 40 MG 1 tablet Orally Once a day; Duration: 90 days Active Symbicort 80-4.5 MCG/ACT 2 puffs Inhalat ion Two times a day; Duration: 90 days Active busPIRone HCl 10 MG 1 tablet Orally Twic e a day; Duration: 90 days Active Metoclopramide HCl 10 MG 1 tablet before meals Orally Twice a day; Duration: 90 days Active Meclizine HCl 25 MG 1 tablet as needed Orally every 8 hrs 05/02/2024 Active Methotrexate 2.5 MG 8 tab orally once weekly 12/18 Active Centrum Silver Ultra Womens - 1 tab(s) orally once a day; Duration: 90 day(s) 10/24/2013 Active Folic Acid 1 MG 3 tab orally once a day Active Famotidine 20 MG 1 tab(s) orally bedtime Active Loratadine 10 MG 1 tablet Orally Once a day; Duration: 30 day(s) Active Promethazine-DM 6.25-15 MG/5ML 5 mL as needed Orally every 6 hrs 06/14/2025 Active predniSONE 5 MG 1 tab orally once a day Active Cefdinir 300 MG 1 capsules Orally tw ice a day; Duration: 7 days 06/14/2025 Active Verapamil HCl 80 MG 1 tab(s) orally once a day; Duration: 90 days Active Fluticasone Propionate 50 MCG/ACT USE 1 SPRAY NASALLY ONE TIME DAILY; Duration: 90 Active Montelukast Sodium 10 MG 1 tab(s) orally once a day; Duration: 90 days Active Atorvastatin Calcium 40 MG 1/2 tablet at bedtime Orally Once a day; Duration: 90 days Active Lisinopril 10 MG 1 tab(s) orally once a day; Duration: 90 days Active Vital Signs Weight 180.6 lbs 06/14/2025 Blood pressure systolic 108 mm Hg 06/14/20 25 Blood pressure diastolic 68 mm Hg 025 Height 65 in 06/14/2025 BMI 30.05 kg/m2 06/14/2025 Encounters Encounter Location Date Provider Diagnosis [facility] 1210 [facility] 36 [facility] [address] [place], [place] [phone] 06/14/2025 Sandoval Tuttle Acute cough R 05.1 Assessments Encounter Date Diagnosis (ICD Code) Assessment Notes Treatment Notes Treatment Clinical Notes Section Notes 06/14/2025 Acute cough (ICD-10 - R05.1) Plan Of Treatment Medication Medication Name Sig Start Date Stop Date Notes Promethazine-DM 6.25-15 MG/5ML 5 mL as n eeded Orally every 6 hrs 06/14/2025 Cefdinir 300 MG 1 capsules Orally tw ice a day; Duration: 7 days 06/14/2025 Next Appt Details Follow Up: via phone to repo rt progress, Reason: Provider Name:Sandoval Kern ry, 11/01/2025 11:00:00 AM, 1210 [facility] 36 [facility], [address], [place], [place], [id number], Progress Notes * Yuliana PIERCEeDOB: 1 (64 yo F)Acc No.[id number]:06/14/2025 Progress Notes Patient: Mari HILARIO Provider: Eliot Tuttle M.D. :1960 A ge:64 Y S ex:Female Date:06/14/2025 Address:[address] [place], [place] [phone] Subjective: * Chief Complaints: * 1 . Cold not getting better, poss infection. * HPI: E NT/respiratory: 64 year old female presents with c/o cough P t states she has had a cough since last Tuesday with thick drainage. Pt states she feels like its gone to her chest. Pt states she has had some sinus pressure. * ROS: D ERMATOLOGY: no R rosemary. [...] . * Social History: C URRENT TOBACCO USE: No S moking Status: Patient does NOT smoke, [...] Tablet 1 tab(s) orally bedtime , Taking Meclizine HCl 25 MG Tablet 1 tablet as needed Orally every 8 hrs , Taking Symbicort 80-4.5 MCG/ACT Aerosol 2 puffs Inhalation Two times a day , Taking busPIRone HCl 10 MG Tablet 1 tablet Orally Twice a day , Taking Metoclopramide HCl 10 MG Tablet 1 tablet before meals Orally Twice a day , Taking Omeprazole 40 MG Capsule Delayed Release 1 capsule 1/2 to 1 hour before morning meal Orally Once a day , Taking Furosemide 40 MG Tablet 1 tablet Orally Once a day , Taking Montelukast Sodium 10 MG Tablet 1 tab(s) orally once a day , Taking Atorvastatin Calcium 40 MG Tablet 1/2 tablet at bedtime Orally Once a day , Taking Fluticasone Propionate 50 MCG/ACT Suspension USE 1 SPRAY NASALLY ONE TIME DAILY , Taking Lisinopril 10 MG Tablet 1 tab(s) orally once a day , Taking Verapamil HCl 80 MG Tablet 1 tab(s) orally once a day , Medication List reviewed and reconciled with the patient * Allergies: P enicillin: rash, Flagyl: stomach upset. Objective: * Vitals: W t: 180.6, Temp: 97.9, BP: 108/68, Nurse: MARQUISE, Ht: 65, BMI:30.05. * Examination: G eneral Examination: General Appearance: N AD, sitting in a wheel chair. O ral cavity: m inimal erythema. H eart: R SR. L ungs: g ood air entry bilaterally, coarse breath sounds present. S kin: n o rash. B ack: d orsal kyphosis. E xtremities: c ontractures noted in hands. Assessment: * Assessment: 1. A cute cough - R05.1 (Primary) Plan: * Treatment: Value Reference Range w bc 12.7 3.5 - 10 * l ymph 7.1% 15 - 50 * m id 2.2% 2 - 15 * g ran 90.7% 35 - 80 * r bc 4.01 3.5 - 5.5 * h gb 13.7 11.5 - 16.5 * h ct 41.3 35 - 55 * m cv 103.0 75 - 100 * m ch 34.2 25 - 35 * m chc 33.2 31 - 38 * p latlet 370 100 - 400 * WoodRonaLisbeth 06/14/2025 12:27:0 1 PM EDT > Provider reviewed results while patient in office. * Procedure Codes: G 2211 Complex e/[place], [address] CBC WITH AUTO DIFF, 41981 VENIPUNCT, ROUTINE*, 1036F TOBACCO NON-USER, G8752 MOST RECENT SYSTOLIC BP < 140MM HG, G8754 MOST RECENT DIASTOLIC BP < 90MM HG, G8783 BP SCR PRFRM RCMDD DEFIND SCR INTVL * Follow Up: v ia phone to report progress * Images: Billing Information: * Visit Code: 30165 Office Visit, Est Pt., Level 3. * Procedure Codes: G2211 Complex e/[place]. [address] CBC WITH AUTO DIFF. 50295 VENIPUNCT, ROUTINE*. 1036F TOBACCO NON-USER. G8752 MOST RECENT SYSTOLIC BP < 140MM HG. G8754 MOST RECENT DIASTOLIC BP < 90MM HG. G8783 BP SCR PRFRM RCMDD DEFIND SCR INTVL. * Electronic signature of Alice Tuttle MD on 09/13/2025 at 12:32 PM EST Sign off status: Pending * Provider: Eliot Tuttle M.D. Date: 0 06/14/2025 Generated for Marci khalil/Octavia/eTkacysmitting on: 11/14/2024 12:32 PM EST History and Physical Notes * HPI (History of Present Illness) Category Sub-Category Detail Notes Category Not es ENT/respiratory cough Pt states she branham s had a cough since last Tuesday with thick drainage. Pt states she feels like its gone to her chest. Pt states she has had some sinus pressure Examination Category Sub-Category Detail Notes Category Not es General Examination Heart: RSR Lungs: good air entry bilat erally, coarse breath sounds present Extremities: contractures noted i n hands General Appearance: NAD, sitting in a wh eel chair Skin: no rash Oral cavity: minimal erythema Back: dorsal kyphosis
--- OUTSIDE RECORDS SUMMARY | 2025-06-24 09:15 | XMS_ITS ---
Author Organization [facility] Address 1210 [facility] [address] [place] [phone] Care Team Providers Care Architectural Draftsman Name Role Phone Sandoval Tuttle Primary Care Provider Allergies Allergen (clinical drug ingredient) Drug/Non Drug Allergy documented on EMR Reaction Allergy Type Onset Date Status metronidazole Flagyl stomach upset Drug Allergy Active Penicillin rash Drug Allergy Active Results Component Value Reference Range Notes CBC Venipuncture (in house) Reviewed date:06/25/2025 10:56:26 AM Interpretation: Performing Lab: Notes/Report: wbc 12.6 3.5 - 10 lymph 6.4% 15 - 50 mid 7.5% 2 - 15 gran 86.1% 35 - 80 rbc 4.19 3.5 - 5.5 hgb 14.1 11.5 - 16.5 hct 43.4 35 - 55 mcv 103.5 75 - 100 mch 33.8 25 - 35 mchc 32.6 31 - 38 platlet 412 100 - 400 REASON FOR VISIT Needs more antibiotics Medications Medication SIG (Take, Route, Frequency, Duration) Notes Start Date End Date Status Methotrexate 2.5 MG 8 tab orally once weekly 12/18 Active Centrum Silver Ultra Womens - 1 tab(s) orally once a day; Duration: 90 day(s) 10/24/2013 Active Folic Acid 1 MG 3 tab orally once a day Active Famotidine 20 MG 1 tab(s) orally bedtime Active Meclizine HCl 25 MG 1 tablet as needed Orally every 8 hrs 05/02/2024 Active Loratadine 10 MG 1 tablet Orally Once a day; Duration: 30 day(s) Active predniSONE 5 MG 1 tab orally once a day Active Verapamil HCl 80 MG 1 tab(s) orally once a day; Duration: 90 days Active Promethazine-DM 6.25-15 MG/5ML 5 mL as needed Orally every 6 hrs 06/14/2025 Active Montelukast Sodium 10 MG 1 tab(s) orally once a day; Duration: 90 days Active Atorvastatin Calcium 40 MG 1/2 tablet at bedtime Orally Once a day; Duration: 90 days Active Fluticasone Propionate 50 MCG/ACT USE 1 SPRAY NASALLY ONE TIME DAILY; Duration: 90 Active Lisinopril 10 MG 1 tab(s) orally once a day; Duration: 90 days Active Zithromax Z-Juan 250 MG as directed Orall y daily; Duration: 5 days 06/24/2025 Active Furosemide 40 MG 1 tablet Orally Once a day; Duration: 90 days Active Symbicort 80-4.5 MCG/ACT 2 puffs Inhalat ion Two times a day; Duration: 90 days Active busPIRone HCl 10 MG 1 tablet Orally Twic e a day; Duration: 90 days Active Metoclopramide HCl 10 MG 1 tablet before meals Orally Twice a day; Duration: 90 days Active Omeprazole 40 MG 1 capsule 1/2 to 1 h our before morning meal Orally Once a day; Duration: 90 days Active Vital Signs Blood pressure systolic 110 mm Hg 06/24/20 25 Blood pressure diastolic 68 mm Hg 025 Height 65 in 06/24/2025 Encounters Encounter Location Date Provider Diagnosis [facility] 1210 [facility] 36 [facility] [address] [place] [phone] 06/24/2025 Sandoval Tuttle Acute cough R 05.1 Assessments Encounter Date Diagnosis (ICD Code) Assessment Notes Treatment Notes Treatment Clinical Notes Section Notes 06/24/2025 Acute cough (ICD-10 - R05.1) Plan Of Treatment Medication Medication Name Sig Start Date Stop Date Notes Zithromax Z-Juan 250 MG as directed Orall y daily; Duration: 5 days 06/24/2025 Next Appt Details Follow Up: via phone to repo rt progress, Reason: Provider Name:Sandoval Kern ry, 11/01/2025 11:00:00 AM, [place] [place] 36 [facility], [address], [place], [phone], Progress Notes * Papa PIERCEOB: 1 (64 yo F)Acc No.[id number]:06/24/2025 Progress Notes Patient: Mari HILARIO Provider: Eliot Tuttle M.D. :1960 A ge:64 Y S ex:Female Date:06/24/2025 [address] Subjective: * Chief Complaints: * 1 . Needs more antibiotics. * HPI: E NT/respiratory: 64 year old female presents with c/o cough P t complains of ongoing cough. Pt was seen 06/14 and rx'd Cefdinir for bacterial infection. Pt has completed abx and states she still has chest congestion as well. * Medical History: H ypertension, Hyperlipidemia, Osteoporosis, [...] tab(s) orally once a day , Taking Promethazine-DM 6.25-15 MG/5ML Syrup 5 mL as needed Orally every 6 hrs , Discontinued Cefdinir 300 MG Capsule 1 capsules Orally twice a day , Medication List reviewed and reconciled with the patient * Allergies: P enicillin: rash, Flagyl: stomach upset. Objective: * Vitals: W t: Not Taken - Declined by Patient, Temp: 97.8, BP: 110/68, Nurse: marzena, Ht: 65. * Examination: G eneral Examination: General Appearance: [...] * Treatment: Value Reference Range w bc 12.6 3.5 - 10 * l ymph 6.4% 15 - 50 * m id 7.5% 2 - 15 * g ran 86.1% 35 - 80 * r bc 4.19 3.5 - 5.5 * h gb 14.1 11.5 - 16.5 * h ct 43.4 35 - 55 * m cv 103.5 75 - 100 * m ch 33.8 25 - 35 * m chc 32.6 31 - 38 * p latlet 412 100 - 400 * Lisbeth Muir 06/24/2025 02:46: 15 PM EDT > Provider reviewed results while patient in office. * Procedure Codes: G 2211 Complex e/[place], [address] CBC WITH AUTO DIFF, 81549 VENIPUNCT, ROUTINE*, 1036F TOBACCO NON-USER, G8783 BP SCR PRFRM RCMDD DEFIND SCR INTVL, G8752 MOST RECENT SYSTOLIC BP < 140MM HG, G8754 MOST RECENT DIASTOLIC BP < 90MM HG, 3074F SYST BP LT 130 MM HG, 3078F DIAST BP < 80 MM HG * Follow Up: v ia phone to report progress * Images: Billing Information: * Visit Code: 30263 Office Visit, Est Pt., Level 3. * Procedure Codes: G2211 Complex e/[place]. [address] CBC WITH AUTO DIFF. 52332 VENIPUNCT, ROUTINE*. 1036F TOBACCO NON-USER. G8783 BP SCR PRFRM RCMDD DEFIND SCR INTVL. G8752 MOST RECENT SYSTOLIC BP < 140MM HG. G8754 MOST RECENT DIASTOLIC BP < 90MM HG. 3074F SYST BP LT 130 MM HG. 3078F DIAST BP < 80 MM HG. * Electronic signature of Alice Tuttle MD on 09/13/2025 at 12:34 PM EST Sign off status: Pending * Provider: Eliot Tuttle M.D. Date: 0 06/24/2025 Generated for Marci khalil/Octavia/eTkacysmitting on: 1 11/14/2024 12:34 PM EST History and Physical Notes * HPI (History of Present Illness) Category Sub-Category Detail Notes Category Not es ENT/respiratory cough Pt complains of ongoing cough. Pt was seen 06/14 and rx'd Cefdinir for bacterial infection. Pt has completed abx and states she still has chest congestion as well Examination Category Sub-Category Detail Notes Category Not es General Examination Heart: RSR Lungs: good air entry bilat erally, coarse breath sounds present Extremities: contractures noted i n hands General Appearance: NAD, sitting in a wh eel chair Skin: no rash Oral cavity: minimal erythema Back: dorsal kyphosis
--- OUTSIDE RECORDS SUMMARY | 2025-09-13 12:32 | XMS_ITS | Clinical Summary ---
Author Organization [facility] Address [address] [place] [address] Care Team Providers Care School Psychological Examiner Name Role Phone Unavailable Primary Care Provider [...] 03/18/2013 03/18/2008, 02/07, 02/05/2005, Additional history exists [id number] Vaccine (2024- season) 2025 06/08/2021, 01/09/2021, 12/12/2020 [...] Narrative SUNQUEST - 03/21/2008 3:01 PM EDT [facility] MR #: [id number] [facility] [place] [id number] 1960 (Age: 47) FU Collect Date: 03/18/2008 00:00 Receipt Date: 03/19/2008 10:07 Page 1 DEPARTMENT OF PATHOLOGY AND LABORATORY MEDICINE CYTOPATHOLOGY REPORT Email: [email or web address] ATTENDING MD/Practitioner: Emma Ochoa MD Service: [facility] Location: [facility] Reported: 03/21/2008 15:01 Collected: 03/18/2008 00:00 INTERPRETATION A. THIN PREP (CERVICAL/VAGINAL): NEGATIVE FOR INTRAEPITHELIAL LESION OR MALIGNANCY. SATISFACTORY FOR EVALUATION; TRANSFORMATION ZONE COMPONENT CANNOT BE DEFINITIVELY IDENTIFIED DUE TO THE PRESENCE OF ATROPHY OR OTHER HORMONAL CHANGES. Slide scanned and imaged by [employer] ThinPrep Imaging System with manual review of [...] results is suggested (please call Microbiology at [phone] for results). CLINICAL INFORMATION: Menstrual History: Postmenopausal Date of Last Menstrual Period: {Not Provided} Other Clinical Conditions: If ASCUS and > 24 years of age, HPV/DNA testing requested. SPECIMEN DESCRIPTION: A: THIN PREP (CERVICAL/VAGINAL) THIN PREP PROCESS CELLULAR ENHANCEMENT ICD: V76.2 CERVIX, SPECIAL SCREENING FOR MALIGNANT NEOPLASM F: A; RT IMAGE [id number] SNOMED CODES: A; [id number] In cases where a pathologist has signed out the report, the service has been rendered in part by a resident. The signing pathologist has performed and is responsible for the reported pathologic evaluation. us Historical Provider LAB PATHOLOGY ORDERABLES Fin al Result [facility] from Last 3 Months or Most Recently Relevant to Health Maintenance
--- OUTSIDE RECORDS SUMMARY | 2025-09-13 12:32 | XMS_ITS | Clinical Summary ---
[facility] Organization [facility] Address [address] [place] [address] Care Team Providers Care Policy Issue Clerk Name Role Phone Sandoval Tuttle MD Primary Care Provider [phone] Social History Tobacco Use Types Packs/Day Years [...] 07/10/2018 HEPATITIS C SCREENING Completed 05/14/2020 Insurance [facility] MEDICARE ADVANTAGE Care Teams Policy Issue Clerk Relationship Specialty Start Date End Date Sandoval Tuttle MD [address] [place] [facility] [address] [place] [address] PCP - General Family Medicine 01/06/23
--- OUTSIDE RECORDS SUMMARY | 2025-09-13 12:34 | XMS_ITS | Patient Health Record ---
[facility] Address [address] [facility] [address] [place] [id number] Care Team Providers Care Client Solutions Specialist Name Role Phone Sandoval Tuttle Primary Care Provider Paulette Moreno Unavailable [phone] Allergies Allergen (clinical drug ingredient) Drug/Non Drug [...] (18-64yrs)-trivalent- medicare pts ID Intradermal 07/04/2013 Administered mGkrhffc-mmlcwvrcr-wj dicare pts. IM Intramuscular 08/11/2011 Administered oMjyoaeh-zhktymmxk-sl dicare pts. IM Intramuscular 07/21/2012 Administered Problems Problem Type SNOMED Code ICD Code Onset Dates Problem Status W/U Status Risk Notes Problem Gastroesophageal reflux disease (043473670) GERD (gastroesophageal reflux disease) (K21.9) Active confirmed Problem Essential hypertension (28485296) Essential (primary) hypertension (I10) Active confirmed Problem Hypertension (22589790) HTN (hypertension) (I10) Active confirmed Problem Hyperlipidemia (19771409) Hyperlipidemia (E78.5) Active confirmed Problem Anxiety (67308232) Anxiety (F41.9) Active confi rmed Problem Body mass index 30+ - obesity (074371408) BMI 30.0-30.9,adult (Z68.30) Active confirmed Problem Sciatica (27926941) Lumbago with sciatica, right side (M54.41) Active confirmed Problem Primary insomnia (8042263) Primary insomnia (F51.01) Active confirmed Problem Sciatica (05129881) Lumbago with sciatica, left side (M54.42) Active confirmed Problem Constipation (37674311) Constipation, unspecified constipation type (K59.00) Active confirmed Problem Flatulence, eructation and gas pain (293517720) Bloating (R14.0) Active confirmed Problem Allergic rhinitis (90212772) Allergic rhinitis, unspecified allergic rhinitis type (J30.9) Active confirmed Problem Mild intermittent asthma (348842085) Mild intermittent asthma without complication (J45.20) Active confirmed Problem Leukocytosis (912396450) Leukocytosis, unspecified type (D72.829) Active confirmed Problem Rheumatoid arthritis (74855180) Rheumatoid arthritis involving multiple sites, unspecified rheumatoid factor presence (M06.9) Active confirmed Problem Hyperlipidaemia (08920376) Hyperlipidemia, unspecified hyperlipidemia type (E78.5) Active confirmed Problem Chronic gouty arthritis (01156848) Chronic gout without tophus, unspecified cause, unspecified site (M1A.9XX0) Active confirmed Problem Bursitis of left shoulder (435840772080643) Bursitis of left deltoid (M75.52) Active confirmed Problem Asthma without status asthmaticus (26424152) Asthma, unspecified asthma severity, unspecified whether complicated, unspecified whether persistent (J45.909) Active confirmed Problem Scleroderma (999203762) Scleroderma (M34.9) Active confirmed Problem Rheumatoid arthritis (99312563) Rheumatoid arthritis, involving unspecified site, unspecified whether rheumatoid factor present (M06.9) Active confirmed Vital Signs Heart Rate 102 /min 10/31/2024 Blood pressure diastolic 68 mm Hg 06/24/2025 Height 65 in 06/24/2025 Blood pressure systolic 110 mm Hg 06/24/2025 Weight 180.6 lbs 06/14/2025 BMI 30.05 kg/m2 06/14/2025 Encounters Encounter Location Date Provider Diagnosis [facility] [address] [facility] [address] [place], [place] [id number] 10/09/2024 Paulettemarissa Moreno URI (upper respirato ry infection) J06.9 [facility] [address] [facility] [address] [place], [place] [id number] 10/31/2024 Sandoval Simms HTN (hypertension) I 10 ; Hyperlipidemia E78.5 ; Night sweats R61 and GERD (gastroesophageal reflux disease) K21.9 [facility] [address] [facility] [address] [place], [place] [id number] 05/01/2025 Sandoval Simms HTN (hypertension) I 10 ; Bloating R14.0 ; Asthma, unspecified asthma severity, unspecified whether complicated, unspecified whether persistent J45.909 and BMI 30.0-30.9,adult Z68.30 [facility] [address] [place], [place] [id number] 06/14/2025 Sandoval Simms Acute cough R05.1 [facility] [address] [place], [place] [id number] 06/24/2025 Sandoval Simms Acute cough R05.1 [facility] [address] [place], [place] [id number] 11/12/2024 Sandoval Simms [facility] [address] [place], [place] [id number] 01/16/2025 Sandoval Simms HTN (hypertension) I 10 and Asthma, unspecified asthma severity, unspecified whether complicated, unspecified whether persistent J45.909 [facility] [address] [facility] [address] [place] [id number] 05/07/2025 Sandoval Parag Screening for breast cancer Z12.39 [facility] [address] [facility] [address] [facility] [address] [place] [id number] 05/20/2025 Sandoval Tuttle Assessments Encounter Date Diagnosis [...] 11/01/2025 11:00:00 AM, [address] [facility], [address], [place], [place], [id number], Insurance Providers Payer Name Payer Address Payer Phone Subscriber Number Group Number Insured Name Patient Relationship to Insured Coverage Start Date Coverage End Date [employer] (MEDICAR E) [address] [address] [place] [address] [id number] Mari Clark Self - patient is the [...]
--- OUTSIDE RECORDS SUMMARY | 2025-09-13 12:35 | XMS_ITS | Clinical Summary ---
Author Organization [facility] [place] Address [address] [place] [address] Phone Care Team Providers Care Monogram Operator Name Role Phone Unavailable Primary Care [...] Health Maintenance Due Date Last Done Comments COVID-19 Vaccine (#1) 06/20/1961 Wellness Exam Medicare 12/19/1963 DTaP/TDaP/Td (1 - Tdap) 12/19/1979 Pneumococcal Vaccine [...] ve 05/14/2020 2:15 PM EDT PREFERRED [facility] Blood VENOUS BLOOD / Unknown Venipuncture / Unknown 05/14/2020 12:52 PM EDT 05/14/2020 12:52 PM EDT us Dagmar Lundberg MD HEMATOLOGY ORDERABLES Final Result [facility] [place] , [address] [place] [address] from Last 3 Months or Most Recently Relevant to Health Maintenance Insurance MEDICARE [place] PART A AND B Member Subscriber Plan / Payer (Ef fective 2008-Present) Name:Mari Pierce Member ID:[id number] Relation to Subscriber:Self Name:Edwar Piercelene Subscriber ID:[id number] Payer ID:Not on file Group ID:Not on file Type:Not on file Address: [address] MEDICARE [place] PART A AND B
--- OUTSIDE RECORDS SUMMARY | 2025-09-13 12:35 | XMS_ITS | Referral Summary ---
Author Organization [facility] ([place], [place], [place], [place], [place]) Address [address] [place] [address] Care Team Providers Care Field Cane Scale Clerk Name Role Phone Sandoval Tuttle MD Primary Care Provider + [phone] Allergies Active Allergy Reactions Criticality Noted Date [...] mg total) by mouth daily. Active pancrelipase, Vhm-Nacm-Acsy, (Creon) 36,000-114,000- 180,000 unit cpDR capsule Take [...] Date Moreno rded Speak language other than Polish at home Not on file 06/08/2024 Want [...] on file Medical Devices Implanted Type Area Solid Waste Disposal Manager Device Identifier Shelf Expiration Date Model / Serial / Lot Wire C Trcr 0.672ugw7.14mm Ss [id number] - [id number] Implanted:Qty: 4 on 11/14/2024 by Osvaldo Sorensen MD at [facility] IMPLANTS Right: Hand CONMED:LINVATEC 08/07/2029 [id number] / / [id number] Wire C Trcr 0.252ztb9.14mm Ss [id number] - [id number] Implanted:Qty: 4 on 11/14/2024 by Osvaldo Sorensen MD at [facility] IMPLANTS Right: Hand CONMED:LINVATEC 11/07/2028 [id number] / / [id number] Insurance [facility] MEDICARE HMO Advance Directives For more information, please contact: [phone] * Full Code (Latest Code Status on File) Date Activated Date Inactivated Comments 11/14/2024 9:15 AM 11/14/2024 4:25 PM Care Teams Field Cane Scale Clerk Relationship Specialty Start Date End Date Sandoval Tuttle MD [address] [place] [facility] [address] [place] [address] PCP - General Family Medicine 11/14/24
--- OUTSIDE RECORDS SUMMARY | 2025-09-13 12:35 | XMS_ITS | Clinical Summary ---
Author Organization [employer] ([place], [place], [place], [place], [place]) Address [address] [place] [address] Care Team Providers Care Rn New Graduate Name Role Phone Sandoval Tuttle MD Primary Care Provider + [phone] Allergies Active Allergy Reactions Criticality Noted Date [...] mg total) by mouth daily. Active pancrelipase, Xwq-Iakv-Akxr, (Creon) 36,000-114,000- 180,000 unit cpDR capsule Take [...] Date Moreno rded Speak language other than Rwandan at home Not on file 06/08/2024 Want [...] 11/05/2025 11/05/2024 Medical Devices Implanted Type Area Management Analyst Device Identifier Shelf Expiration Date Model / Serial / Lot Wire C Trcr 0.035sgj6.14mm Ss [id number] - [id number] Implanted:Qty: 4 on 11/14/2024 by Osvaldo Sorensen MD at [facility] IMPLANTS Right: Hand CONMED:LINVATEC 08/07/2029 [id number] / / [id number] Wire C Trcr 0.363ujt6.14mm Ss [id number] - [id number] Implanted:Qty: 4 on 11/14/2024 by Osvaldo Sorensen MD at [facility] IMPLANTS Right: Hand CONMED:LINVATEC 11/07/2028 [id number] / / [id number] Insurance [employer] MEDICARE HMO Advance Directives For more information, please contact: [phone] * Full Code (Latest Code Status on File) Date Activated Date Inactivated Comments 11/14/2024 9:15 AM 11/14/2024 4:25 PM Care Teams Rn New Graduate Relationship Specialty Start Date End Date Sandoval Tuttle MD [address] [facility] [address] [place] [address] PCP - General Family Medicine 11/14/24
[2025-09-13] MEDS: ALBUTEROL 0.083% 2.5 MG/3 ML NEB IH (13:30)
== END 2025-09-13 23:59 | disposition home or self-care (01) ==
LOC: RT 12:30
PROVIDERS: PCP Family Medicine; Visit Provider Internal Medicine Pulmonary Disease
DX: R94.2 Abnormal results of pulmonary function studies (principal); R06.02 Shortness of breath
CPT/HCPCS: 94010

== ENCOUNTER 2025-10-09 13:09 | Outpatient (CLI) | payer MEDICARE, SELFPAY ==
--- OUTSIDE RECORDS SUMMARY | 2024-05-02 05:15 | XMS_ITS ---
Author Organization [facility] Address [facility] [address] [place] [id number] Care Team Providers Care Chip Mixing Machine Operator Name Role Phone Sandoval Tuttle Primary Care Provider Allergies Allergen (clinical drug ingredient) Drug/Non Drug [...] 05/02/2024 Encounters Encounter Location Date Provider Diagnosis [facility] 36 [facility] [address] [place], [place] [id number] 05/02/2024 Sandoval Tuttle Dizziness R42 and Asthma, [...] Name:Sandoval Kern ry, 11/01/2025 11:00:00 AM, [address] [facility] 36 [facility], [address], [place], [place], [phone], Progress Notes * Yuliana PIERCEeDOB: (64 yo F)Acc No.[id number]:05/02/2024 Progress Notes Patient: Mari HILARIO Provider: Eliot Tuttle M.D. :1960 A ge:63 Y S ex:Female Date:05/02/2024 Address:[address] [place], [place] [phone] Subjective: * Chief Complaints: * 1 . [...] * Images: Billing Information: * Visit Code: 11396 Office Visit, Est Pt., Level 3. * Procedure Codes: G2211 Complex e/m visit add on. * Electronic signature of Alice Tuttle MD on 10/09/2025 at 01:13 PM EST Sign off status: Pending * Provider: Eliot Tuttle M.D. Date: 0 05/02/2024 Generated for Marci khalil/Octavia/Elliotransmitting on: 1 01:13 PM EST History and Physical Notes * HPI [...]
--- OUTSIDE RECORDS SUMMARY | 2024-05-17 06:30 | XMS_ITS ---
Author Organization [facility] Address [facility] [address] [place] [id number] Care Team Providers Care Hiv/Aids Care Nurse Name Role Phone Sandoval Tuttle Primary Care Provider REASON FOR VISIT 6 month check up Encounters Encounter Location Date Provider Diagnosis [facility] [address] [place] [id number] 05/17/2024 Sandoval Tuttle Plan Of Treatment Next Appt Details Provider Name:Sanodval Kern ry, 11/01/2025 11:00:00 AM, [address], [address], [place], [place], [id number], Progress Notes * Papa PIERCEOB: (64 yo F)Acc No.[id number]:05/17/2024 Progress Notes Patient: Mari HILARIO Provider: Eliot Tuttle M.D. :1960 A ge:63 Y S ex:Female Date:05/17/2024 [facility] Subjective: * Chief Complaints: * 1 . 6 month check up. * Medical History: Objective: * Vitals: Assessment: Plan: * Treatment: * Images: Billing Information: * Visit Code: * Procedure Codes: * Electronic signature of Alice Tuttle MD on 10/09/2025 at 01:13 PM EST Sign off status: Pending * Provider: Eliot Tuttle M.D. Date: 0 05/17/2024 Generated for Marci khalil/Octavia/eTransmitting on: 1 01:13 PM EST
--- OUTSIDE RECORDS SUMMARY | 2024-08-10 10:15 | XMS_ITS ---
Author Organization [facility] Address [facility] [facility] [address] [phone] Care Team Providers Care Global Logistics Manager Name Role Phone Sandoval Tuttle Primary Care Provider [phone] Allergies Allergen (clinical drug ingredient) Drug/Non Drug Allergy documented on EMR Reaction Allergy Type Onset Date Status metronidazole Flagyl stomach upset Drug Allergy Active Penicillin rash Drug Allergy Active Results Component Value Reference Range Notes CBC Fingerstick (in house) Reviewed date:08/13/2024 02:19:02 PM Interpretation: Performing Lab: Notes/Report: wbc 12.9 3.5 - 10 lym 4.7% 15 - 50 mid 6.5% 2 - 15 gran 88.8% 35 - 80 rbc 4.11 3.5 - 5.5 hgb 13.7 11.5 - 16.5 hct 41.8 35 - 55 mcv 101.7 75 - 100 mch 33.3 25 - 35 mchc 32.8 31 - 38 plat 357 100 - 400 REASON FOR VISIT possible sinus infection Medications Medication SIG (Take, Route, Frequency, Duration) Notes Start Date End Date Status Meclizine HCl 25 MG 1 tablet as needed O rally every 8 hrs 05/02/2024 Active Symbicort 80-4.5 MCG/ACT INHALE 2 PUFFS INTO THE LUNGS 2 TIMES DAILY; Duration: 90 days Active Furosemide 40 MG TAKE 1 TABLET EVERY DAY; Duration: 90 Active Promethazine-DM 6.25-15 MG/5ML 5 ml as needed Orally every 6 hrs 08/10/2024 Active Omeprazole 40 MG TAKE ONE CAPSULE BY MOUTH DAILY; Duration: 90 days Active Fluticasone Propionate 50 MCG/ACT 1 spray(s) intranasally once a day Active busPIRone HCl 10 MG 1 tab(s) orally 2 ti mes a day; Duration: 90 days Active Metoclopramide HCl 10 MG TAKE ONE TABLET BY MOUTH TWICE A DAY; Duration: 90 Active Montelukast Sodium 10 MG 1 tab(s) orally once a day; Duration: 90 days Active Verapamil HCl 80 MG 1 tab(s) orally once a day; Duration: 90 days Active Centrum Silver Ultra Womens - 1 tab(s) orally once a day; Duration: 90 day(s) 10/24/2013 Active Atorvastatin Calcium 20 MG 1 tab(s) oral ly once a day (at bedtime); Duration: 90 days Active Folic Acid 1 MG 3 tab orally once a day Active Lisinopril 10 MG 1 tab(s) orally once a day; Duration: 90 days Active Famotidine 20 MG 1 tab(s) orally bedtime Active predniSONE 5 MG 1 tab orally once a day Active Loratadine 10 MG 1 tablet Orally Once a day; Duration: 30 day(s) Active Methotrexate 2.5 MG 8 tab orally once weekly 12/18 Active Benzonatate 200 MG 1 capsule as needed Orally Three times a day 08/10/2024 Active Zithromax Z-Juan 250 MG as directed Orall y once daily; Duration: 5 day(s) 08/10/2024 Active Vital Signs Blood pressure systolic 106 mm Hg 08/10/20 24 Blood pressure diastolic 62 mm Hg 024 Heart Rate 72 /min 08/10/2024 Height 65 in 08/10/2024 Weight 181 lbs 08/10/2024 BMI 30.12 kg/m2 08/10/2024 Encounters Encounter Location Date Provider Diagnosis [facility] [address] [facility] [address] [phone] 08/10/2024 Sandoval Tuttle Acute cough R 05.1 Assessments Encounter Date Diagnosis (ICD Code) Assessment Notes Treatment Notes Treatment Clinical Notes Section Notes 08/10/2024 Acute cough (ICD-10 - R05.1) Plan Of Treatment Medication Medication Name Sig Start Date Stop Date Notes Promethazine-DM 6.25-15 MG/5ML 5 ml as n eeded Orally every 6 hrs 08/10/2024 Benzonatate 200 MG 1 capsule as needed Orally Three times a day 08/10/2024 Zithromax Z-Juan 250 MG as directed Orall y once daily; Duration: 5 day(s) 08/10/2024 Next Appt Details Follow Up: prn, Reason: Provider Name:Sandoval Darlyn Erlin ry, 11/01/2025 11:00:00 AM, [address], [place], [phone], Progress Notes * Yuliana PIERCEeDOB: 1 (64 yo F)Acc No.[id number]:08/10/2024 Progress Notes Patient: Mari HILARIO Provider: Eliot Tuttle M.D. :1960 A ge:63 Y S ex:Female Date:08/10/2024 [facility] Subjective: * Chief Complaints: * 1 . Possible sinus infection. * HPI: E NT/respiratory: 63 year old female presents with c/o cough P t complains of greenish yellow sputum production cough for about 10 days. Associated with congestion and shortness of breath. * ROS: D ERMATOLOGY: no R rosemary. n o H yris. G ASTROENTEROLOGY: no N ausea. n o V omiting. U ROLOGY: no D ifficulty urinating. n [...] status: Does not smoke, Former Smoker: No. Yvette is Stacy Talavera. * Medications: T aking [...] once a day (at bedtime) , Taking Famotidine 20 MG Tablet 1 tab(s) orally bedtime , Taking Lisinopril 10 MG Tablet 1 tab(s) orally once a day , Taking Verapamil HCl 80 MG Tablet 1 tab(s) orally once a day , Taking Montelukast Sodium 10 MG Tablet 1 tab(s) orally once a day , Taking Fluticasone Propionate 50 MCG/ACT Suspension 1 spray(s) intranasally once a day , Taking Metoclopramide HCl 10 MG Tablet TAKE ONE TABLET BY MOUTH TWICE A DAY , Taking busPIRone HCl 10 MG Tablet 1 tab(s) orally 2 times a day , Taking Symbicort 80-4.5 MCG/ACT Aerosol INHALE 2 PUFFS INTO THE LUNGS 2 TIMES DAILY , Taking Meclizine HCl 25 MG Tablet 1 tablet as needed Orally every 8 hrs , Taking Omeprazole 40 MG Capsule Delayed Release TAKE ONE CAPSULE BY MOUTH DAILY , Taking Furosemide 40 MG Tablet TAKE 1 TABLET EVERY DAY , Medication List reviewed and reconciled with the patient * Allergies: P enicillin: rash, Flagyl: stomach upset. Objective: * Vitals: W t:181, Temp:98.4, BP:106/62, HR:72, Nurse:kk, Ht: 65, BMI:30.12. * Examination: G eneral Examination: General Appearance: N AD, sitting in a wheel chair. O ral cavity: minimal erythema. H eart: R SR. L ungs: c lear to auscultation.?Back: d orsal kyphosis. E xtremities: c ontractures noted in hands. ? Assessment: * Assessment: 1. A cute cough - R05.1 (Primary) Plan: * Treatment: Value Reference Range w bc 12.9 3.5 - 10 * l ym 4.7% 15 - 50 * m id 6.5% 2 - 15 * g ran 88.8% 35 - 80 * r bc 4.11 3.5 - 5.5 * h gb 13.7 11.5 - 16.5 * h ct 41.8 35 - 55 * m cv 101.7 75 - 100 * m ch 33.3 25 - 35 * m chc 32.8 31 - 38 * p lat 357 100 - 400 * Lisbeth Muir 08/10/2024 4:04:07 PM > , Provider reviewed results while patient in office. * Procedure Codes: G 2211 Complex e/[place], [address] CAPILLARY BLOOD DRAW, 98094 CBC WITH AUTO DIFF * Follow Up: p rn * Images: Billing Information: * Visit Code: 81475 Office Visit, Est Pt., Level 3. * Procedure Codes: G2211 Complex e/[place]. [address] CAPILLARY BLOOD DRAW. 20605 CBC WITH AUTO DIFF. * Electronic signature of Alice Tuttle MD on 10/09/2025 at 01:12 PM EST Sign off status: Pending * Provider: Eliot Tuttle M.D. Date: 10/10/2023 Generated for Marci khalil/Octavia/Kellenitting on: 01:12 PM EST History and Physical Notes * HPI (History of Present Illness) Category Sub-Category Detail Notes Category Not es ENT/respiratory cough Pt complains of greenish yellow sputum production cough for about 10 days. Associated with congestion and shortness of breath Examination Category Sub-Category Detail Notes Category Not es General Examination Heart: RSR Lungs: clear to auscultatio n Extremities: contractures noted i n hands General Appearance: NAD, sitting in a wh eel chair Oral cavity: minimal erythema Back: dorsal kyphosis
--- OUTSIDE RECORDS SUMMARY | 2024-08-22 05:30 | XMS_ITS ---
Author Organization [facility] Address 1210 [facility] 36 [facility] [address] [place] [phone] Care Team Providers Care Banana Expert Name Role Phone Sandoval Tuttle Primary Care Provider [phone] REASON FOR VISIT ear ache ,dry cough Encounters Encounter Location Date Provider Diagnosis [facility] [address] [place] [id number] 08/22/2024 Sandoval Tuttle Plan Of Treatment Next Appt Details Provider Name:Sandoval Kern ry, 11/01/2025 11:00:00 AM, [address], [address], [place], [place], [phone], Progress Notes * Yuliana PIERCEeDOB: (64 yo F)Acc No.[id number]:08/22/2024 Progress Notes Patient: Mari HILARIO Provider: Eliot Tuttle M.D. :1960 A ge:63 Y S ex:Female Date:08/22/2024 [facility] Subjective: * Chief Complaints: * 1 . Ear ache ,dry cough. * Medical History: Objective: * Vitals: Assessment: Plan: * Treatment: * Images: Billing Information: * Visit Code: * Procedure Codes: * Electronic signature of Alice Tuttle MD on 10/09/2025 at 01:12 PM EST Sign off status: Pending * Provider: Eliot Tuttle M.D. Date: 10/22/2023 Generated for Marci khalil/Octavia/eTransmitting on: 01:12 PM EST
--- OUTSIDE RECORDS SUMMARY | 2024-10-09 04:45 | XMS_ITS ---
Author Organization [facility] Address [address] [facility] [address] [place] [phone] Care Team Providers Care Raisin Separator Operator Name Role Phone Sandoval Tuttle Primary Care Provider [phone] Paulette Moreno Unavailable [phone] Allergies Allergen (clinical drug ingredient) Drug/Non Drug [...] 10/09/2024 Encounters Encounter Location Date Provider Diagnosis [facility] [facility]10 [facility] [address] [phone] 10/09/2024 Paulette Moreno URI (upper respirato ry [...] [address] , [place], [place], [id number], Progress Notes * Yuliana PIERCEeDOB: (64 yo F)Acc No.[id number]:10/09/2024 Progress Notes Patient: Mari HILARIO Provider: JEFF Hu :1960 A ge:63 Y S ex:Female Date:10/09/2024 Address:[address] [place], [place] [address] Pcp:Sandoval Tuttle Subjective: * Chief Complaints: * [...] G 2211 Complex e/[place], [address] Flu Test- Nasal Swab, Modifiers: QW , 22882 COVID TEST IN HOUSE, Modifiers: QW , 3074F SYST BP LT 130 MM HG, 3078F DIAST BP < 80 MM HG * Follow Up: p rn * Images: Billing Information: * Visit Code: 31231 Office Visit, Est Pt., Level 3. * Procedure Codes: G2211 Complex e/[place]. [address] Flu Test- Nasal Swab. Modifiers: QW 43822 COVID TEST IN HOUSE. Modifiers: QW 3074F SYST BP LT 130 MM HG. 3078F DIAST BP < 80 MM HG. * Electronic signature of Lynn yunstephen Moreno APRN on 10/09/2025 at 01:12 PM EST Sign off status: Pending * Provider: JEFF Hu Date: Generated for Marci khalil/Octavia/eTransmitting on: 01:12 PM EST History and Physical [...]
--- OUTSIDE RECORDS SUMMARY | 2024-10-31 05:00 | XMS_ITS ---
[facility] Address [address] [facility] [address] [phone] Care Team Providers Care Customs Compliance Director Name Role Phone Sandoval Tuttle Primary Care [...] Provider Diagnosis [facility] [address] [phone] 10/31/2024 Sandoval Tuttle HTN (hypertension) I 10 [...] [place], 11/01/2025 11:00:00 AM, [address] [facility] [address], [place], [place], [phone], Progress Notes * Yuliana PIERCEeDOB: (64 yo F)Acc No.[id number]:10/31/2024 Progress Notes Patient: Mari HILARIO Provider: Eliot Tuttle M.D. :1960 A ge:63 Y S ex:Female Date:10/31/2024 Address:[address] [place], [place] [phone] Subjective: * Chief Complaints: * 1 . [...] not smoke, Former Smoker: No. Yvette is Satcy Talavera. * Medications: T aking Loratadine 10 [...] * Images: Billing Information: * Visit Code: 81380 Office Visit, Est Pt., Level 4. * Procedure Codes: G2211 Complex e/m visit add on. * Electronic signature of Alice Tuttle MD on 10/09/2025 at 01:14 PM EST Sign off status: Pending * Provider: Eliot Tuttle M.D. Date: 0 10/31/2024 Generated for Marci khalil/Octavia/Holly on: 1 01:14 PM EST History and Physical Notes * [...]
--- OUTSIDE RECORDS SUMMARY | 2025-05-01 06:30 | XMS_ITS ---
Author Organization [facility] Address 1210 [facility] [address] [place] [id number] Care Team Providers Care Sewer Maintenance Supervisor Name Role Phone Sandoval Tuttle Primary Care Provider [phone] Allergies Allergen (clinical drug ingredient) Drug/Non Drug [...] Problem Body mass index 30+ - obesity (147820303) BMI 30.0-30.9,a dult (Z68.30) Active confirmed Vital Signs Blood pressure systolic 102 mm Hg 05/01/20 25 Blood pressure diastolic 60 mm Hg 025 Height 65 in 05/01/2025 Weight 181 lbs 05/01/2025 BMI 30.12 kg/m2 05/01/2025 Encounters Encounter Location Date Provider Diagnosis [facility] [address] [place] [id number] 05/01/2025 Sandoval Tuttle HTN (hypertension) I 10 [address], [place], [id number], Progress Notes * Papa PIERCEOB: 1 (64 yo F)Acc No.[id number]:05/01/2025 Progress Notes Patient: Mari HILARIO Provider: Eliot Tuttle M.D. :1960 A ge:64 Y S ex:Female Date:05/01/2025 Address:[address] [place] [address] Subjective: * Chief Complaints: * 1 . [...] whether persistent - J45.909 4 . B OK 30.0-30.9,adult - Z68.30 Plan: * Treatment: 2. B loating Notes: OTC probiotic recommended * Procedure Codes: G 2211 Complex e/m visit add on, 1036F TOBACCO NON-USER, G8950 PREHTN/HTN BP DOC INDCD F/U DOC, G8752 MOST RECENT SYSTOLIC BP < 140MM HG, G8754 MOST RECENT DIASTOLIC BP < 90MM HG * Follow Up: 6 Months * Images: Billing Information: * Visit Code: 78240 Office Visit, Est Pt., Level 3. * [...] M.D. Date: 0 05/01/2025 Generated for Marci khalil/Octavia/Kellenitting on: 1 01:13 PM EST History and [...]
--- OUTSIDE RECORDS SUMMARY | 2025-06-14 06:30 | XMS_ITS ---
Author Organization [facility] Address [facility] [address] [place] [phone] Care Team Providers Care Infection Control Nurse Name Role Phone Sandoval Tuttle Primary [...] day; Duration: 90 days Active Vital Signs Blood pressure systolic 108 mm Hg 06/14/20 25 Blood pressure diastolic 68 mm Hg 025 Height 65 in 06/14/2025 Weight 180.6 lbs 06/14/2025 BMI 30.05 kg/m2 06/14/2025 Encounters Encounter Location Date Provider Diagnosis [facility] 1210 [facility] 36 [facility] [address] [place], [place] [phone] 06/14/2025 Sandoval Tuttle Acute cough R 05.1 [...] Name:Sandoval Kern ry, 11/01/2025 11:00:00 AM, 1210 [facility] 36 [facility], [address], [place], [place], [phone], Progress Notes * Yuliana PIERCEeDOB: 1 (64 yo F)Acc No.[id number]:06/14/2025 Progress Notes Patient: Mari HILARIO Provider: Eliot Tuttle M.D. :1960 A ge:64 Y S ex:Female Date:06/14/2025 Address:[address] [place], [place] [phone] Subjective: * Chief Complaints: * 1 . [...] G 2211 Complex e/[place], [address] CBC WITH AUTO DIFF, 82335 VENIPUNCT, ROUTINE*, 1036F TOBACCO NON-USER, G8752 MOST RECENT SYSTOLIC BP < 140MM HG, G8754 MOST RECENT DIASTOLIC BP < 90MM HG, G8783 BP SCR PRFRM RCMDD DEFIND SCR INTVL * Follow Up: v ia phone to report progress * Images: Billing Information: * Visit Code: 00079 Office Visit, Est Pt., Level 3. * Procedure Codes: G2211 Complex e/[place]. [address] CBC WITH AUTO DIFF. 65134 VENIPUNCT, ROUTINE*. 1036F TOBACCO NON-USER. G8752 MOST RECENT SYSTOLIC BP < 140MM HG. G8754 MOST RECENT DIASTOLIC BP < 90MM HG. G8783 BP SCR PRFRM RCMDD DEFIND SCR INTVL. * Electronic signature of Alice Tuttle MD on 10/09/2025 at 01:12 PM EST Sign off status: Pending * Provider: Eliot Tuttle M.D. Date: 0 06/14/2025 Generated for Marci khalil/Octavia/eTransmitting on: 01:12 PM [...]
--- OUTSIDE RECORDS SUMMARY | 2025-06-24 09:15 | XMS_ITS ---
Author Organization [facility] Address [facility] [address] [place] [id number] Care Team Providers Care Pediatric Dietician Name Role Phone Sandoval Tuttle Primary Care [...] 06/24/2025 Encounters Encounter Location Date Provider Diagnosis [facility] 1210 [facility] 36 [facility] [address] [place] [id number] 06/24/2025 Sandoval Tuttle Acute cough R 05.1 [...] 11/01/2025 11:00:00 AM, [address] [facility], [address], [place], [phone], Progress Notes * Papa PIERCEOB: 1 (64 yo F)Acc No.[id number]:06/24/2025 Progress Notes Patient: Mari HILARIO Provider: Eliot Tuttle M.D. :1960 A ge:64 Y S ex:Female Date:06/24/2025 [address] [facility] Subjective: * Chief Complaints: * 1 . [...] G 2211 Complex e/[place], [address] CBC WITH AUTO DIFF, 78239 VENIPUNCT, ROUTINE*, 1036F TOBACCO NON-USER, G8783 BP SCR PRFRM RCMDD DEFIND SCR INTVL, G8752 MOST RECENT SYSTOLIC BP < 140MM HG, G8754 MOST RECENT DIASTOLIC BP < 90MM HG, 3074F SYST BP LT 130 MM HG, 3078F DIAST BP < 80 MM HG * Follow Up: v ia phone to report progress * Images: Billing Information: * Visit Code: 92874 Office Visit, Est Pt., Level 3. * Procedure Codes: G2211 Complex e/[place]. [address] CBC WITH AUTO DIFF. 67632 VENIPUNCT, ROUTINE*. 1036F TOBACCO NON-USER. G8783 BP [...] 06/24/2025 Generated for Marci khalil/Octavia/eTkacysmitting on: 1 01:13 PM EST History and [...]
--- OUTSIDE RECORDS SUMMARY | 2025-10-09 13:12 | XMS_ITS | Clinical Summary ---
Author Organization [facility] Address [address] [place] [address] Care Team Providers Care State Epidemiologist Name Role Phone Unavailable Primary Care Provider [...] Date Last Done Comments [facility]-Depression Screening 1960 [facility]-Infant/Child/Adol SDOH Screenings 1960 [facility]- SDOH Screenings 1978 [...] 03/18/2013 03/18/2008, 02/07, 02/05/2005, Additional history exists KQT-CHLYU-90 Vaccine (2024- season) 2025 06/08/2021, 01/09/2021, 12/12/2020 [facility]-Influenza Vaccine (#1) 06/10/202506/24, 07/10/2020, 08/03/2019, Additional history exists [facility]-RSV Vaccine: 60+ Years or (1 - 1-dose 75+ series) 12/19/2035 HPV Vaccines (No Doses Required) Completed [facility]-HIB Vaccines Aged Out No longer e [...] Narrative SUNQUEST - 03/21/2008 3:01 PM EDT [facility] MR #: [id number] [place], [place] [address] 1960 (Age: 47) FU Collect Date: 03/18/2008 00:00 Receipt Date: 03/19/2008 10:07 Page 1 DEPARTMENT OF PATHOLOGY AND LABORATORY MEDICINE CYTOPATHOLOGY REPORT Email: [email or web address] [phone] ATTENDING MD/Practitioner: Emma Ochoa MD Service: [facility] [place] [facility] Reported: 03/21/2008 15:01 Collected: 03/18/2008 00:00 INTERPRETATION A. THIN PREP (CERVICAL/VAGINAL): NEGATIVE FOR INTRAEPITHELIAL LESION OR MALIGNANCY. SATISFACTORY FOR EVALUATION; TRANSFORMATION ZONE COMPONENT CANNOT BE DEFINITIVELY IDENTIFIED DUE TO THE PRESENCE OF ATROPHY OR OTHER HORMONAL CHANGES. Slide scanned and imaged by [facility] ThinPrep Imaging System with manual review of [...] results is suggested (please call Microbiology at [phone] for results). CLINICAL INFORMATION: Menstrual History: Postmenopausal Date of Last Menstrual Period: {Not Provided} Other Clinical Conditions: If ASCUS and > 24 years of age, HPV/DNA testing requested. SPECIMEN DESCRIPTION: A: THIN PREP (CERVICAL/VAGINAL) THIN PREP PROCESS CELLULAR ENHANCEMENT ICD: V76.2 CERVIX, SPECIAL SCREENING FOR MALIGNANT NEOPLASM F: A; RT IMAGE [id number] SNOMED CODES: A; K8D128 [id number] M-[id number] In cases where a pathologist has signed out the report, the service has been rendered in part by a resident. The signing pathologist has performed and is responsible for the reported pathologic evaluation. Historical Provider LAB PATHOLOGY ORDERABLES Fin al Result SUNQUEST from Last 3 Months or Most Recently Relevant to Health Maintenance
--- OUTSIDE RECORDS SUMMARY | 2025-10-09 13:12 | XMS_ITS | Clinical Summary ---
[facility] Address [address] [place] [address] Care Team Providers Care Assistant Technician Name Role Phone Sandoval Tuttle MD Primary Care Provider [phone] Social History Tobacco Use Types Packs/Day Years [...] 07/10/2018 HEPATITIS C SCREENING Completed 05/14/2020 Insurance [facility] MEDICARE ADVANTAGE Care Teams Assistant Technician Relationship Specialty Start Date End Date Sandoval Tuttle MD [address] [place] [facility] [address] [place] [address] PCP - General Family Medicine 01/06/23
--- OUTSIDE RECORDS SUMMARY | 2025-10-09 13:13 | XMS_ITS | Patient Health Record ---
[facility] Address [address] [place] [id number] Care Team Providers Care Intel Recruiter Name Role Phone Sandoval Tuttle Primary Care Provider Paulette Moreno Unavailable [phone] Allergies Allergen (clinical drug ingredient) Drug/Non Drug [...] - 38 platlet 370 100 - 400 H-Sed Rate Reviewed date:11/12/2024 12:23:51 PM Interpretation: Performing Lab: Notes/Report: H-CRP Reviewed date:11/12/2024 12:23:38 PM Interpretation: Performing Lab: Notes/Report: H-CMP Reviewed date:11/12/2024 12:23:26 PM Interpretation: Performing Lab: Notes/Report: H-Lipid Panel Reviewed date:11/12/2024 12:23:14 PM Interpretation: Performing Lab: Notes/Report: H-Microalbumine/Creatinine Reviewed date:11/12/2024 12:23:03 PM Interpretation: Performing Lab: Notes/Report: H-TSH Reviewed date:11/12/2024 12:22:52 PM Interpretation: Performing Lab: Notes/Report: H-Sed Rate [...] Performing Lab: Notes/Report: TSH 1.88 0.465-4.68 uIU/mL CBC Venipuncture (in house) Reviewed date:06/25/2025 10:56:26 [...] - 38 platlet 412 100 - 400 Medications Medication SIG (Take, Route, Frequency, Duration) Notes Start Date End Date Status Furosemide 40 MG TAKE 1 TABLET EVERY DAY; Duration: 90 Active busPIRone HCl 10 MG TAKE 1 TABLET TWICE DAILY; Duration: 90 Active Montelukast Sodium 10 MG 1 tab(s) orally once a day; Duration: 90 days Active Metoclopramide HCl 10 MG TAKE 1 TABLET T WICE DAILY BEFORE MEALS; Duration: 90 Active Zithromax Z-Juan 250 MG as directed Orall y daily; Duration: 5 days 06/24/2025 Active Omeprazole 40 MG TAKE 1 CAPSULE ONCE A DAY 1/2 TO 1 HOUR BEFORE MORNING MEAL; Duration: 90 Active Loratadine 10 MG 1 [...] (18-64yrs)-trivalent- medicare pts ID Intradermal 07/04/2013 Administered bFdblepr-yvzedtwpj-eu dicare pts. IM Intramuscular 08/11/2011 Administered fNxcicvq-tywceagwp-ky dicare pts. IM Intramuscular 07/21/2012 Administered Problems Problem Type SNOMED Code ICD Code Onset Dates Problem Status W/U Status Risk Notes Problem Gastroesophageal reflux disease (259657591) GERD (gastroesophageal reflux disease) (K21.9) Active confirmed Problem Essential hypertension (41115329) Essential (primary) hypertension (I10) Active confirmed Problem Hypertension (93989344) HTN (hypertension) (I10) Active confirmed Problem Hyperlipidemia (16193498) Hyperlipidemia (E78.5) Active confirmed Problem Anxiety (22501950) Anxiety (F41.9) Active confi rmed Problem Body mass index 30+ - obesity (615688861) BMI 30.0-30.9,adult (Z68.30) Active confirmed Problem Sciatica (77801320) Lumbago with sciatica, right side (M54.41) Active confirmed Problem Primary insomnia (5108199) Primary insomnia (F51.01) Active confirmed Problem Sciatica (55609565) Lumbago with sciatica, left side (M54.42) Active confirmed Problem Constipation (90366871) Constipation, unspecified constipation type (K59.00) Active confirmed Problem Flatulence, eructation and gas pain (840508446) Bloating (R14.0) Active confirmed Problem Allergic rhinitis (41673789) Allergic rhinitis, unspecified allergic rhinitis type (J30.9) Active confirmed Problem Mild intermittent asthma (089767136) Mild intermittent asthma without complication (J45.20) Active confirmed Problem Leukocytosis (266727758) Leukocytosis, unspecified type (D72.829) Active confirmed Problem Rheumatoid arthritis (04366026) Rheumatoid arthritis involving multiple sites, unspecified rheumatoid factor presence (M06.9) Active confirmed Problem Hyperlipidaemia (56194590) Hyperlipidemia, unspecified hyperlipidemia type (E78.5) Active confirmed Problem Chronic gouty arthritis (99263248) Chronic gout without tophus, unspecified cause, unspecified site (M1A.9XX0) Active confirmed Problem Bursitis of left shoulder (055934470645727) Bursitis of left deltoid (M75.52) Active confirmed Problem Asthma without status asthmaticus (04484648) Asthma, unspecified asthma severity, unspecified whether complicated, unspecified whether persistent (J45.909) Active confirmed Problem Scleroderma (633562933) Scleroderma (M34.9) Active confirmed Problem Rheumatoid arthritis (29998581) Rheumatoid arthritis, involving unspecified site, unspecified whether rheumatoid factor present (M06.9) Active confirmed Vital Signs Heart Rate 102 /min 10/31/2024 Blood pressure diastolic 68 mm Hg 06/24/2025 Height 65 in 06/24/2025 Blood pressure systolic 110 mm Hg 06/24/2025 Weight 180.6 lbs 06/14/2025 BMI 30.05 kg/m2 06/14/2025 Encounters Encounter Location Date Provider Diagnosis [facility] [address] [facility] [address] [place], [place] [id number] 10/09/2024 Paulettemarissa Moreno URI (upper respirato ry infection) J06.9 [facility] [address] [facility] [address] [place], [place] [id number] 10/31/2024 Sandoval Pipestone HTN (hypertension) I 10 ; Hyperlipidemia E78.5 ; Night sweats R61 and GERD (gastroesophageal reflux disease) K21.9 [facility] [address] [facility] [address] [place], [place] [id number] 05/01/2025 Sandoval Pipestone HTN (hypertension) I 10 ; Bloating R14.0 ; Asthma, unspecified asthma severity, unspecified whether complicated, unspecified whether persistent J45.909 and BMI 30.0-30.9,adult Z68.30 [facility] [address] [place], [place] [id number] 06/14/2025 Sandoval Pipestone Acute cough R05.1 [facility] [address] [place], [place] [id number] 06/24/2025 Sandoval Pipestone Acute cough R05.1 [facility] [address] [place], [place] [id number] 11/12/2024 Sandoval Pipestone [facility] [address] [place], [place] [id number] 01/16/2025 Sandoval Pipestone HTN (hypertension) I 10 and Asthma, unspecified asthma severity, unspecified whether complicated, unspecified whether persistent J45.909 [facility] [address] [place], [place] [id number] 05/07/2025 Sandoval Pipestone Screening for breast cancer Z12.39 [facility] [address] [place], [place] [id number] 05/20/2025 Sandoval Pipestone [facility] [address] [facility] [address] [place] [id number] 09/16/2025 Sandoval Pipestone Assessments Encounter Date Diagnosis (ICD Code) Assessment Notes Treatment Notes Treatment Clinical Notes Section Notes 10/31/2024 HTN (hypertension) (ICD-10 - I10) 10/31/2024 Hyperlipidemia (ICD-10 - E78.5) 10/09/2024 URI (upper respiratory infection) (ICD-10 - J06.9) fluids, rest, supportive measures for fever/symptom relief; has an albuterol inhaler at home which she will use bid-tid 01/16/2025 HTN (hypertension) (ICD-10 - I10) 05/01/2025 HTN (hypertension) (ICD-10 - I10) 06/24/2025 Acute cough (ICD-10 - R05.1) 05/01/2025 Bloating (ICD-10 - R14.0) OTC probiotic recommended 06/14/2025 Acute cough (ICD-10 - R05.1) 05/07/2025 Screening for breast cancer (ICD-10 - Z12.39) 05/01/2025 Asthma, unspecified asthma severity, unspecified whether complicated, unspecified whether persistent (ICD-10 - J45.909) 01/16/2025 Asthma, unspecified asthma severity, unspecified whether complicated, unspecified whether persistent (ICD-10 - J45.909) 10/31/2024 Night sweats (ICD-10 - R61) 10/31/2024 GERD (gastroesophageal reflux disease) (ICD-10 - K21.9) 05/01/2025 BMI 30.0-30.9,adult (ICD-10 - Z68.30) Plan Of Treatment Pending Test Test Name Order Date Ultrasound : Breasts, bilateral 09/17/20 25 Mammogram 05/07/2025 H-TSH 12/14/2023 H-CMP 12/14/2023 Next Appt Details Provider Name:Sandoval Kern ry, 11/01/2025 11:00:00 AM, [address], [place], [id number], Insurance Providers Payer Name Payer Address Payer Phone Subscriber Number Group Number Insured Name Patient Relationship to Insured Coverage Start Date Coverage End Date [employer] (MEDICAR E) [address] [address] [place] [address] [id number] Mari Clark Self - patient is the [...] one on rt hand LT lbow Colonoscopy 2021 Cholecystectomy 01/22/2011 RT Wrist Replacement 07/05/2011 Thumb Fused 11/24/2011 RT Thumb Repair 10/17/2012 Cataract x 2 10/2015 Hospitalization History Reason Date(Month/Year) Stomach Pain 12/24/2010
--- OUTSIDE RECORDS SUMMARY | 2025-10-09 13:14 | XMS_ITS | Clinical Summary ---
Author Organization [facility] [place] Address [address] [place] [address] Phone Care Team Providers Care Supervisor Baking Name Role Phone Unavailable Primary Care Provider [...] ve 05/14/2020 2:15 PM EDT [facility] Blood VENOUS BLOOD / Unknown Venipuncture / Unknown 05/14/2020 12:52 PM EDT 05/14/2020 12:52 PM EDT us Dagmar Lundberg MD HEMATOLOGY ORDERABLES Final Result [facility] [address] [facility] , [place] [address] from Last 3 Months or Most Recently Relevant to Health Maintenance Insurance MEDICARE [place] PART A AND B Member Subscriber Plan / Payer (Ef fective 2008-Present) Name:Mari Pierce Member ID:[id number] Relation to Subscriber:Self Name:Edwar Piercelene Subscriber ID:[id number] Payer ID:Not on file Group ID:Not on file Type:Not on file Address: [address] MEDICARE [place] PART A AND B
--- OUTSIDE RECORDS SUMMARY | 2025-10-09 13:14 | XMS_ITS | Clinical Summary ---
Author Organization [employer] ([place], [place], [place], [place], [place]) Address [address] [place] [address] Care Team Providers Care Supervisor Payroll Name Role Phone Sandoval Tuttle MD Primary Care Provider + [phone] Allergies Active Allergy Reactions Criticality Noted Date [...] mg total) by mouth daily. Active pancrelipase, Jzp-Zjev-Aonl, (Creon) 36,000-114,000- 180,000 unit cpDR capsule Take [...] Date Moreno rded Speak language other than Chinese at home Not on file 06/08/2024 Want [...] 11/05/2025 11/05/2024 Medical Devices Implanted Type Area Haz Tech Device Identifier Shelf Expiration Date Model / Serial / Lot Wire C Trcr 0.602pls0.14mm Ss [id number] - [id number] Implanted:Qty: 4 on 11/14/2024 by Osvaldo Sorensen MD at [facility] IMPLANTS Right: Hand CONMED:LINVATEC 08/07/2029 [id number] / / [id number] Wire C Trcr 0.136nzi3.14mm Ss [id number] - [id number] Implanted:Qty: 4 on 11/14/2024 by Osvaldo Sorensen MD at [facility] IMPLANTS Right: Hand CONMED:LINVATEC 11/07/2028 [id number] / / [id number] Insurance [employer] MEDICARE HMO Advance Directives For more information, please contact: [phone] * Full Code (Latest Code Status on File) Date Activated Date Inactivated Comments 11/14/2024 9:15 AM 11/14/2024 4:25 PM Care Teams Supervisor Payroll Relationship Specialty Start Date End Date Sandoval Tuttle MD [address] [facility] [address] [place] [address] PCP - General Family Medicine 11/14/24
--- OUTSIDE RECORDS SUMMARY | 2025-10-09 13:14 | XMS_ITS | Referral Summary ---
Author Organization [employer] ([place], [place], [place], [place], [place]) Address [address] [place] [address] Care Team Providers Care Casino Accountant Name Role Phone Sandoval Tuttle MD Primary Care Provider + [phone] Allergies Active Allergy Reactions Criticality Noted Date [...] mg total) by mouth daily. Active pancrelipase, Vcv-Dqfp-Emft, (Creon) 36,000-114,000- 180,000 unit cpDR capsule Take [...] Date Moreno rded Speak language other than Latvian at home Not on file 06/08/2024 Want [...] on file Medical Devices Implanted Type Area Lecturer In Marketing Device Identifier Shelf Expiration Date Model / Serial / Lot Wire C Trcr 0.771vnl6.14mm Ss [id number] - [id number] Implanted:Qty: 4 on 11/14/2024 by Osvaldo Sorensen MD at [facility] IMPLANTS Right: Hand CONMED:[employer] 08/07/2029 [id number] / / [id number] Wire C Trcr 0.690hqt8.14mm Ss [id number] - [id number] Implanted:Qty: 4 on 11/14/2024 by Osvaldo Sorensen MD at [facility] IMPLANTS Right: Hand [employer]MED:[employer] 11/07/2028 [id number] / / [id number] Insurance [facility] MEDICARE HMO Advance Directives For more information, please contact: [phone] * Full Code (Latest Code Status on File) Date Activated Date Inactivated Comments 11/14/2024 9:15 AM 11/14/2024 4:25 PM Care Teams Casino Accountant Relationship Specialty Start Date End Date Sandoval Tuttle MD [address] [place] [facility] [address] [place] [address] PCP - General Family Medicine 11/14/24
--- OUTSIDE RECORDS SUMMARY | 2025-10-09 13:14 | XMS_ITS | Data Portability ---
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 Role Phone LONNIE SOLANO Primary Care [...] aminotrans ferase), serum or plasma 2019 020 [facility] (Lab), [address], [place], [address], 0 15:33:22 AST/SGOT (aspartate aminotrans ferase), serum or plasma 2019 020 [facility] (Lab), [address], [place], [address], 0 15:33:09 CBC w/ auto diff 2019 020 [facility] (Lab), [address], [place], [address], 0 15:34:33 creatinine , serum or plasma 2019 020 [facility] (Lab), [address], [place], [address], 0 15:32:57 ESR (erythrocy te sedimentat ion rate), blood 2019 020 [facility] (Lab), [address], [place], [address], 0 15:34:22 ALT (alanine aminotrans ferase), serum or plasma [address] (Lab), [address], [place], [address], 9 10:37:56 AST/SGOT (aspartate aminotrans ferase), serum or plasma [address] (Lab), [address], [place], [address], 9 10:37:56 CBC w/ auto diff [address] (Lab), [address], [place], [address], 9 10:37:56 creatinine , serum or plasma [address] (Lab), [address], [place], [place], [address], 9 10:37:56 ESR (erythrocy te sedimentat ion rate), blood 2018 019 [email or web address] [facility] (Lab), [address], [place], [address], 9 10:37:57 CBC w/ auto diff [address] (Lab), [address], [place], [place], [address], 8 08:10:55 ALT (alanine aminotrans ferase), serum or plasma [address] (Lab), [address], [place], [address], 8 08:10:55 AST/SGOT (aspartate aminotrans ferase), serum or plasma [address] (Lab), [address], [place], [address], 8 08:10:55 CBC w/ auto diff [address] (Lab), [address], [place], [place], [address], 8 08:10:55 creatinine , serum or plasma [address] (Lab), [address], [place], [address], 8 08:10:55 ESR (erythrocy te sedimentat ion rate), blood [address] (Lab), [address], [place], [address], 8 08:10:55 CBC w/ auto diff 2017 018 [email or web address] [facility] (Lab), [address], [place], [address], 8 11:10:12 ALT (alanine aminotrans ferase), serum or plasma [address] (Lab), [address], [place], [address], 8 07:27:32 AST/SGOT (aspartate aminotrans ferase), serum or plasma [address] (Lab), [address], [place], [address], 8 07:27:33 CBC w/ auto diff [address] (Lab), [address], [place], [address], 8 07:27:33 creatinine , serum or plasma [address] (Lab), [address], [place], [address], 8 07:27:33 ESR (erythrocy te sedimentat ion rate), blood [address] (Lab), [address], [place], [address], 8 07:27:33 Referral hand therapy referral [address] [facility], [address], [address], [place], [address], 8 09:52:32 Procedures None recorded. Surgeries None recorded. Imaging DEXA 2019 020 [facility] (X-Ray), [address], [place], [address], 0 13:46:38 Medication Orders prednisone 5 mg tablet 2019 020 INTERFACE [facility], [address] [facility] [place], [address], 0 15:11:20 methotrexa te sodium 2.5 mg tablet 2019 020 INTERFACE [facility], [address] [place], [address], 0 15:11:20 prednisone 5 mg tablet 2018 019 INTERFACE [facility], [address] [place] [address], [place] [address], [place], [id number], 9 16:03:05 methotrexa te sodium 2.5 mg tablet 2017 018 smoberly [facility], [address], [address], [place], [place], [id number], 8 14:23:28 prednisone 5 mg tablet 2017 018 smoberly [facility], [address], [address], [place], [place], [id number], 8 14:23:28 Prolia 60 mg/mL subcutaneo us syringe 2017 018 [email or web address] [facility], [address] [facility] [place], [address], 9 15:45:53 methotrexa te sodium 2.5 mg tablet 2017 018 INTERFACE [facility], [address], [place] [address], [place], [id number], 8 13:57:15 prednisone 5 mg tablet 2017 018 INTERFACE [facility], [address], [place], [place], [id number], 8 13:57:15 Patient TargetsNo targets recorded. Patient Instructions Encounter Date Encounter Id Patient Instructions Last Modified By Organization Details Last Modified Time 02/13/2018 [id number] eating healthy foods: care instructions smoberly Not available 02/13/2018 13:57:13 scleroderma: car e instructions smoberly Not available 02/13/2018 13:57:13 05/16/2018 [id number] osteoporosis: care instructions smoberly Not available 05/16/2018 18:39:01 08/08/2018 [id number] eating healthy foods: care instructions smoberly Not available 08/08/2018 14:23:28 scleroderma: car e instructions smoberly Not available 08/08/2018 14:23:28 03/21/2019 [id number] eating healthy foods: care instructions smoberly Not available 03/21/2019 16:03:04 scleroderma: car e instructions smoberly Not available 03/21/2019 16:03:04 10/30/2019 [id number] osteoporosis: care instructions smoberly Not available 10/30/2019 [...] 11/13/2019 DEXA No observ ation record ed. [facility] [address] [facility] [address] [facility], [place], [id number], 11/14/2019 18:20:29 Result Notes None recorded. Problems Name Problem SNOMED Code Status Onset Date Resolution Date Notes Provider Name and Address Organization Details Recorded Time Systemic sclerosis 36833235 Active 2014 From Automated Load;Provi evonne: Schmid, Orin;Stat us: Active Not Available [facility] 6 05:17:28 Seronegat apryl rheumatoi d arthritis 526170861 Active 2014 From Automated Load;Provi evonne: Schmid, Orin;Stat us: Active Not Available [facility] 6 05:17:28 Osteoporo sis 32993383 Active 2015 From Automated Load;Provi evonne: Labolt, Sima;St atus: Active Not Available [facility] 6 05:17:28 Problem Notes None recorded. Medical Equipment None Reported. Allergies Allergen ID Allergen Name Allergen Category Reaction Reaction Severity Criticality Documentation Date Start Date Code Code System Note Provider Name and Address Organization Details Recorded Time 646679 Product containin g penicilli n (product) medicatio n Not available Not available Not available 09/03/20162010 86601 8001 SNOMED Comme nt: Creat ed By: Romeo sánchezCre ated Date: 2010 9:28: 34 AM; Not Available [facility] 6 04:19:29 Medications Name Sig Start Date [...] 101 /min 91/64 mm[Hg] Marisol Castellon [facility] 10/30/2019 14:55:10 Date Recorded Body height Body mass index (BMI) Body weight Respiratory rate Heart rate Systolic And Diastolic Provider Name and Address Organization Details Last Updated DateTime 8 165.1 cm 27.8 kg/m2 27067.9 3 g 16 /min 107 /min 111/71 mm[Hg] January Patito [facility] 8 13:42:34 Date Recorded Body height Body mass index (BMI) Body weight Respiratory rate Heart rate Systolic And Diastolic Provider Name and Address Organization Details Last Updated DateTime 9 165.1 cm 30.5 kg/m2 22244.4 g 18 /min 94 /min 98/76 mm[Hg] Carlita Guevara [facility] 9 15:44:22 Date Recorded Body height Body mass index (BMI) Body weight Respiratory rate Heart rate Systolic And Diastolic Provider Name and Address Organization Details Last Updated DateTime 8 165.1 cm 27.8 kg/m2 05584.9 3 g 18 /min 59 /min 116/77 mm[Hg] Nevaeh Andrews [facility] 8 14:00:50 Social History Question Answer Notes LastModified by [employer] Details LastModified Time Tobacco Smoking Status Never Smoker Tresa Kelley [facility] 02/10/2017 14:31:18 How Much Tobacco Do You Chew? None [email or web address] Information not available 03/21/2019 What Was The Date Of Your Most Recent Tobacco Screening? 03/21/2019 Information n ot available 11/27/2019 How Much Tobacco Do You Smoke? No [email or web address] Information not available 03/21/2019 How Many Years Have You Smoked Tobacco? 0 [email or web address] Information not available 03/21/2019 Sex: Unknown Functional Status Question Answer Note LastModified by [employer] Details LastModified Time What is your level of alcohol consumption? None [email or web address] Information not available 02/10/2017 Do you or have you ever used smokeless tobacco? Never used smokeless tobacco [email or web address] Information not available 10/30/2019 Do you or have you ever used e-cigarettes or vape? Never used electronic cigarettes [email or web address] Information not available 10/30/2019 Mental Status None [...] quadrivalent, preservative 8 completed La Kelton Guevara [facility] 03/21/2019 15:46:12 Past Encounters Encounter ID Performer Location Encounter Start Date Encounter Closed Date Diagnosis/Indication Diagnosis SNOMED-CT Code Diagnosis ICD10 Code Diagnosis IMO Codes Diagnosis Note [id number] SIMA MARTINEZ APRN [facility] [place] [address] [place] [address] 1 Osteoporosis 45643020 M81.0 [facility] [id number] injected one 60mg/1mL syringe [id number] SIM[place] [address] [place] [address] 1 02/10/2017 13:28:02 02/10/2017 15:20:18 Osteoporosis 84777019 M81.0 needs clearance labs todaynext injection due april 24, 2017 or laterlabs today Nausea 147918354 R11.0 recurring; will have her f/u with pcp Seronegati ve rheumatoid arthritis 384497802 M06.00 medical terminologist medication therapynor mal systemic examWithou t synovitis or dactylitis [id number] SIMA MARTINEZ APRN [place] [address] 1 04/28/2017 13:37:05 04/28/2017 14:33:24 Osteoporosis 25224969 M81.0 needs clearance labs todaynext injection due april 24, 2017 or laterlabs today [id number] SIMA MARTINEZ APRN [place] [address] 1 08/16/2017 13:19:55 08/22/2017 08:27:15 Osteoporosis 63629054 M81.0 needs clearance labs todaynext injection due october 29, 2017needs bone density --requests for it to be done close to homelabs today Nausea 080794365 R11.0 recurring; will have her f/u with pcp Seronegati ve rheumatoid arthritis 750043995 M06.00 usp medication therapysta ble systemic exam Without major synovitis or dactylitis stiff and limited with bony deformity from RA and OA combinatio n senior care methotrexate user [id number] Z79.899 Postmenopa usal osteoporosis 974009396 M81.0 [id number] [place] [address] [place] [address] 1 11/08/2017 13:18:59 11/09/2017 08:59:29 Osteoporosis 77047477 M81.0 needs clearance labs todaynext injection due october 29, 2017needs bone density --requests for it to be done close to homelabs today [id number] [place] [address] [place] [address] 1 02/13/2018 13:21:56 02/13/2018 14:05:56 Systemic sclerosis 19815343 M34.9 Seronegati ve rheumatoid arthritis 954626152 M06.00 usp medication therapysta ble systemic exam Without major synovitis or dactylitis stiff and limited with bony deformity from RA and OA combinatio n senior care methotrexate user [id number] Z79.899 White bloo d cell disorder 29570617 D72.9 elevated wbc count at 16.5 will obtain further assessment [id number] SIMA MARTINEZ APRN RHEUMATOL [place] [address] [place] [address] 1 05/16/2018 12:47:45 05/16/2018 13:29:04 Osteoporosis 47416021 M81.0 needs clearance labs todaynext injection due october 29, 2017needs bone density --requests for it to be done close to homelabs today [id number] SIMA [place]ARTINEZ [place]N [place] [address] 1 08/08/2018 13:29:44 08/09/2018 07:56:56 Seronegative rheumatoid arthritis 060550883 M06.00 f/u on RA with chronic usp medication therapyWit hout major synovitis or dactylitis todayconti nues with crippling and bony deformity from RA, systemic sclerosis and OA combinatio ncontinue with mtx and prn prednisone take 5 po once weekly, Systemic sclerosis 96717 008 M34.9 overlap syndrome treated as Ra 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 accountant methotrexate user [id number] Z79.899 labs reviewed will obtain labs prior to next visit f/u 6 months or sooner White bloo d cell disorder 00979495 D72.9 elevated wbc count at 13.5 from 16.5 will obtain further assessment today all other labs reviewed [id number] SIMA MARTINEZ APRN RHEUMATOL [facility] [address] [place] [address] 03/21/2019 15:07:26 03/23/2019 13:21:44 Seronegative rheumatoid arthritis 653804728 M06.00 f/u on RA with chronic medical terminologist medication therapyWit hout major synovitis or dactylitis todayconti nues with crippling and bony deformity from RA, systemic sclerosis and OA combinatio ncontinue with mtx and prn prednisone take 5 po once weekly, Systemic sclerosis 51303 008 M34.9 overlap syndrome treated as Ra 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 accountant methotrexate user [id number] 00 Z79.899 labs reviewed will obtain labs prior to next visit f/u 6 months or sooner [id number] SIMA MARTINEZ APRN RHE[facility] [address] [address] 10/30/2019 14:15:11 10/30/2019 15:19:58 Seronegative rheumatoid arthritis 018603564 M06.00 f/u on RA with chronic usp medication therapyWit hout major synovitis or dactylitis todayconti nues with crippling and bony deformity from RA, systemic sclerosis and OA combinatio ncontinue with mtx and prn prednisone take 5 po once weekly, Systemic sclerosis 63904 008 M34.9 overlap syndrome treated as Ra 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 accountant methotrexate user [id number] 00 Z79.899 labs reviewed will obtain labs prior to next visit f/u 6 months or sooner Osteoporosis 30137146 M8 1.0 needs clearance labs todaynext injection [...] ID Nieves Member ID Guarantor Name 10/30/[address] [place] [address] [id number] David Clark [id number] Mari Clark 04/28/2020 1 [place] Mari Clark [id number] Mari Clark 04/28/2020 2 [place] [id number] David Clark Jr [id number] Mari Clark 10/09/2017 PAYMENT PLAN Mari [...] are negative SIMA MARTINEZ APRN [address] [place], [address], [facility] 02/13/2018 14:09:06 08/08/2018 text/html ROS as noted [...] are negative SIMA MARTINEZ APRN [address] [place], [address], [facility] 08/08/2018 14:26:23 03/21/2019 text/html ROS as noted [...] are negative SIMA MARTINEZ APRN [address] [place], [address], [facility] 03/21/2019 16:07:16 10/30/2019 text/html ROS as noted [...] to the ramp here at the [facility] but she is walking around 5000 steps daily; she is losing weight with weight watchers; she currently denies bowel or bladder changes, chest pain, soa, rashes, fevers and all others are negative SIMA MARTINEZ APRN [address] [place], [address], [facility] 10/30/2019 15:15:32 OBGyn Episode No OBEpisode recorded.
--- NOTE | 2025-10-09 13:22 | MM_ITS ---
PROCEDURE INFORMATION: Exam: MG Bilateral Screening 3D Mammography Exam date and time: 10/09/2025 1:29 PM Age: 64 years old Clinical indication: Screening examination TECHNIQUE: Imaging protocol: Bilateral Screening tomosynthesis and 2D mammography including computer-aided detection (CAD) when performed. COMPARISON: 1. MG MM DIG SCREENING MAMM BI W/CAD 06/08/2024 10:16 AM 2. MG MM DIG SCREENING MAMM BI W/CAD 05/20/2023 11:00 AM FINDINGS: MAMMOGRAPHY: Breast composition: There are scattered areas of fibroglandular density. Mass: No suspicious masses. Architectural distortion: None. Calcifications: No suspicious calcifications. Asymmetric density: None. Skin thickening: None. Axillary adenopathy: None. IMPRESSION: No mammographic evidence of malignancy. Annual screening is recommended unless otherwise clinically indicated. ASSESSMENT: BI-RADS Category 1: Negative.
[2025-10-09 13:25] LABS: Hematocrit 38.1 % (37.0-47.0); Hemoglobin 12.4 g/dL (12.2-16.2); Immature Granulocytes % 0.6 %; Mean Corpuscular HGB Conc 32.5 g/dL (31.8-35.4); Mean Corpuscular Hemoglobin 33.4 pg (27.0-31.2); Mean Corpuscular Volume 102.7 fl (81-99); Nucleated Red Blood Cells % 0 %; Platelet Count 299 K/mm3 (142-424); Red Blood Count 3.71 M/mm3 (4.20-5.40); Red Cell Distribution Width-SD 61.2 fL; White Blood Count 13.7 K/mm3 (4.8-10.8)
[2025-10-09 13:57] LABS: Alanine Aminotransferase 27 U/L (12-78); Albumin Level 4.2 g/dl (3.5-5.0); Albumin/Globulin Ratio 1.5 (1.1-1.8); Alkaline Phosphatase 117 U/L (38-126); Anion Gap 12.2 mEq/L (5-15); Aspartate Amino Transferase 35 U/L (14-36); Bilirubin,Total 0.8 mg/dl (0.2-1.3); Blood Urea Nitrogen 37 mg/dl (7-17); Calcium 9.1 mg/dl (8.4-10.2); Carbon Dioxide 29 mmol/L (22.0-30.0); Chloride 97 mmol/L (98-107); Creatinine,Serum 1.10 mg/dl (0.52-1.04); Estimated Glomerular Filt Rate 50 ml/min (>60); GFR (African American) 61 ML/MIN (>60); Globulin 2.8 g/dL (1.3-3.2); Glucose 110 mg/dl (74-100); Potassium 4.2 mmoL/L (3.5-5.1); Sodium 134 mmol/L (136-145); Total Protein,Serum 7.0 g/dl (6.3-8.2)
[2025-10-09 14:02] LABS: C-Reactive Protein 1.5 mg/L (0-4)
[2025-10-09 14:32] LABS: Total Cells Counted 100
[2025-10-09 14:34] LABS: Anisocytosis 1+
[2025-10-09 14:35] LABS: Macrocytosis 1+; Polychromasia 1+
== END 2025-10-09 23:59 | disposition home or self-care (01) ==
LOC: RAD 13:11
PROVIDERS: PCP Family Medicine; Visit Provider Internal Medicine Rheumatology
DX: Z12.31 Encounter for screening mammogram for malignant neoplasm of breast (principal); M35.1 Other overlap syndromes; M81.0 Age-related osteoporosis without current pathological fracture; J84.9 Interstitial pulmonary disease, unspecified; Z79.899 Other long term (current) drug therapy; Z79.52 Long term (current) use of systemic steroids; R92.323 Mammographic fibroglandular density, bilateral breasts
CPT/HCPCS: 36415; 77063; 77067; 80053; 85007; 85025; 85027; 85651; 86140